=== PATIENT | male | born 1940 | race Caucasian/White ===

== ENCOUNTER 2016-08-01 19:03 | Emergency (ER) | payer MEDICARE, BC ==
[2016-08-01 19:08] VITALS: BP 167/81
[2016-08-01] MEDS ORDERED: LORazepam 2 MG/ML MDV IVPUSH ONE (19:25)
[2016-08-01] MEDS ORDERED: Glucagon,Human Recombinant 1 MG Vial IVPUSH ONE (19:25)
[2016-08-01] MEDS ORDERED: Lactated Ringers 1,000 ML IV SCH (19:30)
--- NOTE | 2016-08-01 20:22 | EDM.PDOC ---
ED HPI GI/ABDOMINAL - General Chief Complaint: Gastrointestinal Problem Stated Complaint: PSOOIBLE BLOCKAGE IN ESOPHAGUS Time Seen by Provider: 08/01/16 19:21 Source of Information: Reports: Patient History Limitations: Reports: No limitations - History of Present Illness INITIAL COMMENTS - FREE TEXT/NARRATIVE: The patient presents with an esophageal foreign body. He was eating steak at 6: 15pm and it got stuck in what feels like his lower esophagus. He could not pass even water. This has never happened to him before. He does burp a lot. He has no fever or chills, chest pain or shortness of breath. Timing/Duration: Reports: Hour(s): (6:15 pm) Location: other (epigastric) Quality: Reports: burning Severity: moderate Context: Denies: sick contact, bad/questionable food, out of country travel, recent surgery, recent trauma Associated Symptoms: Denies: chest pain, shoulder pain, fever/chills, nausea/ vomiting - Related Data Allergies/ADRs: Allergies Allergy/AdvReac Type Severity Reaction Status Date / Time azithromycin Allergy Anaphylactic Verified 03/08/16 19:19 Shock chlorhexidine Allergy Rash Verified 03/08/16 19:19 gatifloxacin [From Tequin] Allergy Anaphylactic Verified 03/08/16 19:19 Shock lansoprazole [From Prevacid] Allergy Anaphylactic Verified 03/08/16 19:19 Shock Penicillins Allergy Anaphylactic Verified 03/08/16 19:19 Shock Sulfa (Sulfonamide Allergy Rash Verified 03/08/16 19:19 Antibiotics) Home Meds: Home Meds Latanoprost [Xalatan 0.005% Ophth Soln] 1 drop EYEBOTH BEDTIME 12/15/14 [History ] Metoprolol Succinate [Toprol XL 50mg] 50 mg PO BID 12/15/14 [History] Albuterol [Proventil HFA] 6.7 gm INH Q6H PRN 11/13/15 [History] Multivitamin [Multivitamins] 1 tab PO DAILY 11/13/15 [History] Omeprazole Magnesium [Prilosec Otc] 20 mg PO DAILY 11/13/15 [History] Ondansetron HCl [Zofran] 2 tab PO Q4H PRN 11/13/15 [History] Sennosides/Docusate Sodium [Senna-Docusate Sodium] 1 each PO DAILY 06/05/16 [ History] Furosemide [Lasix] 20 mg PO DAILY #30 tablet 06/08/16 [Rx] Aspirin 325 mg PO DAILY 08/01/16 [History] Past Medical History HEENT History: Reports: Glaucoma, Impaired vision, Sinusitis Other HEENT History: wears eyeglasses Cardiovascular History: Reports: Hypertension Respiratory History: Reports: Bronchitis, recurrent, COPD Gastrointestinal History: Reports: Other (see below) Other Gastrointestinal History: states has alot of heartburn since being on chemo. Genitourinary History: Reports: Chronic renal insuffiency, Other (see below) Other Genitourinary History: Rt nephrectomy Musculoskeletal History: Reports: Arthritis Psychiatric History: Reports: Depression Oncologic (Cancer) History: Reports: Colon, Liver, Metastatic, Renal Other Oncologic History: on chemotherapy, with james cath L chest Dermatologic History: Reports: Psoriasis - Infectious Disease History Infectious Disease History: Reports: Measles, Mumps - Past Surgical History HEENT Surgical History: Reports: Cataract surgery GI Surgical History: Reports: Appendectomy, Cholecystectomy, Colon, Colonoscopy , Colostomy Musculoskeletal Surgical History: Reports: Other (see below) Other Musculoskeletal Surgeries/Procedures:: left ankle surgery 1978 Social & Family History - Family History Family Medical History: Noncontributory Other Oncologic Family History: aunt had brain cancer - Tobacco Use Smoking Status *Q: Former Smoker Years of Tobacco use: 40 Packs/Tins Daily: 1 Used Tobacco, but Quit: Yes Month Tobacco Last Used: 16 Second Hand Smoke Exposure: No - Caffeine Use Caffeine Use: Reports: Soda Other Caffeine Use: occasional - Recreational Drug Use Recreational Drug Use: No - Living Situation & Occupation Living situation: Reports: , with spouse Occupation: retired ED ROS GENERAL - Review of Systems Review Of Systems: See Below Constitutional: Reports: no symptoms HEENT: Reports: No symptoms Respiratory: Reports: No Symptoms Cardiovascular: Reports: No symptoms Endocrine: Reports: no symptoms GI/Abdominal: Reports: Abdominal pain, Other (Steak caught in his esophagus) : Reports: no symptoms Musculoskeletal: Reports: no symptoms ED EXAM, GI/ABD - Physical Exam Exam: See Below Exam Limited By: No limitations General Appearance: alert, no apparent distress Ears: normal external exam Nose: normal inspection Head: atraumatic, normocephalic Neck: normal inspection Respiratory/Chest: no respiratory distress, lungs clear, normal breath sounds Cardiovascular: regular rate, rhythm, no edema, no murmur GI/Abdominal: soft, non tender, no organomegaly, no mass Rectal (Males) Exam: Prostate nodule Extremities: normal inspection Course - Vital Signs Last Recorded V/S: Last Vital Signs Temp 99.1 F 08/01/16 19:05 Pulse 72 08/01/16 19:05 Resp 18 08/01/16 19:05 BP 167/81 H 08/01/16 19:05 Pulse Ox 100 08/01/16 19:05 - Orders/Labs/Meds Orders: Active Orders 24 hr Category Date Time Status Implanted Port Access [RC] URGENT Care 08/01/16 19:24 Active Lactated Ringers [Ringers, Lactated] 1,000 ml Med 08/01/16 19:30 Active IV ASDIRECTED Medication Orders Lactated Ringer's (Ringers, Lactated) 1,000 mls @ 100 mls/hr IV ASDIRECTED SHANNON Last Admin: 08/01/16 19:58 Dose: 100 mls/hr Meds: Medications Generic Name Dose Route Start Last Admin Trade Name Freq PRN Reason Stop Dose Admin Lactated Ringer's 1,000 mls @ 100 mls/hr 08/01/16 19:30 08/01/16 19:58 Ringers, Lactated IV 100 mls/hr ASDIRECTED SHANNON Administration Discontinued Medications Generic Name Dose Route Start Last Admin Trade Name Freq PRN Reason Stop Dose Admin Glucagon 1 mg 08/01/16 19:25 08/01/16 19:52 Glucagen IVPUSH 08/01/16 19:26 1 mg ONETIME ONE Administration Heparin Sodium (Porcine) 500 units 08/01/16 20:28 Heparin Lock Flush 100 Units/Ml Syringe FLUSH 08/01/16 20:29 ONETIME ONE Lorazepam 1 mg 08/01/16 19:25 08/01/16 19:50 Ativan IVPUSH 08/01/16 19:26 1 mg ONETIME ONE Administration - Re-Assessments/Exams Free Text/Narrative Re-Assessment/Exam: 08/01/16 20:20 I ordered an IV LR at 125mL/hr, glucagon 1mg IV and ativan 1mg IV. I went to check on him and it appears the food has passed. He could drink some water. I will discharge him and have him follow up with a general surgeon for an EGD. Departure - Departure Time of Disposition: 20:35 Disposition: Home, Self-Care 01 Condition: good Clinical Impression: Esophageal foreign body Qualifiers: Encounter type: initial encounter Qualified Code(s): T18.108A - Unspecified foreign body in esophagus causing other injury, initial encounter Referrals: Sim Salazar MD [Physician] - 1 Week Forms: ED Department Discharge Additional Instructions: Follow up with Dr Salazar for a scope to look at your esophagus. Try to eat a softer diet until then to avoid food getting stuck again. - My Orders Last 24 Hours: My Active Orders 08/01/16 19:24 Implanted Port Access [RC] URGENT 08/01/16 19:30 Lactated Ringers [Ringers, Lactated] 1,000 ml IV ASDIRECTED - Assessment/Plan Last 24 Hours: My Active Orders 08/01/16 19:24 Implanted Port Access [RC] URGENT 08/01/16 19:30 Lactated Ringers [Ringers, Lactated] 1,000 ml IV ASDIRECTED
== END 2016-08-01 20:48 | disposition home or self-care (01) ==
LOC: JD.ED 19:03
DX: T18.128A Food in esophagus causing other injury, initial encounter (principal); X58.XXXA Exposure to other specified factors, initial encounter; J44.9 Chronic obstructive pulmonary disease, unspecified; I12.9 Hypertensive chronic kidney disease with stage 1 through stage 4 chronic kidney disease, or unspecified chronic kidney disease; N18.9 Chronic kidney disease, unspecified; F32.9 Major depressive disorder, single episode, unspecified; C18.9 Malignant neoplasm of colon, unspecified; Z87.891 Personal history of nicotine dependence; Z88.0 Allergy status to penicillin; Z88.8 Allergy status to other drugs, medicaments and biological substances; Z79.899 Other long term (current) drug therapy
CPT/HCPCS: 96361; 96374; 96375; 99283; J1610; J1642; J2060; J7120; 99284

== ENCOUNTER 2016-10-24 10:52 | Emergency (ER) | payer MEDICARE, BC ==
--- NOTE | 2016-10-24 11:11 | EDM.PDOC ---
ED HPI GENERAL MEDICAL PROBLEM - General Chief Complaint: Chest Pain Stated Complaint: chest pain Time Seen by Provider: 10/24/16 11:00 Source of Information: Reports: Patient History Limitations: Reports: No Limitations - History of Present Illness INITIAL COMMENTS - FREE TEXT/NARRATIVE: 75-year-old male presents for evaluation and treatment of chest pain. Patient reports that the chest pain began around 6:30 this morning. He took 2 325 mg aspirin prior to arrival in the ER. The pain improved after the aspirin. Reports that the chest pain is in his left anterior shoulder and radiates down to his arm. Denies any radiation to his neck or back. He reports some shortness of breath but states this is chronic and has not noticed any changes. He also notes some lightheadedness. Denies any nausea, vomiting, dizziness, syncope, fevers, cough or weakness. Patient denies any recent travel. No cardiac history. No history of MIs, arrhythmias or valve problems. Patient previously smoked but quit about 17 years ago. He is not a diabetic Location: Reports: Chest, Upper Extremity, Left - Related Data Allergies Allergy/AdvReac Type Severity Reaction Status Date / Time azithromycin Allergy Anaphylactic Verified 10/24/16 11:02 Shock chlorhexidine Allergy Rash Verified 10/24/16 11:02 gatifloxacin [From Tequin] Allergy Anaphylactic Verified 10/24/16 11:02 Shock lansoprazole [From Prevacid] Allergy Anaphylactic Verified 10/24/16 11:02 Shock Penicillins Allergy Anaphylactic Verified 10/24/16 11:02 Shock Sulfa (Sulfonamide Allergy Rash Verified 10/24/16 11:02 Antibiotics) Home Meds: Home Meds Metoprolol Succinate [Toprol XL 50mg] 50 mg PO BID 12/15/14 [History] Albuterol [Proventil HFA] 6.7 gm INH Q6H PRN 11/13/15 [History] Multivitamin [Multivitamins] 1 tab PO DAILY 11/13/15 [History] Omeprazole Magnesium [Prilosec Otc] 20 mg PO DAILY 11/13/15 [History] Ondansetron HCl [Zofran] 2 tab PO Q4H PRN 11/13/15 [History] Sennosides/Docusate Sodium [Senna-Docusate Sodium] 1 each PO DAILY 06/05/16 [ History] Furosemide [Lasix] 20 mg PO DAILY #30 tablet 06/08/16 [Rx] Aspirin 325 mg PO DAILY 08/01/16 [History] Past Medical History HEENT History: Reports: Glaucoma, Impaired Vision, Sinusitis Other HEENT History: wears eyeglasses Cardiovascular History: Reports: Hypertension Respiratory History: Reports: Bronchitis, Recurrent, COPD Gastrointestinal History: Reports: Other (See Below) Other Gastrointestinal History: states has alot of heartburn since being on chemo. Genitourinary History: Reports: Chronic Renal Insuffiency, Other (See Below) Other Genitourinary History: Rt nephrectomy Musculoskeletal History: Reports: Arthritis Psychiatric History: Reports: Depression Oncologic (Cancer) History: Reports: Colon, Liver, Metastatic, Renal Other Oncologic History: on chemotherapy, with james cath L chest Dermatologic History: Reports: Psoriasis - Infectious Disease History Infectious Disease History: Reports: Measles, Mumps - Past Surgical History HEENT Surgical History: Reports: Cataract Surgery Cardiovascular Surgical History: Reports: Vascular Surgery Female Surgical History: Reports: Other (See Below) Musculoskeletal Surgical History: Reports: Other (See Below) Social & Family History - Family History Family Medical History: Noncontributory Other Oncologic Family History: aunt had brain cancer - Tobacco Use Smoking Status *Q: Former Smoker Years of Tobacco use: 40 Packs/Tins Daily: 1 Used Tobacco, but Quit: Yes Month Tobacco Last Used: 16 Second Hand Smoke Exposure: No - Caffeine Use Caffeine Use: Reports: Soda Other Caffeine Use: occasional - Recreational Drug Use Recreational Drug Use: No - Living Situation & Occupation Living situation: Reports: , with Spouse Occupation: Retired ED ROS GENERAL - Review of Systems Review Of Systems: See Below Constitutional: Denies: Fever Respiratory: Denies: Cough Cardiovascular: Reports: Chest Pain GI/Abdominal: Denies: Abdominal Pain, Nausea, Vomiting Musculoskeletal: Reports: Shoulder Pain (left), Arm Pain (left) Neurological: Denies: Syncope ED EXAM, GENERAL - Physical Exam Exam: See Below Exam Limited By: No Limitations General Appearance: Alert, WD/WN, No Apparent Distress Ears: Normal External Exam Nose: Normal Inspection Neck: Normal Inspection Respiratory/Chest: No Respiratory Distress, Lungs Clear, Normal Breath Sounds Cardiovascular: Normal Peripheral Pulses, Regular Rate, Rhythm, No Murmur Peripheral Pulses: 2+: Radial (L), Radial (R) GI/Abdominal: Soft, Non-Tender Extremities: Normal Inspection, Normal Range of Motion, Non-Tender Neurological: Alert, Oriented, Normal Cognition Psychiatric: Normal Affect, Normal Mood Skin Exam: Warm, Dry, Normal Color EKG INTERPRETATION EKG Date: 10/24/16 Time: 10:55 Rhythm: NSR Rate (beats/min): 63 [place]: LAD-left axis deviation P-wave: present QRS: RBBB ST-T: normal QT: normal Comparison: no change EKG Interpretation Comments: NSR at 63 bpm. RBBB amd LAFB. atrial premature complex. Reviewed by myself and Dr. Freedman. Course - Vital Signs Last Recorded V/S: Last Vital Signs Temp 36.9 C 10/24/16 11:24 Pulse 70 10/24/16 15:14 Resp 19 10/24/16 15:14 BP 161/75 H 10/24/16 15:14 Pulse Ox 100 10/24/16 15:14 - Orders/Labs/Meds Orders: Active Orders 24 hr Category Date Time Status Cardiac Monitoring [RC] . DIRECTED Care 10/24/16 11:12 Active EKG 12 Lead [EKG Documentation Completion] [RC] STAT Care 10/24/16 11:12 Active Chest 2V [CR] Stat Exams 10/24/16 11:11 Taken Labs: Laboratory Tests 10/24/16 10/24/16 10/24/16 Range/Units 11:20 11:20 11:20 WBC 7.61 (4.23-9.07) K/mm3 RBC 4.77 (4.63-6.08) M/mm3 Hgb 12.3 L (13.7-17.5) gm/L Hct 38.5 L (40.1-51.0) % MCV 80.7 (79.0-92.2) fl MCH 25.8 (25.7-32.2) pg MCHC 31.9 L (32.2-35.5) g/dl RDW Std Deviation 48.0 H (35.1-43.9) fL Plt Count 177 (163-337) K/mm3 MPV 11.4 (9.4-12.3) fl Neut % (Auto) 69.9 H (34.0-67.9) % Lymph % (Auto) 16.3 L (21.8-53.1) % Teller % (Auto) 8.8 (5.3-12.2) % Eos % (Auto) 4.6 (0.8-7.0) Baso % (Auto) 0.3 (0.1-1.2) % Neut # (Auto) 5.32 (1.78-5.38) K/mm3 Lymph # (Auto) 1.24 L (1.32-3.57) K/mm3 Teller # (Auto) 0.67 (0.30-0.82) K/mm3 Eos # (Auto) 0.35 (0.04-0.54) K/mm3 Baso # (Auto) 0.02 (0.01-0.08) K/mm3 PT 10.3 (8.0-13.0) SECONDS INR 0.95 APTT 28 (22-36) SECONDS Sodium 142 (136-145) mEq/L Potassium 3.8 (3.5-5.1) mEq/L Chloride 108 H (98-107) mEq/L Carbon Dioxide 20 L (21-32) mEq/L Anion Gap 17.8 H (5-15) BUN 27 H (7-18) mg/dL Creatinine 1.5 H (0.7-1.3) mg/dL Est Cr Clr Drug Dosing TNP Estimated GFR (MDRD) 46 (>60) mL/min BUN/Creatinine Ratio 18.0 (14-18) Glucose 117 H (83-115) mg/dL Calcium 8.1 L (8.5-10.1) mg/dL Total Bilirubin 0.3 (0.2-1.0) mg/dL AST 12 L (15-37) U/L ALT 17 (16-63) U/L Alkaline Phosphatase 136 H (46-116) U/L Troponin I < 0.017 (0.00-0.056) ng/mL Total Protein 6.6 (6.4-8.2) g/dl Albumin 3.5 (3.4-5.0) g/dl Globulin 3.1 gm/dL Albumin/Globulin Ratio 1.1 (1-2) /12/03 Range/Units 13:26 WBC (4.23-9.07) K/mm3 RBC (4.63-6.08) M/mm3 Hgb (13.7-17.5) gm/L Hct (40.1-51.0) % MCV (79.0-92.2) fl MCH (25.7-32.2) pg MCHC (32.2-35.5) g/dl RDW Std Deviation (35.1-43.9) fL Plt Count (163-337) K/mm3 MPV (9.4-12.3) fl Neut % (Auto) (34.0-67.9) % Lymph % (Auto) (21.8-53.1) % Teller % (Auto) (5.3-12.2) % Eos % (Auto) (0.8-7.0) Baso % (Auto) (0.1-1.2) % Neut # (Auto) (1.78-5.38) K/mm3 Lymph # (Auto) (1.32-3.57) K/mm3 Teller # (Auto) (0.30-0.82) K/mm3 Eos # (Auto) (0.04-0.54) K/mm3 Baso # (Auto) (0.01-0.08) K/mm3 PT (8.0-13.0) SECONDS INR APTT (22-36) SECONDS Sodium (136-145) mEq/L Potassium (3.5-5.1) mEq/L Chloride (98-107) mEq/L Carbon Dioxide (21-32) mEq/L Anion Gap (5-15) BUN (7-18) mg/dL Creatinine (0.7-1.3) mg/dL Est Cr Clr Drug Dosing Estimated GFR (MDRD) (>60) mL/min BUN/Creatinine Ratio (14-18) Glucose (83-115) mg/dL Calcium (8.5-10.1) mg/dL Total Bilirubin (0.2-1.0) mg/dL AST (15-37) U/L ALT (16-63) U/L Alkaline Phosphatase (46-116) U/L Troponin I < 0.017 (0.00-0.056) ng/mL Total Protein (6.4-8.2) g/dl Albumin (3.4-5.0) g/dl Globulin gm/dL Albumin/Globulin Ratio (1-2) Meds: Medications Discontinued Medications Generic Name Dose Route Start Last Admin Trade Name Freq PRN Reason Stop Dose Admin Heparin Sodium (Porcine) Confirm 10/24/16 14:16 10/24/16 14:30 Heparin Lock Flush 100 Units/Ml Administered 10/24/16 14:17 500 units Dose Administration 500 units .ROUTE .STK-MED ONE Heparin Sodium (Porcine) Confirm 10/24/16 14:24 10/24/16 15:21 Heparin Lock Flush 100 Units/Ml Administered 10/24/16 14:25 Not Given Dose 500 units .ROUTE .STK-MED ONE - Radiology Interpretation Free Text/Narrative:: chest 2 view shows no acute intrathoracic changes. Reviewed by myself and Dr. Freedman. - Re-Assessments/Exams Free Text/Narrative Re-Assessment/Exam: 10/24/16 13:00 Labs returned. White blood cell count is 7.1, hemoglobin is 12.3 and platelets are 177. Sodium is 142, potassium 3.8 chloride 108. Anion gap is 17.8. Creatinine is 1.5. BUN is 27. Glucose is 117. AST is 12, ALT 17 and alkaline phosphatase is elevated at 136. PT is 10.3, INR 0.95. PTT is 28. Troponin is within normal limits at less than 0.01 I reviewed the lab, EKG and chest xray results with the patient. Plan will be to repeat the troponin and if normal we will allow him to go home. Patient reports since coming to the ED he has been pain free. No concerns at this time. 10/24/16 14:07 Repeat trop is normal at <0.017 Reviewed repeat trop with the patient. Continues to be pain free. Discharge instructions as documented. Departure - Departure Time of Disposition: 14:08 Disposition: Home, Self-Care 01 Condition: good Clinical Impression: Atypical chest pain Instructions: Nonspecific Chest Pain Referrals: Brendan Caldera MD [Primary Care Provider] - Forms: ED Department Discharge, Return to Work/School Form Additional Instructions: Go home and rest. [id number] aspirin or Tylenol for pain relief. Recommend heat to the sore area. Follow up with her primary care provider as needed. Please return to the ER if your symptoms change or worsen. - My Orders Last 24 Hours: My Active Orders 10/24/16 11:11 Chest 2V [CR] Stat 10/24/16 11:12 Cardiac Monitoring [RC] . DIRECTED EKG 12 Lead [EKG Documentation Completion] [RC] STAT - Assessment/Plan Last 24 Hours: My Active Orders 10/24/16 11:11 Chest 2V [CR] Stat 10/24/16 11:12 Cardiac Monitoring [RC] . DIRECTED EKG 12 Lead [EKG Documentation Completion] [RC] STAT
[2016-10-24 15:16] VITALS: BP 161/75
--- NOTE | 2016-10-25 09:24 | CR ---
Chest: Two views of the chest are obtained. Comparison: Previous chest x-ray 06/02/16. Infusion port seen entering from the left side which is stable in appearance from prior chest x-ray. Heart size is normal. Mediastinum is also within normal limits. Nodule seen with left midlung which is stable. No acute infiltrates are seen. Diaphragms are flattened on the lateral view compatible with emphysematous change. Mild degenerative endplate spurring scattered throughout the spine. Impression: 1. Incidental findings which are stable. Nothing acute is identified on two-view chest x-ray. Diagnostic code #2
== END 2016-10-24 15:22 | disposition home or self-care (01) ==
LOC: JD.ED 10:52
DX: R07.89 Other chest pain (principal); J44.9 Chronic obstructive pulmonary disease, unspecified; I12.9 Hypertensive chronic kidney disease with stage 1 through stage 4 chronic kidney disease, or unspecified chronic kidney disease; N18.9 Chronic kidney disease, unspecified; M19.90 Unspecified osteoarthritis, unspecified site; F32.9 Major depressive disorder, single episode, unspecified; L40.9 Psoriasis, unspecified; Z87.891 Personal history of nicotine dependence; Z85.038 Personal history of other malignant neoplasm of large intestine; Z85.05 Personal history of malignant neoplasm of liver; Z85.53 Personal history of malignant neoplasm of renal pelvis; Z79.82 Long term (current) use of aspirin; Z79.899 Other long term (current) drug therapy; Z88.0 Allergy status to penicillin; Z88.2 Allergy status to sulfonamides; Z88.8 Allergy status to other drugs, medicaments and biological substances; Z88.1 Allergy status to other antibiotic agents; Z98.890 Other specified postprocedural states; Z98.49 Cataract extraction status, unspecified eye
CPT/HCPCS: 36415; 36591; 71020; 80053; 84484; 85025; 85610; 85730; 93005; 99285; J1642; 99284

== ENCOUNTER 2017-02-01 21:04 | Emergency (ER) | payer MEDICARE, BC ==
[2017-02-01 21:13] VITALS: BP 145/76
--- NOTE | 2017-02-01 21:17 | EDM.PDOC ---
ED HPI GENERAL MEDICAL PROBLEM - General Chief Complaint: General Stated Complaint: SOMETHING IN ESOPHAGUS Time Seen by Provider: 02/01/17 21:16 - History of Present Illness INITIAL COMMENTS - FREE TEXT/NARRATIVE: 76-year-old male presents emergency room with some stuck in his lower throat. The patient was eating potato and sausage soup and felt it stuck in his lower throat this occurred about an hour and a half ago. Patient has difficulty passing water he is not having difficulty passing his secretions at this time however. Patient has had a prior occurrence like this that was treated with glucagon. Patient said significant abdominal surgeries for colon cancer complicated by secondary infection and revisions due to this. He thinks he has some scar tissue in his lower esophagus. - Related Data Allergies Allergy/AdvReac Type Severity Reaction Status Date / Time azithromycin Allergy Anaphylactic Verified 02/01/17 21:13 Shock chlorhexidine Allergy Rash Verified 02/01/17 21:13 gatifloxacin [From Tequin] Allergy Anaphylactic Verified 02/01/17 21:13 Shock lansoprazole [From Prevacid] Allergy Anaphylactic Verified 02/01/17 21:13 Shock Penicillins Allergy Anaphylactic Verified 02/01/17 21:13 Shock Sulfa (Sulfonamide Allergy Rash Verified 02/01/17 21:13 Antibiotics) Home Meds: Home Meds Metoprolol Succinate [Toprol XL 50mg] 50 mg PO BID 12/15/14 [History] Albuterol [Proventil HFA] 6.7 gm INH Q6H PRN 11/13/15 [History] Multivitamin [Multivitamins] 1 tab PO DAILY 11/13/15 [History] Omeprazole Magnesium [Prilosec Otc] 20 mg PO DAILY 11/13/15 [History] Ondansetron HCl [Zofran] 2 tab PO Q4H PRN 11/13/15 [History] Sennosides/Docusate Sodium [Senna-Docusate Sodium] 1 each PO DAILY 06/05/16 [ History] Furosemide [Lasix] 20 mg PO DAILY #30 tablet 06/08/16 [Rx] Aspirin 325 mg PO DAILY 08/01/16 [History] Past Medical History HEENT History: Reports: Glaucoma, Impaired Vision, Sinusitis Other HEENT History: wears eyeglasses Cardiovascular History: Reports: Hypertension Respiratory History: Reports: Bronchitis, Recurrent, COPD Gastrointestinal History: Reports: Other (See Below) Other Gastrointestinal History: states has alot of heartburn since being on chemo. Genitourinary History: Reports: Chronic Renal Insuffiency, Other (See Below) Other Genitourinary History: Rt nephrectomy Musculoskeletal History: Reports: Arthritis Psychiatric History: Reports: Depression Oncologic (Cancer) History: Reports: Colon, Liver, Metastatic, Renal Other Oncologic History: off of chemo for the past 9 months, with james cath L chest Dermatologic History: Reports: Psoriasis - Infectious Disease History Infectious Disease History: Reports: Measles, Mumps - Past Surgical History HEENT Surgical History: Reports: Cataract Surgery Cardiovascular Surgical History: Reports: Vascular Surgery Musculoskeletal Surgical History: Reports: Other (See Below) Social & Family History - Family History Family Medical History: Noncontributory Other Oncologic Family History: aunt had brain cancer - Tobacco Use Smoking Status *Q: Former Smoker Years of Tobacco use: 40 Packs/Tins Daily: 1 Used Tobacco, but Quit: Yes Month Tobacco Last Used: 16 Second Hand Smoke Exposure: No - Caffeine Use Caffeine Use: Reports: Soda Other Caffeine Use: occasional - Recreational Drug Use Recreational Drug Use: No - Living Situation & Occupation Living situation: Reports: , with Spouse Occupation: Retired ED ROS GENERAL - Review of Systems Review Of Systems: See Below Constitutional: Reports: No Symptoms HEENT: Reports: No Symptoms Respiratory: Reports: No Symptoms Cardiovascular: Reports: No Symptoms GI/Abdominal: Reports: Abdominal Pain. Denies: Constipation, Diarrhea, Nausea, Vomiting : Reports: No Symptoms Neurological: Reports: No Symptoms ED EXAM, GENERAL - Physical Exam Exam: See Below Exam Limited By: No Limitations General Appearance: Alert, No Apparent Distress, Other (He does better sitting up no problems with secretions vital signs stable afebrile O2 saturation 99% on room air) Head: Atraumatic, Normocephalic Neck: Normal Inspection, Supple, Non-Tender, Full Range of Motion. No: Lymphadenopathy (L), Lymphadenopathy (R) Respiratory/Chest: No Respiratory Distress, Lungs Clear, Normal Breath Sounds Cardiovascular: Regular Rate, Rhythm, No Edema, No Murmur GI/Abdominal: Normal Bowel Sounds, Soft, Non-Tender Course - Vital Signs Last Recorded V/S: Last Vital Signs Temp 36.8 C 02/01/17 21:10 Pulse 66 02/01/17 21:10 Resp 16 09/15/17 21:10 BP 145/76 H 02/01/17 21:10 Pulse Ox 99 02/01/17 21:10 - Orders/Labs/Meds Orders: Active Orders 24 hr Category Date Time Status Lactated Ringers [Ringers, Lactated] 1,000 ml Med 02/01/17 21:30 Active IV ASDIRECTED Medication Orders Lactated Ringer's (Ringers, Lactated) 1,000 mls @ 50 mls/hr IV ASDIRECTED SHANNON Last Admin: 02/01/17 21:42 Dose: 50 mls/hr Meds: Medications Generic Name Dose Route Start Last Admin Trade Name Freq PRN Reason Stop Dose Admin Lactated Ringer's 1,000 mls @ 50 mls/hr 02/01/17 21:30 02/01/17 21:42 Ringers, Lactated IV 50 mls/hr ASDIRECTED SHANNON Administration Discontinued Medications Generic Name Dose Route Start Last Admin Trade Name Freq PRN Reason Stop Dose Admin Lorazepam 1 mg 02/01/17 21:23 02/01/17 21:43 Ativan IVPUSH 02/01/17 21:24 1 mg ONETIME ONE Administration - Re-Assessments/Exams Free Text/Narrative Re-Assessment/Exam: 02/01/17 22:30 Patient received IV Ativan 1 mg and glucagon 1 mg and after about 20 minutes was able to drink 2 glasses of water without difficulty he feels much better we will discharge home Departure - Departure Time of Disposition: 22:30 Disposition: Home, Self-Care 01 Clinical Impression: Esophageal foreign body Qualifiers: Encounter type: initial encounter Qualified Code(s): T18.108A - Unspecified foreign body in esophagus causing other injury, initial encounter - Discharge Information Referrals: Brendan Caldera MD [Primary Care Provider] - Forms: ED Department Discharge Additional Instructions: Return to the emergency room with any questions problems or worsening symptoms. Follow up with her regular physician in the office and discuss the need for further evaluation of this. - My Orders Last 24 Hours: My Active Orders 02/01/17 21:30 Lactated Ringers [Ringers, Lactated] 1,000 ml IV ASDIRECTED - Assessment/Plan Last 24 Hours: My Active Orders 02/01/17 21:30 Lactated Ringers [Ringers, Lactated] 1,000 ml IV ASDIRECTED
[2017-02-01] MEDS ORDERED: LORazepam 2 MG/ML MDV IVPUSH ONE (21:23)
[2017-02-01] MEDS ORDERED: Lactated Ringers 1,000 ML IV SCH (21:30)
== END 2017-02-01 22:47 | disposition home or self-care (01) ==
LOC: JD.ED 21:04
DX: T18.128A Food in esophagus causing other injury, initial encounter (principal); I10 Essential (primary) hypertension; J44.9 Chronic obstructive pulmonary disease, unspecified; F32.9 Major depressive disorder, single episode, unspecified; Z88.1 Allergy status to other antibiotic agents; Z88.0 Allergy status to penicillin; Z88.2 Allergy status to sulfonamides; Z88.8 Allergy status to other drugs, medicaments and biological substances; Z79.899 Other long term (current) drug therapy; Z79.82 Long term (current) use of aspirin; Z98.49 Cataract extraction status, unspecified eye; Z87.891 Personal history of nicotine dependence
CPT/HCPCS: 96361; 96374; 99284; J2060; J7120; 99283

== ENCOUNTER 2017-03-21 18:16 | Observation (INO) | payer MEDICARE, BC ==
[2017-03-21] MEDS ORDERED: Sodium Chloride 0.9% 10 ML Syringe FLUSH PRN (18:30)
--- NOTE | 2017-03-21 19:02 | EDM.PDOC ---
<Dane Mujica - Last Filed: 03/21/17 19:03> ED HPI GENERAL MEDICAL PROBLEM - General Chief Complaint: Chest Pain Stated Complaint: CHEST PAIN Time Seen by Provider: 03/21/17 18:30 Source of Information: Reports: Patient, RN Notes Reviewed - History of Present Illness INITIAL COMMENTS - FREE TEXT/NARRATIVE: 76-year-old male has come in with intermittent chest discomfort that started last evening. That has continued today. States he has been experiencing "brief episodes of discomfort that travel "across my chest". He states he has had mild shortness of breath with exertion. He does not feel short of breath at rest. He has not been coughing. No abdominal pain nausea or vomiting. No unusual dizziness. He has not had discomfort traveling into the back or to the left shoulder or arm. He does not have known history of coronary artery disease. He does have history of hypertension. Treatments [employer]: Reports: EKG Chest Pain Score (Numeric/FACES): 7 - Related Data Allergies Allergy/AdvReac Type Severity Reaction Status Date / Time azithromycin Allergy Anaphylactic Verified 03/21/17 18:24 Shock gatifloxacin [From Tequin] Allergy Anaphylactic Verified 03/21/17 18:24 Shock lansoprazole [From Prevacid] Allergy Anaphylactic Verified 03/21/17 18:24 Shock Penicillins Allergy Anaphylactic Verified 03/21/17 18:24 Shock Sulfa (Sulfonamide Allergy Rash Verified 03/21/17 18:24 Antibiotics) Home Meds: Home Meds Metoprolol Succinate [Toprol XL 50mg] 50 mg PO DAILY 12/15/14 [History] Albuterol [Proventil HFA] 6.7 gm INH Q6H PRN 11/13/15 [History] Multivitamin [Multivitamins] 1 tab PO DAILY 11/13/15 [History] Omeprazole Magnesium [Prilosec Otc] 20 mg PO DAILY 11/13/15 [History] Ondansetron HCl [Zofran] 2 tab PO Q4H PRN 11/13/15 [History] Sennosides/Docusate Sodium [Senna-Docusate Sodium] 1 each PO DAILY 06/05/16 [ History] Furosemide [Lasix] 20 mg PO DAILY #30 tablet 06/08/16 [Rx] Aspirin 325 mg PO DAILY 08/01/16 [History] Allopurinol [Zyloprim] 50 mg PO DAILY 03/21/17 [History] Past Medical History HEENT History: Reports: Glaucoma, Impaired Vision, Sinusitis Other HEENT History: wears eyeglasses Cardiovascular History: Reports: Hypertension Respiratory History: Reports: Bronchitis, Recurrent, COPD Gastrointestinal History: Reports: Other (See Below) Other Gastrointestinal History: states has alot of heartburn since being on chemo. Genitourinary History: Reports: Chronic Renal Insuffiency, Other (See Below) Other Genitourinary History: Rt nephrectomy Musculoskeletal History: Reports: Arthritis Psychiatric History: Reports: Depression Oncologic (Cancer) History: Reports: Colon, Liver, Metastatic, Renal Other Oncologic History: off of chemo for the past 9 months, with james cath L chest Dermatologic History: Reports: Psoriasis - Infectious Disease History Infectious Disease History: Reports: Measles, Mumps - Past Surgical History HEENT Surgical History: Reports: Cataract Surgery Cardiovascular Surgical History: Reports: Vascular Surgery Musculoskeletal Surgical History: Reports: Other (See Below) Social & Family History - Family History Family Medical History: Noncontributory Other Oncologic Family History: aunt had brain cancer - Tobacco Use Smoking Status *Q: Former Smoker Years of Tobacco use: 40 Packs/Tins Daily: 1 Used Tobacco, but Quit: Yes Month Tobacco Last Used: 16 Second Hand Smoke Exposure: No - Caffeine Use Caffeine Use: Reports: Soda Other Caffeine Use: occasional - Recreational Drug Use Recreational Drug Use: No - Living Situation & Occupation Living situation: Reports: , with Spouse Occupation: Retired ED ROS GENERAL - Review of Systems Review Of Systems: See Below Constitutional: Denies: Fever, Chills, Diaphoresis HEENT: Reports: No Symptoms Respiratory: Reports: Shortness of Breath. Denies: Cough (Mild exertional) Cardiovascular: Reports: Chest Pain (Brief episodes of discomfort that "travel across his chest") GI/Abdominal: Denies: Abdominal Pain, Nausea, Vomiting Musculoskeletal: Denies: Neck Pain, Shoulder Pain, Arm Pain Skin: Reports: No Symptoms Neurological: Denies: Dizziness, Numbness, Tingling, Trouble Speaking, Weakness ED EXAM, GENERAL - Physical Exam Exam: See Below General Appearance: Alert, No Apparent Distress Throat/Mouth: Normal Inspection, Normal Oropharynx Neck: Supple Respiratory/Chest: No Respiratory Distress, Lungs Clear, Normal Breath Sounds Cardiovascular: Irregularly Irregular GI/Abdominal: Soft, Non-Tender. No: Guarding Back Exam: Normal Inspection. No: CVA Tenderness (L), CVA Tenderness (R) Extremities: Normal Inspection. No: Pedal Edema, Leg Pain, Increased Warmth, Redness Neurological: Alert, Oriented, No Motor/Sensory Deficits Skin Exam: Warm, Dry, Normal Color EKG INTERPRETATION EKG Date: 03/21/17 [place]: Normal P-Wave: Present QRS: Other (LAFB) ST-T: Normal Course - Vital Signs Last Recorded V/S: Last Vital Signs Temp 36.6 C 03/21/17 18:24 Pulse 73 03/21/17 18:24 Resp 18 03/21/17 18:24 BP 160/73 H 03/21/17 18:24 Pulse Ox 100 03/21/17 18:24 - Orders/Labs/Meds Orders: Active Orders 24 hr Category Date Time Status EKG 12 Lead [EKG Documentation Completion] [RC] STAT Care 03/21/17 18:31 Active Peripheral IV Care [RC] . DIRECTED Care 03/21/17 18:31 Active Chest 1V Frontal [CR] Stat Exams 03/21/17 18:31 Taken Sodium Chloride 0.9% [Saline Flush] Med 03/21/17 18:30 Active 10 ml FLUSH ASDIRECTED PRN Peripheral IV Insertion Adult [OM.PC] Stat Oth 03/21/17 18:31 Ordered Medication Orders Sodium Chloride (Saline Flush) 10 ml FLUSH ASDIRECTED PRN PRN Reason: Keep Vein Open Last Admin: 03/21/17 18:55 Dose: 10 ml Labs: Laboratory Tests 03/21/17 03/21/17 03/21/17 Range/Units 18:47 18:47 18:47 WBC 8.09 (4.23-9.07) K/mm3 RBC 4.66 (4.63-6.08) M/mm3 Hgb 12.9 L (13.7-17.5) gm/L Hct 39.4 L (40.1-51.0) % MCV 84.5 (79.0-92.2) fl MCH 27.7 (25.7-32.2) pg MCHC 32.7 (32.2-35.5) g/dl RDW Std Deviation 43.7 (35.1-43.9) fL Plt Count 179 (163-337) K/mm3 MPV 11.3 (9.4-12.3) fl Neut % (Auto) 69.9 H (34.0-67.9) % Lymph % (Auto) 16.3 L (21.8-53.1) % [place] % (Auto) 9.3 (5.3-12.2) % Eos % (Auto) 4.0 (0.8-7.0) Baso % (Auto) 0.4 (0.1-1.2) % Neut # (Auto) 5.66 H (1.78-5.38) K/mm3 Lymph # (Auto) 1.32 (1.32-3.57) K/mm3 [place] # (Auto) 0.75 (0.30-0.82) K/mm3 Eos # (Auto) 0.32 (0.04-0.54) K/mm3 Baso # (Auto) 0.03 (0.01-0.08) K/mm3 PT (8.0-13.0) SECONDS INR APTT (22-36) SECONDS D-Dimer, Quantitative (0.19-0.59) mg/L Sodium 143 (136-145) mEq/L Potassium 4.0 (3.5-5.1) mEq/L Chloride 109 H (98-107) mEq/L Carbon Dioxide 22 (21-32) mEq/L Anion Gap 16.0 H (5-15) BUN 30 H (7-18) mg/dL Creatinine 1.7 H (0.7-1.3) mg/dL Est Cr Clr Drug Dosing 35.21 mL/min Estimated GFR (MDRD) 39 (>60) mL/min BUN/Creatinine Ratio 17.6 (14-18) Glucose 126 H (83-115) mg/dL Calcium 8.0 L (8.5-10.1) mg/dL Magnesium (1.8-2.4) mg/dl Total Bilirubin 0.3 (0.2-1.0) mg/dL AST 15 (15-37) U/L ALT 15 L (16-63) U/L Alkaline Phosphatase 132 H (46-116) U/L Troponin I < 0.017 (0.00-0.056) ng/mL NT-Pro-B Natriuret Pep 203 (0-450) pg/mL Total Protein 6.2 L (6.4-8.2) g/dl Albumin 3.3 L (3.4-5.0) g/dl Globulin 2.9 gm/dL Albumin/Globulin Ratio 1.1 (1-2) 03/21/17 03/21/17 Range/Units 18:47 18:47 WBC (4.23-9.07) K/mm3 RBC (4.63-6.08) M/mm3 Hgb (13.7-17.5) gm/L Hct (40.1-51.0) % MCV (79.0-92.2) fl MCH (25.7-32.2) pg MCHC (32.2-35.5) g/dl RDW Std Deviation (35.1-43.9) fL Plt Count (163-337) K/mm3 MPV (9.4-12.3) fl Neut % (Auto) (34.0-67.9) % Lymph % (Auto) (21.8-53.1) % [place] % (Auto) (5.3-12.2) % Eos % (Auto) (0.8-7.0) Baso % (Auto) (0.1-1.2) % Neut # (Auto) (1.78-5.38) K/mm3 Lymph # (Auto) (1.32-3.57) K/mm3 [place] # (Auto) (0.30-0.82) K/mm3 Eos # (Auto) (0.04-0.54) K/mm3 Baso # (Auto) (0.01-0.08) K/mm3 PT 10.6 (8.0-13.0) SECONDS INR 0.97 APTT 28 (22-36) SECONDS D-Dimer, Quantitative 0.20 (0.19-0.59) mg/L Sodium (136-145) mEq/L Potassium (3.5-5.1) mEq/L Chloride (98-107) mEq/L Carbon Dioxide (21-32) mEq/L Anion Gap (5-15) BUN (7-18) mg/dL Creatinine (0.7-1.3) mg/dL Est Cr Clr Drug Dosing mL/min Estimated GFR (MDRD) (>60) mL/min BUN/Creatinine Ratio (14-18) Glucose (83-115) mg/dL Calcium (8.5-10.1) mg/dL Magnesium 2.1 (1.8-2.4) mg/dl Total Bilirubin (0.2-1.0) mg/dL AST (15-37) U/L ALT (16-63) U/L Alkaline Phosphatase (46-116) U/L Troponin I (0.00-0.056) ng/mL NT-Pro-B Natriuret Pep (0-450) pg/mL Total Protein (6.4-8.2) g/dl Albumin (3.4-5.0) g/dl Globulin gm/dL Albumin/Globulin Ratio (1-2) Meds: Medications Generic Name Dose Route Start Last Admin Trade Name Freq PRN Reason Stop Dose Admin Sodium Chloride 10 ml 03/21/17 18:30 03/21/17 18:55 Saline Flush FLUSH 10 ml ASDIRECTED PRN Administration Keep Vein Open - Re-Assessments/Exams Free Text/Narrative Re-Assessment/Exam: 03/21/17 19:03. Patient arrived just a short time ago just before change of shift. He is going to need a full cardio respiratory workup. Appropriate labs and chest x-ray have been ordered. I'm going to transfer care to Dr. Zamudio at this time. Departure - Departure Disposition: Refer to Observation Clinical Impression: Chest discomfort <Clifton Zamudio - Last Filed: 03/21/17 21:30> Course - Re-Assessments/Exams Free Text/Narrative Re-Assessment/Exam: 03/21/17 21:[address] Hogue, and care of the patient assumed. I then interviewed the patient. He describes a chest pressure, a discomfort, not a pain , felt across his chest 2 days ago, 03/19/2017 that developed gradually and persisted all day, but was gone yesterday morning, 03/20/2017, when he woke. The same discomfort recurred around noon today and persists until now. He has associated lightheadedness and generally not feeling well. His ECG demonstrates what appears to be either a sinus arrhythmia or a normal sinus rhythm with frequent PACs. The remainder of his workup is unremarkable. The patient states that he underwent a chemical stress test 2 years ago. I am concerned that his symptoms may be an atypical presentation of angina, and I am recommending placement of the hospital for repeat stress test. The patient and his agree. 03/21/17 21:[address] Hopkins at 21:06. He agrees to place the patient into observation for a chemical stress test. Departure - Departure Time of Disposition: 21:10 Condition: Good
[2017-03-21] MEDS ORDERED: Morphine 2 MG/ML Syringe IVPUSH PRN (23:16)
[2017-03-21] MEDS ORDERED: Acetaminophen 325 MG Tab PO PRN (23:16)
[2017-03-21] MEDS ORDERED: Acetaminophen/HYDROcodone 325-5 MG Tab PO PRN (23:16)
[2017-03-21] MEDS ORDERED: Temazepam 15 MG Cap PO PRN (23:18)
[2017-03-21] MEDS ORDERED: Promethazine 12.5 MG in Sodium Chloride 0.9% 50 ML IV PRN (23:18)
[2017-03-21] MEDS ORDERED: Docusate Sodium 100 MG Cap PO PRN (23:18)
[2017-03-21] MEDS ORDERED: Albuterol/Ipratropium 3.0-0.5 MG/3 ML Neb Soln NEB PRN (23:18)
[2017-03-21] MEDS ORDERED: LORazepam 2 MG/ML MDV IV PRN (23:18)
[2017-03-21] MEDS ORDERED: Nitroglycerin 0.4 MG Tab.SL SL PRN (23:18)
[2017-03-21] MEDS ORDERED: Bisacodyl 5 MG Tab PO PRN (23:18)
[2017-03-21] MEDS ORDERED: Ondansetron 4 MG/2 ML SDV IV PRN (23:18)
[2017-03-21] MEDS ORDERED: Polyethylene Glycol 3350 Powder 17 GM Packet PO PRN (23:18)
--- NOTE | 2017-03-21 23:22 | PCM.HP ---
H&P History of Present Illness - General Date of Service: 03/21/17 Admit Problem/Dx: Admission Diagnosis/Problem Admission Diagnosis/Problem Chest discomfort Source of Information: Patient, Old Records, Provider, RN, RN Notes Reviewed History Limitations: Reports: No Limitations - History of Present Illness Initial Comments - Free Text/Narative: Qi Ellis is an 76 yo male who presents to our ED today (03/21/17) with chest discomfort that started last evening and has continued today. It is reported as brief episodes of discomfort that travel across the chest. It is described as a pressure, or discomfort, but not a pain. He initially felt across his chest on 03/19/17 that increased gradually and persisted all day, but disappeared on 03/20/17 when he awoke. It returned around noon today and is present on arrival. Reports mild shortness of breath with exertion, but no dyspnea at rest. No coughing, abdominal pain, nausea, vomiting, dizziness. He reports no discomfort in his back or left shoulder or arm during these episodes. He does have a history of HTN and CAD. Vital signs in the ED temperature 36.6 Celsius. Pulse 73. Respiration 18. BP 160/73. Oxygenation 100%. 12-lead EKG is obtained and interpreted by ER provider as a sinus arrhythmia or a normal sinus rhythm with frequent PACs. Labs are obtained: White blood cell count 8.09. Hemoglobin low at 12.9, hematocrit low at 39.4. He is normocytic. Platelets 179,000. Neutrophils are slightly elevated at 69.9 PT is 10.6. INR 0.97. APTT 28. D-dimer is negative at 0.20. Sodium normal at 143. Potassium normal at 4.0. Chloride high at 0.9. Carbon dioxide normal at 22. Anion gap slightly elevated at 16. BUN elevated at 30. Creatinine 1.7. EGFR 39. Close 126. Calcium low at 8. Magnesium normal at 2.1. Bilirubin 0.3. AST 15, ALT slightly low at 15, alk phosphatase elevated at 132. Troponin negative at less than 0.017. ProBNP normal at 203. Protein low at 4.6. Albumin low at 3.3. Chest x-ray was obtained with no acute changes. He reportedly underwent a chemical stress test 2 years ago. There is concern this pain may be cardiac related. It is recommended a stress test be repeated tomorrow. He carries a history of colon glaucoma, hypertension, recurrent bronchitis, COPD , chronic heartburn, chronic renal insufficiency with a right nephrectomy, arthritis, depression, metastatic colon liver and renal cancer, and psoriasis. Reports having had multiple chemotherapy treatments in the past however 9 months ago he stopped treatment. He does have a Port-A-Cath in his left chest. He is a former smoker. He subsequently admitted to the medical floor on observation. CODE STATUS: DNR/ DNI. His PCP is Dr. Caldera at [facility] in [place]. Chest Pain Score (Numeric/FACES): 0 - Related Data Allergies/Adverse Reactions: Allergies Allergy/AdvReac Type Severity Reaction Status Date / Time azithromycin Allergy Anaphylactic Verified 03/21/17 23:01 Shock gatifloxacin [From Tequin] Allergy Anaphylactic Verified 03/21/17 23:01 Shock lansoprazole [From Prevacid] Allergy Anaphylactic Verified 03/21/17 23:01 Shock Penicillins Allergy Anaphylactic Verified 03/21/17 23:01 Shock Sulfa (Sulfonamide Allergy Rash Verified 03/21/17 23:01 Antibiotics) Home Medications: Home Meds Metoprolol Succinate [Toprol XL 50mg] 50 mg PO DAILY 12/15/14 [History] Albuterol [Proventil HFA] 2 puff INH Q6H PRN 11/13/15 [History] Multivitamin [Multivitamins] 1 tab PO DAILY 11/13/15 [History] Omeprazole Magnesium [Prilosec Otc] 20 mg PO DAILY 11/13/15 [History] Ondansetron HCl [Zofran] 8 mg PO Q4H PRN 11/13/15 [History] Sennosides/Docusate Sodium [Senna-Docusate Sodium] 1 tab PO DAILY 06/05/16 [ History] Furosemide [Lasix] 20 mg PO DAILY #30 tablet 06/08/16 [Rx] Aspirin 325 mg PO DAILY 08/01/16 [History] Allopurinol [Zyloprim] 50 mg PO DAILY 03/21/17 [History] Past Medical History HEENT History: Reports: Glaucoma, Impaired Vision, Macular Degeneration, Sinusitis Other HEENT History: wears eyeglasses, has upper and lower dentures Cardiovascular History: Reports: Hypertension Respiratory History: Reports: Asthma, Other (See Below) Other Respiratory History: stress asthma Gastrointestinal History: Reports: GERD Other Gastrointestinal History: states has alot of heartburn since being on chemo. Genitourinary History: Reports: Chronic Renal Insuffiency, Other (See Below) Other Genitourinary History: only 1 kidney (left) Musculoskeletal History: Reports: Arthritis Neurological History: Reports: Other (See Below) Other Neuro History: ?TIAs many years ago Psychiatric History: Reports: None Oncologic (Cancer) History: Reports: Colon, Liver, Metastatic, Renal Other Oncologic History: off of chemo for the past 9 months (last chemo was in May 2016); melanoma behind ear Dermatologic History: Reports: Psoriasis - Infectious Disease History Infectious Disease History: Reports: Measles, Mumps - Past Surgical History HEENT Surgical History: Reports: Cataract Surgery Cardiovascular Surgical History: Reports: None Respiratory Surgical History: Reports: None GI Surgical History: Reports: Appendectomy, Cholecystectomy, Colonoscopy, Esophageal Dilatation, Other (See Below) Other GI Surgeries/Procedures: part of large intestines removed Male Surgical History: Reports: Other (See Below) Other Male Surgeries/Procedures: right kidney removed Neurological Surgical History: Reports: None Musculoskeletal Surgical History: Reports: None Oncologic Surgical History: Reports: None Dermatological Surgical History: Reports: None Social & Family History - Family History Family Medical History: Noncontributory Other Oncologic Family History: aunt had brain cancer - Tobacco Use Smoking Status *Q: Former Smoker Years of Tobacco use: 40 Packs/Tins Daily: 1 Used Tobacco, but Quit: Yes Month Tobacco Last Used: 1999 Second Hand Smoke Exposure: No - Caffeine Use Caffeine Use: Reports: Soda Other Caffeine Use: occasional soda - Recreational Drug Use Recreational Drug Use: No Recreational Drug Use Frequency: Rarely - Living Situation & Occupation Living situation: Reports: , with Spouse Occupation: Retired H&P Review of Systems - Review of Systems: Review Of Systems: See Below General: Reports: No Symptoms. Denies: Fever, Chills, Malaise, Weakness, Fatigue, Night Sweats HEENT: Reports: No Symptoms. Denies: Ear Pain, Eye Pain, Headaches, Hearing Changes, Rhinitis, Post Nasal Drip, Sore Throat, Vertigo Pulmonary: Reports: No Symptoms. Denies: Shortness of Breath, Wheezing, Pleuritic Chest Pain, Cough, Sputum Cardiovascular: Reports: Palpitations (Earlier), Other (Chest pressure which has resolved now). Denies: Dyspnea on Exertion, PND, Edema, Lightheadedness, Syncope Gastrointestinal: Reports: No Symptoms. Denies: Abdominal Pain, Constipation, Diarrhea, Decreased Appetite, Nausea, Vomiting Genitourinary: Reports: No Symptoms. Denies: Dysuria, Frequency, Burning, Pain , Urgency Musculoskeletal: Reports: No Symptoms. Denies: Neck Pain, Shoulder Pain, Arm Pain, Back Pain, Hand Pain, Leg Pain, Foot Pain, Joint Pain, Joint Swelling, Muscle Pain, Muscle Stiffness Skin: Reports: No Symptoms. Denies: Cyanosis, Jaundice, Mottled, Pallor, Diaphoresis Psychiatric: Reports: No Symptoms. Denies: Confusion, Depression, Mood Lability , Anxiety Neurological: Reports: No Symptoms. Denies: Confusion, Dizziness, Headache, Numbness, Paresthesia, Seizure, Tingling, Tremors, Weakness Hematologic/Lymphatic: Reports: No Symptoms Immunologic: Reports: No Symptoms Review of Systems Comment:: Patient reports all symptoms have resolved now. Exam - Exam Exam: See Below - Vital Signs Vital Signs: Last Vital Signs Temp 97.8 F 03/21/17 18:24 Pulse 73 03/21/17 18:24 Resp 18 03/21/17 18:24 BP 160/73 H 03/21/17 18:24 Pulse Ox 100 03/21/17 18:24 Weight: 203 lb - Exam Quality Assessment: DVT Prophylaxis General: Alert, Oriented, Cooperative HEENT: Conjunctiva Clear, EACs Clear, EOMI, Hearing Intact, Mucosa Moist & [place] , Nares Patent, Normal Nasal Septum, Posterior Pharynx Clear, PERRLA Neck: Supple, Trachea Midline. No: JVD Lungs: Clear to Auscultation, Normal Respiratory Effort Cardiovascular: Regular Rate, Regular Rhythm GI/Abdominal Exam: Normal Bowel Sounds, Soft, Non-Tender, No Organomegaly, No Distention, No Abnormal Bruit, No Mass, Pelvis Stable (Male) Exam: Deferred Rectal (Males) Exam: Deferred Back Exam: Normal Inspection, Full Range of Motion Extremities: Normal Inspection, Normal Range of Motion, Non-Tender, No Pedal Edema, Normal Capillary Refill Peripheral Pulses: 2+: Radial (L), Radial (R), Posterior Tibial (L), Posterior Tibial (R), Dorsalis Pedis (L), Dorsalis Pedis (R) Skin: Warm, Dry, Intact Neurological: Cranial Nerves Intact (Grossly) Neuro Extensive - Mental Status: Alert, Oriented x3, Normal Mood/Affect, Normal Cognition, Memory Intact Neuro Extensive - Motor, Sensory, Reflexes: CN II-XII Intact (Grossly), Normal Gait Psychiatric: Alert, Normal Affect, Normal Mood - Patient Data Result Diagrams: 03/21/17 18:47 03/21/17 18:47 *Q Meaningful Use (ADM) - VTE *Q VTE Criteria *Q: - Stroke *Q Stroke Criteria *Q: - AMI *Q AMI Criteria *Q: - Problem List (1) Chest discomfort SNOMED Code(s): 730249634 ICD Code: R07.89 - OTHER CHEST PAIN Status: Acute Priority: High Current Visit: Yes (2) 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 SNOMED Code(s): 05933456 ICD Code: C18.9 - MALIGNANT NEOPLASM OF COLON, UNSPECIFIED; C78.7 - SECONDARY MALIG NEOPLASM OF LIVER AND INTRAHEPATIC BILE DUCT Status: Chronic Priority: High Current Visit: Yes (3) History of nephrectomy SNOMED Code(s): 92357894583919 ICD Code: Z90.5 - ACQUIRED ABSENCE OF KIDNEY Status: Chronic Priority: Low Current Visit: Yes (4) CKD (chronic kidney disease) stage 3, GFR 30-59 ml/min SNOMED Code(s): 670820356 ICD Code: N18.3 - CHRONIC KIDNEY DISEASE, STAGE 3 (MODERATE) Status: Chronic Priority: Low Current Visit: Yes Problem List Initiated/Reviewed/Updated: Yes Orders Last 24hrs: Active Orders 24 hr Category Date Time Status Admission Status [Patient Status] [ADT] Routine ADT 03/21/17 22:09 Active Medication Orders Sodium Chloride (Saline Flush) 10 ml FLUSH ASDIRECTED PRN PRN Reason: Keep Vein Open Last Admin: 03/21/17 18:55 Dose: 10 ml Assessment/Plan Comment:: I/P: Acute Chest discomfort/Pressure, Resolved - R/O ACS -Chest pressure across chest from 03/19/17 to morning of 03/20/17 -Returned today at noon and persisted until in ED -Hx/o CAD, HTN, metastatic colon cancer -Underwent chemo however discontinued treatment -Former smoker -PT 10.6 -INR 0.97 -APTT 28 -D-dimer 0.20 -Troponin negative (<0.017) -Pro-BNP 203 -12 lead in ED shows sinus arrhythmia or NSR with frequent PACs -Pressure/discomfort resolved when seen on floor -Stress test preformed 05/03 - RBBB and indeterminate electrical portion, EF 65% with no acute changes on Cardiolite portion. -Last known echo 3 years ago in [place] -ASA as ordered -Morphine/nitro PRN -Stress test ordered for AM -Repeat troponin -CK-MB ordered -Lipid panel ordered -Repeat 12-lead ordered Chronic: HTN Glaucoma COPD Recurrent bronchitis GERD CKD Stage III Nephrectomy Arthiritis Depression Metastatic colon cancer Psoriasis Plan: CM/SW for discharge planning Consult pulmonary rehab Consult spiritual care DVT/PE prophylaxis Other orders as indicated above Home medications as indicated Routine AM labs Code Status: DNR/DNI. His PCP is Dr. Caldera.
[2017-03-21] MEDS ORDERED: Ondansetron 4 MG Tab.DIS PO PRN (23:26)
[2017-03-21] MEDS ORDERED: Albuterol 6.7 GM Inhaler INH PRN (23:26)
[2017-03-22] MEDS ORDERED: Sodium Chloride 0.9% 10 ML Syringe FLUSH SCH (07:45)
[2017-03-22] MEDS ORDERED: Scopolamine 1.5 MG Transdermal Patch TRDERM PRN (08:23)
--- NOTE | 2017-03-22 08:36 | CR ---
Chest: Portable view of the chest was obtained. Comparison: Prior chest x-ray of 11/03/16. Nodule is identified within the left mid lung. This nodule appears stable from previous exam. Lungs are clear with no acute infiltrates. Infusion port is seen entering from the left side. Heart size is normal. Mild tortuosity of the thoracic aorta is seen. Degenerative change is noted within the right shoulder. Impression: 1. Incidental findings. Nothing acute is appreciated on portable chest x-ray. Diagnostic code #2
[2017-03-22] MEDS ORDERED: Multivitamins,Therapeutic Tab PO SCH (09:00)
[2017-03-22] MEDS ORDERED: Allopurinol 100 MG Tab PO SCH (09:00)
[2017-03-22] MEDS ORDERED: Furosemide 20 MG Tab PO SCH (09:00)
[2017-03-22] MEDS ORDERED: Omeprazole Magnesium [Prilosec Otc] 20 MG PO SCH (09:00)
[2017-03-22] MEDS ORDERED: ASPIRIN 325 MG PO SCH (09:00)
[2017-03-22] MEDS ORDERED: Aspirin 81 MG Tab.Chew PO SCH (09:00)
[2017-03-22 11:54] VITALS: BP 142/74
--- NOTE | 2017-03-22 13:16 | NM ---
Cardiolite cardiac exam Technique: I have data stating the patient was stressed utilizing Lexiscan protocol. Stress dose of technetium 99m Cardiolite was 10.9 mCi. Rest dose was 31.1 mCi. SPECT imaging was obtained in 3 planes for both portions of the study. Study was also gated. Low-dose chest CT performed to allow for attenuation correction. Findings: Inferior wall defect seen on the non-attenuation exam which disappears on the attenuation corrected images compatible with diaphragmatic attenuation. Activity is homogeneous between rest and stress study. Ejection fraction is normal at 61%. Wall thickening and wall motion is normal. Impression: 1. Inferior wall defect caused by diaphragmatic attenuation. 2. Nothing is seen to indicate reversible ischemia. Normal ejection fraction is identified. Diagnostic code #2
--- NOTE | 2017-03-22 15:30 | PCM.DCSUM1 ---
<Kameron Ward - Last Filed: 03/22/17 15:30> Discharge Summary - Hospital Course Free Text/Narrative:: Qi Ellis is an 76 yo male who presents to our ED today (03/21/17) with chest discomfort that started last evening and has continued today. It is reported as brief episodes of discomfort that travel across the chest. It is described as a pressure, or discomfort, but not a pain. He initially felt across his chest on 03/19/17 that increased gradually and persisted all day, but disappeared on 03/20/17 when he awoke. It returned around noon today and is present on arrival. Reports mild shortness of breath with exertion, but no dyspnea at rest. No coughing, abdominal pain, nausea, vomiting, dizziness. He reports no discomfort in his back or left shoulder or arm during these episodes. He does have a history of HTN and CAD. Vital signs in the ED temperature 36.6 Celsius. Pulse 73. Respiration 18. BP 160/73. Oxygenation 100%. 12-lead EKG is obtained and interpreted by ER provider as a sinus arrhythmia or a normal sinus rhythm with frequent PACs. Labs are obtained: White blood cell count 8.09. Hemoglobin low at 12.9, hematocrit low at 39.4. He is normocytic. Platelets 179,000. Neutrophils are slightly elevated at 69.9 PT is 10.6. INR 0.97. APTT 28. D-dimer is negative at 0.20. Sodium normal at 143. Potassium normal at 4.0. Chloride high at 0.9. Carbon dioxide normal at 22. Anion gap slightly elevated at 16. BUN elevated at 30. Creatinine 1.7. EGFR 39. Close 126. Calcium low at 8. Magnesium normal at 2.1. Bilirubin 0.3. AST 15, ALT slightly low at 15, alk phosphatase elevated at 132. Troponin negative at less than 0.017. ProBNP normal at 203. Protein low at 4.6. Albumin low at 3.3. Chest x-ray was obtained with no acute changes. He reportedly underwent a chemical stress test 2 years ago. There is concern this pain may be cardiac related. It is recommended a stress test be repeated tomorrow. He carries a history of colon glaucoma, hypertension, recurrent bronchitis, COPD , chronic heartburn, chronic renal insufficiency with a right nephrectomy, arthritis, depression, metastatic colon liver and renal cancer, and psoriasis. Reports having had multiple chemotherapy treatments in the past however 9 months ago he stopped treatment. He does have a Port-A-Cath in his left chest. He is a former smoker. He subsequently admitted to the medical floor on observation. CODE STATUS: DNR/ DNI. His PCP is Dr. Caldera at [facility] in [place]. While in our care the patient did not have any episodes of chest pain or shortness of breath. Troponin and repeat troponin were both negative. CK-MB and repeat CK-MB were negative. Lipids were good. Twelve-lead EKGs were obtained and were negative for acute findings. Cardiolite exam interpreted by Dr. Chaudhry revealed: 1 inferior wall defect cause by diaphragmatic attenuation. 2. Nothing seen indicated reversible ischemia. Normal ejection fraction is identified. Ejection fraction was found to be 61%. Dr. Hopkins performed electrical portion of exam and reports no concerns. He will be discharged home. He is to follow-up with his primary care provider in 7-10 days. He reports having had multiple Holter monitors in the past. This may be worth exploring outpatient with his primary care provider. 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 SNOMED Code(s): 20002794 ICD Code: C18.9 - MALIGNANT NEOPLASM OF COLON, UNSPECIFIED; C78.7 - SECONDARY MALIG NEOPLASM OF LIVER AND INTRAHEPATIC BILE DUCT Status: Chronic Priority: High (3) History of nephrectomy SNOMED Code(s): 47037537676802 ICD Code: Z90.5 - ACQUIRED ABSENCE OF KIDNEY Status: Chronic Priority: Low (4) CKD (chronic kidney disease) stage 3, GFR 30-59 ml/min SNOMED Code(s): 943280952 ICD Code: N18.3 - CHRONIC KIDNEY DISEASE, STAGE 3 (MODERATE) Status: Chronic Priority: Low - Patient Summary/Data Consults: Consultations 03/21/17 23:18 Consult to Case Management [CONS] Routine Consult to Paper Bag Inspector [CONS] Routine Consult to Spiritual Care [CONS] Routine - Patient Instructions Diet: Heart Healthy Diet Activity: As Tolerated Driving: Do Not Drive (today ) Showering/Bathing: May Shower Notify Provider of: Fever, Increased Pain, Nausea and/or Vomiting (chest pain, increasing shortness of breath ) - Discharge Plan Home Medications: Home Meds Metoprolol Succinate [Toprol XL 50mg] 50 mg PO DAILY 12/15/14 [History] Albuterol [Proventil HFA] 2 puff INH Q6H PRN 11/13/15 [History] Multivitamin [Multivitamins] 1 tab PO DAILY 11/13/15 [History] Omeprazole Magnesium [Prilosec Otc] 20 mg PO DAILY 11/13/15 [History] Ondansetron HCl [Zofran] 8 mg PO Q4H PRN 11/13/15 [History] Sennosides/Docusate Sodium [Senna-Docusate Sodium] 1 tab PO DAILY 06/05/16 [ History] Furosemide [Lasix] 20 mg PO DAILY #30 tablet 06/08/16 [Rx] Aspirin 325 mg PO DAILY 08/01/16 [History] Allopurinol [Zyloprim] 50 mg PO DAILY 03/21/17 [History] Patient Handouts: Metoprolol extended-release tablets, Pharmacologic Stress Echocardiogram, [id number]-Cadr, Hypertension, Djvk-id-[id number], Chronic Kidney Disease , Tioq-se-Gmns, Aspirin, ASA oral tablets, Managing Your High Blood Pressure, Implanted Port Home Guide Referrals: Brendan Caldera MD [Primary Care Provider] - 03/29/17 10:10 am (Please follow up with Dr. Caldera on SaturdayMarch 29 at 10:10am) - Discharge Summary/Plan Comment DC Time >30 min.: Yes (45 minutes ) - General Info Date of Service: 03/22/17 Admission Dx/Problem (Free Text: Admission Diagnosis/Problem Admission Diagnosis/Problem Chest discomfort Functional Status: Reports: Pain Controlled, Tolerating Diet, Ambulating, Urinating. Denies: New Symptoms - Review of Systems General: Reports: No Symptoms HEENT: Reports: No Symptoms Pulmonary: Reports: No Symptoms Cardiovascular: Reports: No Symptoms Gastrointestinal: Reports: No Symptoms Genitourinary: Reports: No Symptoms Musculoskeletal: Reports: No Symptoms Skin: Reports: No Symptoms Neurological: Reports: No Symptoms Psychiatric: Reports: No Symptoms Systems Review Comment: Patient has absolutely no complaint at this time. - Patient Data Vitals - Most Recent: Last Vital Signs Temp 98.6 F 03/22/17 11:52 Pulse 61 03/22/17 09:41 Resp 16 03/22/17 11:52 BP 142/74 H 03/22/17 11:52 Pulse Ox 100 03/22/17 11:52 Weight - Most Recent: 90.083 kg I&O - Last 24 hours: Intake & Output 03/22/17 03/22/17 03/22/17 06:59 14:59 22:59 Intake Total 150 Output Total 550 Balance -400 Lab Results - Last 24 hrs: Laboratory Results - last 24 hr 03/22/17 03/22/17 03/22/17 Range/Units 05:57 05:57 13:30 WBC 6.52 (4.23-9.07) K/mm3 RBC 4.57 L (4.63-6.08) M/mm3 Hgb 12.3 L (13.7-17.5) gm/L Hct 38.9 L (40.1-51.0) % MCV 85.1 (79.0-92.2) fl MCH 26.9 (25.7-32.2) pg MCHC 31.6 L (32.2-35.5) g/dl RDW Std Deviation 44.5 H (35.1-43.9) fL Plt Count 158 L (163-337) K/mm3 MPV 11.6 (9.4-12.3) fl Neut % (Auto) 59.8 (34.0-67.9) % Lymph % (Auto) 24.2 (21.8-53.1) % [place] % (Auto) 10.1 (5.3-12.2) % Eos % (Auto) 5.1 (0.8-7.0) Baso % (Auto) 0.5 (0.1-1.2) % Neut # (Auto) 3.90 (1.78-5.38) K/mm3 Lymph # (Auto) 1.58 (1.32-3.57) K/mm3 [place] # (Auto) 0.66 (0.30-0.82) K/mm3 Eos # (Auto) 0.33 (0.04-0.54) K/mm3 Baso # (Auto) 0.03 (0.01-0.08) K/mm3 Sodium 145 (136-145) mEq/L Potassium 4.0 (3.5-5.1) mEq/L Chloride 111 H (98-107) mEq/L Carbon Dioxide 24 (21-32) mEq/L Anion Gap 14.0 (5-15) BUN 27 H (7-18) mg/dL Creatinine 1.4 H (0.7-1.3) mg/dL Est Cr Clr Drug Dosing 42.75 mL/min Estimated GFR (MDRD) 49 (>60) mL/min BUN/Creatinine Ratio 19.3 H (14-18) Glucose 81 L (83-115) mg/dL Calcium 8.2 L (8.5-10.1) mg/dL Magnesium 2.3 (1.8-2.4) mg/dl CK-MB (CK-2) 0.9 1.1 (0-3.6) ng/ml Troponin I < 0.017 < 0.017 (0.00-0.056) ng/mL Triglycerides 121 (<150) mg/dL Cholesterol 127 (<200) mg/dL LDL Cholesterol Direct 74 (<100) mg/dL HDL Cholesterol 40.0 (40-59) mg/dL Med Orders - Current: Current Medications Acetaminophen (Tylenol) 650 mg PO Q4H PRN PRN Reason: Pain (Mild 1-3)/fever Hydrocodone Bitart/Acetaminophen ([place] 325-5 Mg) 1 tab PO Q4H PRN PRN Reason: Pain (moderate 4-6) Albuterol (Proventil Hfa) 0 gm INH Q6H PRN PRN Reason: Shortness of Breath Albuterol/Ipratropium (Duoneb 3.0-0.5 Mg/3 Ml) 3 ml NEB Q4H PRN PRN Reason: Shortness Of Breath/wheezing Allopurinol (Zyloprim) 50 mg PO DAILY [facility] Last Admin: 03/22/17 10:28 Dose: Not Given Aspirin (Aspirin) 81 mg PO DAILY [facility] Last Admin: 03/22/17 10:28 Dose: Not Given Bisacodyl (Dulcolax) 5 mg PO DAILY PRN PRN Reason: Constipation Docusate Sodium (Colace) 100 mg PO BID PRN PRN Reason: Constipation Furosemide (Lasix) 20 mg PO DAILY [facility] Last Admin: 03/22/17 10:28 Dose: Not Given Promethazine HCl 12.5 mg/ (Sodium Chloride) 50.5 mls @ 100 mls/hr IV Q6H PRN PRN Reason: Nausea/Vomiting Lorazepam (Ativan) 1 mg IV Q6H PRN PRN Reason: Anxiety Morphine Sulfate (Morphine) 1 mg IVPUSH Q4H PRN PRN Reason: Other Stop: 03/24/17 23:18 Multivitamins (Thera) 1 each PO DAILY [facility] Last Admin: 03/22/17 10:28 Dose: Not Given Nitroglycerin (Nitrostat) 0.4 mg SL Q5M PRN PRN Reason: Chest Pain Stop: 03/22/17 23:20 Ondansetron HCl (Zofran) 4 mg IV Q6H PRN PRN Reason: Nausea/Vomiting Ondansetron HCl (Zofran Odt) 8 mg PO Q4H PRN PRN Reason: Nausea Omeprazole Magnesium [Prilosec Otc] 20 Mg 0 each PO DAILY [facility] Last Admin: 03/22/17 10:28 Dose: Not Given Polyethylene Glycol (Miralax) 17 gm PO DAILY PRN PRN Reason: Constipation Scopolamine (Transderm-Scop) 1.5 mg TRDERM Q72H PRN PRN Reason: Nausea/Vomiting Senna/Docusate Sodium (Senna Plus) 1 tab PO BID PRN PRN Reason: Constipation Senna/Docusate Sodium (Senna Plus) 1 - 2 tab PO DAILY [facility] Last Admin: 03/22/17 10:28 Dose: Not Given Sodium Chloride (Saline Flush) 10 ml FLUSH ASDIRECTED PRN PRN Reason: Keep Vein Open Last Admin: 03/21/17 18:55 Dose: 10 ml Temazepam (Restoril) 15 mg PO BEDTIME PRN PRN Reason: Sleep Discontinued Medications Heparin Sodium (Porcine) (Heparin Lock Flush 100 Units/Ml) 500 units FLUSH ASDIRECTED ONE Stop: 03/22/17 14:31 Non-Formulary Medication (Aspirin) 325 mg PO DAILY [facility] Last Admin: 03/22/17 10:29 Dose: Not Given Regadenoson (Lexiscan) 0.4 mg IVPUSH ONETIME ONE Stop: 03/22/17 07:33 Last Admin: 03/22/17 08:17 Dose: 0.4 mg Sodium Chloride (Saline Flush) 10 ml FLUSH ONETIME [facility] Stop: 03/22/17 10:00 Last Admin: 03/22/17 08:23 Dose: 10 ml - Exam Quality Assessment: Reports: Supplemental Oxygen, DVT Prophylaxis General: Reports: Alert, Oriented, Cooperative HEENT: Reports: Pupils Equal, Pupils Reactive, EOMI, Mucous Membr. Moist/[place] Neck: Reports: Supple, Trachea Midline. Denies: No JVD Lungs: Reports: Clear to Auscultation, Normal Respiratory Effort Cardiovascular: Reports: Regular Rate, Regular Rhythm GI/Abdominal Exam: Normal Bowel Sounds, Soft, Non-Tender, No Distention, No Abnormal Bruit, No Mass, Pelvis Stable (Male) Exam: Deferred Rectal (Males) Exam: Deferred Back Exam: Reports: Normal Inspection, Full Range of Motion Extremities: Normal Inspection, Normal Range of Motion, Non-Tender, No Pedal Edema, Normal Capillary Refill Skin: Reports: Warm, Dry, Intact Neurological: Reports: No New Focal Deficit Psy/Mental Status: Reports: Alert, Normal Affect, Normal Mood *Q Meaningful Use (DIS) - VTE *Q VTE Criteria *Q: - Stroke *Q Stroke Criteria *Q: - AMI *Q AMI Criteria *Q: <Berenice Martel - Last Filed: 03/24/17 13:30> Discharge Summary - Hospital Course Free Text/Narrative:: Agree with summary as provided - Patient Summary/Data Consults: Consultations 03/21/17 23:18 Consult to Case Management [CONS] Routine Consult to Paper Bag Inspector [CONS] Routine Consult to Spiritual Care [CONS] Routine - Patient Data Vitals - Most Recent: Last Vital Signs Temp 37.0 C 03/22/17 11:52 Pulse 61 03/22/17 09:41 Resp 16 03/22/17 11:52 BP 142/74 H 03/22/17 11:52 Pulse Ox 100 03/22/17 11:52 Med Orders - Current: Current Medications Discontinued Medications Acetaminophen (Tylenol) 650 mg PO Q4H PRN PRN Reason: Pain (Mild 1-3)/fever Hydrocodone Bitart/Acetaminophen ([place] 325-5 Mg) 1 tab PO Q4H PRN PRN Reason: Pain (moderate 4-6) Albuterol (Proventil Hfa) 0 gm INH Q6H PRN PRN Reason: Shortness of Breath Albuterol/Ipratropium (Duoneb 3.0-0.5 Mg/3 Ml) 3 ml NEB Q4H PRN PRN Reason: Shortness Of Breath/wheezing Allopurinol (Zyloprim) 50 mg PO DAILY [facility] Last Admin: 03/22/17 10:28 Dose: Not Given Aspirin (Aspirin) 81 mg PO DAILY [facility] Last Admin: 03/22/17 10:28 Dose: Not Given Bisacodyl (Dulcolax) 5 mg PO DAILY PRN PRN Reason: Constipation Docusate Sodium (Colace) 100 mg PO BID PRN PRN Reason: Constipation Furosemide (Lasix) 20 mg PO DAILY [facility] Last Admin: 03/22/17 10:28 Dose: Not Given Heparin Sodium (Porcine) (Heparin Lock Flush 100 Units/Ml) 500 units FLUSH ASDIRECTED ONE Stop: 03/22/17 14:31 Last Admin: 03/22/17 15:48 Dose: 500 units Promethazine HCl 12.5 mg/ (Sodium Chloride) 50.5 mls @ 100 mls/hr IV Q6H PRN PRN Reason: Nausea/Vomiting Lorazepam (Ativan) 1 mg IV Q6H PRN PRN Reason: Anxiety Morphine Sulfate (Morphine) 1 mg IVPUSH Q4H PRN PRN Reason: Other Stop: 03/24/17 23:18 Multivitamins (Thera) 1 each PO DAILY [facility] Last Admin: 03/22/17 10:28 Dose: Not Given Nitroglycerin (Nitrostat) 0.4 mg SL Q5M PRN PRN Reason: Chest Pain Stop: 03/22/17 23:20 Non-Formulary Medication (Aspirin) 325 mg PO DAILY [facility] Last Admin: 03/22/17 10:29 Dose: Not Given Ondansetron HCl (Zofran) 4 mg IV Q6H PRN PRN Reason: Nausea/Vomiting Ondansetron HCl (Zofran Odt) 8 mg PO Q4H PRN PRN Reason: Nausea Omeprazole Magnesium [Prilosec Otc] 20 Mg 0 each PO DAILY [facility] Last Admin: 03/22/17 10:28 Dose: Not Given Polyethylene Glycol (Miralax) 17 gm PO DAILY PRN PRN Reason: Constipation Regadenoson (Lexiscan) 0.4 mg IVPUSH ONETIME ONE Stop: 03/22/17 07:33 Last Admin: 03/22/17 08:17 Dose: 0.4 mg Scopolamine (Transderm-Scop) 1.5 mg TRDERM Q72H PRN PRN Reason: Nausea/Vomiting Senna/Docusate Sodium (Senna Plus) 1 tab PO BID PRN PRN Reason: Constipation Senna/Docusate Sodium (Senna Plus) 1 - 2 tab PO DAILY [facility] Last Admin: 03/22/17 10:28 Dose: Not Given Sodium Chloride (Saline Flush) 10 ml FLUSH ASDIRECTED PRN PRN Reason: Keep Vein Open Last Admin: 03/21/17 18:55 Dose: 10 ml Sodium Chloride (Saline Flush) 10 ml FLUSH ONETIME [facility] Stop: 03/22/17 10:00 Last Admin: 03/22/17 08:23 Dose: 10 ml Temazepam (Restoril) 15 mg PO BEDTIME PRN PRN Reason: Sleep *Q Meaningful Use (DIS) - VTE *Q VTE Criteria *Q: - Stroke *Q Stroke Criteria *Q: - AMI *Q AMI Criteria *Q:
--- NOTE | 2017-03-25 06:55 | STRESS ---
REQUESTING PHYSICIAN: Kath Hopkins MD DATE: 03/22/2017 REQUESTING PROVIDER: Kath Hopkins MD. TEST: Lexiscan nuclear myocardial perfusion scan. INDICATION: Chest pain. TYPE OF TEST: Lexiscan. Unable to walk on a treadmill. INTERPRETATION: Resting heart rate of 54, blood pressure of 163/97. EKG shows sinus rhythm with PACs and right bundle branch block. Post Lexiscan, 0.4 mg injected intravenously by standard protocol. Peak heart rate is 91, blood pressure of 182/86. EKG remains the same. The patient did not develop any chest tightness/pressure or shortness of breath but some nausea and lightheadedness after injection of Lexiscan. SUMMARY: 1. Technically negative and nondiagnostic electrocardiogram portion of stress test with baseline right bundle branch block. 2. Nuclear scan interpretation will be done separately. MMODAL /[id number] MTDD
== END 2017-03-22 16:00 | disposition home or self-care (01) ==
LOC: JD.ED 18:16 → JD.MS 21:35
PROVIDERS: ADMIT Internal Medicine; ATTEND Internal Medicine
DX: R07.89 Other chest pain (principal); C18.9 Malignant neoplasm of colon, unspecified; C78.7 Secondary malignant neoplasm of liver and intrahepatic bile duct; J45.909 Unspecified asthma, uncomplicated; I12.9 Hypertensive chronic kidney disease with stage 1 through stage 4 chronic kidney disease, or unspecified chronic kidney disease; N18.3 Chronic kidney disease, stage 3 (moderate); H40.9 Unspecified glaucoma; J44.9 Chronic obstructive pulmonary disease, unspecified; K21.9 Gastro-esophageal reflux disease without esophagitis; M19.90 Unspecified osteoarthritis, unspecified site; F32.9 Major depressive disorder, single episode, unspecified; Z87.891 Personal history of nicotine dependence; Z92.21 Personal history of antineoplastic chemotherapy; Z79.82 Long term (current) use of aspirin; Z79.899 Other long term (current) drug therapy; Z88.0 Allergy status to penicillin; Z88.1 Allergy status to other antibiotic agents; Z88.2 Allergy status to sulfonamides; Z88.8 Allergy status to other drugs, medicaments and biological substances; Z90.5 Acquired absence of kidney; Z90.49 Acquired absence of other specified parts of digestive tract; Z98.890 Other specified postprocedural states; R06.02 Shortness of breath
CPT/HCPCS: 36415; 71010; 78452; 80048; 80053; 80061; 82553; 83735; 83880; 84484; 85025; 85379; 85610; 85730; 93005; 93017; 99285; A9500; G0378; J1642; J2785; J7050; 93010

== ENCOUNTER 2017-09-08 02:06 | Inpatient (IN) | payer MEDICARE, BC ==
[2017-09-08] MEDS ORDERED: Sodium Chloride 0.9% 1,000 ML IV SCH (02:30)
[2017-09-08] MEDS ORDERED: Ondansetron 4 MG/2 ML SDV IVPUSH ONE (02:32)
[2017-09-08] MEDS ORDERED: Famotidine 20 MG/2 ML SDV IVPUSH ONE (02:32)
--- NOTE | 2017-09-08 02:36 | EDM.PDOC ---
ED HPI GENERAL MEDICAL PROBLEM - General Chief Complaint: Gastrointestinal Problem Stated Complaint: [facility] Time Seen by Provider: 09/08/17 02:13 Source of Information: Reports: Patient History Limitations: Reports: No Limitations - History of Present Illness INITIAL COMMENTS - FREE TEXT/NARRATIVE: This is a 76-year-old male. Onset this evening around 10:30 PM with nausea and vomiting. He states that after he ate supper that's when he started getting queasy in the stomach and then he started nausea and vomiting. There's been no diarrhea. He states he has not vomited up any blood. He does have a history of colon cancer though he's been cancer free for the last 1 year and 4 months and he is due for a checkup next week. His last chemotherapy was over a year ago. He describes some abdominal cramping with the nausea and the vomiting. He denies any fever or chills he denies any cough or congestion he denies any other acute symptoms. He doesn't believe he ate anything bad today though he did have a [employer] hamburger for lunch. Patient has had a nephrectomy, cholecystectomy appendectomy and part of his colon removed. He has a history of several small bowel obstructions prior to the colon cancer being discovered and treated. Middle Abdomen Pain Score (Numeric/FACES): 5 - Related Data Allergies Allergy/AdvReac Type Severity Reaction Status Date / Time azithromycin Allergy Anaphylactic Verified 09/08/17 02:10 Shock gatifloxacin [From Tequin] Allergy Anaphylactic Verified 09/08/17 02:10 Shock lansoprazole [From Prevacid] Allergy Anaphylactic Verified 09/08/17 02:10 Shock Penicillins Allergy Anaphylactic Verified 09/08/17 02:10 Shock Sulfa (Sulfonamide Allergy Rash Verified 09/08/17 02:10 Antibiotics) Home Meds: Home Meds Albuterol [Proventil HFA] 2 puff INH Q6H PRN 11/13/15 [History] Sennosides/Docusate Sodium [Senna-Docusate Sodium] 1 tab PO DAILY 06/05/16 [ History] Furosemide [Lasix] 20 mg PO DAILY #30 tablet 06/08/16 [Rx] Aspirin 325 mg PO DAILY 08/01/16 [History] Allopurinol [Zyloprim] 50 mg PO DAILY 03/21/17 [History] Lutein/Minerals/Vit A,C & E [Ocuvite] 1 tab PO DAILY 09/08/17 [History] Metoprolol Succinate 100 mg PO DAILY 09/08/17 [History] Ranitidine HCl 150 mg PO DAILY 09/08/17 [History] Past Medical History HEENT History: Reports: Glaucoma, Impaired Vision, Sinusitis Other HEENT History: wears eyeglasses Cardiovascular History: Reports: Hypertension Respiratory History: Reports: Bronchitis, Recurrent, COPD Other Respiratory History: stress asthma Gastrointestinal History: Reports: Other (See Below) Other Gastrointestinal History: states has alot of heartburn since being on chemo. Genitourinary History: Reports: Chronic Renal Insuffiency Other Genitourinary History: Rt nephrectomy Musculoskeletal History: Reports: Arthritis Neurological History: Reports: TIA Other Neuro History: ?TIAs many years ago Psychiatric History: Reports: Depression Oncologic (Cancer) History: Reports: Colon, Liver, Metastatic, Renal Other Oncologic History: off of chemo for the past 9 months, with james cath L chest Dermatologic History: Reports: Psoriasis - Infectious Disease History Infectious Disease History: Reports: Measles, Mumps - Past Surgical History HEENT Surgical History: Reports: Cataract Surgery Cardiovascular Surgical History: Reports: Vascular Surgery GI Surgical History: Reports: Other (See Below) Other GI Surgeries/Procedures: cyst removed from liver 08/13/17 Male Surgical History: Reports: Nephrectomy Neurological Surgical History: Reports: None Musculoskeletal Surgical History: Reports: Other (See Below) Social & Family History - Family History Family Medical History: Noncontributory Other Oncologic Family History: aunt had brain cancer - Tobacco Use Smoking Status *Q: Former Smoker Years of Tobacco use: 40 Packs/Tins Daily: 1 Used Tobacco, but Quit: Yes Month/Year Tobacco Last Used: 32 Second Hand Smoke Exposure: No - Caffeine Use Caffeine Use: Reports: None Other Caffeine Use: occasional - Recreational Drug Use Recreational Drug Use: No Recreational Drug Use Frequency: Rarely - Living Situation & Occupation Living situation: Reports: , with Spouse Occupation: Retired ED ROS GENERAL - Review of Systems Review Of Systems: See Below Constitutional: Reports: Malaise. Denies: Fever, Chills HEENT: Reports: No Symptoms Respiratory: Denies: Shortness of Breath, Cough Cardiovascular: Reports: No Symptoms Endocrine: Reports: No Symptoms GI/Abdominal: Reports: Abdominal Pain, Nausea, Vomiting. Denies: Diarrhea : Reports: No Symptoms Musculoskeletal: Reports: No Symptoms Skin: Reports: No Symptoms Neurological: Reports: No Symptoms Psychiatric: Reports: No Symptoms Hematologic/Lymphatic: Reports: No Symptoms ED EXAM, GI/ABD - Physical Exam Exam: See Below Exam Limited By: No Limitations General Appearance: Alert, WD/WN, Mild Distress Eyes: Bilateral: Normal Appearance Ears: Normal External Exam, Normal Canal, Normal TMs Nose: Normal Inspection Throat/Mouth: Normal Inspection, Normal Lips, Normal Oropharynx, Normal Voice, No Airway Compromise, Other (Fairly moist mucous membranes) Head: Normocephalic Neck: Supple Respiratory/Chest: No Respiratory Distress, Lungs Clear, Normal Breath Sounds, Other (There is a port in the anterior chest) Cardiovascular: Regular Rate, Rhythm, No Murmur GI/Abdominal Exam: Soft, Other (Mild upper abdominal soreness but no masses no rebound noted) Back Exam: Full Range of Motion Extremities: Normal Inspection, Normal Range of Motion. No: Pedal Edema Neurological: Alert, Oriented Psychiatric: Normal Affect, Normal Mood Skin Exam: Warm, Dry Course - Vital Signs Last Recorded V/S: Last Vital Signs Temp 97.7 F 09/08/17 02:07 Pulse 79 09/08/17 02:07 Resp 17 09/08/17 02:07 BP 117/71 09/08/17 02:07 Pulse Ox 94 L 09/08/17 02:07 - Orders/Labs/Meds Orders: Active Orders 24 hr Category Date Time Status Admission Status [Patient Status] [ADT] Routine ADT 09/08/17 06:04 Active Abdomen 2V AP Flat Upright [CR] Stat Exams 09/08/17 02:36 Taken Abdomen Pelvis wo Cont [CT] Stat Exams 09/08/17 04:57 Taken CULTURE BLOOD [BC] Stat Lab 09/08/17 03:15 Received CULTURE BLOOD [BC] Stat Lab 09/08/17 03:22 Received Sodium Chloride 0.9% [Normal Saline] 1,000 ml Med 09/08/17 02:30 Active IV ASDIRECTED Blood Culture x2 Reflex Set [OM.PC] Stat Oth 09/08/17 03:06 Ordered Medication Orders Sodium Chloride (Normal Saline) 1,000 mls @ 1,000 mls/hr IV ASDIRECTED SHANNON Last Admin: 09/08/17 02:41 Dose: 1,000 mls/hr Labs: Laboratory Tests 09/08/17 09/08/17 09/08/17 Range/Units 02:40 02:40 03:15 WBC 14.31 H (4.23-9.07) K/mm3 RBC 5.79 (4.63-6.08) M/mm3 Hgb 15.5 (13.7-17.5) gm/L Hct 48.2 (40.1-51.0) % MCV 83.2 (79.0-92.2) fl MCH 26.8 (25.7-32.2) pg MCHC 32.2 (32.2-35.5) g/dl RDW Std Deviation 46.8 H (35.1-43.9) fL Plt Count 241 (163-337) K/mm3 MPV 11.2 (9.4-12.3) fl Neut % (Auto) 87.6 H (34.0-67.9) % Lymph % (Auto) 3.7 L (21.8-53.1) % [place] % (Auto) 7.7 (5.3-12.2) % Eos % (Auto) 0.6 L (0.8-7.0) Baso % (Auto) 0.2 (0.1-1.2) % Neut # (Auto) 12.54 H (1.78-5.38) K/mm3 Lymph # (Auto) 0.53 L (1.32-3.57) K/mm3 [place] # (Auto) 1.10 H (0.30-0.82) K/mm3 Eos # (Auto) 0.08 (0.04-0.54) K/mm3 Baso # (Auto) 0.03 (0.01-0.08) K/mm3 Manual Slide Review Abnormal smear Sodium 140 (136-145) mEq/L Potassium 3.5 (3.5-5.1) mEq/L Chloride 102 (98-107) mEq/L Carbon Dioxide 25 (21-32) mEq/L Anion Gap 16.5 H (5-15) BUN 31 H (7-18) mg/dL Creatinine 1.9 H (0.7-1.3) mg/dL Est Cr Clr Drug Dosing 31.50 mL/min Estimated GFR (MDRD) 35 (>60) mL/min BUN/Creatinine Ratio 16.3 (14-18) Glucose 180 H (83-115) mg/dL Lactic Acid 2.9 H (0.4-2.0) mmol/L Calcium 9.3 (8.5-10.1) mg/dL Total Bilirubin 0.5 (0.2-1.0) mg/dL AST 22 (15-37) U/L ALT 22 (16-63) U/L Alkaline Phosphatase 154 H (46-116) U/L Total Protein 7.3 (6.4-8.2) g/dl Albumin 3.8 (3.4-5.0) g/dl Globulin 3.5 gm/dL Albumin/Globulin Ratio 1.1 (1-2) Lipase 155 (73-393) U/L Meds: Medications Generic Name Dose Route Start Last Admin Trade Name Freq PRN Reason Stop Dose Admin Sodium Chloride 1,000 mls @ 1,000 mls/hr 09/08/17 02:30 09/08/17 02:41 Normal Saline IV 1,000 mls/hr ASDIRECTED SHANNON Administration Discontinued Medications Generic Name Dose Route Start Last Admin Trade Name Freq PRN Reason Stop Dose Admin Diatrizoate Meglum/Diatrizoate Sod 90 ml 09/08/17 05:00 09/08/17 05:25 Gastrografin 37% PO 09/08/17 05:01 90 ml ONETIME ONE Administration Famotidine 20 mg 09/08/17 02:32 09/08/17 02:43 Pepcid IVPUSH 09/08/17 02:33 20 mg ONETIME ONE Administration Hydromorphone HCl 0.5 mg 09/08/17 03:06 09/08/17 03:13 Dilaudid IVPUSH 09/08/17 03:07 0.5 mg ONETIME ONE Administration Lidocaine HCl Confirm 09/08/17 05:39 09/08/17 05:58 Xylocaine 2% Jelly Administered 09/08/17 05:40 10 ml Dose Administration 10 ml .ROUTE .STK-MED ONE Lidocaine HCl 3 ml 09/08/17 05:57 09/08/17 05:50 Xylocaine 4% Top Soln MUCMEM 09/08/17 05:58 3 ml ONETIME ONE Administration Ondansetron HCl 4 mg 09/08/17 02:32 04/22/18 02:42 Zofran IVPUSH 09/08/17 02:33 4 mg ONETIME ONE Administration - Radiology Interpretation Free Text/Narrative:: CT scan of the abdomen and pelvis shows some mildly distended loops of the small bowel in the mid abdomen but the transition zone is in the right lower quadrant suggesting a incomplete mid to distal small bowel obstruction. - Re-Assessments/Exams Free Text/Narrative Re-Assessment/Exam: 09/08/17 05:47 I spoke to the patient regarding the CT scan results and the need for an NG tube which he agrees to. I also spoke to Dr. Remy who is the surgeon monomer recovery supervisor and he agrees to follow this patient along with the hospitalist. I did speak to Dr. Martel and she agrees to admit the patient for further evaluation and treatment. The patient is willing to be put in the hospital. 09/08/17 06:59 The patient tolerated the NG tube placement and was admitted to the hospital. Departure - Departure Time of Disposition: 05:49 Disposition: Admitted As Inpatient 65 Condition: Fair Clinical Impression: Small bowel obstruction due to adhesions, Abdominal cramps Nausea and vomiting Qualifiers: Vomiting type: unspecified Vomiting Intractability: non-intractable Qualified Code(s): R11.2 - Nausea with vomiting, unspecified - Discharge Information ED Communication - ED Communication Date/Time Date: 09/08/17 Time Called: 05:50 - Discussed Case With (1) Discussed Case With (1): Admitting Provider Person/s Notified (1): Berenice Martel (She will admit the patient) - My Orders Last 24 Hours: My Active Orders 09/08/17 02:30 Sodium Chloride 0.9% [Normal Saline] 1,000 ml IV ASDIRECTED 09/08/17 02:36 Abdomen 2V AP Flat Upright [CR] Stat 09/08/17 03:06 Blood Culture x2 Reflex Set [OM.PC] Stat 09/08/17 03:15 CULTURE BLOOD [BC] Stat 09/08/17 03:22 CULTURE BLOOD [BC] Stat 09/08/17 04:57 Abdomen Pelvis wo Cont [CT] Stat 09/08/17 06:04 Admission Status [Patient Status] [ADT] Routine - Assessment/Plan Last 24 Hours: My Active Orders 09/08/17 02:30 Sodium Chloride 0.9% [Normal Saline] 1,000 ml IV ASDIRECTED 09/08/17 02:36 Abdomen 2V AP Flat Upright [CR] Stat 09/08/17 03:06 Blood Culture x2 Reflex Set [OM.PC] Stat 09/08/17 03:15 CULTURE BLOOD [BC] Stat 09/08/17 03:22 CULTURE BLOOD [BC] Stat 09/08/17 04:57 Abdomen Pelvis wo Cont [CT] Stat 09/08/17 06:04 Admission Status [Patient Status] [ADT] Routine
[2017-09-08] MEDS ORDERED: HYDROmorphone 0.5 MG/0.5 ML SYRINGE IVPUSH ONE (03:06)
[2017-09-08] MEDS ORDERED: Diatrizoate Meglumine/Diatrizoate Sodium 37% 120 ML Bottle PO ONE (05:00)
[2017-09-08] MEDS ORDERED: Lidocaine 2% Jelly 10 ML Urojet ONE (05:39)
[2017-09-08] MEDS ORDERED: Lidocaine 4% Top Soln 50 ML Bottle MUCMEM ONE (05:57)
--- NOTE | 2017-09-08 08:33 | CR ---
Chest: Frontal view of the chest was obtained. Comparison: Prior chest x-ray of 03/21/17. Left sided infusion catheter is seen which is stable. Heart size and mediastinum are stable. Lungs are clear. Nasogastric tube is seen with tip appearing slightly past the gastroesophageal junction within the proximal stomach. Tip of the nasogastric tube is within the area of the stomach fundus. Surgical clips are identified within the abdomen. Scoliosis is noted within the spine with degenerative spurring. Impression: 1. Tip of nasogastric tube is positioned slightly past the gastroesophageal junction with tip located within the stomach fundus. 2. Other incidental findings as noted above. Diagnostic code #2
--- NOTE | 2017-09-08 09:22 | PCM.HP ---
H&P History of Present Illness - General Date of Service: 09/08/17 Admit Problem/Dx: Admission Diagnosis/Problem Admission Diagnosis/Problem Small bowel obstruction Source of Information: Patient, Provider History Limitations: Reports: No Limitations - History of Present Illness Initial Comments - Free Text/Narative: 76 year old male with partial SBO, has had recurrence; PMH reportedly includes metastatic colon cancer in remission. The initial occasion was treated with conservative medical management. On this occasion, he presented after experiencing abdominal pain associated with nausea and vomiting. The pain was moderate-severe located in the periumbilical region. He denies fever, chills, symptoms, CP, SOB. he will be admitted to [facility] with telemetry. A general surgery consult has been placed. Code is DNR/DNI. Onset of Symptoms: Reports: Gradual Symptom Onset Date: 09/07/17 Duration of Symptoms: Reports: Hour(s):, Getting Worse Location: Reports: Abdomen Quality: Reports: Same as Previous Episode Severity: Moderate Improves with: Reports: Medication Worsens with: Reports: None Associated Symptoms: Reports: Loss of Appetite, Nausea/Vomiting, Weakness Middle Abdomen Pain Score (Numeric/FACES): 5 - Related Data Allergies/Adverse Reactions: Allergies Allergy/AdvReac Type Severity Reaction Status Date / Time azithromycin Allergy Anaphylactic Verified 09/08/17 09:02 Shock gatifloxacin [From Tequin] Allergy Anaphylactic Verified 09/08/17 09:02 Shock lansoprazole [From Prevacid] Allergy Anaphylactic Verified 09/08/17 09:02 Shock Penicillins Allergy Anaphylactic Verified 09/08/17 09:02 Shock Sulfa (Sulfonamide Allergy Rash Verified 09/08/17 09:02 Antibiotics) Home Medications: Home Meds Albuterol [Proventil HFA] 2 puff INH Q6H PRN 11/13/15 [History] Sennosides/Docusate Sodium [Senna-Docusate Sodium] 1 tab PO DAILY 06/05/16 [ History] Furosemide [Lasix] 20 mg PO DAILY #30 tablet 06/08/16 [Rx] Aspirin 325 mg PO DAILY 08/01/16 [History] Allopurinol [Zyloprim] 50 mg PO DAILY 03/21/17 [History] Lutein/Minerals/Vit A,C & E [Ocuvite] 1 tab PO DAILY 09/08/17 [History] Metoprolol Succinate 100 mg PO DAILY 09/08/17 [History] Ranitidine HCl 150 mg PO DAILY 09/08/17 [History] Past Medical History HEENT History: Reports: Glaucoma, Impaired Vision, Sinusitis Other HEENT History: wears eyeglasses Cardiovascular History: Reports: Hypertension Respiratory History: Reports: Bronchitis, Recurrent, COPD Other Respiratory History: stress asthma Gastrointestinal History: Reports: Other (See Below) Other Gastrointestinal History: states has alot of heartburn since being on chemo. Genitourinary History: Reports: Chronic Renal Insuffiency Other Genitourinary History: Rt nephrectomy Musculoskeletal History: Reports: Arthritis Neurological History: Reports: TIA Other Neuro History: ?TIAs many years ago Psychiatric History: Reports: Depression Oncologic (Cancer) History: Reports: Colon, Liver, Metastatic, Renal Other Oncologic History: off of chemo for the past 9 months, with james cath L chest Dermatologic History: Reports: Psoriasis - Infectious Disease History Infectious Disease History: Reports: Measles, Mumps - Past Surgical History HEENT Surgical History: Reports: Cataract Surgery Cardiovascular Surgical History: Reports: Vascular Surgery GI Surgical History: Reports: Other (See Below) Other GI Surgeries/Procedures: cyst removed from liver 08/13/17 Male Surgical History: Reports: Nephrectomy Neurological Surgical History: Reports: None Musculoskeletal Surgical History: Reports: Other (See Below) Social & Family History - Family History Family Medical History: Noncontributory Other Oncologic Family History: aunt had brain cancer - Tobacco Use Smoking Status *Q: Former Smoker Years of Tobacco use: 40 Packs/Tins Daily: 1 Used Tobacco, but Quit: Yes Month/Year Tobacco Last Used: 32 Second Hand Smoke Exposure: No - Caffeine Use Caffeine Use: Reports: None Other Caffeine Use: occasional - Recreational Drug Use Recreational Drug Use: No Recreational Drug Use Frequency: Rarely - Living Situation & Occupation Living situation: Reports: , with Spouse Occupation: Retired H[employer]P Review of Systems - Review of Systems: Review Of Systems: See Below General: Reports: Malaise, Weakness HEENT: Reports: No Symptoms Pulmonary: Reports: No Symptoms Cardiovascular: Reports: No Symptoms Gastrointestinal: Reports: Abdominal Pain, Decreased Appetite, Nausea, Vomiting Genitourinary: Reports: No Symptoms Musculoskeletal: Reports: No Symptoms Skin: Reports: No Symptoms Psychiatric: Reports: No Symptoms Neurological: Reports: No Symptoms Hematologic/Lymphatic: Reports: No Symptoms Immunologic: Reports: No Symptoms Exam - Exam Exam: See Below - Vital Signs Vital Signs: Last Vital Signs Temp 37.2 C 09/08/17 07:02 Pulse 96 09/08/17 07:02 Resp 20 09/08/17 07:02 BP 108/78 09/08/17 07:02 Pulse Ox 94 L 09/08/17 07:02 Weight: 92.986 kg - Exam Quality Assessment: DVT Prophylaxis, Other (NGT) General: Alert, Oriented, Cooperative HEENT: Conjunctiva Clear, Nares Patent, Normal Nasal Septum, Pupils Equal, Pupils Reactive, PERRLA Neck: Trachea Midline Lungs: Normal Respiratory Effort Cardiovascular: Regular Rate, Regular Rhythm GI/Abdominal Exam: Soft, Distended, Abnormal Bowel Sounds (hypo actrive) (Male) Exam: No Hernia Rectal (Males) Exam: Deferred Back Exam: Normal Inspection Extremities: Normal Inspection, Non-Tender, No Pedal Edema Skin: Warm Neurological: Cranial Nerves Intact Neuro Extensive - Mental Status: Alert, Oriented x3, Normal Mood/Affect, Normal Cognition, Memory Intact Neuro Extensive - Motor, Sensory, Reflexes: CN II-XII Intact Psychiatric: Alert, Normal Affect, Normal Mood - Patient Data Lab Results Last 24 hrs: Laboratory Results - last 24 hr 09/08/17 09/08/17 09/08/17 Range/Units 02:40 02:40 03:15 WBC 14.31 H (4.23-9.07) K/mm3 RBC 5.79 (4.63-6.08) M/mm3 Hgb 15.5 (13.7-17.5) gm/L Hct 48.2 (40.1-51.0) % MCV 83.2 (79.0-92.2) fl MCH 26.8 (25.7-32.2) pg MCHC 32.2 (32.2-35.5) g/dl RDW Std Deviation 46.8 H (35.1-43.9) fL Plt Count 241 (163-337) K/mm3 MPV 11.2 (9.4-12.3) fl Neut % (Auto) 87.6 H (34.0-67.9) % Lymph % (Auto) 3.7 L (21.8-53.1) % [place] % (Auto) 7.7 (5.3-12.2) % Eos % (Auto) 0.6 L (0.8-7.0) Baso % (Auto) 0.2 (0.1-1.2) % Neut # (Auto) 12.54 H (1.78-5.38) K/mm3 Lymph # (Auto) 0.53 L (1.32-3.57) K/mm3 [place] # (Auto) 1.10 H (0.30-0.82) K/mm3 Eos # (Auto) 0.08 (0.04-0.54) K/mm3 Baso # (Auto) 0.03 (0.01-0.08) K/mm3 Manual Slide Review Abnormal smear Sodium 140 (136-145) mEq/L Potassium 3.5 (3.5-5.1) mEq/L Chloride 102 (98-107) mEq/L Carbon Dioxide 25 (21-32) mEq/L Anion Gap 16.5 H (5-15) BUN 31 H (7-18) mg/dL Creatinine 1.9 H (0.7-1.3) mg/dL Est Cr Clr Drug Dosing 31.50 mL/min Estimated GFR (MDRD) 35 (>60) mL/min BUN/Creatinine Ratio 16.3 (14-18) Glucose 180 H (83-115) mg/dL Lactic Acid 2.9 H (0.4-2.0) mmol/L Calcium 9.3 (8.5-10.1) mg/dL Total Bilirubin 0.5 (0.2-1.0) mg/dL AST 22 (15-37) U/L ALT 22 (16-63) U/L Alkaline Phosphatase 154 H (46-116) U/L Total Protein 7.3 (6.4-8.2) g/dl Albumin 3.8 (3.4-5.0) g/dl Globulin 3.5 gm/dL Albumin/Globulin Ratio 1.1 (1-2) Lipase 155 (73-393) U/L Result Diagrams: 09/08/17 02:40 09/08/17 02:40 - Problem List (1) Abdominal cramps SNOMED Code(s): 914998336, 953790587 ICD Code: R10.9 - UNSPECIFIED ABDOMINAL PAIN Status: Acute Current Visit : Yes (2) Nausea and vomiting SNOMED Code(s): 73336804 ICD Code: R11.2 - NAUSEA WITH VOMITING, UNSPECIFIED Status: Acute Current Visit: Yes Qualifiers: Vomiting type: unspecified Vomiting Intractability: non-intractable Qualified Code(s): R11.2 - Nausea with vomiting, unspecified (3) Small bowel obstruction due to adhesions SNOMED Code(s): 575903312 ICD Code: K56.50 - INTESTNL ADHESIONS, UNSP TO PARTIAL VERSUS COMPLETE OBST Status: Acute Priority: Medium Current Visit: Yes (4) Hypertension SNOMED Code(s): 96158722 ICD Code: I10 - ESSENTIAL (PRIMARY) HYPERTENSION Status: Acute Current Visit: No Qualifiers: Hypertension type: essential hypertension Qualified Code(s): I10 - Essential (primary) hypertension (5) Partial small bowel obstruction SNOMED Code(s): 879506691 ICD Code: K56.69 - OTHER INTESTINAL OBSTRUCTION * DO NOT USE * Status: Acute Priority: High Current Visit: No (6) Renal insufficiency SNOMED Code(s): 653688464, 261930499 ICD Code: N28.9 - DISORDER OF KIDNEY AND URETER, UNSPECIFIED Status: Acute Current Visit: No (7) CKD (chronic kidney disease) stage 3, GFR 30-59 ml/min SNOMED Code(s): 819270183 ICD Code: N18.3 - CHRONIC KIDNEY DISEASE, STAGE 3 (MODERATE) Status: Chronic Priority: Low Current Visit: No (8) History of nephrectomy SNOMED Code(s): 82337098008165 ICD Code: Z90.5 - ACQUIRED ABSENCE OF KIDNEY Status: Chronic Priority: Low Current Visit: No Problem List Initiated/Reviewed/Updated: Yes Orders Last 24hrs: Active Orders 24 hr Category Date Time Status Admission Status [Patient Status] [ADT] Routine ADT 09/08/17 06:04 Active Notify Provider Consults [RC] ASDIRECTED Care 09/08/17 06:42 Active Consult to Physician [CONS] Urgent Cons 09/08/17 06:41 Active Abdomen 2V AP Flat Upright [CR] Stat Exams 09/08/17 02:36 Taken Abdomen Pelvis wo Cont [CT] Stat Exams 09/08/17 04:57 Taken Chest 1V-Tube Placement Chk NC [CR] Stat Exams 09/08/17 09:09 Ordered CULTURE BLOOD [BC] Stat Lab 09/08/17 03:15 Received CULTURE BLOOD [BC] Stat Lab 09/08/17 03:22 Received Sodium Chloride 0.9% [Normal Saline] 1,000 ml Med 09/08/17 02:30 Active IV ASDIRECTED Blood Culture x2 Reflex Set [OM.PC] Stat Oth 09/08/17 03:06 Ordered Resuscitation Status Routine Resus Stat 09/08/17 08:52 Ordered Medication Orders Sodium Chloride (Normal Saline) 1,000 mls @ 1,000 mls/hr IV ASDIRECTED SHANNON Last Admin: 09/08/17 02:41 Dose: 1,000 mls/hr Assessment/Plan Comment:: Impression: History of metastatic colon cancer, S/P right hemicolectomy; history of partial small bowel obstruction which resolved conservatively Acute partial SBO with NGT placed. Chronic HTN GERD Glaucoma COPD CKD III Hx of TIA Plan: IVF NGT as directed. Follow Physical Exam changes/NGT NPO except meds and ice chips; clamp NGT as needed. Gen Surg consult Daily Labs Replace Electrolytes Consult PT/OT/SM (as needed) DVT/GI prophylaxis
--- NOTE | 2017-09-08 09:31 | PCM.CONS ---
H&P History of Present Illness - General Date of Service: 09/08/17 Admit Problem/Dx: Admission Diagnosis/Problem Admission Diagnosis/Problem Small bowel obstruction Source of Information: Patient, Provider History Limitations: Reports: No Limitations - History of Present Illness Initial Comments - Free Text/Narative: 76-year-old male had a colonoscopy 3 years ago from which a right-sided colon cancer was found. He underwent a right hemicolectomy with primary anastomosis but this procedure was complicated by a postop anastomotic leak. After 3 days at home he presented with a rigid abdomen consistent with generalized peritonitis and was taken back to surgery where the anastomosis was taken down and he was given an ileostomy and a long Rene segment and jejunostomy feeding tube. After a lengthy hospital course on IV antibiotics he was discharged to home where he did well and ultimately was taken back to surgery a few months later and underwent an ileostomy takedown with primary anastomosis to reestablish his GI tract continuity. Since that procedure he has done very well being quite active and he is still working. He had a previous admission before this one for a partial small bowel obstruction which resolved with medical management. He did well until yesterday when he experienced severe periumbilical crampy abdominal pain associated with anorexia, nausea and emesis which ultimately caused him to present to the emergency room where he was seen by ED staff. A CT scan with contrast was performed and was remarkable for a partial mid small bowel obstruction. A nasogastric tube was placed and he was placed on IV hydration and admitted to the hospitalist service where I was asked to see him in consultation. This morning he has no abdominal pain but still feels nauseated and has had a few small episodes of emesis. His last bowel movement was yesterday which was associated with passage of flatus but he has not had any passage since. Nursing staff tells me they're having some difficulty with his nasogastric tube. Middle Abdomen Pain Score (Numeric/FACES): 5 - Related Data Allergies/Adverse Reactions: Allergies Allergy/AdvReac Type Severity Reaction Status Date / Time azithromycin Allergy Anaphylactic Verified 09/08/17 09:02 Shock gatifloxacin [From Tequin] Allergy Anaphylactic Verified 09/08/17 09:02 Shock lansoprazole [From Prevacid] Allergy Anaphylactic Verified 09/08/17 09:02 Shock Penicillins Allergy Anaphylactic Verified 09/08/17 09:02 Shock Sulfa (Sulfonamide Allergy Rash Verified 09/08/17 09:02 Antibiotics) Home Medications: Home Meds Albuterol [Proventil HFA] 2 puff INH Q6H PRN 11/13/15 [History] Sennosides/Docusate Sodium [Senna-Docusate Sodium] 1 tab PO DAILY 06/05/16 [ History] Furosemide [Lasix] 20 mg PO DAILY #30 tablet 06/08/16 [Rx] Aspirin 325 mg PO DAILY 08/01/16 [History] Allopurinol [Zyloprim] 50 mg PO DAILY 03/21/17 [History] Lutein/Minerals/Vit A,C & E [Ocuvite] 1 tab PO DAILY 09/08/17 [History] Metoprolol Succinate 100 mg PO DAILY 09/08/17 [History] Ranitidine HCl 150 mg PO DAILY 09/08/17 [History] Past Medical History HEENT History: Reports: Glaucoma, Impaired Vision, Sinusitis Other HEENT History: wears eyeglasses Cardiovascular History: Reports: Hypertension Respiratory History: Reports: Bronchitis, Recurrent, COPD Other Respiratory History: stress asthma Gastrointestinal History: Reports: Other (See Below) Other Gastrointestinal History: states has alot of heartburn since being on chemo. Genitourinary History: Reports: Chronic Renal Insuffiency Other Genitourinary History: Rt nephrectomy Musculoskeletal History: Reports: Arthritis Neurological History: Reports: TIA Other Neuro History: ?TIAs many years ago Psychiatric History: Reports: Depression Oncologic (Cancer) History: Reports: Colon, Liver, Metastatic, Renal Other Oncologic History: off of chemo for the past 9 months, with james cath L chest Dermatologic History: Reports: Psoriasis - Infectious Disease History Infectious Disease History: Reports: Measles, Mumps - Past Surgical History HEENT Surgical History: Reports: Cataract Surgery Cardiovascular Surgical History: Reports: Vascular Surgery GI Surgical History: Reports: Other (See Below) Other GI Surgeries/Procedures: cyst removed from liver 08/13/17 Male Surgical History: Reports: Nephrectomy Neurological Surgical History: Reports: None Musculoskeletal Surgical History: Reports: Other (See Below) Social & Family History - Family History Family Medical History: Noncontributory Other Oncologic Family History: aunt had brain cancer - Tobacco Use Smoking Status *Q: Former Smoker Years of Tobacco use: 40 Packs/Tins Daily: 1 Used Tobacco, but Quit: Yes Month/Year Tobacco Last Used: 32 Second Hand Smoke Exposure: No - Caffeine Use Caffeine Use: Reports: None Other Caffeine Use: occasional - Recreational Drug Use Recreational Drug Use: No Recreational Drug Use Frequency: Rarely - Living Situation & Occupation Living situation: Reports: , with Spouse Occupation: Retired H&P Review of Systems - Review of Systems: Review Of Systems: ROS reveals no pertinent complaints other than HPI. Exam - Exam Exam: See Below - Vital Signs Vital Signs: Last Vital Signs Temp 37.2 C 09/08/17 07:02 Pulse 96 09/08/17 07:02 Resp 20 09/08/17 07:02 BP 108/78 09/08/17 07:02 Pulse Ox 94 L 09/08/17 07:02 Weight: 92.986 kg - Exam General: Alert, Oriented, Cooperative, Other (No acute distress) HEENT: Conjunctiva Clear, Hearing Intact Neck: Supple, Trachea Midline Lungs: Normal Respiratory Effort Cardiovascular: Regular Rate, Regular Rhythm, Normal S1, Normal S2 GI/Abdominal Exam: Soft, Non-Tender, Distended, Other (Hypoactive bowel sounds. Scarring at the ileostomy takedown site. Midline lower abdominal incision with no hernias appreciated.) (Male) Exam: No Hernia Rectal (Males) Exam: Deferred Back Exam: Normal Inspection Extremities: Non-Tender Skin: Warm, Dry, Intact Neuro Extensive - Mental Status: Alert, Oriented x3, Normal Mood/Affect, Normal Cognition Psychiatric: Alert, Normal Affect - Patient Data Lab Results Last 24 hrs: Laboratory Results - last 24 hr 09/08/17 09/08/17 09/08/17 Range/Units 02:40 02:40 03:15 WBC 14.31 H (4.23-9.07) K/mm3 RBC 5.79 (4.63-6.08) M/mm3 Hgb 15.5 (13.7-17.5) gm/L Hct 48.2 (40.1-51.0) % MCV 83.2 (79.0-92.2) fl MCH 26.8 (25.7-32.2) pg MCHC 32.2 (32.2-35.5) g/dl RDW Std Deviation 46.8 H (35.1-43.9) fL Plt Count 241 (163-337) K/mm3 MPV 11.2 (9.4-12.3) fl Neut % (Auto) 87.6 H (34.0-67.9) % Lymph % (Auto) 3.7 L (21.8-53.1) % [place] % (Auto) 7.7 (5.3-12.2) % Eos % (Auto) 0.6 L (0.8-7.0) Baso % (Auto) 0.2 (0.1-1.2) % Neut # (Auto) 12.54 H (1.78-5.38) K/mm3 Lymph # (Auto) 0.53 L (1.32-3.57) K/mm3 [place] # (Auto) 1.10 H (0.30-0.82) K/mm3 Eos # (Auto) 0.08 (0.04-0.54) K/mm3 Baso # (Auto) 0.03 (0.01-0.08) K/mm3 Manual Slide Review Abnormal smear Sodium 140 (136-145) mEq/L Potassium 3.5 (3.5-5.1) mEq/L Chloride 102 (98-107) mEq/L Carbon Dioxide 25 (21-32) mEq/L Anion Gap 16.5 H (5-15) BUN 31 H (7-18) mg/dL Creatinine 1.9 H (0.7-1.3) mg/dL Est Cr Clr Drug Dosing 31.50 mL/min Estimated GFR (MDRD) 35 (>60) mL/min BUN/Creatinine Ratio 16.3 (14-18) Glucose 180 H (83-115) mg/dL Lactic Acid 2.9 H (0.4-2.0) mmol/L Calcium 9.3 (8.5-10.1) mg/dL Total Bilirubin 0.5 (0.2-1.0) mg/dL AST 22 (15-37) U/L ALT 22 (16-63) U/L Alkaline Phosphatase 154 H (46-116) U/L Total Protein 7.3 (6.4-8.2) g/dl Albumin 3.8 (3.4-5.0) g/dl Globulin 3.5 gm/dL Albumin/Globulin Ratio 1.1 (1-2) Lipase 155 (73-393) U/L Result Diagrams: 09/08/17 02:40 09/08/17 02:40 Consult PN Assessment/Plan Procedures: Procedures AGENT NOS ASSAY W/OPTIC (03/08/16) ASSAY OF BLOOD/URIC ACID (03/08/16) ASSAY OF LACTIC ACID (08/14/17) ASSAY OF LIPASE (03/08/16) ASSAY OF MAGNESIUM (03/21/17) ASSAY OF NATRIURETIC PEPTIDE (03/21/17) ASSAY OF TROPONIN QUANT (08/21/17) ASSAY OF VANCOMYCIN (06/01/16) BLOOD CULTURE FOR BACTERIA (06/01/16) C DIFF AMPLIFIED PROBE (06/01/16) C-REACTIVE PROTEIN (06/01/16) CARDIOVASCULAR STRESS TEST (03/21/17) CHEST X-RAY 1 VIEW FRONTAL (03/21/17) CHEST X-RAY 2VW FRONTAL&LATL (10/24/16) COMPLETE CBC AUTOMATED (11/13/15) COMPLETE CBC W/AUTO DIFF WBC (08/14/17) COMPREHEN METABOLIC PANEL (08/14/17) CREATINE MB FRACTION (03/21/17) CT ABD & PELVIS W/O CONTRAST (06/01/16) CT THORAX W/O DYE (12/15/14) CULTURE OTHR SPECIMN AEROBIC (06/01/16) DRAW BLOOD OFF VENOUS DEVICE (10/24/16) ELECTROCARDIOGRAM TRACING (03/21/17) ELECTROLYTE PANEL (11/13/15) EMERGENCY DEPT VISIT (08/14/17) EMERGENCY DEPT VISIT (02/01/17) EMERGENCY DEPT VISIT (10/24/16) EMERGENCY DEPT VISIT (08/01/16) EMERGENCY DEPT VISIT (03/08/16) FIBRIN DEGRADATION QUANT (03/21/17) GAIT TRAINING THERAPY (06/01/16) HT MUSCLE IMAGE SPECT MULT (03/21/17) HYDRATE IV INFUSION ADD-ON (08/14/17) LEUKOCYTE ASSESSMENT FECAL (03/08/16) LIPID PANEL (03/21/17) MEASURE BLOOD OXYGEN LEVEL (11/13/15) METABOLIC PANEL TOTAL CA (03/21/17) NEUROMUSCULAR REEDUCATION (03/08/16) OCCULT BLOOD OTHER SOURCES (08/14/17) OT EVAL LOW COMPLEX 30 MIN (06/01/16) OT EVALUATION (03/08/16) PROTHROMBIN TIME (03/21/17) PT EVAL MOD COMPLEX 30 MIN (06/01/16) PT EVALUATION (03/08/16) ROUTINE VENIPUNCTURE (08/14/17) SELF CARE MNGMENT TRAINING (06/01/16) SMEAR GRAM STAIN (06/01/16) STOOL CULTR AEROBIC BACT EA (03/08/16) THER/PROPH/DIAG INJ IV PUSH (08/14/17) THERAPEUTIC EXERCISES (06/01/16) THROMBOPLASTIN TIME PARTIAL (03/21/17) TX/PRO/DX INJ NEW DRUG ADDON (08/14/17) URINALYSIS AUTO W/SCOPE (03/08/16) US EXAM ABDO BACK WALL JEFFREY (03/08/16) VANOMYCIN DNA AMP PROBE (06/01/16) X-RAY EXAM ABDOMEN 2 VIEWS (08/14/17) X-RAY EXAM OF ABDOMEN (06/01/16) X-RAY EXAM OF ABDOMEN (03/08/16) X-RAY EXAM OF ABDOMEN (11/13/15) (1) Small bowel obstruction due to adhesions SNOMED Code(s): 180150436 Code(s): K56.50 - INTESTNL ADHESIONS, UNSP TO PARTIAL VERSUS COMPLETE OBST Priority: Medium Current Visit: Yes Assessment:: Partial mid small bowel obstruction. Chances are that this should resolve with medical management alone as it did before. His leukocytosis of 14,000 is concerning and will need to be followed. Additionally this patient is 2-3 years from a colon cancer diagnosis and it must be remembered that he is at risk for a local recurrence or a metachronous lesion within the GI tract. After discharge he should follow-up with his medical provider regarding a possible colonoscopy. Problem List Initiated/Reviewed/Updated: Yes Plan: Nasogastric tube repositioning with ongoing IV hydration. Serial examinations daily, and repeat CBC within 24-48 hours.
[2017-09-08] MEDS ORDERED: Lidocaine 2% Viscous Solution 15 ML Cup PO PRN (09:44)
[2017-09-08] MEDS ORDERED: Benzocaine 20% Oral Spray 59.2 ML Canister MUCMEM PRN (09:46)
--- NOTE | 2017-09-08 12:51 | CR ---
Chest: Frontal view of the chest was obtained as well as additional view centered to the diaphragms. Nasogastric tube lies within the expected stomach antrum. Surgical clips are again noted within the abdomen. Left-sided infusion catheter is seen. Lungs remain clear. Heart size and mediastinum are stable. Degenerative change is seen within the shoulders. Impression: 1. Tip of endotracheal tube in the expected stomach antrum. 2. Other incidental findings which are stable. Diagnostic code #2 Agree with preliminary report issued by [facility] ([facility] preliminary report dictated on 09/08/17, 12:05 PM Central Time)
--- NOTE | 2017-09-08 12:51 | CT ---
CT abdomen and pelvis Technique: Multiple axial sections were obtained from above the dome of the diaphragm inferiorly through the pubic symphysis. Intravenous was not utilized. Oral contrast has been given. Oral contrast remains within the stomach and proximal small bowel. Comparison: Prior CT exam of 06/02/16. Findings: Subpleural nodule is identified within the right lung base. This measures about 1.3 cm in size. This has increased in size from more remote exams. Second pleural nodule is identified within the right lung base measuring 9 mm which also has slightly increased from prior study. There is some scarring identified within this area. Slightly enlarged lymph node is seen within the periaortic region within the chest measuring about 1.8 cm. This is partially visualized on previous study and appear slightly increased in size. Liver shows a low-density lesion with calcifications measuring 3.0 cm. This has increased in size from previous exam. No additional abnormality is appreciated within the liver. Spleen appears within normal limits. Previous right nephrectomy is noted. Cysts are seen within the left kidney with largest cyst measuring 4.2 cm. Right adrenal gland shows no nodule. Left adrenal gland is full in size which is felt to be incidental. Pancreas is normal. Previous bowel surgery is seen. Jejunum is dilated. Distal ileum shows no dilatation. Aorta shows atherosclerotic change which continues into the iliac vessels. No aneurysm is seen. No pelvic mass or adenopathy is seen. Prostate calcifications are noted. Diffuse degenerative change is noted throughout the spine. Impression: 1. Two nodules within the right lung base in the subpleural location which have increased in size from previous study. Uncertain if this represents increasing nodular scarring or represents neoplastic change. 2. Enlarging liver lesion from prior exam. Difficult to exclude neoplastic lesion. 3. Previous right nephrectomy. 4. Multiple cysts within the left kidney. 5. Dilated jejunum with previous bowel surgery. More distal ileum appears normal in caliber. Findings suspicious for a mild chronic partial small bowel obstruction. Findings are fairly stable from previous exam. 6. Lymph node within the periaortic region within the lower mediastinum slightly increased from prior study suspicious for metastatic involvement. Diagnostic code #9 I agree with preliminary report from [facility], finalized at 09/08/17, 6:31 AM Central Time
--- NOTE | 2017-09-08 12:51 | CR ---
Abdomen: Supine and upright views of the abdomen were obtained. Comparison: Air-fluid levels are seen within small bowel loops. Surgical clips are seen within the abdomen. Vascular calcification is noted. Old healed trauma is noted within the pelvis. Diffuse joint space narrowing is noted within the right hip. Degenerative change is scattered throughout the spine. Impression: 1. Multiple air-fluid levels within small bowel suspicious for distal small bowel obstruction. 2. Other incidental findings. Diagnostic code #3
[2017-09-08] MEDS ORDERED: 50% Dextrose in Water 50 ML Syringe IVPUSH PRN (13:14)
[2017-09-08] MEDS ORDERED: Metoprolol Tartrate 5 MG/5 ML SDV IVPUSH PRN (13:15)
[2017-09-08] MEDS ORDERED: hydrALAZINE 20 MG/ML SDV IVPUSH PRN (13:15)
[2017-09-08] MEDS: Sodium Chloride 0.45% 1,000 ML IV SCH ×2 (14:07→22:04)
[2017-09-08] MEDS: Heparin Sodium 5,000 Units/ML Vial SUBCUT SCH ×2 (14:07→20:32)
[2017-09-08] MEDS ORDERED: Morphine 2 MG/ML Syringe IVPUSH ONE (19:35)
[2017-09-08] MEDS ORDERED: Aspirin 81 MG Tab.Chew PO ONE (19:42)
[2017-09-08] MEDS: Famotidine 20 MG/2 ML SDV IVPUSH SCH (20:32)
[2017-09-08] MEDS ORDERED: Metoprolol Succinate 25 MG Tab.ER PO ONE (21:00)
[2017-09-09] MEDS: Sodium Chloride 0.45% 1,000 ML IV SCH ×2 (05:50→13:54)
[2017-09-09] MEDS: Heparin Sodium 5,000 Units/ML Vial SUBCUT SCH ×3 (05:50→20:48)
--- NOTE | 2017-09-09 07:45 | PCM.CONSN ---
- General Info Date of Service: 09/09/17 Functional Status: Reports: Pain Controlled, Ambulating, Urinating - Review of Systems General: Reports: Other (No nausea and no further vomiting) Gastrointestinal: Reports: Other (Bowel movement but didn't pass gas) - Patient Data Vitals - Most Recent: Last Vital Signs Temp 36.9 C 09/08/17 20:35 Pulse 74 09/08/17 20:35 Resp 18 09/08/17 20:35 BP 106/68 09/08/17 20:35 Pulse Ox 92 L 09/08/17 20:35 Weight - Most Recent: 89.046 kg I&O - Last 24 Hours: Intake & Output 09/08/17 09/09/17 09/09/17 22:59 06:59 14:59 Intake Total 1271 1570 Output Total 350 425 Balance 921 1145 Lab Results Last 24 Hours: Laboratory Results - last 24 hr 09/08/17 09/08/17 09/08/17 Range/Units 11:43 20:08 20:52 WBC (4.23-9.07) K/mm3 RBC (4.63-6.08) M/mm3 Hgb (13.7-17.5) gm/L Hct (40.1-51.0) % MCV (79.0-92.2) fl MCH (25.7-32.2) pg MCHC (32.2-35.5) g/dl RDW Std Deviation (35.1-43.9) fL Plt Count (163-337) K/mm3 MPV (9.4-12.3) fl Neut % (Auto) (34.0-67.9) % Lymph % (Auto) (21.8-53.1) % [place] % (Auto) (5.3-12.2) % Eos % (Auto) (0.8-7.0) Baso % (Auto) (0.1-1.2) % Neut # (Auto) (1.78-5.38) K/mm3 Lymph # (Auto) (1.32-3.57) K/mm3 [place] # (Auto) (0.30-0.82) K/mm3 Eos # (Auto) (0.04-0.54) K/mm3 Baso # (Auto) (0.01-0.08) K/mm3 Sodium (136-145) mEq/L Potassium (3.5-5.1) mEq/L Chloride (98-107) mEq/L Carbon Dioxide (21-32) mEq/L Anion Gap (5-15) BUN (7-18) mg/dL Creatinine (0.7-1.3) mg/dL Est Cr Clr Drug Dosing mL/min Estimated GFR (MDRD) (>60) mL/min BUN/Creatinine Ratio (14-18) Glucose (83-115) mg/dL POC Glucose 120 H (83-110) mg/dL Lactic Acid 1.5 (0.4-2.0) mmol/L Calcium (8.5-10.1) mg/dL Magnesium (1.8-2.4) mg/dl Troponin I < 0.017 (0.00-0.056) ng/mL 09/09/17 09/09/17 09/09/17 Range/Units 05:30 05:30 05:30 WBC 5.67 (4.23-9.07) K/mm3 RBC 4.25 L (4.63-6.08) M/mm3 Hgb 11.7 L (13.7-17.5) gm/L Hct 36.5 L (40.1-51.0) % MCV 85.9 (79.0-92.2) fl MCH 27.5 (25.7-32.2) pg MCHC 32.1 L (32.2-35.5) g/dl RDW Std Deviation 48.0 H (35.1-43.9) fL Plt Count 167 (163-337) K/mm3 MPV 11.7 (9.4-12.3) fl Neut % (Auto) 51.8 (34.0-67.9) % Lymph % (Auto) 27.0 (21.8-53.1) % [place] % (Auto) 15.0 H (5.3-12.2) % Eos % (Auto) 5.5 (0.8-7.0) Baso % (Auto) 0.5 (0.1-1.2) % Neut # (Auto) 2.94 (1.78-5.38) K/mm3 Lymph # (Auto) 1.53 (1.32-3.57) K/mm3 [place] # (Auto) 0.85 H (0.30-0.82) K/mm3 Eos # (Auto) 0.31 (0.04-0.54) K/mm3 Baso # (Auto) 0.03 (0.01-0.08) K/mm3 Sodium 136 (136-145) mEq/L Potassium 4.0 (3.5-5.1) mEq/L Chloride 105 (98-107) mEq/L Carbon Dioxide 25 (21-32) mEq/L Anion Gap 10.0 (5-15) BUN 51 H (7-18) mg/dL Creatinine 2.5 H (0.7-1.3) mg/dL Est Cr Clr Drug Dosing 23.94 mL/min Estimated GFR (MDRD) 25 (>60) mL/min BUN/Creatinine Ratio 20.4 H (14-18) Glucose 99 (83-115) mg/dL POC Glucose (83-110) mg/dL Lactic Acid 1.0 (0.4-2.0) mmol/L Calcium 7.8 L (8.5-10.1) mg/dL Magnesium 2.2 (1.8-2.4) mg/dl Troponin I < 0.017 (0.00-0.056) ng/mL 09/09/17 Range/Units 05:55 WBC (4.23-9.07) K/mm3 RBC (4.63-6.08) M/mm3 Hgb (13.7-17.5) gm/L Hct (40.1-51.0) % MCV (79.0-92.2) fl MCH (25.7-32.2) pg MCHC (32.2-35.5) g/dl RDW Std Deviation (35.1-43.9) fL Plt Count (163-337) K/mm3 MPV (9.4-12.3) fl Neut % (Auto) (34.0-67.9) % Lymph % (Auto) (21.8-53.1) % [place] % (Auto) (5.3-12.2) % Eos % (Auto) (0.8-7.0) Baso % (Auto) (0.1-1.2) % Neut # (Auto) (1.78-5.38) K/mm3 Lymph # (Auto) (1.32-3.57) K/mm3 [place] # (Auto) (0.30-0.82) K/mm3 Eos # (Auto) (0.04-0.54) K/mm3 Baso # (Auto) (0.01-0.08) K/mm3 Sodium (136-145) mEq/L Potassium (3.5-5.1) mEq/L Chloride (98-107) mEq/L Carbon Dioxide (21-32) mEq/L Anion Gap (5-15) BUN (7-18) mg/dL Creatinine (0.7-1.3) mg/dL Est Cr Clr Drug Dosing mL/min Estimated GFR (MDRD) (>60) mL/min BUN/Creatinine Ratio (14-18) Glucose (83-115) mg/dL POC Glucose 99 (83-110) mg/dL Lactic Acid (0.4-2.0) mmol/L Calcium (8.5-10.1) mg/dL Magnesium (1.8-2.4) mg/dl Troponin I (0.00-0.056) ng/mL Kashif Results Last 24 Hours: Microbiology 09/08/17 03:22 Aerobic Blood Culture - Preliminary Blood - Venous - Lab Draw NO GROWTH AFTER 1 DAY Anaerobic Blood Culture - Preliminary NO GROWTH AFTER 1 DAY 09/08/17 03:15 Aerobic Blood Culture - Preliminary Blood - Venous NO GROWTH AFTER 1 DAY Anaerobic Blood Culture - Preliminary NO GROWTH AFTER 1 DAY Med Orders - Current: Current Medications Benzocaine (Hurricaine 20% Cascade) 0 ml MUCMEM Q4HR PRN PRN Reason: Pain Last Admin: 09/08/17 10:04 Dose: 1 spray Dextrose/Water (Dextrose 50% In Water) 50 ml IVPUSH ASDIRECTED PRN PRN Reason: Hypoglycemia Famotidine (Pepcid) 20 mg IVPUSH BEDTIME SHANNON Last Admin: 09/08/17 20:32 Dose: 20 mg Heparin Sodium (Porcine) (Heparin Sodium) 5,000 units SUBCUT Q8H SHANNON Last Admin: 09/09/17 05:50 Dose: 5,000 units Hydralazine HCl (Apresoline) 20 mg IVPUSH Q6H PRN PRN Reason: Hypertension Sodium Chloride (Sodium Chloride 0.45%) 1,000 mls @ 125 mls/hr IV ASDIRECTED [facility] Last Admin: 09/09/17 05:50 Dose: 125 mls/hr Lidocaine HCl (Xylocaine 2% Viscous) 15 ml PO ASDIRECTED PRN PRN Reason: NG placement Last Admin: 09/08/17 10:04 Dose: 15 ml Metoprolol Succinate (Toprol Xl) 50 mg PO DAILY [facility] Metoprolol Tartrate (Lopressor) 5 mg IVPUSH Q6H PRN PRN Reason: HR>120 Last Admin: 09/08/17 19:46 Dose: 5 mg Discontinued Medications Aspirin (Aspirin) 81 mg PO ONETIME ONE Stop: 09/08/17 19:43 Last Admin: 09/08/17 19:51 Dose: 81 mg Diatrizoate Meglum/Diatrizoate Sod (Gastrografin 37%) 90 ml PO ONETIME ONE Stop: 09/08/17 05:01 Last Admin: 09/08/17 05:25 Dose: 90 ml Famotidine (Pepcid) 20 mg IVPUSH ONETIME ONE Stop: 09/08/17 02:33 Last Admin: 09/08/17 02:43 Dose: 20 mg Hydromorphone HCl (Dilaudid) 0.5 mg IVPUSH ONETIME ONE Stop: 09/08/17 03:07 Last Admin: 09/08/17 03:13 Dose: 0.5 mg Sodium Chloride (Normal Saline) 1,000 mls @ 1,000 mls/hr IV ASDIRECTED [facility] Last Admin: 09/08/17 02:41 Dose: 1,000 mls/hr Lidocaine HCl (Xylocaine 2% Jelly) Confirm Administered Dose 10 ml .ROUTE .STK- MED ONE Stop: 09/08/17 05:40 Last Admin: 09/08/17 05:58 Dose: 10 ml Lidocaine HCl (Xylocaine 4% Top Soln) 3 ml MUCMEM ONETIME ONE Stop: 09/08/17 05:58 Last Admin: 09/08/17 05:50 Dose: 3 ml Metoprolol Succinate (Toprol Xl) 25 mg PO ONETIME ONE Stop: 09/08/17 21:01 Last Admin: 09/08/17 20:35 Dose: Not Given Morphine Sulfate (Morphine) 2 mg IVPUSH ONETIME ONE Stop: 09/08/17 19:36 Last Admin: 09/08/17 19:46 Dose: 2 mg Ondansetron HCl (Zofran) 4 mg IVPUSH ONETIME ONE Stop: 09/08/17 02:33 Last Admin: 09/08/17 02:42 Dose: 4 mg - Exam GI/Abdominal Exam: Soft, Non-Tender, Distended (Mildly distended) Consult PN Assessment/Plan Procedures: Procedures AGENT NOS ASSAY W/OPTIC (03/08/16) ASSAY OF BLOOD/URIC ACID (03/08/16) ASSAY OF LACTIC ACID (08/14/17) ASSAY OF LIPASE (03/08/16) ASSAY OF MAGNESIUM (03/21/17) ASSAY OF NATRIURETIC PEPTIDE (03/21/17) ASSAY OF TROPONIN QUANT (08/21/17) ASSAY OF VANCOMYCIN (06/01/16) BLOOD CULTURE FOR BACTERIA (06/01/16) C DIFF AMPLIFIED PROBE (06/01/16) C-REACTIVE PROTEIN (06/01/16) CARDIOVASCULAR STRESS TEST (03/21/17) CHEST X-RAY 1 VIEW FRONTAL (03/21/17) CHEST X-RAY 2VW FRONTAL&LATL (10/24/16) COMPLETE CBC AUTOMATED (11/13/15) COMPLETE CBC W/AUTO DIFF WBC (08/14/17) COMPREHEN METABOLIC PANEL (08/14/17) CREATINE MB FRACTION (03/21/17) CT ABD & PELVIS W/O CONTRAST (06/01/16) CT THORAX W/O DYE (12/15/14) CULTURE OTHR SPECIMN AEROBIC (06/01/16) DRAW BLOOD OFF VENOUS DEVICE (10/24/16) ELECTROCARDIOGRAM TRACING (03/21/17) ELECTROLYTE PANEL (11/13/15) EMERGENCY DEPT VISIT (08/14/17) EMERGENCY DEPT VISIT (02/01/17) EMERGENCY DEPT VISIT (10/24/16) EMERGENCY DEPT VISIT (08/01/16) EMERGENCY DEPT VISIT (03/08/16) FIBRIN DEGRADATION QUANT (03/21/17) GAIT TRAINING THERAPY (06/01/16) HT MUSCLE IMAGE SPECT MULT (03/21/17) HYDRATE IV INFUSION ADD-ON (08/14/17) LEUKOCYTE ASSESSMENT FECAL (03/08/16) LIPID PANEL (03/21/17) MEASURE BLOOD OXYGEN LEVEL (11/13/15) METABOLIC PANEL TOTAL CA (03/21/17) NEUROMUSCULAR REEDUCATION (03/08/16) OCCULT BLOOD OTHER SOURCES (08/14/17) OT EVAL LOW COMPLEX 30 MIN (06/01/16) OT EVALUATION (03/08/16) PROTHROMBIN TIME (03/21/17) PT EVAL MOD COMPLEX 30 MIN (06/01/16) PT EVALUATION (03/08/16) ROUTINE VENIPUNCTURE (08/14/17) SELF CARE MNGMENT TRAINING (06/01/16) SMEAR GRAM STAIN (06/01/16) STOOL CULTR AEROBIC BACT EA (03/08/16) THER/PROPH/DIAG INJ IV PUSH (08/14/17) THERAPEUTIC EXERCISES (06/01/16) THROMBOPLASTIN TIME PARTIAL (03/21/17) TX/PRO/DX INJ NEW DRUG ADDON (08/14/17) URINALYSIS AUTO W/SCOPE (03/08/16) US EXAM ABDO BACK WALL JEFFREY (03/08/16) VANOMYCIN DNA AMP PROBE (06/01/16) X-RAY EXAM ABDOMEN 2 VIEWS (08/14/17) X-RAY EXAM OF ABDOMEN (06/01/16) X-RAY EXAM OF ABDOMEN (03/08/16) X-RAY EXAM OF ABDOMEN (11/13/15) (1) Small bowel obstruction due to adhesions SNOMED Code(s): 385048984 Code(s): K56.50 - INTESTNL ADHESIONS, UNSP TO PARTIAL VERSUS COMPLETE OBST Priority: Medium Current Visit: Yes Assessment:: Good to see he had a bowel appointment. He'll probably pass gas today. Temperature is stable, his white count has normalized which suggests its elevation was a stress response. Potassium is normal as well. Problem List Initiated/Reviewed/Updated: Yes My Orders Last 24 Hours: My Active Orders 09/08/17 09:44 Lidocaine 2% [Xylocaine 2% Viscous] 15 ml PO ASDIRECTED PRN 09/08/17 09:46 Benzocaine [Hurricaine 20% Cascade] 0 ml MUCMEM Q4HR PRN Plan: Same.
[2017-09-09] MEDS: Metoprolol Succinate 50 MG Tab.ER PO SCH (08:51)
--- NOTE | 2017-09-09 13:46 | PCM.PN ---
- General Info Date of Service: 09/09/17 Functional Status: Reports: Pain Controlled, Ambulating, Urinating - Review of Systems General: Reports: No Symptoms HEENT: Reports: No Symptoms Pulmonary: Reports: No Symptoms Cardiovascular: Reports: No Symptoms Gastrointestinal: Reports: Abdominal Pain Genitourinary: Reports: No Symptoms Musculoskeletal: Reports: No Symptoms Skin: Reports: No Symptoms Neurological: Reports: No Symptoms Psychiatric: Reports: No Symptoms - Patient Data Vitals - Most Recent: Last Vital Signs Temp 37.2 C 09/09/17 11:29 Pulse 68 09/09/17 11:29 Resp 16 09/09/17 11:29 BP 120/74 09/09/17 11:29 Pulse Ox 100 09/09/17 11:29 Weight - Most Recent: 89.046 kg I&O - Last 24 Hours: Intake & Output 09/08/17 09/09/17 09/09/17 22:59 06:59 14:59 Intake Total 1271 1570 Output Total 350 425 Balance 921 1145 Lab Results Last 24 Hours: Laboratory Results - last 24 hr 09/08/17 09/08/17 09/09/17 Range/Units 20:08 20:52 05:30 WBC 5.67 (4.23-9.07) K/mm3 RBC 4.25 L (4.63-6.08) M/mm3 Hgb 11.7 L (13.7-17.5) gm/L Hct 36.5 L (40.1-51.0) % MCV 85.9 (79.0-92.2) fl MCH 27.5 (25.7-32.2) pg MCHC 32.1 L (32.2-35.5) g/dl RDW Std Deviation 48.0 H (35.1-43.9) fL Plt Count 167 (163-337) K/mm3 MPV 11.7 (9.4-12.3) fl Neut % (Auto) 51.8 (34.0-67.9) % Lymph % (Auto) 27.0 (21.8-53.1) % [place] % (Auto) 15.0 H (5.3-12.2) % Eos % (Auto) 5.5 (0.8-7.0) Baso % (Auto) 0.5 (0.1-1.2) % Neut # (Auto) 2.94 (1.78-5.38) K/mm3 Lymph # (Auto) 1.53 (1.32-3.57) K/mm3 [place] # (Auto) 0.85 H (0.30-0.82) K/mm3 Eos # (Auto) 0.31 (0.04-0.54) K/mm3 Baso # (Auto) 0.03 (0.01-0.08) K/mm3 Sodium (136-145) mEq/L Potassium (3.5-5.1) mEq/L Chloride (98-107) mEq/L Carbon Dioxide (21-32) mEq/L Anion Gap (5-15) BUN (7-18) mg/dL Creatinine (0.7-1.3) mg/dL Est Cr Clr Drug Dosing mL/min Estimated GFR (MDRD) (>60) mL/min BUN/Creatinine Ratio (14-18) Glucose (83-115) mg/dL POC Glucose 120 H (83-110) mg/dL Lactic Acid (0.4-2.0) mmol/L Calcium (8.5-10.1) mg/dL Magnesium (1.8-2.4) mg/dl Troponin I < 0.017 (0.00-0.056) ng/mL 09/09/17 09/09/17 09/09/17 Range/Units 05:30 05:30 05:55 WBC (4.23-9.07) K/mm3 RBC (4.63-6.08) M/mm3 Hgb (13.7-17.5) gm/L Hct (40.1-51.0) % MCV (79.0-92.2) fl MCH (25.7-32.2) pg MCHC (32.2-35.5) g/dl RDW Std Deviation (35.1-43.9) fL Plt Count (163-337) K/mm3 MPV (9.4-12.3) fl Neut % (Auto) (34.0-67.9) % Lymph % (Auto) (21.8-53.1) % [place] % (Auto) (5.3-12.2) % Eos % (Auto) (0.8-7.0) Baso % (Auto) (0.1-1.2) % Neut # (Auto) (1.78-5.38) K/mm3 Lymph # (Auto) (1.32-3.57) K/mm3 [place] # (Auto) (0.30-0.82) K/mm3 Eos # (Auto) (0.04-0.54) K/mm3 Baso # (Auto) (0.01-0.08) K/mm3 Sodium 136 (136-145) mEq/L Potassium 4.0 (3.5-5.1) mEq/L Chloride 105 (98-107) mEq/L Carbon Dioxide 25 (21-32) mEq/L Anion Gap 10.0 (5-15) BUN 51 H (7-18) mg/dL Creatinine 2.5 H (0.7-1.3) mg/dL Est Cr Clr Drug Dosing 23.94 mL/min Estimated GFR (MDRD) 25 (>60) mL/min BUN/Creatinine Ratio 20.4 H (14-18) Glucose 99 (83-115) mg/dL POC Glucose 99 (83-110) mg/dL Lactic Acid 1.0 (0.4-2.0) mmol/L Calcium 7.8 L (8.5-10.1) mg/dL Magnesium 2.2 (1.8-2.4) mg/dl Troponin I < 0.017 (0.00-0.056) ng/mL 09/09/17 Range/Units 10:28 WBC (4.23-9.07) K/mm3 RBC (4.63-6.08) M/mm3 Hgb (13.7-17.5) gm/L Hct (40.1-51.0) % MCV (79.0-92.2) fl MCH (25.7-32.2) pg MCHC (32.2-35.5) g/dl RDW Std Deviation (35.1-43.9) fL Plt Count (163-337) K/mm3 MPV (9.4-12.3) fl Neut % (Auto) (34.0-67.9) % Lymph % (Auto) (21.8-53.1) % [place] % (Auto) (5.3-12.2) % Eos % (Auto) (0.8-7.0) Baso % (Auto) (0.1-1.2) % Neut # (Auto) (1.78-5.38) K/mm3 Lymph # (Auto) (1.32-3.57) K/mm3 [place] # (Auto) (0.30-0.82) K/mm3 Eos # (Auto) (0.04-0.54) K/mm3 Baso # (Auto) (0.01-0.08) K/mm3 Sodium (136-145) mEq/L Potassium (3.5-5.1) mEq/L Chloride (98-107) mEq/L Carbon Dioxide (21-32) mEq/L Anion Gap (5-15) BUN (7-18) mg/dL Creatinine (0.7-1.3) mg/dL Est Cr Clr Drug Dosing mL/min Estimated GFR (MDRD) (>60) mL/min BUN/Creatinine Ratio (14-18) Glucose (83-115) mg/dL POC Glucose 88 (83-110) mg/dL Lactic Acid (0.4-2.0) mmol/L Calcium (8.5-10.1) mg/dL Magnesium (1.8-2.4) mg/dl Troponin I (0.00-0.056) ng/mL Kashif Results Last 24 Hours: Microbiology 09/08/17 03:22 Aerobic Blood Culture - Preliminary Blood - Venous - Lab Draw NO GROWTH AFTER 1 DAY Anaerobic Blood Culture - Preliminary NO GROWTH AFTER 1 DAY 09/08/17 03:15 Aerobic Blood Culture - Preliminary Blood - Venous NO GROWTH AFTER 1 DAY Anaerobic Blood Culture - Preliminary NO GROWTH AFTER 1 DAY Med Orders - Current: Current Medications Benzocaine (Hurricaine 20% [place]) 0 ml MUCMEM Q4HR PRN PRN Reason: Pain Last Admin: 09/08/17 10:04 Dose: 1 spray Dextrose/Water (Dextrose 50% In Water) 50 ml IVPUSH ASDIRECTED PRN PRN Reason: Hypoglycemia Famotidine (Pepcid) 20 mg IVPUSH BEDTIME [facility] Last Admin: 09/08/17 20:32 Dose: 20 mg Heparin Sodium (Porcine) (Heparin Sodium) 5,000 units SUBCUT Q8H [facility] Last Admin: 09/09/17 13:13 Dose: 5,000 units Hydralazine HCl (Apresoline) 20 mg IVPUSH Q6H PRN PRN Reason: Hypertension Sodium Chloride (Sodium Chloride 0.45%) 1,000 mls @ 125 mls/hr IV ASDIRECTED [facility] Last Admin: 09/09/17 05:50 Dose: 125 mls/hr Lidocaine HCl (Xylocaine 2% Viscous) 15 ml PO ASDIRECTED PRN PRN Reason: NG placement Last Admin: 09/08/17 10:04 Dose: 15 ml Metoprolol Succinate (Toprol Xl) 50 mg PO DAILY [facility] Last Admin: 09/09/17 08:51 Dose: 50 mg Metoprolol Tartrate (Lopressor) 5 mg IVPUSH Q6H PRN PRN Reason: HR>120 Last Admin: 09/08/17 19:46 Dose: 5 mg Discontinued Medications Aspirin (Aspirin) 81 mg PO ONETIME ONE Stop: 09/08/17 19:43 Last Admin: 09/08/17 19:51 Dose: 81 mg Diatrizoate Meglum/Diatrizoate Sod (Gastrografin 37%) 90 ml PO ONETIME ONE Stop: 09/08/17 05:01 Last Admin: 09/08/17 05:25 Dose: 90 ml Famotidine (Pepcid) 20 mg IVPUSH ONETIME ONE Stop: 09/08/17 02:33 Last Admin: 09/08/17 02:43 Dose: 20 mg Hydromorphone HCl (Dilaudid) 0.5 mg IVPUSH ONETIME ONE Stop: 09/08/17 03:07 Last Admin: 09/08/17 03:13 Dose: 0.5 mg Sodium Chloride (Normal Saline) 1,000 mls @ 1,000 mls/hr IV ASDIRECTED [facility] Last Admin: 09/08/17 02:41 Dose: 1,000 mls/hr Lidocaine HCl (Xylocaine 2% Jelly) Confirm Administered Dose 10 ml .ROUTE .STK- MED ONE Stop: 09/08/17 05:40 Last Admin: 09/08/17 05:58 Dose: 10 ml Lidocaine HCl (Xylocaine 4% Top Soln) 3 ml MUCMEM ONETIME ONE Stop: 09/08/17 05:58 Last Admin: 09/08/17 05:50 Dose: 3 ml Metoprolol Succinate (Toprol Xl) 25 mg PO ONETIME ONE Stop: 09/08/17 21:01 Last Admin: 09/08/17 20:35 Dose: Not Given Morphine Sulfate (Morphine) 2 mg IVPUSH ONETIME ONE Stop: 09/08/17 19:36 Last Admin: 09/08/17 19:46 Dose: 2 mg Ondansetron HCl (Zofran) 4 mg IVPUSH ONETIME ONE Stop: 09/08/17 02:33 Last Admin: 09/08/17 02:42 Dose: 4 mg - Exam Quality Assessment: Supplemental Oxygen, DVT Prophylaxis General: Alert, Oriented, Cooperative, No Acute Distress HEENT: Pupils Equal, Pupils Reactive, EOMI Neck: Trachea Midline, No JVD Lungs: Clear to Auscultation, Normal Respiratory Effort Cardiovascular: Regular Rate, Regular Rhythm GI/Abdominal Exam: Soft, Non-Tender, No Organomegaly, Distended, Abnormal Bowel Sounds (Male) Exam: Deferred Back Exam: Normal Inspection Extremities: Normal Inspection, Non-Tender, No Pedal Edema Skin: Warm, Dry Neurological: No New Focal Deficit, Normal Speech Psy/Mental Status: Alert, Normal Affect, Normal Mood - Problem List & Annotations (1) Abdominal cramps SNOMED Code(s): 928928348, 677035098 Code(s): R10.9 - UNSPECIFIED ABDOMINAL PAIN Status: Acute Current Visit: Yes (2) Nausea and vomiting SNOMED Code(s): 04568237 Code(s): R11.2 - NAUSEA WITH VOMITING, UNSPECIFIED Status: Acute Current Visit: Yes Qualifiers: Vomiting type: unspecified Vomiting Intractability: non-intractable Qualified Code(s): R11.2 - Nausea with vomiting, unspecified (3) Small bowel obstruction due to adhesions SNOMED Code(s): 386874034 Code(s): K56.50 - INTESTNL ADHESIONS, UNSP TO PARTIAL VERSUS COMPLETE OBST Status: Acute Priority: Medium Current Visit: Yes (4) Hypertension SNOMED Code(s): 52678335 Code(s): I10 - ESSENTIAL (PRIMARY) HYPERTENSION Status: Acute Current Visit: No Qualifiers: Hypertension type: essential hypertension Qualified Code(s): I10 - Essential (primary) hypertension (5) Partial small bowel obstruction SNOMED Code(s): 262747684 Code(s): K56.69 - OTHER INTESTINAL OBSTRUCTION * DO NOT USE * Status: Acute Priority: High Current Visit: No (6) Renal insufficiency SNOMED Code(s): 875786559, 236474496 Code(s): N28.9 - DISORDER OF KIDNEY AND URETER, UNSPECIFIED Status: Acute Current Visit: No (7) CKD (chronic kidney disease) stage 3, GFR 30-59 ml/min SNOMED Code(s): 524182966 Code(s): N18.3 - CHRONIC KIDNEY DISEASE, STAGE 3 (MODERATE) Status: Chronic Priority: Low Current Visit: No (8) History of nephrectomy SNOMED Code(s): 34631421807416 Code(s): Z90.5 - ACQUIRED ABSENCE OF KIDNEY Status: Chronic Priority: Low Current Visit: No - Problem List Review Problem List Initiated/Reviewed/Updated: Yes - My Orders Last 24 Hours: My Active Orders 09/08/17 13:11 NG [Gastrointestinal Tube Mgmt] [RC] ASDIRECTED Vital Signs [RC] Q4HR 09/08/17 13:13 HOB [Head of Bed Elevation] [RC] ASDIRECTED 09/08/17 13:14 Dextrose 50% in Water 50 ml IVPUSH ASDIRECTED PRN 09/08/17 13:15 Metoprolol Tartrate [Lopressor] 5 mg IVPUSH Q6H PRN Sodium Chloride 0.45% 1,000 ml IV ASDIRECTED hydrALAZINE [Apresoline] 20 mg IVPUSH Q6H PRN 09/08/17 13:19 Consult to Physical Therapy [PT Evaluation and Treatment] [CONS] Routine 09/08/17 13:20 Consult to Occupational Therapy [OT Evaluation and Treatment] [CONS] Routine 09/08/17 13:30 Heparin Sodium 5,000 units SUBCUT Q8H 09/08/17 19:33 EKG 12 Lead [EK] Stat 09/08/17 21:00 Famotidine [Pepcid] 20 mg IVPUSH BEDTIME 09/09/17 02:35 Up With Assistance [RC] ASDIRECTED 09/09/17 09:00 Metoprolol Succinate [Toprol XL] 50 mg PO DAILY 09/09/17 12:00 Blood Glucose Check, Bedside [RC] Q6HR 09/09/17 Lunch NPO [Nothing Per Oral Diet] [DIET] 09/10/17 05:00 BMP [BASIC METABOLIC PANEL,BMP] [CHEM] DAILY CBC WITH AUTO DIFF [HEME] DAILY LACTIC ACID [CHEM] DAILY MAGNESIUM [CHEM] DAILY 09/11/17 05:00 BMP [BASIC METABOLIC PANEL,BMP] [CHEM] DAILY CBC WITH AUTO DIFF [HEME] DAILY LACTIC ACID [CHEM] DAILY MAGNESIUM [CHEM] DAILY 09/12/17 05:00 BMP [BASIC METABOLIC PANEL,BMP] [CHEM] DAILY CBC WITH AUTO DIFF [HEME] DAILY LACTIC ACID [CHEM] DAILY MAGNESIUM [CHEM] DAILY 09/13/17 05:00 BMP [BASIC METABOLIC PANEL,BMP] [CHEM] DAILY CBC WITH AUTO DIFF [HEME] DAILY LACTIC ACID [CHEM] DAILY MAGNESIUM [CHEM] DAILY - Plan Plan:: Impression: History of metastatic colon cancer, S/P right hemicolectomy; history of partial small bowel obstruction which resolved conservatively Acute partial SBO with NGT placed; +BM, -Flatus. Chronic HTN GERD Glaucoma COPD CKD III Hx of TIA Plan: IVF NGT as directed. Follow Physical Exam changes/NGT NPO except meds and ice chips; clamp NGT as needed. Gen Surg consult Daily Labs Replace Electrolytes Consult PT/OT/SM (as needed) DVT/GI prophylaxis
[2017-09-09] MEDS ORDERED: Dextrose 5%-0.45% NaCl 1,000 ML IV SCH (18:45)
[2017-09-09] MEDS: Famotidine 20 MG/2 ML SDV IVPUSH SCH (20:48)
[2017-09-10] MEDS: Heparin Sodium 5,000 Units/ML Vial SUBCUT SCH ×3 (05:07→20:38)
--- NOTE | 2017-09-10 07:25 | PCM.CONSN ---
- General Info Date of Service: 09/10/17 Functional Status: Reports: Pain Controlled, Ambulating, Urinating, Incentive Spirometry - Review of Systems HEENT: Reports: Other (His nose hurts.) Pulmonary: Reports: No Symptoms Gastrointestinal: Reports: No Symptoms - Patient Data Vitals - Most Recent: Last Vital Signs Temp 36.7 C 09/10/17 03:38 Pulse 69 09/10/17 03:38 Resp 16 09/10/17 03:38 BP 147/67 H 09/10/17 03:38 Pulse Ox 95 09/10/17 03:38 Weight - Most Recent: 88.314 kg I&O - Last 24 Hours: Intake & Output 09/09/17 09/10/17 09/10/17 22:59 06:59 14:59 Intake Total 1505 753 Output Total 300 1125 Balance 1205 -372 Lab Results Last 24 Hours: Laboratory Results - last 24 hr 09/09/17 09/09/17 09/09/17 Range/Units 10:28 17:38 18:14 WBC (4.23-9.07) K/mm3 RBC (4.63-6.08) M/mm3 Hgb (13.7-17.5) gm/L Hct (40.1-51.0) % MCV (79.0-92.2) fl MCH (25.7-32.2) pg MCHC (32.2-35.5) g/dl RDW Std Deviation (35.1-43.9) fL Plt Count (163-337) K/mm3 MPV (9.4-12.3) fl Neut % (Auto) (34.0-67.9) % Lymph % (Auto) (21.8-53.1) % [place] % (Auto) (5.3-12.2) % Eos % (Auto) (0.8-7.0) Baso % (Auto) (0.1-1.2) % Neut # (Auto) (1.78-5.38) K/mm3 Lymph # (Auto) (1.32-3.57) K/mm3 [place] # (Auto) (0.30-0.82) K/mm3 Eos # (Auto) (0.04-0.54) K/mm3 Baso # (Auto) (0.01-0.08) K/mm3 Manual Slide Review Sodium (136-145) mEq/L Potassium (3.5-5.1) mEq/L Chloride (98-107) mEq/L Carbon Dioxide (21-32) mEq/L Anion Gap (5-15) BUN (7-18) mg/dL Creatinine (0.7-1.3) mg/dL Est Cr Clr Drug Dosing mL/min Estimated GFR (MDRD) (>60) mL/min BUN/Creatinine Ratio (14-18) Glucose (83-115) mg/dL POC Glucose 88 77 L 132 H (83-110) mg/dL Lactic Acid (0.4-2.0) mmol/L Calcium (8.5-10.1) mg/dL Magnesium (1.8-2.4) mg/dl 09/10/17 09/10/17 09/10/17 Range/Units 00:01 05:05 05:05 WBC 5.07 (4.23-9.07) K/mm3 RBC 4.13 L (4.63-6.08) M/mm3 Hgb 11.3 L (13.7-17.5) gm/L Hct 35.5 L (40.1-51.0) % MCV 86.0 (79.0-92.2) fl MCH 27.4 (25.7-32.2) pg MCHC 31.8 L (32.2-35.5) g/dl RDW Std Deviation 46.4 H (35.1-43.9) fL Plt Count 155 L (163-337) K/mm3 MPV 11.6 (9.4-12.3) fl Neut % (Auto) 54.6 (34.0-67.9) % Lymph % (Auto) 21.7 L (21.8-53.1) % [place] % (Auto) 16.2 H (5.3-12.2) % Eos % (Auto) 7.1 H (0.8-7.0) Baso % (Auto) 0.2 (0.1-1.2) % Neut # (Auto) 2.77 (1.78-5.38) K/mm3 Lymph # (Auto) 1.10 L (1.32-3.57) K/mm3 [place] # (Auto) 0.82 (0.30-0.82) K/mm3 Eos # (Auto) 0.36 (0.04-0.54) K/mm3 Baso # (Auto) 0.01 (0.01-0.08) K/mm3 Manual Slide Review Normal smear Sodium 138 (136-145) mEq/L Potassium 3.5 (3.5-5.1) mEq/L Chloride 104 (98-107) mEq/L Carbon Dioxide 25 (21-32) mEq/L Anion Gap 12.5 (5-15) BUN 35 H (7-18) mg/dL Creatinine 1.7 H (0.7-1.3) mg/dL Est Cr Clr Drug Dosing 35.21 mL/min Estimated GFR (MDRD) 39 (>60) mL/min BUN/Creatinine Ratio 20.6 H (14-18) Glucose 108 (83-115) mg/dL POC Glucose 98 (83-110) mg/dL Lactic Acid (0.4-2.0) mmol/L Calcium 7.8 L (8.5-10.1) mg/dL Magnesium 2.2 (1.8-2.4) mg/dl 09/10/17 09/10/17 Range/Units 05:05 06:10 WBC (4.23-9.07) K/mm3 RBC (4.63-6.08) M/mm3 Hgb (13.7-17.5) gm/L Hct (40.1-51.0) % MCV (79.0-92.2) fl MCH (25.7-32.2) pg MCHC (32.2-35.5) g/dl RDW Std Deviation (35.1-43.9) fL Plt Count (163-337) K/mm3 MPV (9.4-12.3) fl Neut % (Auto) (34.0-67.9) % Lymph % (Auto) (21.8-53.1) % [place] % (Auto) (5.3-12.2) % Eos % (Auto) (0.8-7.0) Baso % (Auto) (0.1-1.2) % Neut # (Auto) (1.78-5.38) K/mm3 Lymph # (Auto) (1.32-3.57) K/mm3 [place] # (Auto) (0.30-0.82) K/mm3 Eos # (Auto) (0.04-0.54) K/mm3 Baso # (Auto) (0.01-0.08) K/mm3 Manual Slide Review Sodium (136-145) mEq/L Potassium (3.5-5.1) mEq/L Chloride (98-107) mEq/L Carbon Dioxide (21-32) mEq/L Anion Gap (5-15) BUN (7-18) mg/dL Creatinine (0.7-1.3) mg/dL Est Cr Clr Drug Dosing mL/min Estimated GFR (MDRD) (>60) mL/min BUN/Creatinine Ratio (14-18) Glucose (83-115) mg/dL POC Glucose 104 (83-110) mg/dL Lactic Acid 0.4 (0.4-2.0) mmol/L Calcium (8.5-10.1) mg/dL Magnesium (1.8-2.4) mg/dl Kashif Results Last 24 Hours: Microbiology 09/08/17 03:22 Aerobic Blood Culture - Preliminary Blood - Venous - Lab Draw NO GROWTH AFTER 2 DAYS Anaerobic Blood Culture - Preliminary NO GROWTH AFTER 2 DAYS 09/08/17 03:15 Aerobic Blood Culture - Preliminary Blood - Venous NO GROWTH AFTER 2 DAYS Anaerobic Blood Culture - Preliminary NO GROWTH AFTER 2 DAYS Med Orders - Current: Current Medications Benzocaine (Hurricaine 20% [place]) 0 ml MUCMEM Q4HR PRN PRN Reason: Pain Last Admin: 09/08/17 10:04 Dose: 1 spray Dextrose/Water (Dextrose 50% In Water) 50 ml IVPUSH ASDIRECTED PRN PRN Reason: Hypoglycemia Last Admin: 09/09/17 17:53 Dose: 25 ml Famotidine (Pepcid) 20 mg IVPUSH BEDTIME [facility] Last Admin: 09/09/17 20:48 Dose: 20 mg Heparin Sodium (Porcine) (Heparin Sodium) 5,000 units SUBCUT Q8H [facility] Last Admin: 09/10/17 05:07 Dose: 5,000 units Hydralazine HCl (Apresoline) 20 mg IVPUSH Q6H PRN PRN Reason: Hypertension Dextrose/Sodium Chloride (Dextrose 5%-1/2 Ns) 1,000 mls @ 75 mls/hr IV ASDIRECTED [facility] Last Admin: 09/09/17 18:46 Dose: 75 mls/hr Lidocaine HCl (Xylocaine 2% Viscous) 15 ml PO ASDIRECTED PRN PRN Reason: NG placement Last Admin: 09/08/17 10:04 Dose: 15 ml Metoprolol Succinate (Toprol Xl) 50 mg PO DAILY [facility] Last Admin: 09/09/17 08:51 Dose: 50 mg Metoprolol Tartrate (Lopressor) 5 mg IVPUSH Q6H PRN PRN Reason: HR>120 Last Admin: 09/08/17 19:46 Dose: 5 mg Discontinued Medications Aspirin (Aspirin) 81 mg PO ONETIME ONE Stop: 09/08/17 19:43 Last Admin: 09/08/17 19:51 Dose: 81 mg Diatrizoate Meglum/Diatrizoate Sod (Gastrografin 37%) 90 ml PO ONETIME ONE Stop: 09/08/17 05:01 Last Admin: 09/08/17 05:25 Dose: 90 ml Famotidine (Pepcid) 20 mg IVPUSH ONETIME ONE Stop: 09/08/17 02:33 Last Admin: 09/08/17 02:43 Dose: 20 mg Hydromorphone HCl (Dilaudid) 0.5 mg IVPUSH ONETIME ONE Stop: 09/08/17 03:07 Last Admin: 09/08/17 03:13 Dose: 0.5 mg Sodium Chloride (Normal Saline) 1,000 mls @ 1,000 mls/hr IV ASDIRECTED [facility] Last Admin: 09/08/17 02:41 Dose: 1,000 mls/hr Sodium Chloride (Sodium Chloride 0.45%) 1,000 mls @ 125 mls/hr IV ASDIRECTED [facility] Last Admin: 09/09/17 13:54 Dose: 125 mls/hr Lidocaine HCl (Xylocaine 2% Jelly) Confirm Administered Dose 10 ml .ROUTE .STK- MED ONE Stop: 09/08/17 05:40 Last Admin: 09/08/17 05:58 Dose: 10 ml Lidocaine HCl (Xylocaine 4% Top Soln) 3 ml MUCMEM ONETIME ONE Stop: 09/08/17 05:58 Last Admin: 09/08/17 05:50 Dose: 3 ml Metoprolol Succinate (Toprol Xl) 25 mg PO ONETIME ONE Stop: 09/08/17 21:01 Last Admin: 09/08/17 20:35 Dose: Not Given Morphine Sulfate (Morphine) 2 mg IVPUSH ONETIME ONE Stop: 09/08/17 19:36 Last Admin: 09/08/17 19:46 Dose: 2 mg Ondansetron HCl (Zofran) 4 mg IVPUSH ONETIME ONE Stop: 09/08/17 02:33 Last Admin: 09/08/17 02:42 Dose: 4 mg - Exam GI/Abdominal Exam: Soft, Non-Tender Consult PN Assessment/Plan Procedures: Procedures AGENT NOS ASSAY W/OPTIC (03/08/16) ASSAY OF BLOOD/URIC ACID (03/08/16) ASSAY OF LACTIC ACID (08/14/17) ASSAY OF LIPASE (03/08/16) ASSAY OF MAGNESIUM (03/21/17) ASSAY OF NATRIURETIC PEPTIDE (03/21/17) ASSAY OF TROPONIN QUANT (08/21/17) ASSAY OF VANCOMYCIN (06/01/16) BLOOD CULTURE FOR BACTERIA (06/01/16) C DIFF AMPLIFIED PROBE (06/01/16) C-REACTIVE PROTEIN (06/01/16) CARDIOVASCULAR STRESS TEST (03/21/17) CHEST X-RAY 1 VIEW FRONTAL (03/21/17) CHEST X-RAY 2VW FRONTAL&LATL (10/24/16) COMPLETE CBC AUTOMATED (11/13/15) COMPLETE CBC W/AUTO DIFF WBC (08/14/17) COMPREHEN METABOLIC PANEL (08/14/17) CREATINE MB FRACTION (03/21/17) CT ABD & PELVIS W/O CONTRAST (06/01/16) CT THORAX W/O DYE (12/15/14) CULTURE OTHR SPECIMN AEROBIC (06/01/16) DRAW BLOOD OFF VENOUS DEVICE (10/24/16) ELECTROCARDIOGRAM TRACING (03/21/17) ELECTROLYTE PANEL (11/13/15) EMERGENCY DEPT VISIT (08/14/17) EMERGENCY DEPT VISIT (02/01/17) EMERGENCY DEPT VISIT (10/24/16) EMERGENCY DEPT VISIT (08/01/16) EMERGENCY DEPT VISIT (03/08/16) FIBRIN DEGRADATION QUANT (03/21/17) GAIT TRAINING THERAPY (06/01/16) HT MUSCLE IMAGE SPECT MULT (03/21/17) HYDRATE IV INFUSION ADD-ON (08/14/17) LEUKOCYTE ASSESSMENT FECAL (03/08/16) LIPID PANEL (03/21/17) MEASURE BLOOD OXYGEN LEVEL (11/13/15) METABOLIC PANEL TOTAL CA (03/21/17) NEUROMUSCULAR REEDUCATION (03/08/16) OCCULT BLOOD OTHER SOURCES (08/14/17) OT EVAL LOW COMPLEX 30 MIN (06/01/16) OT EVALUATION (03/08/16) PROTHROMBIN TIME (03/21/17) PT EVAL MOD COMPLEX 30 MIN (06/01/16) PT EVALUATION (03/08/16) ROUTINE VENIPUNCTURE (08/14/17) SELF CARE MNGMENT TRAINING (06/01/16) SMEAR GRAM STAIN (06/01/16) STOOL CULTR AEROBIC BACT EA (03/08/16) THER/PROPH/DIAG INJ IV PUSH (08/14/17) THERAPEUTIC EXERCISES (06/01/16) THROMBOPLASTIN TIME PARTIAL (03/21/17) TX/PRO/DX INJ NEW DRUG ADDON (08/14/17) URINALYSIS AUTO W/SCOPE (03/08/16) US EXAM ABDO BACK WALL JEFFREY (03/08/16) VANOMYCIN DNA AMP PROBE (06/01/16) X-RAY EXAM ABDOMEN 2 VIEWS (08/14/17) X-RAY EXAM OF ABDOMEN (06/01/16) X-RAY EXAM OF ABDOMEN (03/08/16) X-RAY EXAM OF ABDOMEN (11/13/15) (1) Small bowel obstruction due to adhesions SNOMED Code(s): 612846437 Code(s): K56.50 - INTESTNL ADHESIONS, UNSP TO PARTIAL VERSUS COMPLETE OBST Priority: Medium Current Visit: Yes Assessment:: No further nausea and vomiting. Multiple rounds of passing gas and bowel movements. Temperature and white count are normal and his abdominal exam is nonfocal. Ready for discharge today or tomorrow. Problem List Initiated/Reviewed/Updated: Yes Plan: Discontinue nasogastric tube. I'll start a full liquid diet which could probably be advanced to a regular diet later today or at home.
[2017-09-10] MEDS ORDERED: Sodium Chloride 0.9% 10 ML Syringe FLUSH PRN (07:27)
[2017-09-10] MEDS: Metoprolol Succinate 50 MG Tab.ER PO SCH (08:36)
--- NOTE | 2017-09-10 11:01 | PCM.PN ---
- General Info Date of Service: 09/10/17 Functional Status: Reports: Pain Controlled, Tolerating Diet, Ambulating, Urinating - Review of Systems General: Reports: No Symptoms HEENT: Reports: No Symptoms Pulmonary: Reports: No Symptoms Cardiovascular: Reports: No Symptoms Gastrointestinal: Reports: No Symptoms Genitourinary: Reports: No Symptoms Musculoskeletal: Reports: No Symptoms Skin: Reports: No Symptoms Neurological: Reports: No Symptoms Psychiatric: Reports: No Symptoms - Patient Data Vitals - Most Recent: Last Vital Signs Temp 37.1 C 09/10/17 07:51 Pulse 67 09/10/17 08:36 Resp 18 09/10/17 07:51 BP 129/85 09/10/17 08:36 Pulse Ox 98 09/10/17 07:51 Weight - Most Recent: 88.314 kg I&O - Last 24 Hours: Intake & Output 09/09/17 09/10/17 09/10/17 22:59 06:59 14:59 Intake Total 1505 753 859 Output Total 300 1125 75 Balance 1205 -372 784 Lab Results Last 24 Hours: Laboratory Results - last 24 hr 09/09/17 09/09/17 09/10/17 Range/Units 17:38 18:14 00:01 WBC (4.23-9.07) K/mm3 RBC (4.63-6.08) M/mm3 Hgb (13.7-17.5) gm/L Hct (40.1-51.0) % MCV (79.0-92.2) fl MCH (25.7-32.2) pg MCHC (32.2-35.5) g/dl RDW Std Deviation (35.1-43.9) fL Plt Count (163-337) K/mm3 MPV (9.4-12.3) fl Neut % (Auto) (34.0-67.9) % Lymph % (Auto) (21.8-53.1) % [place] % (Auto) (5.3-12.2) % Eos % (Auto) (0.8-7.0) Baso % (Auto) (0.1-1.2) % Neut # (Auto) (1.78-5.38) K/mm3 Lymph # (Auto) (1.32-3.57) K/mm3 [place] # (Auto) (0.30-0.82) K/mm3 Eos # (Auto) (0.04-0.54) K/mm3 Baso # (Auto) (0.01-0.08) K/mm3 Manual Slide Review Sodium (136-145) mEq/L Potassium (3.5-5.1) mEq/L Chloride (98-107) mEq/L Carbon Dioxide (21-32) mEq/L Anion Gap (5-15) BUN (7-18) mg/dL Creatinine (0.7-1.3) mg/dL Est Cr Clr Drug Dosing mL/min Estimated GFR (MDRD) (>60) mL/min BUN/Creatinine Ratio (14-18) Glucose (83-115) mg/dL POC Glucose 77 L 132 H 98 (83-110) mg/dL Lactic Acid (0.4-2.0) mmol/L Calcium (8.5-10.1) mg/dL Magnesium (1.8-2.4) mg/dl 09/10/17 09/10/17 09/10/17 Range/Units 05:05 05:05 05:05 WBC 5.07 (4.23-9.07) K/mm3 RBC 4.13 L (4.63-6.08) M/mm3 Hgb 11.3 L (13.7-17.5) gm/L Hct 35.5 L (40.1-51.0) % MCV 86.0 (79.0-92.2) fl MCH 27.4 (25.7-32.2) pg MCHC 31.8 L (32.2-35.5) g/dl RDW Std Deviation 46.4 H (35.1-43.9) fL Plt Count 155 L (163-337) K/mm3 MPV 11.6 (9.4-12.3) fl Neut % (Auto) 54.6 (34.0-67.9) % Lymph % (Auto) 21.7 L (21.8-53.1) % [place] % (Auto) 16.2 H (5.3-12.2) % Eos % (Auto) 7.1 H (0.8-7.0) Baso % (Auto) 0.2 (0.1-1.2) % Neut # (Auto) 2.77 (1.78-5.38) K/mm3 Lymph # (Auto) 1.10 L (1.32-3.57) K/mm3 [place] # (Auto) 0.82 (0.30-0.82) K/mm3 Eos # (Auto) 0.36 (0.04-0.54) K/mm3 Baso # (Auto) 0.01 (0.01-0.08) K/mm3 Manual Slide Review Normal smear Sodium 138 (136-145) mEq/L Potassium 3.5 (3.5-5.1) mEq/L Chloride 104 (98-107) mEq/L Carbon Dioxide 25 (21-32) mEq/L Anion Gap 12.5 (5-15) BUN 35 H (7-18) mg/dL Creatinine 1.7 H (0.7-1.3) mg/dL Est Cr Clr Drug Dosing 35.21 mL/min Estimated GFR (MDRD) 39 (>60) mL/min BUN/Creatinine Ratio 20.6 H (14-18) Glucose 108 (83-115) mg/dL POC Glucose (83-110) mg/dL Lactic Acid 0.4 (0.4-2.0) mmol/L Calcium 7.8 L (8.5-10.1) mg/dL Magnesium 2.2 (1.8-2.4) mg/dl 09/10/17 Range/Units 06:10 WBC (4.23-9.07) K/mm3 RBC (4.63-6.08) M/mm3 Hgb (13.7-17.5) gm/L Hct (40.1-51.0) % MCV (79.0-92.2) fl MCH (25.7-32.2) pg MCHC (32.2-35.5) g/dl RDW Std Deviation (35.1-43.9) fL Plt Count (163-337) K/mm3 MPV (9.4-12.3) fl Neut % (Auto) (34.0-67.9) % Lymph % (Auto) (21.8-53.1) % [place] % (Auto) (5.3-12.2) % Eos % (Auto) (0.8-7.0) Baso % (Auto) (0.1-1.2) % Neut # (Auto) (1.78-5.38) K/mm3 Lymph # (Auto) (1.32-3.57) K/mm3 [place] # (Auto) (0.30-0.82) K/mm3 Eos # (Auto) (0.04-0.54) K/mm3 Baso # (Auto) (0.01-0.08) K/mm3 Manual Slide Review Sodium (136-145) mEq/L Potassium (3.5-5.1) mEq/L Chloride (98-107) mEq/L Carbon Dioxide (21-32) mEq/L Anion Gap (5-15) BUN (7-18) mg/dL Creatinine (0.7-1.3) mg/dL Est Cr Clr Drug Dosing mL/min Estimated GFR (MDRD) (>60) mL/min BUN/Creatinine Ratio (14-18) Glucose (83-115) mg/dL POC Glucose 104 (83-110) mg/dL Lactic Acid (0.4-2.0) mmol/L Calcium (8.5-10.1) mg/dL Magnesium (1.8-2.4) mg/dl Kashif Results Last 24 Hours: Microbiology 09/08/17 03:22 Aerobic Blood Culture - Preliminary Blood - Venous - Lab Draw NO GROWTH AFTER 2 DAYS Anaerobic Blood Culture - Preliminary NO GROWTH AFTER 2 DAYS 09/08/17 03:15 Aerobic Blood Culture - Preliminary Blood - Venous NO GROWTH AFTER 2 DAYS Anaerobic Blood Culture - Preliminary NO GROWTH AFTER 2 DAYS Med Orders - Current: Current Medications Benzocaine (Hurricaine 20% [place]) 0 ml MUCMEM Q4HR PRN PRN Reason: Pain Last Admin: 09/08/17 10:04 Dose: 1 spray Dextrose/Water (Dextrose 50% In Water) 50 ml IVPUSH ASDIRECTED PRN PRN Reason: Hypoglycemia Last Admin: 09/09/17 17:53 Dose: 25 ml Famotidine (Pepcid) 20 mg IVPUSH BEDTIME [facility] Last Admin: 09/09/17 20:48 Dose: 20 mg Heparin Sodium (Porcine) (Heparin Sodium) 5,000 units SUBCUT Q8H [facility] Last Admin: 09/10/17 05:07 Dose: 5,000 units Hydralazine HCl (Apresoline) 20 mg IVPUSH Q6H PRN PRN Reason: Hypertension Lidocaine HCl (Xylocaine 2% Viscous) 15 ml PO ASDIRECTED PRN PRN Reason: NG placement Last Admin: 09/08/17 10:04 Dose: 15 ml Metoprolol Succinate (Toprol Xl) 50 mg PO DAILY [facility] Last Admin: 09/10/17 08:36 Dose: 50 mg Metoprolol Tartrate (Lopressor) 5 mg IVPUSH Q6H PRN PRN Reason: HR>120 Last Admin: 09/08/17 19:46 Dose: 5 mg Sodium Chloride (Saline Flush) 10 ml FLUSH ASDIRECTED PRN PRN Reason: Keep Vein Open Discontinued Medications Aspirin (Aspirin) 81 mg PO ONETIME ONE Stop: 09/08/17 19:43 Last Admin: 09/08/17 19:51 Dose: 81 mg Diatrizoate Meglum/Diatrizoate Sod (Gastrografin 37%) 90 ml PO ONETIME ONE Stop: 09/08/17 05:01 Last Admin: 09/08/17 05:25 Dose: 90 ml Famotidine (Pepcid) 20 mg IVPUSH ONETIME ONE Stop: 09/08/17 02:33 Last Admin: 09/08/17 02:43 Dose: 20 mg Hydromorphone HCl (Dilaudid) 0.5 mg IVPUSH ONETIME ONE Stop: 09/08/17 03:07 Last Admin: 09/08/17 03:13 Dose: 0.5 mg Sodium Chloride (Normal Saline) 1,000 mls @ 1,000 mls/hr IV ASDIRECTED [facility] Last Admin: 09/08/17 02:41 Dose: 1,000 mls/hr Sodium Chloride (Sodium Chloride 0.45%) 1,000 mls @ 125 mls/hr IV ASDIRECTED [facility] Last Admin: 09/09/17 13:54 Dose: 125 mls/hr Dextrose/Sodium Chloride (Dextrose 5%-1/2 Ns) 1,000 mls @ 75 mls/hr IV ASDIRECTED [facility] Last Admin: 09/09/17 18:46 Dose: 75 mls/hr Lidocaine HCl (Xylocaine 2% Jelly) Confirm Administered Dose 10 ml .ROUTE .STK- MED ONE Stop: 09/08/17 05:40 Last Admin: 09/08/17 05:58 Dose: 10 ml Lidocaine HCl (Xylocaine 4% Top Soln) 3 ml MUCMEM ONETIME ONE Stop: 09/08/17 05:58 Last Admin: 09/08/17 05:50 Dose: 3 ml Metoprolol Succinate (Toprol Xl) 25 mg PO ONETIME ONE Stop: 09/08/17 21:01 Last Admin: 09/08/17 20:35 Dose: Not Given Morphine Sulfate (Morphine) 2 mg IVPUSH ONETIME ONE Stop: 09/08/17 19:36 Last Admin: 09/08/17 19:46 Dose: 2 mg Ondansetron HCl (Zofran) 4 mg IVPUSH ONETIME ONE Stop: 09/08/17 02:33 Last Admin: 09/08/17 02:42 Dose: 4 mg - Exam Quality Assessment: DVT Prophylaxis General: Alert, Oriented, Cooperative, No Acute Distress HEENT: Pupils Equal, Pupils Reactive, EOMI Neck: Supple, Trachea Midline Lungs: Normal Respiratory Effort Cardiovascular: Regular Rate, Regular Rhythm GI/Abdominal Exam: Normal Bowel Sounds, Soft, Non-Tender, No Organomegaly, No Distention (Male) Exam: Deferred Back Exam: Normal Inspection Extremities: Normal Inspection, Normal Range of Motion, Non-Tender, No Pedal Edema Skin: Warm, Dry Neurological: No New Focal Deficit, Normal Gait, Normal Speech Psy/Mental Status: Alert, Normal Affect, Normal Mood - Problem List & Annotations (1) Abdominal cramps SNOMED Code(s): 937824508, 249371932 Code(s): R10.9 - UNSPECIFIED ABDOMINAL PAIN Status: Acute Current Visit: Yes (2) Nausea and vomiting SNOMED Code(s): 32311340 Code(s): R11.2 - NAUSEA WITH VOMITING, UNSPECIFIED Status: Acute Current Visit: Yes Qualifiers: Vomiting type: unspecified Vomiting Intractability: non-intractable Qualified Code(s): R11.2 - Nausea with vomiting, unspecified (3) Small bowel obstruction due to adhesions SNOMED Code(s): 869520625 Code(s): K56.50 - INTESTNL ADHESIONS, UNSP TO PARTIAL VERSUS COMPLETE OBST Status: Acute Priority: Medium Current Visit: Yes (4) Hypertension SNOMED Code(s): 30590751 Code(s): I10 - ESSENTIAL (PRIMARY) HYPERTENSION Status: Acute Current Visit: No Qualifiers: Hypertension type: essential hypertension Qualified Code(s): I10 - Essential (primary) hypertension (5) Partial small bowel obstruction SNOMED Code(s): 266645615 Code(s): K56.69 - OTHER INTESTINAL OBSTRUCTION * DO NOT USE * Status: Acute Priority: High Current Visit: No (6) Renal insufficiency SNOMED Code(s): 944209814, 594627356 Code(s): N28.9 - DISORDER OF KIDNEY AND URETER, UNSPECIFIED Status: Acute Current Visit: No (7) CKD (chronic kidney disease) stage 3, GFR 30-59 ml/min SNOMED Code(s): 080696869 Code(s): N18.3 - CHRONIC KIDNEY DISEASE, STAGE 3 (MODERATE) Status: Chronic Priority: Low Current Visit: No (8) History of nephrectomy SNOMED Code(s): 27052047124253 Code(s): Z90.5 - ACQUIRED ABSENCE OF KIDNEY Status: Chronic Priority: Low Current Visit: No - Problem List Review Problem List Initiated/Reviewed/Updated: Yes - My Orders Last 24 Hours: My Active Orders 09/10/17 Lunch Clear Liquid Diet [DIET] 09/11/17 05:00 BMP [BASIC METABOLIC PANEL,BMP] [CHEM] DAILY CBC WITH AUTO DIFF [HEME] DAILY LACTIC ACID [CHEM] DAILY MAGNESIUM [CHEM] DAILY 09/12/17 05:00 BMP [BASIC METABOLIC PANEL,BMP] [CHEM] DAILY CBC WITH AUTO DIFF [HEME] DAILY LACTIC ACID [CHEM] DAILY MAGNESIUM [CHEM] DAILY 09/13/17 05:00 BMP [BASIC METABOLIC PANEL,BMP] [CHEM] DAILY CBC WITH AUTO DIFF [HEME] DAILY LACTIC ACID [CHEM] DAILY MAGNESIUM [CHEM] DAILY - Plan Plan:: Impression: History of metastatic colon cancer, S/P right hemicolectomy; history of partial small bowel obstruction which resolved conservatively Acute partial SBO; +BM, -Flatus. NGT removed, diet advanced as tolerated. Chronic HTN GERD Glaucoma COPD CKD III Hx of TIA Plan: IVF complete current bag the DC Follow Physical Exam changes/NGT NPO except meds and ice chips; clamp NGT as needed. Gen Surg consult Daily Labs Replace Electrolytes Consult PT/OT/SM (as needed) DVT/GI prophylaxis DC 09/11 if diet is tolerated.
[2017-09-10] MEDS ORDERED: Metoprolol Tartrate 50 MG Tab PO ONE (18:35)
[2017-09-10] MEDS: Famotidine 20 MG/2 ML SDV IVPUSH SCH (20:38)
[2017-09-11] MEDS: Heparin Sodium 5,000 Units/ML Vial SUBCUT SCH ×2 (06:32→14:17)
[2017-09-11 08:33] VITALS: BP 159/78
--- NOTE | 2017-09-11 08:59 | PCM.PN ---
- General Info Date of Service: 09/11/17 Admission Dx/Problem (Free Text): Admission Diagnosis/Problem Admission Diagnosis/Problem Small bowel obstruction Subjective Update: Follow Up - Patient Data Vitals - Most Recent: Last Vital Signs Temp 37.2 C 09/11/17 08:25 Pulse 79 09/11/17 08:52 Resp 26 H 09/11/17 08:25 BP 159/78 H 09/11/17 08:52 Pulse Ox 98 09/11/17 08:25 Weight - Most Recent: 87.543 kg I&O - Last 24 Hours: Intake & Output 09/10/17 09/11/17 09/11/17 22:59 06:59 14:59 Intake Total 1200 400 Output Total 1500 900 Balance -300 -500 Lab Results Last 24 Hours: Laboratory Results - last 24 hr 09/11/17 09/11/17 09/11/17 Range/Units 05:15 05:15 05:15 WBC 4.67 (4.23-9.07) K/mm3 RBC 4.10 L (4.63-6.08) M/mm3 Hgb 11.0 L (13.7-17.5) gm/L Hct 34.9 L (40.1-51.0) % MCV 85.1 (79.0-92.2) fl MCH 26.8 (25.7-32.2) pg MCHC 31.5 L (32.2-35.5) g/dl RDW Std Deviation 44.9 H (35.1-43.9) fL Plt Count 149 L (163-337) K/mm3 MPV 11.0 (9.4-12.3) fl Neut % (Auto) 52.3 (34.0-67.9) % Lymph % (Auto) 27.2 (21.8-53.1) % [place] % (Auto) 13.7 H (5.3-12.2) % Eos % (Auto) 6.4 (0.8-7.0) Baso % (Auto) 0.0 L (0.1-1.2) % Neut # (Auto) 2.44 (1.78-5.38) K/mm3 Lymph # (Auto) 1.27 L (1.32-3.57) K/mm3 [place] # (Auto) 0.64 (0.30-0.82) K/mm3 Eos # (Auto) 0.30 (0.04-0.54) K/mm3 Baso # (Auto) 0.00 L (0.01-0.08) K/mm3 Sodium 140 (136-145) mEq/L Potassium 3.7 (3.5-5.1) mEq/L Chloride 107 (98-107) mEq/L Carbon Dioxide 25 (21-32) mEq/L Anion Gap 11.7 (5-15) BUN 22 H (7-18) mg/dL Creatinine 1.4 H (0.7-1.3) mg/dL Est Cr Clr Drug Dosing 42.75 mL/min Estimated GFR (MDRD) 49 (>60) mL/min BUN/Creatinine Ratio 15.7 (14-18) Glucose 90 (83-115) mg/dL Lactic Acid 0.3 L (0.4-2.0) mmol/L Calcium 8.0 L (8.5-10.1) mg/dL Magnesium 2.1 (1.8-2.4) mg/dl Kashif Results Last 24 Hours: Microbiology 09/08/17 03:22 Aerobic Blood Culture - Preliminary Blood - Venous - Lab Draw NO GROWTH AFTER 3 DAYS Anaerobic Blood Culture - Preliminary NO GROWTH AFTER 3 DAYS 09/08/17 03:15 Aerobic Blood Culture - Preliminary Blood - Venous NO GROWTH AFTER 3 DAYS Anaerobic Blood Culture - Preliminary NO GROWTH AFTER 3 DAYS Med Orders - Current: Current Medications Benzocaine (Hurricaine 20% [place]) 0 ml MUCMEM Q4HR PRN PRN Reason: Pain Last Admin: 09/08/17 10:04 Dose: 1 spray Dextrose/Water (Dextrose 50% In Water) 50 ml IVPUSH ASDIRECTED PRN PRN Reason: Hypoglycemia Last Admin: 09/09/17 17:53 Dose: 25 ml Famotidine (Pepcid) 20 mg IVPUSH BEDTIME [facility] Last Admin: 09/10/17 20:38 Dose: 20 mg Heparin Sodium (Porcine) (Heparin Sodium) 5,000 units SUBCUT Q8H [facility] Last Admin: 09/11/17 06:32 Dose: 5,000 units Hydralazine HCl (Apresoline) 20 mg IVPUSH Q6H PRN PRN Reason: Hypertension Lidocaine HCl (Xylocaine 2% Viscous) 15 ml PO ASDIRECTED PRN PRN Reason: NG placement Last Admin: 09/08/17 10:04 Dose: 15 ml Metoprolol Succinate (Toprol Xl) 100 mg PO DAILY [facility] Last Admin: 09/11/17 08:52 Dose: 100 mg Metoprolol Tartrate (Lopressor) 5 mg IVPUSH Q6H PRN PRN Reason: HR>120 Last Admin: 09/08/17 19:46 Dose: 5 mg Sodium Chloride (Saline Flush) 10 ml FLUSH ASDIRECTED PRN PRN Reason: Keep Vein Open Discontinued Medications Aspirin (Aspirin) 81 mg PO ONETIME ONE Stop: 09/08/17 19:43 Last Admin: 09/08/17 19:51 Dose: 81 mg Diatrizoate Meglum/Diatrizoate Sod (Gastrografin 37%) 90 ml PO ONETIME ONE Stop: 09/08/17 05:01 Last Admin: 09/08/17 05:25 Dose: 90 ml Famotidine (Pepcid) 20 mg IVPUSH ONETIME ONE Stop: 09/08/17 02:33 Last Admin: 09/08/17 02:43 Dose: 20 mg Hydromorphone HCl (Dilaudid) 0.5 mg IVPUSH ONETIME ONE Stop: 09/08/17 03:07 Last Admin: 09/08/17 03:13 Dose: 0.5 mg Sodium Chloride (Normal Saline) 1,000 mls @ 1,000 mls/hr IV ASDIRECTED [facility] Last Admin: 09/08/17 02:41 Dose: 1,000 mls/hr Sodium Chloride (Sodium Chloride 0.45%) 1,000 mls @ 125 mls/hr IV ASDIRECTED [facility] Last Admin: 09/09/17 13:54 Dose: 125 mls/hr Dextrose/Sodium Chloride (Dextrose 5%-1/2 Ns) 1,000 mls @ 75 mls/hr IV ASDIRECTED [facility] Last Admin: 09/09/17 18:46 Dose: 75 mls/hr Lidocaine HCl (Xylocaine 2% Jelly) Confirm Administered Dose 10 ml .ROUTE .STK- MED ONE Stop: 09/08/17 05:40 Last Admin: 09/08/17 05:58 Dose: 10 ml Lidocaine HCl (Xylocaine 4% Top Soln) 3 ml MUCMEM ONETIME ONE Stop: 09/08/17 05:58 Last Admin: 09/08/17 05:50 Dose: 3 ml Metoprolol Succinate (Toprol Xl) 50 mg PO DAILY [facility] Last Admin: 09/10/17 08:36 Dose: 50 mg Metoprolol Succinate (Toprol Xl) 25 mg PO ONETIME ONE Stop: 09/08/17 21:01 Last Admin: 09/08/17 20:35 Dose: Not Given Metoprolol Tartrate (Lopressor) 50 mg PO ONETIME ONE Stop: 09/10/17 18:36 Last Admin: 09/10/17 18:46 Dose: 50 mg Morphine Sulfate (Morphine) 2 mg IVPUSH ONETIME ONE Stop: 09/08/17 19:36 Last Admin: 09/08/17 19:46 Dose: 2 mg Ondansetron HCl (Zofran) 4 mg IVPUSH ONETIME ONE Stop: 09/08/17 02:33 Last Admin: 09/08/17 02:42 Dose: 4 mg - Plan Plan:: Impression: History of metastatic colon cancer, S/P right hemicolectomy; history of partial small bowel obstruction which resolved conservatively Acute partial SBO; +BM, -Flatus. NGT removed, diet advanced as tolerated. Chronic HTN GERD Glaucoma COPD CKD III Hx of TIA Plan: IVF complete current bag the DC Follow Physical Exam changes/NGT NPO except meds and ice chips; clamp NGT as needed. Gen Surg consult Daily Labs Replace Electrolytes Consult PT/OT/SM (as needed) DVT/GI prophylaxis DC 09/11 if diet is tolerated.
[2017-09-11] MEDS ORDERED: Metoprolol Succinate 50 MG Tab.ER PO SCH (09:00)
--- NOTE | 2017-09-11 15:09 | PCM.SN ---
- Free Text/Narrative Note: Patient seen and examined at bedside. He has no acute issues and doing relatively well. He has tolerated regular meal x 2 (breakfast and lunch). He just had a regular bowel movement not too long ago. He expressed willingness to go home so he will be discharged as soon as transportation gets here.
--- NOTE | 2017-09-11 15:23 | PCM.DCSUM1 ---
Discharge Summary - Hospital Course Brief History: 76 year old male with partial SBO, has had recurrence; PMH reportedly includes metastatic colon cancer in remission. The initial occasion was treated with conservative medical management. On this occasion, he presented after experiencing abdominal pain associated with nausea and vomiting. The pain was moderate-severe located in the periumbilical region. He denies fever, chills, symptoms, CP, SOB. he will be admitted to [facility] with telemetry. A general surgery consult has been placed. Code is DNR/DNI. - Discharge Data Discharge Date: 09/11/17 Discharge Disposition: Home, Self-Care 01 Condition: Good - Patient Summary/Data Operative Procedure(s) Performed: None Complications: None Consults: Consultations 09/08/17 06:41 Consult to Physician [CONS] Urgent 09/08/17 13:19 Consult to Physical Therapy [PT Evaluation and Treatment] [CONS] Routine 09/08/17 13:20 Consult to Occupational Therapy [OT Evaluation and Treatment] [CONS] Routine Labs Pending at D/C: None Recommended Follow-up Testing/Procedures: None Planned Operative Procedure(s) after DC: None Hospital Course: Patient was primarily admitted for medical management of partial small bowel obstruction. Generated Gen. surgery was consulted but recommended no additional testing but conservative treatment. The patient was primarily treated with supportive care and intravenous hydration. Slowly he improved on this regimen. His hospital course was uncomplicated. The rest of his chronic medical illness remained stable during this admission. Patient was stable upon discharge. He was advised to resume all home medications and continue with routine home activities without any restrictions. He was for his advice to call his primary care for any questions or concerns after discharge. And most importantly he was advised to come back or seek immediate care should his symptoms persist or get worse. The patient expressed understanding and in agreement with the plans as discussed above. All questions were answered. On the day of discharge his primary care doctor, Dr. Myers, was called and updated regarding discharge care plan. - Patient Instructions Diet: Usual Diet as Tolerated Activity: As Tolerated Driving: Do Not Drive Showering/Bathing: May Shower Notify Provider of: Fever, Increased Pain, Swelling and Redness, Nausea and/or Vomiting Other/Special Instructions: - Please resume all medications as directed. - Call your family doctor for any questions or concerns after discharge. - Follow up with PCP in 1-2 week. - Come back or seek immediate care should your symptoms persist or get worse - Discharge Plan Home Medications: Home Meds Albuterol [Proventil HFA] 2 puff INH Q6H PRN 11/13/15 [History] Sennosides/Docusate Sodium [Senna-Docusate Sodium] 1 tab PO DAILY 06/05/16 [ History] Furosemide [Lasix] 20 mg PO DAILY #30 tablet 06/08/16 [Rx] Aspirin 325 mg PO DAILY 08/01/16 [History] Allopurinol [Zyloprim] 50 mg PO DAILY 03/21/17 [History] Lutein/Minerals/Vit A,C & E [Ocuvite] 1 tab PO DAILY 09/08/17 [History] Metoprolol Succinate 100 mg PO DAILY 09/08/17 [History] Ranitidine HCl 150 mg PO DAILY 09/08/17 [History] Patient Handouts: Small Bowel Obstruction, [id number] Referrals: Brendan Caldera MD [Primary Care Provider] - 09/25/17 9:10 am (Please follow- up with your primary care doctor, Dr. Caldera, on SaturdaySeptember 25 at 0910am. This is your previously scheduled appointment. ) - Discharge Summary/Plan Comment DC Time >30 min.: Yes (35 mins) Discharge Summary/Plan Comment: Discharge to Home - General Info Date of Service: 09/11/17 Admission Dx/Problem (Free Text: Admission Diagnosis/Problem Admission Diagnosis/Problem Small bowel obstruction Subjective Update: Follow Up Functional Status: Reports: Pain Controlled, Tolerating Diet, Ambulating, Urinating. Denies: New Symptoms - Review of Systems General: Denies: Fever, Weakness, Fatigue, Malaise, Chills HEENT: Reports: No Symptoms Pulmonary: Denies: Shortness of Breath Cardiovascular: Denies: Chest Pain Gastrointestinal: Reports: Flatus. Denies: Abdominal Pain, Constipation, Decreased Appetite, Diarrhea, Difficulty Swallowing, Hematochezia, Melena, Nausea, Vomiting Genitourinary: Reports: No Symptoms Musculoskeletal: Reports: No Symptoms Skin: Denies: Rash Neurological: Denies: Confusion, Difficulty Walking, Weakness, Gait Disturbance Psychiatric: Denies: Depression, Anxiety, Agitation, Hallucinations Systems Review Comment: No overnight or acute issues. He is doing just fine. He has no GI issues and tolerated regular meals. - Patient Data Vitals - Most Recent: Last Vital Signs Temp 37.2 C 09/11/17 08:25 Pulse 79 09/11/17 08:52 Resp 26 H 09/11/17 08:25 BP 159/78 H 09/11/17 08:52 Pulse Ox 98 09/11/17 08:25 Weight - Most Recent: 87.543 kg I&O - Last 24 hours: Intake & Output 09/11/17 09/11/17 09/11/17 06:59 14:59 22:59 Intake Total 400 540 Output Total 900 Balance -500 540 Lab Results - Last 24 hrs: Laboratory Results - last 24 hr 09/11/17 09/11/17 09/11/17 Range/Units 05:15 05:15 05:15 WBC 4.67 (4.23-9.07) K/mm3 RBC 4.10 L (4.63-6.08) M/mm3 Hgb 11.0 L (13.7-17.5) gm/L Hct 34.9 L (40.1-51.0) % MCV 85.1 (79.0-92.2) fl MCH 26.8 (25.7-32.2) pg MCHC 31.5 L (32.2-35.5) g/dl RDW Std Deviation 44.9 H (35.1-43.9) fL Plt Count 149 L (163-337) K/mm3 MPV 11.0 (9.4-12.3) fl Neut % (Auto) 52.3 (34.0-67.9) % Lymph % (Auto) 27.2 (21.8-53.1) % Granite % (Auto) 13.7 H (5.3-12.2) % Eos % (Auto) 6.4 (0.8-7.0) Baso % (Auto) 0.0 L (0.1-1.2) % Neut # (Auto) 2.44 (1.78-5.38) K/mm3 Lymph # (Auto) 1.27 L (1.32-3.57) K/mm3 Granite # (Auto) 0.64 (0.30-0.82) K/mm3 Eos # (Auto) 0.30 (0.04-0.54) K/mm3 Baso # (Auto) 0.00 L (0.01-0.08) K/mm3 Sodium 140 (136-145) mEq/L Potassium 3.7 (3.5-5.1) mEq/L Chloride 107 (98-107) mEq/L Carbon Dioxide 25 (21-32) mEq/L Anion Gap 11.7 (5-15) BUN 22 H (7-18) mg/dL Creatinine 1.4 H (0.7-1.3) mg/dL Est Cr Clr Drug Dosing 42.75 mL/min Estimated GFR (MDRD) 49 (>60) mL/min BUN/Creatinine Ratio 15.7 (14-18) Glucose 90 (83-115) mg/dL Lactic Acid 0.3 L (0.4-2.0) mmol/L Calcium 8.0 L (8.5-10.1) mg/dL Magnesium 2.1 (1.8-2.4) mg/dl TINO Results - Last 24 hrs: Microbiology 09/08/17 03:22 Aerobic Blood Culture - Preliminary Blood - Venous - Lab Draw NO GROWTH AFTER 3 DAYS Anaerobic Blood Culture - Preliminary NO GROWTH AFTER 3 DAYS 09/08/17 03:15 Aerobic Blood Culture - Preliminary Blood - Venous NO GROWTH AFTER 3 DAYS Anaerobic Blood Culture - Preliminary NO GROWTH AFTER 3 DAYS Med Orders - Current: Current Medications Benzocaine (Hurricaine 20% [place]) 0 ml MUCMEM Q4HR PRN PRN Reason: Pain Last Admin: 09/08/17 10:04 Dose: 1 spray Dextrose/Water (Dextrose 50% In Water) 50 ml IVPUSH ASDIRECTED PRN PRN Reason: Hypoglycemia Last Admin: 09/09/17 17:53 Dose: 25 ml Famotidine (Pepcid) 20 mg IVPUSH BEDTIME SHANNON Last Admin: 09/10/17 20:38 Dose: 20 mg Heparin Sodium (Porcine) (Heparin Sodium) 5,000 units SUBCUT Q8H SHANNON Last Admin: 09/11/17 14:17 Dose: 5,000 units Heparin Sodium (Porcine) (Heparin Lock Flush 100 Units/Ml) 500 units FLUSH ASDIRECTED ONE Stop: 09/11/17 15:11 Hydralazine HCl (Apresoline) 20 mg IVPUSH Q6H PRN PRN Reason: Hypertension Lidocaine HCl (Xylocaine 2% Viscous) 15 ml PO ASDIRECTED PRN PRN Reason: NG placement Last Admin: 09/08/17 10:04 Dose: 15 ml Metoprolol Succinate (Toprol Xl) 100 mg PO DAILY [facility] Last Admin: 09/11/17 08:52 Dose: 100 mg Metoprolol Tartrate (Lopressor) 5 mg IVPUSH Q6H PRN PRN Reason: HR>120 Last Admin: 09/08/17 19:46 Dose: 5 mg Sodium Chloride (Saline Flush) 10 ml FLUSH ASDIRECTED PRN PRN Reason: Keep Vein Open Discontinued Medications Aspirin (Aspirin) 81 mg PO ONETIME ONE Stop: 09/08/17 19:43 Last Admin: 09/08/17 19:51 Dose: 81 mg Diatrizoate Meglum/Diatrizoate Sod (Gastrografin 37%) 90 ml PO ONETIME ONE Stop: 09/08/17 05:01 Last Admin: 09/08/17 05:25 Dose: 90 ml Famotidine (Pepcid) 20 mg IVPUSH ONETIME ONE Stop: 09/08/17 02:33 Last Admin: 09/08/17 02:43 Dose: 20 mg Hydromorphone HCl (Dilaudid) 0.5 mg IVPUSH ONETIME ONE Stop: 09/08/17 03:07 Last Admin: 09/08/17 03:13 Dose: 0.5 mg Sodium Chloride (Normal Saline) 1,000 mls @ 1,000 mls/hr IV ASDIRECTED [facility] Last Admin: 09/08/17 02:41 Dose: 1,000 mls/hr Sodium Chloride (Sodium Chloride 0.45%) 1,000 mls @ 125 mls/hr IV ASDIRECTED [facility] Last Admin: 09/09/17 13:54 Dose: 125 mls/hr Dextrose/Sodium Chloride (Dextrose 5%-1/2 Ns) 1,000 mls @ 75 mls/hr IV ASDIRECTED [facility] Last Admin: 09/09/17 18:46 Dose: 75 mls/hr Lidocaine HCl (Xylocaine 2% Jelly) Confirm Administered Dose 10 ml .ROUTE .STK- MED ONE Stop: 09/08/17 05:40 Last Admin: 09/08/17 05:58 Dose: 10 ml Lidocaine HCl (Xylocaine 4% Top Soln) 3 ml MUCMEM ONETIME ONE Stop: 09/08/17 05:58 Last Admin: 09/08/17 05:50 Dose: 3 ml Metoprolol Succinate (Toprol Xl) 50 mg PO DAILY [facility] Last Admin: 09/10/17 08:36 Dose: 50 mg Metoprolol Succinate (Toprol Xl) 25 mg PO ONETIME ONE Stop: 09/08/17 21:01 Last Admin: 09/08/17 20:35 Dose: Not Given Metoprolol Tartrate (Lopressor) 50 mg PO ONETIME ONE Stop: 09/10/17 18:36 Last Admin: 09/10/17 18:46 Dose: 50 mg Morphine Sulfate (Morphine) 2 mg IVPUSH ONETIME ONE Stop: 09/08/17 19:36 Last Admin: 09/08/17 19:46 Dose: 2 mg Ondansetron HCl (Zofran) 4 mg IVPUSH ONETIME ONE Stop: 09/08/17 02:33 Last Admin: 09/08/17 02:42 Dose: 4 mg - Exam General: Reports: Alert, Oriented, Cooperative, No Acute Distress HEENT: Reports: Pupils Equal, Pupils Reactive, EOMI, Mucous Membr. Moist/[place] Neck: Reports: Supple, No Thyromegaly Lungs: Reports: Clear to Auscultation, Normal Respiratory Effort Cardiovascular: Reports: Regular Rate, Regular Rhythm GI/Abdominal Exam: Normal Bowel Sounds, Soft, Non-Tender, No Organomegaly, No Distention, No Abnormal Bruit, No Mass (Male) Exam: Deferred Rectal (Males) Exam: Deferred Back Exam: Reports: Normal Inspection, Decreased Range of Motion Extremities: Normal Inspection, Normal Range of Motion, Non-Tender, No Pedal Edema, Normal Capillary Refill Skin: Reports: Warm, Dry, Intact Neurological: Reports: No New Focal Deficit Psy/Mental Status: Reports: Alert, Normal Affect, Normal Mood
== END 2017-09-11 16:30 | disposition home or self-care (01) | DRG 390 ==
LOC: JD.ED 02:06 → JD.MS 06:13
PROVIDERS: ADMIT Internal Medicine Cardiovascular Disease; ATTEND Internal Medicine Cardiovascular Disease
PROC: 0D9670Z Drainage of Stomach with Drainage Device, Via Natural or Artificial Opening (ICD-10-PCS; principal; 2017-09-08)
DX: K56.51 Intestinal adhesions [bands], with partial obstruction (principal); I12.9 Hypertensive chronic kidney disease with stage 1 through stage 4 chronic kidney disease, or unspecified chronic kidney disease; N18.9 Chronic kidney disease, unspecified; N18.3 Chronic kidney disease, stage 3 (moderate); M19.90 Unspecified osteoarthritis, unspecified site; K21.9 Gastro-esophageal reflux disease without esophagitis; J44.9 Chronic obstructive pulmonary disease, unspecified; J45.998 Other asthma; F32.9 Major depressive disorder, single episode, unspecified; H54.7 Unspecified visual loss; R12 Heartburn; H40.9 Unspecified glaucoma; J32.9 Chronic sinusitis, unspecified; L40.9 Psoriasis, unspecified; N28.9 Disorder of kidney and ureter, unspecified; R53.81 Other malaise; R53.1 Weakness; Z66 Do not resuscitate; Z87.891 Personal history of nicotine dependence; Z85.038 Personal history of other malignant neoplasm of large intestine; Z92.21 Personal history of antineoplastic chemotherapy; Z90.49 Acquired absence of other specified parts of digestive tract; Z90.5 Acquired absence of kidney; Z86.73 Personal history of transient ischemic attack (TIA), and cerebral infarction without residual deficits; Z88.1 Allergy status to other antibiotic agents; R11.2 Nausea with vomiting, unspecified; R10.9 Unspecified abdominal pain; Z88.0 Allergy status to penicillin; Z88.2 Allergy status to sulfonamides; Z88.8 Allergy status to other drugs, medicaments and biological substances; Z79.82 Long term (current) use of aspirin; Z79.899 Other long term (current) drug therapy
CPT/HCPCS: 36415; 74019; 74176; 80053; 83605; 83690; 85025; 87040 ×2; 96361; 96374; 96375; 99285; J1170; J2405; J7040; Q9963; 80048; 82962; 83735; 84484; 93005; 97161-GP; 97165-GO; A9270-GY; J1642; J1644; J2270; J3490; J7030; J7042; J7060

== ENCOUNTER → 2018-02-14 | Day surgery (SDC) | payer MEDICARE, BC ==
[~2018-02-14] MED LIST: Lactated Ringers 1,000 ML IV SCH; Lidocaine 1% 4 ML ONE; Lidocaine 1%/Sod Bicarbonate in NS 8.4% 1 ML Syringe IDERM PRN; Propofol 200 MG/20 ML SDV ONE; Sodium Chloride 0.9% 10 ML Syringe FLUSH PRN; fentaNYL 100 MCG/2 ML SDV ONE
--- NOTE | 2018-02-14 09:14 | PCM.PREANE ---
Preanesthetic Assessment - Procedure Proposed Procedure: Diagnostic EGD - Anesthesia/Transfusion/Family Hx Anesthesia History: Prior Anesthesia Reaction Family History of Anesthesia Reaction: No Transfusion History: No Prior Transfusion(s) Additional History: chronic kidney disease, colon/liver CA, HX of trach/PEG, VRE+ - Review of Systems Pulmonary: Shortness of Breath, Other (COPD, ASTHMA) Cardiovascular: Other (HTN, ) Gastrointestinal: Other (PUD, Occ GERD) Neurological: Other (TIA) Other: Reports: Depression - Physical Assessment NPO Status Date: 02/14/18 NPO Status Time: 22:00 O2 Sat by Pulse Oximetry: 97 Respiratory Rate: 16 Vital Signs: Last Vital Signs Temp 37.1 C 02/14/18 08:35 Pulse 58 L 02/14/18 08:35 Resp 16 02/14/18 08:35 BP 165/72 H 02/14/18 08:35 Pulse Ox 97 02/14/18 08:35 Height: 1.73 m Weight: 84.822 kg ASA Class: 3 Mental Status: Alert & Oriented x3 Airway Class: Mallampati = 3 Dentition: Reports: Dentures (upper and lower ) Thyro-Mental Finger Breadths: 3 Mouth Opening Finger Breadths: 3 ROM/Head Extension: Other Lungs: Clear to Auscultation, Normal Respiratory Effort Cardiovascular: Regular Rate, Regular Rhythm - Allergies Allergies/Adverse Reactions: Allergies Allergy/AdvReac Type Severity Reaction Status Date / Time azithromycin Allergy Anaphylactic Verified 02/13/18 11:26 Shock chlorhexidine Allergy Cannot Verified 02/13/18 11:26 Remember gatifloxacin [From Tequin] Allergy Anaphylactic Verified 02/13/18 11:26 Shock lansoprazole [From Prevacid] Allergy Anaphylactic Verified 02/13/18 11:26 Shock omeprazole [From Prilosec] Allergy Cannot Verified 02/13/18 11:26 Remember Penicillins Allergy Anaphylactic Verified 02/13/18 11:26 Shock Sulfa (Sulfonamide Allergy Rash Verified 02/13/18 11:26 Antibiotics) - Blood Blood Available: No Product(s) Available: None - Anesthesia Plan Beta Pritesh: Metoprolol Med Last Dose Date: 02/14/18 Med Last Dose Time: 07:15 - Acknowledgements Anesthesia Type Planned: MAC Pt an Appropriate Candidate for the Planned Anesthesia: Yes Alternatives and Risks of Anesthesia Discussed w Pt/Guardian: Yes Pt/Guardian Understands and Agrees with Anesthesia Plan: Yes PreAnesthesia Questionnaire HEENT History: Reports: Glaucoma, Impaired Vision, Macular Degeneration, Sinusitis, Other (See Below) Other HEENT History: wears eyeglasses, has dentures Cardiovascular History: Reports: Hypertension Respiratory History: Reports: Bronchitis, Recurrent, COPD, SOB Other Respiratory History: stress asthma Gastrointestinal History: Reports: PUD, Other (See Below) Other Gastrointestinal History: esophagitis, liver mass, dysphagia, ileus, peg tube placement, small bowel obstruction Genitourinary History: Reports: Chronic Renal Insuffiency Other Genitourinary History: Rt nephrectomy [employer] History: Reports: None Musculoskeletal History: Reports: Arthritis, Other (See Below) Other Musculoskeletal History: dupuytren's contracture Neurological History: Reports: TIA Other Neuro History: ?TIAs many years ago Psychiatric History: Reports: Depression Hematologic History: Reports: None Immunologic History: Reports: None Oncologic (Cancer) History: Reports: Colon, Liver, Metastatic, Renal Other Oncologic History: off of chemo for the past 9 months, with james cath L chest Dermatologic History: Reports: Psoriasis - Infectious Disease History Infectious Disease History: Reports: Measles, Mumps - Past Surgical History Head Surgeries/Procedures: Reports: None HEENT Surgical History: Reports: Cataract Surgery Other HEENT Surgeries/Procedures: Bilateral cataract, sinus sx to right nare Cardiovascular Surgical History: Reports: Vascular Surgery Respiratory Surgical History: Other Respiratory Surgeries/Procedures: right lung resection in 1999, bronchoscopy broch stents GI Surgical History: Reports: Appendectomy, Cholecystectomy, Colonoscopy, Colostomy, EGD, Other (See Below) Other GI Surgeries/Procedures: cyst removed from liver 08/13/17, colectomy and colostomy Female Surgical History: Reports: Other (See Below) Male Surgical History: Reports: Nephrectomy Other Male Surgeries/Procedures: right kidney removed Endocrine Surgical History: Reports: None Neurological Surgical History: Reports: None Musculoskeletal Surgical History: Reports: Other (See Below) Other Musculoskeletal Surgeries/Procedures:: left ankle surgery 1978 Oncologic Surgical History: Reports: None Dermatological Surgical History: Reports: Skin Biopsy - SUBSTANCE USE Smoking Status *Q: Former Smoker Recreational Drug Use History: No - HOME MEDS Home Medications: Home Meds Albuterol [Proventil HFA] 2 puff INH Q6H PRN 11/13/15 [History] Sennosides/Docusate Sodium [Senna-Docusate Sodium] 1 tab PO DAILY 06/05/16 [ History] Furosemide [Lasix] 20 mg PO DAILY #30 tablet 06/08/16 [Rx] Aspirin 325 mg PO BID 08/01/16 [History] Allopurinol [Zyloprim] 50 mg PO DAILY 03/21/17 [History] Metoprolol Succinate 100 mg PO DAILY 09/08/17 [History] Ranitidine HCl 150 mg PO DAILY 09/08/17 [History] Acetaminophen [Tylenol Extra Strength] 500 mg PO Q6H PRN 02/13/18 [History] Hydrocortisone 1 dose TOP BID 02/13/18 [History] Multivitamin [Poly-Vitamin] 1 tab PO DAILY 02/13/18 [History] Olopatadine [Patanol 0.1% Ophth Soln] 1 drop EYEBOTH BID 02/13/18 [History] Ondansetron HCl [Zofran] 4 mg PO Q8H PRN 02/13/18 [History] - CURRENT (IN HOUSE) MEDS Current Meds: Current Medications Lactated Ringer's (Ringers, Lactated) 1,000 mls @ 125 mls/hr IV ASDIRECTED SHANNON Stop: 02/14/18 23:00 Lidocaine/Sodium Bicarbonate (Buffered Lidocaine 1% In Ns 8.4%) 0.25 ml IDERM ONETIME PRN PRN Reason: Prior to IV Start Stop: 02/14/18 18:00 Sodium Chloride (Saline Flush) 10 ml FLUSH ASDIRECTED PRN PRN Reason: Keep Vein Open Stop: 02/14/18 18:00 Discontinued Medications Fentanyl (Sublimaze) Confirm Administered Dose 100 mcg .ROUTE .STK-MED ONE Stop: 02/14/18 08:40 Lactated Ringer's (Ringers, Lactated) 1,000 mls @ 125 mls/hr IV ASDIRECTED SHANNON Stop: 01/31/18 23:00 Lidocaine HCl (Xylocaine-Mpf 1%) Confirm Administered Dose 4 mls @ as directed .ROUTE .STK-MED ONE Stop: 02/14/18 08:42 Lidocaine/Sodium Bicarbonate (Buffered Lidocaine 1% In Ns 8.4%) 0.25 ml IDERM ONETIME PRN PRN Reason: Prior to IV Start Stop: 01/31/18 18:00 Propofol (Diprivan 20 Ml) Confirm Administered Dose 200 mg .ROUTE .STK-MED ONE Stop: 02/14/18 08:40 Sodium Chloride (Saline Flush) 10 ml FLUSH ASDIRECTED PRN PRN Reason: Keep Vein Open Stop: 01/31/18 18:00
--- NOTE | 2018-02-14 10:06 | PCM.OPNOTE ---
- General Post-Op/Procedure Note Date of Surgery/Procedure: 02/14/18 Operative Procedure(s): EGD with biopsy Findings: EGD with gastritis and bilious regurgitation Pre Op Diagnosis: dysphagia Post-Op Diagnosis: dysphagia Anesthesia Technique: MAC Primary Surgeon: Tova Allred Anesthesia Provider: Keenan Khoury Pathology: 1. Antral biopsies 2. GE junction biopsies Output, Urine Amount: 0 EBL in mLs: 0 Complications: none apparent Condition: Good
--- NOTE | 2018-02-14 10:08 | PCM48HPAN ---
Post Anesthesia Note - EVALUATION WITHIN 48HRS OF ANESTHETIC Vital Signs in Normal Range: Yes Patient Participated in Evaluation: Yes Respiratory Function Stable: Yes Airway Patent: Yes Cardiovascular Function Stable: Yes Hydration Status Stable: Yes Pain Control Satisfactory: Yes Nausea and Vomiting Control Satisfactory: Yes Mental Status Recovered: Yes Pulse Rate: 61 SaO2: 97 Resp Rate: 18 Temperature: 36.7 C Blood Pressure: 108/70
--- NOTE | 2018-02-14 10:19 | PCM.PRNOTE ---
- Free Text/Narrative Note: Operative Report Date of procedure: February 14, 2018 Preoperative diagnosis: . Dysphagia Postoperative diagnosis: . Same Surgeon: Tova Allred M.D. Procedure: EGD with biopsy Anesthesia: MAC Anesthesiologist: Keenan Khoury CRNA IV fluids: See anesthesia record Estimated blood loss: 0 mL Specimens: 1. Antral biopsies 2. GE junction. Biopsies Indication: The patient is an 77 -year-old gentleman who presented with dysphagia. The patient has a history of esophagitis with esophageal stricture, he had a dilation done previously. The patient's main complaint was recurrent dysphagia. The patient was consented for an EGD with intervention. Risk of bleeding and perforation were discussed. I told the patient that if I could easily admit the scope, we would not proceed with a dilation as this would be repeat dilation and the risk of perforation was not acceptable for current location and resources. The patient's consent was obtained Description of the procedure: The patient was taken to the endoscopy suite and placed on hemodynamic monitoring. The nurse bee farmer induced MAC anesthesia. A bite block was placed. The patient was positioned in the left lateral decubitus position. A timeout was performed. The endoscope was gently placed into the mouth to the back of the pharynx and introduced into the esophagus. The scope was gently advanced under direct visualization down to the level of the lower esophageal sphincter. The Z line was noted at 39 cm from the mouth. There was pooling of thick bilious secretion at the level of the GE junction within the esophagus. The stomach was then entered. Normal rugal folds were noted. The scope was advanced into the antrum. We noted evidence of gastritis, and this tissue was biopsied. There were bilious secretions pooling in this area with some regurgitation of bilious secretions through the pylorus. The pylorus was then entered and the scope was advanced through the bulb of the duodenum. However, the scope would not pass into the second portion of the duodenum. There were no ulcerations in the portion of the duodenum that was visualized. The scope was then retroflexed in the cardia and fundus were investigated. There is no evidence of any hiatal hernia. Again, there was pooling of thick bilious secretions pooling in the fundus. No other abnormalities were noted. The scope was then withdrawn while inspecting the esophagus. There was some esophagitis at the GE junction. Biopsies were taken. The procedure was terminated. the patient tolerated the procedure well without any evidence of complications. Instructions: The patient for be discharged home after sufficient recovery was completed. He may resume usual diet. We will follow up the results of the biopsies and have the patient return to my office for further discussion of additional work up as desired. Tova Allred MD General Surgery
[2018-02-14 11:40] VITALS: BP 147/80
== END | disposition home or self-care (01) ==
LOC: JD.SDS 08:26
PROVIDERS: ATTEND Surgery
DX: K20.9 Esophagitis, unspecified (principal); K21.9 Gastro-esophageal reflux disease without esophagitis; I10 Essential (primary) hypertension; M72.0 Palmar fascial fibromatosis [Dupuytren]; C18.9 Malignant neoplasm of colon, unspecified; C78.7 Secondary malignant neoplasm of liver and intrahepatic bile duct; N17.9 Acute kidney failure, unspecified; Z79.899 Other long term (current) drug therapy; Z88.0 Allergy status to penicillin; Z88.1 Allergy status to other antibiotic agents; Z88.2 Allergy status to sulfonamides; Z88.8 Allergy status to other drugs, medicaments and biological substances; Z98.890 Other specified postprocedural states; Z87.891 Personal history of nicotine dependence
CPT/HCPCS: 43239; J1642; J2704; J3010; J7120; 00731; J2001

== ENCOUNTER 2018-02-21 13:10 | Emergency (ER) | payer MEDICARE, BC ==
[2018-02-21 13:20] VITALS: BP 159/77
--- NOTE | 2018-02-21 14:20 | EDM.PDOC ---
ED HPI GENERAL MEDICAL PROBLEM - General Chief Complaint: General Stated Complaint: FOOD STUCK IN THROAT Time Seen by Provider: 02/21/18 14:08 - History of Present Illness INITIAL COMMENTS - FREE TEXT/NARRATIVE: This is a 77-year-old male accompanied by his presented to the emergency department for evaluation of food bolus. He stated that he had ham for lunch and he felt that there is a piece of ham was stuck in his lower part of esophagus. He had these issues in the past that he had endoscopy to release. Currently he is not complaining of any pain or discomfort at esophagus or epigastric region. He further stated that he is not having any belching, nausea or abdominal cramps. He denies any medications or non-pharmacological therapy used to alleviate symptoms prior to arrival. He denies any other concerns at this time. Upper Abdomen Pain Score (Numeric/FACES): 4 - Related Data Allergies Allergy/AdvReac Type Severity Reaction Status Date / Time azithromycin Allergy Anaphylactic Verified 02/14/18 09:22 Shock chlorhexidine Allergy Cannot Verified 02/14/18 09:22 Remember gatifloxacin [From Tequin] Allergy Anaphylactic Verified 02/14/18 09:22 Shock lansoprazole [From Prevacid] Allergy Anaphylactic Verified 02/14/18 09:22 Shock omeprazole [From Prilosec] Allergy Cannot Verified 02/14/18 09:22 Remember Penicillins Allergy Anaphylactic Verified 02/14/18 09:22 Shock Sulfa (Sulfonamide Allergy Rash Verified 02/14/18 09:22 Antibiotics) Home Meds: Home Meds Albuterol [Proventil HFA] 2 puff INH Q6H PRN 11/13/15 [History] Sennosides/Docusate Sodium [Senna-Docusate Sodium] 1 tab PO DAILY 06/05/16 [ History] Furosemide [Lasix] 20 mg PO DAILY #30 tablet 06/08/16 [Rx] Aspirin 325 mg PO BID 08/01/16 [History] Allopurinol [Zyloprim] 50 mg PO DAILY 03/21/17 [History] Metoprolol Succinate 100 mg PO DAILY 09/08/17 [History] Ranitidine HCl 150 mg PO DAILY 09/08/17 [History] Acetaminophen [Tylenol Extra Strength] 500 mg PO Q6H PRN 02/13/18 [History] Hydrocortisone 1 dose TOP BID 02/13/18 [History] Multivitamin [Poly-Vitamin] 1 tab PO DAILY 02/13/18 [History] Olopatadine [Patanol 0.1% Ophth Soln] 1 drop EYEBOTH BID 02/13/18 [History] Ondansetron HCl [Zofran] 4 mg PO Q8H PRN 02/13/18 [History] Past Medical History HEENT History: Reports: Glaucoma, Impaired Vision, Macular Degeneration, Sinusitis, Other (See Below) Other HEENT History: wears eyeglasses, has dentures Cardiovascular History: Reports: Hypertension Respiratory History: Reports: Bronchitis, Recurrent, COPD, SOB Other Respiratory History: stress asthma Gastrointestinal History: Reports: PUD, Other (See Below) Other Gastrointestinal History: esophagitis, liver mass, dysphagia, ileus, peg tube placement, small bowel obstruction Genitourinary History: Reports: Chronic Renal Insuffiency Other Genitourinary History: Rt nephrectomy [employer] History: Reports: None Musculoskeletal History: Reports: Arthritis, Other (See Below) Other Musculoskeletal History: dupuytren's contracture Neurological History: Reports: TIA Other Neuro History: ?TIAs many years ago Psychiatric History: Reports: Depression Hematologic History: Reports: None Immunologic History: Reports: None Oncologic (Cancer) History: Reports: Colon, Liver, Metastatic, Renal Other Oncologic History: off of chemo for the past 9 months, with james cath L chest Dermatologic History: Reports: Psoriasis - Infectious Disease History Infectious Disease History: Reports: Measles, Mumps - Past Surgical History Head Surgeries/Procedures: Reports: None HEENT Surgical History: Reports: Cataract Surgery Other HEENT Surgeries/Procedures: Bilateral cataract, sinus sx to right nare Cardiovascular Surgical History: Reports: Vascular Surgery Other Respiratory Surgeries/Procedures: right lung resection in 1999, bronchoscopy broch stents GI Surgical History: Reports: Appendectomy, Cholecystectomy, Colonoscopy, Colostomy, EGD, Other (See Below) Other GI Surgeries/Procedures: cyst removed from liver 08/13/17, colectomy and colostomy Male Surgical History: Reports: Nephrectomy Other Male Surgeries/Procedures: right kidney removed Endocrine Surgical History: Reports: None Neurological Surgical History: Reports: None Musculoskeletal Surgical History: Reports: Other (See Below) Other Musculoskeletal Surgeries/Procedures:: left ankle surgery 1978 Oncologic Surgical History: Reports: None Dermatological Surgical History: Reports: Skin Biopsy Social & Family History - Family History Family Medical History: Noncontributory Other Oncologic Family History: aunt had brain cancer - Tobacco Use Smoking Status *Q: Former Smoker Used Tobacco, but Quit: Yes Month/Year Tobacco Last Used: 18 yr - Caffeine Use Caffeine Use: Reports: Coffee, Soda, Tea Other Caffeine Use: occasional - Recreational Drug Use Recreational Drug Use: No - Living Situation & Occupation Living situation: Reports: , with Spouse Occupation: Retired ED ROS GENERAL - Review of Systems Review Of Systems: ROS reveals no pertinent complaints other than HPI. ED EXAM, GENERAL - Physical Exam Exam: See Below Exam Limited By: No Limitations General Appearance: Alert, WD/WN, No Apparent Distress Nose: Normal Inspection, Normal Mucosa, No Blood Throat/Mouth: Normal Inspection, Normal Lips, Normal Teeth, Normal Gums, Normal Oropharynx, Normal Voice, No Airway Compromise Head: Atraumatic, Normocephalic Neck: Normal Inspection, Supple, Full Range of Motion Respiratory/Chest: No Respiratory Distress, Lungs Clear, Normal Breath Sounds, No Accessory Muscle Use, Chest Non-Tender Cardiovascular: Normal Peripheral Pulses, Regular Rate, Rhythm GI/Abdominal: Normal Bowel Sounds, Soft, Non-Tender, No Organomegaly, No Distention Extremities: Normal Inspection, Normal Range of Motion, Normal Capillary Refill Neurological: Alert, Oriented, No Motor/Sensory Deficits Psychiatric: Normal Affect, Normal Mood Skin Exam: Warm, Dry, Intact, Normal Color, No Rash Course - Vital Signs Last Recorded V/S: Last Vital Signs Temp 36.7 C 02/21/18 13:18 Pulse 67 02/21/18 13:18 Resp 20 02/21/18 13:18 BP 159/77 H 02/21/18 13:18 Pulse Ox 98 02/21/18 13:18 - Re-Assessments/Exams Free Text/Narrative Re-Assessment/Exam: 02/21/18 14:10 Patient was given a few sips of water in the emergency department, which he stated that alleviated his blockage in the lower part of the esophagus. Currently he denies any feeling of food bolus or stuck piece of ham in his lower part of esophagus. He is able to drink glass of water and juice in the emergency department without any belching, vomiting, or inability to tolerate fluid 02/21/18 14:19 Patient is ready for discharge at this time. Departure - Departure Time of Disposition: 14:19 Disposition: Home, Self-Care 01 Condition: Good Clinical Impression: Food impaction of esophagus - Discharge Information Referrals: Brendan Caldera MD [Primary Care Provider] - Forms: ED Department Discharge Additional Instructions: Patient has been advised to eat slowly and chew all the food particle completely before swallowing. Also advised to drink liquid in between small amount of food in order to prevent any food boluses.
== END 2018-02-21 14:28 | disposition home or self-care (01) ==
LOC: JD.ED 13:10
DX: T18.128A Food in esophagus causing other injury, initial encounter (principal); I12.9 Hypertensive chronic kidney disease with stage 1 through stage 4 chronic kidney disease, or unspecified chronic kidney disease; N18.9 Chronic kidney disease, unspecified; Z87.891 Personal history of nicotine dependence; Z79.899 Other long term (current) drug therapy; Z79.82 Long term (current) use of aspirin; Z88.2 Allergy status to sulfonamides; Z88.0 Allergy status to penicillin; Z88.1 Allergy status to other antibiotic agents
CPT/HCPCS: 99283; 99284

== ENCOUNTER 2018-09-26 14:07 | Emergency (ER) | payer MEDICARE, BC ==
[2018-09-26 14:18] VITALS: BP 148/89
--- NOTE | 2018-09-26 15:01 | EDM.PDOC ---
ED HPI GENERAL MEDICAL PROBLEM - General Chief Complaint: ENT Problem Stated Complaint: PIECE OF FOOD LODGED IN ESOPHAGUS Time Seen by Provider: 09/26/18 14:18 Source of Information: Reports: Patient, RN Notes Reviewed History Limitations: Reports: No Limitations - History of Present Illness INITIAL COMMENTS - FREE TEXT/NARRATIVE: The patient states that he was eating chicken fried steak around 11:30 to noon today, when he developed the sensation of having food getting stuck in his lower esophagus. He states that he has had the same sensation 3 or 4 times in the past, always with eating meat, and that they have always cleared after he has been given some medicine (likely glucagon) in the ER. He has undergone 2 or 3 EGDs, and tells me that no strictures were found. The patient has a history of metastatic colon cancer, however, status post a hemicolectomy and radiation therapy. The patient suspects that there may be some damage to his distal esophagus from the radiation. The patient states that when he has had esophageal food impactions in the past, he was unable to drink any fluids, because they would immediately regurgitate back up, however, he states that just prior to my entering his exam room, the sensation resolved, and that he can now drink water without difficulty. The patient's PCP is Dr. Brendan Caldera. His Colorectal Surgeon is Dr. Laurent Shoemaker. Throat Pain Score (Numeric/FACES): 6 - Related Data Allergies Allergy/AdvReac Type Severity Reaction Status Date / Time azithromycin Allergy Anaphylactic Verified 02/14/18 09:22 Shock chlorhexidine Allergy Cannot Verified 02/14/18 09:22 Remember gatifloxacin [From Tequin] Allergy Anaphylactic Verified 02/14/18 09:22 Shock lansoprazole [From Prevacid] Allergy Anaphylactic Verified 02/14/18 09:22 Shock omeprazole [From Prilosec] Allergy Cannot Verified 02/14/18 09:22 Remember Penicillins Allergy Anaphylactic Verified 02/14/18 09:22 Shock Sulfa (Sulfonamide Allergy Rash Verified 02/14/18 09:22 Antibiotics) Home Meds: Home Meds Albuterol [Proventil HFA] 2 puff INH Q6H PRN 11/13/15 [History] Sennosides/Docusate Sodium [Senna-Docusate Sodium] 1 tab PO DAILY 06/05/16 [ History] Furosemide [Lasix] 20 mg PO DAILY #30 tablet 06/08/16 [Rx] Aspirin 325 mg PO BID 08/01/16 [History] Allopurinol [Zyloprim] 50 mg PO DAILY 03/21/17 [History] Metoprolol Succinate 100 mg PO DAILY 09/08/17 [History] Ranitidine HCl 150 mg PO DAILY 09/08/17 [History] Acetaminophen [Tylenol Extra Strength] 500 mg PO Q6H PRN 02/13/18 [History] Hydrocortisone 1 dose TOP BID 02/13/18 [History] Multivitamin [Poly-Vitamin] 1 tab PO DAILY 02/13/18 [History] Olopatadine [Patanol 0.1% Ophth Soln] 1 drop EYEBOTH BID 02/13/18 [History] Ondansetron HCl [Zofran] 4 mg PO Q8H PRN 02/13/18 [History] Past Medical History HEENT History: Reports: Glaucoma, Macular Degeneration Other HEENT History: wears eyeglasses, has dentures Cardiovascular History: Reports: Hypertension Gastrointestinal History: Reports: Bowel Obstruction, GERD Musculoskeletal History: Reports: Arthritis Oncologic (Cancer) History: Reports: Colon (metastatic) - Infectious Disease History Infectious Disease History: Reports: Measles, Mumps - Past Surgical History HEENT Surgical History: Reports: Cataract Surgery (bilateral), Naso-Sinus Surgery (right) Cardiovascular Surgical History: Reports: Vascular Surgery (Left Port-A-Cath) Respiratory Surgical History: Reports: Other (See Below) (Bronchoscopy) GI Surgical History: Reports: Appendectomy, Cholecystectomy (1999), Colon ( hemicolectomy), Colonoscopy (x 2), Colostomy (temporary), EGD (x 2 or 3), Other (See Below) (PEG, subsequently removed. Liver cyst excision 08/13/2017.) Male Surgical History: Reports: Nephrectomy (right, 1999, 2 trauma) Other Male Surgeries/Procedures: right kidney removed Musculoskeletal Surgical History: Reports: Other (See Below) (Left ankle surgery 1978) Dermatological Surgical History: Reports: Skin Biopsy (Lipoma right chest, 1999) Social & Family History - Family History Family Medical History: Noncontributory Other Oncologic Family History: aunt had brain cancer - Tobacco Use Smoking Status *Q: Former Smoker Years of Tobacco use: 40 Packs/Tins Daily: 1 Month/Year Tobacco Last Used: Quit 1999 - Caffeine Use Caffeine Use: Reports: None Other Caffeine Use: occasional - Alcohol Use Alcohol Use History: Yes Alcohol Use Frequency: Rarely - Recreational Drug Use Recreational Drug Use: No - Living Situation & Occupation Living situation: Reports: , with Spouse 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) ED ROS GENERAL - Review of Systems Review Of Systems: ROS reveals no pertinent complaints other than HPI. ED EXAM, GI/ABD - Physical Exam Exam: See Below Exam Limited By: No Limitations General Appearance: Alert, WD/WN, No Apparent Distress Eyes: Bilateral: Normal Appearance, EOMI Ears: Normal External Exam, Hearing Grossly Normal Nose: Normal Inspection Throat/Mouth: Normal Inspection, Normal Lips, Normal Voice, No Airway Compromise Head: Atraumatic, Normocephalic Neck: Normal Inspection, Full Range of Motion Respiratory/Chest: No Respiratory Distress, Lungs Clear, Normal Breath Sounds, No Accessory Muscle Use Cardiovascular: Normal Peripheral Pulses, Regular Rate, Rhythm, No Edema, No Gallop, No JVD, No Murmur, No Rub GI/Abdominal Exam: Normal Bowel Sounds, Soft, Non-Tender, No Organomegaly, No Distention, No Abnormal Bruit, No Mass, Other (Obese) (Male) Exam: Deferred Rectal (Males) Exam: Deferred Back Exam: Normal Inspection, Full Range of Motion, NT Extremities: Normal Inspection, Normal Range of Motion, No Pedal Edema, Normal Capillary Refill Neurological: Alert, Oriented, Normal Cognition, No Motor/Sensory Deficits Psychiatric: Normal Affect Skin Exam: Warm, Dry, Intact, Normal Color, No Rash Course - Vital Signs Last Recorded V/S: Last Vital Signs Temp 36.7 C 09/26/18 14:16 Pulse 72 09/26/18 14:16 Resp 20 09/26/18 14:16 BP 148/89 H 09/26/18 14:16 Pulse Ox 95 09/26/18 14:16 - Re-Assessments/Exams Free Text/Narrative Re-Assessment/Exam: 09/26/18 14:57 The patient likely had an esophageal impacted food bolus, however, it appears to have cleared on its own just about the time I entered his room. During my entire history and physical examination, I had him drink water, and he had no difficulty whatsoever. He feels well. The patient likely has an esophageal stricture, possibly related to his GERD, but possibly related to his radiation therapy. I will have him follow-up with Dr. Caldera to arrange for a repeat outpatient EGD. In meantime, I advised patient to try to avoid meat whenever possible, and if he does need to eat meat , make sure that it is cut into very small pieces and that he chews it well. Departure - Departure Time of Disposition: 14:58 Disposition: Home, Self-Care 01 Condition: Good Clinical Impression: Food impaction of esophagus - Discharge Information *PRESCRIPTION DRUG MONITORING PROGRAM REVIEWED*: Not Applicable *COPY OF PRESCRIPTION DRUG MONITORING REPORT IN PATIENT HEATHER: Not Applicable Instructions: Esophageal Stricture Referrals: Brendan Caldera MD [Primary Care Provider] - Laurent Shoemaker MD [Ordering Only Provider] - Forms: ED Department Discharge Additional Instructions: You were seen in the emergency room after developing the sensation of food being stuck in your esophagus while eating. The sensation resolved itself in the ER. Based on your history and physical exam, you likely have an esophageal stricture. We recommend that you try to avoid meat as much as possible, but that if you do need to eat meat, that you cut it into very small pieces and chew it well. Also , make sure that you drink plenty of fluids when eating. Follow-up with your PCP, Dr. Brendan Caldera, to arrange for an outpatient EGD ( scope of your stomach). If any other problems, please do not hesitate to return to the ER.
== END 2018-09-26 15:46 | disposition home or self-care (01) ==
LOC: JD.ED 14:07
DX: T18.128A Food in esophagus causing other injury, initial encounter (principal); I10 Essential (primary) hypertension; Z90.49 Acquired absence of other specified parts of digestive tract; Z88.0 Allergy status to penicillin; Z88.1 Allergy status to other antibiotic agents; Z88.2 Allergy status to sulfonamides; Z85.038 Personal history of other malignant neoplasm of large intestine; Z79.82 Long term (current) use of aspirin; Z79.899 Other long term (current) drug therapy; Z87.891 Personal history of nicotine dependence
CPT/HCPCS: 99282; 99283

== ENCOUNTER 2018-11-02 19:16 | Day surgery (SDC) | payer MEDICARE, BC ==
[2018-11-02] MEDS ORDERED: LORazepam 2 MG/ML SDV IVPUSH ONE (19:32)
[2018-11-02] MEDS ORDERED: Glucagon,Human Recombinant 1 MG Vial IVPUSH ONE (19:32)
--- NOTE | 2018-11-02 19:36 | EDM.PDOC ---
ED HPI GENERAL MEDICAL PROBLEM - General Chief Complaint: Gastrointestinal Problem Stated Complaint: SOMETHING STUCK IN ESOPHAGUS Time Seen by Provider: 11/02/18 19:25 Source of Information: Reports: Patient History Limitations: Reports: No Limitations - History of Present Illness INITIAL COMMENTS - FREE TEXT/NARRATIVE: The patient presents with steak stuck in his esophagus. The patient was eating steak and on the 1st bite some got stuck. He has had this happen before. He has had EGDs and no stricture was found. He does have colon cancer and had radiation and chemo. They think the radiation may have harmed something. He tried water and nothing will pass. Onset: Sudden Duration: Minutes: Location: Reports: Chest Quality: Reports: Sharp Severity: Moderate Improves with: Reports: None Worsens with: Reports: None Associated Symptoms: Reports: Chest Pain, Nausea/Vomiting. Denies: Cough, Fever /Chills, Headaches, Shortness of Breath - Related Data Allergies Allergy/AdvReac Type Severity Reaction Status Date / Time azithromycin Allergy Anaphylactic Verified 11/02/18 19:25 Shock chlorhexidine Allergy Cannot Verified 11/02/18 19:25 Remember gatifloxacin [From Tequin] Allergy Anaphylactic Verified 11/02/18 19:25 Shock lansoprazole [From Prevacid] Allergy Anaphylactic Verified 11/02/18 19:25 Shock omeprazole [From Prilosec] Allergy Cannot Verified 11/02/18 19:25 Remember Penicillins Allergy Anaphylactic Verified 11/02/18 19:25 Shock Sulfa (Sulfonamide Allergy Rash Verified 11/02/18 19:25 Antibiotics) Home Meds: Home Meds Albuterol [Proventil HFA] 2 puff INH Q6H PRN 11/13/15 [History] Sennosides/Docusate Sodium [Senna-Docusate Sodium] 1 tab PO DAILY 06/05/16 [ History] Furosemide [Lasix] 20 mg PO DAILY #30 tablet 06/08/16 [Rx] Aspirin 325 mg PO BID 08/01/16 [History] Allopurinol [Zyloprim] 50 mg PO DAILY 03/21/17 [History] Metoprolol Succinate 100 mg PO DAILY 09/08/17 [History] Ranitidine HCl 150 mg PO DAILY 09/08/17 [History] Acetaminophen [Tylenol Extra Strength] 500 mg PO Q6H PRN 02/13/18 [History] Hydrocortisone 1 dose TOP BID 02/13/18 [History] Multivitamin [Poly-Vitamin] 1 tab PO DAILY 02/13/18 [History] Olopatadine [Patanol 0.1% Ophth Soln] 1 drop EYEBOTH BID 02/13/18 [History] Ondansetron HCl [Zofran] 4 mg PO Q8H PRN 02/13/18 [History] Past Medical History HEENT History: Reports: Glaucoma, Macular Degeneration Other HEENT History: wears eyeglasses, has dentures Cardiovascular History: Reports: Hypertension Respiratory History: Reports: Bronchitis, Recurrent, COPD, SOB Other Respiratory History: stress asthma Gastrointestinal History: Reports: Bowel Obstruction, GERD Other Gastrointestinal History: esophagitis, liver mass, dysphagia, ileus, peg tube placement, small bowel obstruction Genitourinary History: Reports: Chronic Renal Insuffiency Other Genitourinary History: Rt nephrectomy [employer] History: Reports: None Musculoskeletal History: Reports: Arthritis Other Musculoskeletal History: dupuytren's contracture Neurological History: Reports: TIA Other Neuro History: ?TIAs many years ago Psychiatric History: Reports: Depression Hematologic History: Reports: None Immunologic History: Reports: None Oncologic (Cancer) History: Reports: Colon Other Oncologic History: off of chemo for the past 9 months, with james cath L chest Dermatologic History: Reports: Psoriasis - Infectious Disease History Infectious Disease History: Reports: Measles, Mumps - Past Surgical History Head Surgeries/Procedures: Reports: None HEENT Surgical History: Reports: Cataract Surgery, Naso-Sinus Surgery Cardiovascular Surgical History: Reports: Vascular Surgery Respiratory Surgical History: Reports: Other (See Below) GI Surgical History: Reports: Appendectomy, Cholecystectomy, Colon, Colonoscopy , Colostomy, EGD, Other (See Below) Male Surgical History: Reports: Nephrectomy Other Male Surgeries/Procedures: right kidney removed Endocrine Surgical History: Reports: None Neurological Surgical History: Reports: None Musculoskeletal Surgical History: Reports: Other (See Below) Dermatological Surgical History: Reports: Skin Biopsy Social & Family History - Family History Family Medical History: Noncontributory Other Oncologic Family History: aunt had brain cancer - Tobacco Use Smoking Status *Q: Former Smoker Used Tobacco, but Quit: Yes Month/Year Tobacco Last Used: 1999 - Caffeine Use Caffeine Use: Reports: Soda Other Caffeine Use: occasional - Recreational Drug Use Recreational Drug Use: No - Living Situation & Occupation Living situation: Reports: , with Spouse 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) ED ROS GENERAL - Review of Systems Review Of Systems: See Below Constitutional: Reports: No Symptoms HEENT: Reports: No Symptoms Respiratory: Reports: No Symptoms Cardiovascular: Reports: Chest Pain Endocrine: Reports: No Symptoms GI/Abdominal: Reports: Abdominal Pain, Nausea, Vomiting ED EXAM, GI/ABD - Physical Exam Exam: See Below Exam Limited By: No Limitations General Appearance: Alert, No Apparent Distress Ears: Normal External Exam Nose: Normal Inspection Head: Atraumatic, Normocephalic Neck: Normal Inspection Respiratory/Chest: No Respiratory Distress, Lungs Clear, Normal Breath Sounds Cardiovascular: Regular Rate, Rhythm, No Edema, No Murmur GI/Abdominal Exam: Soft, Non-Tender, No Organomegaly, No Mass Back Exam: Normal Inspection Extremities: Normal Inspection Course - Vital Signs Last Recorded V/S: Last Vital Signs Temp Pulse 76 11/02/18 19:22 Resp 18 11/02/18 19:22 BP 154/86 H 11/02/18 19:22 Pulse Ox 100 11/02/18 19:22 - Orders/Labs/Meds Orders: Active Orders 24 hr Category Date Time Status Patient Status [ADT] Routine ADT 11/02/18 20:31 Active EKG Documentation Completion [RC] ROUTINE Care 11/02/18 20:42 Active Implanted Port Access [RC] ONETIME Care 11/02/18 19:31 Active BASIC METABOLIC PANEL,BMP [CHEM] Stat Lab 11/02/18 21:00 Received Lactated Ringers [Ringers, Lactated] 1,000 ml Med 11/02/18 19:45 Active IV ASDIRECTED Schedule Procedure [COMM] Stat Oth 11/02/18 20:30 Ordered Medication Orders Lactated Ringer's (Ringers, Lactated) 1,000 mls @ 100 mls/hr IV ASDIRECTED SHANNON Last Admin: 11/02/18 19:43 Dose: 100 mls/hr Meds: Medications Generic Name Dose Route Start Last Admin Trade Name Freq PRN Reason Stop Dose Admin Lactated Ringer's 1,000 mls @ 100 mls/hr 11/02/18 19:45 11/02/18 19:43 Ringers, Lactated IV 100 mls/hr ASDIRECTED SHANNON Administration Discontinued Medications Generic Name Dose Route Start Last Admin Trade Name Quiana PRN Reason Stop Dose Admin Glucagon 1 mg 11/02/18 19:32 11/02/18 19:44 Glucagen IVPUSH 11/02/18 19:33 1 mg ONETIME ONE Administration Lorazepam 1 mg 11/02/18 19:32 11/02/18 19:44 Ativan IVPUSH 11/02/18 19:33 1 mg ONETIME ONE Administration - Re-Assessments/Exams Free Text/Narrative Re-Assessment/Exam: 11/02/18 19:36 The patient has a port so my nurse will access it and I will started LR at 100mls/hr, glucagon 1mg IV and ativan 1mg IV. 11/02/18 21:03 He said he felt better but when he tried some water it came back up. I feel he needs an EGD. I called Dr Carlos and she came to see the patient and she will take him to the OR for EGD. Departure - Departure Time of Disposition: 19:05 Disposition: DC/Tfer to Critical Access 66 Condition: Good Clinical Impression: Food impaction of esophagus Qualifiers: Encounter type: initial encounter Qualified Code(s): T18.128A - Food in esophagus causing other injury, initial encounter - Discharge Information - My Orders Last 24 Hours: My Active Orders 11/02/18 19:31 Implanted Port Access [RC] ONETIME 11/02/18 19:45 Lactated Ringers [Ringers, Lactated] 1,000 ml IV ASDIRECTED 11/02/18 20:30 Schedule Procedure [COMM] Stat 11/02/18 20:31 Patient Status [ADT] Routine - Assessment/Plan Last 24 Hours: My Active Orders 11/02/18 19:31 Implanted Port Access [RC] ONETIME 11/02/18 19:45 Lactated Ringers [Ringers, Lactated] 1,000 ml IV ASDIRECTED 11/02/18 20:30 Schedule Procedure [COMM] Stat 11/02/18 20:31 Patient Status [ADT] Routine
[2018-11-02] MEDS ORDERED: Lactated Ringers 1,000 ML IV SCH (19:45)
--- NOTE | 2018-11-02 21:03 | PCM.HP ---
H&P History of Present Illness - General Date of Service: 11/02/18 Admit Problem/Dx: Admission Diagnosis/Problem Admission Diagnosis/Problem Foreign body in esophagus Source of Information: Patient, Provider - History of Present Illness Initial Comments - Free Text/Narative: The patient is a 77 y/o male who presents with an esophageal food bolus. He reports having steak about 3 hours ago. He now feels that he has a foreign body stuck in the esophagus. He denies any pain. He denies any respiratory difficulties. He reports to the ED, and ativan and glucagon were given. He has not been able to tolerate any water. The patient underwent workup for his dysphagia about 9 months ago. He has a longstanding history of dysphagia. He had an esophogram done and EGD about 9 months ago which only revealed esophagitis. He has since been taking ranitidine twice daily. - Related Data Allergies/Adverse Reactions: Allergies Allergy/AdvReac Type Severity Reaction Status Date / Time azithromycin Allergy Anaphylactic Verified 11/02/18 19:25 Shock chlorhexidine Allergy Cannot Verified 11/02/18 19:25 Remember gatifloxacin [From Tequin] Allergy Anaphylactic Verified 11/02/18 19:25 Shock lansoprazole [From Prevacid] Allergy Anaphylactic Verified 11/02/18 19:25 Shock omeprazole [From Prilosec] Allergy Cannot Verified 11/02/18 19:25 Remember Penicillins Allergy Anaphylactic Verified 11/02/18 19:25 Shock Sulfa (Sulfonamide Allergy Rash Verified 11/02/18 19:25 Antibiotics) Home Medications: Home Meds Albuterol [Proventil HFA] 2 puff INH Q6H PRN 11/13/15 [History] Sennosides/Docusate Sodium [Senna-Docusate Sodium] 1 tab PO DAILY 06/05/16 [ History] Furosemide [Lasix] 20 mg PO DAILY #30 tablet 06/08/16 [Rx] Aspirin 325 mg PO BID 08/01/16 [History] Allopurinol [Zyloprim] 50 mg PO DAILY 03/21/17 [History] Metoprolol Succinate 100 mg PO DAILY 09/08/17 [History] Ranitidine HCl 150 mg PO DAILY 09/08/17 [History] Acetaminophen [Tylenol Extra Strength] 500 mg PO Q6H PRN 02/13/18 [History] Hydrocortisone 1 dose TOP BID 02/13/18 [History] Multivitamin [Poly-Vitamin] 1 tab PO DAILY 02/13/18 [History] Olopatadine [Patanol 0.1% Ophth Soln] 1 drop EYEBOTH BID 02/13/18 [History] Ondansetron HCl [Zofran] 4 mg PO Q8H PRN 02/13/18 [History] Past Medical History HEENT History: Reports: Glaucoma, Macular Degeneration Other HEENT History: wears eyeglasses, has dentures Cardiovascular History: Reports: Hypertension Respiratory History: Reports: Bronchitis, Recurrent, COPD, SOB Other Respiratory History: stress asthma Gastrointestinal History: Reports: Bowel Obstruction, GERD Other Gastrointestinal History: esophagitis, liver mass, dysphagia, ileus, peg tube placement, small bowel obstruction Genitourinary History: Reports: Chronic Renal Insuffiency Other Genitourinary History: Rt nephrectomy [employer] PING PONG TABLE History: Reports: None Musculoskeletal History: Reports: Arthritis Other Musculoskeletal History: dupuytren's contracture Neurological History: Reports: TIA Other Neuro History: ?TIAs many years ago Psychiatric History: Reports: Depression Hematologic History: Reports: None Immunologic History: Reports: None Oncologic (Cancer) History: Reports: Colon Other Oncologic History: off of chemo for the past 9 months, with james cath L chest Dermatologic History: Reports: Psoriasis - Infectious Disease History Infectious Disease History: Reports: Measles, Mumps - Past Surgical History Head Surgeries/Procedures: Reports: None HEENT Surgical History: Reports: Cataract Surgery, Naso-Sinus Surgery Cardiovascular Surgical History: Reports: Vascular Surgery Respiratory Surgical History: Reports: Tracheostomy, Other (See Below) GI Surgical History: Reports: Appendectomy, Cholecystectomy, Colon, Colonoscopy , Colostomy, EGD, Other (See Below) Male Surgical History: Reports: Nephrectomy Other Male Surgeries/Procedures: right kidney removed Endocrine Surgical History: Reports: None Neurological Surgical History: Reports: None Musculoskeletal Surgical History: Reports: Other (See Below) Dermatological Surgical History: Reports: Skin Biopsy Social & Family History - Family History GI: Reports: Other (See Below) (dysphagia) Other Oncologic Family History: aunt had brain cancer - Tobacco Use Smoking Status *Q: Former Smoker Used Tobacco, but Quit: Yes Month/Year Tobacco Last Used: 1999 - Caffeine Use Caffeine Use: Reports: Soda Other Caffeine Use: occasional - Recreational Drug Use Recreational Drug Use: No - Living Situation & Occupation Living situation: Reports: , with Spouse 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) H&P Review of Systems - Review of Systems: Review Of Systems: See Below General: Reports: No Symptoms HEENT: Reports: No Symptoms Pulmonary: Reports: No Symptoms Cardiovascular: Reports: No Symptoms Gastrointestinal: Reports: Difficulty Swallowing Genitourinary: Reports: No Symptoms Musculoskeletal: Reports: Joint Pain Skin: Reports: Dryness Neurological: Reports: No Symptoms Exam - Exam Exam: See Below - Vital Signs Vital Signs: Last Vital Signs Temp Pulse 76 11/02/18 19:22 Resp 18 11/02/18 19:22 BP 154/86 H 11/02/18 19:22 Pulse Ox 100 11/02/18 19:22 Weight: 87.997 kg - Exam Quality Assessment: No: Supplemental Oxygen General: Alert, Oriented HEENT: Conjunctiva Clear, EOMI Neck: Supple Lungs: Clear to Auscultation, Normal Respiratory Effort Cardiovascular: Regular Rate, Regular Rhythm GI/Abdominal Exam: Soft, Non-Tender, No Distention Extremities: Normal Inspection, No Pedal Edema Peripheral Pulses: 2+: Dorsalis Pedis (L), Dorsalis Pedis (R) Skin: Warm, Dry, Intact Neurological: Cranial Nerves Intact Neuro Extensive - Mental Status: Oriented x3, Normal Mood/Affect - Patient Data Result Diagrams: 11/02/18 21:00 *Q Meaningful Use (ADM) - VTE Risk Assess *Q Each Risk Factor Represents 3 Points: Age 75 Years or Greater Total Score 3 Point Risk Factors: 3 - Problem List (1) Esophageal foreign body SNOMED Code(s): 07511159 ICD Code: T18.108A - UNSP FOREIGN BODY IN ESOPHAGUS CAUSING OTH INJURY, INIT Status: Acute Current Visit: No Qualifiers: Encounter type: initial encounter Qualified Code(s): T18.108A - Unspecified foreign body in esophagus causing other injury, initial encounter Problem List Initiated/Reviewed/Updated: Yes Orders Last 24hrs: Active Orders 24 hr Category Date Time Status Patient Status [ADT] Routine ADT 11/02/18 20:31 Active EKG Documentation Completion [RC] ROUTINE Care 11/02/18 20:42 Active Implanted Port Access [RC] ONETIME Care 11/02/18 19:31 Active BASIC METABOLIC PANEL,BMP [CHEM] Stat Lab 11/02/18 20:45 Ordered Lactated Ringers [Ringers, Lactated] 1,000 ml Med 11/02/18 19:45 Active IV ASDIRECTED Schedule Procedure [COMM] Stat Oth 11/02/18 20:30 Ordered Medication Orders Lactated Ringer's (Ringers, Lactated) 1,000 mls @ 100 mls/hr IV ASDIRECTED SHANNON Last Admin: 11/02/18 19:43 Dose: 100 mls/hr Assessment/Plan Comment:: 69-year-old male with esophageal foreign body. - Plan for EGD with retrieval of foreign body. The patient is a high-risk candidate for anesthesia. We will attempt light sedation with local anesthetic to the pharynx and attempt to prevent need for intubation. The patient understood and was agreeable to this plan. We discussed risks of perforation being higher with instrumentation needed for retrieving a food bolus. The patient's written consent was obtained. - Will assess need for observation based on procedure findings Tova Allred MD General Surgery
[2018-11-02] MEDS ORDERED: Albuterol 0.083% 2.5 MG/3 ML Neb Soln NEB ONE (21:08)
[2018-11-02] MEDS ORDERED: Lidocaine 4% Top Soln 50 ML Bottle ONE (21:11)
[2018-11-02] MEDS ORDERED: Propofol 200 MG/20 ML SDV ONE (21:13)
[2018-11-02] MEDS ORDERED: Midazolam 1 MG/ML 2 ML SDV ONE (21:14)
[2018-11-02] MEDS ORDERED: fentaNYL 100 MCG/2 ML SDV ONE (21:14)
[2018-11-02] MEDS ORDERED: Lidocaine 1% 6 ML ONE (21:15)
[2018-11-02] MEDS ORDERED: Glycopyrrolate 0.2 MG/ML SDV ONE (22:05)
--- NOTE | 2018-11-02 22:15 | PCM.OPNOTE ---
- General Post-Op/Procedure Note Date of Surgery/Procedure: 11/02/18 Operative Procedure(s): EGD with retrieval of impacted food bolus Findings: impacted food bolus Pre Op Diagnosis: esophageal obstruction Post-Op Diagnosis: same Anesthesia Technique: Local, Moderate Sedation Primary Surgeon: Tova Allred Anesthesia Provider: Erika Holliday Pathology: none Fluid Replacement, Intraop: 500 Output, Urine Amount: 0 EBL in mLs: 0 Complications: none apparent Condition: Good
--- NOTE | 2018-11-02 22:19 | PCM.PRNOTE ---
- Free Text/Narrative Note: Operative Report Date of procedure: November 02, 2018 Preoperative diagnosis: esophageal obstruction Postoperative diagnosis:same Surgeon: Tova Allred M.D. Procedure: EGD with removal of impacted food bolus Anesthesia: moderate sedation with local Anesthesiologist: Erika Holliday CRNA IV fluids: 500 mL Estimated blood loss: 0 mL Specimens: none Indication: The patient is a 77 -year-old gentleman who presented with an esophageal obstruction. The patient's main complaint was dysphagia and feeling of foreign body stuck in the distal esophagus. The patient was consented for an EGD with intervention. Risk of bleeding and perforation were discussed. The patient's consent was obtained Description of the procedure: The patient was taken to the endoscopy suite and placed on hemodynamic monitoring. The nurse passenger representative induced moderate sedation and anesthetized the pharynx. A bite block was placed. The patient was positioned in the left lateral decubitus position. A timeout was performed. The endoscope was gently placed into the mouth to the back of the pharynx and introduced into the esophagus. The scope was gently advanced under direct visualization down to the level of the food bolus. A hexagon. A snare was used to retrieve to large pieces of meat. The scope was reintroduced and additional small food pieces were then pushed into the stomach. There was then a clear channel. Excess fluid was suctioned from the esophagus. There is no evidence of stricture or mass. The scope was then withdrawn while inspecting the esophagus. There was no esophagitis, only some edema at the GE junction. The procedure was terminated. the patient tolerated the procedure well without any evidence of complications. Instructions: He may resume full liquid diet for 48 hours and advance as tolerated. continue acid suppression therapy Tova Allred MD General Surgery
--- NOTE | 2018-11-02 22:23 | PCM48HPAN ---
Post Anesthesia Note - EVALUATION WITHIN 48HRS OF ANESTHETIC Vital Signs in Normal Range: Yes Patient Participated in Evaluation: Yes Respiratory Function Stable: Yes Airway Patent: Yes Cardiovascular Function Stable: Yes Hydration Status Stable: Yes Pain Control Satisfactory: Yes Nausea and Vomiting Control Satisfactory: Yes Mental Status Recovered: Yes
--- NOTE | 2018-11-02 22:23 | PCM.PREANE ---
Preanesthetic Assessment - Anesthesia/Transfusion/Family Hx Anesthesia History: No Prior Anesthesia Family History of Anesthesia Reaction: No Transfusion History: No Prior Transfusion(s) - Review of Systems General: No Symptoms Pulmonary: Shortness of Breath (COPD, Asthma, Bronchitis. History of Tracheostomy for 66 days in 2013. ) Cardiovascular: No Symptoms Gastrointestinal: Other (GERD/Esophagitis) Neurological: No Symptoms (TIA many years ago) Other: Reports: Depression - Physical Assessment NPO Status Date: 11/02/18 NPO Status Time: 17:30 O2 Sat by Pulse Oximetry: 100 Respiratory Rate: 18 Vital Signs: Last Vital Signs Temp Pulse 76 11/02/18 19:22 Resp 18 11/02/18 19:22 BP 154/86 H 11/02/18 19:22 Pulse Ox 99 11/02/18 21:26 Height: 1.73 m Weight: 87.997 kg ASA Class: 3 Mental Status: Alert & Oriented x3 Airway Class: Mallampati = 3 Dentition: Reports: Dentures Thyro-Mental Finger Breadths: 3 Mouth Opening Finger Breadths: 3 ROM/Head Extension: Full Lungs: Clear to Auscultation, Normal Respiratory Effort Cardiovascular: Regular Rate, Regular Rhythm - Lab Values: Laboratory Last Values Sodium 139 mEq/L (136-145) 11/02/18 21:00 Potassium 4.3 mEq/L (3.5-5.1) 11/02/18 21:00 Chloride 108 mEq/L (98-107) H 11/02/18 21:00 Carbon Dioxide 19 mEq/L (21-32) L 11/02/18 21:00 Anion Gap 16.3 (5-15) H 11/02/18 21:00 BUN 42 mg/dL (7-18) H 11/02/18 21:00 Creatinine 1.6 mg/dL (0.7-1.3) H 11/02/18 21:00 Est Cr Clr Drug Dosing 36.81 mL/min 11/02/18 21:00 Estimated GFR (MDRD) 42 mL/min (>60) 11/02/18 21:00 BUN/Creatinine Ratio 26.3 (14-18) H 11/02/18 21:00 Glucose 99 mg/dL (83-115) 11/02/18 21:00 Calcium 8.4 mg/dL (8.5-10.1) L 11/02/18 21:00 - Imaging/EKG Impressions: SR with RBBB at 57 bpm - Allergies Allergies/Adverse Reactions: Allergies Allergy/AdvReac Type Severity Reaction Status Date / Time azithromycin Allergy Anaphylactic Verified 11/02/18 19:25 Shock chlorhexidine Allergy Cannot Verified 11/02/18 19:25 Remember gatifloxacin [From Tequin] Allergy Anaphylactic Verified 11/02/18 19:25 Shock lansoprazole [From Prevacid] Allergy Anaphylactic Verified 11/02/18 19:25 Shock omeprazole [From Prilosec] Allergy Cannot Verified 11/02/18 19:25 Remember Penicillins Allergy Anaphylactic Verified 11/02/18 19:25 Shock Sulfa (Sulfonamide Allergy Rash Verified 11/02/18 19:25 Antibiotics) - Acknowledgements Anesthesia Type Planned: MAC (Topical anesthesia 4% lidocaine, minimal anesthetic. ) Pt an Appropriate Candidate for the Planned Anesthesia: Yes Alternatives and Risks of Anesthesia Discussed w Pt/Guardian: Yes Pt/Guardian Understands and Agrees with Anesthesia Plan: Yes Additional Comments: Qi has a history of prolonged intubation and tracheostomy following a previous surgery in 2013. He does not want to be intubated. He understands the risk of aspiration vs the risk of intubation with questionable tracheal stenosis. Qi is agreeable to proceed with minimal anesthesia and topical lidocaine. PreAnesthesia Questionnaire HEENT History: Reports: Glaucoma, Macular Degeneration Other HEENT History: wears eyeglasses, has dentures Cardiovascular History: Reports: Hypertension Respiratory History: Reports: Bronchitis, Recurrent, COPD, SOB Other Respiratory History: stress asthma Gastrointestinal History: Reports: Bowel Obstruction, GERD Other Gastrointestinal History: esophagitis, liver mass, dysphagia, ileus, peg tube placement, small bowel obstruction Genitourinary History: Reports: Chronic Renal Insuffiency Other Genitourinary History: Rt nephrectomy COMPOSITION FLOOR LAYER History: Reports: None Musculoskeletal History: Reports: Arthritis Other Musculoskeletal History: dupuytren's contracture Neurological History: Reports: TIA Other Neuro History: ?TIAs many years ago Psychiatric History: Reports: Depression Hematologic History: Reports: None Immunologic History: Reports: None Oncologic (Cancer) History: Reports: Colon Other Oncologic History: off of chemo for the past 9 months, with james cath L chest Dermatologic History: Reports: Psoriasis - Infectious Disease History Infectious Disease History: Reports: Measles, Mumps - Past Surgical History Head Surgeries/Procedures: Reports: None HEENT Surgical History: Reports: Cataract Surgery, Naso-Sinus Surgery Cardiovascular Surgical History: Reports: Vascular Surgery Respiratory Surgical History: Reports: Tracheostomy, Other (See Below) GI Surgical History: Reports: Appendectomy, Cholecystectomy, Colon, Colonoscopy , Colostomy, EGD, Other (See Below) Male Surgical History: Reports: Nephrectomy Other Male Surgeries/Procedures: right kidney removed Endocrine Surgical History: Reports: None Neurological Surgical History: Reports: None Musculoskeletal Surgical History: Reports: Other (See Below) Dermatological Surgical History: Reports: Skin Biopsy - SUBSTANCE USE Smoking Status *Q: Former Smoker Recreational Drug Use History: No - HOME MEDS Home Medications: Home Meds Albuterol [Proventil HFA] 2 puff INH Q6H PRN 11/13/15 [History] Sennosides/Docusate Sodium [Senna-Docusate Sodium] 1 tab PO DAILY 06/05/16 [ History] Furosemide [Lasix] 20 mg PO DAILY #30 tablet 06/08/16 [Rx] Aspirin 325 mg PO BID 08/01/16 [History] Allopurinol [Zyloprim] 50 mg PO DAILY 03/21/17 [History] Metoprolol Succinate 100 mg PO DAILY 09/08/17 [History] Ranitidine HCl 150 mg PO DAILY 09/08/17 [History] Acetaminophen [Tylenol Extra Strength] 500 mg PO Q6H PRN 02/13/18 [History] Hydrocortisone 1 dose TOP BID 02/13/18 [History] Multivitamin [Poly-Vitamin] 1 tab PO DAILY 02/13/18 [History] Olopatadine [Patanol 0.1% Ophth Soln] 1 drop EYEBOTH BID 02/13/18 [History] Ondansetron HCl [Zofran] 4 mg PO Q8H PRN 02/13/18 [History] - CURRENT (IN HOUSE) MEDS Current Meds: Current Medications Lactated Ringer's (Ringers, Lactated) 1,000 mls @ 100 mls/hr IV ASDIRECTED SHANNON Last Admin: 11/02/18 19:43 Dose: 100 mls/hr Discontinued Medications Albuterol (Proventil Neb Soln) 2.5 mg NEB ONETIME ONE Stop: 11/02/18 21:09 Last Admin: 11/02/18 21:13 Dose: 2.5 mg Fentanyl (Sublimaze) Confirm Administered Dose 100 mcg .ROUTE .STK-MED ONE Stop: 11/02/18 21:15 Glucagon (Glucagen) 1 mg IVPUSH ONETIME ONE Stop: 11/02/18 19:33 Last Admin: 11/02/18 19:44 Dose: 1 mg Glycopyrrolate (Robinul) Confirm Administered Dose 0.2 mg .ROUTE .STK-MED ONE Stop: 11/02/18 22:06 Lidocaine HCl (Xylocaine-Mpf 1%) Confirm Administered Dose 6 mls @ as directed .ROUTE .STK-MED ONE Stop: 11/02/18 21:16 Lidocaine HCl (Xylocaine 4% Top Soln) Confirm Administered Dose 50 ml .ROUTE .STK-MED ONE Stop: 11/02/18 21:12 Lorazepam (Ativan) 1 mg IVPUSH ONETIME ONE Stop: 11/02/18 19:33 Last Admin: 11/02/18 19:44 Dose: 1 mg Midazolam HCl (Versed 1 Mg/Ml) Confirm Administered Dose 2 mg .ROUTE .STK-MED ONE Stop: 11/02/18 21:15 Propofol (Diprivan 20 Ml) Confirm Administered Dose 200 mg .ROUTE .STK-MED ONE Stop: 11/02/18 21:14
[2018-11-02 22:32] VITALS: BP 120/73
== END 2018-11-02 22:47 | disposition home or self-care (01) ==
LOC: JD.ED 19:16 → JD.SDS 20:35
PROVIDERS: ATTEND Surgery
DX: K22.2 Esophageal obstruction (principal); T18.128A Food in esophagus causing other injury, initial encounter; J44.9 Chronic obstructive pulmonary disease, unspecified; K21.9 Gastro-esophageal reflux disease without esophagitis; M19.90 Unspecified osteoarthritis, unspecified site; I10 Essential (primary) hypertension; Z88.1 Allergy status to other antibiotic agents; Z88.8 Allergy status to other drugs, medicaments and biological substances; Z88.0 Allergy status to penicillin; Z88.2 Allergy status to sulfonamides; Z79.82 Long term (current) use of aspirin; Z79.899 Other long term (current) drug therapy
CPT/HCPCS: 36415; 43247; 80048; 93005; 94640; 96374; 96375; 99284; A9270; J1610; J1642; J2001; J2060; J2250; J3010; J3490; J7120; 00731; J2704

== ENCOUNTER 2018-11-09 16:07 | Emergency (ER) | payer MEDICARE, BC ==
[2018-11-09 16:18] VITALS: BP 122/83
[2018-11-09] MEDS ORDERED: Doxycycline 100 MG Cap PO ONE (18:34)
--- NOTE | 2018-11-09 18:39 | EDM.PDOC ---
ED HPI GENERAL MEDICAL PROBLEM - General Chief Complaint: Chest Pain Stated Complaint: CHEST PAIN ON LEFT SIDE Time Seen by Provider: 11/09/18 16:54 Source of Information: Reports: Patient, Family (), RN Notes Reviewed - History of Present Illness INITIAL COMMENTS - FREE TEXT/NARRATIVE: 77 year old male with onset of chest pain about 4 days ago, primarily with coughing. He also does sometimes feel that with certain types of motion. He has not notice pain with breathin. He has a chronic cough occasionally productive of clear phlegm. No fever or chills that he has been aware of. He does not feel short of breath at this time. No abd pain, nausea or vomiting. Hx of colon cancer metastatic to liver that has been treated. He states he developed a lesion of his L lung 6 months ago that has been treated with radiation. He now has a possible lesion that has showed up on his R lung. Scheduled for CT 2 days from now. He does not have current chest tightness. No radiation of pain to L arm. - Related Data Allergies Allergy/AdvReac Type Severity Reaction Status Date / Time azithromycin Allergy Anaphylactic Verified 11/09/18 16:17 Shock chlorhexidine Allergy Cannot Verified 11/09/18 16:17 Remember gatifloxacin [From Tequin] Allergy Anaphylactic Verified 11/09/18 16:17 Shock lansoprazole [From Prevacid] Allergy Anaphylactic Verified 11/09/18 16:17 Shock omeprazole [From Prilosec] Allergy Cannot Verified 11/09/18 16:17 Remember Penicillins Allergy Anaphylactic Verified 11/09/18 16:17 Shock Sulfa (Sulfonamide Allergy Rash Verified 11/09/18 16:17 Antibiotics) Home Meds: Home Meds Albuterol [Proventil HFA] 2 puff INH Q6H PRN 11/13/15 [History] Sennosides/Docusate Sodium [Senna-Docusate Sodium] 1 tab PO DAILY 06/05/16 [ History] Furosemide [Lasix] 20 mg PO DAILY #30 tablet 06/08/16 [Rx] Aspirin 325 mg PO BID 08/01/16 [History] Allopurinol [Zyloprim] 50 mg PO DAILY 03/21/17 [History] Metoprolol Succinate 100 mg PO DAILY 09/08/17 [History] Ranitidine HCl 150 mg PO DAILY 09/08/17 [History] Acetaminophen [Tylenol Extra Strength] 500 mg PO Q6H PRN 02/13/18 [History] Hydrocortisone 1 dose TOP BID 02/13/18 [History] Multivitamin [Poly-Vitamin] 1 tab PO DAILY 02/13/18 [History] Olopatadine [Patanol 0.1% Ophth Soln] 1 drop EYEBOTH BID 02/13/18 [History] Ondansetron HCl [Zofran] 4 mg PO Q8H PRN 02/13/18 [History] Doxycycline [Vibramycin] 100 mg PO BID #14 tab 11/09/18 [Rx] Past Medical History HEENT History: Reports: Glaucoma, Macular Degeneration Other HEENT History: wears eyeglasses, has dentures Cardiovascular History: Reports: Hypertension Respiratory History: Reports: Bronchitis, Recurrent, COPD, SOB Other Respiratory History: stress asthma Gastrointestinal History: Reports: Bowel Obstruction, GERD Other Gastrointestinal History: esophagitis, liver mass, dysphagia, ileus, peg tube placement, small bowel obstruction Genitourinary History: Reports: Chronic Renal Insuffiency Other Genitourinary History: Rt nephrectomy [employer] TOOL History: Reports: None Musculoskeletal History: Reports: Arthritis Other Musculoskeletal History: dupuytren's contracture Neurological History: Reports: TIA Other Neuro History: ?TIAs many years ago Psychiatric History: Reports: Depression Hematologic History: Reports: None Immunologic History: Reports: None Oncologic (Cancer) History: Reports: Colon Other Oncologic History: off of chemo for the past 9 months, with james cath L chest Dermatologic History: Reports: Psoriasis - Infectious Disease History Infectious Disease History: Reports: Measles, Mumps - Past Surgical History Head Surgeries/Procedures: Reports: None HEENT Surgical History: Reports: Cataract Surgery, Naso-Sinus Surgery Cardiovascular Surgical History: Reports: Vascular Surgery Respiratory Surgical History: Reports: Tracheostomy, Other (See Below) GI Surgical History: Reports: Appendectomy, Cholecystectomy, Colon, Colonoscopy , Colostomy, EGD, Other (See Below) Male Surgical History: Reports: Nephrectomy Other Male Surgeries/Procedures: right kidney removed Endocrine Surgical History: Reports: None Neurological Surgical History: Reports: None Musculoskeletal Surgical History: Reports: Other (See Below) Dermatological Surgical History: Reports: Skin Biopsy Social & Family History - Family History Family Medical History: Noncontributory GI: Reports: Other (See Below) Other Oncologic Family History: aunt had brain cancer - Tobacco Use Smoking Status *Q: Former Smoker Years of Tobacco use: 40 Used Tobacco, but Quit: No - Caffeine Use Caffeine Use: Reports: Soda Other Caffeine Use: occasional - Recreational Drug Use Recreational Drug Use: No - Living Situation & Occupation Living situation: Reports: , with Spouse 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) ED ROS GENERAL - Review of Systems Review Of Systems: See Below Constitutional: Denies: Fever, Chills, Diaphoresis HEENT: Reports: No Symptoms Respiratory: Reports: Shortness of Breath (with exertion chronically), Pleuritic Chest Pain, Cough, Sputum. Denies: Hemoptysis Cardiovascular: Reports: Chest Pain (primarily with coughing) GI/Abdominal: Denies: Abdominal Pain, Nausea, Vomiting Musculoskeletal: Denies: Shoulder Pain, Arm Pain Skin: Reports: No Symptoms Neurological: Reports: No Symptoms ED EXAM, GENERAL - Physical Exam Exam: See Below Exam Limited By: No Limitations General Appearance: Alert, No Apparent Distress Throat/Mouth: Normal Inspection Head: Atraumatic. No: Facial Swelling Neck: Supple, Full Range of Motion Respiratory/Chest: No Respiratory Distress, Lungs Clear, Normal Breath Sounds, Chest Non-Tender, Other (port present L upper chest) Cardiovascular: Regular Rate, Rhythm GI/Abdominal: Soft, Non-Tender Back Exam: No: CVA Tenderness (L), CVA Tenderness (R) Extremities: No Pedal Edema. No: Leg Pain, Increased Warmth, Redness Neurological: Alert, Oriented, No Motor/Sensory Deficits Skin Exam: Warm, Dry, Normal Color EKG INTERPRETATION EKG Date: 11/09/18 Rhythm: NSR [place]: Normal P-Wave: Present QRS: RBBB Course - Vital Signs Last Recorded V/S: Last Vital Signs Temp 99.1 F 11/09/18 16:15 Pulse 83 11/09/18 16:15 Resp 19 11/09/18 16:15 BP 122/83 11/09/18 16:15 Pulse Ox 97 11/09/18 16:15 - Orders/Labs/Meds Orders: Active Orders 24 hr Category Date Time Status Implanted Port Access [RC] DAILY Care 11/09/18 17:00 Active Chest 2V [CR] Stat Exams 11/09/18 17:01 Taken Labs: Laboratory Tests 06/11/09/18 11/09/18 Range/Units 16:35 16:35 16:35 WBC 9.97 H (4.23-9.07) K/mm3 RBC 4.47 L (4.63-6.08) M/mm3 Hgb 12.5 L D (13.7-17.5) gm/L Hct 37.4 L (40.1-51.0) % MCV 83.7 (79.0-92.2) fl MCH 28.0 (25.7-32.2) pg MCHC 33.4 (32.2-35.5) g/dl RDW Std Deviation 41.7 (35.1-43.9) fL Plt Count 176 (163-337) K/mm3 MPV 11.1 (9.4-12.3) fl Neut % (Auto) 72.7 H (34.0-67.9) % Lymph % (Auto) 12.9 L (21.8-53.1) % [place] % (Auto) 9.3 (5.3-12.2) % Eos % (Auto) 4.7 (0.8-7.0) Baso % (Auto) 0.2 (0.1-1.2) % Neut # (Auto) 7.24 H (1.78-5.38) K/mm3 Lymph # (Auto) 1.29 L (1.32-3.57) K/mm3 [place] # (Auto) 0.93 H (0.30-0.82) K/mm3 Eos # (Auto) 0.47 (0.04-0.54) K/mm3 Baso # (Auto) 0.02 (0.01-0.08) K/mm3 PT 10.7 (9.5-12.1) SECONDS INR 0.98 APTT (24-31) SECONDS Sodium 133 L (136-145) mEq/L Potassium 4.2 (3.5-5.1) mEq/L Chloride 103 (98-107) mEq/L Carbon Dioxide 17 L (21-32) mEq/L Anion Gap 17.2 H (5-15) BUN 40 H (7-18) mg/dL Creatinine 1.8 H (0.7-1.3) mg/dL Est Cr Clr Drug Dosing 32.72 mL/min Estimated GFR (MDRD) 37 (>60) mL/min BUN/Creatinine Ratio 22.2 H (14-18) Glucose 91 (83-115) mg/dL Calcium 8.4 L (8.5-10.1) mg/dL Magnesium 1.9 (1.8-2.4) mg/dl Total Bilirubin 0.4 (0.2-1.0) mg/dL AST 16 (15-37) U/L ALT 13 L (16-63) U/L Alkaline Phosphatase 121 H (46-116) U/L CK-MB (CK-2) 1.8 (0-3.6) ng/ml Troponin I < 0.017 (0.00-0.056) ng/mL C-Reactive Protein 2.5 H* (<1.0) mg/dL NT-Pro-B Natriuret Pep (0-450) pg/mL Total Protein 6.3 L (6.4-8.2) g/dl Albumin 3.3 L (3.4-5.0) g/dl Globulin 3.0 gm/dL Albumin/Globulin Ratio 1.1 (1-2) 11/09/18 11/09/18 Range/Units 16:35 16:35 WBC (4.23-9.07) K/mm3 RBC (4.63-6.08) M/mm3 Hgb (13.7-17.5) gm/L Hct (40.1-51.0) % MCV (79.0-92.2) fl MCH (25.7-32.2) pg MCHC (32.2-35.5) g/dl RDW Std Deviation (35.1-43.9) fL Plt Count (163-337) K/mm3 MPV (9.4-12.3) fl Neut % (Auto) (34.0-67.9) % Lymph % (Auto) (21.8-53.1) % [place] % (Auto) (5.3-12.2) % Eos % (Auto) (0.8-7.0) Baso % (Auto) (0.1-1.2) % Neut # (Auto) (1.78-5.38) K/mm3 Lymph # (Auto) (1.32-3.57) K/mm3 [place] # (Auto) (0.30-0.82) K/mm3 Eos # (Auto) (0.04-0.54) K/mm3 Baso # (Auto) (0.01-0.08) K/mm3 PT (9.5-12.1) SECONDS INR APTT 40 H (24-31) SECONDS Sodium (136-145) mEq/L Potassium (3.5-5.1) mEq/L Chloride (98-107) mEq/L Carbon Dioxide (21-32) mEq/L Anion Gap (5-15) BUN (7-18) mg/dL Creatinine (0.7-1.3) mg/dL Est Cr Clr Drug Dosing mL/min Estimated GFR (MDRD) (>60) mL/min BUN/Creatinine Ratio (14-18) Glucose (83-115) mg/dL Calcium (8.5-10.1) mg/dL Magnesium (1.8-2.4) mg/dl Total Bilirubin (0.2-1.0) mg/dL AST (15-37) U/L ALT (16-63) U/L Alkaline Phosphatase (46-116) U/L CK-MB (CK-2) (0-3.6) ng/ml Troponin I (0.00-0.056) ng/mL C-Reactive Protein (<1.0) mg/dL NT-Pro-B Natriuret Pep 412 (0-450) pg/mL Total Protein (6.4-8.2) g/dl Albumin (3.4-5.0) g/dl Globulin gm/dL Albumin/Globulin Ratio (1-2) Meds: Medications Discontinued Medications Generic Name Dose Route Start Last Admin Trade Name Freq PRN Reason Stop Dose Admin Doxycycline Hyclate 100 mg 11/09/18 18:34 11/09/18 18:47 Vibramycin PO 11/09/18 18:35 100 mg ONETIME ONE Administration Heparin Sodium (Porcine) 100 units 11/09/18 18:58 11/09/18 19:02 Heparin Lock Flush 100 Units/Ml FLUSH 100 units ASDIRECTED PRN Administration Deaccessing Port - Re-Assessments/Exams Free Text/Narrative Re-Assessment/Exam: 11/09/18 18:50 CXR shows a small area of increased density or infiltrate L upper chest mildly present CXR of 2 yrs ago but more prominent now. More recent clinic Xrays not available for comparison. WBC is OK, temp. was 99.1. He does not appear seriously ill at this time. 02 sats 97 %. He is scheduled for chest CT Saturday less than 48 hours from now. Will continue with that plan. Will start him on doxycycline 100 mg bid. Discharge instr. as documented. Departure - Departure Time of Disposition: 18:35 Disposition: Home, Self-Care 01 Condition: Fair Clinical Impression: Atypical chest pain Prescriptions: Doxycycline [Vibramycin] 100 mg PO BID #14 tab Instructions: Nonspecific Chest Pain, [id number] Referrals: Brendan Caldera MD [Primary Care Provider] - Forms: ED Department Discharge Additional Instructions: Doxycycline 100 mg twice daily for now, prescription has been sent electronic to [place] [facility]. CT of chest as scheduled Saturday, follow up with Dr Loredo and Dr Caldera as planned for results, further treatment as needed. Your heart checks out well this evening. Tylenol q 6 to 8 hr as needed for pain.
--- NOTE | 2018-11-10 11:18 | CR ---
Chest: Two views of the chest were obtained. Comparison: Prior chest x-ray of 09/08/17. New nodule is identified within the right upper chest. Increased density is also seen within the left upper chest as well as possibly within the left lung base most likely representing pneumonia. Heart size is normal. Tortuous thoracic aorta is seen. Diaphragms are flattened on the lateral view likely representing emphysematous change. Left-sided infusion port is seen. Impression: 1. Probable pneumonia within the left upper lung and possibly left lower lung. 2. New nodule within the right upper lung. Chest CT is strongly recommended. 3. Emphysematous change. Diagnostic code #9
== END 2018-11-09 18:55 | disposition home or self-care (01) ==
LOC: JD.ED 16:07
DX: R07.89 Other chest pain (principal); I12.9 Hypertensive chronic kidney disease with stage 1 through stage 4 chronic kidney disease, or unspecified chronic kidney disease; N18.9 Chronic kidney disease, unspecified; M19.90 Unspecified osteoarthritis, unspecified site; Z98.49 Cataract extraction status, unspecified eye; Z90.49 Acquired absence of other specified parts of digestive tract; Z86.73 Personal history of transient ischemic attack (TIA), and cerebral infarction without residual deficits; Z79.899 Other long term (current) drug therapy; Z79.82 Long term (current) use of aspirin; Z88.2 Allergy status to sulfonamides; Z88.1 Allergy status to other antibiotic agents; Z88.0 Allergy status to penicillin; Z85.038 Personal history of other malignant neoplasm of large intestine; Z87.891 Personal history of nicotine dependence
CPT/HCPCS: 36415; 71046; 80053; 82553; 83735; 83880; 84484; 85025; 85610; 85730; 86140; 99285; A9270; J1642; 93010; 99284

== ENCOUNTER 2019-02-25 16:15 | Emergency (ER) | payer MEDICARE, BC ==
[2019-02-25 16:46] VITALS: BP 161/84; PULSE 69
[2019-02-25] MEDS ORDERED: Sodium Chloride 0.9% 1,000 ML IV SCH (17:00)
--- NOTE | 2019-02-25 17:12 | EDM.PDOC ---
ED HPI GENERAL MEDICAL PROBLEM - General Chief Complaint: Gastrointestinal Problem Stated Complaint: CANT SWALLOW WATER Time Seen by Provider: 02/25/19 16:40 Source of Information: Reports: Patient, RN Notes Reviewed - History of Present Illness INITIAL COMMENTS - FREE TEXT/NARRATIVE: 78-year-old male comes in with difficulty swallowing. He has had difficulty with swallowing for about a year or so. In his daughter state that he did have endoscopy last spring about 5 or 6 months ago. At that time things were "okay". He was just started on chemotherapy about 8 days ago for "a couple of spots on his lung". He states that for a long time he has to avoid certain types of foods such as steak and that what he does eat he has to cut to or grind very carefully. He states it "became hard to swallow water last evening that continues today. Normally water and other fluids are not a problem for him. However he was able to eat solid foods for breakfast and lunch today without difficulty once again cutting and chewing very slowly and carefully. He has no chest pain or difficulty breathing at this time. No abdominal pain. There's been no vomiting. - Related Data Allergies Allergy/AdvReac Type Severity Reaction Status Date / Time azithromycin Allergy Anaphylactic Verified 02/25/19 16:39 Shock chlorhexidine Allergy Cannot Verified 02/25/19 16:39 Remember gatifloxacin [From Tequin] Allergy Anaphylactic Verified 02/25/19 16:39 Shock lansoprazole [From Prevacid] Allergy Anaphylactic Verified 02/25/19 16:39 Shock omeprazole [From Prilosec] Allergy Cannot Verified 02/25/19 16:39 Remember Penicillins Allergy Anaphylactic Verified 02/25/19 16:39 Shock Sulfa (Sulfonamide Allergy Rash Verified 02/25/19 16:39 Antibiotics) Home Meds: Home Meds Albuterol Sulfate [Proair Hfa] 2 puff INH Q6H PRN 02/25/19 [History] Allopurinol [Zyloprim] 100 mg PO DAILY 02/25/19 [History] Aspirin [Aspirin EC] 325 mg PO DAILY 02/25/19 [History] Furosemide 20 mg PO DAILY 02/25/19 [History] Lutein/Minerals/Vit A,C & E [I-Jil] 1 tab PO DAILY 02/25/19 [History] Metoprolol Succinate 50 mg PO DAILY 02/25/19 [History] Ranitidine [Zantac] 150 mg PO DAILY 02/25/19 [History] Sennosides/Docusate Sodium [Senna-Docusate Sodium Tablet] 1 tab PO DAILY [History] chlorproMAZINE [Thorazine] 25 mg PO DAILY 02/25/19 [History] traMADol [Ultram] 50 mg PO Q6H PRN 02/25/19 [History] Past Medical History HEENT History: Reports: Glaucoma, Macular Degeneration Other HEENT History: wears eyeglasses, has dentures Cardiovascular History: Reports: Hypertension Respiratory History: Reports: Bronchitis, Recurrent, COPD, SOB Other Respiratory History: stress asthma Gastrointestinal History: Reports: Bowel Obstruction, GERD Other Gastrointestinal History: esophagitis, liver mass, dysphagia, ileus, peg tube placement, small bowel obstruction Genitourinary History: Reports: Chronic Renal Insuffiency Other Genitourinary History: Rt nephrectomy [employer] ENGINEER History: Reports: None Musculoskeletal History: Reports: Arthritis Other Musculoskeletal History: dupuytren's contracture Neurological History: Reports: TIA Other Neuro History: ?TIAs many years ago Psychiatric History: Reports: Depression Hematologic History: Reports: None Immunologic History: Reports: None Oncologic (Cancer) History: Reports: Colon Other Oncologic History: off of chemo for the past 9 months, with james cath L chest Dermatologic History: Reports: Psoriasis - Infectious Disease History Infectious Disease History: Reports: Measles, Mumps - Past Surgical History Head Surgeries/Procedures: Reports: None HEENT Surgical History: Reports: Cataract Surgery, Naso-Sinus Surgery Cardiovascular Surgical History: Reports: Vascular Surgery Respiratory Surgical History: Reports: Tracheostomy, Other (See Below) GI Surgical History: Reports: Appendectomy, Cholecystectomy, Colon, Colonoscopy , Colostomy, EGD, Other (See Below) Male Surgical History: Reports: Nephrectomy Other Male Surgeries/Procedures: right kidney removed Endocrine Surgical History: Reports: None Neurological Surgical History: Reports: None Musculoskeletal Surgical History: Reports: Other (See Below) Dermatological Surgical History: Reports: Skin Biopsy Social & Family History - Family History Family Medical History: Noncontributory GI: Reports: Other (See Below) Other Oncologic Family History: aunt had brain cancer - Caffeine Use Caffeine Use: Reports: Soda Other Caffeine Use: occasional - Living Situation & Occupation Living situation: Reports: , with Spouse 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) ED ROS GENERAL - Review of Systems Review Of Systems: See Below Constitutional: Denies: Fever, Chills, Diaphoresis HEENT: Denies: Throat Pain Respiratory: Denies: Shortness of Breath Cardiovascular: Denies: Chest Pain GI/Abdominal: Reports: Other (Difficulty swallowing). Denies: Abdominal Pain, Nausea, Vomiting Musculoskeletal: Denies: Back Pain Skin: Reports: No Symptoms Neurological: Reports: No Symptoms ED EXAM, GI/ABD - Physical Exam Exam: See Below General Appearance: Alert, No Apparent Distress Throat/Mouth: Normal Inspection, Normal Oropharynx Head: Atraumatic Neck: Supple Respiratory/Chest: No Respiratory Distress, Lungs Clear, Normal Breath Sounds Cardiovascular: Regular Rate, Rhythm GI/Abdominal Exam: Soft, Non-Tender. No: Guarding Extremities: Normal Inspection. No: Pedal Edema, Leg Pain Skin Exam: Warm, Dry, Normal Color Course - Vital Signs Last Recorded V/S: Last Vital Signs Temp 97.8 F 02/25/19 16:35 Pulse 69 02/25/19 16:35 Resp 18 02/25/19 16:35 BP 161/84 H 02/25/19 16:35 Pulse Ox 99 02/25/19 16:35 - Orders/Labs/Meds Orders: Active Orders 24 hr Category Date Time Status Chest 1V Frontal [CR] Stat Exams 02/25/19 17:03 Taken Sodium Chloride 0.9% [Normal Saline] 1,000 ml Med 02/25/19 17:00 Active IV ONETIME Medication Orders Sodium Chloride (Normal Saline) 1,000 mls @ 999 mls/hr IV ONETIME [facility] Last Admin: 02/25/19 17:14 Dose: 999 mls/hr Labs: Laboratory Tests 02/25/19 02/25/19 Range/Units 17:10 17:10 WBC 5.20 (4.23-9.07) K/mm3 RBC 4.21 L (4.63-6.08) M/mm3 Hgb 11.8 L (13.7-17.5) gm/dl Hct 35.4 L (40.1-51.0) % MCV 84.1 (79.0-92.2) fl MCH 28.0 (25.7-32.2) pg MCHC 33.3 (32.2-35.5) g/dl RDW Std Deviation 40.8 (35.1-43.9) fL Plt Count 160 L (163-337) K/mm3 MPV 10.7 (9.4-12.3) fl Neut % (Auto) 55.1 (34.0-67.9) % Lymph % (Auto) 23.7 (21.8-53.1) % [place] % (Auto) 15.0 H (5.3-12.2) % Eos % (Auto) 5.8 (0.8-7.0) Baso % (Auto) 0.2 (0.1-1.2) % Neut # (Auto) 2.87 (1.78-5.38) K/mm3 Lymph # (Auto) 1.23 L (1.32-3.57) K/mm3 [place] # (Auto) 0.78 (0.30-0.82) K/mm3 Eos # (Auto) 0.30 (0.04-0.54) K/mm3 Baso # (Auto) 0.01 (0.01-0.08) K/mm3 Sodium 136 (136-145) mEq/L Potassium 4.1 (3.5-5.1) mEq/L Chloride 104 (98-107) mEq/L Carbon Dioxide 18 L (21-32) mEq/L Anion Gap 18.1 H (5-15) BUN 37 H (7-18) mg/dL Creatinine 1.5 H (0.7-1.3) mg/dL Est Cr Clr Drug Dosing 38.63 mL/min Estimated GFR (MDRD) 45 (>60) mL/min BUN/Creatinine Ratio 24.7 H (14-18) Glucose 86 (83-115) mg/dL Calcium 8.2 L (8.5-10.1) mg/dL Total Bilirubin 0.2 (0.2-1.0) mg/dL AST 15 (15-37) U/L ALT 13 L (16-63) U/L Alkaline Phosphatase 100 (46-116) U/L Total Protein 6.0 L (6.4-8.2) g/dl Albumin 2.9 L (3.4-5.0) g/dl Globulin 3.1 gm/dL Albumin/Globulin Ratio 0.9 L (1-2) Meds: Medications Generic Name Dose Route Start Last Admin Trade Name Quiana PRN Reason Stop Dose Admin Sodium Chloride 1,000 mls @ 999 mls/hr 02/25/19 17:00 02/25/19 17:14 Normal Saline IV 999 mls/hr ONETIME [facility] Administration - Re-Assessments/Exams Free Text/Narrative Re-Assessment/Exam: 02/25/19 18:38 Anion gap is mildly elevated indicating probable mild dehydration. In 1 L of normal saline. Him drink water and he was able to drink the water one or 2 swallows at a time. No nausea or vomiting with that. He states that he is scheduled to see Dr. George, General Surgeon at [facility] in about 8 days. He and his daughter are hopeful that this can be moved up. Discharge instructions as documented. Departure - Departure Time of Disposition: 18:30 Disposition: Home, Self-Care 01 Condition: Fair Clinical Impression: Difficulty swallowing liquids, Dehydration - Discharge Information Referrals: Brendan Caldera MD [Primary Care Provider] - Forms: ED Department Discharge Additional Instructions: Continue to drink plenty of water to maintain hydration. Continue current medications as prescribed. Call Dr. Bae's office tomorrow morning and see if it is possible to see Dr. George or get scheduled for endoscopy more quickly. Return to the ED if you do become totally obstructed, unable to eat or drink without vomiting. - My Orders Last 24 Hours: My Active Orders 02/25/19 17:00 Sodium Chloride 0.9% [Normal Saline] 1,000 ml IV ONETIME 02/25/19 17:03 Chest 1V Frontal [CR] Stat - Assessment/Plan Last 24 Hours: My Active Orders 02/25/19 17:00 Sodium Chloride 0.9% [Normal Saline] 1,000 ml IV ONETIME 02/25/19 17:03 Chest 1V Frontal [CR] Stat
--- NOTE | 2019-02-26 08:35 | CR ---
Chest: Portable view of the chest was obtained. Comparison: Prior chest x-ray of 11/09/18. Scattered nodular densities are noted. Findings are compatible with pulmonary metastatic disease. Findings are more prominent than on previous exam. Left-sided infusion port is seen. Heart size and mediastinum appears within normal limits for portable technique. Bony structures are grossly intact. Surgical clips are seen within the upper abdomen. Impression: 1. Nodular densities within the chest compatible with metastatic disease. Findings are more prominent than on previous exam. 2. Left-sided infusion port 3. Nothing acute is otherwise appreciated on portable chest x-ray. Diagnostic code #9
== END 2019-02-25 18:50 | disposition home or self-care (01) ==
LOC: JD.ED 16:15
DX: R13.10 Dysphagia, unspecified (principal); E86.0 Dehydration; J44.9 Chronic obstructive pulmonary disease, unspecified; I12.9 Hypertensive chronic kidney disease with stage 1 through stage 4 chronic kidney disease, or unspecified chronic kidney disease; N18.9 Chronic kidney disease, unspecified; J45.909 Unspecified asthma, uncomplicated; Z86.73 Personal history of transient ischemic attack (TIA), and cerebral infarction without residual deficits; Z88.1 Allergy status to other antibiotic agents; Z88.0 Allergy status to penicillin; Z88.2 Allergy status to sulfonamides; Z79.82 Long term (current) use of aspirin
CPT/HCPCS: 36415; 71045; 80053; 85025; 96360; 99284; J1642; J7040

== ENCOUNTER 2019-02-26 12:16 | Day surgery (SDC) | payer MEDICARE, BC ==
[~2019-02-26 12:16] MED LIST changes: +Dexamethasone 4 MG/ML 5 ML MDV ONE; -Lactated Ringers 1,000 ML IV SCH; -Lidocaine 1%/Sod Bicarbonate in NS 8.4% 1 ML Syringe IDERM PRN; +Midazolam 1 MG/ML 2 ML SDV ONE; +Ondansetron 4 MG/2 ML SDV ONE; -Sodium Chloride 0.9% 10 ML Syringe FLUSH PRN
[2019-02-26] MEDS ORDERED: Lidocaine 1%/Sod Bicarbonate in NS 8.4% 1 ML Syringe IDERM PRN (12:42)
[2019-02-26] MEDS ORDERED: Sodium Chloride 0.9% 10 ML Syringe FLUSH PRN (12:42)
[2019-02-26] MEDS ORDERED: Albuterol 0.083% 2.5 MG/3 ML Neb Soln ONE (12:42)
[2019-02-26] MEDS ORDERED: Albuterol 0.083% 2.5 MG/3 ML Neb Soln NEB SCH (12:45)
[2019-02-26] MEDS ORDERED: Sodium Chloride 0.9% 1,000 ML IV SCH (12:45)
--- NOTE | 2019-02-26 13:02 | PCM.PREANE ---
Preanesthetic Assessment - Anesthesia/Transfusion/Family Hx Anesthesia History: Prior Anesthesia Without Reaction Family History of Anesthesia Reaction: No Transfusion History: No Prior Transfusion(s) - Review of Systems General: No Symptoms Pulmonary: No Symptoms Cardiovascular: No Symptoms Gastrointestinal: No Symptoms Neurological: No Symptoms Other: Reports: None - Physical Assessment NPO Status Date: 02/26/19 NPO Status Time: 07:00 Vital Signs: Last Vital Signs Temp Pulse Resp BP Pulse Ox 99 02/26/19 12:47 - Allergies Allergies/Adverse Reactions: Allergies Allergy/AdvReac Type Severity Reaction Status Date / Time azithromycin Allergy Anaphylactic Verified 02/25/19 16:39 Shock chlorhexidine Allergy Cannot Verified 02/25/19 16:39 Remember gatifloxacin [From Tequin] Allergy Anaphylactic Verified 02/25/19 16:39 Shock lansoprazole [From Prevacid] Allergy Anaphylactic Verified 02/25/19 16:39 Shock omeprazole [From Prilosec] Allergy Cannot Verified 02/25/19 16:39 Remember Penicillins Allergy Anaphylactic Verified 02/25/19 16:39 Shock Sulfa (Sulfonamide Allergy Rash Verified 02/25/19 16:39 Antibiotics) PreAnesthesia Questionnaire HEENT History: Reports: Glaucoma, Macular Degeneration Other HEENT History: wears eyeglasses, has dentures Cardiovascular History: Reports: Hypertension Respiratory History: Reports: Bronchitis, Recurrent, COPD, SOB Other Respiratory History: stress asthma Gastrointestinal History: Reports: Bowel Obstruction, GERD Other Gastrointestinal History: esophagitis, liver mass, dysphagia, ileus, peg tube placement, small bowel obstruction Genitourinary History: Reports: Chronic Renal Insuffiency, Other (See Below) ( pt unsure which side nephrectomy) Other Genitourinary History: Rt nephrectomy POWER 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: 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: 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 Musculoskeletal History: Reports: Arthritis Other Musculoskeletal History: dupuytren's contracture Neurological History: Reports: TIA (without residual) Other Neuro History: ?TIAs many years ago Psychiatric History: Reports: Depression Hematologic History: Reports: None Immunologic History: Reports: None Oncologic (Cancer) History: Reports: Colon, Liver, Lung Other Oncologic History: off of chemo for the past 9 months, with james cath L chest Dermatologic History: Reports: Psoriasis - Infectious Disease History Infectious Disease History: Reports: Measles, Mumps - Past Surgical History Head Surgeries/Procedures: Reports: None HEENT Surgical History: Reports: Cataract Surgery, Naso-Sinus Surgery Cardiovascular Surgical History: Reports: Vascular Surgery Respiratory Surgical History: Reports: Tracheostomy, Other (See Below) GI Surgical History: Reports: Appendectomy, Cholecystectomy, Colon, Colonoscopy , Colostomy, EGD, Other (See Below) Male Surgical History: Reports: Nephrectomy Other Male Surgeries/Procedures: right kidney removed Endocrine Surgical History: Reports: None Neurological Surgical History: Reports: None Musculoskeletal Surgical History: Reports: Other (See Below) Oncologic Surgical History: Reports: Other (See Below) (james cath) Dermatological Surgical History: Reports: Skin Biopsy - SUBSTANCE USE Smoking Status *Q: Former Smoker - HOME MEDS Home Medications: Home Meds Albuterol Sulfate [Proair Hfa] 2 puff INH Q6H PRN 02/25/19 [History] Allopurinol [Zyloprim] 100 mg PO DAILY 02/25/19 [History] Aspirin [Aspirin EC] 325 mg PO DAILY 02/25/19 [History] Furosemide 20 mg PO DAILY 02/25/19 [History] Lutein/Minerals/Vit A,C & E [I-Jil] 1 tab PO DAILY 02/25/19 [History] Metoprolol Succinate 50 mg PO DAILY 02/25/19 [History] Ranitidine [Zantac] 150 mg PO DAILY 02/25/19 [History] Sennosides/Docusate Sodium [Senna-Docusate Sodium Tablet] 1 tab PO DAILY [History] chlorproMAZINE [Thorazine] 25 mg PO DAILY 02/25/19 [History] traMADol [Ultram] 50 mg PO Q6H PRN 02/25/19 [History] - CURRENT (IN HOUSE) MEDS Current Meds: Current Medications Albuterol (Proventil Neb Soln) 2.5 mg NEB ONETIME SHANNON Stop: 02/26/19 18:00 Sodium Chloride (Normal Saline) 1,000 mls @ 125 mls/hr IV ASDIRECTED SHANNON Lidocaine/Sodium Bicarbonate (Buffered Lidocaine 1% In Ns 8.4%) 0.25 ml IDERM ONETIME PRN PRN Reason: Prior to IV Start Sodium Chloride (Saline Flush) 10 ml FLUSH ASDIRECTED PRN PRN Reason: Keep Vein Open Discontinued Medications Albuterol (Proventil Neb Soln) Confirm Administered Dose 2.5 mg .ROUTE .STK-MED ONE Stop: 02/26/19 12:43 Last Admin: 02/26/19 12:45 Dose: 2.5 mg Dexamethasone (Dexamethasone) Confirm Administered Dose 20 mg .ROUTE .STK-MED ONE Stop: 02/26/19 12:02 Fentanyl (Sublimaze) Confirm Administered Dose 100 mcg .ROUTE .ST-MED ONE Stop: 02/26/19 12:09 Lidocaine HCl (Xylocaine-Mpf 1%) Confirm Administered Dose 4 mls @ as directed .ROUTE .ST-MED ONE Stop: 02/26/19 12:02 Midazolam HCl (Versed 1 Mg/Ml) Confirm Administered Dose 2 mg .ROUTE .ST-MED ONE Stop: 02/26/19 12:02 Ondansetron HCl (Zofran) Confirm Administered Dose 4 mg .ROUTE .STK-MED ONE Stop: 02/26/19 12:02 Propofol (Diprivan 20 Ml) Confirm Administered Dose 200 mg .ROUTE .STK-MED ONE Stop: 02/26/19 12:02
[2019-02-26] MEDS ORDERED: Lidocaine 4% Top Soln 50 ML Bottle ONE (13:28)
--- NOTE | 2019-02-26 14:40 | PCM48HPAN ---
Post Anesthesia Note - EVALUATION WITHIN 48HRS OF ANESTHETIC Vital Signs in Normal Range: Yes Patient Participated in Evaluation: Yes Respiratory Function Stable: Yes Airway Patent: Yes Cardiovascular Function Stable: Yes Hydration Status Stable: Yes Pain Control Satisfactory: Yes Nausea and Vomiting Control Satisfactory: Yes Mental Status Recovered: Yes Vital Signs: Last Vital Signs 1430 110/71 64 18 99% 97.7F
[2019-02-26 15:12] VITALS: BP 118/73; PULSE 61
--- NOTE | 2019-02-26 15:16 | OR ---
DATE OF OPERATION: 02/26/2019 SURGEON: Miranda George MD PREOPERATIVE DIAGNOSIS: Dysphagia. POSTOPERATIVE DIAGNOSIS: Distal esophageal stricture. OPERATION PERFORMED: 1. Diagnostic esophagogastroduodenoscopy with biopsies. 2. Dilation of distal esophageal stricture. ESTIMATED BLOOD LOSS: Minimal. INDICATIONS: Indication and consent: The patient is a 78-year-old male with metastatic colorectal cancer to the liver and lungs. The patient has had a history of esophageal problems presenting as food impaction and inability to swallow solids for many months. The last time the patient had food impaction was in October 2018. The patient underwent EGD with disimpaction at that time. The patient was doing well at home with mostly pureed or soft diet. However, in the last couple of days, the patient has not been able to tolerate soft diet. He reports that even water was having a hard time going down. The patient presented to the emergency department last night, was evaluated, and was sent to my clinic for further assessment. I saw the patient in clinic and offered the patient diagnostic EGD due to his current symptoms. The patient agreed to proceed with the procedure. We discussed in detail the risks, benefits, and alternatives including bleeding since the patient was on aspirin daily 325 mg, perforation, and esophageal tear due to dilation. The patient understood and agreed to proceed with the procedure. Informed consent was obtained. DESCRIPTION OF PROCEDURE: The patient was taken to the procedure room, placed in a supine position. Following induction of monitored anesthesia, the patient's position was turned to left lateral decubitus position. Then, after a formal time-out was performed, the scope was advanced through the esophagus. As we advanced the scope through the esophagus, we noted that there was some stricture at 32-35 cm from the incisors. Stricture was just before the Z-line in the distal esophagus. It appeared to be a benign stricture. There was no fungating mass at this site. The stricture was traversed with some difficulty. I went to the stomach and down to the duodenum. There were punctate blood clots scattered throughout the stomach, and there was no active source of bleeding, and so I presumed this was due to gastritis. I advanced the scope past the pylorus into the bulb and 2nd portion of the duodenum. All this area appeared to be normal. The antrum was biopsied due to the gastritis and then upon retroflexion, we noted hiatal hernia, but there were no other abnormalities, no ulcers, and no bleeding stigmata. Then, the scope was withdrawn slowly until we got superior to the area of stricture. Decision was made to proceed with dilation. We dilated the stricture with 2 balloons, the 1st balloon dilated the stricture from 10, 11, and 12 mm and this dilation was without difficulty. Then, we proceeded with dilating the stricture with 12, 13.5, and 15 mm balloon. This produced pretty significant result with wide open esophagus after dilation. Then, the stricture was re-inspected. There was no active bleeding. The stricture was wide enough to pass the scope to and fro. At this point, the scope was withdrawn. There were some white plaques in the esophagus. Therefore, the mid esophagus was biopsied for further evaluation. Then, the scope was withdrawn, and the patient was woken from anesthesia and taken to the PACU for recovery. The patient tolerated the procedure well, and we will wait for pathology results. In the meantime, the patient should stay on a soft diet and pureed diet as tolerated. ANESTHESIA: SASHA /[id number] MTDAlex
== END 2019-02-26 15:10 | disposition home or self-care (01) ==
LOC: JD.SDS 12:16
PROVIDERS: ATTEND Surgery
DX: K22.2 Esophageal obstruction (principal); K21.0 Gastro-esophageal reflux disease with esophagitis; K22.8 Other specified diseases of esophagus; K44.9 Diaphragmatic hernia without obstruction or gangrene; I10 Essential (primary) hypertension; C18.9 Malignant neoplasm of colon, unspecified; C78.7 Secondary malignant neoplasm of liver and intrahepatic bile duct; C78.00 Secondary malignant neoplasm of unspecified lung; Z88.0 Allergy status to penicillin; Z88.8 Allergy status to other drugs, medicaments and biological substances; Z88.2 Allergy status to sulfonamides; Z88.1 Allergy status to other antibiotic agents; Z87.891 Personal history of nicotine dependence; Z79.82 Long term (current) use of aspirin; Z79.899 Other long term (current) drug therapy
CPT/HCPCS: 43239; 43249; 94640; A9270; J1100; J1642; J2001; J2250; J2405; J2704; J3010; J7040; 00731

== ENCOUNTER 2019-03-20 10:48 | Emergency (ER) | payer MEDICARE, BC ==
[2019-03-20 10:57] VITALS: BP 185/86; PULSE 79
--- NOTE | 2019-03-20 11:19 | EDM.PDOC ---
<Devin Tomas - Last Filed: 03/20/19 12:03> ED HPI GENERAL MEDICAL PROBLEM - General Chief Complaint: ENT Problem Stated Complaint: FB STUCK IN ESOPHAGUS SENT BY TORREZ Time Seen by Provider: 03/20/19 10:55 Source of Information: Reports: Patient, Family History Limitations: Reports: No Limitations - History of Present Illness INITIAL COMMENTS - FREE TEXT/NARRATIVE: Patient is a 78 year old male with previous diagnosis of hiatal hernia, GERD and hypertension who presents today for a 3 hour history of dysphagia. The patient was previous diagnosed with a hiatal hernia with widening of the esophageal sphincter per patient with Dr. Berger approximately 6 weeks ago. The patient has had multiple episodes of dysphagia since, but these symptoms usually resolve within 30 minutes to 1 hour. Normally, the patient is able to drink water, however, today the patient noted immediate emesis of a few bites of toast and orange when he tried to eat at approximately 8 am this morning. He also complains that it feels like there is something stuck in his lower esophagus. The patient does not recall any bile in his vomit. The patient since has been unable to keep down water. He has had increased belching, however he denies any nausea, hematemesis, constipation or diarrhea or changes in appetite. He has not noted any blood in his stool. He denies abdominal pain or cough. The patient does have a history of acid reflux that was previously managed with loratadine, however due to the recall the patient has attempted one day of pepsid. He does report some lightheadedness from this medication. The patient has previously managed his hiatal hernia with changes in diet. He also reports that he has been unable to take his home medication this morning. Onset: Sudden Onset Date: 03/20/19 Onset Time: 08:00 Duration: Hour(s): - Related Data Allergies Allergy/AdvReac Type Severity Reaction Status Date / Time azithromycin Allergy Anaphylactic Verified 03/20/19 10:57 Shock gatifloxacin [From Tequin] Allergy Anaphylactic Verified 03/20/19 10:57 Shock lansoprazole [From Prevacid] Allergy Anaphylactic Verified 03/20/19 10:57 Shock omeprazole [From Prilosec] Allergy Cannot Verified 03/20/19 10:57 Remember Penicillins Allergy Anaphylactic Verified 03/20/19 10:57 Shock Sulfa (Sulfonamide Allergy Rash Verified 03/20/19 10:57 Antibiotics) Home Meds: Home Meds Albuterol Sulfate [Proair Hfa] 2 puff INH Q6H PRN 02/25/19 [History] Allopurinol [Zyloprim] 50 mg PO DAILY 02/25/19 [History] Aspirin [Aspirin EC] 325 mg PO BID PRN 02/25/19 [History] Furosemide 20 mg PO DAILY 02/25/19 [History] Lutein/Minerals/Vit A,C & E [I-Jil] 1 tab PO DAILY 02/25/19 [History] Metoprolol Succinate 50 mg PO DAILY 02/25/19 [History] Ranitidine [Zantac] 150 mg PO BID 02/25/19 [History] Sennosides/Docusate Sodium [Senna-Docusate Sodium Tablet] 1 - 2 tab PO DAILY 02/05 [History] Acetaminophen [Acetaminophen Extra Strength] 500 mg PO Q6H PRN 02/26/19 [History ] Ondansetron [Zofran] 4 mg PO Q8H PRN 02/26/19 [History] Past Medical History HEENT History: Reports: Glaucoma, Macular Degeneration Other HEENT History: wears eyeglasses, has dentures Cardiovascular History: Reports: Hypertension Respiratory History: Reports: Bronchitis, Recurrent, COPD, SOB Other Respiratory History: stress asthma Gastrointestinal History: Reports: Bowel Obstruction, GERD Other Gastrointestinal History: esophagitis, liver mass, dysphagia, ileus, peg tube placement, small bowel obstruction Genitourinary History: Reports: Chronic Renal Insuffiency, Other (See Below) Other Genitourinary History: Rt nephrectomy 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 Musculoskeletal History: Reports: Arthritis Other Musculoskeletal History: dupuytren's contracture Neurological History: Reports: TIA Other Neuro History: ?TIAs many years ago Psychiatric History: Reports: Depression Endocrine/Metabolic History: Reports: None Hematologic History: Reports: None Immunologic History: Reports: None Oncologic (Cancer) History: Reports: Colon, Liver, Lung Other Oncologic History: off of chemo for the past 9 months, with james cath L chest Dermatologic History: Reports: Psoriasis - Infectious Disease History Infectious Disease History: Reports: Measles, Mumps - Past Surgical History Head Surgeries/Procedures: Reports: None HEENT Surgical History: Reports: Cataract Surgery, Naso-Sinus Surgery Cardiovascular Surgical History: Reports: Vascular Surgery Respiratory Surgical History: Reports: Tracheostomy, Other (See Below) GI Surgical History: Reports: Appendectomy, Cholecystectomy, Colon, Colonoscopy , Colostomy, EGD, Other (See Below) Male Surgical History: Reports: Nephrectomy Other Male Surgeries/Procedures: right kidney removed Endocrine Surgical History: Reports: None Neurological Surgical History: Reports: None Musculoskeletal Surgical History: Reports: Other (See Below) Oncologic Surgical History: Reports: Other (See Below) Dermatological Surgical History: Reports: Skin Biopsy Social & Family History - Family History Family Medical History: Noncontributory GI: Reports: Other (See Below) Other Oncologic Family History: aunt had brain cancer - Tobacco Use Smoking Status *Q: Never Smoker Second Hand Smoke Exposure: No - Caffeine Use Caffeine Use: Reports: Soda Other Caffeine Use: occasional - Living Situation & Occupation Living situation: Reports: , with Spouse 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) ED ROS ENT - Review of Systems Review Of Systems: See Below Constitutional: Reports: No Symptoms. Denies: Fever HEENT: Reports: No Symptoms. Denies: Vision Change Respiratory: Reports: No Symptoms Cardiovascular: Reports: No Symptoms GI/Abdominal: Reports: Vomiting. Denies: Abdominal Pain, Black Stool, Bloody Stool, Constipation, Diarrhea, Hematemesis, Hematochezia : Reports: No Symptoms Musculoskeletal: Reports: No Symptoms Skin: Reports: No Symptoms Neurological: Reports: No Symptoms Psychiatric: Reports: No Symptoms ED EXAM, ENT - Physical Exam Exam: See Below Exam Limited By: No Limitations General Appearance: Alert, WD/WN, No Apparent Distress Ears: Normal External Exam, Hearing Grossly Normal Nose: Normal Inspection, No Blood Mouth/Throat: Normal Inspection, Normal Lips, Normal Teeth Head: Atraumatic, Normocephalic Respiratory/Chest: No Respiratory Distress, Lungs Clear, Normal Breath Sounds, No Accessory Muscle Use, Chest Non-Tender, Other (Belching noted with deep inspiration and expiration) Cardiovascular: Normal Peripheral Pulses, Regular Rate, Rhythm, No Edema, No Gallop, No JVD, No Murmur, No Rub GI/Abdominal: Normal Bowel Sounds, Soft, No Organomegaly, No Distention, No Abnormal Bruit, No Mass, Tender (Mild epigastric tenderness ) Back: Normal Inspection Extremities: Normal Inspection, Non-Tender, No Pedal Edema, Normal Capillary Refill Neurological: Alert, Oriented Psychiatric: Normal Affect, Normal Mood Skin: Warm, Dry, Intact, Normal Color, No Rash Course - Vital Signs Last Recorded V/S: Last Vital Signs Temp 97.6 F 03/20/19 10:56 Pulse 79 03/20/19 10:56 Resp 20 03/20/19 10:56 BP 185/86 H 03/20/19 10:56 Pulse Ox 100 03/20/19 10:56 Departure - Departure Disposition: Home, Self-Care 01 Clinical Impression: Foreign body in esophagus Qualifiers: Encounter type: initial encounter Qualified Code(s): T18.108A - Unspecified foreign body in esophagus causing other injury, initial encounter - Discharge Information Referrals: Brendan Caldera MD [Primary Care Provider] - Miranda George MD [Physician] - 1 Week Forms: ED Department Discharge Additional Instructions: Eat a liquid diet for a couple of days and follow up with Dr George. Please return if you are worse. <Lorenzo Freedman - Last Filed: 03/20/19 12:22> Course - Re-Assessments/Exams Free Text/Narrative Re-Assessment/Exam: 03/20/19 12:17 I examined the patient and I agree with Devin's assessment and plan. I had the patient try some water and he kept that down. I also gave him a diet coke and that stayed down. I do not have to give him any medicine but I will have him follow up with Dr Reddy and do a liquid diet for a few days. Departure - Departure Time of Disposition: 12:20 Condition: Good - Discharge Information *PRESCRIPTION DRUG MONITORING PROGRAM REVIEWED*: No *COPY OF PRESCRIPTION DRUG MONITORING REPORT IN PATIENT HEATHER: No
== END 2019-03-20 12:32 | disposition home or self-care (01) ==
LOC: JD.ED 10:48
DX: T18.128A Food in esophagus causing other injury, initial encounter (principal); K21.9 Gastro-esophageal reflux disease without esophagitis; I12.9 Hypertensive chronic kidney disease with stage 1 through stage 4 chronic kidney disease, or unspecified chronic kidney disease; N18.9 Chronic kidney disease, unspecified; Z88.1 Allergy status to other antibiotic agents; Z88.8 Allergy status to other drugs, medicaments and biological substances; Z88.0 Allergy status to penicillin; Z88.2 Allergy status to sulfonamides; Z79.82 Long term (current) use of aspirin; Z79.899 Other long term (current) drug therapy; Z86.73 Personal history of transient ischemic attack (TIA), and cerebral infarction without residual deficits
CPT/HCPCS: 99283

== ENCOUNTER → 2019-07-30 | Day surgery (SDC) | payer MEDICARE, BC ==
[~2019-07-30] MED LIST changes: -Dexamethasone 4 MG/ML 5 ML MDV ONE; +Glucagon,Human Recombinant 1 MG Vial IVPUSH ONE; +HYDROmorphone 0.5 MG/0.5 ML Syringe IVPUSH ONE; +Hyoscyamine 0.125 MG Tab.SL SL ONE; +Metoclopramide 10 MG/2 ML SDV IVPUSH ONE; +Sodium Chloride 0.9% 1,000 ML IV SCH; +Succinylcholine/Sod PF 100 MG/5 ML SYRINGE IV ONE
--- NOTE | 2019-07-30 18:52 | EDM.PDOC ---
ED HPI GENERAL MEDICAL PROBLEM - General Chief Complaint: Gastrointestinal Problem Stated Complaint: BLOCKAGE IN THROAT Time Seen by Provider: 07/30/19 18:40 Source of Information: Reports: Patient History Limitations: Reports: No Limitations - History of Present Illness INITIAL COMMENTS - FREE TEXT/NARRATIVE: Salima 8-year-old male presents to the ED with a foreign body obstruction in the lower portion of his esophagus. He can feel pain right at the pit of his stomach. This is happened several times in the past but it usually has gone through. He has required an EGD to help remove a food bolus last time was about a year ago. He is due for follow-up with Dr. Aylin Maria in the near future to have an EGD and likely esophageal dilatation. Today he was eating pizza with pepperoni on it and he chews it up into very small pieces and he felt to get stuck in his lower esophagus. Subsequently he has drank water but regurgitates it almost right away. Food bolus got stuck approximately half hour before coming to the ED. Hurts to take a deep breath when he stretches out his diaphragm. Onset: Today Onset Date: 07/30/19 Onset Time: 17:55 Duration: Minutes: Location: Reports: Chest (He has pressure at the pit of his stomach lower retrosternal area i.e. esophageal gastric junction.) Quality: Reports: Ache ( Knows that he has a food bolus stuck in this area.), Pressure Severity: Moderate (Pain is 6 out of 10. Worsened slightly with deep breathing) Improves with: Reports: None Worsens with: Reports: Other Context: Reports: Other (Piece of pizza that he was eating got stuck at suppertime in the lower esophageal sphincter.). Denies: Activity (Breathing can make it worse), Exercise, Lifting, Sick Contact, Trauma Associated Symptoms: Reports: No Other Symptoms, Chest Pain, Loss of Appetite, Malaise. 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 (see below) Upper Abdomen Pain Score (Numeric/FACES): 5 - Related Data Allergies Allergy/AdvReac Type Severity Reaction Status Date / Time azithromycin Allergy Anaphylactic Verified 03/20/19 10:57 Shock gatifloxacin [From Tequin] Allergy Anaphylactic Verified 03/20/19 10:57 Shock lansoprazole [From Prevacid] Allergy Anaphylactic Verified 03/20/19 10:57 Shock omeprazole [From Prilosec] Allergy Cannot Verified 03/20/19 10:57 Remember Penicillins Allergy Anaphylactic Verified 03/20/19 10:57 Shock Sulfa (Sulfonamide Allergy Rash Verified 03/20/19 10:57 Antibiotics) Home Meds: Home Meds Albuterol Sulfate [Proair Hfa] 2 puff INH Q6H PRN 02/25/19 [History] Aspirin [Aspirin EC] 325 mg PO BID PRN 02/25/19 [History] Furosemide 20 mg PO DAILY 02/25/19 [History] Lutein/Minerals/Vit A,C & E [I-Jil] 1 tab PO DAILY 02/25/19 [History] Metoprolol Succinate 50 mg PO DAILY 02/25/19 [History] Ranitidine [Zantac] 150 mg PO BID 02/25/19 [History] Sennosides/Docusate Sodium [Senna-Docusate Sodium Tablet] 1 - 2 tab PO DAILY 02/05 [History] allopurinoL [Zyloprim] 50 mg PO DAILY 02/25/19 [History] Acetaminophen [Acetaminophen Extra Strength] 500 mg PO Q6H PRN 02/26/19 [History ] Ondansetron [Zofran] 4 mg PO Q8H PRN 02/26/19 [History] Past Medical History HEENT History: Reports: Glaucoma, Macular Degeneration Other HEENT History: wears eyeglasses, has dentures Cardiovascular History: Reports: Hypertension Respiratory History: Reports: Bronchitis, Recurrent, COPD, SOB Other Respiratory History: stress asthma Gastrointestinal History: Reports: Bowel Obstruction, GERD Other Gastrointestinal History: esophagitis, liver mass, dysphagia, ileus, peg tube placement, small bowel obstruction Genitourinary History: Reports: Chronic Renal Insuffiency, Other (See Below) Other Genitourinary History: Rt nephrectomy 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 WASTE TECHNICIAN History: Reports: None Musculoskeletal History: Reports: Arthritis Other Musculoskeletal History: dupuytren's contracture Neurological History: Reports: TIA Other Neuro History: ?TIAs many years ago Psychiatric History: Reports: Depression Endocrine/Metabolic History: Reports: None Hematologic History: Reports: None Immunologic History: Reports: None Oncologic (Cancer) History: Reports: Colon, Liver, Lung Other Oncologic History: off of chemo for the past 9 months, with james cath L chest Dermatologic History: Reports: Psoriasis - Infectious Disease History Infectious Disease History: Reports: Measles, Mumps - Past Surgical History Head Surgeries/Procedures: Reports: None HEENT Surgical History: Reports: Cataract Surgery, Naso-Sinus Surgery Cardiovascular Surgical History: Reports: Vascular Surgery Respiratory Surgical History: Reports: Tracheostomy, Other (See Below) GI Surgical History: Reports: Appendectomy, Cholecystectomy, Colon, Colonoscopy , Colostomy, EGD, Other (See Below) Male Surgical History: Reports: Nephrectomy Other Male Surgeries/Procedures: right kidney removed Endocrine Surgical History: Reports: None Neurological Surgical History: Reports: None Musculoskeletal Surgical History: Reports: Other (See Below) Oncologic Surgical History: Reports: Other (See Below) Dermatological Surgical History: Reports: Skin Biopsy Social & Family History - Family History Family Medical History: Noncontributory GI: Reports: Other (See Below) Other Oncologic Family History: aunt had brain cancer - Tobacco Use Smoking Status *Q: Never Smoker Second Hand Smoke Exposure: No - Caffeine Use Caffeine Use: Reports: Soda Other Caffeine Use: occasional - Recreational Drug Use Recreational Drug Use: No - Living Situation & Occupation Living situation: Reports: , with Spouse 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) ED ROS GENERAL - Review of Systems Review Of Systems: See Below Constitutional: Reports: Decreased Appetite. Denies: Fever, Chills, Malaise, Fatigue, Weight Loss HEENT: Reports: Glasses Respiratory: Reports: Shortness of Breath (His subjective shortness of breath is deep breathing makes the pain in the epigastrium worse.), Other (Has known mild COPD). Denies: Wheezing, Pleuritic Chest Pain, Cough, Sputum Cardiovascular: Reports: Chest Pain (Lower retrosternal epigastric area of the chest.), Dyspnea on Exertion. Denies: Blood Pressure Problem, Claudication, Edema, Lightheadedness, Orthopnea, Palpitations Endocrine: Reports: Fatigue GI/Abdominal: Reports: Abdominal Pain (Epigastric pressure discomfort that started about half ), Decreased Appetite, Nausea, Other (Agitation of any fluids that he tries to take orally.). Denies: Anorexia (hour ago while eating pizza), Black Stool, Bloody Stool, Constipation, Diarrhea, Difficulty Swallowing , Distension, Hematemesis, Hematochezia, Melena : Reports: Frequency, Other (Sure usually x2. Known BPH.) Musculoskeletal: Reports: Back Pain, Joint Pain (Sepsis neck at times) Skin: Reports: No Symptoms Neurological: Reports: No Symptoms Psychiatric: Reports: No Symptoms Hematologic/Lymphatic: Reports: No Symptoms Immunologic: Reports: No Symptoms ED EXAM, GI/ABD - Physical Exam Exam: See Below Exam Limited By: No Limitations General Appearance: Alert, WD/WN, Mild Distress, Other (Temperature is 36.9 with a heart rate of 90. Respiratory is 13 BP is 134/75 pulse ox is 95%) Throat/Mouth: Normal Inspection, Normal Lips, Normal Oropharynx Head: Atraumatic, Normocephalic Neck: Normal Inspection, Supple, Non-Tender, Full Range of Motion. No: Lymphadenopathy (L), Lymphadenopathy (R) Respiratory/Chest: No Respiratory Distress, Normal Breath Sounds, No Accessory Muscle Use, Decreased Breath Sounds (Decreased air entry lower lung perez bilaterally) Cardiovascular: Normal Peripheral Pulses, Regular Rate, Rhythm, No Edema, No Gallop, No Murmur GI/Abdominal Exam: Normal Bowel Sounds, Soft, No Organomegaly, Pelvis Stable, Tender Back Exam: Normal Inspection, Full Range of Motion. No: CVA Tenderness (L), CVA Tenderness (R) Extremities: Normal Inspection, Normal Range of Motion, Non-Tender Neurological: Alert, Oriented, CN II-XII Intact, Normal Cognition, No Motor/ Sensory Deficits EKG INTERPRETATION EKG Date: 07/30/19 Time: 20:25 Rhythm: NSR Meridian: LAD-Left Meridian Deviation P-Wave: Present QRS: Other ST-T: Normal QT: Prolonged (mildy prolonged) EKG Interpretation Comments: Abnormal ECG Course - Vital Signs Last Recorded V/S: Last Vital Signs Temp 36.8 C 07/30/19 23:00 Pulse 64 07/30/19 23:00 Resp 20 07/30/19 23:00 BP 125/68 07/30/19 23:00 Pulse Ox 96 07/30/19 23:00 - Orders/Labs/Meds Orders: Active Orders 24 hr Category Date Time Status Admission Status [Patient Status] [ADT] Routine ADT 07/30/19 21:25 Active Communication Order [RC] ROUTINE Care 07/30/19 22:37 Active Cooling Warming Measures [RC] ASDIRECTED Care 07/30/19 22:37 Active EKG Documentation Completion [RC] STAT Care 07/30/19 20:15 Active Implanted Port Access [RC] ASDIRECTED Care 07/30/19 19:11 Active Notify Provider [RC] ASDIRECTED Care 07/30/19 22:37 Active Oxygen Therapy [RC] ASDIRECTED Care 07/30/19 22:37 Active Pulse Oximetry [RC] ASDIRECTED Care 07/30/19 22:37 Active Ready for Discharge [RC] PER UNIT ROUTINE Care 07/30/19 22:45 Active Vital Signs [RC] Q15M Care 07/30/19 22:37 Active Heparin Sodium [Heparin Lock Flush 100 Units/ML] Med 07/30/19 22:45 Active 500 units FLUSH ASDIRECTED PRN Sodium Chloride 0.9% [Normal Saline] 1,000 ml Med 07/30/19 18:45 Active IV ASDIRECTED Schedule Procedure [COMM] Stat Oth 07/30/19 21:25 Ordered Medication Orders Heparin Sodium (Porcine) (Heparin Lock Flush 100 Units/Ml) 500 units FLUSH ASDIRECTED PRN PRN Reason: Keep Vein Open Last Admin: 07/30/19 22:57 Dose: 500 units Sodium Chloride (Normal Saline) 1,000 mls @ 150 mls/hr IV ASDIRECTED [facility] Last Admin: 07/30/19 19:33 Dose: 150 mls/hr Labs: Laboratory Tests 07/30/19 07/30/19 07/30/19 Range/Units 19:26 19:26 19:26 WBC 7.12 (4.23-9.07) K/mm3 RBC 4.43 L (4.63-6.08) M/mm3 Hgb 12.1 L (13.7-17.5) gm/dl Hct 38.0 L (40.1-51.0) % MCV 85.8 (79.0-92.2) fl MCH 27.3 (25.7-32.2) pg MCHC 31.8 L (32.2-35.5) g/dl RDW Std Deviation 44.8 H (35.1-43.9) fL Plt Count 176 (163-337) K/mm3 MPV 10.8 (9.4-12.3) fl Neut % (Auto) 72.8 H (34.0-67.9) % Lymph % (Auto) 12.2 L (21.8-53.1) % Cross % (Auto) 8.4 (5.3-12.2) % Eos % (Auto) 6.2 (0.8-7.0) Baso % (Auto) 0.1 (0.1-1.2) % Neut # (Auto) 5.18 (1.78-5.38) K/mm3 Lymph # (Auto) 0.87 L (1.32-3.57) K/mm3 Cross # (Auto) 0.60 (0.30-0.82) K/mm3 Eos # (Auto) 0.44 (0.04-0.54) K/mm3 Baso # (Auto) 0.01 (0.01-0.08) K/mm3 PT 10.7 (9.7-12.0) SECONDS INR 0.98 APTT 33 H (22-31) SECONDS Sodium 142 (136-145) mEq/L Potassium 3.7 (3.5-5.1) mEq/L Chloride 108 H (98-107) mEq/L Carbon Dioxide 18 L (21-32) mEq/L Anion Gap 19.7 H (5-15) BUN 22 H (7-18) mg/dL Creatinine 1.3 (0.7-1.3) mg/dL Est Cr Clr Drug Dosing 44.58 mL/min Estimated GFR (MDRD) 53 (>60) mL/min BUN/Creatinine Ratio 16.9 (14-18) Glucose 151 H (83-115) mg/dL Calcium 8.0 L (8.5-10.1) mg/dL Total Bilirubin 0.2 (0.2-1.0) mg/dL AST 16 (15-37) U/L ALT 17 (16-63) U/L Alkaline Phosphatase 126 H (46-116) U/L Total Protein 6.3 L (6.4-8.2) g/dl Albumin 3.2 L (3.4-5.0) g/dl Globulin 3.1 gm/dL Albumin/Globulin Ratio 1.0 (1-2) Amylase 62 (20-160) U/L Meds: Medications Generic Name Dose Route Start Last Admin Trade Name Quiana PRN Reason Stop Dose Admin Heparin Sodium (Porcine) 500 units 07/30/19 22:45 07/30/19 22:57 Heparin Lock Flush 100 Units/Ml FLUSH 500 units ASDIRECTED PRN Administration Keep Vein Open Sodium Chloride 1,000 mls @ 150 mls/hr 07/30/19 18:45 07/30/19 19:33 Normal Saline IV 150 mls/hr ASDIRECTED SHANNON Administration Discontinued Medications Generic Name Dose Route Start Last Admin Trade Name Quiana PRN Reason Stop Dose Admin Fentanyl Confirm 07/30/19 21:11 Sublimaze Administered 07/30/19 21:12 Dose 100 mcg .ROUTE .STK-MED ONE Glucagon 1 mg 07/30/19 18:45 07/30/19 19:55 Glucagen IVPUSH 07/30/19 18:46 1 mg ONETIME ONE Administration Hydromorphone HCl 0.5 mg 07/30/19 18:42 07/30/19 19:32 Dilaudid IVPUSH 07/30/19 18:43 0.5 mg ONETIME ONE Administration Hyoscyamine 0.125 mg 07/30/19 18:43 07/30/19 19:29 Hyomax-Sl SL 07/30/19 18:44 0.125 mg ONETIME ONE Administration Lidocaine HCl Confirm 07/30/19 21:12 Xylocaine-Mpf 1% Administered 07/30/19 21:13 Dose 4 mls @ as directed .ROUTE .STK-MED ONE Metoclopramide HCl 7.5 mg 07/30/19 18:42 07/30/19 19:31 Reglan IVPUSH 07/30/19 18:43 7.5 mg ONETIME ONE Administration Midazolam HCl Confirm 07/30/19 21:12 Versed 1 Mg/Ml Administered 07/30/19 21:13 Dose 2 mg .ROUTE .STK-MED ONE Ondansetron HCl Confirm 07/30/19 21:11 Zofran Administered 07/30/19 21:12 Dose 4 mg .ROUTE .STK-MED ONE Propofol Confirm 07/30/19 21:11 Diprivan 20 Ml Administered 07/30/19 21:12 Dose 200 mg .ROUTE .STK-MED ONE - Radiology Interpretation Free Text/Narrative:: 78-year-old male presents to the ED with a food bolus which he believes is a piece of pizza that he was eating for supper stuck at his lower esophageal sphincter. This is happened to him on several occasions in the past. He always make sure that he chews his food into very tiny pieces to try and prevent this from occurring. He states he can feel the food bolus get stuck at the lower esophageal sphincter and subsequently drinking water and regurgitates right away. He has mild pain that is worsened by deep breathing. Is had to have EGD in the past to push the food through into the stomach and I believe he has had to have lower esophageal dilatation in the past as well. He reports his last EGD was approximately a year ago with . Plan we will give him IV normal saline at 150 mils per hour. He will receive Dilaudid 0.5 mg IV with Reglan 7.5 mg IV and then 15 minutes later we will give him a dose of glucagon 1 mg and then tested with clear soda pop to see if we can get the esophagus to burp and the food bolus to pass. - Re-Assessments/Exams Free Text/Narrative Re-Assessment/Exam: 07/30/19 20:16 Labs reveal a normal white count of 7.12 with 72.8% neutrophils on the auto differential. Hemoglobin is 12.1 with hematocrit of 38.0 platelet count is normal 176,000. Coags are all normal. IV treatment with Reglan and Dilaudid followed 15 minutes later by 1 mg of glucagon followed by Queta mist soda pop failed to allow the food bolus to pass through the distal esophagus. He is regurgitating the Queta Mist at this time. I have therefore spoken with Dr. Carlos- on-call surgeon and she will see him in the ED with a view to taking him to the OR for EGD and either removal of the foreign body or pushing it into the stomach. Is familiar with him as she had to do this about a year ago. He will require a preoperative ECG and portable chest x-ray which I have ordered. Departure - Departure Time of Disposition: 21:00 Disposition: DC/Tfer to Critical Access [facility] Condition: Fair Clinical Impression: Impacted foreign body in esophagus Qualifiers: Encounter type: initial encounter Qualified Code(s): T18.108A - Unspecified foreign body in esophagus causing other injury, initial encounter Food impaction of esophagus Qualifiers: Encounter type: initial encounter Qualified Code(s): T18.128A - Food in esophagus causing other injury, initial encounter - Discharge Information *PRESCRIPTION DRUG MONITORING PROGRAM REVIEWED*: Not Applicable *COPY OF PRESCRIPTION DRUG MONITORING REPORT IN PATIENT HEATHER: Not Applicable Sepsis Event Note - Evaluation Sepsis Screening Result: No Definite Risk - Focused Exam Vital Signs: Vital Signs Temp Pulse Resp BP Pulse Ox 07/30/19 23:00 36.8 C 64 20 125/68 96 07/30/19 22:45 37.1 C 68 14 136/62 97 07/30/19 22:30 37.1 C 72 22 H 116/67 98 07/30/19 21:20 36.4 C 64 21 H 156/85 H 98 Date Exam was Performed: 07/31/19 Time Exam was Performed: 07:14 - My Orders Last 24 Hours: My Active Orders 07/30/19 18:45 Sodium Chloride 0.9% [Normal Saline] 1,000 ml IV ASDIRECTED 07/30/19 19:11 Implanted Port Access [RC] ASDIRECTED 07/30/19 20:15 EKG Documentation Completion [RC] STAT 07/30/19 21:25 Admission Status [Patient Status] [ADT] Routine Schedule Procedure [COMM] Stat - Assessment/Plan Last 24 Hours: My Active Orders 07/30/19 18:45 Sodium Chloride 0.9% [Normal Saline] 1,000 ml IV ASDIRECTED 07/30/19 19:11 Implanted Port Access [RC] ASDIRECTED 07/30/19 20:15 EKG Documentation Completion [RC] STAT 07/30/19 21:25 Admission Status [Patient Status] [ADT] Routine Schedule Procedure [COMM] Stat
--- NOTE | 2019-07-30 21:01 | PCM.PREANE ---
Preanesthetic Assessment - Procedure Proposed Procedure: EGD foreign body removal - Anesthesia/Transfusion/Family Hx Anesthesia History: Prior Anesthesia Without Reaction Family History of Anesthesia Reaction: No Transfusion History: No Prior Transfusion(s) - Review of Systems General: Fatigue Pulmonary: Shortness of Breath, Sputum Cardiovascular: Dyspnea on Exertion Gastrointestinal: Difficulty Swallowing Neurological: Difficulty Walking (gets weak quickly) Other: Reports: None, Easy Bruising, Liver Problems (mass), Depression - Physical Assessment NPO Status Date: 07/30/19 NPO Status Time: 18:00 Vital Signs: Last Vital Signs Temp 36.9 C 07/30/19 18:26 Pulse 90 07/30/19 18:26 Resp 13 07/30/19 18:26 BP 134/75 07/30/19 18: Pulse Ox 95 07/30/19 18:26 Height: 1.73 m Weight: 85.275 kg ASA Class: 3E Mental Status: Alert & Oriented x3 Dentition: Reports: Dentures Thyro-Mental Finger Breadths: 2 Mouth Opening Finger Breadths: 2 ROM/Head Extension: Limited/Partial Lungs: Decreased Breath Sounds, Wheezing Cardiovascular: Regular Rate, Regular Rhythm - Lab Values: Laboratory Last Values WBC 7.12 K/mm3 (4.23-9.07) 07/30/19 19: RBC 4.43 M/mm3 (4.63-6.08) L 07/30/19 19:26 Hgb 12.1 gm/dl (13.7-17.5) L 07/30/19 19:26 Hct 38.0 % (40.1-51.0) L 07/30/19 19: MCV 85.8 fl (79.0-92.2) 07/30/19 19: MCH 27.3 pg (25.7-32.2) 07/30/19 19: MCHC 31.8 g/dl (32.2-35.5) L 07/30/19 19:26 RDW Std Deviation 44.8 fL (35.1-43.9) H 07/30/19 19:26 Plt Count 176 K/mm3 (163-337) 07/30/19 19:26 MPV 10.8 fl (9.4-12.3) 07/30/19 19:26 Neut % (Auto) 72.8 % (34.0-67.9) H 07/30/19 19:26 Lymph % (Auto) 12.2 % (21.8-53.1) L 07/30/19 19:26 Marin % (Auto) 8.4 % (5.3-12.2) 07/30/19 19: Eos % (Auto) 6.2 (0.8-7.0) 07/30/19 19: Baso % (Auto) 0.1 % (0.1-1.2) 07/30/19 19: Neut # (Auto) 5.18 K/mm3 (1.78-5.38) 07/30/19 19: Lymph # (Auto) 0.87 K/mm3 (1.32-3.57) L 07/30/19: Marin # (Auto) 0.60 K/mm3 (0.30-0.82) 07/30/19 19: Eos # (Auto) 0.44 K/mm3 (0.04-0.54) 07/30/19 19: Baso # (Auto) 0.01 K/mm3 (0.01-0.08) 07/30/19 19: PT 10.7 SECONDS (9.7-12.0) 07/30/19 19: INR 0.98 07/30/19 19: APTT 33 SECONDS (22-31) H 07/30/19 19:26 Sodium 142 mEq/L (136-145) 07/30/19 19: Potassium 3.7 mEq/L (3.5-5.1) 07/30/19 19: Chloride 108 mEq/L (98-107) H 07/30/19 19: Carbon Dioxide 18 mEq/L (21-32) L 07/30/19 19: Anion Gap 19.7 (5-15) H 07/30/19 19: BUN 22 mg/dL (7-18) H 07/30/19 19: Creatinine 1.3 mg/dL (0.7-1.3) 07/30/19 19: Est Cr Clr Drug Dosing 44.58 mL/min 07/30/19 19: Estimated GFR (MDRD) 53 mL/min (>60) 07/30/19 19: BUN/Creatinine Ratio 16.9 (14-18) 07/30/19 19:26 Glucose 151 mg/dL (83-115) H 07/30/19 19:26 Calcium 8.0 mg/dL (8.5-10.1) L 07/30/19 19:26 Total Bilirubin 0.2 mg/dL (0.2-1.0) 07/30/19 19:26 AST 16 U/L (15-37) 07/30/19 19:26 ALT 17 U/L (16-63) 07/30/19 19:26 Alkaline Phosphatase 126 U/L (46-116) H 07/30/19 19:26 Total Protein 6.3 g/dl (6.4-8.2) L 07/30/19 19:26 Albumin 3.2 g/dl (3.4-5.0) L 07/30/19 19:26 Globulin 3.1 gm/dL 07/30/19 19:26 Albumin/Globulin Ratio 1.0 (1-2) 07/30/19 19:26 Amylase 62 U/L (20-160) 07/30/19 19:26 - Imaging/EKG Impressions: EKG NSR left axis deviation - Allergies Allergies/Adverse Reactions: Allergies Allergy/AdvReac Type Severity Reaction Status Date / Time azithromycin Allergy Anaphylactic Verified 03/20/19 10:57 Shock gatifloxacin [From Tequin] Allergy Anaphylactic Verified 03/20/19 10:57 Shock lansoprazole [From Prevacid] Allergy Anaphylactic Verified 03/20/19 10:57 Shock omeprazole [From Prilosec] Allergy Cannot Verified 03/20/19 10:57 Remember Penicillins Allergy Anaphylactic Verified 03/20/19 10:57 Shock Sulfa (Sulfonamide Allergy Rash Verified 03/20/19 10:57 Antibiotics) - Blood Blood Available: No Product(s) Available: None - Anesthesia Plan Pre-Op Medication Ordered: Beta Pritesh Beta Pritesh: Metoprolol Med Last Dose Date: 07/30/19 Med Last Dose Time: 08:00 - Acknowledgements Anesthesia Type Planned: General Anesthesia Pt an Appropriate Candidate for the Planned Anesthesia: Yes Alternatives and Risks of Anesthesia Discussed w Pt/Guardian: Yes Pt/Guardian Understands and Agrees with Anesthesia Plan: Yes PreAnesthesia Questionnaire HEENT History: Reports: Glaucoma, Macular Degeneration Other HEENT History: wears eyeglasses, has dentures Cardiovascular History: Reports: Hypertension Respiratory History: Reports: Bronchitis, Recurrent, COPD, SOB Other Respiratory History: stress asthma Gastrointestinal History: Reports: Bowel Obstruction, GERD Other Gastrointestinal History: esophagitis, liver mass, dysphagia, ileus, peg tube placement, small bowel obstruction Genitourinary History: Reports: Chronic Renal Insuffiency, Other (See Below) Other Genitourinary History: Rt nephrectomy 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: Reports: None Musculoskeletal History: Reports: Arthritis Other Musculoskeletal History: dupuytren's contracture Neurological History: Reports: TIA Other Neuro History: ?TIAs many years ago Psychiatric History: Reports: Depression Endocrine/Metabolic History: Reports: None Hematologic History: Reports: None Immunologic History: Reports: None Oncologic (Cancer) History: Reports: Colon, Liver, Lung Other Oncologic History: off of chemo for the past 9 months, with james cath L chest Dermatologic History: Reports: Psoriasis - Infectious Disease History Infectious Disease History: Reports: Measles, Mumps - Past Surgical History Head Surgeries/Procedures: Reports: None HEENT Surgical History: Reports: Cataract Surgery, Naso-Sinus Surgery Cardiovascular Surgical History: Reports: Vascular Surgery Respiratory Surgical History: Reports: Tracheostomy, Other (See Below) GI Surgical History: Reports: Appendectomy, Cholecystectomy, Colon, Colonoscopy , Colostomy, EGD, Other (See Below) Male Surgical History: Reports: Nephrectomy Other Male Surgeries/Procedures: right kidney removed Endocrine Surgical History: Reports: None Neurological Surgical History: Reports: None Musculoskeletal Surgical History: Reports: Other (See Below) Oncologic Surgical History: Reports: Other (See Below) Dermatological Surgical History: Reports: Skin Biopsy - SUBSTANCE USE Smoking Status *Q: Never Smoker Second Hand Smoke Exposure: No Days Per Week of Alcohol Use: 0 Number of Drinks Per Day: 0 Total Drinks Per Week: 0 Recreational Drug Use History: No - HOME MEDS Home Medications: Home Meds Albuterol Sulfate [Proair Hfa] 2 puff INH Q6H PRN 02/25/19 [History] Aspirin [Aspirin EC] 325 mg PO BID PRN 02/25/19 [History] Furosemide 20 mg PO DAILY 02/25/19 [History] Lutein/Minerals/Vit A,C & E [I-Jil] 1 tab PO DAILY 02/25/19 [History] Metoprolol Succinate 50 mg PO DAILY 02/25/19 [History] Ranitidine [Zantac] 150 mg PO BID 02/25/19 [History] Sennosides/Docusate Sodium [Senna-Docusate Sodium Tablet] 1 - 2 tab PO DAILY 02/05 [History] allopurinoL [Zyloprim] 50 mg PO DAILY 02/25/19 [History] Acetaminophen [Acetaminophen Extra Strength] 500 mg PO Q6H PRN 02/26/19 [History ] Ondansetron [Zofran] 4 mg PO Q8H PRN 02/26/19 [History] - CURRENT (IN HOUSE) MEDS Current Meds: Current Medications Sodium Chloride (Normal Saline) 1,000 mls @ 150 mls/hr IV ASDIRECTED [facility] Last Admin: 07/30/19 19:33 Dose: 150 mls/hr Discontinued Medications Glucagon (Glucagen) 1 mg IVPUSH ONETIME ONE Stop: 07/30/19 18:46 Last Admin: 07/30/19 19:55 Dose: 1 mg Hydromorphone HCl (Dilaudid) 0.5 mg IVPUSH ONETIME ONE Stop: 07/30/19 18:43 Last Admin: 07/30/19 19:32 Dose: 0.5 mg Hyoscyamine (Hyomax-Sl) 0.125 mg SL ONETIME ONE Stop: 07/30/19 18:44 Last Admin: 07/30/19 19:29 Dose: 0.125 mg Metoclopramide HCl (Reglan) 7.5 mg IVPUSH ONETIME ONE Stop: 07/30/19 18:43 Last Admin: 07/30/19 19:31 Dose: 7.5 mg
--- NOTE | 2019-07-30 21:18 | PCM.HP.2 ---
H&P History of Present Illness - General Date of Service: 07/30/19 Source of Information: Patient, Family, Provider History Limitations: Reports: No Limitations - History of Present Illness Initial Comments - Free Text/Narative: The patient is a 78 y/o male who presents with an esophageal food obstruction. He has had multiple episodes of this in the past, the last one was 4-5 months ago. He is sometimes able to flush the food down with water, but it did not work this time. He presented to the ED and had trial of medical therapy but is still not able to pass the obstruction. He has vomiting with any attempt to swallow food. He denies any pain. Upper Abdomen Pain Score (Numeric/FACES): 5 - Related Data Allergies/Adverse Reactions: Allergies Allergy/AdvReac Type Severity Reaction Status Date / Time azithromycin Allergy Anaphylactic Verified 03/20/19 10:57 Shock gatifloxacin [From Tequin] Allergy Anaphylactic Verified 03/20/19 10:57 Shock lansoprazole [From Prevacid] Allergy Anaphylactic Verified 03/20/19 10:57 Shock omeprazole [From Prilosec] Allergy Cannot Verified 03/20/19 10:57 Remember Penicillins Allergy Anaphylactic Verified 03/20/19 10:57 Shock Sulfa (Sulfonamide Allergy Rash Verified 03/20/19 10:57 Antibiotics) Home Medications: Home Meds Albuterol Sulfate [Proair Hfa] 2 puff INH Q6H PRN 02/25/19 [History] Aspirin [Aspirin EC] 325 mg PO BID PRN 02/25/19 [History] Furosemide 20 mg PO DAILY 02/25/19 [History] Lutein/Minerals/Vit A,C & E [I-Jil] 1 tab PO DAILY 02/25/19 [History] Metoprolol Succinate 50 mg PO DAILY 02/25/19 [History] Ranitidine [Zantac] 150 mg PO BID 02/25/19 [History] Sennosides/Docusate Sodium [Senna-Docusate Sodium Tablet] 1 - 2 tab PO DAILY 02/05 [History] allopurinoL [Zyloprim] 50 mg PO DAILY 02/25/19 [History] Acetaminophen [Acetaminophen Extra Strength] 500 mg PO Q6H PRN 02/26/19 [History ] Ondansetron [Zofran] 4 mg PO Q8H PRN 02/26/19 [History] Past Medical History HEENT History: Reports: Glaucoma, Macular Degeneration Other HEENT History: wears eyeglasses, has dentures Cardiovascular History: Reports: Hypertension Respiratory History: Reports: Bronchitis, Recurrent, COPD, SOB Other Respiratory History: stress asthma Gastrointestinal History: Reports: Bowel Obstruction, GERD Other Gastrointestinal History: esophagitis, liver mass, dysphagia, ileus, peg tube placement, small bowel obstruction Genitourinary History: Reports: Chronic Renal Insuffiency, Other (See Below) Other Genitourinary History: Rt nephrectomy 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: 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: 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 Musculoskeletal History: Reports: Arthritis Other Musculoskeletal History: dupuytren's contracture Neurological History: Reports: TIA Other Neuro History: ?TIAs many years ago Psychiatric History: Reports: Depression Endocrine/Metabolic History: Reports: None Hematologic History: Reports: None Immunologic History: Reports: None Oncologic (Cancer) History: Reports: Colon, Liver, Lung Other Oncologic History: off of chemo for the past 9 months, with james cath L chest Dermatologic History: Reports: Psoriasis - Infectious Disease History Infectious Disease History: Reports: Measles, Mumps - Past Surgical History Head Surgeries/Procedures: Reports: None HEENT Surgical History: Reports: Cataract Surgery, Naso-Sinus Surgery Cardiovascular Surgical History: Reports: Vascular Surgery Respiratory Surgical History: Reports: Tracheostomy, Other (See Below) GI Surgical History: Reports: Appendectomy, Cholecystectomy, Colon, Colonoscopy , Colostomy, EGD, Other (See Below) Male Surgical History: Reports: Nephrectomy Other Male Surgeries/Procedures: right kidney removed Endocrine Surgical History: Reports: None Neurological Surgical History: Reports: None Musculoskeletal Surgical History: Reports: Other (See Below) Oncologic Surgical History: Reports: Other (See Below) Dermatological Surgical History: Reports: Skin Biopsy Social & Family History - Family History Cardiac: Reports: CAD, HI GI: Reports: Other (See Below) : Reports: Renal Disease/Insufficiency Endocrine/Metabolic: Reports: Diabetes, type II Other Oncologic Family History: aunt had brain cancer - Tobacco Use Smoking Status *Q: Never Smoker Second Hand Smoke Exposure: No - Caffeine Use Caffeine Use: Reports: Soda Other Caffeine Use: occasional - Alcohol Use Days Per Week of Alcohol Use: 0 Number of Drinks Per Day: 0 Total Drinks Per Week: 0 - Recreational Drug Use Recreational Drug Use: No - Living Situation & Occupation Living situation: Reports: , with Spouse 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) H&P Review of Systems - Review of Systems: Review Of Systems: See Below General: Reports: No Symptoms HEENT: Reports: No Symptoms Pulmonary: Reports: No Symptoms Cardiovascular: Reports: No Symptoms Gastrointestinal: Reports: Difficulty Swallowing Genitourinary: Reports: No Symptoms Musculoskeletal: Reports: No Symptoms Skin: Reports: No Symptoms Neurological: Reports: No Symptoms Exam - Exam Exam: See Below - Vital Signs Vital Signs: Last Vital Signs Temp 36.9 C 07/30/19 18:26 Pulse 90 07/30/19 18:26 Resp 13 07/30/19 18:26 BP 134/75 07/30/19 18:26 Pulse Ox 95 07/30/19 18:26 Weight: 85.275 kg - Exam Quality Assessment: No: Supplemental Oxygen General: Alert, Oriented HEENT: EOMI Neck: Supple Lungs: Normal Respiratory Effort GI/Abdominal Exam: Soft, Non-Tender, No Distention Extremities: Normal Inspection, No Pedal Edema Peripheral Pulses: 2+: Dorsalis Pedis (L), Dorsalis Pedis (R) Skin: Warm, Dry, Intact Neurological: Cranial Nerves Intact Neuro Extensive - Mental Status: Normal Mood/Affect - Patient Data Lab Results Last 24 hrs: Laboratory Results - last 24 hr 07/30/19 07/30/19 07/30/19 Range/Units 19:26 19:26 19:26 WBC 7.12 (4.23-9.07) K/mm3 RBC 4.43 L (4.63-6.08) M/mm3 Hgb 12.1 L (13.7-17.5) gm/dl Hct 38.0 L (40.1-51.0) % MCV 85.8 (79.0-92.2) fl MCH 27.3 (25.7-32.2) pg MCHC 31.8 L (32.2-35.5) g/dl RDW Std Deviation 44.8 H (35.1-43.9) fL Plt Count 176 (163-337) K/mm3 MPV 10.8 (9.4-12.3) fl Neut % (Auto) 72.8 H (34.0-67.9) % Lymph % (Auto) 12.2 L (21.8-53.1) % [place] % (Auto) 8.4 (5.3-12.2) % Eos % (Auto) 6.2 (0.8-7.0) Baso % (Auto) 0.1 (0.1-1.2) % Neut # (Auto) 5.18 (1.78-5.38) K/mm3 Lymph # (Auto) 0.87 L (1.32-3.57) K/mm3 [place] # (Auto) 0.60 (0.30-0.82) K/mm3 Eos # (Auto) 0.44 (0.04-0.54) K/mm3 Baso # (Auto) 0.01 (0.01-0.08) K/mm3 PT 10.7 (9.7-12.0) SECONDS INR 0.98 APTT 33 H (22-31) SECONDS Sodium 142 (136-145) mEq/L Potassium 3.7 (3.5-5.1) mEq/L Chloride 108 H (98-107) mEq/L Carbon Dioxide 18 L (21-32) mEq/L Anion Gap 19.7 H (5-15) BUN 22 H (7-18) mg/dL Creatinine 1.3 (0.7-1.3) mg/dL Est Cr Clr Drug Dosing 44.58 mL/min Estimated GFR (MDRD) 53 (>60) mL/min BUN/Creatinine Ratio 16.9 (14-18) Glucose 151 H (83-115) mg/dL Calcium 8.0 L (8.5-10.1) mg/dL Total Bilirubin 0.2 (0.2-1.0) mg/dL AST 16 (15-37) U/L ALT 17 (16-63) U/L Alkaline Phosphatase 126 H (46-116) U/L Total Protein 6.3 L (6.4-8.2) g/dl Albumin 3.2 L (3.4-5.0) g/dl Globulin 3.1 gm/dL Albumin/Globulin Ratio 1.0 (1-2) Amylase 62 (20-160) U/L Result Diagrams: 07/30/19 19:26 07/30/19 19:26 Sepsis Event Note - Evaluation Sepsis Screening Result: No Definite Risk - Focused Exam Vital Signs: Vital Signs Temp Pulse Resp BP Pulse Ox 07/30/19 18:26 36.9 C 90 13 134/75 95 Date Exam was Performed: 07/30/19 Time Exam was Performed: 22:00 *Q Meaningful Use (ADM) - VTE Risk Assess *Q Each Risk Factor Represents 1 Point: Minor Surgery Planned Total Score 1 Point Risk Factors: 1 Each Risk Factor Represents 3 Points: Age 75 Years or Greater Total Score 3 Point Risk Factors: 3 - Problem List (1) Impacted foreign body in esophagus SNOMED Code(s): 83319017 ICD Code: T18.108A - UNSP FOREIGN BODY IN ESOPHAGUS CAUSING OTH INJURY, INIT Status: Acute Current Visit: Yes Qualifiers: Encounter type: initial encounter Qualified Code(s): T18.108A - Unspecified foreign body in esophagus causing other injury, initial encounter Problem List Initiated/Reviewed/Updated: Yes Orders Last 24hrs: Active Orders 24 hr Category Date Time Status EKG Documentation Completion [RC] STAT Care 07/30/19 20:15 Active Implanted Port Access [RC] ASDIRECTED Care 07/30/19 19:11 Active Chest 1V Frontal [CR] Stat Exams 07/30/19 20:15 Taken Sodium Chloride 0.9% [Normal Saline] 1,000 ml Med 07/30/19 18:45 Active IV ASDIRECTED Medication Orders Sodium Chloride (Normal Saline) 1,000 mls @ 150 mls/hr IV ASDIRECTED SAHNNON Last Admin: 07/30/19 19:33 Dose: 150 mls/hr Assessment/Plan Comment:: 78 y/o male with impacted esophageal food bolus -Plan for EGD with intervention and retrieval of the food bolus. Discussed risk of perforation with the patient. His written consent was obtained -We will assess need for any further intervention/inpatient observation based on findings during the procedure Tova Allred MD General Surgery - Mortality Measure Prognosis:: Good
--- NOTE | 2019-07-30 22:34 | PCM.OPNOTE ---
- General Post-Op/Procedure Note Date of Surgery/Procedure: 07/30/19 Operative Procedure(s): EGD with intervention Findings: impacted esophageal food bolus Pre Op Diagnosis: Esophageal food obstruction Post-Op Diagnosis: same Anesthesia Technique: MAC Primary Surgeon: Tova Allred Anesthesia Provider: Dorian Wiley Pathology: none Fluid Replacement, Intraop: 900 Output, Urine Amount: 0 EBL in mLs: 0 Complications: none apparent Condition: Good
--- NOTE | 2019-07-30 22:38 | PCM.POSTAN ---
POST ANESTHESIA ASSESSMENT - MENTAL STATUS Mental Status: Alert, Oriented - VITAL SIGNS Vital Signs: Last Vital Signs Temp 36.4 C 07/30/19 21:20 Pulse 64 07/30/19 21:20 Resp 21 H 07/30/19 21:20 BP 156/85 H 07/30/19 21:20 Pulse Ox 98 07/30/19 21:20 - RESPIRATORY Respiratory Status: Respiratory Rate WNL, Airway Patent, O2 Saturation Stable - CARDIOVASCULAR CV Status: Pulse Rate WNL, Blood Pressure Stable - GASTROINTESTINAL GI Status: No Symptoms - PAIN Pain Score: 0 - POST OP HYDRATION Hydration Status: Adequate & Stable - OBSERVATIONS Free Text/Narrative:: no anesthesia complications noted
--- NOTE | 2019-07-30 22:43 | PCM.PRNOTE ---
- Free Text/Narrative Note: Operative Report Date of procedure: July 30, 2019 Preoperative diagnosis: Esophageal food bolus obstruction Postoperative diagnosis: Same Surgeon: Toav Allred M.D. Procedure: EGD with intervention Anesthesia: General Anesthesiologist: Dorian Wiley CRNA IV fluids: 900 mL Estimated blood loss: 0 mL Specimens: None. Indication: The patient is a 78 -year-old gentleman who presented with an impacted esophageal food bolus. The patient's main complaint was inability to tolerate swallowing without vomiting. The patient was consented for an EGD with intervention. Risk of bleeding and perforation were discussed. The patient's consent was obtained Description of the procedure: The patient was taken to the endoscopy suite and placed on hemodynamic monitoring. The nurse concrete inspector induced general anesthesia and he was intubated without difficulty. A bite block was placed. The patient was positioned in the left lateral decubitus position. A timeout was performed. The endoscope was gently placed into the mouth to the back of the pharynx and introduced into the esophagus. The scope was gently advanced under direct visualization down to the level of the lower esophagus. We encountered the food bolus. A hexagonal snare was used to attempt to grasp this food bolus. It was soft and fractured with this manipulation. We were able to retrieve 2 pieces using the snare and suction. The remaining portion of the food bolus was then flushed with irrigation and pushed down into the stomach. We then inspected the stomach. There was evidence of inflammation with erythema and edema. The bulb of the duodenum was then entered and there was erythema also in this location. The scope was then withdrawn while inspecting the esophagus. There was esophagitis in the distal esophagus and near the GE junction. There was some small amount of difficulty passing scope through the GE junction. The procedure was terminated. the patient tolerated the procedure well without any evidence of complications. Instructions: The patient should consume a full liquid diet for the next 2 days and then be maintained on a GI soft diet. Resume acid suppression therapy Tova Allred MD General Surgery
--- NOTE | 2019-07-30 22:47 | PCM48HPAN ---
Post Anesthesia Note - EVALUATION WITHIN 48HRS OF ANESTHETIC Vital Signs in Normal Range: Yes Patient Participated in Evaluation: Yes Respiratory Function Stable: Yes Airway Patent: Yes Cardiovascular Function Stable: Yes Hydration Status Stable: Yes Pain Control Satisfactory: Yes Nausea and Vomiting Control Satisfactory: Yes Mental Status Recovered: Yes Vital Signs: Last Vital Signs Temp 36.4 C 07/30/19 21:20 Pulse 64 07/30/19 21:20 Resp 21 H 07/30/19 21:20 BP 156/85 H 07/30/19 21:20 Pulse Ox 98 07/30/19 21:20 - COMMENTS/OBSERVATIONS Free Text/Narrative:: no anesthesia complications noted
[2019-07-30 23:26] VITALS: BP 125/68; PULSE 64
--- NOTE | 2019-07-31 06:55 | CR ---
Chest: Portable view of the chest was obtained. Comparison: Prior chest x-ray of 02/25/90. Increasing nodular density is seen within both sides of the chest. Heart size is normal. Infusion port is seen. Bony structures are grossly intact. Impression: 1. Increasing nodular densities within both sides of the chest. Findings, unfortunately are suspicious for worsening metastatic disease. Diagnostic code #9 This report was dictated in MDT
== END | disposition home or self-care (01) ==
LOC: JD.ED 18:20 → JD.SDS 21:34
PROVIDERS: ATTEND Surgery
DX: T18.128A Food in esophagus causing other injury, initial encounter (principal); I12.9 Hypertensive chronic kidney disease with stage 1 through stage 4 chronic kidney disease, or unspecified chronic kidney disease; N18.9 Chronic kidney disease, unspecified; J44.9 Chronic obstructive pulmonary disease, unspecified; Z88.1 Allergy status to other antibiotic agents; Z88.0 Allergy status to penicillin; Z88.2 Allergy status to sulfonamides; Z88.8 Allergy status to other drugs, medicaments and biological substances; Z79.82 Long term (current) use of aspirin; Z79.899 Other long term (current) drug therapy; X58.XXXA Exposure to other specified factors, initial encounter
CPT/HCPCS: 36415; 43247; 71045; 80053; 82150; 85025; 85610; 85730; 93005; 96361; 96374; 96375; 99285; A9270; J0330; J1170; J1610; J1642; J2001; J2250; J2405; J2704; J2765; J7030; J3010

== ENCOUNTER 2019-09-26 15:37 | Day surgery (SDC) | payer MEDICARE, BC ==
[2019-09-26] MEDS ORDERED: Metoclopramide 10 MG/2 ML SDV IVPUSH ONE (15:59)
[2019-09-26] MEDS ORDERED: HYDROmorphone 0.5 MG/0.5 ML Syringe IVPUSH ONE (15:59)
--- NOTE | 2019-09-26 16:03 | EDM.PDOC ---
ED HPI GENERAL MEDICAL PROBLEM - General Chief Complaint: ENT Problem Stated Complaint: FOOD STUCK IN ESOPHAGUS Time Seen by Provider: 09/26/19 15:41 Source of Information: Reports: Patient History Limitations: Reports: No Limitations - History of Present Illness INITIAL COMMENTS - FREE TEXT/NARRATIVE: Patient is a 78-year-old male who presents with complaints of having a food bolus stuck in his esophagus. He states that he had "soft pork ", baked potato , and lettuce around noon today for lunch. He thinks that a piece of lettuce got stuck. He has had this problem on numerous other occasions in the past and has required surgical removal on 2 occasions that he can remember. He denies any pain at this time, however states whenever he tries to drink something he feels pain in his upper abdomen and he vomits up the liquid. 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 He does have a Port-A-Cath in the left upper chest. - Related Data Allergies Allergy/AdvReac Type Severity Reaction Status Date / Time azithromycin Allergy Anaphylactic Verified 09/26/19 19:27 Shock gatifloxacin [From Tequin] Allergy Anaphylactic Verified 09/26/19 19:27 Shock lansoprazole [From Prevacid] Allergy Anaphylactic Verified 09/26/19 19:27 Shock omeprazole [From Prilosec] Allergy Cannot Verified 09/26/19 19:27 Remember Penicillins Allergy Anaphylactic Verified 09/26/19 19:27 Shock Sulfa (Sulfonamide Allergy Rash Verified 09/26/19 19:27 Antibiotics) Home Meds: Home Meds Albuterol Sulfate [Proair Hfa] 2 puff INH Q6H PRN 02/25/19 [History] Aspirin [Aspirin EC] 325 mg PO BID PRN 02/25/19 [History] Furosemide 20 mg PO DAILY 02/25/19 [History] Lutein/Minerals/Vit A,C & E [I-Jil] 1 tab PO DAILY 02/25/19 [History] Metoprolol Succinate 50 mg PO DAILY 02/25/19 [History] Ranitidine [Zantac] 150 mg PO BID 02/25/19 [History] Sennosides/Docusate Sodium [Senna-Docusate Sodium Tablet] 1 - 2 tab PO DAILY 02/05 [History] allopurinoL [Zyloprim] 50 mg PO DAILY 02/25/19 [History] Acetaminophen [Acetaminophen Extra Strength] 500 mg PO Q6H PRN 02/26/19 [History ] Ondansetron [Zofran] 4 mg PO Q8H PRN 02/26/19 [History] Past Medical History HEENT History: Reports: Glaucoma, Macular Degeneration Other HEENT History: wears eyeglasses, has dentures Cardiovascular History: Reports: Hypertension Respiratory History: Reports: Bronchitis, Recurrent, COPD, SOB Other Respiratory History: stress asthma Gastrointestinal History: Reports: Bowel Obstruction, GERD Other Gastrointestinal History: esophagitis, liver mass, dysphagia, ileus, peg tube placement, small bowel obstruction Genitourinary History: Reports: Chronic Renal Insuffiency, Other (See Below) Other Genitourinary History: Rt nephrectomy OR MANAGER History: Reports: None Musculoskeletal History: Reports: Arthritis Other Musculoskeletal History: dupuytren's contracture Neurological History: Reports: TIA Other Neuro History: ?TIAs many years ago Psychiatric History: Reports: Depression Endocrine/Metabolic History: Reports: None Hematologic History: Reports: None Immunologic History: Reports: None Oncologic (Cancer) History: Reports: Colon, Liver, Lung Other Oncologic History: off of chemo for the past 9 months, with james cath L chest Dermatologic History: Reports: Psoriasis - Infectious Disease History Infectious Disease History: Reports: Measles, Mumps - Past Surgical History Head Surgeries/Procedures: Reports: None HEENT Surgical History: Reports: Cataract Surgery, Naso-Sinus Surgery Cardiovascular Surgical History: Reports: Vascular Surgery Respiratory Surgical History: Reports: Tracheostomy, Other (See Below) GI Surgical History: Reports: Appendectomy, Cholecystectomy, Colon, Colonoscopy , Colostomy, EGD, Other (See Below) Male Surgical History: Reports: Nephrectomy Other Male Surgeries/Procedures: right kidney removed Endocrine Surgical History: Reports: None Neurological Surgical History: Reports: None Musculoskeletal Surgical History: Reports: Other (See Below) Oncologic Surgical History: Reports: Other (See Below) Dermatological Surgical History: Reports: Skin Biopsy Social & Family History - Family History Family Medical History: Noncontributory Cardiac: Reports: CAD, [place] GI: Reports: Other (See Below) : Reports: Renal Disease/Insufficiency Endocrine/Metabolic: Reports: Diabetes, type II Other Oncologic Family History: aunt had brain cancer - Tobacco Use Smoking Status *Q: Former Smoker Used Tobacco, but Quit: Yes Month/Year Tobacco Last Used: 05/1999 - Caffeine Use Caffeine Use: Reports: Soda Other Caffeine Use: occasional - Living Situation & Occupation Living situation: Reports: , with Spouse 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 ED EXAM, ENT - Physical Exam Exam: See Below Exam Limited By: No Limitations General Appearance: Alert, WD/WN, No Apparent Distress Respiratory/Chest: No Respiratory Distress, Lungs Clear, Normal Breath Sounds, No Accessory Muscle Use, Chest Non-Tender Cardiovascular: Normal Peripheral Pulses, Regular Rate, Rhythm, No Edema, No Gallop, No JVD, No Murmur, No Rub GI/Abdominal: Normal Bowel Sounds, Soft, Non-Tender, No Organomegaly, No Distention, No Abnormal Bruit, No Mass Neurological: Alert, Oriented, CN II-XII Intact, Normal Cognition, Normal Gait, Normal Reflexes, No Motor/Sensory Deficits Psychiatric: Normal Affect, Normal Mood Skin: Warm, Dry, Intact, Normal Color, No Rash EKG INTERPRETATION EKG Date: 09/26/19 Time: 17:37 Rhythm: NSR Rate (Beats/Min): 64 Lyons: LAD-Left Lyons Deviation P-Wave: Present QRS: RBBB (and LAFB) ST-T: Normal QT: Normal Course - Vital Signs Last Recorded V/S: Last Vital Signs Temp 99.0 F 09/26/19 20:00 Pulse 75 09/26/19 19:03 Resp 20 09/26/19 20:00 BP 137/66 09/26/19 20:00 Pulse Ox 96 09/26/19 20:00 - Orders/Labs/Meds Orders: Active Orders 24 hr Category Date Time Status Patient Status [ADT] Routine ADT 09/26/19 17:59 Active Cardiac Monitoring [RC] . DIRECTED Care 09/26/19 15:52 Active Communication Order [RC] ROUTINE Care 09/26/19 19:38 Active Cooling Warming Measures [RC] ASDIRECTED Care 09/26/19 19:38 Active Implanted Port Access [RC] ASDIRECTED Care 09/26/19 16:19 Active Notify Provider [RC] ASDIRECTED Care 09/26/19 19:38 Active Oxygen Therapy [RC] ASDIRECTED Care 09/26/19 19:38 Active Pulse Oximetry [RC] ASDIRECTED Care 09/26/19 19:38 Active Ready for Discharge [RC] PER UNIT ROUTINE Care 09/26/19 19:25 Active Vital Signs [RC] Q15M Care 09/26/19 19:38 Active Chest 1V Frontal [CR] Routine Exams 09/26/19 17:51 Taken Heparin Sodium [Heparin Lock Flush 100 Units/ML] Med 09/26/19 20:00 Active 500 units FLUSH ONETIME Schedule Procedure [COMM] Routine Oth 09/26/19 17:58 Ordered Medication Orders Heparin Sodium (Porcine) (Heparin Lock Flush 100 Units/Ml) 500 units FLUSH ONETIME SHANNON Last Admin: 09/26/19 20:05 Dose: 500 units Labs: Laboratory Tests 09/26/19 09/26/19 Range/Units 17:25 17:25 WBC 10.83 H (4.23-9.07) K/mm3 RBC 4.67 (4.63-6.08) M/mm3 Hgb 12.8 L (13.7-17.5) gm/dl Hct 39.8 L (40.1-51.0) % MCV 85.2 (79.0-92.2) fl MCH 27.4 (25.7-32.2) pg MCHC 32.2 (32.2-35.5) g/dl RDW Std Deviation 43.7 (35.1-43.9) fL Plt Count 190 (163-337) K/mm3 MPV 10.8 (9.4-12.3) fl Neut % (Auto) 79.2 H (34.0-67.9) % Lymph % (Auto) 9.1 L (21.8-53.1) % Bladen % (Auto) 6.3 (5.3-12.2) % Eos % (Auto) 5.0 (0.8-7.0) Baso % (Auto) 0.2 (0.1-1.2) % Neut # (Auto) 8.58 H (1.78-5.38) K/mm3 Lymph # (Auto) 0.99 L (1.32-3.57) K/mm3 Bladen # (Auto) 0.68 (0.30-0.82) K/mm3 Eos # (Auto) 0.54 (0.04-0.54) K/mm3 Baso # (Auto) 0.02 (0.01-0.08) K/mm3 Manual Slide Review Abnormal smear Sodium 139 (136-145) mEq/L Potassium 4.7 (3.5-5.1) mEq/L Chloride 106 (98-107) mEq/L Carbon Dioxide 21 (21-32) mEq/L Anion Gap 16.7 H (5-15) BUN 38 H (7-18) mg/dL Creatinine 1.5 H (0.7-1.3) mg/dL Est Cr Clr Drug Dosing 38.63 mL/min Estimated GFR (MDRD) 45 (>60) mL/min BUN/Creatinine Ratio 25.3 H (14-18) Glucose 173 H (83-115) mg/dL Calcium 8.6 (8.5-10.1) mg/dL Total Bilirubin 0.3 (0.2-1.0) mg/dL AST 15 (15-37) U/L ALT 13 L (16-63) U/L Alkaline Phosphatase 151 H (46-116) U/L Total Protein 6.6 (6.4-8.2) g/dl Albumin 3.4 (3.4-5.0) g/dl Globulin 3.2 gm/dL Albumin/Globulin Ratio 1.1 (1-2) Meds: Medications Generic Name Dose Route Start Last Admin Trade Name Quiana PRN Reason Stop Dose Admin Heparin Sodium (Porcine) 500 units 09/26/19 20:00 09/26/19 20:05 Heparin Lock Flush 100 Units/Ml FLUSH 500 units ONETIME SHANNON Administration Discontinued Medications Generic Name Dose Route Start Last Admin Trade Name Quiana PRN Reason Stop Dose Admin Fentanyl Confirm 09/26/19 19:03 Sublimaze Administered 09/26/19 19:04 Dose 100 mcg .ROUTE .STK-MED ONE Glucagon 1 mg 09/26/19 16:10 09/26/19 16:32 Glucagen IVPUSH 09/26/19 16:11 1 mg ONETIME ONE Administration Hydromorphone HCl 0.5 mg 09/26/19 15:59 09/26/19 16:14 Dilaudid IVPUSH 09/26/19 16:00 0.5 mg ONETIME ONE Administration Lidocaine HCl Confirm 09/26/19 19:03 Xylocaine-Mpf 1% Administered 09/26/19 19:04 Dose 4 mls @ as directed .ROUTE .STK-MED ONE Metoclopramide HCl 7.5 mg 09/26/19 15:59 09/26/19 16:14 Reglan IVPUSH 09/26/19 16:00 7.5 mg ONETIME ONE Administration Propofol Confirm 09/26/19 19:03 Diprivan 20 Ml Administered 09/26/19 19:04 Dose 200 mg .ROUTE .STK-MED ONE - Re-Assessments/Exams Free Text/Narrative Re-Assessment/Exam: We will attempt medications to get the bolus to move prior to surgical consult. We will start with Reglan 7.5 mg and Dilaudid 0.5 mg. After about 15 minutes , we will give glucagon 1 mg IV. After another 15 minutes, patient will be provided with a carbonated beverage to see if we can get the food bolus to move. If this is not successful, I will consult the general surgeon on-call. 09/26/19 17:22 Patient has been unable to clear the fluid bolus thus far. He continues to regurgitate any fluids that he drinks. Spoke with Dr. Rodríguez, general surgeon concert manager. He requested that we call in the OR crew for an upper endoscopy. I have ordered a CBC, CMP, EKG, and chest x-ray for preop purposes. Departure - Departure Time of Disposition: 17:22 Disposition: DC/Tfer to [facility] Condition: Good Clinical Impression: Esophageal foreign body Qualifiers: Encounter type: initial encounter Qualified Code(s): T18.108A - Unspecified foreign body in esophagus causing other injury, initial encounter - Discharge Information Sepsis Event Note - Evaluation Sepsis Screening Result: No Definite Risk - Focused Exam Vital Signs: Vital Signs Temp Pulse Resp BP Pulse Ox Pulse Ox 09/26/19 20:00 99.0 F 20 137/66 96 09/26/19 19:50 18 125/71 96 09/26/19 19:34 98.6 F 11 L 115/68 98 98 09/26/19 19:03 75 16 143/81 H 98 09/26/19 15:44 97.7 F 71 20 153/91 H 98 Date Exam was Performed: 09/26/19 Time Exam was Performed: 20:29 - My Orders Last 24 Hours: My Active Orders 09/26/19 15:52 Cardiac Monitoring [RC] . DIRECTED 09/26/19 16:19 Implanted Port Access [RC] ASDIRECTED 09/26/19 17:51 Chest 1V Frontal [CR] Routine 09/26/19 17:59 Patient Status [ADT] Routine - Assessment/Plan Last 24 Hours: My Active Orders 09/26/19 15:52 Cardiac Monitoring [RC] . DIRECTED 09/26/19 16:19 Implanted Port Access [RC] ASDIRECTED 09/26/19 17:51 Chest 1V Frontal [CR] Routine 09/26/19 17:59 Patient Status [ADT] Routine
[2019-09-26] MEDS ORDERED: Glucagon,Human Recombinant 1 MG Vial IVPUSH ONE (16:10)
--- NOTE | 2019-09-26 19:02 | PCM.HP.2 ---
H&P History of Present Illness - General Date of Service: 09/26/19 Admit Problem/Dx: esophageal food impaction Source of Information: Patient History Limitations: Reports: No Limitations - History of Present Illness Onset of Symptoms: Reports: Today Duration of Symptoms: Reports: Hour(s): Other HPI/Comments: Mr. Ellis is a 78 yo man with history of multiple episodes of esophageal food impaction who presents again with the same issue after lunch today. He is in no distress currently but reports ongoing dysphagia and regurgitation of liquids. His medical history is significant for metastatic colon cancer with history of liver and lung metastases treated with chemotherapy. He reports radiation therapy for the lung lesion, and after this is when he began to have problems with dysphagia. Recent endoscopy has failed to reveal any stricture or other significant gross esophageal pathology. Past esophagram shows normal caliber esophagus. Pathology reports corresponding to esophageal mucosal biopsies describe non-specific mild inflammatory changes without evidence of metaplasia. The patient denies any history of esophageal manometric testing. - Related Data Allergies/Adverse Reactions: Allergies Allergy/AdvReac Type Severity Reaction Status Date / Time azithromycin Allergy Anaphylactic Verified 03/20/19 10:57 Shock gatifloxacin [From Tequin] Allergy Anaphylactic Verified 03/20/19 10:57 Shock lansoprazole [From Prevacid] Allergy Anaphylactic Verified 03/20/19 10:57 Shock omeprazole [From Prilosec] Allergy Cannot Verified 03/20/19 10:57 Remember Penicillins Allergy Anaphylactic Verified 03/20/19 10:57 Shock Sulfa (Sulfonamide Allergy Rash Verified 03/20/19 10:57 Antibiotics) Home Medications: Home Meds Albuterol Sulfate [Proair Hfa] 2 puff INH Q6H PRN 02/25/19 [History] Aspirin [Aspirin EC] 325 mg PO BID PRN 02/25/19 [History] Furosemide 20 mg PO DAILY 02/25/19 [History] Lutein/Minerals/Vit A,C & E [I-Jil] 1 tab PO DAILY 02/25/19 [History] Metoprolol Succinate 50 mg PO DAILY 02/25/19 [History] Ranitidine [Zantac] 150 mg PO BID 02/25/19 [History] Sennosides/Docusate Sodium [Senna-Docusate Sodium Tablet] 1 - 2 tab PO DAILY 02/05 [History] allopurinoL [Zyloprim] 50 mg PO DAILY 02/25/19 [History] Acetaminophen [Acetaminophen Extra Strength] 500 mg PO Q6H PRN 02/26/19 [History ] Ondansetron [Zofran] 4 mg PO Q8H PRN 02/26/19 [History] Past Medical History HEENT History: Reports: Glaucoma, Macular Degeneration Other HEENT History: wears eyeglasses, has dentures Cardiovascular History: Reports: Hypertension Respiratory History: Reports: Bronchitis, Recurrent, COPD, SOB Other Respiratory History: stress asthma Gastrointestinal History: Reports: Bowel Obstruction, GERD Other Gastrointestinal History: esophagitis, liver mass, dysphagia, ileus, peg tube placement, small bowel obstruction Genitourinary History: Reports: Chronic Renal Insuffiency, Other (See Below) Other Genitourinary History: Rt nephrectomy ANIMAL CARE GIVER History: Reports: None Musculoskeletal History: Reports: Arthritis Other Musculoskeletal History: dupuytren's contracture Neurological History: Reports: TIA Other Neuro History: ?TIAs many years ago Psychiatric History: Reports: Depression Endocrine/Metabolic History: Reports: None Hematologic History: Reports: None Immunologic History: Reports: None Oncologic (Cancer) History: Reports: Colon, Liver, Lung Other Oncologic History: off of chemo for the past 9 months, with james cath L chest Dermatologic History: Reports: Psoriasis - Infectious Disease History Infectious Disease History: Reports: Measles, Mumps - Past Surgical History Head Surgeries/Procedures: Reports: None HEENT Surgical History: Reports: Cataract Surgery, Naso-Sinus Surgery Cardiovascular Surgical History: Reports: Vascular Surgery Respiratory Surgical History: Reports: Tracheostomy, Other (See Below) GI Surgical History: Reports: Appendectomy, Cholecystectomy, Colon, Colonoscopy , Colostomy, EGD, Other (See Below) Male Surgical History: Reports: Nephrectomy Other Male Surgeries/Procedures: right kidney removed Endocrine Surgical History: Reports: None Neurological Surgical History: Reports: None Musculoskeletal Surgical History: Reports: Other (See Below) Oncologic Surgical History: Reports: Other (See Below) Dermatological Surgical History: Reports: Skin Biopsy Social & Family History - Family History Family Medical History: Noncontributory Cardiac: Reports: CAD, [place] GI: Reports: Other (See Below) : Reports: Renal Disease/Insufficiency Endocrine/Metabolic: Reports: Diabetes, type II Other Oncologic Family History: aunt had brain cancer - Tobacco Use Smoking Status *Q: Former Smoker Used Tobacco, but Quit: Yes Month/Year Tobacco Last Used: 05/1999 - Caffeine Use Caffeine Use: Reports: Soda Other Caffeine Use: occasional - Living Situation & Occupation Living situation: Reports: , with Spouse 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[employer]) H&P Review of Systems - Review of Systems: Review Of Systems: See Below General: Reports: No Symptoms HEENT: Reports: No Symptoms Pulmonary: Reports: No Symptoms Cardiovascular: Reports: No Symptoms Gastrointestinal: Reports: Difficulty Swallowing Genitourinary: Reports: No Symptoms Musculoskeletal: Reports: No Symptoms Skin: Reports: No Symptoms Exam - Exam Exam: See Below - Vital Signs Vital Signs: Last Vital Signs Temp 36.5 C 09/26/19 15:44 Pulse 71 09/26/19 15:44 Resp 20 09/26/19 15:44 BP 153/91 H 09/26/19 15:44 Pulse Ox 98 09/26/19 15:44 Weight: 81.647 kg - Exam General: Alert, Oriented, Cooperative HEENT: Conjunctiva Clear Neck: Supple Lungs: Normal Respiratory Effort, Other (left subclavian port in place, accessed currently) Cardiovascular: Regular Rate GI/Abdominal Exam: Soft Extremities: Normal Inspection Skin: Warm, Dry Sepsis Event Note - Evaluation Sepsis Screening Result: No Definite Risk - Focused Exam Vital Signs: Vital Signs Temp Pulse Resp BP Pulse Ox 09/26/19 15:44 36.5 C 71 20 153/91 H 98 Date Exam was Performed: 09/26/19 Time Exam was Performed: 17:47 *Q Meaningful Use (ADM) - VTE Risk Assess *Q Each Risk Factor Represents 3 Points: Age 75 Years or Greater Total Score 3 Point Risk Factors: 3 Problem List Initiated/Reviewed/Updated: Yes Orders Last 24hrs: Active Orders 24 hr Category Date Time Status Cardiac Monitoring [RC] . DIRECTED Care 09/26/19 15:52 Active Implanted Port Access [RC] ASDIRECTED Care 09/26/19 16:19 Active Chest 1V Frontal [CR] Stat Exams 09/26/19 17:21 Ordered CBC WITH AUTO DIFF [HEME] Stat Lab 09/26/19 17:20 Ordered COMPREHENSIVE METABOLIC PN,CMP [CHEM] Stat Lab 09/26/19 17:21 Ordered Assessment/Plan Comment:: Recurrent esophageal food impaction, with unclear diagnosis. Differential includes eosinophilic esophagitis, reflux esophagitis, radiation esophagitis, or dysmotility disorder including achalasia. Plan for urgent therapeutic upper endoscopy. Given the frequency of these events , I recommend timely outpatient esophageal manometric testing for diagnosis. - Mortality Measure Prognosis:: Good
[2019-09-26] MEDS ORDERED: fentaNYL 100 MCG/2 ML SDV ONE (19:03)
[2019-09-26] MEDS ORDERED: Propofol 200 MG/20 ML SDV ONE (19:03)
[2019-09-26] MEDS ORDERED: Lidocaine 1% 4 ML ONE (19:03)
[2019-09-26] MEDS ORDERED: Succinylcholine/Sod PF 100 MG/5 ML SYRINGE IV ONE (19:04)
[2019-09-26 19:14] VITALS: PULSE 75
--- NOTE | 2019-09-26 19:33 | PCM.PRNOTE ---
- Free Text/Narrative Note: Date: 09/26/2019 Procedure: therapeutic upper endoscopy Indication: esophageal food impaction Endoscopist: Elvin Rodríguez Findings: wad of lettuce stuck in distal esophagus, pushed into stomach with endoscope. traversed esophagus into stomach repeatedly without resistance. The LES appeared patulous. Distal esophageal mucosa appeared friable, raised and erythematous. Several biopsies were obtained. Detailed Report: The patient was taken to the endoscopy suite and time out performed. General endotracheal anesthesia was initiated. The endoscope was inserted orally and advanced past the aryepiglottic folds easily. At the distal esophagus, a wad of vegetable matter was encountered, filling the lumen. With some resistance, the scope was advanced, pushing the bolus into the stomach. Release of the bolus resulted in minor esophageal mucosal trauma and bleeding. The stomach appeared grossly normal, and retroflexion revealed no hiatal hernia. The mucosa appeared abnormally friable, raised and erythematous at the GE junction, and several biopsies with forceps were obtained in this region, outbound telemarketing representative of distal esophageal mucosa. The LES appeared hypotensive. The remainder of the esophagus appeared grossly normal. The patient tolerated the procedure well. Elvin Rodríguez MD General Surgery
--- NOTE | 2019-09-26 19:39 | PCM.POSTAN ---
POST ANESTHESIA ASSESSMENT - MENTAL STATUS Mental Status: Alert, Oriented - VITAL SIGNS Vital Signs: Last Vital Signs Temp 36.5 C 09/26/19 15:44 Pulse 75 09/26/19 19:03 Resp 16 09/26/19 19:03 BP 143/81 H 09/26/19 19:03 Pulse Ox 98 09/26/19 19:03 - RESPIRATORY Respiratory Status: Respiratory Rate WNL, Airway Patent, O2 Saturation Stable - CARDIOVASCULAR CV Status: Pulse Rate WNL, Blood Pressure Stable - GASTROINTESTINAL GI Status: No Symptoms - PAIN Pain Score: 0 - POST OP HYDRATION Hydration Status: Adequate & Stable - OBSERVATIONS Free Text/Narrative:: no anesthesia complications noted
--- NOTE | 2019-09-26 19:41 | PCM.PREANE ---
Preanesthetic Assessment - Procedure Proposed Procedure: EGD - Anesthesia/Transfusion/Family Hx Anesthesia History: Prior Anesthesia Without Reaction Family History of Anesthesia Reaction: No Transfusion History: No Prior Transfusion(s) - Review of Systems General: Weakness, Fatigue, Malaise Pulmonary: Shortness of Breath Cardiovascular: Dyspnea on Exertion Gastrointestinal: Difficulty Swallowing, Vomiting Neurological: No Symptoms Other: Reports: None - Physical Assessment NPO Status Date: 09/26/19 NPO Status Time: 12:00 Vital Signs: Last Vital Signs Temp 36.5 C 09/26/19 15:44 Pulse 75 09/26/19 19:03 Resp 16 09/26/19 19:03 BP 143/81 H 09/26/19 19:03 Pulse Ox 98 09/26/19 19:03 Height: 1.73 m Weight: 81.647 kg ASA Class: 3E Mental Status: Alert & Oriented x3 Airway Class: Mallampati = 1 Dentition: Reports: Dentures Thyro-Mental Finger Breadths: 3 Mouth Opening Finger Breadths: 3 ROM/Head Extension: Full Lungs: Clear to Auscultation, Normal Respiratory Effort, Decreased Breath Sounds Cardiovascular: Regular Rate, Regular Rhythm - Lab Values: Laboratory Last Values WBC 10.83 K/mm3 (4.23-9.07) H 09/26/19 17:25 RBC 4.67 M/mm3 (4.63-6.08) 09/26/19 17:25 Hgb 12.8 gm/dl (13.7-17.5) L 09/26/19 17:25 Hct 39.8 % (40.1-51.0) L 09/26/19 17:25 MCV 85.2 fl (79.0-92.2) 09/26/19 17:25 MCH 27.4 pg (25.7-32.2) 09/26/19 17:25 MCHC 32.2 g/dl (32.2-35.5) 09/26/19 17:25 RDW Std Deviation 43.7 fL (35.1-43.9) 09/26/19 17:25 Plt Count 190 K/mm3 (163-337) 09/26/19 17:25 MPV 10.8 fl (9.4-12.3) 09/26/19 17:25 Neut % (Auto) 79.2 % (34.0-67.9) H 09/26/19 17:25 Lymph % (Auto) 9.1 % (21.8-53.1) L 09/26/19 17:25 Davie % (Auto) 6.3 % (5.3-12.2) 09/26/19 17:25 Eos % (Auto) 5.0 (0.8-7.0) 09/26/19 17:25 Baso % (Auto) 0.2 % (0.1-1.2) 09/26/19 17:25 Neut # (Auto) 8.58 K/mm3 (1.78-5.38) H 09/26/19 17:25 Lymph # (Auto) 0.99 K/mm3 (1.32-3.57) L 09/26/19 17:25 Davie # (Auto) 0.68 K/mm3 (0.30-0.82) 09/26/19 17:25 Eos # (Auto) 0.54 K/mm3 (0.04-0.54) 09/26/19 17:25 Baso # (Auto) 0.02 K/mm3 (0.01-0.08) 09/26/19 17:25 Manual Slide Review Abnormal smear 09/26/19 17:25 Sodium 139 mEq/L (136-145) 09/26/19 17:25 Potassium 4.7 mEq/L (3.5-5.1) 09/26/19 17:25 Chloride 106 mEq/L (98-107) 09/26/19 17:25 Carbon Dioxide 21 mEq/L (21-32) 09/26/19 17:25 Anion Gap 16.7 (5-15) H 09/26/19 17:25 BUN 38 mg/dL (7-18) H 09/26/19 17:25 Creatinine 1.5 mg/dL (0.7-1.3) H 09/26/19 17:25 Est Cr Clr Drug Dosing 38.63 mL/min 09/26/19 17:25 Estimated GFR (MDRD) 45 mL/min (>60) 09/26/19 17:25 BUN/Creatinine Ratio 25.3 (14-18) H 09/26/19 17:25 Glucose 173 mg/dL (83-115) H 09/26/19 17:25 Calcium 8.6 mg/dL (8.5-10.1) 09/26/19 17:25 Total Bilirubin 0.3 mg/dL (0.2-1.0) 09/26/19 17:25 AST 15 U/L (15-37) 09/26/19 17:25 ALT 13 U/L (16-63) L 09/26/19 17:25 Alkaline Phosphatase 151 U/L (46-116) H 09/26/19 17:25 Total Protein 6.6 g/dl (6.4-8.2) 09/26/19 17:25 Albumin 3.4 g/dl (3.4-5.0) 09/26/19 17:25 Globulin 3.2 gm/dL 09/26/19 17:25 Albumin/Globulin Ratio 1.1 (1-2) 09/26/19 17:25 - Imaging/EKG Impressions: SR rate64 - Allergies Allergies/Adverse Reactions: Allergies Allergy/AdvReac Type Severity Reaction Status Date / Time azithromycin Allergy Anaphylactic Verified 09/26/19 19:27 Shock gatifloxacin [From Tequin] Allergy Anaphylactic Verified 09/26/19 19:27 Shock lansoprazole [From Prevacid] Allergy Anaphylactic Verified 09/26/19 19:27 Shock omeprazole [From Prilosec] Allergy Cannot Verified 09/26/19 19:27 Remember Penicillins Allergy Anaphylactic Verified 09/26/19 19:27 Shock Sulfa (Sulfonamide Allergy Rash Verified 09/26/19 19:27 Antibiotics) - Anesthesia Plan Pre-Op Medication Ordered: Beta Pritesh Beta Pritesh: Metoprolol Med Last Dose Date: 09/26/19 Med Last Dose Time: 08:00 - Acknowledgements Anesthesia Type Planned: General Anesthesia Pt an Appropriate Candidate for the Planned Anesthesia: Yes Alternatives and Risks of Anesthesia Discussed w Pt/Guardian: Yes Pt/Guardian Understands and Agrees with Anesthesia Plan: Yes PreAnesthesia Questionnaire HEENT History: Reports: Glaucoma, Macular Degeneration Other HEENT History: wears eyeglasses, has dentures Cardiovascular History: Reports: Hypertension Respiratory History: Reports: Bronchitis, Recurrent, COPD, SOB Other Respiratory History: stress asthma Gastrointestinal History: Reports: Bowel Obstruction, GERD Other Gastrointestinal History: esophagitis, liver mass, dysphagia, ileus, peg tube placement, small bowel obstruction Genitourinary History: Reports: Chronic Renal Insuffiency, Other (See Below) Other Genitourinary History: Rt nephrectomy RESP THER History: Reports: None Musculoskeletal History: Reports: Arthritis Other Musculoskeletal History: dupuytren's contracture Neurological History: Reports: TIA Other Neuro History: ?TIAs many years ago Psychiatric History: Reports: Depression Endocrine/Metabolic History: Reports: None Hematologic History: Reports: None Immunologic History: Reports: None Oncologic (Cancer) History: Reports: Colon, Liver, Lung Other Oncologic History: off of chemo for the past 9 months, with james cath L chest Dermatologic History: Reports: Psoriasis - Infectious Disease History Infectious Disease History: Reports: Measles, Mumps - Past Surgical History Head Surgeries/Procedures: Reports: None HEENT Surgical History: Reports: Cataract Surgery, Naso-Sinus Surgery Cardiovascular Surgical History: Reports: Vascular Surgery Respiratory Surgical History: Reports: Tracheostomy, Other (See Below) GI Surgical History: Reports: Appendectomy, Cholecystectomy, Colon, Colonoscopy , Colostomy, EGD, Other (See Below) Male Surgical History: Reports: Nephrectomy Other Male Surgeries/Procedures: right kidney removed Endocrine Surgical History: Reports: None Neurological Surgical History: Reports: None Musculoskeletal Surgical History: Reports: Other (See Below) Oncologic Surgical History: Reports: Other (See Below) Dermatological Surgical History: Reports: Skin Biopsy - SUBSTANCE USE Smoking Status *Q: Former Smoker Tobacco Use Within Last Twelve Months: Cigarettes - HOME MEDS Home Medications: Home Meds Albuterol Sulfate [Proair Hfa] 2 puff INH Q6H PRN 02/25/19 [History] Aspirin [Aspirin EC] 325 mg PO BID PRN 02/25/19 [History] Furosemide 20 mg PO DAILY 02/25/19 [History] Lutein/Minerals/Vit A,C & E [I-Jil] 1 tab PO DAILY 02/25/19 [History] Metoprolol Succinate 50 mg PO DAILY 02/25/19 [History] Ranitidine [Zantac] 150 mg PO BID 02/25/19 [History] Sennosides/Docusate Sodium [Senna-Docusate Sodium Tablet] 1 - 2 tab PO DAILY 02/05 [History] allopurinoL [Zyloprim] 50 mg PO DAILY 02/25/19 [History] Acetaminophen [Acetaminophen Extra Strength] 500 mg PO Q6H PRN 02/26/19 [History ] Ondansetron [Zofran] 4 mg PO Q8H PRN 02/26/19 [History] - CURRENT (IN HOUSE) MEDS Current Meds: Current Medications Discontinued Medications Fentanyl (Sublimaze) Confirm Administered Dose 100 mcg .ROUTE .STK-MED ONE Stop: 09/26/19 19:04 Glucagon (Glucagen) 1 mg IVPUSH ONETIME ONE Stop: 09/26/19 16:11 Last Admin: 09/26/19 16:32 Dose: 1 mg Hydromorphone HCl (Dilaudid) 0.5 mg IVPUSH ONETIME ONE Stop: 09/26/19 16:00 Last Admin: 09/26/19 16:14 Dose: 0.5 mg Lidocaine HCl (Xylocaine-Mpf 1%) Confirm Administered Dose 4 mls @ as directed .ROUTE .STK-MED ONE Stop: 09/26/19 19:04 Metoclopramide HCl (Reglan) 7.5 mg IVPUSH ONETIME ONE Stop: 09/26/19 16:00 Last Admin: 09/26/19 16:14 Dose: 7.5 mg Propofol (Diprivan 20 Ml) Confirm Administered Dose 200 mg .ROUTE .STK-MED ONE Stop: 09/26/19 19:04
[2019-09-26 20:03] VITALS: BP 137/66
--- NOTE | 2019-09-27 13:33 | CR ---
Chest: Portable view of the chest was obtained. Comparison: Prior chest x-ray of 07/30/19. Multiple nodular densities are seen within both sides of the chest. Some of these nodules appear to have increased in size from previous exam. Infusion port noted entering from the left side. Heart size is normal. Bony structures are grossly intact. Impression: 1. Slight increasing metastatic disease believed to be present within both lungs. Diagnostic code #9 This report was dictated in MDT
== END 2019-09-26 20:20 | disposition home or self-care (01) ==
LOC: JD.ED 15:37 → JD.SDS 17:59 → JD.ED 19:00 → JD.SDS 20:20
PROVIDERS: ATTEND Surgery
DX: T18.128A Food in esophagus causing other injury, initial encounter (principal); K21.0 Gastro-esophageal reflux disease with esophagitis; J44.9 Chronic obstructive pulmonary disease, unspecified; F32.9 Major depressive disorder, single episode, unspecified; I12.9 Hypertensive chronic kidney disease with stage 1 through stage 4 chronic kidney disease, or unspecified chronic kidney disease; N18.9 Chronic kidney disease, unspecified; Z79.899 Other long term (current) drug therapy; Z87.891 Personal history of nicotine dependence; Z88.0 Allergy status to penicillin; Z88.1 Allergy status to other antibiotic agents; Z88.8 Allergy status to other drugs, medicaments and biological substances; Z88.2 Allergy status to sulfonamides; Z79.82 Long term (current) use of aspirin
CPT/HCPCS: 36415; 43239; 43247; 71045; 80053; 85025; 96374; 96375; 99285; J0330; J1170; J1610; J1642; J2001; J2704; J2765; J3010; 00731; 93010

== ENCOUNTER 2019-11-09 14:22 | Emergency (ER) | payer MEDICARE, BC ==
--- NOTE | 2019-11-09 15:07 | EDM.PDOC ---
ED HPI GENERAL MEDICAL PROBLEM - General Chief Complaint: Chest Pain Stated Complaint: FOOD STUCK IN ESOPHAGUS Time Seen by Provider: 11/09/19 15:06 Source of Information: Reports: Patient History Limitations: Reports: No Limitations - History of Present Illness INITIAL COMMENTS - FREE TEXT/NARRATIVE: 78-year-old male once again presents to the ED with a foreign body stuck in his lower esophagus. He was eating chicken at about 1230 when he appreciated a getting stuck in his lower esophagus. Of note patient was seen through the ED with foreign body obstruction in his esophagus which required surgical management on [address] Rodríguez attended him at that time. He has tried to drink water and all kinds of fluids but regurgitated it back up. Right now he does not have any pain at the time of my exam. Last drink of water was 1/2-hour ago. Has known primary cancer of the colon with a primary resection of the segment of colon and reanastomosis. Later found that had spread to his liver and then subsequently to the lungs. Currently not receiving any chemotherapy. Onset: Today, Sudden Onset Date: 11/09/19 Onset Time: 12:30 Duration: Hour(s):, Constant, Other (No pain. Just cannot keep anything down in terms of saliva is coming back up.) Location: Reports: Chest (Pressure in the pit of his stomach sure lower retrosternal chest. No radiation of the back some pain with swallowing in the distribution of the esophagus. He has not spit up any blood.), Abdomen Quality: Reports: Pressure Severity: Moderate Improves with: Reports: None Worsens with: Reports: Other (Swallowing) Context: Denies: Activity, Exercise, Lifting, Sick Contact, Trauma, Other Associated Symptoms: Reports: Cough, Loss of Appetite (Reductive), Malaise, Nausea/Vomiting (There is no nausea . He does seem to have some esophageal irritation from reflux and regurgitation today.). Denies: Confusion, Chest Pain, cough w sputum, Diaphoresis, Fever/Chills, Headaches Treatments SOURCING MANAGER: Reports: Other (see below) (None.) - Related Data Allergies Allergy/AdvReac Type Severity Reaction Status Date / Time azithromycin Allergy Severe Anaphylactic Verified 11/09/19 14:53 Shock gatifloxacin [From Tequin] Allergy Severe Anaphylactic Verified 11/09/19 14:53 Shock lansoprazole [From Prevacid] Allergy Severe Anaphylactic Verified 11/09/19 14:53 Shock omeprazole [From Prilosec] Allergy Severe Cannot Verified 11/09/19 14:53 Remember Penicillins Allergy Severe Anaphylactic Verified 11/09/19 14:53 Shock Sulfa (Sulfonamide Allergy Severe Rash Verified 11/09/19 14:53 Antibiotics) Home Meds: Home Meds Albuterol Sulfate [Proair Hfa] 2 puff INH Q6H PRN 02/25/19 [History] Aspirin [Aspirin EC] 325 mg PO BID PRN 02/25/19 [History] Furosemide 20 mg PO DAILY 02/25/19 [History] Lutein/Minerals/Vit A,C & E [I-Jil] 1 tab PO DAILY 02/25/19 [History] Metoprolol Succinate 50 mg PO DAILY 02/25/19 [History] Ranitidine [Zantac] 150 mg PO BID 02/25/19 [History] Sennosides/Docusate Sodium [Senna-Docusate Sodium Tablet] 1 - 2 tab PO DAILY 02/25/19 [History] allopurinoL [Zyloprim] 50 mg PO DAILY 02/25/19 [History] Acetaminophen [Acetaminophen Extra Strength] 500 mg PO Q6H PRN 02/26/19 [History] Ondansetron [Zofran] 4 mg PO Q8H PRN 02/26/19 [History] Past Medical History HEENT History: Reports: Glaucoma, Macular Degeneration Other HEENT History: wears eyeglasses, has dentures Cardiovascular History: Reports: Hypertension Respiratory History: Reports: Bronchitis, Recurrent, COPD, SOB Other Respiratory History: stress asthma Gastrointestinal History: Reports: Bowel Obstruction, GERD Other Gastrointestinal History: esophagitis, liver mass, dysphagia, ileus, peg tube placement, small bowel obstruction Genitourinary History: Reports: Chronic Renal Insuffiency, Other (See Below) Other Genitourinary History: Rt nephrectomy [employer]PERATOR History: Reports: None Musculoskeletal History: Reports: Arthritis Other Musculoskeletal History: dupuytren's contracture Neurological History: Reports: TIA Other Neuro History: ?TIAs many years ago Psychiatric History: Reports: Depression Endocrine/Metabolic History: Reports: None Hematologic History: Reports: None Immunologic History: Reports: None Oncologic (Cancer) History: Reports: Colon (Primary colon cancer with a resection and primary anastomosis many years ago. Subsequent reoccurrence of cancer involving his liver and subsequently his lung. Currently has extensive nodules in both lungs due to metastatic disease.), Liver, Lung Other Oncologic History: off of chemo for the past 9 months, with james cath L chest Dermatologic History: Reports: Psoriasis - Infectious Disease History Infectious Disease History: Reports: Measles, Mumps - Past Surgical History Head Surgeries/Procedures: Reports: None HEENT Surgical History: Reports: Cataract Surgery, Naso-Sinus Surgery Cardiovascular Surgical History: Reports: Vascular Surgery Respiratory Surgical History: Reports: Tracheostomy, Other (See Below) GI Surgical History: Reports: Appendectomy, Cholecystectomy, Colon, Colonoscopy, Colostomy, EGD, Other (See Below) Male Surgical History: Reports: Nephrectomy Other Male Surgeries/Procedures: right kidney removed Endocrine Surgical History: Reports: None Neurological Surgical History: Reports: None Musculoskeletal Surgical History: Reports: Other (See Below) Oncologic Surgical History: Reports: Other (See Below) Dermatological Surgical History: Reports: Skin Biopsy Social & Family History - Family History Family Medical History: Noncontributory Cardiac: Reports: CAD, DC GI: Reports: Other (See Below) : Reports: Renal Disease/Insufficiency Endocrine/Metabolic: Reports: Diabetes, type II Other Oncologic Family History: aunt had brain cancer - Tobacco Use Smoking Status *Q: Never Smoker - Caffeine Use Caffeine Use: Reports: Soda Other Caffeine Use: occasional - Recreational Drug Use Recreational Drug Use: No - Living Situation & Occupation Living situation: Reports: , with Spouse 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) ED ROS GENERAL - Review of Systems Review Of Systems: See Below Constitutional: Reports: Malaise, Fatigue, Decreased Appetite, Weight Loss. Denies: Fever, Chills HEENT: Reports: Glasses Respiratory: Reports: Shortness of Breath, Cough. Denies: Wheezing, Pleuritic Chest Pain, Sputum, Hemoptysis (Really nonproductive.) Cardiovascular: Reports: Chest Pain (He has some lower retrosternal epigastric chest pain from impacted food bolus distal esophagus), Blood Pressure Problem, Dyspnea on Exertion (Edema both lower extremities.), Edema. Denies: Claudication, Lightheadedness, Orthopnea Endocrine: Reports: Fatigue GI/Abdominal: Reports: Abdominal Pain (Gastric abdominal pain), Constipation, Decreased Appetite, Difficulty Swallowing (Has to make sure his food is cut up very small as he has had recurrent esophageal obstructions.) : Reports: Frequency, Other (Nocturia x2 or 3) Musculoskeletal: Reports: Back Pain, Joint Pain (Neck shoulders at times) Skin: Reports: No Symptoms Neurological: Reports: No Symptoms Psychiatric: Reports: No Symptoms Hematologic/Lymphatic: Reports: No Symptoms Immunologic: Reports: No Symptoms ED EXAM, GENERAL - Physical Exam Exam: See Below Exam Limited By: No Limitations General Appearance: Alert, WD/WN, Anxious, Moderate Distress, Other (Temperature is 36.9. Heart rate is 75 . Respiratory is 20 BP 127/77 pulse ox 96%) Eye Exam: Bilateral Eye: Normal Inspection, PERRL Throat/Mouth: Normal Inspection, Normal Lips, Normal Teeth, Normal Oropharynx Head: Atraumatic, Normocephalic Neck: Normal Inspection, Supple, Non-Tender, Full Range of Motion. No: Lymphadenopathy (L), Lymphadenopathy (R) Respiratory/Chest: Chest Non-Tender, Respiratory Distress, Decreased Breath Sounds (Creased breath sounds to both lower lung perez.), Wheezing (Tattered wheezing.). No: Lungs Clear, Normal Breath Sounds (Mild tachypnea) Cardiovascular: Regular Rate, Rhythm, No Edema, No Gallop, No Murmur, No Rub. No: Normal Peripheral Pulses Peripheral Pulses: 1+: Posterior Tibial (L), Posterior Tibial (R), Dorsalis Pedis (L), Dorsalis Pedis (R), 2+: Carotid (L), Carotid (R) GI/Abdominal: Normal Bowel Sounds, Soft, Non-Tender, No Organomegaly, No Abnormal Bruit, No Mass, Pelvis Stable, Other (Possible surgical scars) Back Exam: Normal Inspection. No: CVA Tenderness (L), CVA Tenderness (R) Extremities: Normal Inspection, Normal Range of Motion, Pedal Edema (Pedal edema mid tib-fib bilaterally 1-2+) Neurological: Alert, Oriented, CN II-XII Intact, Normal Cognition Psychiatric: Anxious Skin Exam: Warm, Dry, Intact, Normal Color, No Rash EKG INTERPRETATION EKG Date: 11/09/19 Time: 15:30 Rhythm: Other (Sinus bradycardia) Rate (Beats/Min): 59 Milmine: LAD-Left Milmine Deviation (-55 degrees) P-Wave: Present (First-degree AV block) QRS: Other (Left anterior fascicular block) ST-T: Normal QT: Normal EKG Interpretation Comments: Abnormal ECG Course - Vital Signs Last Recorded V/S: Last Vital Signs Temp 36.7 C 11/09/19 18:25 Pulse 74 11/09/19 18:25 Resp 22 H 11/09/19 18:25 BP 143/87 H 11/09/19 18:25 Pulse Ox 96 11/09/19 18:25 - Orders/Labs/Meds Orders: Active Orders 24 hr Category Date Time Status EKG Documentation Completion [RC] STAT Care 11/09/19 15:28 Active Labs: Laboratory Tests 11/09/19 11/09/19 Range/Units 16:50 16:50 WBC 8.86 (4.23-9.07) K/mm3 RBC 4.50 L (4.63-6.08) M/mm3 Hgb 12.2 L (13.7-17.5) gm/dl Hct 37.9 L (40.1-51.0) % MCV 84.2 (79.0-92.2) fl MCH 27.1 (25.7-32.2) pg MCHC 32.2 (32.2-35.5) g/dl RDW Std Deviation 42.8 (35.1-43.9) fL Plt Count 199 (163-337) K/mm3 MPV 10.0 (9.4-12.3) fl Neut % (Auto) 73.0 H (34.0-67.9) % Lymph % (Auto) 12.6 L (21.8-53.1) % Garrett % (Auto) 7.9 (5.3-12.2) % Eos % (Auto) 6.0 (0.8-7.0) Baso % (Auto) 0.2 (0.1-1.2) % Neut # (Auto) 6.46 H (1.78-5.38) K/mm3 Lymph # (Auto) 1.12 L (1.32-3.57) K/mm3 Garrett # (Auto) 0.70 (0.30-0.82) K/mm3 Eos # (Auto) 0.53 (0.04-0.54) K/mm3 Baso # (Auto) 0.02 (0.01-0.08) K/mm3 Sodium 134 L (136-145) mEq/L Potassium 4.0 (3.5-5.1) mEq/L Chloride 101 (98-107) mEq/L Carbon Dioxide 22 (21-32) mEq/L Anion Gap 15.0 (5-15) BUN 26 H (7-18) mg/dL Creatinine 1.3 (0.7-1.3) mg/dL Est Cr Clr Drug Dosing 44.58 mL/min Estimated GFR (MDRD) 53 (>60) mL/min BUN/Creatinine Ratio 20.0 H (14-18) Glucose 108 (83-115) mg/dL Calcium 8.5 (8.5-10.1) mg/dL Total Bilirubin 0.3 (0.2-1.0) mg/dL AST 16 (15-37) U/L ALT 15 L (16-63) U/L Alkaline Phosphatase 140 H (46-116) U/L Total Protein 6.8 (6.4-8.2) g/dl Albumin 3.3 L (3.4-5.0) g/dl Globulin 3.5 gm/dL Albumin/Globulin Ratio 0.9 L (1-2) Meds: Medications Discontinued Medications Generic Name Dose Route Start Last Admin Trade Name Freq PRN Reason Stop Dose Admin Glucagon 1 mg 11/09/19 15:29 11/09/19 17:01 Glucagen IVPUSH 11/09/19 15:30 1 mg ONETIME ONE Administration Heparin Sodium (Porcine) 500 units 11/09/19 17:47 11/09/19 18:20 Heparin Lock Flush 100 Units/Ml FLUSH 500 units ASDIRECTED PRN Administration deaccess port Heparin Sodium (Porcine) Confirm 11/09/19 17:50 11/09/19 18:16 Heparin Lock Flush 100 Units/Ml Administered 11/09/19 17:51 Not Given Dose 500 units .ROUTE .STK-MED ONE Hydromorphone HCl 0.5 mg 11/09/19 15:28 11/09/19 16:58 Dilaudid IVPUSH 11/09/19 15:29 0.5 mg ONETIME ONE Administration Sodium Chloride 1,000 mls @ 125 mls/hr 11/09/19 15:30 11/09/19 17:05 Normal Saline IV 125 mls/hr ASDIRECTED SHANNON Administration Metoclopramide HCl 7.5 mg 11/09/19 15:28 11/09/19 16:55 Reglan IVPUSH 11/09/19 15:29 7.5 mg ONETIME ONE Administration - Radiology Interpretation Free Text/Narrative:: 78-year-old male with no 1 diffuse metastatic lung disease from a primary colon cancer presents to the ED with esophageal obstruction secondary to eating chicken. He has had recurrent problems with esophageal obstruction with eating meats. His last requirement for EGD and food bolus removal was 6 weeks ago I believe made ninth by Dr. Rodríguez. Today he was eating a drumstick and make sure that he chew with the chicken meat very thoroughly but it seemed to impact in his lower esophagus about 1230 and is unable to keep down any fluids since that time. We will try and give him Dilaudid 0.5 mg with Reglan 7.5 mg IV and 20 minutes later glucagon 1 mg IV. As the fluid bolus obstruction appears to be in the distal esophagus it has a 50% chance of resolving or helping him pass the bolus. Failing this he will require EGD. - Re-Assessments/Exams Free Text/Narrative Re-Assessment/Exam: 11/09/19 15:29 tried to give him clear soda pop but he regurgitated it right away. He will therefore have intravenous fluids started normal saline 125 mils per hour. He will receive Dilaudid 0.5 mg IV with Reglan 7.5 mg IV and 20 minutes later will try glucagon 1 mg IV to see if we can help him pass the food bolus. Otherwise he is looking at a repeat EGD. Plan routine labs will be obtained as it appears that he is headed for the OR. 11/09/19 17:47 Dr Carlos did see Mr. Ellis and at that time he was able to swallow water and was clear soda pop with no problems. This was about 10 minutes after the glucagon had been given intravenously. I have checked on him subsequently and he is having no trouble swallowing. He will therefore be discharged to home. Labs reveal a normal white count at 8.86. 73% neutrophils on the auto differential. Hemoglobin is 12.2 with hematocrit of 37.9. MCV is normal at 84.2. Platelet count 199,000. Chemistry shows a sodium slightly low at 134. Potassium is 4.0. Chloride is 101 with a bicarb of 22. Anion gap is 15.0. BUN is 26. Creatinine is 1.3. Estimated GFR is 53. Glucose is 108 with a calcium of 8.5 bilirubin is 0.3 AST is 16 ALT 15 alk phos today slightly elevated 140. Total protein is 6.8 with an albumin fraction of 3.3 11/09/19 18:05 when I checked with the patient he was feeling much improved. He had swallowed both water and soda pop with no problems. It appears that the glucagon did the job. He will therefore be discharged to home. Departure - Departure Time of Disposition: 17:55 Disposition: Home, Self-Care 01 Reason for Transfer *Q: Other Condition: Good Clinical Impression: Esophageal foreign body Qualifiers: Encounter type: initial encounter Qualified Code(s): T18.108A - Unspecified foreign body in esophagus causing other injury, initial encounter Instructions: Swallowed Foreign Body, Adult, [id number] Referrals: Brendan Caldera MD [Primary Care Provider] - Forms: ED Department Discharge Additional Instructions: Evaluation in the emergency room today in regards to food bolus obstruction in the lower part of the food pipe that occurred about 1230 hrs. today while eating chicken. Unfortunately you are you have been having problems with recurrent obstruction of the lower food pipe off and on for the last year or 2. Today however it appears that medications given intravenously did the trick in terms of opened up the esophagus and allow you to drink fluids. Therefore continue clear fluids and medication as before. Sepsis Event Note (ED) - Evaluation Sepsis Screening Result: No Definite Risk - Focused Exam Vital Signs: Vital Signs Temp Pulse Resp BP Pulse Ox 11/09/19 18:25 36.7 C 74 22 H 143/87 H 96 11/09/19 14:56 36.9 C 75 20 127/77 96 - My Orders Last 24 Hours: My Active Orders 11/09/19 15:28 EKG Documentation Completion [RC] STAT - Assessment/Plan Last 24 Hours: My Active Orders 11/09/19 15:28 EKG Documentation Completion [RC] STAT
[2019-11-09] MEDS ORDERED: HYDROmorphone 0.5 MG/0.5 ML Syringe IVPUSH ONE (15:28)
[2019-11-09] MEDS ORDERED: Metoclopramide 10 MG/2 ML SDV IVPUSH ONE (15:28)
[2019-11-09] MEDS ORDERED: Glucagon,Human Recombinant 1 MG Vial IVPUSH ONE (15:29)
[2019-11-09] MEDS ORDERED: Sodium Chloride 0.9% 1,000 ML IV SCH (15:30)
--- NOTE | 2019-11-09 15:58 | CR ---
Chest: Portable view of the chest was obtained. Comparison: Prior chest x-ray of 09/26/19. Findings: Numerous metastasis are seen within the chest. Metastasis are slightly increasing in size from previous chest x-ray. Heart size and mediastinum are normal. Left-sided infusion catheter is seen. Degenerative change is noted within the left shoulder. Impression: 1. Slight increasing size of numerous metastasis within the chest when compared to prior study. 2. Other portions of the chest are stable. Diagnostic code #9 This report was dictated in MDT
[2019-11-09 18:43] VITALS: BP 143/87; PULSE 74
== END 2019-11-09 18:25 | disposition home or self-care (01) ==
LOC: JD.ED 14:22
DX: T18.128A Food in esophagus causing other injury, initial encounter (principal); C18.9 Malignant neoplasm of colon, unspecified; C78.00 Secondary malignant neoplasm of unspecified lung; I10 Essential (primary) hypertension; J44.9 Chronic obstructive pulmonary disease, unspecified; K21.9 Gastro-esophageal reflux disease without esophagitis; Z86.73 Personal history of transient ischemic attack (TIA), and cerebral infarction without residual deficits; F32.9 Major depressive disorder, single episode, unspecified; Z88.1 Allergy status to other antibiotic agents; Z88.8 Allergy status to other drugs, medicaments and biological substances; Z88.0 Allergy status to penicillin; Z88.2 Allergy status to sulfonamides; Z79.82 Long term (current) use of aspirin; Z79.899 Other long term (current) drug therapy
CPT/HCPCS: 36415; 71045; 80053; 85025; 93005; 96361; 96374; 96375; 99284; J1170; J1610; J1642; J2765; J7030; 93010

== ENCOUNTER 2019-11-10 08:37 | Emergency (ER) | payer MEDICARE, BC ==
[2019-11-10 09:12] VITALS: BP 160/77; PULSE 80
[2019-11-10] MEDS ORDERED: Lactated Ringers 1,000 ML IV SCH (09:15)
[2019-11-10] MEDS ORDERED: Glucagon,Human Recombinant 1 MG Vial IVPUSH ONE (09:34)
[2019-11-10] MEDS ORDERED: LORazepam 2 MG/ML SDV IVPUSH ONE (09:34)
--- NOTE | 2019-11-10 11:41 | EDM.PDOC ---
ED HPI GENERAL MEDICAL PROBLEM - General Chief Complaint: Gastrointestinal Problem Stated Complaint: FOOD STUCK IN ESOPHAGUS Time Seen by Provider: 11/10/19 09:06 Source of Information: Reports: Patient History Limitations: Reports: No Limitations - History of Present Illness INITIAL COMMENTS - FREE TEXT/NARRATIVE: The patient cannot swallow water. He was here last night for a FB in his esophagus. He had eaten some chicken last night and it got stuck. He was given some medicine and Dr Carlos came in to see him. By the time she came in, he passed the FB and he was able to drink fluids. He was discharged home and this morning he tried to drink more water and it came back up. He has no pain. He has no fever, chills, cough, congestion, runny nose, abdominal pain, nausea or vomiting. He has a history of colon cancer with mets to his lungs and liver. He is not on chemo at this time. Onset: Gradual Duration: Hour(s): Improves with: Reports: None Worsens with: Reports: None Associated Symptoms: Reports: No Other Symptoms - Related Data Allergies Allergy/AdvReac Type Severity Reaction Status Date / Time azithromycin Allergy Severe Anaphylactic Verified 11/10/19 09:03 Shock gatifloxacin [From Tequin] Allergy Severe Anaphylactic Verified 11/10/19 09:03 Shock lansoprazole [From Prevacid] Allergy Severe Anaphylactic Verified 11/10/19 09:03 Shock omeprazole [From Prilosec] Allergy Severe Cannot Verified 11/10/19 09:03 Remember Penicillins Allergy Severe Anaphylactic Verified 11/10/19 09:03 Shock Sulfa (Sulfonamide Allergy Severe Rash Verified 11/10/19 09:03 Antibiotics) Home Meds: Home Meds Albuterol Sulfate [Proair Hfa] 2 puff INH Q6H PRN 02/25/19 [History] Aspirin [Aspirin EC] 325 mg PO BID 02/25/19 [History] Furosemide 20 mg PO DAILY 02/25/19 [History] Lutein/Minerals/Vit A,C & E [I-Jil] 1 tab PO DAILY 02/25/19 [History] Metoprolol Succinate 50 mg PO DAILY 02/25/19 [History] Sennosides/Docusate Sodium [Senna-Docusate Sodium Tablet] 1 - 2 tab PO DAILY 02/25/19 [History] allopurinoL [Zyloprim] 50 mg PO DAILY 02/25/19 [History] Calcium Carbonate [Tums Extra Strength] 750 mg PO ASDIRECTED PRN 11/10/19 [ History] Past Medical History HEENT History: Reports: Glaucoma, Macular Degeneration Other HEENT History: wears eyeglasses, has dentures Cardiovascular History: Reports: Hypertension Respiratory History: Reports: Bronchitis, Recurrent, COPD, SOB Other Respiratory History: stress asthma Gastrointestinal History: Reports: Bowel Obstruction, GERD Other Gastrointestinal History: esophagitis, liver mass, dysphagia, ileus, peg tube placement, small bowel obstruction Genitourinary History: Reports: Chronic Renal Insuffiency, Other (See Below) Other Genitourinary History: Rt 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 History: Reports: None Musculoskeletal History: Reports: Arthritis Other Musculoskeletal History: dupuytren's contracture Neurological History: Reports: TIA Other Neuro History: ?TIAs many years ago Psychiatric History: Reports: Depression Endocrine/Metabolic History: Reports: None Hematologic History: Reports: None Immunologic History: Reports: None Oncologic (Cancer) History: Reports: Colon, Liver, Lung Other Oncologic History: off of chemo for the past 9 months, with james cath L chest Dermatologic History: Reports: Psoriasis - Infectious Disease History Infectious Disease History: Reports: Measles, Mumps - Past Surgical History Head Surgeries/Procedures: Reports: None HEENT Surgical History: Reports: Cataract Surgery, Naso-Sinus Surgery Cardiovascular Surgical History: Reports: Vascular Surgery Respiratory Surgical History: Reports: Tracheostomy, Other (See Below) GI Surgical History: Reports: Appendectomy, Cholecystectomy, Colon, Colonoscopy, Colostomy, EGD, Other (See Below) Male Surgical History: Reports: Nephrectomy Other Male Surgeries/Procedures: right kidney removed Endocrine Surgical History: Reports: None Neurological Surgical History: Reports: None Musculoskeletal Surgical History: Reports: Other (See Below) Oncologic Surgical History: Reports: Other (See Below) Dermatological Surgical History: Reports: Skin Biopsy Social & Family History - Family History Family Medical History: Noncontributory Cardiac: Reports: CAD, AL GI: Reports: Other (See Below) : Reports: Renal Disease/Insufficiency Endocrine/Metabolic: Reports: Diabetes, type II Other Oncologic Family History: aunt had brain cancer - Tobacco Use Smoking Status *Q: Never Smoker Second Hand Smoke Exposure: No - Caffeine Use Caffeine Use: Reports: None Other Caffeine Use: occasional - Recreational Drug Use Recreational Drug Use: No - Living Situation & Occupation Living situation: Reports: , with Spouse 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) ED ROS GENERAL - Review of Systems Review Of Systems: See Below Constitutional: Reports: No Symptoms HEENT: Reports: No Symptoms Respiratory: Reports: No Symptoms Cardiovascular: Reports: No Symptoms Endocrine: Reports: No Symptoms GI/Abdominal: Reports: No Symptoms : Reports: No Symptoms Musculoskeletal: Reports: No Symptoms ED EXAM, GI/ABD - Physical Exam Exam: See Below Exam Limited By: No Limitations General Appearance: Alert, No Apparent Distress Ears: Normal External Exam Nose: Normal Inspection Head: Atraumatic, Normocephalic Neck: Normal Inspection Respiratory/Chest: No Respiratory Distress, Lungs Clear, Normal Breath Sounds Cardiovascular: Regular Rate, Rhythm, No Edema, No Murmur GI/Abdominal Exam: Soft, Non-Tender, No Organomegaly, No Mass Back Exam: Normal Inspection Extremities: Normal Inspection Course - Vital Signs Last Recorded V/S: Last Vital Signs Temp 97.6 F 11/10/19 08:45 Pulse 80 11/10/19 08:45 Resp 18 11/10/19 08:45 BP 160/77 H 11/10/19 08:45 Pulse Ox 98 11/10/19 08:45 - Orders/Labs/Meds Orders: Active Orders 24 hr Category Date Time Status Implanted Port Access [RC] ONETIME Care 11/10/19 09:11 Active Lactated Ringers [Ringers, Lactated] 1,000 ml Med 11/10/19 09:15 Active IV ASDIRECTED Medication Orders Lactated Ringer's (Ringers, Lactated) 1,000 mls @ 75 mls/hr IV ASDIRECTED SHANNON Last Admin: 11/10/19 09:31 Dose: 75 mls/hr Documented by: PHYLLIS Meds: Medications Generic Name Dose Route Start Last Admin Trade Name Freq PRN Reason Stop Dose Admin Lactated Ringer's 1,000 mls @ 75 mls/hr 11/10/19 09:15 11/10/19 09:31 Ringers, Lactated IV 75 mls/hr ASDIRECTED SHANNON Administration Discontinued Medications Generic Name Dose Route Start Last Admin Trade Name Freq PRN Reason Stop Dose Admin Glucagon 1 mg 11/10/19 09:34 11/10/19 09:45 Glucagen IVPUSH 11/10/19 09:35 1 mg ONETIME ONE Administration Lorazepam 1 mg 11/10/19 09:34 11/10/19 09:42 Ativan IVPUSH 11/10/19 09:35 1 mg ONETIME ONE Administration - Re-Assessments/Exams Free Text/Narrative Re-Assessment/Exam: 11/10/19 11:41 I ordered an IV LR at 75mL/hr and I called Dr Carlos and she wanted me to try some meds. I gave him glucagon 1mg IV and ativan 1mg IV. He was able to keep fluids down. I called Dr Carlos and she wanted to see him in the clinic this week. I will discharge him home. 11/10/19 11:52 He tells me that he had radiation for the cancer in his lungs and after that he started to have problems. I will have him on a liquid diet for a few days. Departure - Departure Time of Disposition: 11:55 Disposition: Home, Self-Care 01 Condition: Good Clinical Impression: Esophageal stricture - Discharge Information *PRESCRIPTION DRUG MONITORING PROGRAM REVIEWED*: Not Applicable *COPY OF PRESCRIPTION DRUG MONITORING REPORT IN PATIENT HEATHER: Not Applicable Referrals: Brendan Caldera MD [Primary Care Provider] - Breanna-Tova Pereira MD [Physician] - 3 Days Forms: ED Department Discharge Additional Instructions: Drink only liquids for the next 2 days. Follow up with Dr Carlos on Saturday at 11:15am. Please return if you are worse. Sepsis Event Note (ED) - Evaluation Sepsis Screening Result: No Definite Risk - Focused Exam Vital Signs: Vital Signs Temp Pulse Resp BP Pulse Ox 11/10/19 08:45 97.6 F 80 18 160/77 H 98 - My Orders Last 24 Hours: My Active Orders 11/10/19 09:11 Implanted Port Access [RC] ONETIME 11/10/19 09:15 Lactated Ringers [Ringers, Lactated] 1,000 ml IV ASDIRECTED - Assessment/Plan Last 24 Hours: My Active Orders 11/10/19 09:11 Implanted Port Access [RC] ONETIME 11/10/19 09:15 Lactated Ringers [Ringers, Lactated] 1,000 ml IV ASDIRECTED
== END 2019-11-10 12:10 | disposition home or self-care (01) ==
LOC: JD.ED 08:37
DX: K22.2 Esophageal obstruction (principal); J44.9 Chronic obstructive pulmonary disease, unspecified; I12.9 Hypertensive chronic kidney disease with stage 1 through stage 4 chronic kidney disease, or unspecified chronic kidney disease; N18.9 Chronic kidney disease, unspecified; M19.90 Unspecified osteoarthritis, unspecified site; Z86.73 Personal history of transient ischemic attack (TIA), and cerebral infarction without residual deficits; Z88.1 Allergy status to other antibiotic agents; Z88.8 Allergy status to other drugs, medicaments and biological substances; Z88.0 Allergy status to penicillin; Z88.2 Allergy status to sulfonamides; Z79.82 Long term (current) use of aspirin; Z79.899 Other long term (current) drug therapy
CPT/HCPCS: 96374; 96375; 99283; J1610; J1642; J2060; J7120

== ENCOUNTER 2019-11-23 08:10 | Inpatient (IN) | payer MEDICARE, BC ==
--- NOTE | 2019-11-23 08:21 | EDM.PDOC ---
ED HPI GENERAL MEDICAL PROBLEM - General Chief Complaint: Respiratory Problem Stated Complaint: SOB Time Seen by Provider: 11/23/19 08:20 Source of Information: Reports: Patient History Limitations: Reports: No Limitations - History of Present Illness INITIAL COMMENTS - FREE TEXT/NARRATIVE: 79-year-old male presents to the ED in the accompaniment of his . Patient reports gradually worsening dyspnea over the last 3 days. Orthopnea and he has had to place his bed at 45 degree angle at night to sleep. States he has a cough but is been mostly clear sputum. Denies fever or chills. Denies any central chest pain. No recent changes in medications. He has been on a very soft diet as he is afraid to eat anything solid as he has had so many foods get stuck in his lower esophagus. He is thus slowly losing weight. Patient has a history of lung cancer x2 years. Currently not receiving chemotherapy. 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 Spelt his lung cancer is due to metastatic disease. Denies any hemoptysis. States bowel function is normal. He took all of his medications this morning except his Lasix tablet. Patient really appreciates dyspnea on trying to go up a flight of stairs which is only 6 or 7 stairs. Onset: Gradual Onset Date: 11/20/19 Duration: Day(s):, Getting Worse Quality: Reports: Other Severity: Moderate (Shortness of breath on minimal exertion.) Improves with: Reports: Rest Worsens with: Reports: Other Context: Reports: Other (Spontaneous occurrence). Denies: Activity (Worse with exertion or walking up stairs.), Exercise, Lifting, Sick Contact, Trauma Associated Symptoms: Reports: Cough, cough w sputum, Loss of Appetite, Malaise, Shortness of Breath, Weakness. Denies: No Other Symptoms, Confusion, Chest Pain (There is sputum), Diaphoresis, Fever/Chills, Headaches, Nausea/Vomiting, Rash, Seizure, Syncope Treatments PROJECT CONTROL MANAGER: Reports: Other (see below) (None.) - Related Data Allergies Allergy/AdvReac Type Severity Reaction Status Date / Time azithromycin Allergy Severe Anaphylactic Verified 11/23/19 08:23 Shock gatifloxacin [From Tequin] Allergy Severe Anaphylactic Verified 11/23/19 08:23 Shock lansoprazole [From Prevacid] Allergy Severe Anaphylactic Verified 07/06/20 08:23 Shock omeprazole [From Prilosec] Allergy Severe Cannot Verified 11/23/19 08:23 Remember Penicillins Allergy Severe Anaphylactic Verified 11/23/19 08:23 Shock Sulfa (Sulfonamide Allergy Severe Rash Verified 11/23/19 08:23 Antibiotics) Home Meds: Home Meds Albuterol Sulfate [Proair Hfa] 2 puff INH Q6H PRN 02/25/19 [History] Aspirin [Aspirin EC] 325 mg PO BID 02/25/19 [History] Furosemide 20 mg PO DAILY 02/25/19 [History] Lutein/Minerals/Vit A,C & E [I-Jil] 1 tab PO DAILY 02/25/19 [History] Metoprolol Succinate 50 mg PO DAILY 02/25/19 [History] Sennosides/Docusate Sodium [Senna-Docusate Sodium Tablet] 1 - 2 tab PO DAILY 02/25/19 [History] allopurinoL [Zyloprim] 50 mg PO DAILY 02/25/19 [History] Calcium Carbonate [Tums Extra Strength] 750 mg PO ASDIRECTED PRN 11/10/19 [History] Past Medical History HEENT History: Reports: Glaucoma, Macular Degeneration Other HEENT History: wears eyeglasses, has dentures Cardiovascular History: Reports: Hypertension Respiratory History: Reports: Bronchitis, Recurrent, COPD, SOB Other Respiratory History: stress asthma Gastrointestinal History: Reports: Bowel Obstruction, GERD Other Gastrointestinal History: esophagitis, liver mass, dysphagia, ileus, peg tube placement, small bowel obstruction Genitourinary History: Reports: Chronic Renal Insuffiency, Other (See Below) Other Genitourinary History: Rt nephrectomy SURFACE LOGGING SYSTEMS LOGGER History: Reports: None Musculoskeletal History: Reports: Arthritis Other Musculoskeletal History: dupuytren's contracture Neurological History: Reports: TIA Other Neuro History: ?TIAs many years ago Psychiatric History: Reports: Depression Endocrine/Metabolic History: Reports: None Hematologic History: Reports: None Immunologic History: Reports: None Oncologic (Cancer) History: Reports: Colon (Primary cancer is of the colon with resection of the colon and unfortunately a recurrence of cancer involving his liver and lung. Patient has diffuse nodular metastatic disease of the lung.), Liver, Lung Other Oncologic History: off of chemo for the past 9 months, with james cath L chest Dermatologic History: Reports: Psoriasis - Infectious Disease History Infectious Disease History: Reports: Measles, Mumps - Past Surgical History Head Surgeries/Procedures: Reports: None HEENT Surgical History: Reports: Cataract Surgery, Naso-Sinus Surgery Cardiovascular Surgical History: Reports: Vascular Surgery Respiratory Surgical History: Reports: Tracheostomy, Other (See Below) GI Surgical History: Reports: Appendectomy, Cholecystectomy, Colon, Colonoscopy, Colostomy, EGD, Other (See Below) Male Surgical History: Reports: Nephrectomy Other Male Surgeries/Procedures: right kidney removed Endocrine Surgical History: Reports: None Neurological Surgical History: Reports: None Musculoskeletal Surgical History: Reports: Other (See Below) Oncologic Surgical History: Reports: Other (See Below) Dermatological Surgical History: Reports: Skin Biopsy Social & Family History - Family History Family Medical History: Noncontributory Cardiac: Reports: CAD, [place] GI: Reports: Other (See Below) : Reports: Renal Disease/Insufficiency Endocrine/Metabolic: Reports: Diabetes, type II Other Oncologic Family History: aunt had brain cancer - Caffeine Use Caffeine Use: Reports: None Other Caffeine Use: occasional - Living Situation & Occupation Living situation: Reports: , with Spouse 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) ED ROS GENERAL - Review of Systems Review Of Systems: See Below Constitutional: Reports: Malaise, Weakness, Fatigue, Decreased Appetite, Weight Loss. Denies: Fever, Chills HEENT: Reports: Glasses Respiratory: Reports: Shortness of Breath, Cough, Sputum. Denies: Wheezing, Pleuritic Chest Pain, Hemoptysis Cardiovascular: Reports: Dyspnea on Exertion. Denies: Chest Pain (Her sputum), Blood Pressure Problem, Edema, Lightheadedness, Orthopnea, Palpitations Endocrine: Reports: Fatigue GI/Abdominal: Reports: Diarrhea, Nausea, Other (Known problems with recurrent food boluses getting stuck in his lower esophagus. Has a esophageal stricture). Denies: Hematemesis, Hematochezia (Stools are for the most part formed but are on the looser side. No hematochezia), Stool Incontinence, Vomiting (Fleeting nausea.) : Reports: Frequency, Other (Nocturia x2. No BPH.) Musculoskeletal: Reports: Neck Pain, Shoulder Pain, Back Pain, Joint Pain Skin: Reports: No Symptoms Neurological: Reports: No Symptoms Psychiatric: Reports: No Symptoms Hematologic/Lymphatic: Reports: No Symptoms Immunologic: Reports: No Symptoms ED EXAM, GENERAL - Physical Exam Exam: See Below Exam Limited By: No Limitations General Appearance: Alert, WD/WN, No Apparent Distress, Other (Temperature is 36.2 with a heart rate of 88 and sinus. Respiratory is 18 with O2 sats of 97 to 98%. BP is 129/88.) Eye Exam: Bilateral Eye: Normal Fundi (No scleral icterus or blepharal pallor.), PERRL Throat/Mouth: Normal Inspection, Normal Lips, Normal Oropharynx, Other Head: Atraumatic (Tongue is moist), Normocephalic Neck: Normal Inspection, Limited Range of Motion. No: Carotid Bruit, Lymphadenopathy (L) (Crepitus on lateral rotation), Lymphadenopathy (R) Respiratory/Chest: No Respiratory Distress, Lungs Clear, Normal Breath Sounds, Chest Non-Tender, Other (Port-A-Cath left upper anterior chest.) Cardiovascular: Normal Peripheral Pulses, Regular Rate, Rhythm, No Edema, No Gallop, No Murmur, No Rub Peripheral Pulses: 2+: Posterior Tibial (L), Posterior Tibial (R), Dorsalis Pe dis (L), Dorsalis Pedis (R) GI/Abdominal: Normal Bowel Sounds, Soft, Non-Tender, No Organomegaly, No Abnormal Bruit, No Mass, Pelvis Stable, Other (Multiple well-healed surgical scars.) Back Exam: Normal Inspection, Full Range of Motion. No: CVA Tenderness (L), CVA Tenderness (R) Extremities: Normal Inspection, Normal Range of Motion, Non-Tender, No Pedal Edema Neurological: Alert, Oriented, CN II-XII Intact, Normal Cognition Psychiatric: Normal Affect, Normal Mood Skin Exam: Warm, Dry, Intact, Normal Color, No Rash EKG INTERPRETATION EKG Date: 11/23/19 Time: 08:17 Rhythm: NSR Rate (Beats/Min): 84 [place]: LAD-Left [place] Deviation (-80 degrees) P-Wave: Present (With first-degree AV block) QRS: Other (Right bundle branch block pattern with left anterior fascicular block pattern.) ST-T: Other (Repolarization abnormality V1 to V5.) QT: Prolonged (Mildly prolonged.) EKG Interpretation Comments: Abnormal ECG. Course - Vital Signs Last Recorded V/S: Last Vital Signs Temp 36.2 C 11/23/19 08:18 Pulse 88 11/23/19 08:18 Resp 18 11/23/19 08:18 BP 129/88 11/23/19 08:18 Pulse Ox 98 11/23/19 08:18 - Orders/Labs/Meds Orders: Active Orders 24 hr Category Date Time Status EKG Documentation Completion [RC] STAT Care 11/23/19 08:36 Active Oxygen Therapy [RC] PRN Care 11/23/19 12:22 Active VTE/DVT Education [RC] PER UNIT ROUTINE Care 11/23/19 12:22 Active Vital Signs [RC] Q4H Care 11/23/19 12:22 Active OSMOLALITY,URINE [URCHEM] Stat Lab 11/23/19 12:21 Ordered SODIUM,URINE RANDOM [URCHEM] Stat Lab 11/23/19 12:18 Ordered Sodium Chloride 0.9% [Normal Saline] 1,000 ml Med 11/23/19 08:45 Active IV ASDIRECTED Medication Orders Acetaminophen (Tylenol) 650 mg PO Q4H PRN PRN Reason: Pain (Mild 1-3)/fever Sodium Chloride (Normal Saline) 1,000 mls @ 100 mls/hr IV ASDIRECTED SHANNON Last Admin: 11/23/19 09:27 Dose: 50 mls/hr Documented by: MADI Ondansetron HCl (Zofran) 4 mg IV Q6H PRN PRN Reason: Nausea/Vomiting Labs: Laboratory Tests 11/23/19 11/23/19 11/23/19 Range/Units 09:17 09:17 09:17 WBC 8.59 (4.23-9.07) K/mm3 RBC 4.30 L (4.63-6.08) M/mm3 Hgb 11.5 L (13.7-17.5) gm/dl Hct 35.1 L (40.1-51.0) % MCV 81.6 (79.0-92.2) fl MCH 26.7 (25.7-32.2) pg MCHC 32.8 (32.2-35.5) g/dl RDW Std Deviation 38.5 (35.1-43.9) fL Plt Count 221 (163-337) K/mm3 MPV 10.4 (9.4-12.3) fl Neut % (Auto) 77.0 H (34.0-67.9) % Lymph % (Auto) 9.1 L (21.8-53.1) % [place] % (Auto) 8.5 (5.3-12.2) % Eos % (Auto) 4.9 (0.8-7.0) Baso % (Auto) 0.2 (0.1-1.2) % Neut # (Auto) 6.61 H (1.78-5.38) K/mm3 Lymph # (Auto) 0.78 L (1.32-3.57) K/mm3 [place] # (Auto) 0.73 (0.30-0.82) K/mm3 Eos # (Auto) 0.42 (0.04-0.54) K/mm3 Baso # (Auto) 0.02 (0.01-0.08) K/mm3 Manual Slide Review Abnormal smear ESR (0-15) mm/hr PT 10.8 (9.7-12.0) SECONDS INR 0.99 APTT 47 H (22-31) SECONDS Sodium 123 L D (136-145) mEq/L Potassium 4.5 (3.5-5.1) mEq/L Chloride 91 L (98-107) mEq/L Carbon Dioxide 21 (21-32) mEq/L Anion Gap 15.5 H (5-15) BUN 21 H (7-18) mg/dL Creatinine 1.2 (0.7-1.3) mg/dL Est Cr Clr Drug Dosing 47.50 mL/min Estimated GFR (MDRD) 58 (>60) mL/min BUN/Creatinine Ratio 17.5 (14-18) Glucose 114 (83-115) mg/dL Serum Osmolality (280-300) mosm/kg Uric Acid 6.3 (3.5-7.2) mg/dL Calcium 8.3 L (8.5-10.1) mg/dL Magnesium 1.6 L (1.8-2.4) mg/dl Total Bilirubin 0.5 (0.2-1.0) mg/dL AST 26 (15-37) U/L ALT 22 (16-63) U/L Alkaline Phosphatase 136 H (46-116) U/L Troponin I < 0.017 (0.00-0.056) ng/mL C-Reactive Protein 1.9 H* (<1.0) mg/dL NT-Pro-B Natriuret Pep (0-450) pg/mL Total Protein 6.2 L (6.4-8.2) g/dl Albumin 3.0 L (3.4-5.0) g/dl Globulin 3.2 gm/dL Albumin/Globulin Ratio 0.9 L (1-2) 11/23/19 11/23/19 11/23/19 Range/Units 09:17 09:17 09:17 WBC (4.23-9.07) K/mm3 RBC (4.63-6.08) M/mm3 Hgb (13.7-17.5) gm/dl Hct (40.1-51.0) % MCV (79.0-92.2) fl MCH (25.7-32.2) pg MCHC (32.2-35.5) g/dl RDW Std Deviation (35.1-43.9) fL Plt Count (163-337) K/mm3 MPV (9.4-12.3) fl Neut % (Auto) (34.0-67.9) % Lymph % (Auto) (21.8-53.1) % [place] % (Auto) (5.3-12.2) % Eos % (Auto) (0.8-7.0) Baso % (Auto) (0.1-1.2) % Neut # (Auto) (1.78-5.38) K/mm3 Lymph # (Auto) (1.32-3.57) K/mm3 [place] # (Auto) (0.30-0.82) K/mm3 Eos # (Auto) (0.04-0.54) K/mm3 Baso # (Auto) (0.01-0.08) K/mm3 Manual Slide Review ESR 27 H (0-15) mm/hr PT (9.7-12.0) SECONDS INR APTT (22-31) SECONDS Sodium (136-145) mEq/L Potassium (3.5-5.1) mEq/L Chloride (98-107) mEq/L Carbon Dioxide (21-32) mEq/L Anion Gap (5-15) BUN (7-18) mg/dL Creatinine (0.7-1.3) mg/dL Est Cr Clr Drug Dosing mL/min Estimated GFR (MDRD) (>60) mL/min BUN/Creatinine Ratio (14-18) Glucose (83-115) mg/dL Serum Osmolality 262 L (280-300) mosm/kg Uric Acid (3.5-7.2) mg/dL Calcium (8.5-10.1) mg/dL Magnesium (1.8-2.4) mg/dl Total Bilirubin (0.2-1.0) mg/dL AST (15-37) U/L ALT (16-63) U/L Alkaline Phosphatase (46-116) U/L Troponin I (0.00-0.056) ng/mL C-Reactive Protein (<1.0) mg/dL NT-Pro-B Natriuret Pep 398 (0-450) pg/mL Total Protein (6.4-8.2) g/dl Albumin (3.4-5.0) g/dl Globulin gm/dL Albumin/Globulin Ratio (1-2) Meds: Medications Generic Name Dose Route Start Last Admin Trade Name Freq PRN Reason Stop Dose Admin Acetaminophen 650 mg 11/23/19 12:26 Tylenol PO Q4H PRN Pain (Mild 1-3)/fever Sodium Chloride 1,000 mls @ 100 mls/hr 11/23/19 08:45 11/23/19 09:27 Normal Saline IV 50 mls/hr ASDIRECTED SHANNON Administration Ondansetron HCl 4 mg 11/23/19 12:26 Zofran IV Q6H PRN Nausea/Vomiting - Radiology Interpretation Free Text/Narrative:: 79-year-old male presents to the ED for evaluation of gradually worsening dyspnea over the last 3 days. It is mostly clear sputum production. He has known to have primary carcinoma of the colon with metastatic disease to the lung. Denies any hemoptysis. Has had to sleep at a 45 degree angle over the last 4 days. He is dyspneic on minimal exertion such as going up 1 flight of stairs. Even walking from the bedroom to the bathroom makes him mildly dyspneic. He is not on home oxygen therapy. He is currently on Lasix 20 mg once daily which she did not take this morning. Port-A-Cath left upper anterior chest. Plan routine labs to be performed including a BNP. 1 view chest x-ray to be obtained and an ECG. - Re-Assessments/Exams Free Text/Narrative Re-Assessment/Exam: 11/23/19 09:29: Portable chest x-ray reveals multiple nodules throughout both lung perez perhaps slightly larger than last review. These represent metas tatic nodules from primary cancer of the lung. 11/23/19 10:09 Hematology reveals a normal white count at 8.59. Auto differential shows 77% neutrophils. Hemoglobin slightly low at 11.5 with hematocrit of 35.1. Platelet count is 221,000. Slide is being reviewed. 11/23/19 11:40 Sedimentation rate is 27. Mildly elevated. PT is 10.8 with an INR of 0.99. PTT is 47 elevated. Sodium 123 which is low potassium 4.5 chloride 91 with a bicarb of 21. Anion gap is 15.5. BUN is 21. Creatinine is 1.2. Glucose 114 with a uric acid is 6.3. Calcium is slightly low at 8.3. Magnesium is low at 1.6. Liver function is normal other than slightly elevated alk phosphatase at 136. Troponin I is less than 0.017. C-reactive protein is 1.9. BNP is 398. Total protein 6.2 with an albumin fraction of 3.0 which is low. 11/23/19 12:19 I have spoken with Dr. Oakley on-call hospitalist and he will attend the patient in the ED. plan will be to admit him to the hospital per observation status to improve his hyponatremic status. He has very minimal elevated BNP or congestive heart failure. Normal saline will be infused at 100 mils per hour 11/23/19 13:14 serum osmolality returned at 262 indicating a dilutional hyponatremia. She has not yet voided to get a random sodium sample. 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, Hyponatremia Metastatic cancer to lung Qualifiers: Laterality: unspecified laterality Qualified Code(s): C78.00 - Secondary malignant neoplasm of unspecified lung - Discharge Information *PRESCRIPTION DRUG MONITORING PROGRAM REVIEWED*: Not Applicable *COPY OF PRESCRIPTION DRUG MONITORING REPORT IN PATIENT HEATHER: Not Applicable Sepsis Event Note (ED) - Focused Exam Vital Signs: Vital Signs Temp Pulse Resp BP Pulse Ox 11/23/19 08:18 36.2 C 88 18 129/88 98 - My Orders Last 24 Hours: My Active Orders 11/23/19 08:36 EKG Documentation Completion [RC] STAT 11/23/19 08:45 Sodium Chloride 0.9% [Normal Saline] 1,000 ml IV ASDIRECTED 11/23/19 12:18 SODIUM,URINE RANDOM [URCHEM] Stat - Assessment/Plan Last 24 Hours: My Active Orders 11/23/19 08:36 EKG Documentation Completion [RC] STAT 11/23/19 08:45 Sodium Chloride 0.9% [Normal Saline] 1,000 ml IV ASDIRECTED 11/23/19 12:18 SODIUM,URINE RANDOM [URCHEM] Stat
--- NOTE | 2019-11-23 09:04 | CR ---
Chest: Portable view of the chest was obtained. Comparison: Prior chest x-ray of 11/09/19. Diffuse and multiple pulmonary nodules are seen on both sides of the chest. Findings are without definite interval change from previous exam. No acute parenchymal change is appreciated. Heart size is not enlarged. Upper mediastinum is normal. Bony structures are grossly intact. Impression: 1. Multiple pulmonary nodules seen diffusely within both sides of the chest. 2. No definite change from previous chest x-ray is seen. Diagnostic code #9 This report was dictated in MDT
[2019-11-23] MEDS: Sodium Chloride 0.9% 1,000 ML IV SCH ×2 (09:27→23:04)
[2019-11-23] MEDS ORDERED: Ondansetron 4 MG/2 ML SDV IV PRN (12:26)
[2019-11-23] MEDS ORDERED: Acetaminophen 325 MG Tab PO PRN (12:26)
--- NOTE | 2019-11-23 12:28 | PCM.HP.2 ---
H&P History of Present Illness - General Date of Service: 11/23/19 Admit Problem/Dx: Admission Diagnosis/Problem Admission Diagnosis/Problem Hyponatremia Source of Information: Patient, Old Records, Provider, RN, RN Notes Reviewed History Limitations: Reports: No Limitations - History of Present Illness Initial Comments - Free Text/Narative: Qi Ellis is an 79 yo male resents to ED on 11/23/2019 with worsening dyspnea over the past 3 days. Reports this is most obvious when attempting to ambulate upstairs. He reports orthopnea and a cough productive of clear sputum. No fever, chills, chest pain, hemoptysis, or recent medication changes. He has been seen in our ED multiple times complaining of food stuck in his lower esophagus. He states because of this he has been eating a mostly soft diet. He has a history of metastatic lung cancer x2 years. Is believed the primary cancer was in his colon and he had a transient colostomy. He is not been receiving any chemotherapy. Denies any current bowel symptoms. In the ED temp was 36.2 Celsius. Pulse 88. Respirations 18. Blood pressure 129/88. Pulse ox 98%. Twelve-lead EKG is obtained showing a sinus rhythm at 84 bpm with LAD and a first-degree AV block. There is a right bundle branch block pattern with left anterior fascicular block and a repolarization abnormality in V1 to V5. QTC is noted to be mildly prolonged as well. Labs are obtained. There is no leukocytosis but his hemoglobin is slightly low at 11.5. Neutrophils are elevated at 77%. INR 0.99. Sodium is quite low at 123. Potassium 4.5. Chloride is low at 91. Anion gap is slightly high at 15.5. BUN is high at 21. Creatinine high at 1.2. GFR is 58. Uric acid is normal at 6.3. Calcium is low at 8.3. Magnesium low at 1.6. Troponin negative at less than 0.017. CRP is mildly elevated at 1.9. ESR is 27. Serum osmolality is low at 262. proBNP is normal at 398. Given Tylenol and Zofran. Started on saline IV infusion. He does have a Port-A-Cath in his upper left anterior chest. Chest x-ray obtained showing multiple pulmonary nodules seen diffusely within both sides of the chest. No definitive change from previous chest x-ray. He is admitted observation status with telemetry. Carries a history of glaucoma, macular degeneration, hypertension, recurrent bronchitis, COPD, shortness of breath, stress asthma, bowel obstruction, GERD, liver mass, dysphagia, prior small bowel obstruction, chronic renal insufficiency, nephrectomy, arthritis, Butrans contracture, TIA, depression, colon cancer with mets to his liver and lung, psoriasis. He is a CPR Only. PCP is Dr. Caldera. His oncologist is Dr. Loredo. - Related Data Allergies/Adverse Reactions: Allergies Allergy/AdvReac Type Severity Reaction Status Date / Time azithromycin Allergy Severe Anaphylactic Verified 11/23/19 08:23 Shock gatifloxacin [From Tequin] Allergy Severe Anaphylactic Verified 11/23/19 08:23 Shock lansoprazole [From Prevacid] Allergy Severe Anaphylactic Verified 11/23/19 08:23 Shock Penicillins Allergy Severe Anaphylactic Verified 11/23/19 08:23 Shock omeprazole [From Prilosec] Allergy Mild Cannot Verified 11/23/19 15:26 Remember Sulfa (Sulfonamide Allergy Mild Rash Verified 11/23/19 15:26 Antibiotics) Home Medications: Home Meds Albuterol Sulfate [Proair Hfa] 2 puff INH Q6H PRN 02/25/19 [History] Aspirin [Aspirin EC] 325 mg PO BID 02/25/19 [History] Furosemide 20 mg PO DAILY 02/25/19 [History] Lutein/Minerals/Vit A,C & E [I-Jil] 1 tab PO DAILY 02/25/19 [History] Metoprolol Succinate 50 mg PO DAILY 02/25/19 [History] Sennosides/Docusate Sodium [Senna-Docusate Sodium Tablet] 1 - 2 tab PO DAILY 02/25/19 [History] allopurinoL [Zyloprim] 50 mg PO DAILY 02/25/19 [History] Calcium Carbonate [Tums Extra Strength] 750 mg PO ASDIRECTED PRN 11/10/19 [History] Past Medical History HEENT History: Reports: Glaucoma, Macular Degeneration Other HEENT History: wears eyeglasses, has dentures Cardiovascular History: Reports: Hypertension Respiratory History: Reports: Bronchitis, Recurrent, COPD, SOB Other Respiratory History: stress asthma Gastrointestinal History: Reports: Bowel Obstruction, GERD Other Gastrointestinal History: esophagitis, liver mass, dysphagia, ileus, peg tube placement, small bowel obstruction Genitourinary History: Reports: Chronic Renal Insuffiency, Other (See Below) Other Genitourinary History: Rt nephrectomy FINANCE TEACHER History: Reports: None Musculoskeletal History: Reports: Arthritis Other Musculoskeletal History: dupuytren's contracture Neurological History: Reports: TIA Other Neuro History: ?TIAs many years ago Psychiatric History: Reports: Depression Endocrine/Metabolic History: Reports: None Hematologic History: Reports: None Immunologic History: Reports: None Oncologic (Cancer) History: Reports: Colon, Liver, Lung Other Oncologic History: off of chemo for the past 9 months, with james cath L chest Dermatologic History: Reports: Psoriasis - Infectious Disease History Infectious Disease History: Reports: Measles, Mumps - Past Surgical History Head Surgeries/Procedures: Reports: None HEENT Surgical History: Reports: Cataract Surgery, Naso-Sinus Surgery Cardiovascular Surgical History: Reports: Vascular Surgery Respiratory Surgical History: Reports: Tracheostomy, Other (See Below) GI Surgical History: Reports: Appendectomy, Cholecystectomy, Colon, Colonoscopy, Colostomy, EGD, Other (See Below) Male Surgical History: Reports: Nephrectomy Other Male Surgeries/Procedures: right kidney removed Endocrine Surgical History: Reports: None Neurological Surgical History: Reports: None Musculoskeletal Surgical History: Reports: Other (See Below) Oncologic Surgical History: Reports: Other (See Below) Dermatological Surgical History: Reports: Skin Biopsy Social & Family History - Family History Family Medical History: Noncontributory Cardiac: Reports: CAD, [place] GI: Reports: Other (See Below) : Reports: Renal Disease/Insufficiency Endocrine/Metabolic: Reports: Diabetes, type II Other Oncologic Family History: aunt had brain cancer - Tobacco Use Smoking Status *Q: Former Smoker Used Tobacco, but Quit: Yes Month/Year Tobacco Last Used: 20 years ago - Caffeine Use Caffeine Use: Reports: None Other Caffeine Use: occasional - Recreational Drug Use Recreational Drug Use: No - Living Situation & Occupation Living situation: Reports: , with Spouse 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) H&P Review of Systems - Review of Systems: Review Of Systems: See Below General: Reports: Malaise, Weakness, Fatigue, Decreased Appetite, Weight Loss. Denies: Fever, Chills HEENT: Reports: No Symptoms. Denies: Headaches, Sore Throat Pulmonary: Reports: Shortness of Breath, Cough, Sputum. Denies: Wheezing, Pleuritic Chest Pain Cardiovascular: Reports: Dyspnea on Exertion, Orthopnea. Denies: Chest Pain, Palpitations, Edema Gastrointestinal: Reports: Diarrhea, Difficulty Swallowing (History of esophageal stricture with frequent food boluses stuck in lower esophagus ), Nausea Genitourinary: Reports: Frequency. Denies: Pain Musculoskeletal: Reports: Neck Pain, Shoulder Pain, Back Pain, Joint Pain, Muscle Pain Skin: Reports: No Symptoms. Denies: Cyanosis Psychiatric: Reports: No Symptoms. Denies: Confusion Neurological: Reports: No Symptoms, Difficulty Walking (2/2 SOB), Weakness. D enies: Numbness, Tingling Hematologic/Lymphatic: Reports: No Symptoms Exam - Exam Exam: See Below - Vital Signs Vital Signs: Last Vital Signs Temp 97.2 F 11/23/19 08:18 Pulse 88 11/23/19 08:18 Resp 18 11/23/19 08:18 BP 129/88 11/23/19 08:18 Pulse Ox 98 11/23/19 08:18 Weight: 175 lb - Exam Quality Assessment: DVT Prophylaxis. No: Supplemental Oxygen General: Alert, Oriented, Cooperative. No: Mild Distress HEENT: Conjunctiva Clear, EACs Clear, Mucosa Moist & [place], PERRLA Neck: Supple, Trachea Midline Lungs: Clear to Auscultation, Normal Respiratory Effort, Other Cardiovascular: Regular Rate, Regular Rhythm, Other (Port in upper left chest ) GI/Abdominal Exam: Normal Bowel Sounds, Soft, Non-Tender, No Distention (Male) Exam: Deferred Rectal (Males) Exam: Deferred Back Exam: Normal Inspection, Full Range of Motion Extremities: Normal Inspection, Normal Range of Motion, Non-Tender, No Pedal Edema, Normal Capillary Refill Peripheral Pulses: 2+: Radial (L), Radial (R), Dorsalis Pedis (L), Dorsalis Pedis (R) Skin: Warm, Dry, Intact Neurological: Cranial Nerves Intact (Grossly ) Neuro Extensive - Mental Status: Alert, Oriented x3 - Patient Data Lab Results Last 24 hrs: Laboratory Results - last 24 hr 11/23/19 11/23/19 11/23/19 Range/Units 09:17 09:17 09:17 WBC 8.59 (4.23-9.07) K/mm3 RBC 4.30 L (4.63-6.08) M/mm3 Hgb 11.5 L (13.7-17.5) gm/dl Hct 35.1 L (40.1-51.0) % MCV 81.6 (79.0-92.2) fl MCH 26.7 (25.7-32.2) pg MCHC 32.8 (32.2-35.5) g/dl RDW Std Deviation 38.5 (35.1-43.9) fL Plt Count 221 (163-337) K/mm3 MPV 10.4 (9.4-12.3) fl Neut % (Auto) 77.0 H (34.0-67.9) % Lymph % (Auto) 9.1 L (21.8-53.1) % Elbert % (Auto) 8.5 (5.3-12.2) % Eos % (Auto) 4.9 (0.8-7.0) Baso % (Auto) 0.2 (0.1-1.2) % Neut # (Auto) 6.61 H (1.78-5.38) K/mm3 Lymph # (Auto) 0.78 L (1.32-3.57) K/mm3 Elbert # (Auto) 0.73 (0.30-0.82) K/mm3 Eos # (Auto) 0.42 (0.04-0.54) K/mm3 Baso # (Auto) 0.02 (0.01-0.08) K/mm3 Manual Slide Review Abnormal smear ESR (0-15) mm/hr PT 10.8 (9.7-12.0) SECONDS INR 0.99 APTT 47 H (22-31) SECONDS Sodium 123 L D (136-145) mEq/L Potassium 4.5 (3.5-5.1) mEq/L Chloride 91 L (98-107) mEq/L Carbon Dioxide 21 (21-32) mEq/L Anion Gap 15.5 H (5-15) BUN 21 H (7-18) mg/dL Creatinine 1.2 (0.7-1.3) mg/dL Est Cr Clr Drug Dosing 47.50 mL/min Estimated GFR (MDRD) 58 (>60) mL/min BUN/Creatinine Ratio 17.5 (14-18) Glucose 114 (83-115) mg/dL Uric Acid 6.3 (3.5-7.2) mg/dL Calcium 8.3 L (8.5-10.1) mg/dL Magnesium 1.6 L (1.8-2.4) mg/dl Total Bilirubin 0.5 (0.2-1.0) mg/dL AST 26 (15-37) U/L ALT 22 (16-63) U/L Alkaline Phosphatase 136 H (46-116) U/L Troponin I < 0.017 (0.00-0.056) ng/mL C-Reactive Protein 1.9 H* (<1.0) mg/dL NT-Pro-B Natriuret Pep (0-450) pg/mL Total Protein 6.2 L (6.4-8.2) g/dl Albumin 3.0 L (3.4-5.0) g/dl Globulin 3.2 gm/dL Albumin/Globulin Ratio 0.9 L (1-2) 11/23/19 11/23/19 Range/Units 09:17 09:17 WBC (4.23-9.07) K/mm3 RBC (4.63-6.08) M/mm3 Hgb (13.7-17.5) gm/dl Hct (40.1-51.0) % MCV (79.0-92.2) fl MCH (25.7-32.2) pg MCHC (32.2-35.5) g/dl RDW Std Deviation (35.1-43.9) fL Plt Count (163-337) K/mm3 MPV (9.4-12.3) fl Neut % (Auto) (34.0-67.9) % Lymph % (Auto) (21.8-53.1) % Elbert % (Auto) (5.3-12.2) % Eos % (Auto) (0.8-7.0) Baso % (Auto) (0.1-1.2) % Neut # (Auto) (1.78-5.38) K/mm3 Lymph # (Auto) (1.32-3.57) K/mm3 Elbert # (Auto) (0.30-0.82) K/mm3 Eos # (Auto) (0.04-0.54) K/mm3 Baso # (Auto) (0.01-0.08) K/mm3 Manual Slide Review ESR 27 H (0-15) mm/hr PT (9.7-12.0) SECONDS INR APTT (22-31) SECONDS Sodium (136-145) mEq/L Potassium (3.5-5.1) mEq/L Chloride (98-107) mEq/L Carbon Dioxide (21-32) mEq/L Anion Gap (5-15) BUN (7-18) mg/dL Creatinine (0.7-1.3) mg/dL Est Cr Clr Drug Dosing mL/min Estimated GFR (MDRD) (>60) mL/min BUN/Creatinine Ratio (14-18) Glucose (83-115) mg/dL Uric Acid (3.5-7.2) mg/dL Calcium (8.5-10.1) mg/dL Magnesium (1.8-2.4) mg/dl Total Bilirubin (0.2-1.0) mg/dL AST (15-37) U/L ALT (16-63) U/L Alkaline Phosphatase (46-116) U/L Troponin I (0.00-0.056) ng/mL C-Reactive Protein (<1.0) mg/dL NT-Pro-B Natriuret Pep 398 (0-450) pg/mL Total Protein (6.4-8.2) g/dl Albumin (3.4-5.0) g/dl Globulin gm/dL Albumin/Globulin Ratio (1-2) Result Diagrams: 11/23/19 09:17 11/23/19 09:17 Sepsis Event Note - Evaluation Sepsis Screening Result: No Definite Risk - Focused Exam Vital Signs: Vital Signs Temp Pulse Resp BP Pulse Ox 11/23/19 08:18 97.2 F 88 18 129/88 98 Date Exam was Performed: 11/23/19 Time Exam was Performed: 15:46 - Problem List (1) Generalized weakness SNOMED Code(s): 08292008 ICD Code: R53.1 - WEAKNESS Status: Acute Priority: High Current Visit: Yes (2) Hyponatremia SNOMED Code(s): 33367687 ICD Code: E87.1 - HYPO-OSMOLALITY AND HYPONATREMIA Status: Acute Pr iority: High Current Visit: Yes (3) Metastatic cancer to lung SNOMED Code(s): 99090552 ICD Code: C78.00 - SECONDARY MALIGNANT NEOPLASM OF UNSPECIFIED LUNG Status: Chronic Priority: High Current Visit: Yes Qualifiers: Laterality: unspecified laterality Qualified Code(s): C78.00 - Secondary malignant neoplasm of unspecified lung (4) Neoplasm of colon, 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 SNOMED Code(s): 65287408, 082963917 ICD Code: D01.0 - CARCINOMA IN SITU OF COLON Status: Chronic Priority: High Current Visit: Yes (5) Hypertension SNOMED Code(s): 94078798 ICD Code: I10 - ESSENTIAL (PRIMARY) HYPERTENSION Status: Chronic Priority: Medium Current Visit: No Qualifiers: Hypertension type: essential hypertension Qualified Code(s): I10 - Essential (primary) hypertension (6) Volume depletion SNOMED Code(s): 495131121 ICD Code: E86.9 - VOLUME DEPLETION, UNSPECIFIED Status: Acute Current Visit: Yes (7) Glaucoma SNOMED Code(s): 98200009 ICD Code: H40.9 - UNSPECIFIED GLAUCOMA Status: Chronic Priority: Low Current Visit: No Qualifiers: Glaucoma type: unspecified Laterality: unspecified laterality Qualified Code(s): H40.9 - Unspecified glaucoma (8) Macular degeneration SNOMED Code(s): 820577545 ICD Code: H35.30 - UNSPECIFIED MACULAR DEGENERATION Status: Chronic Priority: Low Current Visit: No Qualifiers: Macular degeneration type: unspecified type Eye laterality: unspecified Qualified Code(s): H35.30 - Unspecified macular degeneration (9) COPD (chronic obstructive pulmonary disease) SNOMED Code(s): 27102701 ICD Code: J44.9 - CHRONIC OBSTRUCTIVE PULMONARY DISEASE, UNSPECIFIED Status: Chronic Priority: Medium Current Visit: Yes Qualifiers: COPD type: unspecified COPD Qualified Code(s): J44.9 - Chronic obstructive pulmonary disease, unspecified (10) Chronic dyspnea SNOMED Code(s): 171708238, 148499193 ICD Code: R06.00 - DYSPNEA, UNSPECIFIED Status: Chronic Priority: High Current Visit: Yes (11) Asthma SNOMED Code(s): 384201247 ICD Code: J45.909 - UNSPECIFIED ASTHMA, UNCOMPLICATED Status: Chronic Priority: Medium Current Visit: No Qualifiers: Asthma severity: unspecified severity Asthma persistence: unspecified Asthma complication type: unspecified Qualified Code(s): J45.909 - Unspecified asthma, uncomplicated (12) GERD (gastroesophageal reflux disease) SNOMED Code(s): 233491370 ICD Code: K21.9 - GASTRO-ESOPHAGEAL REFLUX DISEASE WITHOUT ESOPHAGITIS Status: Chronic Priority: Medium Current Visit: No Qualifiers: Esophagitis presence: with esophagitis Qualified Code(s): K21.0 - Gastro- esophageal reflux disease with esophagitis (13) History of small bowel obstruction SNOMED Code(s): 676054144538354 ICD Code: Z87.19 - PERSONAL HISTORY OF OTHER DISEASES OF THE DIGESTIVE SYSTEM Status: Chronic Priority: Low Current Visit: No (14) History of right nephrectomy SNOMED Code(s): 55801686376974 ICD Code: Z90.5 - ACQUIRED ABSENCE OF KIDNEY Status: Chronic Priority: Medium Current Visit: No (15) Arthritis SNOMED Code(s): 6045940 ICD Code: M19.90 - UNSPECIFIED OSTEOARTHRITIS, UNSPECIFIED SITE Status: Chronic Priority: Low Current Visit: No (16) Dupuytren contracture SNOMED Code(s): 013411171 ICD Code: M72.0 - PALMAR FASCIAL FIBROMATOSIS [DUPUYTREN] Status: Chronic Priority: Low Current Visit: No (17) History of TIA (transient ischemic attack) SNOMED Code(s): 960654489 ICD Code: Z86.73 - PRSNL HX OF TIA (TIA), AND CEREB INFRC W/O RESID DEFICITS Status: Chronic Priority: Low Current Visit: No (18) Psoriasis SNOMED Code(s): 7434201 ICD Code: L40.9 - PSORIASIS, UNSPECIFIED Status: Chronic Priority: Low Current Visit: No (19) Port-A-Cath in place SNOMED Code(s): 460752722 ICD Code: Z95.828 - PRESENCE OF OTHER VASCULAR IMPLANTS AND GRAFTS Status: Chronic Priority: Medium Current Visit: Yes (20) Esophageal stricture SNOMED Code(s): 49762147 ICD Code: K22.2 - ESOPHAGEAL OBSTRUCTION Status: Chronic Priority: Medium Current Visit: No (21) CKD (chronic kidney disease) stage 3, GFR 30-59 ml/min SNOMED Code(s): 104059437 ICD Code: N18.3 - CHRONIC KIDNEY DISEASE, STAGE 3 (MODERATE) Status: Chronic Priority: Medium Current Visit: Yes (22) Hypomagnesemia SNOMED Code(s): 845976465 ICD Code: E83.42 - HYPOMAGNESEMIA Status: Acute Current Visit: Yes (23) Weight loss SNOMED Code(s): 18380763, 487933440 ICD Code: R63.4 - ABNORMAL WEIGHT LOSS Status: Acute Priority: Medium Current Visit: Yes (24) Acute dyspnea SNOMED Code(s): 466350081, 078389991 ICD Code: R06.00 - DYSPNEA, UNSPECIFIED Status: Acute Priority: High Current Visit: Yes Problem List Initiated/Reviewed/Updated: Yes Orders Last 24hrs: Active Orders 24 hr Category Date Time Status Patient Status [ADT] Routine ADT 11/23/19 12:25 Ordered Cardiac Monitoring [RC] CONTINUOUS Care 11/23/19 12:26 Ordered EKG Documentation Completion [RC] STAT Care 11/23/19 08:36 Active Height and Weight [RC] DAILY Care 11/23/19 12:26 Ordered Intake and Output [RC] QSHIFT Care 11/23/19 12:26 Ordered Oxygen Therapy [RC] PRN Care 11/23/19 12:22 Active Pulse Oximetry [RC] PRN Care 11/23/19 12:26 Ordered Up With Assistance [RC] ASDIRECTED Care 11/23/19 12:26 Ordered VTE/DVT Education [RC] PER UNIT ROUTINE Care 11/23/19 12:22 Active VTE/DVT Education [RC] PER UNIT ROUTINE Care 11/23/19 12:26 Ordered Vital Signs [RC] Q4H Care 11/23/19 12:22 Active Consult to Case Management/Painter And Decorator [CONS] Cons 11/23/19 12:26 Ordered Routine Consult to Spiritual Care [CONS] Routine Cons 11/23/19 12:26 Ordered OT Evaluation and Treatment [CONS] Routine Cons 11/23/19 12:26 Ordered PT Evaluation and Treatment [CONS] Routine Cons 11/23/19 12:26 Ordered Regular Diet [DIET] Diet 11/23/19 Dinner Ordered OSMOLALITY,SERUM [CHEM] Stat Lab 11/23/19 11:40 Ordered OSMOLALITY,URINE [URCHEM] Stat Lab 11/23/19 12:21 Ordered SODIUM,URINE RANDOM [URCHEM] Stat Lab 11/23/19 12:18 Ordered Acetaminophen [Tylenol] Med 11/23/19 12:26 Ordered 650 mg PO Q4H PRN Ondansetron [Zofran] Med 11/23/19 12:26 Ordered 4 mg IV Q6H PRN Sodium Chloride 0.9% [Normal Saline] 1,000 ml Med 11/23/19 08:45 Active IV ASDIRECTED Medication Orders Sodium Chloride (Normal Saline) 1,000 mls @ 50 mls/hr IV ASDIRECTED SHANNON Last Admin: 11/23/19 09:27 Dose: 50 mls/hr Documented by: MADI Assessment/Plan Comment:: Generalized weakness Hyponatremia Metastatic cancer to lung Neoplasm of colon, 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 Loredo is monitoring No leukocytosis Sodium 123 BUN 21 Creatinine 1.2 GFR 58 Anion Gap 15.5 Troponin and BNP WNL Serum osmolality 262 (likely dilutional hyponatremia) Port accessed in ED Magnesium 1.6 PLAN -IV fluids as directed -Urine osmolality and sodium ordered -Re-check BNP tonight -AM labs -Hold home Lasix -PT/OT -CM/SW consult -Supplement magnesium -AM cortisol and TSH -Will check mycoplasma and strep pneumonia given worsening dyspnea - likely neoplasm related -Droplet Isolation Esophageal stricture GERD (gastroesophageal reflux disease) History of small bowel obstruction Weight loss History of multiple ED visits for esophageal and bowel related cancers Known lower esophageal stricture Has been on soft diet at home PLAN - Continue soft diet here - Certified Orthotist/Pedorthist consult for weight loss and help with meal choices Glaucoma Macular degeneration Hypertension Arthritis Dupuytren contracture History of TIA (transient ischemic attack) Psoriasis No current concerns Home medications reviewed PLAN -Continue home medications as directed -Monitor DVT Prophylaxis: Home BID ASA GI Prophylaxis: Not indicated Code status: CPR only PCP: Dr. Caldera Oncologist: Dr. Loredo Disposition: Patient will be admitted observation status with telemetry to the floor for management of hyponatremia and volume depletion. Magnesium will also be supplemented. Overall prognosis is poor given patients significant metastatic disease, weight loss, and overall frail health. - Mortality Measure Prognosis:: Poor
[2019-11-23] MEDS ORDERED: Magnesium Sulfate/Water 2 GM in Premix Bag 1 BAG IV ONE (14:39)
[2019-11-23] MEDS ORDERED: Albuterol/Ipratropium 3.0-0.5 MG/3 ML Neb Soln NEB PRN (14:50)
[2019-11-23] MEDS ORDERED: Aluminum Hydroxide/Magnesium Hydroxide/Simethicone Susp 30 ML Cup PO PRN (20:47)
[2019-11-23] MEDS: Aspirin 325 MG Tab.EC PO SCH (22:04)
[2019-11-23] MEDS ORDERED: Sodium Chloride 0.9% 1,000 ML IV SCH (23:30)
[2019-11-24] MEDS: Aspirin 325 MG Tab.EC PO SCH ×2 (08:42→20:31)
[2019-11-24] MEDS: Metoprolol Succinate 50 MG Tab.ER PO SCH (08:43)
[2019-11-24] MEDS: Enoxaparin 40 MG/0.4 ML Syringe SUBCUT SCH (08:43)
[2019-11-24] MEDS ORDERED: Sodium Chloride 3% 500 ML IV SCH ×2 (09:00→09:15)
--- NOTE | 2019-11-24 09:51 | PCM.PN ---
- General Info Date of Service: 11/24/19 Admission Dx/Problem (Free Text): Admission Diagnosis/Problem Admission Diagnosis/Problem Hyponatremia Functional Status: Reports: Pain Controlled, Tolerating Diet, Ambulating, Urinating, Incentive Spirometry. Denies: New Symptoms - Review of Systems General: Reports: No Symptoms, Weakness. Denies: Fever, Fatigue, Malaise, Chills HEENT: Reports: No Symptoms. Denies: Headaches, Sore Throat Pulmonary: Reports: Cough, Sputum. Denies: Shortness of Breath, Pleuritic Chest Pain, Wheezing Cardiovascular: Reports: Dyspnea on Exertion. Denies: Chest Pain, Palpitations, Edema Gastrointestinal: Reports: No Symptoms. Denies: Abdominal Pain, Constipation, Diarrhea, Nausea, Vomiting Genitourinary: Reports: No Symptoms. Denies: Pain Musculoskeletal: Reports: No Symptoms Skin: Reports: No Symptoms. Denies: Cyanosis Neurological: Reports: No Symptoms. Denies: Confusion, Difficulty Walking, Gait Disturbance Psychiatric: Reports: No Symptoms - Patient Data Vitals - Most Recent: Last Vital Signs Temp 97.2 F 11/24/19 07:49 Pulse 69 11/24/19 08:43 Resp 18 11/24/19 07:49 BP 143/70 H 11/24/19 08:43 Pulse Ox 97 11/24/19 07:49 Weight - Most Recent: 176 lb 1.6 oz I&O - Last 24 Hours: Intake & Output 11/23/19 11/24/19 11/24/19 22:59 06:59 14:59 Intake Total 1670 1461 Output Total 450 Balance 1670 1011 Lab Results Last 24 Hours: Laboratory Results - last 24 hr 11/23/19 11/23/19 11/23/19 Range/Units 09:17 09:17 09:17 WBC (4.23-9.07) K/mm3 RBC (4.63-6.08) M/mm3 Hgb (13.7-17.5) gm/dl Hct (40.1-51.0) % MCV (79.0-92.2) fl MCH (25.7-32.2) pg MCHC (32.2-35.5) g/dl RDW Std Deviation (35.1-43.9) fL Plt Count (163-337) K/mm3 MPV (9.4-12.3) fl Neut % (Auto) (34.0-67.9) % Lymph % (Auto) (21.8-53.1) % [place] % (Auto) (5.3-12.2) % Eos % (Auto) (0.8-7.0) Baso % (Auto) (0.1-1.2) % Neut # (Auto) (1.78-5.38) K/mm3 Lymph # (Auto) (1.32-3.57) K/mm3 [place] # (Auto) (0.30-0.82) K/mm3 Eos # (Auto) (0.04-0.54) K/mm3 Baso # (Auto) (0.01-0.08) K/mm3 Manual Slide Review Abnormal smear ESR (0-15) mm/hr PT 10.8 (9.7-12.0) SECONDS INR 0.99 APTT 47 H (22-31) SECONDS Sodium 123 L D (136-145) mEq/L Potassium 4.5 (3.5-5.1) mEq/L Chloride 91 L (98-107) mEq/L Carbon Dioxide 21 (21-32) mEq/L Anion Gap 15.5 H (5-15) BUN 21 H (7-18) mg/dL Creatinine 1.2 (0.7-1.3) mg/dL Est Cr Clr Drug Dosing 47.50 mL/min Estimated GFR (MDRD) 58 (>60) mL/min BUN/Creatinine Ratio 17.5 (14-18) Glucose 114 (83-115) mg/dL Serum Osmolality (280-300) mosm/kg Uric Acid 6.3 (3.5-7.2) mg/dL Calcium 8.3 L (8.5-10.1) mg/dL Magnesium 1.6 L (1.8-2.4) mg/dl Total Bilirubin 0.5 (0.2-1.0) mg/dL AST 26 (15-37) U/L ALT 22 (16-63) U/L Alkaline Phosphatase 136 H (46-116) U/L Troponin I < 0.017 (0.00-0.056) ng/mL C-Reactive Protein 1.9 H* (<1.0) mg/dL NT-Pro-B Natriuret Pep (0-450) pg/mL Total Protein 6.2 L (6.4-8.2) g/dl Albumin 3.0 L (3.4-5.0) g/dl Globulin 3.2 gm/dL Albumin/Globulin Ratio 0.9 L (1-2) TSH 3rd Generation (0.358-3.74) uIU/mL Urine Osmolality (400-1100) mosm/kg Ur Random Sodium (40-220) mEq/L COVID-19 (RAJ) (NEGATIVE) Mycoplasma pneumon IgM (NEGATIVE) 11/23/19 11/23/19 11/23/19 Range/Units 09:17 09:17 09:17 WBC (4.23-9.07) K/mm3 RBC (4.63-6.08) M/mm3 Hgb (13.7-17.5) gm/dl Hct (40.1-51.0) % MCV (79.0-92.2) fl MCH (25.7-32.2) pg MCHC (32.2-35.5) g/dl RDW Std Deviation (35.1-43.9) fL Plt Count (163-337) K/mm3 MPV (9.4-12.3) fl Neut % (Auto) (34.0-67.9) % Lymph % (Auto) (21.8-53.1) % [place] % (Auto) (5.3-12.2) % Eos % (Auto) (0.8-7.0) Baso % (Auto) (0.1-1.2) % Neut # (Auto) (1.78-5.38) K/mm3 Lymph # (Auto) (1.32-3.57) K/mm3 [place] # (Auto) (0.30-0.82) K/mm3 Eos # (Auto) (0.04-0.54) K/mm3 Baso # (Auto) (0.01-0.08) K/mm3 Manual Slide Review ESR 27 H (0-15) mm/hr PT (9.7-12.0) SECONDS INR APTT (22-31) SECONDS Sodium (136-145) mEq/L Potassium (3.5-5.1) mEq/L Chloride (98-107) mEq/L Carbon Dioxide (21-32) mEq/L Anion Gap (5-15) BUN (7-18) mg/dL Creatinine (0.7-1.3) mg/dL Est Cr Clr Drug Dosing mL/min Estimated GFR (MDRD) (>60) mL/min BUN/Creatinine Ratio (14-18) Glucose (83-115) mg/dL Serum Osmolality 262 L (280-300) mosm/kg Uric Acid (3.5-7.2) mg/dL Calcium (8.5-10.1) mg/dL Magnesium (1.8-2.4) mg/dl Total Bilirubin (0.2-1.0) mg/dL AST (15-37) U/L ALT (16-63) U/L Alkaline Phosphatase (46-116) U/L Troponin I (0.00-0.056) ng/mL C-Reactive Protein (<1.0) mg/dL NT-Pro-B Natriuret Pep 398 (0-450) pg/mL Total Protein (6.4-8.2) g/dl Albumin (3.4-5.0) g/dl Globulin gm/dL Albumin/Globulin Ratio (1-2) TSH 3rd Generation (0.358-3.74) uIU/mL Urine Osmolality (400-1100) mosm/kg Ur Random Sodium (40-220) mEq/L COVID-19 (RAJ) (NEGATIVE) Mycoplasma pneumon IgM (NEGATIVE) 11/23/19 11/23/19 11/23/19 Range/Units 09:17 13:22 13:22 WBC (4.23-9.07) K/mm3 RBC (4.63-6.08) M/mm3 Hgb (13.7-17.5) gm/dl Hct (40.1-51.0) % MCV (79.0-92.2) fl MCH (25.7-32.2) pg MCHC (32.2-35.5) g/dl RDW Std Deviation (35.1-43.9) fL Plt Count (163-337) K/mm3 MPV (9.4-12.3) fl Neut % (Auto) (34.0-67.9) % Lymph % (Auto) (21.8-53.1) % [place] % (Auto) (5.3-12.2) % Eos % (Auto) (0.8-7.0) Baso % (Auto) (0.1-1.2) % Neut # (Auto) (1.78-5.38) K/mm3 Lymph # (Auto) (1.32-3.57) K/mm3 [place] # (Auto) (0.30-0.82) K/mm3 Eos # (Auto) (0.04-0.54) K/mm3 Baso # (Auto) (0.01-0.08) K/mm3 Manual Slide Review ESR (0-15) mm/hr PT (9.7-12.0) SECONDS INR APTT (22-31) SECONDS Sodium (136-145) mEq/L Potassium (3.5-5.1) mEq/L Chloride (98-107) mEq/L Carbon Dioxide (21-32) mEq/L Anion Gap (5-15) BUN (7-18) mg/dL Creatinine (0.7-1.3) mg/dL Est Cr Clr Drug Dosing mL/min Estimated GFR (MDRD) (>60) mL/min BUN/Creatinine Ratio (14-18) Glucose (83-115) mg/dL Serum Osmolality (280-300) mosm/kg Uric Acid (3.5-7.2) mg/dL Calcium (8.5-10.1) mg/dL Magnesium (1.8-2.4) mg/dl Total Bilirubin (0.2-1.0) mg/dL AST (15-37) U/L ALT (16-63) U/L Alkaline Phosphatase (46-116) U/L Troponin I (0.00-0.056) ng/mL C-Reactive Protein (<1.0) mg/dL NT-Pro-B Natriuret Pep (0-450) pg/mL Total Protein (6.4-8.2) g/dl Albumin (3.4-5.0) g/dl Globulin gm/dL Albumin/Globulin Ratio (1-2) TSH 3rd Generation (0.358-3.74) uIU/mL Urine Osmolality 397 L (400-1100) mosm/kg Ur Random Sodium 78 (40-220) mEq/L COVID-19 (RAJ) (NEGATIVE) Mycoplasma pneumon IgM Negative (NEGATIVE) 11/23/19 11/24/19 11/24/19 Range/Units 13:31 06:05 06:05 WBC 7.70 (4.23-9.07) K/mm3 RBC 4.21 L (4.63-6.08) M/mm3 Hgb 11.3 L (13.7-17.5) gm/dl Hct 34.5 L (40.1-51.0) % MCV 81.9 (79.0-92.2) fl MCH 26.8 (25.7-32.2) pg MCHC 32.8 (32.2-35.5) g/dl RDW Std Deviation 38.5 (35.1-43.9) fL Plt Count 216 (163-337) K/mm3 MPV 10.3 (9.4-12.3) fl Neut % (Auto) 68.0 H (34.0-67.9) % Lymph % (Auto) 14.2 L (21.8-53.1) % [place] % (Auto) 10.9 (5.3-12.2) % Eos % (Auto) 6.5 (0.8-7.0) Baso % (Auto) 0.1 (0.1-1.2) % Neut # (Auto) 5.24 (1.78-5.38) K/mm3 Lymph # (Auto) 1.09 L (1.32-3.57) K/mm3 [place] # (Auto) 0.84 H (0.30-0.82) K/mm3 Eos # (Auto) 0.50 (0.04-0.54) K/mm3 Baso # (Auto) 0.01 (0.01-0.08) K/mm3 Manual Slide Review ESR (0-15) mm/hr PT (9.7-12.0) SECONDS INR APTT (22-31) SECONDS Sodium 125 L (136-145) mEq/L Potassium 4.8 (3.5-5.1) mEq/L Chloride 94 L (98-107) mEq/L Carbon Dioxide 24 (21-32) mEq/L Anion Gap 11.8 (5-15) BUN 19 H (7-18) mg/dL Creatinine 1.1 (0.7-1.3) mg/dL Est Cr Clr Drug Dosing 51.82 mL/min Estimated GFR (MDRD) > 60 (>60) mL/min BUN/Creatinine Ratio 17.3 (14-18) Glucose 85 (83-115) mg/dL Serum Osmolality (280-300) mosm/kg Uric Acid (3.5-7.2) mg/dL Calcium 8.2 L (8.5-10.1) mg/dL Magnesium 2.2 (1.8-2.4) mg/dl Total Bilirubin 0.5 (0.2-1.0) mg/dL AST 25 (15-37) U/L ALT 26 (16-63) U/L Alkaline Phosphatase 142 H (46-116) U/L Troponin I (0.00-0.056) ng/mL C-Reactive Protein (<1.0) mg/dL NT-Pro-B Natriuret Pep (0-450) pg/mL Total Protein 6.1 L (6.4-8.2) g/dl Albumin 2.9 L (3.4-5.0) g/dl Globulin 3.2 gm/dL Albumin/Globulin Ratio 0.9 L (1-2) TSH 3rd Generation 2.784 (0.358-3.74) uIU/mL Urine Osmolality (400-1100) mosm/kg Ur Random Sodium (40-220) mEq/L COVID-19 (RAJ) Negative (NEGATIVE) Mycoplasma pneumon IgM (NEGATIVE) Med Orders - Current: Current Medications Acetaminophen (Tylenol) 650 mg PO Q4H PRN PRN Reason: Pain (Mild 1-3)/fever Al Hydroxide/Mg Hydroxide (Mag-Al Plus) 30 ml PO Q8H PRN PRN Reason: Heartburn Last Admin: 11/23/19 22:03 Dose: 30 ml Documented by: Albuterol/Ipratropium (Duoneb 3.0-0.5 Mg/3 Ml) 3 ml NEB Q6HRRT PRN PRN Reason: wheezing/SOB/cough Aspirin (Ecotrin) 325 mg PO BID [facility] Last Admin: 11/24/19 08:42 Dose: 325 mg Documented by: Enoxaparin Sodium (Lovenox) 40 mg SUBCUT DAILY [facility] Last Admin: 11/24/19 08:43 Dose: 40 mg Documented by: Sodium Chloride (Sodium Chloride 3%) 500 mls @ 53 mls/hr IV ASDIRECTED [facility] Metoprolol Succinate (Toprol Xl) 50 mg PO DAILY [facility] Last Admin: 11/24/19 08:43 Dose: 50 mg Documented by: Ondansetron HCl (Zofran) 4 mg IV Q6H PRN PRN Reason: Nausea/Vomiting Senna/Docusate Sodium (Senna Plus) 1 tab PO DAILY [facility] Last Admin: 11/24/19 08:43 Dose: 1 tab Documented by: Discontinued Medications Sodium Chloride (Normal Saline) 1,000 mls @ 100 mls/hr IV ASDIRECTED [facility] Last Admin: 11/23/19 23:04 Dose: 50 mls/hr Documented by: Magnesium Sulfate 2 gm/ Premix 50 mls @ 25 mls/hr IV ONETIME ONE Stop: 11/23/19 16:38 Last Admin: 11/23/19 15:06 Dose: 25 mls/hr Documented by: Sodium Chloride (Normal Saline) 1,000 mls @ 50 mls/hr IV ASDIRECTED [facility] Sodium Chloride (Sodium Chloride 3%) 500 mls @ 53 mls/hr IV ASDIRECTED [facility] Stop: 11/24/19 09:01 - Exam Quality Assessment: DVT Prophylaxis. No: Supplemental Oxygen, Urine Catheter General: Alert, Oriented, Cooperative, No Acute Distress HEENT: Pupils Equal, Pupils Reactive, Mucous Membr. Moist/[place] Neck: Supple, Trachea Midline Lungs: Clear to Auscultation, Normal Respiratory Effort Cardiovascular: Regular Rate, Regular Rhythm GI/Abdominal Exam: Normal Bowel Sounds, Soft, Non-Tender, No Distention (Male) Exam: Deferred Back Exam: Normal Inspection, Full Range of Motion Extremities: Normal Inspection, Normal Range of Motion, Non-Tender, No Pedal Edema Peripheral Pulses: 2+: Radial (L), Radial (R), Dorsalis Pedis (L), Dorsalis Pedis (R) Skin: Warm, Dry, Intact Neurological: No New Focal Deficit Psy/Mental Status: Alert, Normal Affect, Normal Mood Sepsis Event Note - Evaluation Sepsis Screening Result: No Definite Risk - Focused Exam Vital Signs: Vital Signs Temp Pulse Resp BP Pulse Ox 11/24/19 08:43 69 143/70 H 11/24/19 07:49 97.2 F 69 18 143/70 H 97 11/24/19 05:18 97.9 F 67 18 115/74 97 11/24/19 02:12 97.7 F 66 18 137/71 97 Date Exam was Performed: 11/24/19 Time Exam was Performed: 14:23 - Problem List & Annotations (1) Generalized weakness SNOMED Code(s): 06808412 Code(s): R53.1 - WEAKNESS Status: Acute Priority: High Current Visit: Yes (2) Hyponatremia SNOMED Code(s): 00988918 Code(s): E87.1 - HYPO-OSMOLALITY AND HYPONATREMIA Status: Acute Priority: High Current Visit: Yes (3) Metastatic cancer to lung SNOMED Code(s): 87764762 Code(s): C78.00 - SECONDARY MALIGNANT NEOPLASM OF UNSPECIFIED LUNG Status: Chronic Priority: High Current Visit: Yes Qualifiers: Laterality: unspecified laterality Qualified Code(s): C78.00 - Secondary malignant neoplasm of unspecified lung (4) Neoplasm of colon, 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 SNOMED Code(s): 72094323, 765383371 Code(s): D01.0 - CARCINOMA IN SITU OF COLON Status: Chronic Priority: High Current Visit: Yes (5) Hypertension SNOMED Code(s): 88277050 Code(s): I10 - ESSENTIAL (PRIMARY) HYPERTENSION Status: Chronic Priority: Medium Current Visit: No Qualifiers: Hypertension type: essential hypertension Qualified Code(s): I10 - Essential (primary) hypertension (6) Volume depletion SNOMED Code(s): 876054443 Code(s): E86.9 - VOLUME DEPLETION, UNSPECIFIED Status: Acute Current Visit: Yes (7) Glaucoma SNOMED Code(s): 05596997 Code(s): H40.9 - UNSPECIFIED GLAUCOMA Status: Chronic Priority: Low Current Visit: No Qualifiers: Glaucoma type: unspecified Laterality: unspecified laterality Qualified Code(s): H40.9 - Unspecified glaucoma (8) Macular degeneration SNOMED Code(s): 072780879 Code(s): H35.30 - UNSPECIFIED MACULAR DEGENERATION Status: Chronic Priority: Low Current Visit: No Qualifiers: Macular degeneration type: unspecified type Eye laterality: unspecified Qualified Code(s): H35.30 - Unspecified macular degeneration (9) COPD (chronic obstructive pulmonary disease) SNOMED Code(s): 03219749 Code(s): J44.9 - CHRONIC OBSTRUCTIVE PULMONARY DISEASE, UNSPECIFIED Status: Chronic Priority: Medium Current Visit: Yes Qualifiers: COPD type: unspecified COPD Qualified Code(s): J44.9 - Chronic obstructive pulmonary disease, unspecified (10) Chronic dyspnea SNOMED Code(s): 014329484, 469619192 Code(s): R06.00 - DYSPNEA, UNSPECIFIED Status: Chronic Priority: High C urrent Visit: Yes (11) Asthma SNOMED Code(s): 696029705 Code(s): J45.909 - UNSPECIFIED ASTHMA, UNCOMPLICATED Status: Chronic Priority: Medium Current Visit: No Qualifiers: Asthma severity: unspecified severity Asthma persistence: unspecified Asthma complication type: unspecified Qualified Code(s): J45.909 - Unspecified asthma, uncomplicated (12) GERD (gastroesophageal reflux disease) SNOMED Code(s): 165725244 Code(s): K21.9 - GASTRO-ESOPHAGEAL REFLUX DISEASE WITHOUT ESOPHAGITIS Status: Chronic Priority: Medium Current Visit: No Qualifiers: Esophagitis presence: with esophagitis Qualified Code(s): K21.0 - Gastro- esophageal reflux disease with esophagitis (13) History of small bowel obstruction SNOMED Code(s): 216828742482967 Code(s): Z87.19 - PERSONAL HISTORY OF OTHER DISEASES OF THE DIGESTIVE SYSTEM Status: Chronic Priority: Low Current Visit: No (14) History of right nephrectomy SNOMED Code(s): 68080511929782 Code(s): Z90.5 - ACQUIRED ABSENCE OF KIDNEY Status: Chronic Priority: Medium Current Visit: No (15) Arthritis SNOMED Code(s): 0429342 Code(s): M19.90 - UNSPECIFIED OSTEOARTHRITIS, UNSPECIFIED SITE Status: Chronic Priority: Low Current Visit: No (16) Dupuytren contracture SNOMED Code(s): 836745934 Code(s): M72.0 - PALMAR FASCIAL FIBROMATOSIS [DUPUYTREN] Status: Chronic Priority: Low Current Visit: No (17) History of TIA (transient ischemic attack) SNOMED Code(s): 877285806 Code(s): Z86.73 - PRSNL HX OF TIA (TIA), AND CEREB INFRC W/O RESID DEFICITS Status: Chronic Priority: Low Current Visit: No (18) Psoriasis SNOMED Code(s): 4160254 Code(s): L40.9 - PSORIASIS, UNSPECIFIED Status: Chronic Priority: Low Current Visit: No (19) Port-A-Cath in place SNOMED Code(s): 270474700 Code(s): Z95.828 - PRESENCE OF OTHER VASCULAR IMPLANTS AND GRAFTS Status: Chronic Priority: Medium Current Visit: Yes (20) Esophageal stricture SNOMED Code(s): 80148496 Code(s): K22.2 - ESOPHAGEAL OBSTRUCTION Status: Chronic Priority: Medium Current Visit: No (21) CKD (chronic kidney disease) stage 3, GFR 30-59 ml/min SNOMED Code(s): 200871402 Code(s): N18.3 - CHRONIC KIDNEY DISEASE, STAGE 3 (MODERATE) Status: Chronic Priority: Medium Current Visit: Yes (22) Hypomagnesemia SNOMED Code(s): 622748715 Code(s): E83.42 - HYPOMAGNESEMIA Status: Acute Current Visit: Yes (23) Weight loss SNOMED Code(s): 18503543, 192599634 Code(s): R63.4 - ABNORMAL WEIGHT LOSS Status: Acute Priority: Medium Current Visit: Yes (24) Acute dyspnea SNOMED Code(s): 633553749, 785057143 Code(s): R06.00 - DYSPNEA, UNSPECIFIED Status: Acute Priority: High Cu rrent Visit: Yes - Problem List Review Problem List Initiated/Reviewed/Updated: Yes - My Orders Last 24 Hours: My Active Orders 11/23/19 12:22 Oxygen Therapy [RC] PRN VTE/DVT Education [RC] BID Vital Signs [RC] Q4HR 11/23/19 12:25 Patient Status [ADT] Routine 11/23/19 12:26 Height and Weight [RC] 04 Pulse Oximetry [RC] PRN Up With Assistance [RC] ASDIRECTED Consult to Case Management/Apartment Property Manager [CONS] Routine Consult to Spiritual Care [CONS] Routine OT Evaluation and Treatment [CONS] Routine PT Evaluation and Treatment [CONS] Routine Acetaminophen [Tylenol] 650 mg PO Q4H PRN Ondansetron [Zofran] 4 mg IV Q6H PRN 11/23/19 12:29 Consult to [employer]ke Lining [employer]isher As[employer] [CONS] Routine 11/23/19 14:50 RT Aerosol Therapy [RC] ASDIRECTED Albuterol/Ipratropium [DuoNeb 3.0-0.5 MG/3 ML] 3 ml NEB Q6HRRT PRN 11/23/19 15:22 Code Status [Resuscitation Status] Routine 11/23/19 15:31 RT Incentive Spirometry [RC] ASDIRECTED 11/23/19 15:42 STREP PNEUMONIAE ANTIGEN [MREF] Routine 11/23/19 15:46 Isolation [COMM] Routine 11/23/19 21:00 Aspirin [Ecotrin] 325 mg PO BID 11/24/19 Breakfast Soft Diet [DIET] 11/24/19 09:00 BASIC METABOLIC PANEL,BMP [CHEM] Q4H Docusate Sodium/Sennosides [Senna Plus] 1 tab PO DAILY Enoxaparin [Lovenox] 40 mg SUBCUT DAILY Metoprolol Succinate [Toprol XL] 50 mg PO DAILY 11/24/19 09:15 Sodium Chloride 3% 500 ml IV ASDIRECTED 11/24/19 13:00 BASIC METABOLIC PANEL,BMP [CHEM] Q4H 11/24/19 17:00 BASIC METABOLIC PANEL,BMP [CHEM] Q4H 11/24/19 21:00 BASIC METABOLIC PANEL,BMP [CHEM] Q4H - Plan Plan:: Generalized weakness Hyponatremia Metastatic cancer to lung Neoplasm of colon, 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 Loredo is monitoring No leukocytosis Sodium 123-->125 BUN 21-->19 Creatinine 1.2-->1.1 GFR 58--> greater than 60 Anion Gap 15.5--> 11.8 Troponin and BNP WNL Serum osmolality 262 Port accessed in ED Magnesium 1.6-->2.2 Mycoplasma negative Urine osmolality 397 Urine Sodium 78 TSH WNL PLAN -IV fluids as directed - Start 3% hypotonic today at 54mL/hr. 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 Caldera Oncologist: Dr. Loredo Disposition: Patient will be upgraded to inpatient with telemetry for management of hyponatremia and volume depletion. Magnesium will also be supplemented. Overall prognosis is poor given patients significant metastatic disease, weight loss, and overall frail health.
[2019-11-24] MEDS ORDERED: Sodium Chloride 3% 250 ML IV SCH (20:00)
[2019-11-25] MEDS: Metoprolol Succinate 50 MG Tab.ER PO SCH (08:12)
[2019-11-25] MEDS: Aspirin 325 MG Tab.EC PO SCH ×2 (08:12→20:58)
[2019-11-25] MEDS: Enoxaparin 40 MG/0.4 ML Syringe SUBCUT SCH (08:12)
[2019-11-25] MEDS: Sodium Chloride 0.9% 1,000 ML IV SCH (08:16)
--- NOTE | 2019-11-25 09:43 | PCM.PN ---
- General Info Date of Service: 11/25/19 Admission Dx/Problem (Free Text): Admission Diagnosis/Problem Admission Diagnosis/Problem Hyponatremia Subjective Update: No acute complaints Reports nausea and vomiting x1 episode last night. None since that episode Reports continued dyspnea Last BM yesterday Functional Status: Reports: Pain Controlled, Tolerating Diet, Ambulating, Urinating, Incentive Spirometry. Denies: New Symptoms - Review of Systems General: Reports: No Symptoms. Denies: Fever, Weakness, Fatigue, Malaise, Chills HEENT: Reports: No Symptoms Pulmonary: Reports: Shortness of Breath, Cough, Sputum. Denies: Pleuritic Chest Pain, Wheezing Cardiovascular: Reports: Dyspnea on Exertion. Denies: Chest Pain, Palpitations Gastrointestinal: Reports: No Symptoms. Denies: Abdominal Pain, Constipation, Diarrhea, Nausea, Vomiting Genitourinary: Reports: No Symptoms. Denies: Pain Musculoskeletal: Reports: No Symptoms Skin: Reports: No Symptoms. Denies: Cyanosis Neurological: Reports: No Symptoms. Denies: Confusion, Difficulty Walking, Weakness, Gait Disturbance Psychiatric: Reports: No Symptoms - Patient Data Vitals - Most Recent: Last Vital Signs Temp 98.1 F 11/25/19 07:17 Pulse 79 11/25/19 08:12 Resp 20 11/25/19 07:17 BP 135/75 11/25/19 08:12 Pulse Ox 96 11/25/19 07:17 Weight - Most Recent: 174 lb 6.4 oz I&O - Last 24 Hours: Intake & Output 11/24/19 11/25/19 11/25/19 22:59 06:59 14:59 Intake Total 1944 1573 Output Total 850 Balance 1944 723 Lab Results Last 24 Hours: Laboratory Results - last 24 hr 11/24/19 11/24/19 11/24/19 Range/Units 09:34 14:00 17:42 WBC (4.23-9.07) K/mm3 RBC (4.63-6.08) M/mm3 Hgb (13.7-17.5) gm/dl Hct (40.1-51.0) % MCV (79.0-92.2) fl MCH (25.7-32.2) pg MCHC (32.2-35.5) g/dl RDW Std Deviation (35.1-43.9) fL Plt Count (163-337) K/mm3 MPV (9.4-12.3) fl Neut % (Auto) (34.0-67.9) % Lymph % (Auto) (21.8-53.1) % [place] % (Auto) (5.3-12.2) % Eos % (Auto) (0.8-7.0) Baso % (Auto) (0.1-1.2) % Neut # (Auto) (1.78-5.38) K/mm3 Lymph # (Auto) (1.32-3.57) K/mm3 [place] # (Auto) (0.30-0.82) K/mm3 Eos # (Auto) (0.04-0.54) K/mm3 Baso # (Auto) (0.01-0.08) K/mm3 Manual Slide Review Sodium 123 L 125 L 126 L (136-145) mEq/L Potassium 4.9 5.0 5.1 (3.5-5.1) mEq/L Chloride 93 L 95 L 95 L (98-107) mEq/L Carbon Dioxide 23 23 21 (21-32) mEq/L Anion Gap 11.9 12.0 15.1 H (5-15) BUN 18 21 H 19 H (7-18) mg/dL Creatinine 1.1 1.1 1.0 (0.7-1.3) mg/dL Est Cr Clr Drug Dosing 51.82 51.82 57.00 mL/min Estimated GFR (MDRD) > 60 > 60 > 60 (>60) mL/min BUN/Creatinine Ratio 16.4 19.1 H 19.0 H (14-18) Glucose 103 154 H 119 H (83-115) mg/dL Calcium 8.2 L 8.1 L 8.5 (8.5-10.1) mg/dL Phosphorus (2.6-4.7) mg/dL Magnesium (1.8-2.4) mg/dl 11/25/19 11/25/19 11/25/19 Range/Units 00:20 05:06 05:06 WBC 9.77 H (4.23-9.07) K/mm3 RBC 3.89 L (4.63-6.08) M/mm3 Hgb 10.7 L (13.7-17.5) gm/dl Hct 32.4 L (40.1-51.0) % MCV 83.3 (79.0-92.2) fl MCH 27.5 (25.7-32.2) pg MCHC 33.0 (32.2-35.5) g/dl RDW Std Deviation 40.2 (35.1-43.9) fL Plt Count 208 (163-337) K/mm3 MPV 10.5 (9.4-12.3) fl Neut % (Auto) 76.3 H (34.0-67.9) % Lymph % (Auto) 9.6 L (21.8-53.1) % [place] % (Auto) 10.2 (5.3-12.2) % Eos % (Auto) 3.6 (0.8-7.0) Baso % (Auto) 0.2 (0.1-1.2) % Neut # (Auto) 7.45 H (1.78-5.38) K/mm3 Lymph # (Auto) 0.94 L (1.32-3.57) K/mm3 [place] # (Auto) 1.00 H (0.30-0.82) K/mm3 Eos # (Auto) 0.35 (0.04-0.54) K/mm3 Baso # (Auto) 0.02 (0.01-0.08) K/mm3 Manual Slide Review Abnormal smear Sodium 127 L 120 L (136-145) mEq/L Potassium 5.1 4.8 (3.5-5.1) mEq/L Chloride 98 98 (98-107) mEq/L Carbon Dioxide 21 21 (21-32) mEq/L Anion Gap 13.1 5.8 (5-15) BUN 21 H 19 H (7-18) mg/dL Creatinine 1.1 1.1 (0.7-1.3) mg/dL Est Cr Clr Drug Dosing 51.82 51.82 mL/min Estimated GFR (MDRD) > 60 > 60 (>60) mL/min BUN/Creatinine Ratio 19.1 H 17.3 (14-18) Glucose 93 91 (83-115) mg/dL Calcium 7.9 L 7.6 L (8.5-10.1) mg/dL Phosphorus 3.5 (2.6-4.7) mg/dL Magnesium 2.1 (1.8-2.4) mg/dl Kashif Results Last 24 Hours: Microbiology 11/24/19 00:40 Streptococcus pneumoniae Antigen (M - Final Urine Med Orders - Current: Current Medications Acetaminophen (Tylenol) 650 mg PO Q4H PRN PRN Reason: Pain (Mild 1-3)/fever Al Hydroxide/Mg Hydroxide (Mag-Al Plus) 30 ml PO Q8H PRN PRN Reason: Heartburn Last Admin: 11/23/19 22:03 Dose: 30 ml Documented by: Albuterol/Ipratropium (Duoneb 3.0-0.5 Mg/3 Ml) 3 ml NEB Q6HRRT PRN PRN Reason: wheezing/SOB/cough Aspirin (Ecotrin) 325 mg PO BID [facility] Last Admin: 11/25/19 08:12 Dose: 325 mg Documented by: Enoxaparin Sodium (Lovenox) 40 mg SUBCUT DAILY [facility] Last Admin: 11/25/19 08:12 Dose: 40 mg Documented by: Sodium Chloride (Normal Saline) 1,000 mls @ 50 mls[facility] Last Admin: 11/25/19 08:16 Dose: 50 mls/hr Documented by: Metoprolol Succinate (Toprol Xl) 50 mg PO DAILY [facility] Last Admin: 11/25/19 08:12 Dose: 50 mg Documented by: Ondansetron HCl (Zofran) 4 mg IV Q6H PRN PRN Reason: Nausea/Vomiting Last Admin: 11/24/19 21:09 Dose: 4 mg Documented by: Senna/Docusate Sodium (Senna Plus) 1 tab PO DAILY [facility] Last Admin: 11/25/19 08:12 Dose: 1 tab Documented by: Discontinued Medications Sodium Chloride (Normal Saline) 1,000 mls @ 100 mls/hr IV ASDIRECTED [facility] Last Admin: 11/23/19 23:04 Dose: 50 mls/hr Documented by: Magnesium Sulfate 2 gm/ Premix 50 mls @ 25 mls/hr IV ONETIME ONE Stop: 11/23/19 16:38 Last Admin: 11/23/19 15:06 Dose: 25 mls/hr Documented by: Sodium Chloride (Normal Saline) 1,000 mls @ 50 mls/hr IV ASDIRECTED [facility] Sodium Chloride (Sodium Chloride 3%) 500 mls @ 53 mls/hr IV ASDIRECTED [facility] Stop: 11/24/19 09:01 Sodium Chloride (Sodium Chloride 3%) 500 mls @ 53 mls/hr IV ASDIRECTED [facility] Stop: 11/24/19 19:00 Last Admin: 11/24/19 10:05 Dose: 53 mls/hr Documented by: Sodium Chloride (Sodium Chloride 3%) 250 mls @ 53 mls/hr IV ASDIRECTED [facility] Stop: 11/25/19 00:30 Last Admin: 11/24/19 20:33 Dose: 53 mls/hr Documented by: - Exam Quality Assessment: DVT Prophylaxis. No: Supplemental Oxygen General: Alert, Oriented, Cooperative, No Acute Distress HEENT: Pupils Equal, Pupils Reactive, Mucous Membr. Moist/[place] Neck: Supple, Trachea Midline Lungs: Clear to Auscultation, Normal Respiratory Effort Cardiovascular: Regular Rate, Regular Rhythm GI/Abdominal Exam: Normal Bowel Sounds, Soft, Non-Tender, No Distention (Male) Exam: Deferred Back Exam: Normal Inspection, Full Range of Motion Extremities: Normal Inspection, Normal Range of Motion, Non-Tender, No Pedal Edema, Normal Capillary Refill Skin: Warm, Dry, Intact Neurological: No New Focal Deficit Psy/Mental Status: Alert, Normal Affect, Normal Mood Sepsis Event Note - Evaluation Sepsis Screening Result: No Definite Risk - Focused Exam Vital Signs: Vital Signs Temp Pulse Resp BP Pulse Ox 11/25/19 08:12 79 135/75 11/25/19 07:17 98.1 F 79 20 135/75 96 11/25/19 05:07 98.1 F 88 18 111/77 98 Date Exam was Performed: 11/25/19 Time Exam was Performed: 12:03 - Problem List & Annotations (1) Generalized weakness SNOMED Code(s): 59374889 Code(s): R53.1 - WEAKNESS Status: Acute Priority: High Current Visit: Yes (2) Hyponatremia SNOMED Code(s): 55183753 Code(s): E87.1 - HYPO-OSMOLALITY AND HYPONATREMIA Status: Acute Priority: High Current Visit: Yes (3) Metastatic cancer to lung SNOMED Code(s): 23551685 Code(s): C78.00 - SECONDARY MALIGNANT NEOPLASM OF UNSPECIFIED LUNG Status: Chronic Priority: High Current Visit: Yes Qualifiers: Laterality: unspecified laterality Qualified Code(s): C78.00 - Secondary malignant neoplasm of unspecified lung (4) Neoplasm of colon, 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 SNOMED Code(s): 66151230, 820120957 Code(s): D01.0 - CARCINOMA IN SITU OF COLON Status: Chronic Priority: High Current Visit: Yes (5) Hypertension SNOMED Code(s): 80177121 Code(s): I10 - ESSENTIAL (PRIMARY) HYPERTENSION Status: Chronic Priority: Medium Current Visit: No Qualifiers: Hypertension type: essential hypertension Qualified Code(s): I10 - Essential (primary) hypertension (6) Volume depletion SNOMED Code(s): 972932503 Code(s): E86.9 - VOLUME DEPLETION, UNSPECIFIED Status: Acute Current Visit: Yes (7) Glaucoma SNOMED Code(s): 93174424 Code(s): H40.9 - UNSPECIFIED GLAUCOMA Status: Chronic Priority: Low Cur rent Visit: No Qualifiers: Glaucoma type: unspecified Laterality: unspecified laterality Qualified Code(s): H40.9 - Unspecified glaucoma (8) Macular degeneration SNOMED Code(s): 287831648 Code(s): H35.30 - UNSPECIFIED MACULAR DEGENERATION Status: Chronic Priority: Low Current Visit: No Qualifiers: Macular degeneration type: unspecified type Eye laterality: unspecified Qualified Code(s): H35.30 - Unspecified macular degeneration (9) COPD (chronic obstructive pulmonary disease) SNOMED Code(s): 53293980 Code(s): J44.9 - CHRONIC OBSTRUCTIVE PULMONARY DISEASE, UNSPECIFIED Status: Chronic Priority: Medium Current Visit: Yes Qualifiers: COPD type: unspecified COPD Qualified Code(s): J44.9 - Chronic obstructive pulmonary disease, unspecified (10) Chronic dyspnea SNOMED Code(s): 622507178, 402943442 Code(s): R06.00 - DYSPNEA, UNSPECIFIED Status: Chronic Priority: High Current Visit: Yes (11) Asthma SNOMED Code(s): 045475808 Code(s): J45.909 - UNSPECIFIED ASTHMA, UNCOMPLICATED Status: Chronic Priority: Medium Current Visit: No Qualifiers: Asthma severity: unspecified severity Asthma persistence: unspecified Asthma complication type: unspecified Qualified Code(s): J45.909 - Unspecified asthma, uncomplicated (12) GERD (gastroesophageal reflux disease) SNOMED Code(s): 119931756 Code(s): K21.9 - GASTRO-ESOPHAGEAL REFLUX DISEASE WITHOUT ESOPHAGITIS Status: Chronic Priority: Medium Current Visit: No Qualifiers: Esophagitis presence: with esophagitis Qualified Code(s): K21.0 - Gastro- esophageal reflux disease with esophagitis (13) History of small bowel obstruction SNOMED Code(s): 204595361851398 Code(s): Z87.19 - PERSONAL HISTORY OF OTHER DISEASES OF THE DIGESTIVE SYSTEM Status: Chronic Priority: Low Current Visit: No (14) History of right nephrectomy SNOMED Code(s): 24821199514077 Code(s): Z90.5 - ACQUIRED ABSENCE OF KIDNEY Status: Chronic Priority: Medium Current Visit: No (15) Arthritis SNOMED Code(s): 7852250 Code(s): M19.90 - UNSPECIFIED OSTEOARTHRITIS, UNSPECIFIED SITE Status: Chronic Priority: Low Current Visit: No (16) Dupuytren contracture SNOMED Code(s): 341280835 Code(s): M72.0 - PALMAR FASCIAL FIBROMATOSIS [DUPUYTREN] Status: Chronic Priority: Low Current Visit: No (17) History of TIA (transient ischemic attack) SNOMED Code(s): 140157456 Code(s): Z86.73 - PRSNL HX OF TIA (TIA), AND CEREB INFRC W/O RESID DEFICITS Status: Chronic Priority: Low Current Visit: No (18) Psoriasis SNOMED Code(s): 1620287 Code(s): L40.9 - PSORIASIS, UNSPECIFIED Status: Chronic Priority: Low Current Visit: No (19) Port-A-Cath in place SNOMED Code(s): 120266911 Code(s): Z95.828 - PRESENCE OF OTHER VASCULAR IMPLANTS AND GRAFTS Status: Chronic Priority: Medium Current Visit: Yes (20) Esophageal stricture SNOMED Code(s): 88196432 Code(s): K22.2 - ESOPHAGEAL OBSTRUCTION Status: Chronic Priority: Medium Current Visit: No (21) CKD (chronic kidney disease) stage 3, GFR 30-59 ml/min SNOMED Code(s): 058011858 Code(s): N18.3 - CHRONIC KIDNEY DISEASE, STAGE 3 (MODERATE) Status: Chronic Priority: Medium Current Visit: Yes (22) Hypomagnesemia SNOMED Code(s): 021162262 Code(s): E83.42 - HYPOMAGNESEMIA Status: Acute Current Visit: Yes (23) Weight loss SNOMED Code(s): 23375914, 101239537 Code(s): R63.4 - ABNORMAL WEIGHT LOSS Status: Acute Priority: Medium Current Visit: Yes (24) Acute dyspnea SNOMED Code(s): 532173885, 611033646 Code(s): R06.00 - DYSPNEA, UNSPECIFIED Status: Acute Priority: High Current Visit: Yes - Problem List Review Problem List Initiated/Reviewed/Updated: Yes - My Orders Last 24 Hours: My Active Orders 11/24/19 09:00 Docusate Sodium/Sennosides [Senna Plus] 1 tab PO DAILY Enoxaparin [Lovenox] 40 mg SUBCUT DAILY Metoprolol Succinate [Toprol XL] 50 mg PO DAILY 11/24/19 09:51 Patient Status [ADT] Routine 11/25/19 09:25 BASIC METABOLIC PANEL,BMP [CHEM] Routine - Plan Plan:: Generalized weakness Hyponatremia Metastatic cancer to lung Neoplasm of colon, 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 Loredo is monitoring No leukocytosis Sodium 123-->125-->123-->125-->126-->127-->128 BUN 21-->19-->18-->21-->19-->21-->19 Creatinine 1.2-->1.1>1.0-->1.1-->1.2 GFR 58--> greater than 60-->58 Anion Gap 15.5--> 11.8-->11.9-->12.0-->15.1-->13.1-->13.9 Troponin and BNP WNL Serum osmolality 262 Port accessed in ED Magnesium 1.6-->2.2-->2.1 Mycoplasma and strep pneumo negative Urine osmolality 397 Urine Sodium 78 TSH WNL PLAN -Re-check BMP today -IV fluids as directed -AM labs -Hold home Lasix -PT/OT -CM/SW consult -AM cortisol pending -Head CT and Abdominal CT to rule out brain and adrenal mets Esophageal stricture GERD (gastroesophageal reflux disease) History of small bowel obstruction Weight loss History of multiple ED visits for esophageal and bowel related cancers Known lower esophageal stricture Has been on soft diet at home PLAN - Continue soft diet here - Testing Lead consult for weight loss and help with meal choices Glaucoma Macular degeneration Hypertension Arthritis Dupuytren contracture History of TIA (transient ischemic attack) Psoriasis No current concerns Home medications reviewed PLAN -Continue home medications as directed -Monitor DVT Prophylaxis: Home BID ASA -> refusing, start Lovenox GI Prophylaxis: Not indicated Code status: CPR only PCP: Dr. Caldera Oncologist: Dr. Loredo Disposition: Patient will remain inpatient for further workup and IV fluids. Overall prognosis is poor given patients significant metastatic disease, weight loss, and overall frail health.
--- NOTE | 2019-11-25 12:32 | CT ---
Head CT Technique: Multiple axial sections through the brain were obtained. Intravenous contrast was not utilized. Comparison: No prior intracranial imaging is available. Findings: Ventricles along with basal cisterns and sulci over the convexities are mildly prominent. Minimal areas of diminished density are noted within the periventricular white matter most likely due to small vessel ischemic demyelination change. No other abnormal parenchymal densities are seen. No evidence of intracranial hemorrhage. No midline shift or mass-effect is appreciated. Bone window settings were reviewed. Visualized mastoid sinuses and visualized paranasal sinuses show nothing acute. No acute calvarial finding is seen. Impression: 1. Senescent change as noted above. 2. No definite intracranial metastatic disease is seen on this noncontrast study. Diagnostic code #2 This report was dictated in MDT
--- NOTE | 2019-11-25 13:51 | CT ---
CT abdomen Technique: Multiple axial sections were obtained from above the dome of the diaphragm inferiorly to the iliac crests. Intravenous contrast and oral contrast not utilized. Comparison: Prior CT abdomen and pelvis exam of 06/02/16. Findings: Multiple pulmonary nodules are seen within both lung bases. Low density lesion is noted within the inferior right lobe of the liver measuring about 2.9 cm which is most likely due to metastatic liver lesion. Spleen shows no discrete abnormality. 2 cysts noted within the left kidney. Surgical clips noted with no right kidney being seen. Left adrenal gland is enlarged showing nodular change most likely due to metastatic nodules. Right adrenal gland is partially seen and shows no nodules. Prior cholecystectomy is noted. Aorta shows atherosclerotic calcification which continues into the iliac vessels. No aneurysm is seen. No retroperitoneal adenopathy or mesenteric abnormalities are seen. Prior bowel surgery is seen on the right side. Bone window settings were reviewed. Scattered degenerative change throughout the spine is seen. Multiple low density areas are seen within the spine suspicious for possible early osteolytic metastatic disease. Impression: 1. Numerous metastatic nodules within the chest. Enlarged nodular left adrenal gland compatible with metastatic adrenal lesions. 2. Probable metastatic liver lesion inferiorly within the right lobe. 3. 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 4. Other findings believed to be nonacute as described above. Prior right nephrectomy. Diagnostic code #9 This report was dictated in MDT MTDD
[2019-11-25] MEDS ORDERED: Albuterol 6.7 GM Inhaler INH PRN (14:27)
[2019-11-26] MEDS: Sodium Chloride 0.9% 1,000 ML IV SCH ×2 (03:46→17:37)
[2019-11-26] MEDS: Metoprolol Succinate 50 MG Tab.ER PO SCH (08:57)
[2019-11-26] MEDS: Aspirin 325 MG Tab.EC PO SCH ×2 (08:57→20:33)
[2019-11-26] MEDS: Enoxaparin 40 MG/0.4 ML Syringe SUBCUT SCH (08:58)
--- NOTE | 2019-11-26 12:21 | PCM.PN ---
- General Info Date of Service: 11/26/19 Subjective Update: States he feels better SOB is improved from admission but is still there BM 11/24 Tolerating diet Sleeping Well - Patient Data Vitals - Most Recent: Last Vital Signs Temp 99.0 F 11/26/19 11:27 Pulse 77 11/26/19 11:27 Resp 24 H 11/26/19 11:27 BP 135/89 11/26/19 11:27 Pulse Ox 97 11/26/19 11:27 Weight - Most Recent: 80.059 kg - Exam General: Alert, Oriented, Cooperative, No Acute Distress HEENT: Pupils Equal, Pupils Reactive, EOMI, Mucous Membr. Moist/[place] Neck: Supple, Trachea Midline, No JVD, No Thyromegaly, +2 Carotid Pulse wo Bruit Lungs: Clear to Auscultation, Normal Respiratory Effort. No: Crackles, Rales, Rhonchi, Rub, Stridor, Wheezing Cardiovascular: Regular Rate, Regular Rhythm. No: Murmurs, Gallops, Rubs GI/Abdominal Exam: Normal Bowel Sounds, Soft, Non-Tender. No: Distended, Guard ing, Rigid, Rebound Extremities: Normal Inspection, Non-Tender, No Pedal Edema Peripheral Pulses: 2+: Radial (L), Radial (R), Dorsalis Pedis (L), Dorsalis Pedis (R) Neurological: No New Focal Deficit Psy/Mental Status: Normal Affect, Normal Mood Sepsis Event Note - Evaluation Sepsis Screening Result: No Definite Risk - Problem List & Annotations (1) Dysphagia, unspecified SNOMED Code(s): 69767218, 388984111 Code(s): R13.10 - DYSPHAGIA, UNSPECIFIED Status: Acute Current Visit: Yes (2) Acute dyspnea SNOMED Code(s): 502160785, 877130083 Code(s): R06.00 - DYSPNEA, UNSPECIFIED Status: Acute Priority: High Current Visit: Yes (3) Generalized weakness SNOMED Code(s): 57854181 Code(s): R53.1 - WEAKNESS Status: Acute Priority: High Current Visit: Yes (4) Hypomagnesemia SNOMED Code(s): 652316670 Code(s): E83.42 - HYPOMAGNESEMIA Status: Acute Current Visit: Yes (5) Hyponatremia SNOMED Code(s): 94873395 Code(s): E87.1 - HYPO-OSMOLALITY AND HYPONATREMIA Status: Acute Priority: High Current Visit: Yes (6) Volume depletion SNOMED Code(s): 830076912 Code(s): E86.9 - VOLUME DEPLETION, UNSPECIFIED Status: Acute Current Visit: Yes (7) Weight loss SNOMED Code(s): 89886637, 650440963 Code(s): R63.4 - ABNORMAL WEIGHT LOSS Status: Acute Priority: Medium Current Visit: Yes (8) CKD (chronic kidney disease) stage 3, GFR 30-59 ml/min SNOMED Code(s): 486335389 Code(s): N18.3 - CHRONIC KIDNEY DISEASE, STAGE 3 (MODERATE) Status: Chronic Priority: Medium Current Visit: Yes (9) COPD (chronic obstructive pulmonary disease) SNOMED Code(s): 39390296 Code(s): J44.9 - CHRONIC OBSTRUCTIVE PULMONARY DISEASE, UNSPECIFIED Status: Chronic Priority: Medium Current Visit: Yes Qualifiers: COPD type: unspecified COPD Qualified Code(s): J44.9 - Chronic obstructive pulmonary disease, unspecified (10) Chronic dyspnea SNOMED Code(s): 270174695, 418488201 Code(s): R06.00 - DYSPNEA, UNSPECIFIED Status: Chronic Priority: High Current Visit: Yes (11) Metastatic cancer to lung SNOMED Code(s): 15276444 Code(s): C78.00 - SECONDARY MALIGNANT NEOPLASM OF UNSPECIFIED LUNG Status: Chronic Priority: High Current Visit: Yes Qualifiers: Laterality: unspecified laterality Qualified Code(s): C78.00 - Secondary malignant neoplasm of unspecified lung (12) Neoplasm of colon, 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 SNOMED Code(s): 57819489, 070741326 Code(s): D01.0 - CARCINOMA IN SITU OF COLON Status: Chronic Priority: High Current Visit: Yes (13) Port-A-Cath in place SNOMED Code(s): 804184543 Code(s): Z95.828 - PRESENCE OF OTHER VASCULAR IMPLANTS AND GRAFTS Status: Chronic Priority: Medium Current Visit: Yes (14) Abdominal pain SNOMED Code(s): 98318817 Code(s): R10.9 - UNSPECIFIED ABDOMINAL PAIN Status: Acute Priority: High Current Visit: No Qualifiers: Abdominal location: generalized Qualified Code(s): R10.84 - Generalized abdominal pain - Problem List Review Problem List Initiated/Reviewed/Updated: Yes - Plan Plan:: Generalized weakness Hyponatremia Metastatic cancer to lung Neoplasm of colon, 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 Loredo is monitoring No leukocytosis Sodium 123-->125-->123-->125-->126-->127-->128--> 130 BUN 21-->19-->18-->21-->19-->21-->19 Creatinine 1.2-->1.1>1.0-->1.1-->1.2 GFR 58--> greater than 60-->58 Anion Gap 15.5--> 11.8-->11.9-->12.0-->15.1-->13.1-->13.9 Troponin and BNP WNL Serum osmolality 262 Port accessed in ED Magnesium 1.6-->2.2-->2.1 Mycoplasma and strep pneumo negative Urine osmolality 397 Urine Sodium 78 TSH WNL No brain metastasis or adrenal lesions PLAN -IV fluids as directed -AM labs -Hold home Lasix -PT/OT -CM/SW consult -AM cortisol pending -Head CT and Abdominal CT to rule out brain and adrenal mets Esophageal stricture GERD (gastroesophageal reflux disease) History of small bowel obstruction Weight loss History of multiple ED visits for esophageal and bowel related cancers Known lower esophageal stricture Has been on soft diet at home PLAN - Continue soft diet - Trauma Doctor consult for weight loss and help with meal choices Glaucoma Macular degeneration Hypertension Arthritis Dupuytren contracture History of TIA (transient ischemic attack) Psoriasis No current concerns Home medications reviewed PLAN -Continue home medications as directed -Monitor DVT Prophylaxis: Home BID ASA -> refusing, start Lovenox GI Prophylaxis: Not indicated Code status: CPR only PCP: Dr. Caldera Oncologist: Dr. Loredo Disposition: Patient will remain inpatient for monitorization, likely to be DC in AM. Overall prognosis is poor given patients significant metastatic disease, weight loss, and overall frail health.
[2019-11-27] MEDS: Sodium Chloride 0.9% 1,000 ML IV SCH (03:29)
[2019-11-27] MEDS ORDERED: Magnesium Hydroxide 400 MG/5 ML Susp 30 ML Cup PO ONE (09:00)
[2019-11-27] MEDS: Aspirin 325 MG Tab.EC PO SCH ×2 (09:25→22:14)
[2019-11-27] MEDS: Metoprolol Succinate 50 MG Tab.ER PO SCH (09:27)
[2019-11-27] MEDS: Sodium Chloride/Potassium Chloride Tab PO SCH (12:08)
[2019-11-28] MEDS ORDERED: Magnesium Hydroxide 400 MG/5 ML Susp 30 ML Cup PO ONE (09:17)
[2019-11-28] MEDS: Sodium Chloride/Potassium Chloride Tab PO SCH (09:45)
[2019-11-28] MEDS: Metoprolol Succinate 50 MG Tab.ER PO SCH (09:46)
[2019-11-28] MEDS: Aspirin 325 MG Tab.EC PO SCH (09:46)
--- NOTE | 2019-11-28 11:40 | PCM.PN ---
- General Info Date of Service: 11/27/19 Admission Dx/Problem (Free Text): Admission Diagnosis/Problem Admission Diagnosis/Problem Hyponatremia 11/23/2019 79 year old male that was admitted to the floor from the ER where he presented with gradually worsening dyspnea over the 3 days prior to coming to the ER and has a history of cancer x2 years. Reports worsening acute on chronic dyspnea over past few days, cough with clear sputum Reports orthopnea - denies fever, hemoptysis, chest pain History of colon cancer with mets to lung and liver - reports colon and liver are in remission CXR shows multiple pulmonary nodules but nothing acute Not undergoing chemotherapy - reports Dr. 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 Magnesium will also be supplemented. Overall prognosis is poor given patients significant metastatic disease, weight loss, and overall frail health. 11/24/2019 Sodium 123-->125 BUN 21-->19 Creatinine 1.2-->1.1 GFR 58--> greater than 60 Anion Gap 15.5--> 11.8 Troponin and BNP WNL Serum osmolality 262 Port accessed in ED Magnesium 1.6-->2.2 Mycoplasma negative Urine osmolality 397 Urine Sodium 78 TSH WNL PLAN -IV fluids as directed - Start 3% hypotonic today at 54mL/hr. -Re-check BNP Q4 Hrs -Goal Na of 131 today - not more than 133 -AM labs -Hold home Lasix -PT/OT -CM/SW consult -AM cortisol pending -Strep pneumo pending -Droplet Isolation 11/25/2019 No acute complaints Reports nausea and vomiting x1 episode last night. None since that episode Reports continued dyspnea Last BM yesterday Sodium 123-->125-->123-->125-->126-->127-->128 BUN 21-->19-->18-->21-->19-->21-->19 Creatinine 1.2-->1.1>1.0-->1.1-->1.2 GFR 58--> greater than 60-->58 Anion Gap 15.5--> 11.8-->11.9-->12.0-->15.1-->13.1-->13.9 Troponin and BNP WNL Serum osmolality 262 Port accessed in ED Magnesium 1.6-->2.2-->2.1 Mycoplasma and strep pneumo negative Urine osmolality 397 Urine Sodium 78 TSH WNL PLAN -Re-check BMP today -IV fluids as directed -AM labs -Hold home Lasix -PT/OT -CM/SW consult -AM cortisol pending -Head CT and Abdominal CT to rule out brain and adrenal mets 11/26/2019 States he feels better SOB is improved from admission but is still there BM 11/24 Tolerating diet Sleeping Well Sodium 123-->125-->123-->125-->126-->127-->128--> 130 BUN 21-->19-->18-->21-->19-->21-->19 Creatinine 1.2-->1.1>1.0-->1.1-->1.2 GFR 58--> greater than 60-->58 Anion Gap 15.5--> 11.8-->11.9-->12.0-->15.1-->13.1-->13.9 Troponin and BNP WNL Serum osmolality 262 Port accessed in ED Magnesium 1.6-->2.2-->2.1 Mycoplasma and strep pneumo negative Urine osmolality 397 Urine Sodium 78 TSH WNL No brain metastasis or adrenal lesions PLAN -IV fluids as directed -AM labs -Hold home Lasix -PT/OT -CM/SW consult -AM cortisol pending -Head CT and Abdominal CT to rule out brain and adrenal mets 11/27/2019 Vital signs are stable He is on room air Wearing glasses x1 assist with FWW States that he is doing well He is up in his chair watching TV States that he has a good appetite States that he is sleeping well Discussed continuing soft diet with fluid restrictions Discussed checking labs Discussed discontinuing magnesium hydroxide Discussed possible discharge tomorrow if stable Subjective Update: 11/27/2019 Vital signs are stable He is on room air Wearing glasses x1 assist with FWW States that he is doing well He is up in his chair watching TV States that he has a good appetite States that he is sleeping well Discussed continuing soft diet with fluid restrictions Discussed checking labs Discussed discontinuing magnesium hydroxide Discussed possible discharge tomorrow if stable Functional Status: Reports: Pain Controlled Pain Score: 1 - Review of Systems General: Reports: No Symptoms HEENT: Reports: Glasses Pulmonary: Reports: No Symptoms Cardiovascular: Reports: No Symptoms, Dyspnea on Exertion Gastrointestinal: Reports: No Symptoms Genitourinary: Reports: No Symptoms Musculoskeletal: Reports: No Symptoms Skin: Reports: No Symptoms Neurological: Reports: No Symptoms Psychiatric: Reports: No Symptoms - Patient Data Vitals - Most Recent: Last Vital Signs Temp 98.4 F 11/27/19 11:43 Pulse 73 11/27/19 11:43 Resp 20 11/27/19 11:43 BP 146/74 H 11/27/19 11:43 Pulse Ox 97 11/27/19 12:00 Weight - Most Recent: 79.515 kg I&O - Last 24 Hours: Intake & Output 11/26/19 11/27/19 11/27/19 22:59 06:59 14:59 Intake Total 1591 1523 358 Output Total 900 450 Balance 691 1073 358 Lab Results Last 24 Hours: Laboratory Results - last 24 hr 11/27/19 11/27/19 Range/Units 05:25 05:25 WBC 7.12 (4.23-9.07) K/mm3 RBC 3.69 L (4.63-6.08) M/mm3 Hgb 10.1 L (13.7-17.5) gm/dl Hct 31.0 L (40.1-51.0) % MCV 84.0 (79.0-92.2) fl MCH 27.4 (25.7-32.2) pg MCHC 32.6 (32.2-35.5) g/dl RDW Std Deviation 40.5 (35.1-43.9) fL Plt Count 192 (163-337) K/mm3 MPV 10.5 (9.4-12.3) fl Neut % (Auto) 71.1 H (34.0-67.9) % Lymph % (Auto) 10.7 L (21.8-53.1) % Kaufman % (Auto) 12.5 H (5.3-12.2) % Eos % (Auto) 5.3 (0.8-7.0) Baso % (Auto) 0.1 (0.1-1.2) % Neut # (Auto) 5.06 (1.78-5.38) K/mm3 Lymph # (Auto) 0.76 L (1.32-3.57) K/mm3 Kaufman # (Auto) 0.89 H (0.30-0.82) K/mm3 Eos # (Auto) 0.38 (0.04-0.54) K/mm3 Baso # (Auto) 0.01 (0.01-0.08) K/mm3 Sodium 129 L (136-145) mEq/L Potassium 4.7 (3.5-5.1) mEq/L Chloride 99 (98-107) mEq/L Carbon Dioxide 21 (21-32) mEq/L Anion Gap 13.7 (5-15) BUN 20 H (7-18) mg/dL Creatinine 1.1 (0.7-1.3) mg/dL Est Cr Clr Drug Dosing 51.82 mL/min Estimated GFR (MDRD) > 60 (>60) mL/min BUN/Creatinine Ratio 18.2 H (14-18) Glucose 85 (83-115) mg/dL Calcium 8.2 L (8.5-10.1) mg/dL Phosphorus 3.3 (2.6-4.7) mg/dL Magnesium 1.8 (1.8-2.4) mg/dl Med Orders - Current: Current Medications Acetaminophen (Tylenol) 650 mg PO Q4H PRN PRN Reason: Pain (Mild 1-3)/fever Al Hydroxide/Mg Hydroxide (Mag-Al Plus) 30 ml PO Q8H PRN PRN Reason: Heartburn Last Admin: 11/23/19 22:03 Dose: 30 ml Documented by: Albuterol (Proventil Hfa) 0 gm INH Q2H PRN PRN Reason: SOB/Wheezing Albuterol/Ipratropium (Duoneb 3.0-0.5 Mg/3 Ml) 3 ml NEB Q6HRRT PRN PRN Reason: wheezing/SOB/cough Aspirin (Ecotrin) 325 mg PO BID [facility] Last Admin: 11/27/19 09:25 Dose: 325 mg Documented by: Metoprolol Succinate (Toprol Xl) 50 mg PO DAILY [facility] Last Admin: 11/27/19 09:27 Dose: 50 mg Documented by: Ondansetron HCl (Zofran) 4 mg IV Q6H PRN PRN Reason: Nausea/Vomiting Last Admin: 11/24/19 21:09 Dose: 4 mg Documented by: Oral Electrolytes (Thermotabs) 2 each PO DAILY [facility] Last Admin: 11/27/19 12:08 Dose: 2 each Documented by: Senna/Docusate Sodium (Senna Plus) 1 tab PO DAILY [facility] Last Admin: 11/27/19 09:25 Dose: 1 tab Documented by: Discontinued Medications Enoxaparin Sodium (Lovenox) 40 mg SUBCUT DAILY [facility] Last Admin: 11/26/19 08:58 Dose: 40 mg Documented by: Sodium Chloride (Normal Saline) 1,000 mls @ 100 mls/hr IV ASDIRECTED [facility] Last Admin: 11/23/19 23:04 Dose: 50 mls/hr Documented by: Magnesium Sulfate 2 gm/ Premix 50 mls @ 25 mls/hr IV ONETIME ONE Stop: 11/23/19 16:38 Last Admin: 11/23/19 15:06 Dose: 25 mls/hr Documented by: Sodium Chloride (Normal Saline) 1,000 mls @ 50 mls/hr IV ASDIRECTED [facility] Sodium Chloride (Sodium Chloride 3%) 500 mls @ 53 mls/hr IV ASDIRECTED [facility] Stop: 11/24/19 09:01 Sodium Chloride (Sodium Chloride 3%) 500 mls @ 53 mls/hr IV ASDIRECTED [facility] Stop: 11/24/19 19:00 Last Admin: 11/24/19 10:05 Dose: 53 mls/hr Documented by: Sodium Chloride (Sodium Chloride 3%) 250 mls @ 53 mls/hr IV ASDIRECTED [facility] Stop: 11/25/19 00:30 Last Admin: 11/24/19 20:33 Dose: 53 mls/hr Documented by: Sodium Chloride (Normal Saline) 1,000 mls @ 50 mls/hr IV ASDIRECTED [facility] Last Admin: 11/26/19 03:46 Dose: 50 mls/hr Documented by: Sodium Chloride (Normal Saline) 1,000 mls @ 100 mls/hr IV ASDIRECTED [facility] Last Admin: 11/27/19 03:29 Dose: 100 mls/hr Documented by: Magnesium Hydroxide (Milk Of Magnesia) 30 ml PO ONETIME ONE Stop: 11/27/19 09:01 Last Admin: 11/27/19 09:25 Dose: 30 ml Documented by: - Exam General: Alert, Oriented HEENT: Pupils Equal, Pupils Reactive, EOMI, Mucous Membr. Moist/Brooker Neck: Supple Lungs: Clear to Auscultation, Normal Respiratory Effort Cardiovascular: Regular Rate, Regular Rhythm GI/Abdominal Exam: Normal Bowel Sounds, Soft, Non-Tender, No Organomegaly, No Distention, No Abnormal Bruit, No Mass, Pelvis Stable (Male) Exam: No Hernia, Normal Inspection, Normal Prostate, Circumcised Back Exam: Normal Inspection, Full Range of Motion Extremities: Normal Inspection, Normal Range of Motion, Non-Tender, No Pedal Edema, Normal Capillary Refill Skin: Warm, Dry, Intact Wound/Incisions: Healing Well Neurological: No New Focal Deficit Psy/Mental Status: Alert, Normal Affect, Normal Mood Sepsis Event Note - Evaluation Sepsis Screening Result: No Definite Risk - Focused Exam Vital Signs: Vital Signs Temp Pulse Resp BP Pulse Ox Pulse Ox 11/27/19 12:00 97 97 11/27/19 11:43 98.4 F 73 20 146/74 H 97 11/27/19 09:27 77 155/74 H 11/27/19 07:35 98.2 F 77 20 155/74 H 97 11/27/19 03:32 98.1 F 80 20 144/74 H 96 11/27/19 00:36 99.0 F 84 18 141/68 H 95 Date Exam was Performed: 11/28/19 Time Exam was Performed: 11:35 - Problem List & Annotations (1) Acute dyspnea SNOMED Code(s): 268368760, 763343250 Code(s): R06.00 - DYSPNEA, UNSPECIFIED Status: Acute Priority: Low Current Visit: Yes Annotation/Comment:: improved/ removed i.v as na 130 start na tabs daily (2) Generalized weakness SNOMED Code(s): 42297013 Code(s): R53.1 - WEAKNESS Status: Acute Priority: Low Current Visit: Yes Annotation/Comment:: improving but still present (3) Hypomagnesemia SNOMED Code(s): 045851036 Code(s): E83.42 - HYPOMAGNESEMIA Status: Acute Priority: Low Current Visit: Yes Annotation/Comment:: resolved (4) Hyponatremia SNOMED Code(s): 91530567 Code(s): E87.1 - HYPO-OSMOLALITY AND HYPONATREMIA Status: Acute Priority: Medium Current Visit: Yes (5) Volume depletion SNOMED Code(s): 927983933 Code(s): E86.9 - VOLUME DEPLETION, UNSPECIFIED Status: Acute Priority: Low Current Visit: Yes Annotation/Comment:: resolved and i.v dced (6) Weight loss SNOMED Code(s): 04375680, 068303514 Code(s): R63.4 - ABNORMAL WEIGHT LOSS Status: Acute Priority: Low Current Visit: Yes Annotation/Comment:: weight gain in hosp noted approx 6 lbs . non edematous but mild pierre (7) CKD (chronic kidney disease) stage 3, GFR 30-59 ml/min SNOMED Code(s): 047255460 Code(s): N18.3 - CHRONIC KIDNEY DISEASE, STAGE 3 (MODERATE) Status: Chronic Priority: Low Current Visit: Yes Annotation/Comment:: creat stable - Problem List Review Problem List Initiated/Reviewed/Updated: Yes - Assessment Assessment:: 11/23/2019 79 year old male that was admitted to the floor from the ER where he presented with gradually worsening dyspnea over the 3 days prior to coming to the ER and has a history of cancer x2 years. Reports worsening acute on chronic dyspnea over past few days, cough with clear sputum Reports orthopnea - denies fever, hemoptysis, chest pain History of colon cancer with mets to lung and liver - reports colon and liver are in remission CXR shows multiple pulmonary nodules but nothing acute Not undergoing chemotherapy - reports Dr. 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 Magnesium will also be supplemented. Overall prognosis is poor given patients significant metastatic disease, weight loss, and overall frail health. 11/24/2019 Sodium 123-->125 BUN 21-->19 Creatinine 1.2-->1.1 GFR 58--> greater than 60 Anion Gap 15.5--> 11.8 Troponin and BNP WNL Serum osmolality 262 Port accessed in ED Magnesium 1.6-->2.2 Mycoplasma negative Urine osmolality 397 Urine Sodium 78 TSH WNL PLAN -IV fluids as directed - Start 3% hypotonic today at 54mL/hr. -Re-check BNP Q4 Hrs -Goal Na of 131 today - not more than 133 -AM labs -Hold home Lasix -PT/OT -CM/SW consult -AM cortisol pending -Strep pneumo pending -Droplet Isolation 11/25/2019 No acute complaints Reports nausea and vomiting x1 episode last night. None since that episode Reports continued dyspnea Last BM yesterday Sodium 123-->125-->123-->125-->126-->127-->128 BUN 21-->19-->18-->21-->19-->21-->19 Creatinine 1.2-->1.1>1.0-->1.1-->1.2 GFR 58--> greater than 60-->58 Anion Gap 15.5--> 11.8-->11.9-->12.0-->15.1-->13.1-->13.9 Troponin and BNP WNL Serum osmolality 262 Port accessed in ED Magnesium 1.6-->2.2-->2.1 Mycoplasma and strep pneumo negative Urine osmolality 397 Urine Sodium 78 TSH WNL PLAN -Re-check BMP today -IV fluids as directed -AM labs -Hold home Lasix -PT/OT -CM/SW consult -AM cortisol pending -Head CT and Abdominal CT to rule out brain and adrenal mets 11/26/2019 States he feels better SOB is improved from admission but is still there BM 11/24 Tolerating diet Sleeping Well Sodium 123-->125-->123-->125-->126-->127-->128--> 130 BUN 21-->19-->18-->21-->19-->21-->19 Creatinine 1.2-->1.1>1.0-->1.1-->1.2 GFR 58--> greater than 60-->58 Anion Gap 15.5--> 11.8-->11.9-->12.0-->15.1-->13.1-->13.9 Troponin and BNP WNL Serum osmolality 262 Port accessed in ED Magnesium 1.6-->2.2-->2.1 Mycoplasma and strep pneumo negative Urine osmolality 397 Urine Sodium 78 TSH WNL No brain metastasis or adrenal lesions PLAN -IV fluids as directed -AM labs -Hold home Lasix -PT/OT -CM/SW consult -AM cortisol pending -Head CT and Abdominal CT to rule out brain and adrenal mets 11/27/2019 Vital signs are stable He is on room air Wearing glasses x1 assist with FWW States that he is doing well He is up in his chair watching TV States that he has a good appetite States that he is sleeping well Discussed continuing soft diet with fluid restrictions Discussed checking labs Discussed discontinuing magnesium hydroxide Discussed possible discharge tomorrow if stable - Plan Plan:: 11/27/2019 Vital signs are stable He is on room air Wearing glasses x1 assist with FWW States that he is doing well He is up in his chair watching TV States that he has a good appetite States that he is sleeping well Discussed continuing soft diet with fluid restrictions Discussed checking labs Discussed discontinuing magnesium hydroxide Discussed possible discharge tomorrow if stable
--- NOTE | 2019-11-28 11:51 | PCM.DCSUM1 ---
Discharge Summary - Hospital Course HPI Initial Comments: Admission Diagnosis/Problem Hyponatremia Source of Information: Patient, Old Records, Provider, RN, RN Notes Reviewed History Limitations: Reports: No Limitations - History of Present Illness Initial Comments - Free Text/Narative: Qi Ellis is an 79 yo male resents to ED on 11/23/2019 with worsening dyspnea over the past 3 days. Reports this is most obvious when attempting to ambulate upstairs. He reports orthopnea and a cough productive of clear sputum. No fever, chills, chest pain, hemoptysis, or recent medication changes. He has been seen in our ED multiple times complaining of food stuck in his lower esophagus. He states because of this he has been eating a mostly soft diet. He has a history of metastatic lung cancer x2 years. Is believed the primary cancer was in his colon and he had a transient colostomy. He is not been receiving any chemotherapy. Denies any current bowel symptoms. In the ED temp was 36.2 Celsius. Pulse 88. Respirations 18. Blood pressure 129/88. Pulse ox 98%. Twelve-lead EKG is obtained showing a sinus rhythm at 84 bpm with LAD and a first-degree AV block. There is a right bundle branch block pattern with left anterior fascicular block and a repolarization abnormality in V1 to V5. QTC is noted to be mildly prolonged as well. Labs are obtained. There is no leukocytosis but his hemoglobin is slightly low at 11.5. Neutrophils are elevated at 77%. INR 0.99. Sodium is quite low at 123. Potassium 4.5. Chloride is low at 91. Anion gap is slightly high at 15.5. BUN is high at 21. Creatinine high at 1.2. GFR is 58. Uric acid is normal at 6.3. Calcium is low at 8.3. Magnesium low at 1.6. Troponin negative at less than 0.017. CRP is mildly elevated at 1.9. ESR is 27. Serum osmolality is low at 262. proBNP is normal at 398. Given Tylenol and Zofran. Started on saline IV infusion. He does have a Port-A-Cath in his upper left anterior chest. Chest x-ray obtained showing multiple pulmonary nodules seen diffusely within both sides of the chest. No definitive change from previous chest x-ray. He is admitted observation status with telemetry. Carries a history of glaucoma, macular degeneration, hypertension, recurrent bronchitis, COPD, shortness of breath, stress asthma, bowel obstruction, GERD, liver mass, dysphagia, prior small bowel obstruction, chronic renal insufficiency, nephrectomy, arthritis, Butrans contracture, TIA, depression, colon cancer with mets to his liver and lung, psoriasis. He is a CPR Only. PCP is Dr. Caldera. His oncologist is Dr. Loredo. - Related Data Allergies/Adverse Reactions: Allergies Allergy/AdvReac Type Severity Reaction Status Date / Time azithromycin Allergy Severe Anaphylactic Verified 11/23/19 08:23 Shock gatifloxacin [From Tequin] Allergy Severe Anaphylactic Verified 11/23/19 08:23 Shock lansoprazole [From Prevacid] Allergy Severe Anaphylactic Verified 11/23/19 08:23 Shock Penicillins Allergy Severe Anaphylactic Verified 11/23/19 08:23 Shock omeprazole [From Prilosec] Allergy Mild Cannot Verified 11/23/19 15:26 Remember Sulfa (Sulfonamide Allergy Mild Rash Verified 11/23/19 15:26 Antibiotics) Home Medications: Home Meds Albuterol Sulfate [Proair Hfa] 2 puff INH Q6H PRN 02/25/19 [History] Aspirin [Aspirin EC] 325 mg PO BID 02/25/19 [History] Furosemide 20 mg PO DAILY 02/25/19 [History] Lutein/Minerals/Vit A,C & E [I-Jil] 1 tab PO DAILY 02/25/19 [History] Metoprolol Succinate 50 mg PO DAILY 02/25/19 [History] Sennosides/Docusate Sodium [Senna-Docusate Sodium Tablet] 1 - 2 tab PO DAILY 02/25/19 [History] allopurinoL [Zyloprim] 50 mg PO DAILY 02/25/19 [History] Calcium Carbonate [Tums Extra Strength] 750 mg PO ASDIRECTED PRN 11/10/19 [History] Past Medical History HEENT History: Reports: Glaucoma, Macular Degeneration Other HEENT History: wears eyeglasses, has dentures Cardiovascular History: Reports: Hypertension Respiratory History: Reports: Bronchitis, Recurrent, COPD, SOB Other Respiratory History: stress asthma Gastrointestinal History: Reports: Bowel Obstruction, GERD Other Gastrointestinal History: esophagitis, liver mass, dysphagia, ileus, peg tube placement, small bowel obstruction Genitourinary History: Reports: Chronic Renal Insuffiency, Other (See Below) Other Genitourinary History: Rt nephrectomy [employer] History: Reports: None Musculoskeletal History: Reports: Arthritis Other Musculoskeletal History: dupuytren's contracture Neurological History: Reports: TIA Other Neuro History: ?TIAs many years ago Psychiatric History: Reports: Depression Endocrine/Metabolic History: Reports: None Hematologic History: Reports: None Immunologic History: Reports: None Oncologic (Cancer) History: Reports: Colon, Liver, Lung Other Oncologic History: off of chemo for the past 9 months, with james cath L chest Dermatologic History: Reports: Psoriasis - Infectious Disease History Infectious Disease History: Reports: Measles, Mumps - Past Surgical History Head Surgeries/Procedures: Reports: None HEENT Surgical History: Reports: Cataract Surgery, Naso-Sinus Surgery Cardiovascular Surgical History: Reports: Vascular Surgery Respiratory Surgical History: Reports: Tracheostomy, Other (See Below) GI Surgical History: Reports: Appendectomy, Cholecystectomy, Colon, Colonoscopy, Colostomy, EGD, Other (See Below) Male Surgical History: Reports: Nephrectomy Other Male Surgeries/Procedures: right kidney removed Endocrine Surgical History: Reports: None Neurological Surgical History: Reports: None Musculoskeletal Surgical History: Reports: Other (See Below) Oncologic Surgical History: Reports: Other (See Below) Dermatological Surgical History: Reports: Skin Biopsy Social & Family History - Family History Family Medical History: Noncontributory Cardiac: Reports: CAD, [place] GI: Reports: Other (See Below) : Reports: Renal Disease/Insufficiency Endocrine/Metabolic: Reports: Diabetes, type II Other Oncologic Family History: aunt had brain cancer - Tobacco Use Smoking Status *Q: Former Smoker Used Tobacco, but Quit: Yes Month/Year Tobacco Last Used: 20 years ago - Caffeine Use Caffeine Use: Reports: None Other Caffeine Use: occasional - Recreational Drug Use Recreational Drug Use: No - Living Situation & Occupation Living situation: Reports: , with Spouse 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) H&P Review of Systems - Review of Systems: Review Of Systems: See Below General: Reports: Malaise, Weakness, Fatigue, Decreased Appetite, Weight Loss. Denies: Fever, Chills HEENT: Reports: No Symptoms. Denies: Headaches, Sore Throat Pulmonary: Reports: Shortness of Breath, Cough, Sputum. Denies: Wheezing, Pleuritic Chest Pain Cardiovascular: Reports: Dyspnea on Exertion, Orthopnea. Denies: Chest Pain, Palpitations, Edema Gastrointestinal: Reports: Diarrhea, Difficulty Swallowing (History of esophageal stricture with frequent food boluses stuck in lower esophagus ), Nausea Genitourinary: Reports: Frequency. Denies: Pain Musculoskeletal: Reports: Neck Pain, Shoulder Pain, Back Pain, Joint Pain, Muscle Pain Skin: Reports: No Symptoms. Denies: Cyanosis Psychiatric: Reports: No Symptoms. Denies: Confusion Neurological: Reports: No Symptoms, Difficulty Walking (2/2 SOB), Weakness. Denies: Numbness, Tingling Hematologic/Lymphatic: Reports: No Symptoms Exam - Exam Exam: See Below - Vital Signs Vital Signs: Last Vital Signs Temp 97.2 F 11/23/19 08:18 Pulse 88 11/23/19 08:18 Resp 18 11/23/19 08:18 BP 129/88 11/23/19 08:18 Pulse Ox 98 11/23/19 08:18 Weight: 175 lb - Exam Quality Assessment: DVT Prophylaxis. No: Supplemental Oxygen General: Alert, Oriented, Cooperative. No: Mild Distress HEENT: Conjunctiva Clear, EACs Clear, Mucosa Moist & [place], PERRLA Neck: Supple, Trachea Midline Lungs: Clear to Auscultation, Normal Respiratory Effort, Other Cardiovascular: Regular Rate, Regular Rhythm, Other (Port in upper left chest ) GI/Abdominal Exam: Normal Bowel Sounds, Soft, Non-Tender, No Distention (Male) Exam: Deferred Rectal (Males) Exam: Deferred Back Exam: Normal Inspection, Full Range of Motion Extremities: Normal Inspection, Normal Range of Motion, Non-Tender, No Pedal Edema, Normal Capillary Refill Peripheral Pulses: 2+: Radial (L), Radial (R), Dorsalis Pedis (L), Dorsalis Pedis (R) Skin: Warm, Dry, Intact Neurological: Cranial Nerves Intact (Grossly ) Neuro Extensive - Mental Status: Alert, Oriented x3 - Patient Data Lab Results Last 24 hrs: Laboratory Results - last 24 hr 11/23/19 11/23/19 11/23/19 Range/Units 09:17 09:17 09:17 WBC 8.59 (4.23-9.07) K/mm3 RBC 4.30 L (4.63-6.08) M/mm3 Hgb 11.5 L (13.7-17.5) gm/dl Hct 35.1 L (40.1-51.0) % MCV 81.6 (79.0-92.2) fl MCH 26.7 (25.7-32.2) pg MCHC 32.8 (32.2-35.5) g/dl RDW Std Deviation 38.5 (35.1-43.9) fL Plt Count 221 (163-337) K/mm3 MPV 10.4 (9.4-12.3) fl Neut % (Auto) 77.0 H (34.0-67.9) % Lymph % (Auto) 9.1 L (21.8-53.1) % [place] % (Auto) 8.5 (5.3-12.2) % Eos % (Auto) 4.9 (0.8-7.0) Baso % (Auto) 0.2 (0.1-1.2) % Neut # (Auto) 6.61 H (1.78-5.38) K/mm3 Lymph # (Auto) 0.78 L (1.32-3.57) K/mm3 [place] # (Auto) 0.73 (0.30-0.82) K/mm3 Eos # (Auto) 0.42 (0.04-0.54) K/mm3 Baso # (Auto) 0.02 (0.01-0.08) K/mm3 Manual Slide Review Abnormal smear ESR (0-15) mm/hr PT 10.8 (9.7-12.0) SECONDS INR 0.99 APTT 47 H (22-31) SECONDS Sodium 123 L D (136-145) mEq/L Potassium 4.5 (3.5-5.1) mEq/L Chloride 91 L (98-107) mEq/L Carbon Dioxide 21 (21-32) mEq/L Anion Gap 15.5 H (5-15) BUN 21 H (7-18) mg/dL Creatinine 1.2 (0.7-1.3) mg/dL Est Cr Clr Drug Dosing 47.50 mL/min Estimated GFR (MDRD) 58 (>60) mL/min BUN/Creatinine Ratio 17.5 (14-18) Glucose 114 (83-115) mg/dL Uric Acid 6.3 (3.5-7.2) mg/dL Calcium 8.3 L (8.5-10.1) mg/dL Magnesium 1.6 L (1.8-2.4) mg/dl Total Bilirubin 0.5 (0.2-1.0) mg/dL AST 26 (15-37) U/L ALT 22 (16-63) U/L Alkaline Phosphatase 136 H (46-116) U/L Troponin I < 0.017 (0.00-0.056) ng/mL C-Reactive Protein 1.9 H* (<1.0) mg/dL NT-Pro-B Natriuret Pep (0-450) pg/mL Total Protein 6.2 L (6.4-8.2) g/dl Albumin 3.0 L (3.4-5.0) g/dl Globulin 3.2 gm/dL Albumin/Globulin Ratio 0.9 L (1-2) 11/23/19 11/23/19 Range/Units 09:17 09:17 WBC (4.23-9.07) K/mm3 RBC (4.63-6.08) M/mm3 Hgb (13.7-17.5) gm/dl Hct (40.1-51.0) % MCV (79.0-92.2) fl MCH (25.7-32.2) pg MCHC (32.2-35.5) g/dl RDW Std Deviation (35.1-43.9) fL Plt Count (163-337) K/mm3 MPV (9.4-12.3) fl Neut % (Auto) (34.0-67.9) % Lymph % (Auto) (21.8-53.1) % [place] % (Auto) (5.3-12.2) % Eos % (Auto) (0.8-7.0) Baso % (Auto) (0.1-1.2) % Neut # (Auto) (1.78-5.38) K/mm3 Lymph # (Auto) (1.32-3.57) K/mm3 [place] # (Auto) (0.30-0.82) K/mm3 Eos # (Auto) (0.04-0.54) K/mm3 Baso # (Auto) (0.01-0.08) K/mm3 Manual Slide Review ESR 27 H (0-15) mm/hr PT (9.7-12.0) SECONDS INR APTT (22-31) SECONDS Sodium (136-145) mEq/L Potassium (3.5-5.1) mEq/L Chloride (98-107) mEq/L Carbon Dioxide (21-32) mEq/L Anion Gap (5-15) BUN (7-18) mg/dL Creatinine (0.7-1.3) mg/dL Est Cr Clr Drug Dosing mL/min Estimated GFR (MDRD) (>60) mL/min BUN/Creatinine Ratio (14-18) Glucose (83-115) mg/dL Uric Acid (3.5-7.2) mg/dL Calcium (8.5-10.1) mg/dL Magnesium (1.8-2.4) mg/dl Total Bilirubin (0.2-1.0) mg/dL AST (15-37) U/L ALT (16-63) U/L Alkaline Phosphatase (46-116) U/L Troponin I (0.00-0.056) ng/mL C-Reactive Protein (<1.0) mg/dL NT-Pro-B Natriuret Pep 398 (0-450) pg/mL Total Protein (6.4-8.2) g/dl Albumin (3.4-5.0) g/dl Globulin gm/dL Albumin/Globulin Ratio (1-2) Result Diagrams: 11/23/19 09:17 11/23/19 09:17 Sepsis Event Note - Evaluation Sepsis Screening Result: No Definite Risk - Focused Exam Vital Signs: Vital Signs Temp Pulse Resp BP Pulse Ox 11/23/19 08:18 97.2 F 88 18 129/88 98 Date Exam was Performed: 11/23/19 Time Exam was Performed: 15:46 - Problem List (1) Generalized weakness SNOMED Code(s): 24592904 ICD Code: R53.1 - WEAKNESS Status: Acute Priority: High Current Visit: Yes (2) Hyponatremia SNOMED Code(s): 09280988 ICD Code: E87.1 - HYPO-OSMOLALITY AND HYPONATREMIA Status: Acute Priority: High Current Visit: Yes (3) Metastatic cancer to lung SNOMED Code(s): 07427107 ICD Code: C78.00 - SECONDARY MALIGNANT NEOPLASM OF UNSPECIFIED LUNG Status: Chronic Priority: High Current Visit: Yes Qualifiers: Laterality: unspecified laterality Qualified Code(s): C78.00 - Secondary malignant neoplasm of unspecified lung (4) Neoplasm of colon, 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 SNOMED Code(s): 15356356, 560078862 ICD Code: D01.0 - CARCINOMA IN SITU OF COLON Status: Chronic Priority: High Current Visit: Yes (5) Hypertension SNOMED Code(s): 42131704 ICD Code: I10 - ESSENTIAL (PRIMARY) HYPERTENSION Status: Chronic Priority: Medium Current Visit: No Qualifiers: Hypertension type: essential hypertension Qualified Code(s): I10 - Essential (primary) hypertension (6) Volume depletion SNOMED Code(s): 614163708 ICD Code: E86.9 - VOLUME DEPLETION, UNSPECIFIED Status: Acute Current Visit: Yes (7) Glaucoma SNOMED Code(s): 60406436 ICD Code: H40.9 - UNSPECIFIED GLAUCOMA Status: Chronic Priority: Low Current Visit: No Qualifiers: Glaucoma type: unspecified Laterality: unspecified laterality Qualified Code(s): H40.9 - Unspecified glaucoma (8) Macular degeneration SNOMED Code(s): 457987878 ICD Code: H35.30 - UNSPECIFIED MACULAR DEGENERATION Status: Chronic Priority: Low Current Visit: No Qualifiers: Macular degeneration type: unspecified type Eye laterality: unspecified Qualified Code(s): H35.30 - Unspecified macular degeneration (9) COPD (chronic obstructive pulmonary disease) SNOMED Code(s): 22303741 ICD Code: J44.9 - CHRONIC OBSTRUCTIVE PULMONARY DISEASE, UNSPECIFIED Status: Chronic Priority: Medium Current Visit: Yes Qualifiers: COPD type: unspecified COPD Qualified Code(s): J44.9 - Chronic obstructive pulmonary disease, unspecified (10) Chronic dyspnea SNOMED Code(s): 601558201, 256892764 ICD Code: R06.00 - DYSPNEA, UNSPECIFIED Status: Chronic Priority: High Current Visit: Yes (11) Asthma SNOMED Code(s): 696725115 ICD Code: J45.909 - UNSPECIFIED ASTHMA, UNCOMPLICATED Status: Chronic Priority: Medium Current Visit: No Qualifiers: Asthma severity: unspecified severity Asthma persistence: unspecified Asthma complication type: unspecified Qualified Code(s): J45.909 - Unspecified asthma, uncomplicated (12) GERD (gastroesophageal reflux disease) SNOMED Code(s): 150570016 ICD Code: K21.9 - GASTRO-ESOPHAGEAL REFLUX DISEASE WITHOUT ESOPHAGITIS Status: Chronic Priority: Medium Current Visit: No Qualifiers: Esophagitis presence: with esophagitis Qualified Code(s): K21.0 - Gastro- esophageal reflux disease with esophagitis (13) History of small bowel obstruction SNOMED Code(s): 656725973628621 ICD Code: Z87.19 - PERSONAL HISTORY OF OTHER DISEASES OF THE DIGESTIVE SYSTEM Status: Chronic Priority: Low Current Visit: No (14) History of right nephrectomy SNOMED Code(s): 66942204538362 ICD Code: Z90.5 - ACQUIRED ABSENCE OF KIDNEY Status: Chronic Priority: Medium Current Visit: No (15) Arthritis SNOMED Code(s): 7301869 ICD Code: M19.90 - UNSPECIFIED OSTEOARTHRITIS, UNSPECIFIED SITE Status: Chronic Priority: Low Current Visit: No (16) Dupuytren contracture SNOMED Code(s): 746674336 ICD Code: M72.0 - PALMAR FASCIAL FIBROMATOSIS [DUPUYTREN] Status: Chronic Priority: Low Current Visit: No (17) History of TIA (transient ischemic attack) SNOMED Code(s): 610816410 ICD Code: Z86.73 - PRSNL HX OF TIA (TIA), AND CEREB INFRC W/O RESID DEFICITS Status: Chronic Priority: Low Current Visit: No (18) Psoriasis SNOMED Code(s): 6258049 ICD Code: L40.9 - PSORIASIS, UNSPECIFIED Status: Chronic Priority: Low Current Visit: No (19) Port-A-Cath in place SNOMED Code(s): 356085001 ICD Code: Z95.828 - PRESENCE OF OTHER VASCULAR IMPLANTS AND GRAFTS Status: Chronic Priority: Medium Current Visit: Yes (20) Esophageal stricture SNOMED Code(s): 93405716 ICD Code: K22.2 - ESOPHAGEAL OBSTRUCTION Status: Chronic Priority: Medium Current Visit: No (21) CKD (chronic kidney disease) stage 3, GFR 30-59 ml/min SNOMED Code(s): 757575909 ICD Code: N18.3 - CHRONIC KIDNEY DISEASE, STAGE 3 (MODERATE) Status: Chronic Priority: Medium Current Visit: Yes (22) Hypomagnesemia SNOMED Code(s): 225914466 ICD Code: E83.42 - HYPOMAGNESEMIA Status: Acute Current Visit: Yes (23) Weight loss SNOMED Code(s): 95078374, 417341248 ICD Code: R63.4 - ABNORMAL WEIGHT LOSS Status: Acute Priority: Medium Current Visit: Yes (24) Acute dyspnea SNOMED Code(s): 267200697, 324464970 ICD Code: R06.00 - DYSPNEA, UNSPECIFIED Status: Acute Priority: High Current Visit: Yes Problem List Initiated/Reviewed/Updated: Yes Orders Last 24hrs: Active Orders 24 hr Category Date Time Status Patient Status [ADT] Routine ADT 11/23/19 12:25 Ordered Cardiac Monitoring [RC] CONTINUOUS Care 11/23/19 12:26 Ordered EKG Documentation Completion [RC] STAT Care 11/23/19 08:36 Active Height and Weight [RC] DAILY Care 11/23/19 12:26 Ordered Intake and Output [RC] QSHIFT Care 11/23/19 12:26 Ordered Oxygen Therapy [RC] PRN Care 11/23/19 12:22 Active Pulse Oximetry [RC] PRN Care 11/23/19 12:26 Ordered Up With Assistance [RC] ASDIRECTED Care 11/23/19 12:26 Ordered VTE/DVT Education [RC] PER UNIT ROUTINE Care 11/23/19 12:22 Active VTE/DVT Education [RC] PER UNIT ROUTINE Care 11/23/19 12:26 Ordered Vital Signs [RC] Q4H Care 11/23/19 12:22 Active Consult to Case Management/Cello Teacher [CONS] Cons 11/23/19 12:26 Ordered Routine Consult to Spiritual Care [CONS] Routine Cons 11/23/19 12:26 Ordered OT Evaluation and Treatment [CONS] Routine Cons 11/23/19 12:26 Ordered PT Evaluation and Treatment [CONS] Routine Cons 11/23/19 12:26 Ordered Regular Diet [DIET] Diet 11/23/19 Dinner Ordered OSMOLALITY,SERUM [CHEM] Stat Lab 11/23/19 11:40 Ordered OSMOLALITY,URINE [URCHEM] Stat Lab 11/23/19 12:21 Ordered SODIUM,URINE RANDOM [URCHEM] Stat Lab 11/23/19 12:18 Ordered Acetaminophen [Tylenol] Med 11/23/19 12:26 Ordered 650 mg PO Q4H PRN Ondansetron [Zofran] Med 11/23/19 12:26 Ordered 4 mg IV Q6H PRN Sodium Chloride 0.9% [Normal Saline] 1,000 ml Med 11/23/19 08:45 Active IV ASDIRECTED Medication Orders Sodium Chloride (Normal Saline) 1,000 mls @ 50 mls/hr IV ASDIRECTED SHANNON Last Admin: 11/23/19 09:27 Dose: 50 mls/hr Documented by: MADI Assessment/Plan Comment:: Generalized weakness Hyponatremia Metastatic cancer to lung Neoplasm of colon, 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 History of right nephrectomy Volume depletion Port-A-Cath in place CKD (chronic kidney disease) stage 3, GFR 30-59 ml/min COPD (chronic obstructive pulmonary disease) Acute on chronic dyspnea Asthma - Discharge Data Discharge Date: 11/28/19 Discharge Disposition: Home, Self-Care 01 Condition: Fair - Referral to Home Health Date of Face to Face Encounter: 11/28/19 Primary Care Physician: Brendan Caldera MD - Discharge Diagnosis/Problem(s) (1) Acute dyspnea SNOMED Code(s): 319578933, 725853961 ICD Code: R06.00 - DYSPNEA, UNSPECIFIED Status: Acute Priority: Low Current Visit: Yes Problem Details: improved/ removed i.v as na 130 start na tabs daily (2) Generalized weakness SNOMED Code(s): 15103675 ICD Code: R53.1 - WEAKNESS Status: Acute Priority: Low Current Visit: Yes Problem Details: improving but still present (3) Hypomagnesemia SNOMED Code(s): 426224783 ICD Code: E83.42 - HYPOMAGNESEMIA Status: Acute Priority: Low Current Visit: Yes Problem Details: resolved (4) Hyponatremia SNOMED Code(s): 51715584 ICD Code: E87.1 - HYPO-OSMOLALITY AND HYPONATREMIA Status: Acute Priority: Medium Current Visit: Yes (5) Volume depletion SNOMED Code(s): 774116919 ICD Code: E86.9 - VOLUME DEPLETION, UNSPECIFIED Status: Acute Priority: Low Current Visit: Yes Problem Details: resolved and i.v dced (6) Weight loss SNOMED Code(s): 09270691, 512777970 ICD Code: R63.4 - ABNORMAL WEIGHT LOSS Status: Acute Priority: Low Current Visit: Yes Problem Details: weight gain in hosp noted approx 6 lbs . non edematous but mild pierre (7) CKD (chronic kidney disease) stage 3, GFR 30-59 ml/min SNOMED Code(s): 349595918 ICD Code: N18.3 - CHRONIC KIDNEY DISEASE, STAGE 3 (MODERATE) Status: Chronic Priority: Low Current Visit: Yes Problem Details: creat stable - Patient Summary/Data Consults: Consultations 11/23/19 12:26 Consult to Case Management/Cello Teacher [CONS] Routine Consult to Spiritual Care [CONS] Routine OT Evaluation and Treatment [CONS] Routine PT Evaluation and Treatment [CONS] Routine 11/23/19 12:29 Consult to Glass Edger [CONS] Routine - Patient Instructions Diet: Usual Diet as Tolerated Driving: Do Not Drive - Discharge Plan *PRESCRIPTION DRUG MONITORING PROGRAM REVIEWED*: Not Applicable *COPY OF PRESCRIPTION DRUG MONITORING REPORT IN PATIENT HEATHER: Not Applicable Prescriptions/Med Rec: Albuterol Sulfate [Proair Hfa] 2 puff INH Q6H PRN #1 device PRN Reason: Shortness Of Breath Albuterol [Proventil HFA] 2 dispenser INH QID PRN #1 inhaler PRN Reason: SOB/Wheezing Sodium Chloride/KCl [Thermotabs] 2 each PO DAILY #60 tablet NS Home Medications: Home Meds Furosemide 20 mg PO DAILY 02/25/19 [History] Lutein/Minerals/Vit A,C & E [I-Jil] 1 tab PO DAILY 02/25/19 [History] Metoprolol Succinate 50 mg PO DAILY 02/25/19 [History] Sennosides/Docusate Sodium [Senna-Docusate Sodium Tablet] 1 - 2 tab PO DAILY 02/25/19 [History] allopurinoL [Zyloprim] 50 mg PO DAILY 02/25/19 [History] Calcium Carbonate [Tums Extra Strength] 750 mg PO ASDIRECTED PRN 11/10/19 [History] Albuterol Sulfate [Proair Hfa] 2 puff INH Q6H PRN #1 device 11/28/19 [Rx] Albuterol [Proventil HFA] 2 dispenser INH QID PRN #1 inhaler 11/28/19 [Rx] Alum Hydrox/Mag Hydrox/Simeth [Mag-Al Plus] 30 ml PO Q8H PRN cup 11/28/19 [Rx] Docusate Sodium/Sennosides [Senna Plus] 1 tab PO DAILY tablet 11/28/19 [Rx] Metoprolol Succinate [Toprol XL 50mg] 50 mg PO DAILY tab.er 11/28/19 [Rx] Sodium Chloride/KCl [Thermotabs] 2 each PO DAILY #60 tablet NS 11/28/19 [Rx] Patient Handouts: Shortness of Breath, Adult, Fmsm-mg-Oztd, Fluid Restriction, Weakness Forms: ED Department Discharge Referrals: Brendan Caldera MD [Primary Care Provider] - - Discharge Summary/Plan Comment DC Time >30 min.: Yes - General Info Date of Service: 11/28/19 Admission Dx/Problem (Free Text: Admission Diagnosis/Problem Admission Diagnosis/Problem Hyponatremia 11/23/2019 79 year old male that was admitted to the floor from the ER where he presented with gradually worsening dyspnea over the 3 days prior to coming to the ER and has a history of cancer x2 years. Reports worsening acute on chronic dyspnea over past few days, cough with clear sputum Reports orthopnea - denies fever, hemoptysis, chest pain History of colon cancer with mets to lung and liver - reports colon and liver are in remission CXR shows multiple pulmonary nodules but nothing acute Not undergoing chemotherapy - reports Dr. Loredo is monitoring No leukocytosis, Sodium 123, BUN 21, Creatinine 1.2, GFR 58, Anion Gap 15.5, Magnesium 1.6, Troponin and BNP WNL, Serum osmolality 262 (likely dilutional hyponatremia) Port accessed in ED History of multiple ED visits for esophageal and bowel related cancers Known lower esophageal stricture Has been on soft diet at home PLAN -IV fluids as directed -Urine osmolality and sodium ordered -Re-check BNP tonight -AM labs -Hold home Lasix -PT/OT -CM/SW consult -Supplement magnesium -AM cortisol and TSH -Will check mycoplasma and strep pneumonia given worsening dyspnea - likely neoplasm related -Droplet Isolation -Continue soft diet here -Glass Edger consult for weight loss and help with meal choices Patient will be admitted observation status with telemetry to the floor for management of hyponatremia and volume depletion. Magnesium will also be supplemented. Overall prognosis is poor given patients significant metastatic disease, weight loss, and overall frail health. 11/24/2019 Sodium 123-->125 BUN 21-->19 Creatinine 1.2-->1.1 GFR 58--> greater than 60 Anion Gap 15.5--> 11.8 Troponin and BNP WNL Serum osmolality 262 Port accessed in ED Magnesium 1.6-->2.2 Mycoplasma negative Urine osmolality 397 Urine Sodium 78 TSH WNL PLAN -IV fluids as directed - Start 3% hypotonic today at 54mL/hr. -Re-check BNP Q4 Hrs -Goal Na of 131 today - not more than 133 -AM labs -Hold home Lasix -PT/OT -CM/SW consult -AM cortisol pending -Strep pneumo pending -Droplet Isolation 11/25/2019 No acute complaints Reports nausea and vomiting x1 episode last night. None since that episode Reports continued dyspnea Last BM yesterday Sodium 123-->125-->123-->125-->126-->127-->128 BUN 21-->19-->18-->21-->19-->21-->19 Creatinine 1.2-->1.1>1.0-->1.1-->1.2 GFR 58--> greater than 60-->58 Anion Gap 15.5--> 11.8-->11.9-->12.0-->15.1-->13.1-->13.9 Troponin and BNP WNL Serum osmolality 262 Port accessed in ED Magnesium 1.6-->2.2-->2.1 Mycoplasma and strep pneumo negative Urine osmolality 397 Urine Sodium 78 TSH WNL PLAN -Re-check BMP today -IV fluids as directed -AM labs -Hold home Lasix -PT/OT -CM/SW consult -AM cortisol pending -Head CT and Abdominal CT to rule out brain and adrenal mets 11/26/2019 States he feels better SOB is improved from admission but is still there BM 11/24 Tolerating diet Sleeping Well Sodium 123-->125-->123-->125-->126-->127-->128--> 130 BUN 21-->19-->18-->21-->19-->21-->19 Creatinine 1.2-->1.1>1.0-->1.1-->1.2 GFR 58--> greater than 60-->58 Anion Gap 15.5--> 11.8-->11.9-->12.0-->15.1-->13.1-->13.9 Troponin and BNP WNL Serum osmolality 262 Port accessed in ED Magnesium 1.6-->2.2-->2.1 Mycoplasma and strep pneumo negative Urine osmolality 397 Urine Sodium 78 TSH WNL No brain metastasis or adrenal lesions PLAN -IV fluids as directed -AM labs -Hold home Lasix -PT/OT -CM/SW consult -AM cortisol pending -Head CT and Abdominal CT to rule out brain and adrenal mets 11/27/2019 Vital signs are stable He is on room air Wearing glasses x1 assist with FWW States that he is doing well He is up in his chair watching TV States that he has a good appetite States that he is sleeping well Discussed continuing soft diet with fluid restrictions Discussed checking labs Discussed discontinuing magnesium hydroxide Discussed possible discharge tomorrow if stable Subjective Update: 11/27/2019 Vital signs are stable He is on room air Wearing glasses x1 assist with FWW States that he is doing well He is up in his chair watching TV States that he has a good appetite States that he is sleeping well Discussed continuing soft diet with fluid restrictions Discussed checking labs Discussed discontinuing magnesium hydroxide Discussed possible discharge tomorrow if stable 11/28/19 doing well on full oral meds and pierre resolved. Functional Status: Reports: Pain Controlled - Review of Systems General: Reports: No Symptoms HEENT: Reports: No Symptoms Pulmonary: Reports: No Symptoms Cardiovascular: Reports: No Symptoms Gastrointestinal: Reports: No Symptoms Genitourinary: Reports: No Symptoms Musculoskeletal: Reports: No Symptoms Skin: Reports: No Symptoms Neurological: Reports: No Symptoms Psychiatric: Reports: No Symptoms - Patient Data Vitals - Most Recent: Last Vital Signs Temp 36.6 C 11/28/19 07:50 Pulse 72 11/28/19 09:46 Resp 22 H 11/28/19 07:50 BP 113/78 11/28/19 09:46 Pulse Ox 96 11/28/19 07:50 Weight - Most Recent: 79.515 kg I&O - Last 24 hours: Intake & Output 11/27/19 11/28/19 11/28/19 22:59 06:59 14:59 Intake Total 1669 300 Output Total 1400 800 Balance 269 -500 Lab Results - Last 24 hrs: Laboratory Results - last 24 hr 11/27/19 11/27/19 11/27/19 Range/Units 05:17 05:25 17:00 Sodium Cancelled 129 L 129 L Potassium Cancelled 4.7 4.8 Chloride Cancelled 99 99 Carbon Dioxide Cancelled 21 22 Anion Gap Cancelled 13.7 12.8 BUN Cancelled 20 H 21 H Creatinine Cancelled 1.1 1.0 Est Cr Clr Drug Dosing Cancelled 51.82 57.00 Estimated GFR (MDRD) Cancelled > 60 > 60 BUN/Creatinine Ratio Cancelled 18.2 H 21.0 H Glucose Cancelled 85 91 Calcium Cancelled 8.2 L 8.3 L Phosphorus 3.3 (2.6-4.7) mg/dL Magnesium 1.8 (1.8-2.4) mg/dl 11/28/19 Range/Units 05:17 Sodium 130 L Potassium 4.5 Chloride 99 Carbon Dioxide 21 Anion Gap 14.5 BUN 20 H Creatinine 1.2 Est Cr Clr Drug Dosing 47.50 Estimated GFR (MDRD) 58 BUN/Creatinine Ratio 16.7 Glucose 88 Calcium 8.1 L Phosphorus (2.6-4.7) mg/dL Magnesium (1.8-2.4) mg/dl Med Orders - Current: Current Medications Acetaminophen (Tylenol) 650 mg PO Q4H PRN PRN Reason: Pain (Mild 1-3)/fever Al Hydroxide/Mg Hydroxide (Mag-Al Plus) 30 ml PO Q8H PRN PRN Reason: Heartburn Last Admin: 11/23/19 22:03 Dose: 30 ml Documented by: Albuterol (Proventil Hfa) 0 gm INH Q2H PRN PRN Reason: SOB/Wheezing Albuterol/Ipratropium (Duoneb 3.0-0.5 Mg/3 Ml) 3 ml NEB Q6HRRT PRN PRN Reason: wheezing/SOB/cough Aspirin (Ecotrin) 325 mg PO BID [facility] Last Admin: 11/28/19 09:46 Dose: 325 mg Documented by: Heparin Sodium (Porcine) (Heparin Lock Flush 100 Units/Ml) 500 units FLUSH ASDIRECTED PRN PRN Reason: deaccess port Metoprolol Succinate (Toprol Xl) 50 mg PO DAILY [facility] Last Admin: 11/28/19 09:46 Dose: 50 mg Documented by: Ondansetron HCl (Zofran) 4 mg IV Q6H PRN PRN Reason: Nausea/Vomiting Last Admin: 11/24/19 21:09 Dose: 4 mg Documented by: Oral Electrolytes (Thermotabs) 2 each PO DAILY [facility] Last Admin: 11/28/19 09:45 Dose: 2 each Documented by: Senna/Docusate Sodium (Senna Plus) 1 tab PO DAILY [facility] Last Admin: 11/28/19 09:46 Dose: 1 tab Documented by: Discontinued Medications Enoxaparin Sodium (Lovenox) 40 mg SUBCUT DAILY [facility] Last Admin: 11/26/19 08:58 Dose: 40 mg Documented by: Sodium Chloride (Normal Saline) 1,000 mls @ 100 [facility] Last Admin: 11/23/19 23:04 Dose: 50 mls/hr Documented by: Magnesium Sulfate 2 gm/ Premix 50 mls @ 25 mls/hr IV ONETIME ONE Stop: 11/23/19 16:38 Last Admin: 11/23/19 15:06 Dose: 25 mls/hr Documented by: Sodium Chloride (Normal Saline) 1,000 mls [facility] Sodium Chloride (Sodium Chloride 3%) 500 mls @ 53 [facility] Stop: 11/24/19 09:01 Sodium Chloride (Sodium Chloride 3%) 500 mls @ 53 mls/hr IV [facility] Stop: 11/24/19 19:00 Last Admin: 11/24/19 10:05 Dose: 53 mls/hr Documented by: Sodium Chloride (Sodium Chloride 3%) 250 mls @ 53 mls/hr IV [facility] Stop: 11/25/19 00:30 Last Admin: 11/24/19 20:33 Dose: 53 mls/hr Documented by: Sodium Chloride (Normal Saline) 1,000 mls @ 50 mls/hr IV [facility] Last Admin: 11/26/19 03:46 Dose: 50 mls/hr Documented by: Sodium Chloride (Normal Saline) 1,000 mls @ 100 [facility] Last Admin: 11/27/19 03:29 Dose: 100 mls/hr Documented by: Magnesium Hydroxide (Milk Of Magnesia) 30 ml PO ONETIME ONE Stop: 11/27/19 09:01 Last Admin: 11/27/19 09:25 Dose: 30 ml Documented by: Magnesium Hydroxide (Milk Of Magnesia) 30 ml PO ONETIME ONE Stop: 11/28/19 09:18 Last Admin: 11/28/19 09:45 Dose: 30 ml Documented by: - Exam General: Reports: Alert, Oriented HEENT: Reports: Pupils Equal, Pupils Reactive, EOMI, Mucous Membr. Moist/[place] Neck: Reports: Supple Lungs: Reports: Clear to Auscultation, Normal Respiratory Effort Cardiovascular: Reports: Regular Rate, Regular Rhythm GI/Abdominal Exam: Normal Bowel Sounds, Soft, Non-Tender, No Organomegaly, No Distention, No Abnormal Bruit, No Mass, Pelvis Stable (Male) Exam: No Hernia, Normal Inspection, Normal Prostate, Circumcised Rectal (Males) Exam: Normal Exam, Normal Rectal Tone, Prostate Normal Back Exam: Reports: Normal Inspection, Full Range of Motion Extremities: Normal Inspection, Normal Range of Motion, Non-Tender, No Pedal Edema, Normal Capillary Refill Skin: Reports: Warm, Dry, Intact Wound/Incisions: Reports: Healing Well Neurological: Reports: No New Focal Deficit Psy/Mental Status: Reports: Alert, Normal Affect, Normal Mood
[2019-11-28 12:18] VITALS: BP 136/90; PULSE 78
== END 2019-11-28 14:10 | disposition home or self-care (01) | DRG 641 ==
LOC: JD.ED 08:10 → JD.MS 12:25 → OBSVTOIN 11-24 09:51
PROVIDERS: ADMIT Pediatrics; ATTEND Pediatrics
PROC: 8E0ZXY6 Isolation (ICD-10-PCS; principal; 2019-11-23)
DX: E87.1 Hypo-osmolality and hyponatremia (principal); R53.1 Weakness; C18.9 Malignant neoplasm of colon, unspecified; C78.00 Secondary malignant neoplasm of unspecified lung; C78.7 Secondary malignant neoplasm of liver and intrahepatic bile duct; D01.0 Carcinoma in situ of colon; H54.7 Unspecified visual loss; E86.9 Volume depletion, unspecified; H40.9 Unspecified glaucoma; Z20.828 Contact with and (suspected) exposure to other viral communicable diseases; N18.9 Chronic kidney disease, unspecified; H35.30 Unspecified macular degeneration; J44.9 Chronic obstructive pulmonary disease, unspecified; K21.9 Gastro-esophageal reflux disease without esophagitis; F32.9 Major depressive disorder, single episode, unspecified; M19.90 Unspecified osteoarthritis, unspecified site; Z92.21 Personal history of antineoplastic chemotherapy; Z98.49 Cataract extraction status, unspecified eye; I12.9 Hypertensive chronic kidney disease with stage 1 through stage 4 chronic kidney disease, or unspecified chronic kidney disease; M72.0 Palmar fascial fibromatosis [Dupuytren]; L40.9 Psoriasis, unspecified; K22.2 Esophageal obstruction; E83.42 Hypomagnesemia; Z79.82 Long term (current) use of aspirin; Z79.899 Other long term (current) drug therapy; R63.4 Abnormal weight loss; R06.00 Dyspnea, unspecified; N18.3 Chronic kidney disease, stage 3 (moderate); Z87.19 Personal history of other diseases of the digestive system; Z90.5 Acquired absence of kidney; Z86.73 Personal history of transient ischemic attack (TIA), and cerebral infarction without residual deficits; Z95.828 Presence of other vascular implants and grafts; Z88.1 Allergy status to other antibiotic agents; Z88.0 Allergy status to penicillin; Z88.2 Allergy status to sulfonamides; Z88.8 Allergy status to other drugs, medicaments and biological substances; Z90.49 Acquired absence of other specified parts of digestive tract; Z87.891 Personal history of nicotine dependence
CPT/HCPCS: 36415 ×2; 71045; 80048; 80053 ×2; 83735 ×2; 83880; 83930; 83935; 84300; 84443; 84484; 84550; 85025 ×2; 85610; 85652; 85730; 86140; 86738; 87899; 93005; 96360; 96361; 97162; 97165; 99285; A9270 ×4; J1650; J3475; J7030 ×2; U0002; 70450; 70450-26; 74150; 74150-26; 84100; 96365; 96366; 96372; 97110-GP; 97112-GP; 97116-GP; 97530-GP; G0378; J1642; J2405; J7040

== ENCOUNTER 2019-12-16 00:47 | Inpatient (IN) | payer MEDICARE, BC ==
--- NOTE | 2019-12-16 00:57 | EDM.PDOC ---
<Artur Schmitz - Last Filed: 12/16/19 08:51> ED HPI GENERAL MEDICAL PROBLEM - General Chief Complaint: Gastrointestinal Problem Stated Complaint: [facility] Time Seen by Provider: 12/16/19 00:56 - History of Present Illness INITIAL COMMENTS - FREE TEXT/NARRATIVE: 79-year-old male presents the emergency room with intractable nausea and vomiting. Patient has been having fairly frequent nausea and vomiting for the last 4 hours. Patient is a significant history of lung cancer with metastatic disease to the liver. This last week he turned yellow and was ultimately sent to [place] by his primary care physician and ultimately had a stent placed in the common bile duct on Saturday. This evening at suppertime he actually ate better than he has in quite a while. However around 9:00 this evening he became very nauseated and started throwing up. He has not had any fevers or chills he has had no chest pain breathing difficulties or shortness of breath. He does not really have any pain at this time just nausea and vomiting. - Related Data Allergies Allergy/AdvReac Type Severity Reaction Status Date / Time azithromycin Allergy Severe Anaphylactic Verified 12/16/19 00:54 Shock gatifloxacin [From Tequin] Allergy Severe Anaphylactic Verified 12/16/19 00:54 Shock lansoprazole [From Prevacid] Allergy Severe Anaphylactic Verified 12/16/19 00:54 Shock Penicillins Allergy Severe Anaphylactic Verified 12/16/19 00:54 Shock omeprazole [From Prilosec] Allergy Mild Cannot Verified 12/16/19 00:54 Remember Sulfa (Sulfonamide Allergy Mild Rash Verified 12/16/19 00:54 Antibiotics) Home Meds: Home Meds Lutein/Minerals/Vit A,C & E [I-Jil] 1 tab PO DAILY 02/25/19 [History] Sennosides/Docusate Sodium [Senna-Docusate Sodium Tablet] 1 - 2 tab PO DAILY 02/25/19 [History] allopurinoL [Zyloprim] 50 mg PO DAILY 02/25/19 [History] Albuterol Sulfate [Proair Hfa] 2 puff INH Q6H PRN #1 device 11/28/19 [Rx] Metoprolol Succinate [Toprol XL 50mg] 50 mg PO DAILY tab.er 11/28/19 [Rx] Aspirin 325 mg PO DAILY 12/16/19 [History] Brimonidine [Alphagan P 0.15% Ophth Soln] 1 drop EYEBOTH BID 12/16/19 [History] Famotidine 10 mg PO BID 12/16/19 [History] Ondansetron [Zofran] 4 mg PO TID PRN 12/16/19 [History] Prochlorperazine Maleate [Compazine] 10 mg PO QID PRN 12/16/19 [History] chlorproMAZINE [Thorazine] 25 mg PO Q6H PRN 12/16/19 [History] dexAMETHasone [Dexamethasone] 8 mg PO DAILY 12/16/19 [History] traMADol [Ultram] 50 mg PO TID PRN 12/16/19 [History] Past Medical History HEENT History: Reports: Glaucoma, Macular Degeneration Other HEENT History: wears eyeglasses, has dentures Cardiovascular History: Reports: Hypertension Respiratory History: Reports: Bronchitis, Recurrent, COPD, SOB Other Respiratory History: stress asthma Gastrointestinal History: Reports: Bowel Obstruction, GERD Other Gastrointestinal History: esophagitis, liver mass, dysphagia, ileus, peg tube placement, small bowel obstruction Genitourinary History: Reports: Chronic Renal Insuffiency, Other (See Below) Other Genitourinary History: Rt nephrectomy [employer] History: Reports: None Musculoskeletal History: Reports: Arthritis Other Musculoskeletal History: dupuytren's contracture Neurological History: Reports: TIA Other Neuro History: ?TIAs many years ago Psychiatric History: Reports: Depression Endocrine/Metabolic History: Reports: None Hematologic History: Reports: None Immunologic History: Reports: None Oncologic (Cancer) History: Reports: Colon, Liver, Lung Other Oncologic History: off of chemo for the past 9 months, with james cath L chest Dermatologic History: Reports: Psoriasis - Infectious Disease History Infectious Disease History: Reports: Measles, Mumps - Past Surgical History Head Surgeries/Procedures: Reports: None HEENT Surgical History: Reports: Cataract Surgery, Naso-Sinus Surgery Cardiovascular Surgical History: Reports: Vascular Surgery Respiratory Surgical History: Reports: Tracheostomy, Other (See Below) GI Surgical History: Reports: Appendectomy, Cholecystectomy, Colon, Colonoscopy, Colostomy, EGD, Other (See Below) Male Surgical History: Reports: Nephrectomy Other Male Surgeries/Procedures: right kidney removed Endocrine Surgical History: Reports: None Neurological Surgical History: Reports: None Musculoskeletal Surgical History: Reports: Other (See Below) Oncologic Surgical History: Reports: Other (See Below) Dermatological Surgical History: Reports: Skin Biopsy Social & Family History - Family History Family Medical History: Noncontributory Cardiac: Reports: CAD, MD GI: Reports: Other (See Below) : Reports: Renal Disease/Insufficiency Endocrine/Metabolic: Reports: Diabetes, type II Other Oncologic Family History: aunt had brain cancer - Caffeine Use Caffeine Use: Reports: Soda Other Caffeine Use: 2 cans/day - Living Situation & Occupation Living situation: Reports: , with Spouse 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) ED ROS GENERAL - Review of Systems Review Of Systems: See Below Constitutional: Reports: No Symptoms HEENT: Reports: No Symptoms Respiratory: Reports: No Symptoms Cardiovascular: Reports: No Symptoms GI/Abdominal: Reports: Nausea, Vomiting. Denies: Abdominal Pain, Constipation, Diarrhea : Reports: No Symptoms Musculoskeletal: Reports: No Symptoms Skin: Reports: No Symptoms Neurological: Reports: No Symptoms ED EXAM, GI/ABD - Physical Exam Exam: See Below Exam Limited By: No Limitations General Appearance: Alert, No Apparent Distress (He does fine until he gets n auseated and then throws up vigorously bringing up bilious material.) Head: Atraumatic, Normocephalic Neck: Normal Inspection, Supple, Non-Tender, Full Range of Motion Respiratory/Chest: No Respiratory Distress, Lungs Clear, Normal Breath Sounds Cardiovascular: Regular Rate, Rhythm, No Edema, No Murmur GI/Abdominal Exam: Normal Bowel Sounds, Soft, Non-Tender Back Exam: Normal Inspection. No: CVA Tenderness (L), CVA Tenderness (R) Extremities: Normal Inspection, No Pedal Edema Course - Re-Assessments/Exams Free Text/Narrative Re-Assessment/Exam: 12/16/19 05:19 I discussed patient's case with Dr. Calle, hospitalist at [facility] in [place] who thought the patient could be cared for here just as well as there. I will however check a abdominal CT to confirm the placement of the biliary stent this was seen on the x-ray and is in the neighborhood, however I cannot confirm that it is in the common bile duct. I was discussing the situation with the patient and he vomited again dark bilious material checked it with Hemoccult and it was Hemoccult positive. I suspect that the patient has significant GI irritation and esophageal irritation from vomiting and this is probably the source of this but this will need to be watched. 12/16/19 08:52 CT was obtained the distal end of the stent is extending into the small bowel. I have a call in to [facility] to either Dr. Hope or whoever is on-call for him and have been waiting for them to get back to me. 12/16/19 09:17 Awaiting for a call back from [facility] apparently Dr. Hope and the on-call physician for him are both in procedures at this time. 12/16/19 09:50 Dr. Hope did return my call and I informed him with the CT looked like and he assured me the stent is functioning well and in normal position. I have a call out to Dr. Guillen to place the patient on observation to continue antinausea and vomiting therapy or pursue further work-up if indicated. 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 Nausea and vomiting Qualifiers: Vomiting type: unspecified Vomiting Intractability: non-intractable Qualified C ode(s): R11.2 - Nausea with vomiting, unspecified - Discharge Information Referrals: PCP,Unknown [Ordering Only Provider] - Forms: ED Department Discharge Sepsis Event Note (ED) - Evaluation Sepsis Screening Result: Possible Sepsis Risk <Lorenzo Freedman - Last Filed: 12/16/19 11:03> Course - Vital Signs Last Recorded V/S: Last Vital Signs Temp 97.3 F 12/16/19 00:50 Pulse 109 H 12/16/19 09:58 Resp 18 12/16/19 09:58 BP 121/71 12/16/19 09:58 Pulse Ox 96 12/16/19 09:58 - Orders/Labs/Meds Orders: Active Orders 24 hr Category Date Time Status Abdomen wo Cont [CT] Stat Exams 12/16/19 05:17 Taken Lactated Ringers [Ringers, Lactated] 1,000 ml Med 12/16/19 01:15 Active IV ASDIRECTED Medication Orders Lactated Ringer's (Ringers, Lactated) 1,000 mls @ 125 mls/hr IV ASDIRECTED [facility] Last Admin: 12/16/19 02:44 Dose: 125 mls/hr Documented by: [id number] Labs: Laboratory Tests 12/16/19 12/16/19 Range/Units 01:19 01:19 WBC 7.72 (4.23-9.07) K/mm3 RBC 4.53 L (4.63-6.08) M/mm3 Hgb 12.3 L D (13.7-17.5) gm/dl Hct 37.7 L (40.1-51.0) % MCV 83.2 (79.0-92.2) fl MCH 27.2 (25.7-32.2) pg MCHC 32.6 (32.2-35.5) g/dl RDW Std Deviation 43.7 (35.1-43.9) fL Plt Count 322 D (163-337) K/mm3 MPV 9.8 (9.4-12.3) fl Neut % (Auto) 74.6 H (34.0-67.9) % Lymph % (Auto) 8.4 L (21.8-53.1) % Dewitt % (Auto) 13.1 H (5.3-12.2) % Eos % (Auto) 3.4 (0.8-7.0) Baso % (Auto) 0.1 (0.1-1.2) % Neut # (Auto) 5.76 H (1.78-5.38) K/mm3 Lymph # (Auto) 0.65 L (1.32-3.57) K/mm3 Dewitt # (Auto) 1.01 H (0.30-0.82) K/mm3 Eos # (Auto) 0.26 (0.04-0.54) K/mm3 Baso # (Auto) 0.01 (0.01-0.08) K/mm3 Manual Slide Review Abnormal smear Sodium 126 L (136-145) mEq/L Potassium 4.9 (3.5-5.1) mEq/L Chloride 91 L (98-107) mEq/L Carbon Dioxide 24 (21-32) mEq/L Anion Gap 15.9 H (5-15) BUN 19 H (7-18) mg/dL Creatinine 1.3 (0.7-1.3) mg/dL Est Cr Clr Drug Dosing 43.85 mL/min Estimated GFR (MDRD) 53 (>60) mL/min BUN/Creatinine Ratio 14.6 (14-18) Glucose 140 H (83-115) mg/dL Calcium 8.9 (8.5-10.1) mg/dL Total Bilirubin 1.3 H (0.2-1.0) mg/dL Direct Bilirubin 0.80 H (0.0-0.2) mg/dl AST 61 H (15-37) U/L ALT 212 H (16-63) U/L Alkaline Phosphatase 449 H (46-116) U/L Total Protein 6.7 (6.4-8.2) g/dl Albumin 2.9 L (3.4-5.0) g/dl Globulin 3.8 gm/dL Albumin/Globulin Ratio 0.8 L (1-2) Lipase 271 (73-393) U/L Meds: Medications Generic Name Dose Route Start Last Admin Trade Name Freq PRN Reason Stop Dose Admin Lactated Ringer's 1,000 mls @ 125 mls/hr 12/16/19 01:15 12/16/19 02:44 Ringers, Lactated IV 125 mls/hr ASDIRECTED [facility] Administration Discontinued Medications Generic Name Dose Route Start Last Admin Trade Name Freq PRN Reason Stop Dose Admin Diphenhydramine HCl 25 mg 12/16/19 05:40 12/16/19 05:49 Benadryl IVPUSH 12/16/19 05:41 25 mg ONETIME ONE Administration Famotidine 20 mg 12/16/19 05:34 12/16/19 05:47 Pepcid IVPUSH 12/16/19 05:35 20 mg ONETIME ONE Administration Lactated Ringer's 500 mls @ 999 mls/hr 12/16/19 01:08 12/16/19 01:20 Ringers, Lactated IV 12/16/19 01:38 999 mls/hr .BOLUS ONE Administration Metoclopramide HCl 5 mg 12/16/19 05:39 12/16/19 05:49 Reglan IVPUSH 12/16/19 05:40 5 mg ONETIME ONE Administration Ondansetron HCl 4 mg 12/16/19 01:08 12/16/19 01:20 Zofran IVPUSH 12/16/19 01:09 4 mg ONETIME ONE Administration Ondansetron HCl 4 mg 12/16/19 02:26 12/16/19 02:29 Zofran IVPUSH 12/16/19 02:27 4 mg ONETIME ONE Administration Ondansetron HCl 4 mg 12/16/19 05:17 12/16/19 05:20 Zofran IVPUSH 12/16/19 05:18 4 mg ONETIME ONE Administration - Re-Assessments/Exams Free Text/Narrative Re-Assessment/Exam: 12/16/19 10:[address]z. [address] Guillen came to see the patient and she will admit. Departure - Departure Time of Disposition: 11:05 Condition: Fair Sepsis Event Note (ED) - Focused Exam Vital Signs: Vital Signs Temp Pulse Resp BP Pulse Ox 12/16/19 09:58 109 H 18 121/71 96 12/16/19 08:37 108 H 16 122/74 96 12/16/19 00:50 97.3 F 110 H 24 H 145/80 H 95
[2019-12-16] MEDS ORDERED: Lactated Ringers 500 ML IV ONE (01:08)
[2019-12-16] MEDS ORDERED: Ondansetron 4 MG/2 ML SDV IVPUSH ONE ×3 (01:08→05:17)
[2019-12-16] MEDS ORDERED: Lactated Ringers 1,000 ML IV SCH (01:15)
[2019-12-16] MEDS ORDERED: Famotidine 20 MG/2 ML SDV IVPUSH ONE (05:34)
[2019-12-16] MEDS ORDERED: Metoclopramide 10 MG/2 ML SDV IVPUSH ONE (05:39)
[2019-12-16] MEDS ORDERED: diphenhydrAMINE 50 MG/ML SDV IVPUSH ONE (05:40)
--- NOTE | 2019-12-16 06:04 | CR ---
Abdomen: Supine and upright views of the abdomen were obtained. Scattered gas within colon and small bowel is noted. Findings have the appearance of ileus rather than obstruction. Multiple pulmonary masses are noted within the chest. Biliary stent appears to be present. Multiple surgical clips seen within the upper abdomen. Mild vascular calcification is seen. Degenerative change noted within the right hip and scattered within the spine. Impression: 1. Scattered gas within small bowel and colon most likely representing ileus. 2. Multiple pulmonary masses. 3. Other nonacute findings as noted above. Diagnostic code #3 This report was dictated in MDT
[2019-12-16] MEDS ORDERED: Promethazine 12.5 MG in Sodium Chloride 0.9% 50 ML IV PRN (11:15)
[2019-12-16] MEDS: Sodium Chloride 0.9% 1,000 ML IV SCH ×4 (11:54→23:46)
[2019-12-16] MEDS: Ondansetron 4 MG/2 ML SDV IV SCH ×4 (12:05→23:48)
--- NOTE | 2019-12-16 19:14 | PCM.HP.2 ---
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 As per patient nausea and vomiting started yesterday around 9 PM, once he noticed it was not improving at all but only getting worse he decided to come to the emergency department. States vomiting was mainly biliary content, denies blood Associated with generalized abdominal pain graded at a 5-7 out of 10 Decreased oral intake Last meal was yesterday at noon Had obstructive jaundice secondary to liver metastases for which he was referred to [facility] and biliary stent was placed on Saturday - Related Data Allergies/Adverse Reactions: Allergies Allergy/AdvReac Type Severity Reaction Status Date / Time azithromycin Allergy Severe Anaphylactic Verified 12/16/19 11:55 Shock gatifloxacin [From Tequin] Allergy Severe Anaphylactic Verified 12/16/19 11:55 Shock lansoprazole [From Prevacid] Allergy Severe Anaphylactic Verified 12/16/19 11:55 Shock Penicillins Allergy Severe Anaphylactic Verified 12/16/19 11:55 Shock omeprazole [From Prilosec] Allergy Mild Cannot Verified 12/16/19 11:55 Remember Sulfa (Sulfonamide Allergy Mild Rash Verified 12/16/19 11:55 Antibiotics) Home Medications: Home Meds Lutein/Minerals/Vit A,C & E [I-Jil] 1 tab PO DAILY 02/25/19 [History] allopurinoL [Zyloprim] 50 mg PO DAILY 02/25/19 [History] Metoprolol Succinate [Toprol XL 50mg] 50 mg PO DAILY tab.er 11/28/19 [Rx] Albuterol Sulfate [Proair Hfa] 2 puff INH Q4HR PRN 12/16/19 [History] Aspirin 325 mg PO DAILY 12/16/19 [History] Brimonidine [Alphagan P 0.15% Ophth Soln] 1 drop EYEBOTH Q12HR 12/16/19 [History] Famotidine 10 mg PO BID 12/16/19 [History] Furosemide [Lasix] 20 mg PO DAILY 12/16/19 [History] Ondansetron [Zofran] 4 mg PO TID PRN 12/16/19 [History] Prochlorperazine Maleate [Compazine] 10 mg PO QID PRN 12/16/19 [History] Sodium Chloride/KCl [Thermotabs] 2 tab PO DAILY 12/16/19 [History] chlorproMAZINE [Thorazine] 25 mg PO Q6H PRN 12/16/19 [History] Past Medical History HEENT History: Reports: Glaucoma, Macular Degeneration Other HEENT History: wears eyeglasses, has upper and lower dentures Cardiovascular History: Reports: Hypertension Respiratory History: Reports: COPD, SOB Other Respiratory History: stress asthma Gastrointestinal History: Reports: Bowel Obstruction, GERD Other Gastrointestinal History: esophagitis, liver mass, dysphagia, ileus, peg tube placement, small bowel obstruction Genitourinary History: Reports: Chronic Renal Insuffiency, Other (See Below) Other Genitourinary History: Rt nephrectomy [employer] History: Reports: None Musculoskeletal History: Reports: Arthritis Other Musculoskeletal History: dupuytren's contracture Neurological History: Reports: TIA Other Neuro History: TIAs Psychiatric History: Reports: Depression Endocrine/Metabolic History: Reports: None Hematologic History: Reports: None Immunologic History: Reports: None Oncologic (Cancer) History: Reports: Colon, Liver, Lung Other Oncologic History: off of chemo for the past 9 months, with james cath L chest Dermatologic History: Reports: Psoriasis - Infectious Disease History Infectious Disease History: Reports: Measles, Mumps - Past Surgical History Head Surgeries/Procedures: Reports: None HEENT Surgical History: Reports: Cataract Surgery, Naso-Sinus Surgery Respiratory Surgical History: Reports: Tracheostomy GI Surgical History: Reports: Appendectomy, Cholecystectomy, Colon, Colonoscopy, Colostomy, EGD, Other (See Below) Male Surgical History: Reports: Nephrectomy Other Male Surgeries/Procedures: right kidney removed Endocrine Surgical History: Reports: None Neurological Surgical History: Reports: None Musculoskeletal Surgical History: Reports: Other (See Below) Dermatological Surgical History: Reports: Skin Biopsy Social & Family History - Family History Family Medical History: Noncontributory Cardiac: Reports: CAD, GA GI: Reports: Other (See Below) : Reports: Renal Disease/Insufficiency Endocrine/Metabolic: Reports: Diabetes, type II Other Oncologic Family History: aunt had brain cancer - Tobacco Use Smoking Status *Q: Former Smoker Used Tobacco, but Quit: Yes Month/Year Tobacco Last Used: 1999 - Caffeine Use Caffeine Use: Reports: None Other Caffeine Use: 2 cans/day - Recreational Drug Use Recreational Drug Use: No - Living Situation & Occupation Living situation: Reports: , with Spouse 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) H&P Review of Systems - Review of Systems: Review Of Systems: See Below General: Reports: Fever, Chills, Malaise, Weakness, Fatigue, Decreased Appetite. Denies: Night Sweats, Diaphoresis HEENT: Denies: Post Nasal Drip, Sinus Congestion, Sore Throat, Vertigo, Visual Changes Pulmonary: Denies: Shortness of Breath, Wheezing, Pleuritic Chest Pain, Cough, Sputum, Hemoptysis Cardiovascular: Denies: Chest Pain, Palpitations, Dyspnea on Exertion, Orthopnea, PND, Edema, Lightheadedness, Syncope Gastrointestinal: Reports: Abdominal Pain, Anorexia, Decreased Appetite, Nausea, Vomiting. Denies: Black Stool, Bloody Stool, Constipation, Diarrhea, Difficulty Swallowing, Distension, Flatus, Hematemesis, Hematochezia, Melena, Mucous in Stool Genitourinary: Denies: Dysuria, Frequency, Burning, Pain, Urgency, Incontinence Musculoskeletal: Denies: Joint Pain, Joint Swelling, Muscle Pain, Muscle Stiffness Skin: Denies: Cyanosis, Jaundice, Mottled, Pallor Psychiatric: Denies: Confusion, Depression, Mood Lability, Anxiety Neurological: Denies: Dizziness, Headache, Numbness Hematologic/Lymphatic: Denies: Easy Bleeding, Easy Bruising Exam - Exam Exam: See Below - Vital Signs Vital Signs: Last Vital Signs Temp 99.1 F 12/16/19 15:49 Pulse 105 H 12/16/19 15:49 Resp 20 12/16/19 15:49 BP 134/70 12/16/19 15:49 Pulse Ox 90 L 12/16/19 15:49 Weight: 77.292 kg - Exam General: Alert, Oriented, Cooperative, Mild Distress HEENT: Conjunctiva Clear, EACs Clear, EOMI, Hearing Intact, Mucosa Moist & [place] Neck: Supple, Trachea Midline, +2 Carotid Pulse wo Bruit, Full Range of Motion. No: Lymphadenopathy Lungs: Normal Respiratory Effort, Decreased Breath Sounds. No: Crackles, Rales, Rhonchi, Rub, Stridor Cardiovascular: Regular Rate, Regular Rhythm. No: Systolic Murmur, Diastolic Murmur, Rubs, Gallop/S3, Gallop/S4 GI/Abdominal Exam: Normal Bowel Sounds, Soft, Non-Tender, Distended. No: Guarding, Rigid, Rebound Extremities: Normal Inspection, Normal Range of Motion, Non-Tender, No Pedal Edema, Normal Capillary Refill Peripheral Pulses: 2+: Radial (L), Radial (R), Dorsalis Pedis (L), Dorsalis P [place] (R) Skin: Warm, Dry, Intact - Patient Data Result Diagrams: 12/17/19 03:00 12/17/19 03:00 Sepsis Event Note - Evaluation Sepsis Screening Result: No Definite Risk - Problem List (1) History of biliary stent insertion SNOMED Code(s): 292037128 ICD Code: Z98.890 - OTHER SPECIFIED POSTPROCEDURAL STATES Status: Acute Current Visit: Yes (2) Abdominal cramps SNOMED Code(s): 502538137, 908342555 ICD Code: R10.9 - UNSPECIFIED ABDOMINAL PAIN Status: Acute Current Visit: No (3) Abdominal pain SNOMED Code(s): 73734643 ICD Code: R10.9 - UNSPECIFIED ABDOMINAL PAIN Status: Acute Priority: High Current Visit: No Qualifiers: Abdominal location: generalized Qualified Code(s): R10.84 - Generalized abdominal pain (4) CKD (chronic kidney disease) stage 3, GFR 30-59 ml/min SNOMED Code(s): 036424481 ICD Code: N18.3 - CHRONIC KIDNEY DISEASE, STAGE 3 (MODERATE) Status: Chronic Priority: Low Current Visit: No Problem Details: creat stable (5) History of right nephrectomy SNOMED Code(s): 18020903784152 ICD Code: Z90.5 - ACQUIRED ABSENCE OF KIDNEY Status: Chronic Priority: Medium Current Visit: No (6) Hypertension SNOMED Code(s): 42486928 ICD Code: I10 - ESSENTIAL (PRIMARY) HYPERTENSION Status: Chronic Priority: Medium Current Visit: No Qualifiers: Hypertension type: essential hypertension Qualified Code(s): I10 - Essential (primary) hypertension (7) Metastases to the liver Status: Acute Current Visit: Yes (8) Nausea and vomiting SNOMED Code(s): 90137040 ICD Code: R11.2 - NAUSEA WITH VOMITING, UNSPECIFIED Status: Acute Current Visit: Yes Qualifiers: Vomiting type: unspecified Vomiting Intractability: non-intractable Qualified Code(s): R11.2 - Nausea with vomiting, unspecified (9) Port-A-Cath in place SNOMED Code(s): 812842826 ICD Code: Z95.828 - PRESENCE OF OTHER VASCULAR IMPLANTS AND GRAFTS Status: Chronic Priority: Medium Current Visit: No (10) Volume depletion SNOMED Code(s): 885299736 ICD Code: E86.9 - VOLUME DEPLETION, UNSPECIFIED Status: Acute Priority: Low Current Visit: No Problem Details: resolved and i.v dced (11) Weight loss SNOMED Code(s): 24962161, 257315210 ICD Code: R63.4 - ABNORMAL WEIGHT LOSS Status: Acute Priority: Low Current Visit: No Problem Details: weight gain in hosp noted approx 6 lbs . non edematous but mild pierre (12) Gouty arthritis SNOMED Code(s): 43738293 ICD Code: M10.9 - GOUT, UNSPECIFIED Status: Acute Current Visit: Yes (13) Esophageal stricture SNOMED Code(s): 85832616 ICD Code: K22.2 - ESOPHAGEAL OBSTRUCTION Status: Chronic Priority: Medium Current Visit: No (14) Acute kidney injury SNOMED Code(s): 46857390, 13983742 ICD Code: N17.9 - ACUTE KIDNEY FAILURE, UNSPECIFIED Status: Acute Current Visit: Yes (15) Normocytic normochromic anemia SNOMED Code(s): 25178571 ICD Code: D64.9 - ANEMIA, UNSPECIFIED Status: Acute Current Visit: Yes (16) Abnormal LFTs (liver function tests) SNOMED Code(s): 504775041 ICD Code: R94.5 - ABNORMAL RESULTS OF LIVER FUNCTION STUDIES Status: Acute Current Visit: Yes Problem List Initiated/Reviewed/Updated: Yes Assessment/Plan Comment:: ASSESSMENT 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 earlier this year Started having obstructive jaundice around a month ago--> biliary stent placed 4 days ago -No immediate complications Usual state of health until yesterday evening when he started having severe nausea accompanied by vomiting, constantly Describes content as bile-like Associated with inability to tolerate oral intake and indigestion Denies blood, abdominal pain Last bowel movement yesterday in the morning Fever and chills 2 nights ago, did not get specific measurement--> resolved on its own Once he noticed no improvement he decided to come to the emergency department for further evaluation Has been getting more tired and weak lately with decreased appetite Once in the emergency department Given multiple doses of Zofran, minimal improvement Started on IV fluid repletion with LR, received 2 L Upright and supine abdominal x-rays Scattered gas within small bowel and colon, most likely representing ileus Multiple pulmonary masses Multiple surgical clips within the upper abdomen Degenerative changes in the right hip CT abdomen was performed: Biliary stent with distal end terminating within bowel and proximal and terminating in approximate area of the common hepatic duct Mild intrahepatic biliary air is seen as well as a small amount of extrahepatic biliary air Numerous metastatic nodules within the chest Vague low-density area noted within the inferior liver suspicious of liver metastases Cysts within the left kidney Right kidney is absent Atherosclerotic calcification within the aorta and iliac branches Atrophic pancreas Scattered degenerative changes within the spine 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 Scattered lucencies within the spine, stable from prior images, metastatic disease Developed abdominal pain described as cramps and bloating 1 hour prior to my evaluation Lab tests Hb 12.3 with Hct 37.7 - Normocytic normochromic anemia GFR 53, baseline >60 Na 126, hypovolemia Albumin 2.9 AP-449, AST 212, ALT 61, T bili 1.3, direct bili 0.8 -Mixed hepatobiliary and cholestatic pattern, more likely to be cholestatic - R value 2.01 (mixed 2-5, cholestatic <2) Heavy smoker for 40 years, 1 pack a day, quit 20 years ago No recent gouty attacks Mental health: PHQ2:2/2 GAD2: 2/2 No active suicidal or homicidal ideations PLAN Intractable nausea and vomiting Abdominal cramping BASSAM s/s Volume depletion Primary lung cancer with metastatic disease to liver Biliary obstruction s/p biliary stent insertion (12/11) Recurrent SBO History of esophageal strictures s/p dilation IVF repletion with NS Scheduled Zofran NPO Monitor I/Os Renally dosed medications Monitor VS Hypertension Hold home medications Gouty arthritis Uric acid level Weight loss Dietary evaluation PROPHYLAXIS: DVT- compression stockings GI- not indicated CODE STATUS: DNR/DNI DISPOSITION: PAtient will be admitted to medical floor for IVF repletion diet advancement and hemodynamic stabilization. - Mortality Measure Prognosis:: Poor (Metastatic neoplasm)
[2019-12-16] MEDS ORDERED: Acetaminophen 325 MG Tab PO PRN (21:42)
[2019-12-17] MEDS: Ondansetron 4 MG/2 ML SDV IV SCH ×4 (01:04→17:30)
[2019-12-17] MEDS: Sodium Chloride 0.9% 1,000 ML IV SCH (03:31)
--- NOTE | 2019-12-17 08:57 | CT ---
CT abdomen Technique: Multiple axial sections were obtained from above the dome of the diaphragm inferiorly to the iliac crests. Intravenous and oral contrast was not utilized. Comparison: Previous CT abdomen of 11/25/19. Findings: Biliary stent is seen. Distal end terminates within bowel. Proximal end terminates within the approximate CHD. Surgical clips are noted from prior cholecystectomy. Intrahepatic biliary air is noted. Small amount of extrahepatic biliary air is also noted. Numerous metastatic nodules are seen within the chest. Vague low density area noted within the inferior liver suspicious for liver metastasis. Cysts are noted within the left kidney. Atherosclerotic calcification is noted within the aortoiliac arteries. Pancreas is atrophied showing no discrete abnormality. Right kidney is not seen presumably from prior nephrectomy. Bone window settings were reviewed. Scattered degenerative change is noted within the spine. Unilateral spondylolytic defect noted at L5-S1. Scattered lucencies are seen within the spine which appear fairly stable from prior study compatible with metastatic osseous disease. Impression: 1. Biliary stent with distal end terminating within bowel and proximal end terminating in the approximate area of the CHD. Mild intrahepatic biliary air is seen as well as a small amount of extrahepatic biliary air. 2. Findings of metastatic disease as noted above, which are felt to be fairly stable from previous study. Diagnostic code #9 This report was dictated in MDT MTDD
[2019-12-17] MEDS: Metoprolol Succinate 50 MG Tab.ER PO SCH (11:27)
[2019-12-17] MEDS ORDERED: Albuterol 6.7 GM Inhaler INH PRN (11:45)
[2019-12-17] MEDS ORDERED: chlorproMAZINE 25 MG Tab PO PRN (11:45)
[2019-12-17] MEDS ORDERED: Levalbuterol HCl 1.25 MG/3 ML Neb NEB PRN (13:05)
--- NOTE | 2019-12-17 13:36 | PCM.PN ---
- General Info Date of Service: 12/17/19 Subjective Update: Had some trouble sleeping No more nausea or vomiting episodes SOB at baseline Wants to try clear liquid diet BM today - Patient Data Vitals - Most Recent: Last Vital Signs Temp 99.0 F 12/17/19 11:25 Pulse 94 12/17/19 11:27 Resp 24 H 12/17/19 11:25 BP 155/83 H 12/17/19 11:27 Pulse Ox 95 12/17/19 11:25 Weight - Most Recent: 78.471 kg - Exam General: Alert, Oriented, Cooperative, No Acute Distress HEENT: Pupils Equal, Pupils Reactive, Mucous Membr. Moist/[place] Neck: Supple, Trachea Midline, No JVD, No Thyromegaly, +2 Carotid Pulse wo Bruit. No: Lymphadenopathy Lungs: Normal Respiratory Effort, Decreased Breath Sounds, Crackles. No: Rales, Rhonchi, Rub, Stridor, Wheezing Cardiovascular: Regular Rate, Regular Rhythm. No: Murmurs, Gallops, Rubs GI/Abdominal Exam: Normal Bowel Sounds, Soft, Non-Tender, Distended Back Exam: Normal Inspection. No: CVA Tenderness (L), CVA Tenderness (R) Extremities: Normal Inspection, Non-Tender, No Pedal Edema Peripheral Pulses: 2+: Radial (L), Radial (R), Dorsalis Pedis (L), Dorsalis Pedis (R) Skin: Warm, Dry Neurological: No New Focal Deficit Sepsis Event Note - Evaluation Sepsis Screening Result: No Definite Risk - Problem List & Annotations (1) Nausea and vomiting SNOMED Code(s): 35878643 Code(s): R11.2 - NAUSEA WITH VOMITING, UNSPECIFIED Status: Acute Current Visit: Yes Qualifiers: Vomiting type: unspecified Vomiting Intractability: non-intractable Qualified Code(s): R11.2 - Nausea with vomiting, unspecified (2) Volume depletion SNOMED Code(s): 482505743 Code(s): E86.9 - VOLUME DEPLETION, UNSPECIFIED Status: Acute Priority: Low Current Visit: No Annotation/Comment:: resolved and i.v dced (3) Abdominal cramps SNOMED Code(s): 404490932, 661398091 Code(s): R10.9 - UNSPECIFIED ABDOMINAL PAIN Status: Acute Current Visit: No (4) Abdominal pain SNOMED Code(s): 03449340 Code(s): R10.9 - UNSPECIFIED ABDOMINAL PAIN Status: Acute Priority: High Current Visit: No Qualifiers: Abdominal location: generalized Qualified Code(s): R10.84 - Generalized abdominal pain (5) History of biliary stent insertion SNOMED Code(s): 942663348 Code(s): Z98.890 - OTHER SPECIFIED POSTPROCEDURAL STATES Status: Acute Current Visit: Yes (6) CKD (chronic kidney disease) stage 3, GFR 30-59 ml/min SNOMED Code(s): 197237351 Code(s): N18.3 - CHRONIC KIDNEY DISEASE, STAGE 3 (MODERATE) Status: Chronic Priority: Low Current Visit: No Annotation/Comment:: creat stable (7) History of right nephrectomy SNOMED Code(s): 62288799546328 Code(s): Z90.5 - ACQUIRED ABSENCE OF KIDNEY Status: Chronic Priority: Medium Current Visit: No (8) Hypertension SNOMED Code(s): 78837531 Code(s): I10 - ESSENTIAL (PRIMARY) HYPERTENSION Status: Chronic Priority: Medium Current Visit: No Qualifiers: Hypertension type: essential hypertension Qualified Code(s): I10 - Essential (primary) hypertension (9) Metastases to the liver Status: Acute Current Visit: Yes (10) Port-A-Cath in place SNOMED Code(s): 914605055 Code(s): Z95.828 - PRESENCE OF OTHER VASCULAR IMPLANTS AND GRAFTS Status: Chronic Priority: Medium Current Visit: No (11) Weight loss SNOMED Code(s): 00298480, 504318241 Code(s): R63.4 - ABNORMAL WEIGHT LOSS Status: Acute Priority: Low Current Visit: No Annotation/Comment:: weight gain in hosp noted approx 6 lbs . non edematous but mild pierre - Problem List Review Problem List Initiated/Reviewed/Updated: Yes - Assessment Assessment:: 12/16/19 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 earlier this year Started having obstructive jaundice around a month ago--> biliary stent placed 4 days ago -No immediate complications Usual state of health until yesterday evening when he started having severe nausea accompanied by vomiting, constantly Describes content as bile-like Associated with inability to tolerate oral intake and indigestion Denies blood, abdominal pain Last bowel movement yesterday in the morning Fever and chills 2 nights ago, did not get specific measurement--> resolved on its own Once he noticed no improvement he decided to come to the emergency department for further evaluation Has been getting more tired and weak lately with decreased appetite Once in the emergency department Given multiple doses of Zofran, minimal improvement Started on IV fluid repletion with LR, received 2 L Upright and supine abdominal x-rays Scattered gas within small bowel and colon, most likely representing ileus Multiple pulmonary masses Multiple surgical clips within the upper abdomen Degenerative changes in the right hip CT abdomen was performed: Biliary stent with distal end terminating within bowel and proximal and terminating in approximate area of the common hepatic duct Mild intrahepatic biliary air is seen as well as a small amount of extrahepatic biliary air Numerous metastatic nodules within the chest Vague low-density area noted within the inferior liver suspicious of liver metastases Cysts within the left kidney Right kidney is absent Atherosclerotic calcification within the aorta and iliac branches Atrophic pancreas Scattered degenerative changes within the spine 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 Scattered lucencies within the spine, stable from prior images, metastatic disease Developed abdominal pain described as cramps and bloating 1 hour prior to my evaluation Lab tests Hb 12.3 with Hct 37.7 - Normocytic normochromic anemia GFR 53, baseline >60 Na 126, hypovolemia Albumin 2.9 AP-449, AST 212, ALT 61, T bili 1.3, direct bili 0.8 -Mixed hepatobiliary and cholestatic pattern, more likely to be cholestatic - R value 2.01 (mixed 2-5, cholestatic <2) Heavy smoker for 40 years, 1 pack a day, quit 20 years ago No recent gouty attacks Mental health: PHQ2:2/2 GAD2: 2/2 No active suicidal or homicidal ideations Admitted with IVF repletion with NS Scheduled Zofran Hold home medications 12/17/19 VS trend: - BP 121-145/71-80 - HR 102-108 - Tmax 99.9 - SatO2 > 90% on RA Labs - Na up from 126 to 132 - GFR stable at 52 - Hb down from 12.3 to 9.4 (likely dilutional as patient has no signs of blood loss) BM today UO: 700 since admission - Plan Plan:: Intractable nausea and vomiting, improving Abdominal cramping, improving Acute kidney injury, stable Primary lung cancer with metastatic disease to liver Biliary obstruction s/p biliary stent insertion (12/11) Recurrent SBO History of esophageal strictures s/p dilation IVF repletion with NS Scheduled Zofran Advance diet to clear liquids Monitor I/Os Renally dosed medications Monitor VS Hypertension Restart home metoprolol - PRN Hydralazine Gouty arthritis Uric acid level Weight loss Weakness Dietary evaluation, pending PT evaluation Volume depletion, resolved PROPHYLAXIS: DVT- compression stockings GI- not indicated CODE STATUS: DNR/DNI DISPOSITION: Patient will remain admitted to medical floor for IVF repletion diet advancement.
[2019-12-17] MEDS ORDERED: Iopamidol 755 Mg/ML 100 ML Bottle IVPUSH ONE (14:38)
[2019-12-17] MEDS ORDERED: Sodium Chloride 0.9% 100 ML IV SCH (14:45)
--- NOTE | 2019-12-17 15:31 | CT ---
CT chest Technique: Multiple axial sections through the chest were obtained. Intravenous contrast was utilized. Comparison: Prior CT chest of 12/03/19. Findings: Trace right-sided pleural effusion and small left-sided pleural effusion is seen. Biliary stent is noted. Numerous pulmonary masses are seen. Mild adenopathy is seen mostly within the subcarinal region. Aorta shows atherosclerotic change without aneurysm. Pulmonary arteries show no discrete filling defects to indicate pulmonary embolism. Coronary artery calcification is seen. No acute parenchymal process is appreciated. Bone window settings were reviewed which shows scattered degenerative change within the spine. Impression: 1. Numerous pulmonary masses. Small bilateral pleural effusions. 2. No findings of pulmonary embolism. 3. Nothing acute is otherwise appreciated on CT study of the chest. Diagnostic code #9 This report was dictated in MDT
--- NOTE | 2019-12-17 15:32 | PCM.SN.2 ---
- Free Text/Narrative Note: History is extensive and information is unclear for which extensive chart review was performed and records were requested from Dr. 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 Pathological stage of T3N2B or stage IIIb Postop anastomotic leak with subsequent ileostomy Subsequent pneumonia with respiratory failure, ICU stay of over 60 days Tracheostomy and PEG tube No adjuvant chemotherapy Ostomy takedown 09/10/201306/04: CT with 2 new liver masses suspicious for metastatic disease, CEA was 21 08/02: Liver biopsy revealed metastatic moderately differentiated colon adenocarcinoma positive for KRAS mutation Started on FOLFOX, imaging after cycle #2 with stable disease -09/02: developed abdominal pain at the ostomy site after cycle 2 Chemo was interrupted Imaging showed thickening and inflammation of the anastomotic site Colonoscopy negative for malignancies 09/2015; PET scan after 4 cycles with good response of liver and lung lesions 10/2015: peripheral neuropathy, 2 weeks stopping chemotherapy Chemotherapy 08/15//: 4 cycles of FOLFOX 8 10/14/2015: PET scan with good response to liver and lung lesions -16 4 cycles of FOLFOX plus Avastin without oxaliplatin 01/11/2016: CT chest abdomen pelvis with decrease of hepatic masses and stable 1.1 cm left upper lo lung nodule 02/15/2016 fifth cycle of 5-FU without of Avastin 02/28/2016 6 cycle of 5-FU without Avastin 03/05/2016 disease progression with omental nodules 03/2016 cycle 1 and 2 of FOLFIRI 2017 Diagnosed with lung cancer 2019: Diagnosed with metastatic lung disease Discussed options of Sunil and the Danele[place] with oncologist, patient declined chemo at that time May: Lung lesions continue to grow over the past 2 months does not want treatment unless he absolutely has to Options are regorafenib days 1 through 21 every 28 days or [id number] twice a day on days 1 through 5, 8-12 and every 28 days Patient declined chemotherapy 9 months ago -->Metastatic liver disease GI HISTORY: Multiple EGDs 01/2017: Esophageal stricture dilation 2018: food impaction with biopsies--> no Hart's esophagus 2019: Food impaction, no Hart's 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 05/2013: Colectomy /2 anastomotic leak after colon resection for colon cancer--> takedown 08/1013 PULMONARY HISTORY 2013 Prolonged ICU admission after anastomotic leak during colectomy--> tracheostomy placed Lung cancer diagnosed in 2017 underwent chemotherapy Not oxygen dependent at home Recent admission from to [facility] Complaining of jaundice for couple of days, sent by oncologist to ER No radiographic evidence of obstruction 12/11: ERCP with biliary sphincterotomy with 1 covered metal stent placed in the common bile duct Which revealed a single severe biliary stricture down in the lower third of the main bile duct Stricture appeared malignant
[2019-12-17] MEDS ORDERED: hydrALAZINE 20 MG/ML SDV IVPUSH PRN (18:30)
[2019-12-18] MEDS: Ondansetron 4 MG/2 ML SDV IV SCH ×3 (00:01→12:02)
[2019-12-18] MEDS: Brimonidine 0.2% Ophth Soln 5 ML Bottle EYEBOTH SCH ×4 (00:01→20:12)
[2019-12-18] MEDS: Multivitamins with Minerals/Folic Acid/Lutein/Zeaxanth Tab PO SCH (08:31)
[2019-12-18] MEDS: Furosemide 20 MG Tab PO SCH (08:31)
[2019-12-18] MEDS: Metoprolol Succinate 50 MG Tab.ER PO SCH (08:31)
[2019-12-18] MEDS: Aspirin 325 MG Tab.EC PO SCH (08:31)
--- NOTE | 2019-12-18 14:05 | PCM.PN ---
- General Info Date of Service: 12/18/19 Admission Dx/Problem (Free Text): Admission Diagnosis/Problem Admission Diagnosis/Problem Nausea and vomiting Subjective Update: Patient is feeling much better this morning. He was able to tolerate a liquid breakfast and lunch. He is having less nausea this morning. Functional Status: Reports: Pain Controlled - Review of Systems General: Reports: No Symptoms HEENT: Reports: No Symptoms Pulmonary: Reports: No Symptoms Cardiovascular: Reports: No Symptoms Gastrointestinal: Reports: No Symptoms Musculoskeletal: Reports: No Symptoms Psychiatric: Reports: No Symptoms - Patient Data Vitals - Most Recent: Last Vital Signs Temp 98.4 F 12/18/19 11:22 Pulse 76 12/18/19 11:22 Resp 20 12/18/19 11:22 BP 174/82 H 12/18/19 11:22 Pulse Ox 94 L 12/18/19 11:22 Weight - Most Recent: 79.515 kg I&O - Last 24 Hours: Intake & Output 12/17/19 12/18/19 12/18/19 22:59 06:59 14:59 Intake Total 1778 0 Output Total 375 800 Balance 1403 -800 Lab Results Last 24 Hours: Laboratory Results - last 24 hr 12/18/19 12/18/19 12/18/19 Range/Units 08:26 08:26 08:26 WBC 9.09 H (4.23-9.07) K/mm3 RBC 4.18 L (4.63-6.08) M/mm3 Hgb 11.2 L D (13.7-17.5) gm/dl Hct 35.7 L (40.1-51.0) % MCV 85.4 (79.0-92.2) fl MCH 26.8 (25.7-32.2) pg MCHC 31.4 L (32.2-35.5) g/dl RDW Std Deviation 43.8 (35.1-43.9) fL Plt Count 311 (163-337) K/mm3 MPV 9.7 (9.4-12.3) fl Neut % (Auto) 78.0 H (34.0-67.9) % Lymph % (Auto) 8.4 L (21.8-53.1) % Mckean % (Auto) 8.9 (5.3-12.2) % Eos % (Auto) 4.3 (0.8-7.0) Baso % (Auto) 0.2 (0.1-1.2) % Neut # (Auto) 7.09 H (1.78-5.38) K/mm3 Lymph # (Auto) 0.76 L (1.32-3.57) K/mm3 Mckean # (Auto) 0.81 (0.30-0.82) K/mm3 Eos # (Auto) 0.39 (0.04-0.54) K/mm3 Baso # (Auto) 0.02 (0.01-0.08) K/mm3 Manual Slide Review Abnormal smear Sodium 133 L (136-145) mEq/L Potassium 4.5 (3.5-5.1) mEq/L Chloride 99 (98-107) mEq/L Carbon Dioxide 19 L (21-32) mEq/L Anion Gap 19.5 H (5-15) BUN 18 (7-18) mg/dL Creatinine 1.2 (0.7-1.3) mg/dL Est Cr Clr Drug Dosing 47.50 mL/min Estimated GFR (MDRD) 58 (>60) mL/min BUN/Creatinine Ratio 15.0 (14-18) Glucose 63 L (83-115) mg/dL Uric Acid 5.9 (3.5-7.2) mg/dL Calcium 8.5 (8.5-10.1) mg/dL Phosphorus 3.7 (2.6-4.7) mg/dL Magnesium 1.9 (1.8-2.4) mg/dl Total Bilirubin 1.0 (0.2-1.0) mg/dL AST 31 (15-37) U/L ALT 104 H (16-63) U/L Alkaline Phosphatase 305 H (46-116) U/L Total Protein 6.1 L (6.4-8.2) g/dl Albumin 2.5 L (3.4-5.0) g/dl Globulin 3.6 gm/dL Albumin/Globulin Ratio 0.7 L (1-2) Med Orders - Current: Current Medications Acetaminophen (Tylenol) 650 mg PO Q4H PRN PRN Reason: Pain/Fever Aspirin (Ecotrin) 325 mg PO DAILY HSANNON Last Admin: 12/18/19 08:31 Dose: 325 mg Documented by: Brimonidine Tartrate (Alphagan 0.2% Ophth Soln) 0 ml EYEBOTH Q12HR [facility] Last Admin: 12/18/19 08:34 Dose: 1 drop Documented by: Chlorpromazine HCl (Thorazine) 25 mg PO Q6H PRN PRN Reason: Hiccups Furosemide (Lasix) 20 mg PO DAILY [facility] Last Admin: 12/18/19 08:31 Dose: 20 mg Documented by: Hydralazine HCl (Apresoline) 10 mg IVPUSH Q2H PRN PRN Reason: Hypertension Promethazine HCl 12.5 mg/ (Sodium Chloride) 50.5 mls @ 100 mls/hr IV Q6H PRN PRN Reason: Nausea/Vomiting Last Admin: 12/17/19 13:22 Dose: 100 mls/hr Documented by: Levalbuterol HCl (Xopenex) 1.25 mg NEB TIDRT PRN PRN Reason: Wheezing Metoprolol Succinate (Toprol Xl) 50 mg PO DAILY [facility] Last Admin: 12/18/19 08:31 Dose: 50 mg Documented by: Ondansetron HCl (Zofran) 4 mg IV Q6H [facility] Last Admin: 12/18/19 12:02 Dose: 4 mg Documented by: Vit A/Vit C/Vit E/Selen/Cu/Zn/Lutei (Icaps Mv) 1 tab PO DAILY [facility] Last Admin: 12/18/19 08:31 Dose: 1 tab Documented by: Discontinued Medications Albuterol (Proventil Hfa) gm INH Q4HR PRN PRN Reason: Shortness of Breath Diphenhydramine HCl (Benadryl) 25 mg IVPUSH ONETIME ONE Stop: 12/16/19 05:41 Last Admin: 12/16/19 05:49 Dose: 25 mg Documented by: Famotidine (Pepcid) 20 mg IVPUSH ONETIME ONE Stop: 12/16/19 05:35 Last Admin: 12/16/19 05:47 Dose: 20 mg Documented by: Lactated Ringer's (Ringers, Lactated) 500 mls @ 999 mls/hr IV .BOLUS ONE Stop: 12/16/19 01:38 Last Admin: 12/16/19 01:20 Dose: 999 mls/hr Documented by: Lactated Ringer's (Ringers, Lactated) 1,000 mls @ 125 mls/hr IV ASDIRECTED [facility]ANNON Last Admin: 12/16/19 02:44 Dose: 125 mls/hr Documented by: Sodium Chloride (Normal Saline) 1,000 mls @ 250 mls/hr IV ASDIRECTED [facility] Last Admin: 12/17/19 03:31 Dose: 250 mls/hr Documented by: Sodium Chloride (Normal Saline) 100 mls @ 60 mls/hr IV ASDIRECTED [facility] Last Admin: 12/17/19 15:14 Dose: 60 mls/hr Documented by: Iopamidol (Isovue-370 (76%)) 100 ml IVPUSH ONETIME ONE Stop: 12/17/19 14:39 Last Admin: 12/17/19 14:44 Dose: 100 ml Documented by: Metoclopramide HCl (Reglan) 5 mg IVPUSH ONETIME ONE Stop: 12/16/19 05:40 Last Admin: 12/16/19 05:49 Dose: 5 mg Documented by: Ondansetron HCl (Zofran) 4 mg IVPUSH ONETIME ONE Stop: 12/16/19 01:09 Last Admin: 12/16/19 01:20 Dose: 4 mg Documented by: Ondansetron HCl (Zofran) 4 mg IVPUSH ONETIME ONE Stop: 12/16/19 02:27 Last Admin: 12/16/19 02:29 Dose: 4 mg Documented by: Ondansetron HCl (Zofran) 4 mg IVPUSH ONETIME ONE Stop: 12/16/19 05:18 Last Admin: 12/16/19 05:20 Dose: 4 mg Documented by: - Exam General: Alert, Oriented HEENT: Pupils Equal, Mucous Membr. Moist/[place] Neck: Supple Lungs: Clear to Auscultation, Normal Respiratory Effort Cardiovascular: Regular Rate, Regular Rhythm GI/Abdominal Exam: Normal Bowel Sounds, Soft, No Organomegaly, No Distention, No Abnormal Bruit, No Mass, Pelvis Stable, Tender (Diffuse tenderness worse in the right epigastrium without guarding or rebound.) Extremities: Normal Inspection, Normal Range of Motion, Non-Tender, No Pedal Edema, Normal Capillary Refill Skin: Warm, Dry, Intact Psy/Mental Status: Alert, Normal Affect, Normal Mood Sepsis Event Note - Evaluation Sepsis Screening Result: No Definite Risk - Focused Exam Vital Signs: Vital Signs Temp Pulse Resp BP Pulse Ox 12/18/19 11:22 98.4 F 76 20 174/82 H 94 L 12/18/19 08:36 100 93 L 12/18/19 08:31 86 173/87 H 12/18/19 07:28 98.4 F 86 20 173/87 H 96 12/18/19 05:17 98.6 F 85 22 H 173/82 H 95 Date Exam was Performed: 12/18/19 Time Exam was Performed: 16:31 - Problem List Review Problem List Initiated/Reviewed/Updated: Yes - My Orders Last 24 Hours: My Active Orders 12/18/19 Breakfast Clear Liquid Diet [DIET] 12/18/19 08:37 Incentive Spirometry [RT Incentive Spirometry] [RC] Q2HWA - Assessment Assessment:: 12/16/19 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 earlier this year Started having obstructive jaundice around a month ago--> biliary stent placed 4 days ago -No immediate complications Usual state of health until yesterday evening when he started having severe nausea accompanied by vomiting, constantly Describes content as bile-like Associated with inability to tolerate oral intake and indigestion Denies blood, abdominal pain Last bowel movement yesterday in the morning Fever and chills 2 nights ago, did not get specific measurement--> resolved on its own Once he noticed no improvement he decided to come to the emergency department for further evaluation Has been getting more tired and weak lately with decreased appetite Once in the emergency department Given multiple doses of Zofran, minimal improvement Started on IV fluid repletion with LR, received 2 L Upright and supine abdominal x-rays Scattered gas within small bowel and colon, most likely representing ileus Multiple pulmonary masses Multiple surgical clips within the upper abdomen Degenerative changes in the right hip CT abdomen was performed: Biliary stent with distal end terminating within bowel and proximal and terminating in approximate area of the common hepatic duct Mild intrahepatic biliary air is seen as well as a small amount of extrahepatic biliary air Numerous metastatic nodules within the chest Vague low-density area noted within the inferior liver suspicious of funmilayo er metastases Cysts within the left kidney Right kidney is absent Atherosclerotic calcification within the aorta and iliac branches Atrophic pancreas Scattered degenerative changes within the spine 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 Scattered lucencies within the spine, stable from prior images, metastatic disease Developed abdominal pain described as cramps and bloating 1 hour prior to my evaluation Lab tests Hb 12.3 with Hct 37.7 - Normocytic normochromic anemia GFR 53, baseline >60 Na 126, hypovolemia Albumin 2.9 AP-449, AST 212, ALT 61, T bili 1.3, direct bili 0.8 -Mixed hepatobiliary and cholestatic pattern, more likely to be cholestatic - R value 2.01 (mixed 2-5, cholestatic <2) Heavy smoker for 40 years, 1 pack a day, quit 20 years ago No recent gouty attacks Mental health: PHQ2:2/2 GAD2: 2/2 No active suicidal or homicidal ideations Admitted with IVF repletion with NS Scheduled Zofran Hold home medications 12/17/19 VS trend: - BP 121-145/71-80 - HR 102-108 - Tmax 99.9 - SatO2 > 90% on RA Labs - Na up from 126 to 132 - GFR stable at 52 - Hb down from 12.3 to 9.4 (likely dilutional as patient has no signs of blood loss) BM today UO: 700 since admission 12/18/2019 Vital sign trend * Blood pressure 170s over 80s * Heart rate 80s to 100 * T-max 98.8 * SPO2 94% on room air, requiring 1 L overnight Labs * Sodium 133 * GFR 58 * Hemoglobin 11.2 * AST 31, ALT 104, alkaline phosphatase 305 * Uric acid 5.9 Patient is improving and tolerating a liquid diet. Liver enzymes improved - Plan Plan:: Intractable nausea and vomiting, improving Abdominal cramping, improving Acute kidney injury, stable Primary lung cancer with metastatic disease to liver Biliary obstruction s/p biliary stent insertion (12/11) Recurrent SBO History of esophageal strictures s/p dilation Stop IVF Change Zofran to as needed Advance diet to clear liquids, continue to advance as tolerated Monitor I/Os and blood pressure Renally dosed medications Monitor VS Hypertension Restart home metoprolol -Monitor blood pressure - PRN Hydralazine Gouty arthritis Uric acid level 5.9 Weight loss Weakness Dietary evaluation PT evaluation Volume depletion, resolved PROPHYLAXIS: DVT- compression stockings GI- not indicated CODE STATUS: DNR/DNI DISPOSITION: Patient will remain admitted to medical floor for IVF repletion diet advancement.
[2019-12-18] MEDS: guaiFENesin 600 MG Tab.ER PO SCH ×2 (17:54→20:02)
[2019-12-18] MEDS: Ondansetron 4 MG/2 ML SDV IVPUSH PRN (19:56)
[2019-12-18] MEDS: Famotidine 10 MG Tab PO SCH (20:11)
[2019-12-18] MEDS ORDERED: Calcium Carbonate 500 MG Tab.Chew PO PRN (20:36)
[2019-12-18] MEDS ORDERED: Metoprolol Succinate 50 MG Tab.ER PO SCH (21:00)
[2019-12-19] MEDS ORDERED: Magnesium Sulfate/Water 2 GM in Premix Bag 1 BAG IV ONE (08:15)
[2019-12-19] MEDS ORDERED: Metoprolol Succinate 50 MG Tab.ER PO SCH (09:00)
[2019-12-19] MEDS: Multivitamins with Minerals/Folic Acid/Lutein/Zeaxanth Tab PO SCH (09:04)
[2019-12-19] MEDS: Aspirin 325 MG Tab.EC PO SCH (09:04)
[2019-12-19] MEDS: Famotidine 10 MG Tab PO SCH ×3 (09:04→22:23)
[2019-12-19] MEDS: Furosemide 20 MG Tab PO SCH (09:05)
[2019-12-19] MEDS: Brimonidine 0.2% Ophth Soln 5 ML Bottle EYEBOTH SCH (09:05)
--- NOTE | 2019-12-19 09:47 | PCM.PN ---
- General Info Date of Service: 12/19/19 Admission Dx/Problem (Free Text): Admission Diagnosis/Problem Admission Diagnosis/Problem Nausea and vomiting Subjective Update: Patient states he is feeling better this morning. He had an episode of nausea last night after getting Mucinex. That has resolved. He states he is ready to improve or increase his diet. He states he cannot generally eat full regular food because he gets stuck and he is unable to digest it. He is able to eat cereal. - Review of Systems General: Reports: No Symptoms HEENT: Reports: No Symptoms Pulmonary: Reports: No Symptoms Cardiovascular: Reports: No Symptoms Gastrointestinal: Reports: No Symptoms Musculoskeletal: Reports: No Symptoms Neurological: Reports: No Symptoms Psychiatric: Reports: No Symptoms - Patient Data Vitals - Most Recent: Last Vital Signs Temp 98.2 F 12/19/19 08:29 Pulse 84 12/19/19 09:04 Resp 28 H 12/19/19 03:59 BP 173/80 H 12/19/19 09:04 Pulse Ox 92 L 12/19/19 08:29 Weight - Most Recent: 78.154 kg I&O - Last 24 Hours: Intake & Output 12/18/19 12/19/19 12/19/19 22:59 06:59 14:59 Intake Total 1940 100 Output Total 550 375 Balance 1390 -275 Lab Results Last 24 Hours: Laboratory Results - last 24 hr 12/19/19 Range/Units 05:50 Sodium 136 (136-145) mEq/L Potassium 4.0 (3.5-5.1) mEq/L Chloride 102 (98-107) mEq/L Carbon Dioxide 25 (21-32) mEq/L Anion Gap 13.0 (5-15) BUN 15 (7-18) mg/dL Creatinine 1.1 (0.7-1.3) mg/dL Est Cr Clr Drug Dosing 51.82 mL/min Estimated GFR (MDRD) > 60 (>60) mL/min BUN/Creatinine Ratio 13.6 L (14-18) Glucose 89 (83-115) mg/dL Calcium 7.8 L (8.5-10.1) mg/dL Magnesium 1.7 L (1.8-2.4) mg/dl Med Orders - Current: Current Medications Acetaminophen (Tylenol) 650 mg PO Q4H PRN PRN Reason: Pain/Fever Aspirin (Ecotrin) 325 mg PO DAILY [facility] [place] Last Admin: 12/19/19 09:04 Dose: 325 mg Documented by: Brimonidine Tartrate (Alphagan 0.2% Ophth Soln) 0 ml EYEBOTH DAILY [facility] [place] Last Admin: 12/19/19 09:05 Dose: 1 drop Documented by: Calcium Carbonate/Glycine (Tums) 1,000 mg PO Q2H PRN PRN Reason: Indigestion Last Admin: 12/18/19 21:22 Dose: 1,000 mg Documented by: Chlorpromazine HCl (Thorazine) 25 mg PO Q6H PRN PRN Reason: Hiccups Famotidine (Pepcid) 10 mg PO BID [facility] [place] Last Admin: 12/19/19 09:16 Dose: Not Given Documented by: Furosemide (Lasix) 20 mg PO DAILY [facility] [place] Last Admin: 12/19/19 09:05 Dose: 20 mg Documented by: Hydralazine HCl (Apresoline) 10 mg IVPUSH Q2H PRN PRN Reason: Hypertension Promethazine HCl 12.5 mg/ (Sodium Chloride) 50.5 mls @ 100 mls/hr IV Q6H PRN PRN Reason: Nausea/Vomiting Last Admin: 12/17/19 13:22 Dose: 100 mls/hr Documented by: Magnesium Sulfate 2 gm/ Premix 50 mls @ 25 mls/hr IV ONETIME ONE Stop: 12/19/19 10:14 Last Admin: 12/19/19 09:06 Dose: 25 mls/hr Documented by: Levalbuterol HCl (Xopenex) 1.25 mg NEB TIDRT PRN PRN Reason: Wheezing Metoprolol Succinate (Toprol Xl) 50 mg PO DAILY [facility] [place] Last Admin: 12/19/19 09:04 Dose: 50 mg Documented by: Ondansetron HCl (Zofran) 4 mg IVPUSH Q6H PRN PRN Reason: Nausea/Vomiting Last Admin: 12/18/19 19:56 Dose: 4 mg Documented by: Vit A/Vit C/Vit E/Selen/Cu/Zn/Lutei (Icaps Mv) 1 tab PO DAILY [facility] [place] Last Admin: 12/19/19 09:04 Dose: 1 tab Documented by: Discontinued Medications Albuterol (Proventil Hfa) gm INH Q4HR PRN PRN Reason: Shortness of Breath Brimonidine Tartrate (Alphagan 0.2% Ophth Soln) 0 ml EYEBOTH Q12HR [facility] [place] Last Admin: 12/18/19 20:12 Dose: Not Given Documented by: Diphenhydramine HCl (Benadryl) 25 mg IVPUSH ONETIME ONE Stop: 12/16/19 05:41 Last Admin: 12/16/19 05:49 Dose: 25 mg Documented by: Famotidine (Pepcid) 20 mg IVPUSH ONETIME ONE Stop: 12/16/19 05:35 Last Admin: 12/16/19 05:47 Dose: 20 mg Documented by: Guaifenesin (Mucinex) 600 mg PO BID [facility] [place] Last Admin: 12/18/19 20:02 Dose: Not Given Documented by: Lactated Ringer's (Ringers, Lactated) 500 mls @ 999 mls/hr IV .BOLUS ONE Stop: 12/16/19 01:38 Last Admin: 12/16/19 01:20 Dose: 999 mls/hr Documented by: Lactated Ringer's (Ringers, Lactated) 1,000 mls @ 125 mls/hr IV ASDIRECTED [facility] [place] Last Admin: 12/16/19 02:44 Dose: 125 mls/hr Documented by: Sodium Chloride (Normal Saline) 1,000 mls @ 250 mls/hr IV ASDIRECTED [facility] [place] Last Admin: 12/17/19 03:31 Dose: 250 mls/hr Documented by: Sodium Chloride (Normal Saline) 100 mls @ 60 mls/hr IV ASDIRECTED [facility] [place] Last Admin: 12/17/19 15:14 Dose: 60 mls/hr Documented by: Iopamidol (Isovue-370 (76%)) 100 ml IVPUSH ONETIME ONE Stop: 12/17/19 14:39 Last Admin: 12/17/19 14:44 Dose: 100 ml Documented by: Metoclopramide HCl (Reglan) 5 mg IVPUSH ONETIME ONE Stop: 12/16/19 05:40 Last Admin: 12/16/19 05:49 Dose: 5 mg Documented by: Metoprolol Succinate (Toprol Xl) 50 mg PO DAILY [facility] [place] Last Admin: 12/18/19 08:31 Dose: 50 mg Documented by: Metoprolol Succinate (Toprol Xl) 50 mg PO BEDTIME [facility] [place] Ondansetron HCl (Zofran) 4 mg IVPUSH ONETIME ONE Stop: 12/16/19 01:09 Last Admin: 12/16/19 01:20 Dose: 4 mg Documented by: Ondansetron HCl (Zofran) 4 mg IVPUSH ONETIME ONE Stop: 12/16/19 02:27 Last Admin: 12/16/19 02:29 Dose: 4 mg Documented by: Ondansetron HCl (Zofran) 4 mg IVPUSH ONETIME ONE Stop: 12/16/19 05:18 Last Admin: 12/16/19 05:20 Dose: 4 mg Documented by: Ondansetron HCl (Zofran) 4 mg IV Q6H [facility] Last Admin: 12/18/19 12:02 Dose: 4 mg Documented by: - Exam Quality Assessment: No: Supplemental Oxygen General: Alert, Oriented HEENT: Pupils Equal Neck: Supple Lungs: Clear to Auscultation, Normal Respiratory Effort Cardiovascular: Regular Rate, Regular Rhythm GI/Abdominal Exam: Normal Bowel Sounds, Soft, Non-Tender, No Organomegaly, No Distention Extremities: Normal Inspection, Normal Range of Motion, Non-Tender, No Pedal Edema, Normal Capillary Refill Skin: Warm, Dry, Intact Neurological: No New Focal Deficit Psy/Mental Status: Alert, Normal Affect, Normal Mood Sepsis Event Note - Evaluation Sepsis Screening Result: No Definite Risk - Focused Exam Vital Signs: Vital Signs Temp Pulse Resp BP Pulse Ox 12/19/19 09:04 84 173/80 H 12/19/19 08:29 98.2 F 84 173/80 H 92 L 12/19/19 03:59 98.8 F 90 28 H 178/71 H 92 L Date Exam was Performed: 12/19/19 Time Exam was Performed: 11:06 - Problem List & Annotations (1) History of biliary stent insertion SNOMED Code(s): 475188992 Code(s): Z98.890 - OTHER SPECIFIED POSTPROCEDURAL STATES Status: Acute Current Visit: Yes (2) Metastases to the liver Status: Acute Current Visit: Yes (3) Nausea and vomiting SNOMED Code(s): 88563822 Code(s): R11.2 - NAUSEA WITH VOMITING, UNSPECIFIED Status: Acute Current Visit: Yes Qualifiers: Vomiting type: unspecified Vomiting Intractability: non-intractable Qualified Code(s): R11.2 - Nausea with vomiting, unspecified (4) Abdominal pain SNOMED Code(s): 86056754 Code(s): R10.9 - UNSPECIFIED ABDOMINAL PAIN Status: Acute Priority: High Current Visit: No Qualifiers: Abdominal location: generalized Qualified Code(s): R10.84 - Generalized abdominal pain - Problem List Review Problem List Initiated/Reviewed/Updated: Yes - My Orders Last 24 Hours: My Active Orders 12/18/19 16:54 Ondansetron [Zofran] 4 mg IVPUSH Q6H PRN 12/18/19 17:51 Overnight Pulse Oximetry [RC] Click to Edit 12/18/19 20:36 Calcium Carbonate [Tums] 1,000 mg PO Q2H PRN 12/18/19 21:00 Famotidine [Pepcid] 10 mg PO BID 12/19/19 08:15 Magnesium Sulfate/Water [Magnesium Sulfate in Water Premix] 2 gm Premix Bag 1 bag IV ONETIME 12/19/19 09:00 Brimonidine [Alphagan 0.2% Ophth Soln] 0 ml EYEBOTH DAILY Metoprolol Succinate [Toprol XL] 50 mg PO DAILY 12/19/19 Lunch Regular Diet [DIET] - Assessment Assessment:: 12/16/19 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 earlier this year Started having obstructive jaundice around a month ago--> biliary stent placed 4 days ago -No immediate complications Usual state of health until yesterday evening when he started having severe nausea accompanied by vomiting, constantly Describes content as bile-like Associated with inability to tolerate oral intake and indigestion Denies blood, abdominal pain Last bowel movement yesterday in the morning Fever and chills 2 nights ago, did not get specific measurement--> resolved on its own Once he noticed no improvement he decided to come to the emergency department for further evaluation Has been getting more tired and weak lately with decreased appetite Once in the emergency department Given multiple doses of Zofran, minimal improvement Started on IV fluid repletion with LR, received 2 L Upright and supine abdominal x-rays Scattered gas within small bowel and colon, most likely representing ileus Multiple pulmonary masses Multiple surgical clips within the upper abdomen Degenerative changes in the right hip CT abdomen was performed: Biliary stent with distal end terminating within bowel and proximal and terminating in approximate area of the common hepatic duct Mild intrahepatic biliary air is seen as well as a small amount of extra hepatic biliary air Numerous metastatic nodules within the chest Vague low-density area noted within the inferior liver suspicious of liver metastases Cysts within the left kidney Right kidney is absent Atherosclerotic calcification within the aorta and iliac branches Atrophic pancreas Scattered degenerative changes within the spine 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 Scattered lucencies within the spine, stable from prior images, metastatic disease Developed abdominal pain described as cramps and bloating 1 hour prior to my evaluation Lab tests Hb 12.3 with Hct 37.7 - Normocytic normochromic anemia GFR 53, baseline >60 Na 126, hypovolemia Albumin 2.9 AP-449, AST 212, ALT 61, T bili 1.3, direct bili 0.8 -Mixed hepatobiliary and cholestatic pattern, more likely to be cholestatic - R value 2.01 (mixed 2-5, cholestatic <2) Heavy smoker for 40 years, 1 pack a day, quit 20 years ago No recent gouty attacks Mental health: PHQ2:2/2 GAD2: 2/2 No active suicidal or homicidal ideations Admitted with IVF repletion with NS Scheduled Zofran Hold home medications 12/17/19 VS trend: - BP 121-145/71-80 - HR 102-108 - Tmax 99.9 - SatO2 > 90% on RA Labs - Na up from 126 to 132 - GFR stable at 52 - Hb down from 12.3 to 9.4 (likely dilutional as patient has no signs of blood loss) BM today UO: 700 since admission 12/18/2019 Vital sign trend * Blood pressure 170s over 80s * Heart rate 80s to 100 * T-max 98.8 * SPO2 94% on room air, requiring 1 L overnight Labs * Sodium 133 * GFR 58 * Hemoglobin 11.2 * AST 31, ALT 104, alkaline phosphatase 305 * Uric acid 5.9 Patient is improving and tolerating a liquid diet. Liver enzymes improved 12/19/2019 * Blood pressure is still in the 170 systolic. May need to increase metoprolol. * Heart rate in the 80s * T-max 98.8 * SPO2 92% and above on room air Labs * Sodium normalized to 136 * Creatinine 1.3 * GFR greater than 60 * Magnesium 1.7 Patient continues to improve. He is ready to increase his diet. He did have some episodes of nausea last night when he took Mucinex but has resolved. - Plan Plan:: Intractable nausea and vomiting, improving Abdominal cramping, improving Acute kidney injury, stable Primary lung cancer with metastatic disease to liver Biliary obstruction s/p biliary stent insertion (12/11) Recurrent SBO History of esophageal strictures s/p dilation Stop IVF Change Zofran to as needed Advance diet to regular Monitor I/Os and blood pressure Renally dosed medications Monitor VS -Stop Mucinex Hypertension Increase Toprol-XL to 75 mg daily -Monitor blood pressure - PRN Hydralazine Gouty arthritis Uric acid level 5.9 Weight loss Weakness Dietary evaluation -done PT evaluation -done Volume depletion, resolved PROPHYLAXIS: DVT- compression stockings GI- not indicated CODE STATUS: DNR/DNI DISPOSITION: Patient will remain admitted to medical floor for IVF repletion diet advancement. Length of stay greater than 96 hours secondary to slow resolution of nausea.
[2019-12-19] MEDS ORDERED: Metoprolol Succinate 25 MG Tab.ER PO ONE (11:09)
[2019-12-19] MEDS ORDERED: Magnesium Hydroxide 400 MG/5 ML Susp 30 ML Cup PO ONE (16:13)
[2019-12-20] MEDS: Ondansetron 4 MG/2 ML SDV IVPUSH PRN (03:16)
[2019-12-20] MEDS: Famotidine 10 MG Tab PO SCH (08:41)
[2019-12-20] MEDS: Aspirin 325 MG Tab.EC PO SCH (08:41)
[2019-12-20] MEDS: Multivitamins with Minerals/Folic Acid/Lutein/Zeaxanth Tab PO SCH (08:46)
[2019-12-20] MEDS: Furosemide 20 MG Tab PO SCH (08:46)
[2019-12-20] MEDS: Brimonidine 0.2% Ophth Soln 5 ML Bottle EYEBOTH SCH (08:46)
[2019-12-20] MEDS ORDERED: Metoprolol Succinate 50 MG Tab.ER PO SCH (09:00)
[2019-12-20] MEDS ORDERED: Allopurinol 100 MG Tab PO SCH (09:00)
--- NOTE | 2019-12-20 11:35 | PCM.DCSUM1 ---
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 As per patient nausea and vomiting started yesterday around 9 PM, once he noti dal[place] it was not improving at all but only getting worse he decided to come to the emergency department. States vomiting was mainly biliary content, denies blood Associated with generalized abdominal pain graded at a 5-7 out of 10 Decreased oral intake Last meal was yesterday at noon Had obstructive jaundice secondary to liver metastases for which he was referred to [facility] and biliary stent was placed on Saturday ASSESSMENT 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 earlier this year Started having obstructive jaundice around a month ago--> biliary stent placed 4 days ago -No immediate complications Usual state of health until yesterday evening when he started having severe nausea accompanied by vomiting, constantly Describes content as bile-like Associated with inability to tolerate oral intake and indigestion Denies blood, abdominal pain Last bowel movement yesterday in the morning Fever and chills 2 nights ago, did not get specific measurement--> resolved on its own Once he noticed no improvement he decided to come to the emergency department for further evaluation Has been getting more tired and weak lately with decreased appetite Once in the emergency department Given multiple doses of Zofran, minimal improvement Started on IV fluid repletion with LR, received 2 L Upright and supine abdominal x-rays Scattered gas within small bowel and colon, most likely representing ileus Multiple pulmonary masses Multiple surgical clips within the upper abdomen Degenerative changes in the right hip CT abdomen was performed: Biliary stent with distal end terminating within bowel and proximal and terminating in approximate area of the common hepatic duct Mild intrahepatic biliary air is seen as well as a small amount of extrahepatic biliary air Numerous metastatic nodules within the chest Vague low-density area noted within the inferior liver suspicious of liver metastases Cysts within the left kidney Right kidney is absent Atherosclerotic calcification within the aorta and iliac branches Atrophic pancreas Scattered degenerative changes within the spine 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 Scattered lucencies within the spine, stable from prior images, metastatic disease Developed abdominal pain described as cramps and bloating 1 hour prior to my evaluation Lab tests Hb 12.3 with Hct 37.7 - Normocytic normochromic anemia GFR 53, baseline >60 Na 126, hypovolemia Albumin 2.9 AP-449, AST 212, ALT 61, T bili 1.3, direct bili 0.8 -Mixed hepatobiliary and cholestatic pattern, more likely to be cholestatic - R value 2.01 (mixed 2-5, cholestatic <2) Heavy smoker for 40 years, 1 pack a day, quit 20 years ago No recent gouty attacks Mental health: PHQ2:2/2 GAD2: 2/2 No active suicidal or homicidal ideations PLAN Intractable nausea and vomiting Abdominal cramping BASSAM s/s Volume depletion Primary lung cancer with metastatic disease to liver Biliary obstruction s/p biliary stent insertion (12/11) Recurrent SBO History of esophageal strictures s/p dilation IVF repletion with NS Scheduled Zofran NPO Monitor I/Os Renally dosed medications Monitor VS Hypertension Hold home medications Gouty arthritis Uric acid level Weight loss Dietary evaluation Diagnosis: Stroke: No - Discharge Data Discharge Date: 12/20/19 Discharge Disposition: Home, W Home Health Agency 06 Condition: Fair - Referral to Home Health Date of Face to Face Encounter: 12/20/19 Reason for Homebound Status: Pt is currently homebound related to being walker dependent, decreased activity tolerance, and a decreased level of endurance. Primary Care Physician: Brendan Caldera MD Skilled Need: Face to Face meeting with pt and or family. Pt has metastases to liver, carcinoma of colon, gouty arthritis and acute kidney injury. Pt is in need Home Health Care services for; low activity tolerance, functional mobility, standing balance, strength, transfers. Nursing for vitals, skilled assessment, disease education, disease management. Physical therapy for pt for balance training, gait training, therapeutic exercises, and safety education. Occupational therapy for activity tolerance, self-care training, ADLs and t/f training. Pt will be followed by his primary provider, Dr. Caldera. - Discharge Diagnosis/Problem(s) (1) History of biliary stent insertion SNOMED Code(s): 128947145 ICD Code: Z98.890 - OTHER SPECIFIED POSTPROCEDURAL STATES Status: Acute Current Visit: Yes (2) Metastases to the liver Status: Acute Current Visit: Yes (3) Nausea and vomiting SNOMED Code(s): 18516847 ICD Code: R11.2 - NAUSEA WITH VOMITING, UNSPECIFIED Status: Acute Current Visit: Yes Qualifiers: Vomiting type: unspecified Vomiting Intractability: non-intractable Qualified Code(s): R11.2 - Nausea with vomiting, unspecified (4) Abdominal pain SNOMED Code(s): 32290154 ICD Code: R10.9 - UNSPECIFIED ABDOMINAL PAIN Status: Acute Priority: High Current Visit: No Qualifiers: Abdominal location: generalized Qualified Code(s): R10.84 - Generalized abdominal pain - Patient Summary/Data Consults: Consultations 12/17/19 10:02 Consult to Physical Therapy [PT Evaluation and Treatment] [CONS] Routine Hospital Course: 12/16/19 -day of admission 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 earlier this year Started having obstructive jaundice around a month ago--> biliary stent placed 4 days ago -No immediate complications Usual state of health until yesterday evening when he started having severe nausea accompanied by vomiting, constantly Describes content as bile-like Associated with inability to tolerate oral intake and indigestion Denies blood, abdominal pain Last bowel movement yesterday in the morning Fever and chills 2 nights ago, did not get specific measurement--> resolved on its own Once he noticed no improvement he decided to come to the emergency department for further evaluation Has been getting more tired and weak lately with decreased appetite Once in the emergency department Given multiple doses of Zofran, minimal improvement Started on IV fluid repletion with LR, received 2 L Upright and supine abdominal x-rays Scattered gas within small bowel and colon, most likely representing ileus Multiple pulmonary masses Multiple surgical clips within the upper abdomen Degenerative changes in the right hip CT abdomen was performed: Biliary stent with distal end terminating within bowel and proximal and terminating in approximate area of the common hepatic duct Mild intrahepatic biliary air is seen as well as a small amount of extrahepatic biliary air Numerous metastatic nodules within the chest Vague low-density area noted within the inferior liver suspicious of liver metastases Cysts within the left kidney Right kidney is absent Atherosclerotic calcification within the aorta and iliac branches Atrophic pancreas Scattered degenerative changes within the spine 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 Scattered lucencies within the spine, stable from prior images, metas tatic disease Developed abdominal pain described as cramps and bloating 1 hour prior to my evaluation Lab tests Hb 12.3 with Hct 37.7 - Normocytic normochromic anemia GFR 53, baseline >60 Na 126, hypovolemia Albumin 2.9 AP-449, AST 212, ALT 61, T bili 1.3, direct bili 0.8 -Mixed hepatobiliary and cholestatic pattern, more likely to be cholestatic - R value 2.01 (mixed 2-5, cholestatic <2) Heavy smoker for 40 years, 1 pack a day, quit 20 years ago No recent gouty attacks Mental health: PHQ2:2/2 GAD2: 2/2 No active suicidal or homicidal ideations Admitted with IVF repletion with NS Scheduled Zofran Hold home medications 12/17/19 VS trend: - BP 121-145/71-80 - HR 102-108 - Tmax 99.9 - SatO2 > 90% on RA Labs - Na up from 126 to 132 - GFR stable at 52 - Hb down from 12.3 to 9.4 (likely dilutional as patient has no signs of blood loss) BM today UO: 700 since admission 12/18/2019 Vital sign trend * Blood pressure 170s over 80s * Heart rate 80s to 100 * T-max 98.8 * SPO2 94% on room air, requiring 1 L overnight Labs * Sodium 133 * GFR 58 * Hemoglobin 11.2 * AST 31, ALT 104, alkaline phosphatase 305 * Uric acid 5.9 Patient is improving and tolerating a liquid diet. Liver enzymes improved 12/19/2019 * Blood pressure is still in the 170 systolic. May need to increase metoprolol. * Heart rate in the 80s * T-max 98.8 * SPO2 92% and above on room air Labs * Sodium normalized to 136 * Creatinine 1.3 * GFR greater than 60 * Magnesium 1.7 Patient continues to improve. He is ready to increase his diet. He did have some episodes of nausea last night when he took Mucinex but has resolved. 12/20/2019day of discharge * Blood pressure continues in the 170s systolic. * Metoprolol was increased to 75 mg daily. * Heart rate is in the 60s to low 80s. * SPO2 97% on room air * Sodium did decrease to 132 overnight. Recommend restarting his Thermotabs. * Creatinine continues to improve at 1.1 with a GFR greater than 60. * Magnesium 1.8. * Patient has little if any nausea and is tolerating a regular diet. * Discharge today. - Patient Instructions Diet: Usual Diet as Tolerated Activity: As Tolerated Driving: Do Not Drive Showering/Bathing: May Shower Notify Provider of: Fever, Nausea and/or Vomiting Other/Special Instructions: Follow-up with your primary care provider this week. Your metoprolol XL was increased to 75 mg secondary to uncontrolled hypertension. Monitor your blood pressure at home and report it to your primary care provider. - Discharge Plan *PRESCRIPTION DRUG MONITORING PROGRAM REVIEWED*: No *COPY OF PRESCRIPTION DRUG MONITORING REPORT IN PATIENT HEATHER: No Prescriptions/Med Rec: Metoprolol Succinate [Toprol XL 50mg] 75 mg PO DAILY #45 tab.er Home Medications: Home Meds Lutein/Minerals/Vit A,C & E [I-Jil] 1 tab PO DAILY 02/25/19 [History] allopurinoL [Zyloprim] 50 mg PO DAILY 02/25/19 [History] Albuterol Sulfate [Proair Hfa] 2 puff INH Q4HR PRN 12/16/19 [History] Aspirin 325 mg PO DAILY 12/16/19 [History] Brimonidine [Alphagan P 0.15% Ophth Soln] 1 drop EYEBOTH DAILY 12/16/19 [History] Furosemide [Lasix] 20 mg PO DAILY 12/16/19 [History] Ondansetron [Zofran] 4 mg PO TID PRN 12/16/19 [History] Prochlorperazine Maleate [Compazine] 10 mg PO QID PRN 12/16/19 [History] Sodium Chloride/KCl [Thermotabs] 2 tab PO DAILY 12/16/19 [History] chlorproMAZINE [Thorazine] 25 mg PO Q6H PRN 12/16/19 [History] Metoprolol Succinate [Toprol XL 50mg] 75 mg PO DAILY #45 tab.er 12/20/19 [Rx] Oxygen Therapy Mode: Room Air Patient Handouts: Type 2 Diabetes Mellitus, Diagnosis, Adult Forms: ED Department Discharge Referrals: Brendan Caldera MD [Primary Care Provider] - - Discharge Summary/Plan Comment DC Time >30 min.: Yes Discharge Summary/Plan Comment: Discharge home with home health Follow-up with primary care provider this week. Follow-up with oncology. - General Info Date of Service: 12/20/19 Admission Dx/Problem (Free Text: Admission Diagnosis/Problem Admission Diagnosis/Problem Nausea and vomiting Subjective Update: Patient is having a little if any nausea. He is having some anxiety today, but his states this is very common for him. He denies any shortness of breath. Functional Status: Reports: Pain Controlled - Review of Systems General: Reports: No Symptoms HEENT: Reports: No Symptoms Pulmonary: Reports: No Symptoms Cardiovascular: Reports: No Symptoms Gastrointestinal: Reports: No Symptoms Musculoskeletal: Reports: No Symptoms Neurological: Reports: No Symptoms Psychiatric: Reports: Anxiety - Patient Data Vitals - Most Recent: Last Vital Signs Temp 98.0 F 12/20/19 08:00 Pulse 65 12/20/19 10:15 Resp 22 H 12/20/19 04:41 BP 170/82 H 12/20/19 10:11 Pulse Ox 98 12/20/19 10:15 Weight - Most Recent: 77.61 kg I&O - Last 24 hours: Intake & Output 12/19/19 12/20/19 12/20/19 22:59 06:59 14:59 Intake Total 1430 800 300 Output Total 130 650 Balance 1300 150 300 Lab Results - Last 24 hrs: Laboratory Results - last 24 hr 12/20/19 12/20/19 Range/Units 04:43 04:43 WBC 6.91 (4.23-9.07) K/mm3 RBC 3.84 L (4.63-6.08) M/mm3 Hgb 10.3 L (13.7-17.5) gm/dl Hct 32.4 L (40.1-51.0) % MCV 84.4 (79.0-92.2) fl MCH 26.8 (25.7-32.2) pg MCHC 31.8 L (32.2-35.5) g/dl RDW Std Deviation 42.2 (35.1-43.9) fL Plt Count 320 (163-337) K/mm3 MPV 10.2 (9.4-12.3) fl Neut % (Auto) 67.5 (34.0-67.9) % Lymph % (Auto) 11.6 L (21.8-53.1) % [place] % (Auto) 12.6 H (5.3-12.2) % Eos % (Auto) 7.4 H (0.8-7.0) Baso % (Auto) 0.3 (0.1-1.2) % Neut # (Auto) 4.67 (1.78-5.38) K/mm3 Lymph # (Auto) 0.80 L (1.32-3.57) K/mm3 [place] # (Auto) 0.87 H (0.30-0.82) K/mm3 Eos # (Auto) 0.51 (0.04-0.54) K/mm3 Baso # (Auto) 0.02 (0.01-0.08) K/mm3 Sodium 132 L (136-145) mEq/L Potassium 3.7 (3.5-5.1) mEq/L Chloride 98 (98-107) mEq/L Carbon Dioxide 26 (21-32) mEq/L Anion Gap 11.7 (5-15) BUN 11 (7-18) mg/dL Creatinine 1.1 (0.7-1.3) mg/dL Est Cr Clr Drug Dosing 51.82 mL/min Estimated GFR (MDRD) > 60 (>60) mL/min BUN/Creatinine Ratio 10.0 L (14-18) Glucose 115 (83-115) mg/dL Calcium 7.9 L (8.5-10.1) mg/dL Magnesium 1.9 (1.8-2.4) mg/dl Med Orders - Current: Current Medications Acetaminophen (Tylenol) 650 mg PO Q4H PRN PRN Reason: Pain/Fever Last Admin: 12/20/19 00:09 Dose: 650 mg Documented by: Allopurinol (Zyloprim) 50 mg PO DAILY [facility] Last Admin: 12/20/19 10:02 Dose: 50 mg Documented by: Aspirin (Ecotrin) 325 mg PO DAILY [facility] [place] Last Admin: 12/20/19 08:41 Dose: 325 mg Documented by: Brimonidine Tartrate (Alphagan 0.2% Ophth Soln) 0 ml EYEBOTH DAILY [facility] [place] Last Admin: 12/20/19 08:46 Dose: 1 drop Documented by: Calcium Carbonate/Glycine (Tums) 1,000 mg PO Q2H PRN PRN Reason: Indigestion Last Admin: 12/18/19 21:22 Dose: 1,000 mg Documented by: Chlorpromazine HCl (Thorazine) 25 mg PO Q6H PRN PRN Reason: Hiccups Famotidine (Pepcid) 10 mg PO BID [facility] [place] Last Admin: 12/20/19 08:41 Dose: 10 mg Documented by: Furosemide (Lasix) 20 mg PO DAILY [facility] [place] Last Admin: 12/20/19 08:46 Dose: 20 mg Documented by: Hydralazine HCl (Apresoline) 10 mg IVPUSH Q2H PRN PRN Reason: Hypertension Promethazine HCl 12.5 mg/ (Sodium Chloride) 50.5 mls @ 100 mls/hr IV Q6H PRN PRN Reason: Nausea/Vomiting Last Admin: 12/17/19 13:22 Dose: 100 mls/hr Documented by: Levalbuterol HCl (Xopenex) 1.25 mg NEB TIDRT PRN PRN Reason: Wheezing Metoprolol Succinate (Toprol Xl) 75 mg PO DAILY [facility] [place] Last Admin: 12/20/19 08:38 Dose: 75 mg Documented by: Ondansetron HCl (Zofran) 4 mg IVPUSH Q6H PRN PRN Reason: Nausea/Vomiting Last Admin: 12/20/19 03:16 Dose: 4 mg Documented by: Senna/Docusate Sodium (Senna Plus) 1 tab PO BID [facility] [place] Last Admin: 12/20/19 08:46 Dose: 1 tab Documented by: Vit A/Vit C/Vit E/Selen/Cu/Zn/Lutei (Icaps Mv) 1 tab PO DAILY [facility] [place] Last Admin: 12/20/19 08:46 Dose: Not Given Documented by: Discontinued Medications Albuterol (Proventil Hfa) gm INH Q4HR PRN PRN Reason: Shortness of Breath Brimonidine Tartrate (Alphagan 0.2% Ophth Soln) 0 ml EYEBOTH Q12HR [facility] [place] Last Admin: 12/18/19 20:12 Dose: Not Given Documented by: Diphenhydramine HCl (Benadryl) 25 mg IVPUSH ONETIME ONE Stop: 12/16/19 05:41 Last Admin: 12/16/19 05:49 Dose: 25 mg Documented by: Famotidine (Pepcid) 20 mg IVPUSH ONETIME ONE Stop: 12/16/19 05:35 Last Admin: 12/16/19 05:47 Dose: 20 mg Documented by: Guaifenesin (Mucinex) 600 mg PO BID [facility] [place] Last Admin: 12/18/19 20:02 Dose: Not Given Documented by: Lactated Ringer's (Ringers, Lactated) 500 mls @ 999 mls/hr IV .BOLUS ONE Stop: 12/16/19 01:38 Last Admin: 12/16/19 01:20 Dose: 999 mls/hr Documented by: Lactated Ringer's (Ringers, Lactated) 1,000 mls @ 125 mls/hr IV ASDIRECTED [facility] [place] Last Admin: 12/16/19 02:44 Dose: 125 mls/hr Documented by: Sodium Chloride (Normal Saline) 1,000 mls @ 250 mls/hr IV ASDIRECTED [facility] [place] Last Admin: 12/17/19 03:31 Dose: 250 mls/hr Documented by: Sodium Chloride (Normal Saline) 100 mls @ 60 mls/hr IV ASDIRECTED [facility] [place] Last Admin: 12/17/19 15:14 Dose: 60 mls/hr Documented by: Magnesium Sulfate 2 gm/ Premix 50 mls @ 25 mls/hr IV ONETIME ONE Stop: 12/19/19 10:14 Last Admin: 12/19/19 09:06 Dose: 25 mls/hr Documented by: Iopamidol (Isovue-370 (76%)) 100 ml IVPUSH ONETIME ONE Stop: 12/17/19 14:39 Last Admin: 12/17/19 14:44 Dose: 100 ml Documented by: Magnesium Hydroxide (Milk Of Magnesia) 30 ml PO ONETIME ONE Stop: 12/19/19 16:14 Last Admin: 12/19/19 16:36 Dose: 30 ml Documented by: Metoclopramide HCl (Reglan) 5 mg IVPUSH ONETIME ONE Stop: 12/16/19 05:40 Last Admin: 12/16/19 05:49 Dose: 5 mg Documented by: Metoprolol Succinate (Toprol Xl) 50 mg PO DAILY [facility] Last Admin: 12/18/19 08:31 Dose: 50 mg Documented by: Metoprolol Succinate (Toprol Xl) 50 mg PO BEDTIME [facility] Metoprolol Succinate (Toprol Xl) 50 mg PO DAILY [facility] [place] Last Admin: 12/19/19 09:04 Dose: 50 mg Documented by: Metoprolol Succinate (Toprol Xl) 25 mg PO ONETIME ONE Stop: 12/19/19 11:10 Last Admin: 12/19/19 12:20 Dose: 25 mg Documented by: Ondansetron HCl (Zofran) 4 mg IVPUSH ONETIME ONE Stop: 12/16/19 01:09 Last Admin: 12/16/19 01:20 Dose: 4 mg Documented by: Ondansetron HCl (Zofran) 4 mg IVPUSH ONETIME ONE Stop: 12/16/19 02:27 Last Admin: 12/16/19 02:29 Dose: 4 mg Documented by: Ondansetron HCl (Zofran) 4 mg IVPUSH ONETIME ONE Stop: 12/16/19 05:18 Last Admin: 12/16/19 05:20 Dose: 4 mg Documented by: Ondansetron HCl (Zofran) 4 mg IV Q6H [facility] Last Admin: 12/18/19 12:02 Dose: 4 mg Documented by: - Exam Quality Assessment: Denies: Supplemental Oxygen General: Reports: Alert, Oriented HEENT: Reports: Pupils Equal, Mucous Membr. Moist/[place] Neck: Reports: Supple Lungs: Reports: Clear to Auscultation, Normal Respiratory Effort Cardiovascular: Reports: Regular Rate, Regular Rhythm GI/Abdominal Exam: Normal Bowel Sounds, Soft, Non-Tender, No Distention Extremities: Normal Inspection, Normal Range of Motion, Non-Tender, No Pedal Edema, Normal Capillary Refill Skin: Reports: Warm, Dry, Intact Psy/Mental Status: Reports: Alert, Anxious
[2019-12-20 12:40] VITALS: BP 150/78; PULSE 85
== END 2019-12-20 13:40 | disposition home health service (06) | DRG 682 ==
LOC: JD.ED 00:47 → JD.MS 11:10 → OBSVTOIN 16:46
PROVIDERS: ADMIT Internal Medicine; ATTEND Internal Medicine
DX: R11.2 Nausea with vomiting, unspecified (principal); R10.84 Generalized abdominal pain; C18.9 Malignant neoplasm of colon, unspecified; N17.9 Acute kidney failure, unspecified; K83.1 Obstruction of bile duct; H40.9 Unspecified glaucoma; H35.30 Unspecified macular degeneration; C78.7 Secondary malignant neoplasm of liver and intrahepatic bile duct; C34.90 Malignant neoplasm of unspecified part of unspecified bronchus or lung; N18.3 Chronic kidney disease, stage 3 (moderate); Z90.5 Acquired absence of kidney; M19.90 Unspecified osteoarthritis, unspecified site; K56.609 Unspecified intestinal obstruction, unspecified as to partial versus complete obstruction; Z96.89 Presence of other specified functional implants; K86.89 Other specified diseases of pancreas; L40.9 Psoriasis, unspecified; Z98.49 Cataract extraction status, unspecified eye; M10.9 Gout, unspecified; M43.06 Spondylolysis, lumbar region; H54.7 Unspecified visual loss; K21.9 Gastro-esophageal reflux disease without esophagitis; Z66 Do not resuscitate; N18.9 Chronic kidney disease, unspecified; I12.9 Hypertensive chronic kidney disease with stage 1 through stage 4 chronic kidney disease, or unspecified chronic kidney disease; M16.9 Osteoarthritis of hip, unspecified; Z95.828 Presence of other vascular implants and grafts; E86.9 Volume depletion, unspecified; R63.4 Abnormal weight loss; F32.9 Major depressive disorder, single episode, unspecified; K22.2 Esophageal obstruction; Z92.21 Personal history of antineoplastic chemotherapy; D64.9 Anemia, unspecified; R94.5 Abnormal results of liver function studies; Z90.49 Acquired absence of other specified parts of digestive tract; Z88.1 Allergy status to other antibiotic agents; Z88.8 Allergy status to other drugs, medicaments and biological substances; Z88.0 Allergy status to penicillin; Z88.2 Allergy status to sulfonamides; Z87.891 Personal history of nicotine dependence; Z79.899 Other long term (current) drug therapy; Z79.82 Long term (current) use of aspirin; Z86.73 Personal history of transient ischemic attack (TIA), and cerebral infarction without residual deficits
CPT/HCPCS: 36415; 74019; 74150; 80048 ×2; 80053; 82248; 83690; 83735 ×2; 84100 ×2; 85025; 96361; 96374; 96375; 96376; 99285; J1200; J2405 ×4; J2765; J3490; J7030 ×2; J7120 ×2; 36600; 71275; 71275-26; 82803; 84550; 94762; 97110-GP; 97162-GP; 99222; 99232; 99239; 99284; A9270-GY; J1642; J2550; J3475; J7050; Q9967

== ENCOUNTER → 2020-01-05 | Day surgery (SDC) | payer MEDICARE, BC ==
[~2020-01-05] MED LIST changes: -Glucagon,Human Recombinant 1 MG Vial IVPUSH ONE; -HYDROmorphone 0.5 MG/0.5 ML Syringe IVPUSH ONE; -Hyoscyamine 0.125 MG Tab.SL SL ONE; -Lidocaine 1% 4 ML ONE; -Metoclopramide 10 MG/2 ML SDV IVPUSH ONE; -Midazolam 1 MG/ML 2 ML SDV ONE; -Ondansetron 4 MG/2 ML SDV ONE; +Phenylephrine 2.5% Ophth Soln 2 ML Bot EYERT SCH; -Propofol 200 MG/20 ML SDV ONE; -Sodium Chloride 0.9% 1,000 ML IV SCH; -Succinylcholine/Sod PF 100 MG/5 ML SYRINGE IV ONE; +Tropicamide 1% Ophth Soln 15 ML Bottle EYERT SCH; -fentaNYL 100 MCG/2 ML SDV ONE
[2020-01-05] MEDS: Brimonidine 0.2% Ophth Soln 5 ML Bottle EYERT SCH ×2 (10:01→10:47)
[2020-01-05 13:46] VITALS: BP 132/68; PULSE 72
== END ==
LOC: JD.SDS 10:08
PROVIDERS: ATTEND Ophthalmology
DX: H26.491 Other secondary cataract, right eye (principal); H40.053 Ocular hypertension, bilateral; H35.3133 Nonexudative age-related macular degeneration, bilateral, advanced atrophic without subfoveal involvement; H35.363 Drusen (degenerative) of macula, bilateral; H16.103 Unspecified superficial keratitis, bilateral; H16.223 Keratoconjunctivitis sicca, not specified as Sjogren's, bilateral; H02.834 Dermatochalasis of left upper eyelid; H02.831 Dermatochalasis of right upper eyelid; J45.909 Unspecified asthma, uncomplicated; I10 Essential (primary) hypertension; Z96.1 Presence of intraocular lens; Z87.891 Personal history of nicotine dependence; Z88.0 Allergy status to penicillin; Z88.2 Allergy status to sulfonamides; Z88.1 Allergy status to other antibiotic agents; Z88.8 Allergy status to other drugs, medicaments and biological substances; Z79.899 Other long term (current) drug therapy

== ENCOUNTER 2020-01-12 19:59 | Observation (INO) | payer MEDICARE, BC ==
[2020-01-12] MEDS ORDERED: Sodium Chloride 0.9% 10 ML Syringe FLUSH PRN (20:25)
[2020-01-12] MEDS ORDERED: Sodium Chloride 0.9% 1,000 ML IV SCH (20:30)
--- NOTE | 2020-01-12 20:53 | EDM.PDOC ---
ED HPI GENERAL MEDICAL PROBLEM - General Chief Complaint: Gastrointestinal Problem Stated Complaint: NAUSEA/VOMITING Time Seen by Provider: 01/12/20 20:09 Source of Information: Reports: Patient, RN Notes Reviewed - History of Present Illness INITIAL COMMENTS - FREE TEXT/NARRATIVE: 79 yr old male comes in with nausea, vomiting, generalized weakness and dizziness. This started today, he has had similar sx off and on in the past. His appetite has been down. He drank some ensure late afternoon, kept that down. Tried to eat some dinner this evening and vomited that up. No abd pain at this time. He did take a zofran ODT about 2 hrs ago. Does not feel as nauseated right now. He has had hyponatremia in the past. He wonders if that if a problem today contributing to his sx. No chest pain or difficulty breathing. No cough, fever or chills. - Related Data Allergies Allergy/AdvReac Type Severity Reaction Status Date / Time azithromycin Allergy Severe Anaphylactic Verified 01/12/20 23:27 Shock gatifloxacin [From Tequin] Allergy Severe Anaphylactic Verified 01/12/20 23:27 Shock lansoprazole [From Prevacid] Allergy Severe Anaphylactic Verified 01/12/20 23:27 Shock Penicillins Allergy Severe Anaphylactic Verified 01/12/20 23:27 Shock omeprazole [From Prilosec] Allergy Mild Cannot Verified 01/12/20 23:27 Remember Sulfa (Sulfonamide Allergy Mild Rash Verified 01/12/20 23:27 Antibiotics) Home Meds: Home Meds Lutein/Minerals/Vit A,C & E [I-Jil] 1 tab PO DAILY 02/25/19 [History] allopurinoL [Zyloprim] 50 mg PO DAILY 02/25/19 [History] Albuterol Sulfate [Proair Hfa] 2 puff INH Q4HR PRN 12/16/19 [History] Aspirin 325 mg PO DAILY 12/16/19 [History] Brimonidine [Alphagan P 0.15% Ophth Soln] 1 drop EYEBOTH DAILY 12/16/19 [History] Furosemide [Lasix] 20 mg PO DAILY 12/16/19 [History] Ondansetron [Zofran] 4 mg PO TID PRN 12/16/19 [History] Prochlorperazine Maleate [Compazine] 10 mg PO QID PRN 12/16/19 [History] Sodium Chloride/KCl [Thermotabs] 2 tab PO DAILY 12/16/19 [History] chlorproMAZINE [Thorazine] 25 mg PO Q6H PRN 12/16/19 [History] Metoprolol Succinate [Toprol XL 50mg] 75 mg PO DAILY #45 tab.er 12/20/19 [Rx] Past Medical History HEENT History: Reports: Glaucoma, Macular Degeneration Other HEENT History: wears eyeglasses, has upper and lower dentures Cardiovascular History: Reports: Hypertension Respiratory History: Reports: COPD, SOB Other Respiratory History: stress asthma Gastrointestinal History: Reports: Bowel Obstruction, GERD Other Gastrointestinal History: esophagitis, liver mass, dysphagia, ileus, peg tube placement, small bowel obstruction Genitourinary History: Reports: Chronic Renal Insuffiency, Other (See Below) Other Genitourinary History: Rt nephrectomy CLOTH MENDER History: Reports: None Musculoskeletal History: Reports: Arthritis Other Musculoskeletal History: dupuytren's contracture Neurological History: Reports: TIA Other Neuro History: TIAs Psychiatric History: Reports: Depression Endocrine/Metabolic History: Reports: None Hematologic History: Reports: None Immunologic History: Reports: None Oncologic (Cancer) History: Reports: Colon, Liver, Lung Other Oncologic History: off of chemo for the past 9 months, with james cath L chest Dermatologic History: Reports: Psoriasis - Infectious Disease History Infectious Disease History: Reports: Measles, Mumps - Past Surgical History Head Surgeries/Procedures: Reports: None HEENT Surgical History: Reports: Cataract Surgery, Naso-Sinus Surgery Respiratory Surgical History: Reports: Tracheostomy GI Surgical History: Reports: Appendectomy, Cholecystectomy, Colon, Colonoscopy, Colostomy, EGD, Other (See Below) Male Surgical History: Reports: Nephrectomy Other Male Surgeries/Procedures: right kidney removed Endocrine Surgical History: Reports: None Neurological Surgical History: Reports: None Dermatological Surgical History: Reports: Skin Biopsy Social & Family History - Family History Family Medical History: Noncontributory Cardiac: Reports: CAD, [place] GI: Reports: Other (See Below) : Reports: Renal Disease/Insufficiency Endocrine/Metabolic: Reports: Diabetes, type II Other Oncologic Family History: aunt had brain cancer - Tobacco Use Smoking Status *Q: Former Smoker Used Tobacco, but Quit: Yes Month/Year Tobacco Last Used: 20 yrs ago - Caffeine Use Caffeine Use: Reports: Soda Other Caffeine Use: 2 cans/day - Recreational Drug Use Recreational Drug Use: No - Living Situation & Occupation Living situation: Reports: , with Spouse 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) ED ROS GENERAL - Review of Systems Review Of Systems: See Below Constitutional: Denies: Fever, Chills, Diaphoresis HEENT: Denies: Throat Pain Respiratory: Denies: Shortness of Breath Cardiovascular: Denies: Chest Pain GI/Abdominal: Reports: Abdominal Pain (mainly when vomiting. ), Diarrhea (off and on, not today), Decreased Appetite, Nausea, Vomiting. Denies: Hematemesis, Hematochezia, Melena Musculoskeletal: Reports: No Symptoms Skin: Reports: No Symptoms Neurological: Reports: Dizziness, Weakness. Denies: Numbness, Tingling, Trouble Speaking ED EXAM, GI/ABD - Physical Exam Exam: See Below General Appearance: Alert, No Apparent Distress Eyes: Bilateral: Normal Appearance Throat/Mouth: Normal Inspection Head: Atraumatic Neck: Supple Respiratory/Chest: No Respiratory Distress, Lungs Clear, Normal Breath Sounds Cardiovascular: Regular Rate, Rhythm GI/Abdominal Exam: Soft, Non-Tender. No: Guarding, Rebound Back Exam: No: CVA Tenderness (L), CVA Tenderness (R) Extremities: Normal Inspection, Normal Range of Motion. No: Pedal Edema, Leg Pain, Redness Neurological: Alert, Oriented, No Motor/Sensory Deficits Skin Exam: Warm, Dry, Normal Color, No Rash EKG INTERPRETATION EKG Date: 01/12/20 Rhythm: NSR [place]: Normal QRS: RBBB ST-T: Normal Course - Vital Signs Last Recorded V/S: Last Vital Signs Temp 98.1 F 01/12/20 23:19 Pulse 79 01/12/20 23:19 Resp 18 01/12/20 23:19 BP 115/87 01/12/20 23:19 Pulse Ox 98 01/12/20 23:19 - Orders/Labs/Meds Orders: Active Orders 24 hr Category Date Time Status Central Line Assessment [RC] Q2HR Care 01/12/20 20:55 Active Abdomen 2V AP Flat Upright [CR] Stat Exams 01/12/20 20:47 Taken Sodium Chloride 0.9% [Normal Saline] 1,000 ml Med 01/12/20 22:15 Active IV ASDIRECTED Sodium Chloride 0.9% [Saline Flush] Med 01/12/20 20:25 Active 10 ml FLUSH ASDIRECTED PRN Peripheral IV Insertion Adult [OM.PC] Stat Oth 01/12/20 20:25 Ordered Medication Orders Sodium Chloride (Normal Saline) 1,000 mls @ 150 mls/hr IV ASDIRECTED SHANNON Last Admin: 01/12/20 22:18 Dose: 150 mls/hr Documented by: TONIO Ondansetron HCl (Zofran) 4 mg IVPUSH Q6H PRN PRN Reason: Nausea Sodium Chloride (Saline Flush) 10 ml FLUSH ASDIRECTED PRN PRN Reason: Keep Vein Open Last Admin: 01/12/20 20:49 Dose: 10 ml Documented by: TONIO Labs: Laboratory Tests 01/12/20 01/12/20 01/12/20 Range/Units 20:45 20:45 22:17 WBC 9.36 H (4.23-9.07) K/mm3 RBC 4.23 L (4.63-6.08) M/mm3 Hgb 11.1 L (13.7-17.5) gm/dl Hct 33.8 L (40.1-51.0) % MCV 79.9 D (79.0-92.2) fl MCH 26.2 (25.7-32.2) pg MCHC 32.8 (32.2-35.5) g/dl RDW Std Deviation 39.7 (35.1-43.9) fL Plt Count 300 (163-337) K/mm3 MPV 9.2 L (9.4-12.3) fl Neut % (Auto) 72.1 H (34.0-67.9) % Lymph % (Auto) 11.8 L (21.8-53.1) % [place] % (Auto) 8.2 (5.3-12.2) % Eos % (Auto) 7.4 H (0.8-7.0) Baso % (Auto) 0.2 (0.1-1.2) % Neut # (Auto) 6.75 H (1.78-5.38) K/mm3 Lymph # (Auto) 1.10 L (1.32-3.57) K/mm3 [place] # (Auto) 0.77 (0.30-0.82) K/mm3 Eos # (Auto) 0.69 H (0.04-0.54) K/mm3 Baso # (Auto) 0.02 (0.01-0.08) K/mm3 Sodium 119 L D (136-145) mEq/L Potassium 6.1 H D (3.5-5.1) mEq/L Chloride 88 L (98-107) mEq/L Carbon Dioxide 24 (21-32) mEq/L Anion Gap 13.1 (5-15) BUN 24 H (7-18) mg/dL Creatinine 1.5 H (0.7-1.3) mg/dL Est Cr Clr Drug Dosing 38.00 mL/min Estimated GFR (MDRD) 45 (>60) mL/min BUN/Creatinine Ratio 16.0 (14-18) Glucose 99 (83-115) mg/dL Calcium 8.6 (8.5-10.1) mg/dL Total Bilirubin 0.4 (0.2-1.0) mg/dL AST 21 (15-37) U/L ALT 20 (16-63) U/L Alkaline Phosphatase 142 H (46-116) U/L Total Protein 6.6 (6.4-8.2) g/dl Albumin 3.0 L (3.4-5.0) g/dl Globulin 3.6 gm/dL Albumin/Globulin Ratio 0.8 L (1-2) Lipase 160 (73-393) U/L COVID-19 (RAJ) Negative (NEGATIVE) Meds: Medications Generic Name Dose Route Start Last Admin Trade Name Freq PRN Reason Stop Dose Admin Sodium Chloride 1,000 mls @ 150 mls/hr 01/12/20 22:15 01/12/20 22:18 Normal Saline IV 150 mls/hr ASDIRECTED SHANNON Administration Ondansetron HCl 4 mg 01/12/20 23:14 Zofran IVPUSH Q6H PRN Nausea Sodium Chloride 10 ml 01/12/20 20:25 01/12/20 20:49 Saline Flush FLUSH 10 ml ASDIRECTED PRN Administration Keep Vein Open Discontinued Medications Generic Name Dose Route Start Last Admin Trade Name Freq PRN Reason Stop Dose Admin Sodium Chloride 1,000 mls @ 999 mls/hr 01/12/20 20:30 01/12/20 20:49 Normal Saline IV 999 mls/hr ONETIME SHANNON Administration - Re-Assessments/Exams Free Text/Narrative Re-Assessment/Exam: 01/12/20 22:05 Na has come back at 119, K+ 6.1. Running a NS 1 liter bolus. Vitals are stable, no further nausea or vomiting while here in the ED but also not eating or drinking. Will admit for further treatment. Will slow the NS to 150/hr after the 1 liter bolus is in. Repeat BMP in 2 hr. Bridge orders written. Departure - Departure Time of Disposition: 21:45 Disposition: Refer to Observation Condition: Fair Clinical Impression: Hyponatremia, Hyperkalemia, Weakness generalized Vomiting Qualifiers: Vomiting type: unspecified Vomiting Intractability: unspecified Nausea presence: with nausea Qualified Code(s): R11.2 - Nausea with vomiting, unspecified - Discharge Information Sepsis Event Note (ED) - Evaluation Sepsis Screening Result: No Definite Risk - Focused Exam Vital Signs: Vital Signs Temp Pulse Resp BP Pulse Ox 01/12/20 21:48 96.9 F 72 16 137/71 98 01/12/20 20:19 97.0 F 74 20 116/66 93 L ED Communication - Discussed Case With (1) Discussed Case With (1): Admitting Provider (Dr Yu, decision to admit at about 21:50.) - My Orders Last 24 Hours: My Active Orders 01/12/20 20:25 Sodium Chloride 0.9% [Saline Flush] 10 ml FLUSH ASDIRECTED PRN Peripheral IV Insertion Adult [OM.PC] Stat 01/12/20 20:47 Abdomen 2V AP Flat Upright [CR] Stat 01/12/20 20:55 Central Line Assessment [RC] Q2HR 01/12/20 22:15 Sodium Chloride 0.9% [Normal Saline] 1,000 ml IV ASDIRECTED - Assessment/Plan Last 24 Hours: My Active Orders 01/12/20 20:25 Sodium Chloride 0.9% [Saline Flush] 10 ml FLUSH ASDIRECTED PRN Peripheral IV Insertion Adult [OM.PC] Stat 01/12/20 20:47 Abdomen 2V AP Flat Upright [CR] Stat 01/12/20 20:55 Central Line Assessment [RC] Q2HR 01/12/20 22:15 Sodium Chloride 0.9% [Normal Saline] 1,000 ml IV ASDIRECTED
[2020-01-12] MEDS: Sodium Chloride 0.9% 1,000 ML IV SCH (22:18)
[2020-01-12] MEDS ORDERED: Ondansetron 4 MG/2 ML SDV IVPUSH PRN (23:14)
[2020-01-13] MEDS: Sodium Chloride 0.9% 1,000 ML IV SCH ×2 (04:27→15:28)
--- NOTE | 2020-01-13 07:33 | CR ---
Abdomen: Supine and upright views the abdomen were obtained. Comparison: Prior abdominal x-ray of 12/16/19. Gas is noted mostly within colon. No bowel dilatation is appreciated. Degenerative joint space narrowing is noted within the right hip. Degenerative change is noted within the spine. Surgical clips are seen within the right abdomen. Biliary stent is present. Multiple nodules are partially seen within the chest some of which have increased in size from previous exam. Impression: 1. Multiple nodules within the chest some of which have increased in size from prior study which is felt compatible with worsening metastatic disease. 2. Nothing acute is appreciated within the abdomen. Diagnostic code #9 This report was dictated in MDT
--- NOTE | 2020-01-13 08:05 | PCM.HP.2 ---
H&P History of Present Illness - General Date of Service: 01/13/20 Admit Problem/Dx: Admission Diagnosis/Problem Admission Diagnosis/Problem Hyperkalemia Source of Information: Patient, Old Records, Provider, RN, RN Notes Reviewed History Limitations: Reports: No Limitations - History of Present Illness Initial Comments - Free Text/Narative: This is a 79yo male who presented to ED on 01/12/2020 with nausea and vomiting. He reports he also was having generalized weakness and dizziness which started today. Decreased appetite. Reports he is only been able to keep down some Ensure and has vomited his meals. Reports he has had similar symptoms in the past. No abdominal pain. He has a home prescription for Zofran which he took with mild improvement of symptoms. States he has a history of hyponatremia with similar symptoms and wonders if this is not the problem currently. Denies any cough, fever, chills, chest pain, difficulty breathing. In the ED he was afebrile with a temp of 98.1. Pulse was 79. Respirations 18. Blood pressure 115/87. Pulse ox 90% on room air. Twelve-lead EKG was obtained showing a sinus rhythm with right bundle branch block. CBC was grossly normal however his CMP revealed his sodium to be very low at 119. Potassium was high at 6.1. Chloride was low at 88. Creatinine was high at 1.5. GFR was 45. COVID-19 screen was negative. He was given a 1 L fluid bolus, which was later decreased 250 mL an hour. He is also given Zofran. Bridge orders were placed for repeat BMP overnight and in the morning. Abdominal x-ray was obtained showing multiple nodules within the chest, some of which have increased in size from prior study which is felt compatible with worsening metastatic disease. Nothing acute is appreciated within the abdomen. He carries a history of glaucoma, macular degeneration, hypertension, COPD, stress asthma, bowel obstruction, GERD, esophagitis, liver mass, dysphagia, ileus, PEG tube placement, small bowel obstruction, chronic renal insufficiency, nephrectomy, arthritis, Butrans contracture, TIA, depression, colon cancer, liver cancer, lung cancer, and psoriasis. He reported has been off chemo for the past 9 months. He does have a Port-A-Cath in his left chest. Primary care provider is Dr. Caldera. He does see Dr. Loredo for oncology. Reports he had an oncology appointment last week and Dr. Loredo reported everything was stable. He is a former smoker who quit approximately 20 years ago. - Related Data Allergies/Adverse Reactions: Allergies Allergy/AdvReac Type Severity Reaction Status Date / Time azithromycin Allergy Severe Anaphylactic Verified 01/12/20 23:27 Shock gatifloxacin [From Tequin] Allergy Severe Anaphylactic Verified 01/12/20 23:27 Shock lansoprazole [From Prevacid] Allergy Severe Anaphylactic Verified 01/12/20 23:27 Shock Penicillins Allergy Severe Anaphylactic Verified 01/12/20 23:27 Shock omeprazole [From Prilosec] Allergy Mild Cannot Verified 01/12/20 23:27 Remember Sulfa (Sulfonamide Allergy Mild Rash Verified 01/12/20 23:27 Antibiotics) Home Medications: Home Meds Lutein/Minerals/Vit A,C & E [I-Jil] 1 tab PO DAILY 02/25/19 [History] allopurinoL [Zyloprim] 50 mg PO DAILY 02/25/19 [History] Albuterol Sulfate [Proair Hfa] 2 puff INH Q4HR PRN 12/16/19 [History] Aspirin 325 mg PO DAILY 12/16/19 [History] Brimonidine [Alphagan P 0.15% Ophth Soln] 1 drop EYEBOTH BID 12/16/19 [History] Furosemide [Lasix] 20 mg PO DAILY 12/16/19 [History] Ondansetron [Zofran] 4 mg PO TID PRN 12/16/19 [History] Prochlorperazine Maleate [Compazine] 10 mg PO QID PRN 12/16/19 [History] Sodium Chloride/KCl [Thermotabs] 2 tab PO DAILY 12/16/19 [History] chlorproMAZINE [Thorazine] 25 mg PO Q6H PRN 12/16/19 [History] Metoprolol Succinate [Toprol XL 50mg] 75 mg PO DAILY #45 tab.er 12/20/19 [Rx] Ketorolac [Acular 0.5% Ophth Soln] 1 drop EYERT QID 01/13/20 [History] Past Medical History HEENT History: Reports: Glaucoma, Macular Degeneration Other HEENT History: wears eyeglasses, has upper and lower dentures Cardiovascular History: Reports: Hypertension Respiratory History: Reports: COPD, SOB Other Respiratory History: stress asthma Gastrointestinal History: Reports: Bowel Obstruction, GERD Other Gastrointestinal History: esophagitis, liver mass, dysphagia, ileus, peg tube placement, small bowel obstruction Genitourinary History: Reports: Chronic Renal Insuffiency, Other (See Below) Other Genitourinary History: Rt nephrectomy REPAIR WEAVER History: Reports: None Musculoskeletal History: Reports: Arthritis Other Musculoskeletal History: dupuytren's contracture Neurological History: Reports: TIA Other Neuro History: TIAs Psychiatric History: Reports: Depression Endocrine/Metabolic History: Reports: None Hematologic History: Reports: None Immunologic History: Reports: None Oncologic (Cancer) History: Reports: Colon, Liver, Lung Other Oncologic History: off of chemo for the past 9 months, with james cath L chest Dermatologic History: Reports: Psoriasis - Infectious Disease History Infectious Disease History: Reports: Measles, Mumps - Past Surgical History Head Surgeries/Procedures: Reports: None HEENT Surgical History: Reports: Cataract Surgery, Naso-Sinus Surgery Respiratory Surgical History: Reports: Tracheostomy GI Surgical History: Reports: Appendectomy, Cholecystectomy, Colon, Colonoscopy, Colostomy, EGD, Other (See Below) Male Surgical History: Reports: Nephrectomy Other Male Surgeries/Procedures: right kidney removed Endocrine Surgical History: Reports: None Neurological Surgical History: Reports: None Dermatological Surgical History: Reports: Skin Biopsy Social & Family History - Family History Family Medical History: Noncontributory Cardiac: Reports: CAD, [place] GI: Reports: Other (See Below) : Reports: Renal Disease/Insufficiency Endocrine/Metabolic: Reports: Diabetes, type II Other Oncologic Family History: aunt had brain cancer - Tobacco Use Smoking Status *Q: Former Smoker Years of Tobacco use: 40 Packs/Tins Daily: 1 Used Tobacco, but Quit: Yes Month/Year Tobacco Last Used: 20 yrs ago - Caffeine Use Caffeine Use: Reports: Soda Other Caffeine Use: 2 cans/day - Recreational Drug Use Recreational Drug Use: No - Living Situation & Occupation Living situation: Reports: , with Spouse 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) H&P Review of Systems - Review of Systems: Review Of Systems: See Below General: Reports: Weakness, Decreased Appetite. Denies: Fever, Chills, Malaise, Fatigue HEENT: Reports: No Symptoms. Denies: Eye Pain, Headaches, Sore Throat, Vertigo, Visual Changes Pulmonary: Reports: Shortness of Breath (Chronic but at baseline - not on oxygen ), Cough (Occasional ). Denies: Wheezing, Pleuritic Chest Pain Cardiovascular: Reports: Dyspnea on Exertion (Chronic and at baseline ), Lightheadedness. Denies: Chest Pain, Palpitations, Edema Gastrointestinal: Reports: Constipation. Denies: Abdominal Pain, Diarrhea, Nausea, Vomiting Genitourinary: Reports: No Symptoms. Denies: Pain Musculoskeletal: Reports: No Symptoms Skin: Reports: No Symptoms. Denies: Cyanosis Psychiatric: Reports: No Symptoms. Denies: Confusion Neurological: Denies: Confusion, Dizziness, Headache, Numbness, Seizure, Syncope, Tingling, Tremors, Trouble Speaking, Difficulty Walking, Change in Speech, Gait Disturbance Hematologic/Lymphatic: Reports: No Symptoms Immunologic: Reports: No Symptoms Exam - Exam Exam: See Below - Vital Signs Vital Signs: Last Vital Signs Temp 98.1 F 01/13/20 04:21 Pulse 80 01/13/20 04:21 Resp 18 01/13/20 04:21 BP 118/72 01/13/20 04:21 Pulse Ox 97 01/13/20 04:21 Weight: 163 lb - Exam Quality Assessment: Central Line/PICC, DVT Prophylaxis. No: Supplemental Oxygen General: Alert, Oriented, Cooperative. No: Mild Distress HEENT: Conjunctiva Clear, EACs Clear, Mucosa Moist & Ali Molina, Posterior Pharynx Clear, TMs Clear Neck: Supple, Trachea Midline Lungs: Clear to Auscultation, Normal Respiratory Effort Cardiovascular: Regular Rate, Regular Rhythm GI/Abdominal Exam: Normal Bowel Sounds, Soft, Non-Tender, No Organomegaly, No Distention (Male) Exam: Deferred Rectal (Males) Exam: Deferred Extremities: Normal Inspection, Normal Range of Motion, Non-Tender, No Pedal Edema Peripheral Pulses: 2+: Radial (L), Radial (R), Dorsalis Pedis (L), Dorsalis Pedis (R) Skin: Warm, Dry, Intact Neurological: Cranial Nerves Intact (Grossly ) Neuro Extensive - Mental Status: Alert, Oriented x3, Normal Mood/Affect Psychiatric: Alert, Normal Affect, Normal Mood - Patient Data Lab Results Last 24 hrs: Laboratory Results - last 24 hr 08/25/20 08/25/20 08/25/20 Range/Units 20:45 20:45 22:17 WBC 9.36 H (4.23-9.07) K/mm3 RBC 4.23 L (4.63-6.08) M/mm3 Hgb 11.1 L (13.7-17.5) gm/dl Hct 33.8 L (40.1-51.0) % MCV 79.9 D (79.0-92.2) fl MCH 26.2 (25.7-32.2) pg MCHC 32.8 (32.2-35.5) g/dl RDW Std Deviation 39.7 (35.1-43.9) fL Plt Count 300 (163-337) K/mm3 MPV 9.2 L (9.4-12.3) fl Neut % (Auto) 72.1 H (34.0-67.9) % Lymph % (Auto) 11.8 L (21.8-53.1) % [place] % (Auto) 8.2 (5.3-12.2) % Eos % (Auto) 7.4 H (0.8-7.0) Baso % (Auto) 0.2 (0.1-1.2) % Neut # (Auto) 6.75 H (1.78-5.38) K/mm3 Lymph # (Auto) 1.10 L (1.32-3.57) K/mm3 [place] # (Auto) 0.77 (0.30-0.82) K/mm3 Eos # (Auto) 0.69 H (0.04-0.54) K/mm3 Baso # (Auto) 0.02 (0.01-0.08) K/mm3 Sodium 119 L D (136-145) mEq/L Potassium 6.1 H D (3.5-5.1) mEq/L Chloride 88 L (98-107) mEq/L Carbon Dioxide 24 (21-32) mEq/L Anion Gap 13.1 (5-15) BUN 24 H (7-18) mg/dL Creatinine 1.5 H (0.7-1.3) mg/dL Est Cr Clr Drug Dosing 38.00 mL/min Estimated GFR (MDRD) 45 (>60) mL/min BUN/Creatinine Ratio 16.0 (14-18) Glucose 99 (83-115) mg/dL Calcium 8.6 (8.5-10.1) mg/dL Total Bilirubin 0.4 (0.2-1.0) mg/dL AST 21 (15-37) U/L ALT 20 (16-63) U/L Alkaline Phosphatase 142 H (46-116) U/L Total Protein 6.6 (6.4-8.2) g/dl Albumin 3.0 L (3.4-5.0) g/dl Globulin 3.6 gm/dL Albumin/Globulin Ratio 0.8 L (1-2) Lipase 160 (73-393) U/L COVID-19 (RAJ) Negative (NEGATIVE) 01/13/20 01/13/20 Range/Units 00:07 04:17 WBC (4.23-9.07) K/mm3 RBC (4.63-6.08) M/mm3 Hgb (13.7-17.5) gm/dl Hct (40.1-51.0) % MCV (79.0-92.2) fl MCH (25.7-32.2) pg MCHC (32.2-35.5) g/dl RDW Std Deviation (35.1-43.9) fL Plt Count (163-337) K/mm3 MPV (9.4-12.3) fl Neut % (Auto) (34.0-67.9) % Lymph % (Auto) (21.8-53.1) % [place] % (Auto) (5.3-12.2) % Eos % (Auto) (0.8-7.0) Baso % (Auto) (0.1-1.2) % Neut # (Auto) (1.78-5.38) K/mm3 Lymph # (Auto) (1.32-3.57) K/mm3 [place] # (Auto) (0.30-0.82) K/mm3 Eos # (Auto) (0.04-0.54) K/mm3 Baso # (Auto) (0.01-0.08) K/mm3 Sodium 121 L 123 L (136-145) mEq/L Potassium 5.8 H 5.3 H (3.5-5.1) mEq/L Chloride 91 L 93 L (98-107) mEq/L Carbon Dioxide 24 25 (21-32) mEq/L Anion Gap 11.8 10.3 (5-15) BUN 23 H 21 H (7-18) mg/dL Creatinine 1.4 H 1.3 (0.7-1.3) mg/dL Est Cr Clr Drug Dosing 40.71 43.85 mL/min Estimated GFR (MDRD) 49 53 (>60) mL/min BUN/Creatinine Ratio 16.4 16.2 (14-18) Glucose 94 85 (83-115) mg/dL Calcium 8.3 L 8.2 L (8.5-10.1) mg/dL Total Bilirubin (0.2-1.0) mg/dL AST (15-37) U/L ALT (16-63) U/L Alkaline Phosphatase (46-116) U/L Total Protein (6.4-8.2) g/dl Albumin (3.4-5.0) g/dl Globulin gm/dL Albumin/Globulin Ratio (1-2) Lipase (73-393) U/L COVID-19 (RAJ) (NEGATIVE) Result Diagrams: 01/12/20 20:45 01/13/20 10:25 Sepsis Event Note - Evaluation Sepsis Screening Result: No Definite Risk - Focused Exam Vital Signs: Vital Signs Temp Temp Pulse Pulse Resp BP BP 01/13/20 04:21 98.1 F 80 18 118/72 01/12/20 23:19 98.1 F 79 18 115/87 01/12/20 22:46 96.8 F L 78 16 125/66 01/12/20 21:48 96.9 F 72 16 137/71 01/12/20 20:19 97.0 F 74 20 116/66 Pulse Ox 01/13/20 04:21 97 01/12/20 23:19 98 01/12/20 22:46 97 01/12/20 21:48 98 01/12/20 20:19 93 L - Problem List (1) Generalized weakness SNOMED Code(s): 75968729 ICD Code: R53.1 - WEAKNESS Status: Acute Priority: High Current Visit: Yes Problem Details: (2) Hyperkalemia SNOMED Code(s): 06939697 ICD Code: E87.5 - HYPERKALEMIA Status: Acute Priority: High Current Visit: Yes (3) Hyponatremia SNOMED Code(s): 87318730 ICD Code: E87.1 - HYPO-OSMOLALITY AND HYPONATREMIA Status: Acute Priority: High Current Visit: Yes (4) Vomiting SNOMED Code(s): 926934328 ICD Code: R11.10 - VOMITING, UNSPECIFIED Status: Acute Priority: High Current Visit: Yes Qualifiers: Vomiting type: unspecified Vomiting Intractability: unspecified Nausea presence: with nausea Qualified Code(s): R11.2 - Nausea with vomiting, unspecified (5) Gouty arthritis SNOMED Code(s): 10865540 ICD Code: M10.9 - GOUT, UNSPECIFIED Status: Chronic Priority: Low Current Visit: No (6) History of biliary stent insertion SNOMED Code(s): 034853945 ICD Code: Z98.890 - OTHER SPECIFIED POSTPROCEDURAL STATES Status: Chronic Priority: Low Current Visit: No (7) Metastases to the liver Status: Chronic Priority: Medium Current Visit: No (8) Nausea and vomiting SNOMED Code(s): 75589291 ICD Code: R11.2 - NAUSEA WITH VOMITING, UNSPECIFIED Status: Acute Priority: High Current Visit: Yes Qualifiers: Vomiting type: unspecified Vomiting Intractability: non-intractable Qualified Code(s): R11.2 - Nausea with vomiting, unspecified (9) Renal insufficiency SNOMED Code(s): 594508864, 595491012 ICD Code: N28.9 - DISORDER OF KIDNEY AND URETER, UNSPECIFIED Status: Acute Priority: Medium Current Visit: Yes (10) Volume depletion SNOMED Code(s): 018528953 ICD Code: E86.9 - VOLUME DEPLETION, UNSPECIFIED Status: Acute Priority: High Current Visit: Yes Problem Details: (11) Asthma SNOMED Code(s): 437473745 ICD Code: J45.909 - UNSPECIFIED ASTHMA, UNCOMPLICATED Status: Chronic Priority: Medium Current Visit: No Qualifiers: Asthma severity: unspecified severity Asthma persistence: unspecified Asthma complication type: unspecified Qualified Code(s): J45.909 - Unspecified asthma, uncomplicated (12) CKD (chronic kidney disease) stage 3, GFR 30-59 ml/min SNOMED Code(s): 676595924 ICD Code: N18.3 - CHRONIC KIDNEY DISEASE, STAGE 3 (MODERATE) Status: Chronic Priority: Medium Current Visit: No (13) COPD (chronic obstructive pulmonary disease) SNOMED Code(s): 96131884 ICD Code: J44.9 - CHRONIC OBSTRUCTIVE PULMONARY DISEASE, UNSPECIFIED Status: Chronic Priority: Medium Current Visit: No Qualifiers: COPD type: unspecified COPD Qualified Code(s): J44.9 - Chronic obstructive pulmonary disease, unspecified (14) 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 SNOMED Code(s): 124505870, 395653850 ICD Code: C18.9 - MALIGNANT NEOPLASM OF COLON, UNSPECIFIED; C78.7 - SECONDARY MALIG NEOPLASM OF LIVER AND INTRAHEPATIC BILE DUCT Status: Chronic Priority: Medium Current Visit: No (15) Chronic dyspnea SNOMED Code(s): 114419134, 027123671 ICD Code: R06.00 - DYSPNEA, UNSPECIFIED Status: Chronic Priority: Medium Current Visit: No (16) Dupuytren contracture SNOMED Code(s): 907045532 ICD Code: M72.0 - PALMAR FASCIAL FIBROMATOSIS [DUPUYTREN] Status: Chronic Priority: Low Current Visit: No (17) Esophageal stricture SNOMED Code(s): 81911520 ICD Code: K22.2 - ESOPHAGEAL OBSTRUCTION Status: Chronic Priority: Low Current Visit: No (18) Glaucoma SNOMED Code(s): 41764715 ICD Code: H40.9 - UNSPECIFIED GLAUCOMA Status: Chronic Priority: Low Current Visit: No Qualifiers: Glaucoma type: unspecified Laterality: unspecified laterality Qualified Code(s): H40.9 - Unspecified glaucoma (19) History of TIA (transient ischemic attack) SNOMED Code(s): 372513687 ICD Code: Z86.73 - PRSNL HX OF TIA (TIA), AND CEREB INFRC W/O RESID DEFICITS Status: Chronic Priority: Low Current Visit: No (20) History of right nephrectomy SNOMED Code(s): 31052692728802 ICD Code: Z90.5 - ACQUIRED ABSENCE OF KIDNEY Status: Chronic Priority: Medium Current Visit: No (21) History of small bowel obstruction SNOMED Code(s): 345729233274212 ICD Code: Z87.19 - PERSONAL HISTORY OF OTHER DISEASES OF THE DIGESTIVE SYSTEM Status: Chronic Priority: Low Current Visit: No (22) Hypertension SNOMED Code(s): 08182667 ICD Code: I10 - ESSENTIAL (PRIMARY) HYPERTENSION Status: Chronic Priorit y: Medium Current Visit: No Qualifiers: Hypertension type: essential hypertension Qualified Code(s): I10 - Essential (primary) hypertension (23) Macular degeneration SNOMED Code(s): 678789745 ICD Code: H35.30 - UNSPECIFIED MACULAR DEGENERATION Status: Chronic Priority: Low Current Visit: No Qualifiers: Macular degeneration type: unspecified type Eye laterality: unspecified Q ualified Code(s): H35.30 - Unspecified macular degeneration (24) Metastatic cancer to lung SNOMED Code(s): 60397914 ICD Code: C78.00 - SECONDARY MALIGNANT NEOPLASM OF UNSPECIFIED LUNG Status: Chronic Priority: Medium Current Visit: No Qualifiers: Laterality: unspecified laterality Qualified Code(s): C78.00 - Secondary malignant neoplasm of unspecified lung (25) Neoplasm of colon, 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 SNOMED Code(s): 55890729, 433542480 ICD Code: D01.0 - CARCINOMA IN SITU OF COLON Status: Chronic Priority: Medium Current Visit: No (26) Port-A-Cath in place SNOMED Code(s): 584796722 ICD Code: Z95.828 - PRESENCE OF OTHER VASCULAR IMPLANTS AND GRAFTS Status: Chronic Priority: Medium Current Visit: No (27) Psoriasis SNOMED Code(s): 4029493 ICD Code: L40.9 - PSORIASIS, UNSPECIFIED Status: Chronic Priority: Low Current Visit: No Problem List Initiated/Reviewed/Updated: Yes Orders Last 24hrs: Active Orders 24 hr Category Date Time Status Patient Status [ADT] Routine ADT 01/12/20 22:46 Active Activity as Tolerated [RC] .Routine Care 01/12/20 23:13 Active Central Line Assessment [RC] Q2HR Care 01/12/20 20:55 Active Up With Assistance [RC] ASDIRECTED Care 01/12/20 23:13 Active Clear Liquid Diet [DIET] Diet 01/13/20 Breakfast Active Ondansetron [Zofran] Med 01/12/20 23:14 Active 4 mg IVPUSH Q6H PRN Sodium Chloride 0.9% [Normal Saline] 1,000 ml Med 01/13/20 06:30 Active IV ASDIRECTED Sodium Chloride 0.9% [Saline Flush] Med 01/12/20 20:25 Active 10 ml FLUSH ASDIRECTED PRN Peripheral IV Insertion Adult [OM.PC] Stat Oth 01/12/20 20:25 Ordered Resuscitation Status Routine Resus Stat 01/13/20 00:59 Ordered Medication Orders Sodium Chloride (Normal Saline) 1,000 mls @ 75 mls/hr IV ASDIRECTED SHANNON Ondansetron HCl (Zofran) 4 mg IVPUSH Q6H PRN PRN Reason: Nausea Sodium Chloride (Saline Flush) 10 ml FLUSH ASDIRECTED PRN PRN Reason: Keep Vein Open Last Admin: 01/12/20 20:49 Dose: 10 ml Documented by: TONIO Assessment/Plan Comment:: Assessment on admission: * 79yo male with history of lung, rectal, and liver cancer presents to ED due to nausea and vomiting * Following Dr. Loredo - oncology; Reports last vitis was last week and things were stable * History of hyponatremia and taking thermotabs 2 daily * In ED found to be hyponatremic (119), hypokalemic (6.1) and in acute renal injury (creatinine 1.5, GFR 45) * Given 1L IV fluid bolus in in and started on 150 ml/hr NS * Recheck of BNP shows sodium 121-->123; Potassium 5.8-->5.2-->5.1; Creatinine 1.4-->1.3; GFR 49-->53 * N&V has resolved on floor - still reports mild dizziness * Reports longstanding decreased appetite * Denies any infectious symptoms * Abdominal x-ray in ED shows worsening lung nodules, no acute abdominal process. PLAN: Generalized weakness Hyperkalemia Hyponatremia Nausea and vomiting * Continue IV fluids * Increase diet to regular now that N&V has subsided * Start Sodium tablets * Discontinue thermotabs * 1200mL fluid restriction * PRN antiemetics * PT/OT * Unfortunately IV fluids started in ED and given overnight before urine sodium could be collected * Caution with overcorrection of Na * Re-check BMP, Magnesium in AM * Software Database Architect consult Renal insufficiency Volume depletion Vomiting CKD (chronic kidney disease) stage 3, GFR 30-59 ml/min History of right nephrectomy * IV fluids as ordered * Caution with nephrotoxic agents * Antiemetics as ordered Metastases to the liver 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 Loredo last week - no concerns currently * Monitor Asthma COPD (chronic obstructive pulmonary disease) Chronic dyspnea * Continue home PRN albuterol * Monitor for worsening of symptoms - reports baseline SOB currently Glaucoma Macular degeneration * Continue home eye drops * No concerns currently Esophageal stricture History of small bowel obstruction History of biliary stent insertion * No concerns currently History of TIA (transient ischemic attack) Hypertension * No concerns currently * Continue home ASA and metoprolol * Hold home lasix Dupuytren contracture Psoriasis * No concerns currently Gouty arthritis * Continue home allopurinol * No concerns currently Code status: DNR/DNI PCP: Dr. Caldera Oncologist: Dr. Loredo DVT prophylaxis: Home ASA GI prophylaxis: Not indicated Social: Lives with Disposition: Admitted observation status with telemetry for monitored correction of hyponatremia, BASSAM, and hyperkalemia. Hopeful for discharge on 01/14/20. CM/SW consulted. - Mortality Measure Prognosis:: Good
[2020-01-13] MEDS ORDERED: Acetaminophen 325 MG Tab PO PRN (08:56)
[2020-01-13] MEDS ORDERED: Albuterol 6.7 GM Inhaler INH PRN (10:34)
[2020-01-13] MEDS ORDERED: Magnesium Hydroxide 400 MG/5 ML Susp 30 ML Cup PO ONE (11:39)
[2020-01-13] MEDS: Aspirin 325 MG Tab.EC PO SCH (11:53)
[2020-01-13] MEDS: Multivitamins with Minerals/Folic Acid/Lutein/Zeaxanth Tab PO SCH (11:53)
[2020-01-13] MEDS ORDERED: Sodium Chloride/Potassium Chloride Tab PO SCH (15:00)
[2020-01-13] MEDS ORDERED: Bisacodyl 10 MG Supp RECTAL ONE (15:20)
[2020-01-13] MEDS: KETOROLAC 0.5% EYERT SCH ×2 (18:28→20:18)
[2020-01-13] MEDS: Brimonidine 0.2% Ophth Soln 5 ML Bottle EYEBOTH SCH (20:17)
[2020-01-13] MEDS: Sodium Chloride 1 GM Tab PO SCH (20:18)
[2020-01-14] MEDS: Sodium Chloride 0.9% 1,000 ML IV SCH (03:17)
[2020-01-14] MEDS: KETOROLAC 0.5% EYERT SCH (08:04)
[2020-01-14] MEDS: Brimonidine 0.2% Ophth Soln 5 ML Bottle EYEBOTH SCH (08:18)
[2020-01-14] MEDS ORDERED: Magnesium Oxide 400 MG Tab PO ONE (08:22)
[2020-01-14 08:35] VITALS: BP 133/86; PULSE 74
--- NOTE | 2020-01-14 08:48 | PCM.DCSUM1 ---
Discharge Summary - Hospital Course HPI Initial Comments: This is a 79yo male who presented to ED on 01/12/2020 with nausea and vomiting. He reports he also was having generalized weakness and dizziness which started today. Decreased appetite. Reports he is only been able to keep down some Ensure and has vomited his meals. Reports he has had similar symptoms in the past. No abdominal pain. He has a home prescription for Zofran which he took with mild improvement of symptoms. States he has a history of hyponatremia with similar symptoms and wonders if this is not the problem currently. Denies any cough, fever, chills, chest pain, difficulty breathing. In the ED he was afebrile with a temp of 98.1. Pulse was 79. Respirations 18. Blood pressure 115/87. Pulse ox 90% on room air. Twelve-lead EKG was obtained showing a sinus rhythm with right bundle branch block. CBC was grossly normal however his CMP revealed his sodium to be very low at 119. Potassium was high at 6.1. Chloride was low at 88. Creatinine was high at 1.5. GFR was 45. COVID-19 screen was negative. He was given a 1 L fluid bolus, which was later decreased 250 mL an hour. He is also given Zofran. Bridge orders were placed for repeat BMP overnight and in the morning. Abdominal x-ray was obtained showing multiple nodules within the chest, some of which have increased in size from prior study which is felt compatible with worsening metastatic disease. Nothing acute is appreciated within the abdomen. He carries a history of glaucoma, macular degeneration, hypertension, COPD, stress asthma, bowel obstruction, GERD, esophagitis, liver mass, dysphagia, ileus, PEG tube placement, small bowel obstruction, chronic renal insufficiency, nephrectomy, arthritis, Butrans contracture, TIA, depression, colon cancer, liver cancer, lung cancer, and psoriasis. He reported has been off chemo for the past 9 months. He does have a Port-A-Cath in his left chest. Primary care provider is Dr. Caldera. He does see Dr. Loredo for oncology. Reports he had an oncology appointment last week and Dr. Loredo reported everything was stable. He is a former smoker who quit approximately 20 years ago. Diagnosis: Stroke: No - Discharge Data Discharge Date: 01/14/20 (Admit date: 01/13/20) Discharge Disposition: Home, Self-Care 01 Condition: Good - Referral to Home Health Primary Care Physician: Brendan Caldera MD - Discharge Diagnosis/Problem(s) (1) Generalized weakness SNOMED Code(s): 80447522 ICD Code: R53.1 - WEAKNESS Status: Resolved Priority: High Current Visit: Yes Problem Details: (2) Hyperkalemia SNOMED Code(s): 58659628 ICD Code: E87.5 - HYPERKALEMIA Status: Resolved Priority: High Current Visit: Yes (3) Hyponatremia SNOMED Code(s): 76324747 ICD Code: E87.1 - HYPO-OSMOLALITY AND HYPONATREMIA Status: Acute Priority: High Current Visit: Yes (4) Vomiting SNOMED Code(s): 426974033 ICD Code: R11.10 - VOMITING, UNSPECIFIED Status: Resolved Priority: High Current Visit: Yes Qualifiers: Vomiting type: unspecified Vomiting Intractability: unspecified Nausea presence: with nausea Qualified Code(s): R11.2 - Nausea with vomiting, unspecified (5) Gouty arthritis SNOMED Code(s): 36704963 ICD Code: M10.9 - GOUT, UNSPECIFIED Status: Chronic Priority: Low Current Visit: No (6) History of biliary stent insertion SNOMED Code(s): 450740612 ICD Code: Z98.890 - OTHER SPECIFIED POSTPROCEDURAL STATES Status: Chronic Priority: Low Current Visit: No (7) Metastases to the liver Status: Chronic Priority: Medium Current Visit: No (8) Nausea and vomiting SNOMED Code(s): 74508326 ICD Code: R11.2 - NAUSEA WITH VOMITING, UNSPECIFIED Status: Resolved Priority: High Current Visit: Yes Qualifiers: Vomiting type: unspecified Vomiting Intractability: non-intractable Qualified Code(s): R11.2 - Nausea with vomiting, unspecified (9) Renal insufficiency SNOMED Code(s): 193990006, 981379493 ICD Code: N28.9 - DISORDER OF KIDNEY AND URETER, UNSPECIFIED Status: Resolved Priority: Medium Current Visit: Yes (10) Volume depletion SNOMED Code(s): 001053617 ICD Code: E86.9 - VOLUME DEPLETION, UNSPECIFIED Status: Resolved Priority : High Current Visit: Yes Problem Details: (11) Asthma SNOMED Code(s): 147533624 ICD Code: J45.909 - UNSPECIFIED ASTHMA, UNCOMPLICATED Status: Chronic Priority: Medium Current Visit: No Qualifiers: Asthma severity: unspecified severity Asthma persistence: unspecified Asthma complication type: unspecified Qualified Code(s): J45.909 - Unspecified asthma, uncomplicated (12) CKD (chronic kidney disease) stage 3, GFR 30-59 ml/min SNOMED Code(s): 428695827 ICD Code: N18.3 - CHRONIC KIDNEY DISEASE, STAGE 3 (MODERATE) Status: Resolved Priority: Medium Current Visit: No (13) COPD (chronic obstructive pulmonary disease) SNOMED Code(s): 40068779 ICD Code: J44.9 - CHRONIC OBSTRUCTIVE PULMONARY DISEASE, UNSPECIFIED Status: Chronic Priority: Medium Current Visit: No Qualifiers: COPD type: unspecified COPD Qualified Code(s): J44.9 - Chronic obstructive pulmonary disease, unspecified (14) 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 SNOMED Code(s): 142037961, 960998055 ICD Code: C18.9 - MALIGNANT NEOPLASM OF COLON, UNSPECIFIED; C78.7 - SECONDARY MALIG NEOPLASM OF LIVER AND INTRAHEPATIC BILE DUCT Status: Chronic Priority: Medium Current Visit: No (15) Chronic dyspnea SNOMED Code(s): 426845477, 486336282 ICD Code: R06.00 - DYSPNEA, UNSPECIFIED Status: Chronic Priority: Medium Current Visit: No (16) Dupuytren contracture SNOMED Code(s): 793701774 ICD Code: M72.0 - PALMAR FASCIAL FIBROMATOSIS [DUPUYTREN] Status: Chronic Priority: Low Current Visit: No (17) Esophageal stricture SNOMED Code(s): 26219091 ICD Code: K22.2 - ESOPHAGEAL OBSTRUCTION Status: Chronic Priority: Low Current Visit: No (18) Glaucoma SNOMED Code(s): 39569005 ICD Code: H40.9 - UNSPECIFIED GLAUCOMA Status: Chronic Priority: Low Current Visit: No Qualifiers: Glaucoma type: unspecified Laterality: unspecified laterality Qualified Code(s): H40.9 - Unspecified glaucoma (19) History of TIA (transient ischemic attack) SNOMED Code(s): 313156594 ICD Code: Z86.73 - PRSNL HX OF TIA (TIA), AND CEREB INFRC W/O RESID DEFICITS Status: Chronic Priority: Low Current Visit: No (20) History of right nephrectomy SNOMED Code(s): 13214367420591 ICD Code: Z90.5 - ACQUIRED ABSENCE OF KIDNEY Status: Chronic Priority: Medium Current Visit: No (21) History of small bowel obstruction SNOMED Code(s): 002234802352672 ICD Code: Z87.19 - PERSONAL HISTORY OF OTHER DISEASES OF THE DIGESTIVE SYSTEM Status: Chronic Priority: Low Current Visit: No (22) Hypertension SNOMED Code(s): 55218025 ICD Code: I10 - ESSENTIAL (PRIMARY) HYPERTENSION Status: Chronic Priority: Medium Current Visit: No Qualifiers: Hypertension type: essential hypertension Qualified Code(s): I10 - Essential (primary) hypertension (23) Macular degeneration SNOMED Code(s): 199481438 ICD Code: H35.30 - UNSPECIFIED MACULAR DEGENERATION Status: Chronic Priority: Low Current Visit: No Qualifiers: Macular degeneration type: unspecified type Eye laterality: unspecified Qualified Code(s): H35.30 - Unspecified macular degeneration (24) Metastatic cancer to lung SNOMED Code(s): 20223068 ICD Code: C78.00 - SECONDARY MALIGNANT NEOPLASM OF UNSPECIFIED LUNG Status: Chronic Priority: Medium Current Visit: No Qualifiers: Laterality: unspecified laterality Qualified Code(s): C78.00 - Secondary malignant neoplasm of unspecified lung (25) Neoplasm of colon, 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 SNOMED Code(s): 25508798, 613542115 ICD Code: D01.0 - CARCINOMA IN SITU OF COLON Status: Chronic Priority: Medium Current Visit: No (26) Port-A-Cath in place SNOMED Code(s): 263715292 ICD Code: Z95.828 - PRESENCE OF OTHER VASCULAR IMPLANTS AND GRAFTS Status: Chronic Priority: Medium Current Visit: No (27) Psoriasis SNOMED Code(s): 4772503 ICD Code: L40.9 - PSORIASIS, UNSPECIFIED Status: Chronic Priority: Low Current Visit: No - Patient Summary/Data Consults: Consultations 01/13/20 08:56 Consult to Case Management/Community Services Manager [CONS] Routine OT Evaluation and Treatment [CONS] Routine PT Evaluation and Treatment [CONS] Routine 01/13/20 08:57 Consult to Non Profit Job Titles [CONS] Routine Consult to Spiritual Care [CONS] Routine Labs Pending at D/C: None Recommended Follow-up Testing/Procedures: Follow-up with primary care provider within 5-7 days of discharge, sooner if needed. Follow-up with Oncology as scheduled prior Hospital Course: Qi was admitted to the hospital floor with hyponatremia, hyperkalemia, and generalized weakness. He reports that he does have a longstanding history of hyponatremia and he has in fact been hospitalized for this in the past. He is on Thermotabs twice daily. Unfortunately, he was started on IV fluids and given a 1L bolus in the ED prior to any urine osmolality or urine sodium labs being obtained. Throughout his stay no abnormalities of been noted on telemetry. His weakness has resolved and he reports he feels very good. He has been up working with PT and OT. He has been ambulating around the department with a walker. He denies any dizziness, weakness, cloudy feeling, nausea, or headaches. He has been eating. He did report some constipation on admission but he did have a large bowel movement yesterday and states he feels very good. Denies any other symptoms. His sodium has increased to 129 and his potassium did come down to 5.1. His GFR has improved to greater than 60 and his creatinine is come down to 1.1. Magnesium was 1.9 he was given a 400 mg p.o. supplement prior to discharge. Labs otherwise have been very stable. Discussed case with Dr. Noble who believes patient is ready for discharge. We will switch his Ther motabs to straight sodium chloride tabs 1 g twice daily. He reports that he has a follow-up appointment with his oncologist in approximately 3 weeks. Recommend follow-up with oncology as scheduled. Recommend follow-up with primary care provider within 5 to 7 days of discharge. Recommend repeat CBC, CMP, and magnesium at that time. Other home medications were otherwise continued. He was on a fluid restriction while here and we did discuss continuing to try to be around 2 L of fluid intake daily, as we do not want him to completely avoid fluid intake. He will be discharged today home. He was advised to return the emergency room or contact his primary provider should symptoms return or worsen. - Patient Instructions Diet: Usual Diet as Tolerated, Fluid Restriction Fluid Restriction: 2000 mL Activity: As Tolerated Driving: Do Not Drive (today ) Showering/Bathing: May Shower Notify Provider of: Fever, Increased Pain, Nausea and/or Vomiting Other/Special Instructions: Follow-up with primary care provider within 5-7 days of discharge, sooner if needed. Stop taking your thermotabs and start taking the newly prescribed salt tabs. These new tabs do not contain any potassium. We are recommending a fluid restriction. Monitor your fluid intake. Try to drink less than 2L daily. Do not stop drinking fluid all together. Follow-up with your oncologist as per before. Should symptoms return or worsen contact your primary care provider or return to the Emergency Department. - Discharge Plan *PRESCRIPTION DRUG MONITORING PROGRAM REVIEWED*: No *COPY OF PRESCRIPTION DRUG MONITORING REPORT IN PATIENT HEATHER: No Prescriptions/Med Rec: Sodium Chloride 1 gm PO BID #40 tablet Home Medications: Home Meds Lutein/Minerals/Vit A,C & E [I-Jil] 1 tab PO DAILY 02/25/19 [History] allopurinoL [Zyloprim] 50 mg PO DAILY 02/25/19 [History] Albuterol Sulfate [Proair Hfa] 2 puff INH Q4HR PRN 12/16/19 [History] Aspirin 325 mg PO DAILY 12/16/19 [History] Brimonidine [Alphagan P 0.15% Ophth Soln] 1 drop EYEBOTH BID 12/16/19 [History] Furosemide [Lasix] 20 mg PO DAILY 12/16/19 [History] Ondansetron [Zofran] 4 mg PO TID PRN 12/16/19 [History] Prochlorperazine Maleate [Compazine] 10 mg PO QID PRN 12/16/19 [History] chlorproMAZINE [Thorazine] 25 mg PO Q6H PRN 12/16/19 [History] Metoprolol Succinate [Toprol XL 50mg] 75 mg PO DAILY #45 tab.er 12/20/19 [Rx] Ketorolac [Acular 0.5% Ophth Soln] 1 drop EYERT QID 01/13/20 [History] Sodium Chloride 1 gm PO BID #40 tablet 01/14/20 [Rx] Oxygen Therapy Mode: Room Air Patient Handouts: Diabetes Mellitus and Sick Day Management Referrals: Brendan Caldera MD [Primary Care Provider] - - Discharge Summary/Plan Comment DC Time >30 min.: Yes (45 mins ) - General Info Date of Service: 01/14/20 Admission Dx/Problem (Free Text: Admission Diagnosis/Problem Admission Diagnosis/Problem Hyperkalemia Functional Status: Reports: Pain Controlled, Tolerating Diet, Ambulating, Urinating. Denies: New Symptoms - Review of Systems General: Reports: No Symptoms. Denies: Fever, Weakness, Fatigue, Malaise, Chills HEENT: Reports: No Symptoms. Denies: Headaches, Sore Throat Pulmonary: Reports: No Symptoms. Denies: Shortness of Breath (at baseline currently ), Pleuritic Chest Pain, Cough, Sputum, Wheezing Cardiovascular: Reports: No Symptoms. Denies: Chest Pain, Palpitations, Dyspnea on Exertion (at baseline currently ) Gastrointestinal: Reports: No Symptoms. Denies: Abdominal Pain, Constipation (Had BM yesterday and reports he feels much better ), Diarrhea, Nausea, Vomiting Genitourinary: Reports: No Symptoms. Denies: Pain Musculoskeletal: Reports: No Symptoms Skin: Reports: No Symptoms. Denies: Cyanosis Neurological: Reports: No Symptoms. Denies: Confusion, Difficulty Walking, Gait Disturbance Psychiatric: Reports: No Symptoms - Patient Data Vitals - Most Recent: Last Vital Signs Temp 98.1 F 01/14/20 07:12 Pulse 74 01/14/20 07:12 Resp 20 01/14/20 07:12 BP 133/86 01/14/20 07:12 Pulse Ox 97 01/14/20 07:12 Weight - Most Recent: 158 lb 4.8 oz I&O - Last 24 hours: Intake & Output 01/13/20 01/14/20 01/14/20 22:59 06:59 14:59 Intake Total 530 836 Output Total 1050 625 Balance -520 211 Lab Results - Last 24 hrs: Laboratory Results - last 24 hr 01/13/20 01/14/20 01/14/20 Range/Units 10:25 06:10 06:10 WBC 7.10 (4.23-9.07) K/mm3 RBC 3.84 L (4.63-6.08) M/mm3 Hgb 10.1 L (13.7-17.5) gm/dl Hct 31.4 L (40.1-51.0) % MCV 81.8 (79.0-92.2) fl MCH 26.3 (25.7-32.2) pg MCHC 32.2 (32.2-35.5) g/dl RDW Std Deviation 41.1 (35.1-43.9) fL Plt Count 252 (163-337) K/mm3 MPV 9.4 (9.4-12.3) fl Neut % (Auto) 65.0 (34.0-67.9) % Lymph % (Auto) 14.6 L (21.8-53.1) % Wilkin % (Auto) 11.1 (5.3-12.2) % Eos % (Auto) 8.9 H (0.8-7.0) Baso % (Auto) 0.3 (0.1-1.2) % Neut # (Auto) 4.61 (1.78-5.38) K/mm3 Lymph # (Auto) 1.04 L (1.32-3.57) K/mm3 Wilkin # (Auto) 0.79 (0.30-0.82) K/mm3 Eos # (Auto) 0.63 H (0.04-0.54) K/mm3 Baso # (Auto) 0.02 (0.01-0.08) K/mm3 Sodium 123 L 129 L (136-145) mEq/L Potassium 5.1 5.1 (3.5-5.1) mEq/L Chloride 95 L 98 (98-107) mEq/L Carbon Dioxide 22 23 (21-32) mEq/L Anion Gap 11.1 13.1 (5-15) BUN 18 16 (7-18) mg/dL Creatinine 1.3 1.1 (0.7-1.3) mg/dL Est Cr Clr Drug Dosing 43.85 51.82 mL/min Estimated GFR (MDRD) 53 > 60 (>60) mL/min BUN/Creatinine Ratio 13.8 L 14.5 (14-18) Glucose 143 H 81 L (83-115) mg/dL Calcium 8.0 L 8.2 L (8.5-10.1) mg/dL Magnesium 1.9 (1.8-2.4) mg/dl Med Orders - Current: Current Medications Acetaminophen (Tylenol) 650 mg PO Q4H PRN PRN Reason: Pain (Mild 1-3)/fever Albuterol (Proventil Hfa) 0 gm INH Q4H PRN PRN Reason: Shortness of Breath Allopurinol (Zyloprim) 50 mg PO DAILY [facility] Aspirin (Ecotrin) 325 mg PO DAILY [facility] Last Admin: 01/13/20 11:53 Dose: Not Given Documented by: Brimonidine Tartrate (Alphagan 0.2% Ophth Soln) 0 ml EYEBOTH BID [facility] Last Admin: 01/14/20 08:18 Dose: Not Given Documented by: Furosemide (Lasix) 20 mg PO DAILY [facility] Sodium Chloride (Normal Saline) 1,000 mls @ 75 mls/hr IV ASDIRECTED [facility] Last Admin: 01/14/20 03:17 Dose: 75 mls/hr Documented by: Ketorolac Tromethamine (Acular 0.5% Ophth Soln) 0 ml EYERT QID [facility] Last Admin: 01/14/20 08:04 Dose: 1 drop Documented by: Metoprolol Succinate (Toprol Xl) 75 mg PO DAILY [facility] Ondansetron HCl (Zofran) 4 mg IVPUSH Q6H PRN PRN Reason: Nausea Senna (Senna) 17.2 mg PO DAILY [facility] Sodium Chloride (Saline Flush) 10 ml FLUSH ASDIRECTED PRN PRN Reason: Keep Vein Open Last Admin: 01/12/20 20:49 Dose: 10 ml Documented by: Sodium Chloride (Sodium Chloride) 1 gm PO TID [facility] Last Admin: 01/13/20 20:18 Dose: 1 gm Documented by: Vit A/Vit C/Vit E/Selen/Cu/Zn/Lutei (Icaps Mv) 1 tab PO DAILY [facility] Last Admin: 01/13/20 11:53 Dose: Not Given Documented by: Discontinued Medications Bisacodyl (Dulcolax) 10 mg RECTAL ONETIME ONE Stop: 01/13/20 15:21 Last Admin: 01/13/20 15:28 Dose: 10 mg Documented by: Sodium Chloride (Normal Saline) 1,000 mls @ 999 mls/hr IV ONETIME [facility] Last Admin: 01/12/20 20:49 Dose: 999 mls/hr Documented by: Sodium Chloride (Normal Saline) 1,000 mls @ 150 mls/hr IV ASDIRECTED [facility] Last Admin: 01/13/20 04:27 Dose: 150 mls/hr Documented by: Magnesium Hydroxide (Milk Of Magnesia) 30 ml PO ONETIME ONE Stop: 01/13/20 11:40 Last Admin: 01/13/20 11:58 Dose: 30 ml Documented by: Magnesium Oxide (Magnesium Oxide) 400 mg PO ONETIME ONE Stop: 01/14/20 08:23 Oral Electrolytes (Thermotabs) 1 each PO TID [facility]ANN[facility] Last Admin: 01/13/20 15:28 Dose: 1 each Documented by: - Exam Quality Assessment: Reports: DVT Prophylaxis. Denies: Supplemental Oxygen General: Reports: Alert, Oriented, Cooperative, No Acute Distress HEENT: Reports: Pupils Equal, Pupils Reactive, Mucous Membr. Moist/[place] Neck: Reports: Supple, Trachea Midline Lungs: Reports: Clear to Auscultation, Normal Respiratory Effort Cardiovascular: Reports: Regular Rate, Regular Rhythm, Other (Port in left chest ) GI/Abdominal Exam: Normal Bowel Sounds, Soft, Non-Tender, No Organomegaly, No Distention (Male) Exam: Deferred Rectal (Males) Exam: Deferred Back Exam: Reports: Normal Inspection, Full Range of Motion Extremities: Normal Inspection, Normal Range of Motion, Non-Tender, No Pedal Edema, Normal Capillary Refill Skin: Reports: Warm, Dry, Intact Neurological: Reports: No New Focal Deficit Psy/Mental Status: Reports: Alert, Normal Affect, Normal Mood
[2020-01-14] MEDS ORDERED: Sennosides 8.6 MG Tab PO SCH (09:00)
[2020-01-14] MEDS ORDERED: Metoprolol Succinate 50 MG Tab.ER **PTOM PO SCH (09:00)
[2020-01-14] MEDS ORDERED: Furosemide 20 MG Tab PO SCH (09:00)
[2020-01-14] MEDS ORDERED: Allopurinol 100 MG Tab **PTOM PO SCH (09:00)
[2020-01-14] MEDS: Aspirin 325 MG Tab.EC PO SCH (09:03)
[2020-01-14] MEDS: Multivitamins with Minerals/Folic Acid/Lutein/Zeaxanth Tab PO SCH (09:04)
[2020-01-14] MEDS: Sodium Chloride 1 GM Tab PO SCH (09:04)
== END 2020-01-14 11:02 | disposition home or self-care (01) ==
LOC: JD.ED 19:59 → JD.MS 22:46
PROVIDERS: ADMIT Family Medicine; ATTEND Family Medicine
DX: R53.1 Weakness (principal); R11.2 Nausea with vomiting, unspecified; E87.5 Hyperkalemia; E87.1 Hypo-osmolality and hyponatremia; K21.9 Gastro-esophageal reflux disease without esophagitis; I12.9 Hypertensive chronic kidney disease with stage 1 through stage 4 chronic kidney disease, or unspecified chronic kidney disease; N18.9 Chronic kidney disease, unspecified; F32.9 Major depressive disorder, single episode, unspecified; J44.9 Chronic obstructive pulmonary disease, unspecified; M10.9 Gout, unspecified; E86.9 Volume depletion, unspecified; N18.3 Chronic kidney disease, stage 3 (moderate); C18.9 Malignant neoplasm of colon, unspecified; C78.7 Secondary malignant neoplasm of liver and intrahepatic bile duct; C78.00 Secondary malignant neoplasm of unspecified lung; R06.00 Dyspnea, unspecified; M72.0 Palmar fascial fibromatosis [Dupuytren]; Z20.828 Contact with and (suspected) exposure to other viral communicable diseases; Z88.1 Allergy status to other antibiotic agents; Z98.890 Other specified postprocedural states; Z88.0 Allergy status to penicillin; Z88.2 Allergy status to sulfonamides; Z87.891 Personal history of nicotine dependence; Z88.8 Allergy status to other drugs, medicaments and biological substances; Z87.19 Personal history of other diseases of the digestive system; Z86.73 Personal history of transient ischemic attack (TIA), and cerebral infarction without residual deficits; Z90.5 Acquired absence of kidney; Z86.69 Personal history of other diseases of the nervous system and sense organs; Z95.828 Presence of other vascular implants and grafts; Z87.2 Personal history of diseases of the skin and subcutaneous tissue
CPT/HCPCS: 36415; 74019; 80048; 80053; 83690; 83735; 85025; 93005; 96360; 96361; 97110; 97162; 97165; 99285; A9270; J1642; J7030; U0002; 93010; 99217; 99220; 99284; G0378

== ENCOUNTER 2020-03-16 10:35 | Day surgery (SDC) | payer MEDICARE, BC ==
[~2020-03-16 10:35] MED LIST changes: +Lactated Ringers 1,000 ML IV SCH; +Lidocaine 1%/Sod Bicarbonate in NS 8.4% 1 ML Syringe IDERM PRN; -Phenylephrine 2.5% Ophth Soln 2 ML Bot EYERT SCH; +Sodium Chloride 0.9% 10 ML Syringe FLUSH PRN; -Tropicamide 1% Ophth Soln 15 ML Bottle EYERT SCH
[2020-03-16] MEDS ORDERED: Sodium Chloride 0.9% 1,000 ML IV SCH (12:30)
--- NOTE | 2020-03-16 13:18 | PCM.PREANE ---
Preanesthetic Assessment - Procedure Proposed Procedure: Colonoscopy - Anesthesia/Transfusion/Family Hx Anesthesia History: Prior Anesthesia Without Reaction Family History of Anesthesia Reaction: No Transfusion History: Prior Transfusion Without Reaction - Review of Systems General: No Symptoms Pulmonary: Shortness of Breath (with activity. No chest pain. Comfortable today. No SOB with walking into hospital and changing clothing. ), Other (COPD, Former Smoker. ) Cardiovascular: No Symptoms Gastrointestinal: Difficulty Swallowing (Multiple occurances of food getting stuck in this esophagus. Dysphagia.) Neurological: No Symptoms Other: Reports: None (Nephrectomy, CRI. Bowel resection for Colon Cancer in 2014, in ICU for infection, tracheostomy. Length of stay 66 days. ), Liver Problems (Liver Mass and Cancer. Removed mass in remission. ) - Physical Assessment NPO Status Date: 03/16/20 NPO Status Time: 07:30 Vital Signs: Last Vital Signs Temp 36.2 C 03/16/20 11:00 Pulse 80 03/16/20 11:00 Resp 18 03/16/20 11:00 BP 123/73 03/16/20 11:00 Pulse Ox 94 L 03/16/20 11:00 Height: 1.73 m Weight: 68.946 kg ASA Class: 3 Mental Status: Alert & Oriented x3 Airway Class: Mallampati = 2 Dentition: Reports: Dentures (upper and lower) Thyro-Mental Finger Breadths: 2 Mouth Opening Finger Breadths: 3 ROM/Head Extension: Full (Full ROM, neck is sore today.) Lungs: Clear to Auscultation, Normal Respiratory Effort, Decreased Breath Sounds Cardiovascular: Regular Rate, Regular Rhythm - Imaging/EKG Impressions: EKG Sinus Miguel Angel with Rt BBB - Allergies Allergies/Adverse Reactions: Allergies Allergy/AdvReac Type Severity Reaction Status Date / Time azithromycin Allergy Severe Anaphylactic Verified 03/15/20 12:27 Shock gatifloxacin [From Tequin] Allergy Severe Anaphylactic Verified 03/15/20 12:27 Shock lansoprazole [From Prevacid] Allergy Severe Anaphylactic Verified 03/15/20 12:27 Shock Penicillins Allergy Severe Anaphylactic Verified 03/15/20 12:27 Shock omeprazole [From Prilosec] Allergy Mild Cannot Verified 03/15/20 12:27 Remember Sulfa (Sulfonamide Allergy Mild Rash Verified 03/15/20 12:27 Antibiotics) - Anesthesia Plan Beta Pritesh: Metoprolol Med Last Dose Date: 03/16/20 Med Last Dose Time: 07:30 - Acknowledgements Anesthesia Type Planned: MAC Pt an Appropriate Candidate for the Planned Anesthesia: Yes Alternatives and Risks of Anesthesia Discussed w Pt/Guardian: Yes Pt/Guardian Understands and Agrees with Anesthesia Plan: Yes PreAnesthesia Questionnaire HEENT History: Reports: Glaucoma, Macular Degeneration Other HEENT History: wears eyeglasses, has upper and lower dentures Cardiovascular History: Reports: Hypertension Respiratory History: Reports: COPD, SOB Other Respiratory History: stress asthma Gastrointestinal History: Reports: Bowel Obstruction, GERD Other Gastrointestinal History: esophagitis, liver mass, dysphagia, ileus, peg tube placement, small bowel obstruction Genitourinary History: Reports: Chronic Renal Insuffiency, Other (See Below) Other Genitourinary History: Rt nephrectomy, BASSAM, CKD III, RENAL INSUFFICIENCY BREAST PULLER History: Reports: None Musculoskeletal History: Reports: Arthritis, Gout Other Musculoskeletal History: dupuytren's contracture Neurological History: Reports: TIA Other Neuro History: TIAs Psychiatric History: Reports: Depression Endocrine/Metabolic History: Reports: None Hematologic History: Reports: None Immunologic History: Reports: None Oncologic (Cancer) History: Reports: Colon, Liver, Lung Other Oncologic History: off of chemo for the past 9 months, with james cath L chest Dermatologic History: Reports: Psoriasis - Infectious Disease History Infectious Disease History: Reports: None - Past Surgical History Head Surgeries/Procedures: Reports: None HEENT Surgical History: Reports: Cataract Surgery, Naso-Sinus Surgery Other HEENT Surgeries/Procedures: Bilateral cataract, sinus sx to right nare Cardiovascular Surgical History: Reports: Vascular Surgery Respiratory Surgical History: Reports: Tracheostomy Other Respiratory Surgeries/Procedures: right lung resection in 1999, bronchoscopy broch stents GI Surgical History: Reports: Appendectomy, Cholecystectomy, Colon, Colonoscopy, Colostomy, EGD, Other (See Below) Other GI Surgeries/Procedures: bile duct stent placed 12/12/2019, RIGHT COLECTOMY Female Surgical History: Reports: None Male Surgical History: Reports: Nephrectomy Other Male Surgeries/Procedures: right kidney removed Endocrine Surgical History: Reports: None Neurological Surgical History: Reports: None Musculoskeletal Surgical History: Reports: Other (See Below) Other Musculoskeletal Surgeries/Procedures:: left ankle surgery 1978 Oncologic Surgical History: Reports: Other (See Below) Dermatological Surgical History: Reports: Skin Biopsy - SUBSTANCE USE Tobacco Use Status *Q: Former Tobacco User Recreational Drug Use History: No - HOME MEDS Home Medications: Home Meds Lutein/Minerals/Vit A,C & E [I-Jil] 1 tab PO DAILY 02/25/19 [History] Albuterol Sulfate [Proair Hfa] 2 puff INH Q4HR PRN 12/16/19 [History] Aspirin 325 mg PO BID 12/16/19 [History] Brimonidine [Alphagan P 0.15% Ophth Soln] 1 drop EYEBOTH BID 12/16/19 [History] Furosemide [Lasix] 20 mg PO DAILY 12/16/19 [History] Ondansetron [Zofran] 4 mg PO TID PRN 12/16/19 [History] Sodium Chloride 1 gm PO BID #40 tablet 01/14/20 [Rx] Calcium Carbonate [Tums] 500 mg PO DAILY 03/15/20 [History] Metoprolol Succinate [Toprol XL 50mg] 50 mg PO DAILY 03/15/20 [History] Multivitamin 1 tab PO DAILY 03/15/20 [History] Pantoprazole Sodium [Protonix] 20 mg PO DAILY 03/15/20 [History] Regorafenib [Stivarga] 80 mg PO DAILY 03/15/20 [History] Sennosides [Senokot] 1 - 2 tab PO DAILY 03/15/20 [History] - CURRENT (IN HOUSE) MEDS Current Meds: Current Medications Lactated Ringer's (Ringers, Lactated) 1,000 mls @ 125 mls/hr IV ASDIRECTED SHANNON Stop: 03/16/20 23:00 Last Admin: 03/16/20 11:12 Dose: 125 mls/hr Documented by: Sodium Chloride (Normal Saline) 1,000 mls @ 125 mls/hr IV ASDIRECTED SHANNON Stop: 03/16/20 18:00 Last Admin: 03/16/20 12:30 Dose: 125 mls/hr Documented by: Lidocaine/Sodium Bicarbonate (Buffered Lidocaine 1% In Ns 8.4%) 0.25 ml IDERM ONETIME PRN PRN Reason: Prior to IV Start Stop: 03/16/20 18:00 Sodium Chloride (Saline Flush) 10 ml FLUSH ASDIRECTED PRN PRN Reason: Keep Vein Open Stop: 03/16/20 18:00 Discontinued Medications Lactated Ringer's (Ringers, Lactated) 1,000 mls @ 125 mls/hr IV ASDIRECTED SHANNON Lidocaine/Sodium Bicarbonate (Buffered Lidocaine 1% In Ns 8.4%) 0.25 ml IDERM ONETIME PRN PRN Reason: Prior to IV Start Sodium Chloride (Saline Flush) 10 ml FLUSH ASDIRECTED PRN PRN Reason: Keep Vein Open
[2020-03-16] MEDS ORDERED: Propofol 200 MG/20 ML SDV ONE (14:07)
--- NOTE | 2020-03-16 14:36 | PCM.OPNOTE ---
- General Post-Op/Procedure Note Date of Surgery/Procedure: 03/16/20 Operative Procedure(s): colonoscopy Findings: polypoid mucosa in the descending colon Pre Op Diagnosis: Abdominal pain and change in bowel habits Post-Op Diagnosis: same Anesthesia Technique: General ET Tube Primary Surgeon: Tova Allred Anesthesia Provider: Erika Holliday Pathology: descending colon biopsy Fluid Replacement, Intraop: 400 Output, Urine Amount: 0 EBL in mLs: 0 Complications: none apparent Condition: Good
--- NOTE | 2020-03-16 14:40 | PCM48HPAN ---
Post Anesthesia Note - EVALUATION WITHIN 48HRS OF ANESTHETIC Vital Signs in Normal Range: Yes Patient Participated in Evaluation: Yes Respiratory Function Stable: Yes Airway Patent: Yes Cardiovascular Function Stable: Yes Hydration Status Stable: Yes Pain Control Satisfactory: Yes Nausea and Vomiting Control Satisfactory: Yes Mental Status Recovered: Yes Vital Signs: Last Vital Signs Temp 36.2 C 03/16/20 11:00 Pulse 80 03/16/20 11:00 Resp 18 03/16/20 11:00 BP 123/73 03/16/20 11:00 Pulse Ox 94 L 03/16/20 11:00 1435 120/67 66 16 95-99% 97.7F
--- NOTE | 2020-03-16 14:43 | PCM.PRNOTE ---
- Free Text/Narrative Note: Operative Report Date of Surgery/Procedure: March 16, 2020 Operative Procedure: Colonoscopy Pre Op Diagnosis: abdominal pain and change in bowel habits Post-Op Diagnosis: same Surgeon: Tova Allred MD Anesthesia Technique: MAC Anesthesia Provider: Erika Holliday CRNA IV Fluid Replacement, Intraop: 400cc Output, Urine Amount: 0cc EBL : 0cc Findings: polypoid mucosa in descending colon Specimens: descending colon biopsy Indication: The patient is a 79 year-old gentleman who presented to the outpatient clinic requesting evaluation of his abdominal symptoms. The patient has a history of colon cancer and has had recent abdominal pain and change in bowel habits. We discussed the procedure of a colonoscopy including the polypectomy and biopsy. Risks of bleeding and perforation were discussed, the patient understood and wished to proceed. Written and consent was obtained Description of the procedure: The patient was brought to the endoscopy suite and placed in the left lateral decubitus position. Appropriate monitors were applied. The patient was given MAC anesthesia. An anorectal examination was performed, revealing no external abnormalities. The scope was placed into the rectum and advanced to the ileocolonic anastomosis without difficulty. The patients anastomosis was care fully evaluated and was without abnormality. At this point, the scope was withdrawn, paying careful attention to the mucosa. The patient had adequate bowel prep, allowing for visualization of 85% of the mucosa after washing and suctioning. Polypoid mucosa was noted in the descending colon, and this was biopsied using cold biopsy forceps. In the rectum, the scope was retroflexed and no abnormalities were noted, except for some hemorrhoidal tissue. The scope was placed back in the lumen and the excess air was aspirated. The patient tolerated the procedure well. Complications: none apparent Condition: Good, transported to PACU in stable condition Tova Allred MD General Surgery
[2020-03-16 16:24] VITALS: BP 110/66; PULSE 61
== END 2020-03-16 15:58 | disposition home or self-care (01) ==
LOC: JD.SDS 10:35
PROVIDERS: ATTEND Surgery
DX: K63.89 Other specified diseases of intestine (principal); N17.9 Acute kidney failure, unspecified; F41.9 Anxiety disorder, unspecified; I25.2 Old myocardial infarction; J44.9 Chronic obstructive pulmonary disease, unspecified; F17.210 Nicotine dependence, cigarettes, uncomplicated; I12.9 Hypertensive chronic kidney disease with stage 1 through stage 4 chronic kidney disease, or unspecified chronic kidney disease; N18.30 Chronic kidney disease, stage 3 unspecified; E11.22 Type 2 diabetes mellitus with diabetic chronic kidney disease; F32.9 Major depressive disorder, single episode, unspecified; Z98.890 Other specified postprocedural states; Z88.0 Allergy status to penicillin; Z88.8 Allergy status to other drugs, medicaments and biological substances; Z88.2 Allergy status to sulfonamides; Z88.1 Allergy status to other antibiotic agents; Z86.73 Personal history of transient ischemic attack (TIA), and cerebral infarction without residual deficits
CPT/HCPCS: 45380; J1642; J2704; J7030; J7120; 00811

== ENCOUNTER 2020-06-20 05:53 | Inpatient (IN) | payer MEDICARE, BC ==
[2020-06-20] MEDS ORDERED: Lactated Ringers 500 ML IV ONE ×2 (06:40→07:50)
[2020-06-20] MEDS ORDERED: Albuterol/Ipratropium 3.0-0.5 MG/3 ML Neb Soln NEB ONE (06:40)
--- NOTE | 2020-06-20 06:54 | EDM.PDOC ---
<Artur Schmitz - Last Filed: 06/20/20 06:49> ED HPI GENERAL MEDICAL PROBLEM - General Chief Complaint: Respiratory Problem Stated Complaint: [facility] Time Seen by Provider: 06/20/20 06:20 - History of Present Illness INITIAL COMMENTS - FREE TEXT/NARRATIVE: 79-year-old male brought in by EMS with shortness of breath. This unfortunate 79-year-old male has a history of stage IV lung cancer he s topped chemotherapy almost a year ago because he thought it was more harmful than the cancer itself. The patient understands fully that he will succumb to this cancer. Patient had worsening shortness of breath last night and really significant cough last night this seems to have resolved. Patient has no appetite. And he has been losing quite a bit of weight. He has noticed that his heart rate is quite rapid. He has no chest pain or shortness of breath however. Patient is not aware of any fevers or chills. He has no nausea or vomiting. Cough is generally productive, the sputum however is not changed characteristic he does not recall coughing up any blood. - Related Data Allergies Allergy/AdvReac Type Severity Reaction Status Date / Time azithromycin Allergy Severe Anaphylactic Verified 06/20/20 05:59 Shock gatifloxacin [From Tequin] Allergy Severe Anaphylactic Verified 06/20/20 05:59 Shock lansoprazole [From Prevacid] Allergy Severe Anaphylactic Verified 06/20/20 05:59 Shock Penicillins Allergy Severe Anaphylactic Verified 06/20/20 05:59 Shock omeprazole [From Prilosec] Allergy Mild Cannot Verified 06/20/20 05:59 Remember Sulfa (Sulfonamide Allergy Mild Rash Verified 06/20/20 05:59 Antibiotics) Home Meds: Home Meds Lutein/Minerals/Vit A,C & E [I-Jil] 1 tab PO DAILY 02/25/19 [History] Albuterol Sulfate [Proair Hfa] 2 puff INH Q4HR PRN 12/16/19 [History] Aspirin 325 mg PO BID PRN 12/16/19 [History] Brimonidine [Alphagan P 0.15% Ophth Soln] 1 drop EYEBOTH BID 12/16/19 [History] Furosemide [Lasix] 20 mg PO DAILY 12/16/19 [History] Ondansetron [Zofran] 4 mg PO TID PRN 12/16/19 [History] Sodium Chloride 1 gm PO BID #40 tablet 01/14/20 [Rx] Calcium Carbonate [Tums] 500 mg PO BEDTIME 03/15/20 [History] Metoprolol Succinate [Toprol XL 50mg] 50 mg PO DAILY 03/15/20 [History] Albuterol [Proventil] 1 inh NEB Q4HR PRN 05/31/20 [History] Allopurinol [Zyloprim] 50 mg PO DAILY 05/31/20 [History] LORazepam [Ativan] 0.5 mg PO Q6HR PRN 05/31/20 [History] Polyethylene Glycol [Polyox Wsr-301] 1 dose PO DAILY PRN 05/31/20 [History] Psyllium [Metamucil] 1 dose PO DAILY PRN 05/31/20 [History] Sennosides/Docusate Sodium [Senna-Docusate Sodium Tablet] 1 - 2 tab PO DAILY 05/31/20 [History] methylPREDNISolone [Medrol Dose Pack] 4 mg PO ASDIRECTED #1 dospk 06/03/20 [Rx] Past Medical History HEENT History: Reports: Cataract, Glaucoma, Macular Degeneration Other HEENT History: wears eyeglasses, has upper and lower dentures Cardiovascular History: Reports: Hypertension Respiratory History: Reports: COPD, SOB Other Respiratory History: stress asthma Gastrointestinal History: Reports: Bowel Obstruction, GERD Other Gastrointestinal History: esophagitis, liver mass, dysphagia, ileus, peg tube placement, small bowel obstruction Genitourinary History: Reports: Chronic Renal Insuffiency, Other (See Below) Other Genitourinary History: Rt nephrectomy, BASSAM, CKD III, RENAL INSUFFICIENCY [employer] PRINCIPAL History: Reports: None Musculoskeletal History: Reports: Arthritis, Gout Other Musculoskeletal History: dupuytren's contracture Neurological History: Reports: TIA Other Neuro History: TIAs Psychiatric History: Reports: Depression Endocrine/Metabolic History: Reports: None Hematologic History: Reports: Iron Deficiency Immunologic History: Reports: None Oncologic (Cancer) History: Reports: Colon, Liver, Lung Other Oncologic History: off of chemo for the past 9 months, with james cath L chest, getting radiation currently Dermatologic History: Reports: Psoriasis - Infectious Disease History Infectious Disease History: Reports: Measles, Mumps - Past Surgical History HEENT Surgical History: Reports: Cataract Surgery, Naso-Sinus Surgery Other HEENT Surgeries/Procedures: Bilateral cataract, sinus sx to right nare Cardiovascular Surgical History: Reports: Vascular Surgery Respiratory Surgical History: Reports: Tracheostomy Other Respiratory Surgeries/Procedures: right lung resection in 1999, bronchoscopy broch stents GI Surgical History: Reports: Appendectomy, Cholecystectomy, Colon, Colonoscopy, Colostomy, EGD, Other (See Below) Other GI Surgeries/Procedures: bile duct stent placed 12/12/2019, RIGHT COLECTOMY Male Surgical History: Reports: Nephrectomy Other Male Surgeries/Procedures: right kidney removed Musculoskeletal Surgical History: Reports: Other (See Below) Other Musculoskeletal Surgeries/Procedures:: left ankle surgery 1978 Dermatological Surgical History: Reports: Skin Biopsy Social & Family History - Family History Family Medical History: No Pertinent Family History Cardiac: Reports: CAD, [place] GI: Reports: Other (See Below) : Reports: Renal Disease/Insufficiency Endocrine/Metabolic: Reports: Diabetes, type II Other Oncologic Family History: aunt had brain cancer - Tobacco Use Tobacco Use Status *Q: Never Tobacco User - Caffeine Use Caffeine Use: Reports: Soda Other Caffeine Use: 2 cans/day - Recreational Drug Use Recreational Drug Use: No - Living Situation & Occupation Living situation: Reports: , with Spouse 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) ED ROS GENERAL - Review of Systems Review Of Systems: See Below Constitutional: Reports: No Symptoms HEENT: Reports: No Symptoms Respiratory: Reports: Shortness of Breath, Cough, Sputum Endocrine: Reports: No Symptoms GI/Abdominal: Reports: Anorexia. Denies: Abdominal Pain : Reports: Other (His urine frequency has decreased) Musculoskeletal: Reports: No Symptoms Skin: Reports: No Symptoms Neurological: Reports: No Symptoms Psychiatric: Reports: Anxiety Immunologic: Reports: No Symptoms ED EXAM, GENERAL - Physical Exam Exam: See Below Exam Limited By: No Limitations General Appearance: Alert, No Apparent Distress Eye Exam: Bilateral Eye: Normal Inspection Ears: Normal External Exam, Normal Canal, Hearing Grossly Normal, Normal TMs Nose: Normal Inspection, Normal Mucosa, No Blood Throat/Mouth: Normal Inspection, Normal Lips, Normal Gums, Normal Oropharynx, Normal Voice, No Airway Compromise, Other (Dry mucosa) Head: Atraumatic, Normocephalic Neck: Normal Inspection, Supple, Non-Tender, Full Range of Motion. No: Lymphadenopathy (L), Lymphadenopathy (R) Respiratory/Chest: Lungs Clear, Decreased Breath Sounds. No: Crackles, Rales Cardiovascular: No Edema, No Murmur, Tachycardia GI/Abdominal: Normal Bowel Sounds, Soft, Non-Tender Back Exam: Normal Inspection. No: CVA Tenderness (L), CVA Tenderness (R) Extremities: Normal Inspection, No Pedal Edema Neurological: Alert, Oriented, Normal Cognition Psychiatric: Normal Affect, Normal Mood Skin Exam: Warm, Dry, Intact Lymphatic: No Adenopathy Course - Re-Assessments/Exams Free Text/Narrative Re-Assessment/Exam: 06/20/20 07:11 Labs ordered, change of shift. Further care and disposition per Dr. Freedman. Departure - Departure Disposition: Refer to Observation Clinical Impression: COPD exacerbation, History of right nephrectomy Metastatic cancer to lung Qualifiers: Laterality: unspecified laterality Qualified Code(s): C78.00 - Secondary malignant neoplasm of unspecified lung - Discharge Information Forms: ED Department Discharge Sepsis Event Note (ED) - Evaluation Sepsis Screening Result: No Definite Risk <Lorenzo Freedman - Last Filed: 06/20/20 09:36> Course - Vital Signs Last Recorded V/S: Last Vital Signs Temp 97.4 F 06/20/20 05:54 Pulse 125 H 06/20/20 05:54 Resp 31 H 06/20/20 05:54 BP 100/76 06/20/20 05:54 Pulse Ox 94 L 06/20/20 06:41 - Orders/Labs/Meds Orders: Active Orders 24 hr Category Date Time Status EKG 12 Lead [EKG Documentation Completion] [RC] STAT Care 06/20/20 06:00 Active RT Aerosol Therapy [RC] ASDIRECTED Care 06/20/20 06:41 Active Chest 1V Frontal [CR] Stat Exams 06/20/20 06:41 Taken CULTURE BLOOD [BC] Stat Lab 06/20/20 07:18 Received CULTURE BLOOD [BC] Stat Lab 06/20/20 07:35 Received cefTRIAXone [Rocephin] 2 gm Med 06/20/20 09:17 Active Sodium Chloride 0.9% [Normal Saline] 100 ml IV ONETIME Blood Culture x2 Reflex Set [OM.PC] Stat Oth 06/20/20 06:41 Ordered Resuscitation Status Stat Resus Stat 06/20/20 09:18 Ordered Medication Orders Ceftriaxone Sodium 2 gm/ (Sodium Chloride) 100 mls @ 200 mls/hr IV ONETIME ONE Stop: 06/20/20 09:46 Labs: Laboratory Tests 06/20/20 06/20/20 06/20/20 Range/Units 07:18 07:18 07:18 WBC 10.19 H (4.23-9.07) K/mm3 RBC 4.33 L (4.63-6.08) M/mm3 Hgb 11.0 L D (13.7-17.5) gm/dl Hct 35.8 L (40.1-51.0) % MCV 82.7 (79.0-92.2) fl MCH 25.4 L (25.7-32.2) pg MCHC 30.7 L (32.2-35.5) g/dl RDW Std Deviation 46.1 H (35.1-43.9) fL Plt Count 301 D (163-337) K/mm3 MPV 9.3 L (9.4-12.3) fl Neut % (Auto) 82.3 H (34.0-67.9) % Lymph % (Auto) 7.6 L (21.8-53.1) % [place] % (Auto) 8.6 (5.3-12.2) % Eos % (Auto) 0.8 (0.8-7.0) Baso % (Auto) 0.2 (0.1-1.2) % Neut # (Auto) 8.39 H (1.78-5.38) K/mm3 Lymph # (Auto) 0.77 L (1.32-3.57) K/mm3 [place] # (Auto) 0.88 H (0.30-0.82) K/mm3 Eos # (Auto) 0.08 (0.04-0.54) K/mm3 Baso # (Auto) 0.02 (0.01-0.08) K/mm3 PT 11.7 (9.7-12.0) SECONDS INR 1.10 Sodium 135 L (136-145) mEq/L Potassium 5.0 (3.5-5.1) mEq/L Chloride 100 (98-107) mEq/L Carbon Dioxide 26 (21-32) mEq/L Anion Gap 14.0 (5-15) BUN 32 H (7-18) mg/dL Creatinine 1.4 H (0.7-1.3) mg/dL Est Cr Clr Drug Dosing TNP Estimated GFR (MDRD) 49 (>60) mL/min BUN/Creatinine Ratio 22.9 H (14-18) Glucose 144 H (83-115) mg/dL Lactic Acid (0.4-2.0) mmol/L Calcium 9.3 (8.5-10.1) mg/dL Total Bilirubin 0.4 (0.2-1.0) mg/dL AST 36 (15-37) U/L ALT 26 (16-63) U/L Alkaline Phosphatase 127 H (46-116) U/L Troponin I < 0.017 (0.00-0.056) ng/mL Total Protein 6.1 L (6.4-8.2) g/dl Albumin 2.0 L (3.4-5.0) g/dl Globulin 4.1 gm/dL Albumin/Globulin Ratio 0.5 L (1-2) Urine Color (Yellow) Urine Appearance (Clear) Urine pH (5.0-8.0) Ur Specific [place] (1.005-1.030) Urine Protein (Negative) Urine Glucose (UA) (Negative) Urine Ketones (Negative) Urine Occult Blood (Negative) Urine Nitrite (Negative) Urine Bilirubin (Negative) Urine Urobilinogen (0.2-1.0) Ur Leukocyte Esterase (Negative) Urine RBC (0-5) /hpf Urine WBC (0-5) /hpf Ur Squamous Epith Cells (0-5) /hpf Amorphous Sediment (NOT SEEN) /hpf Urine Bacteria (FEW) /hpf Urine Mucus (FEW) /hpf SARS-CoV-2 RNA (RAJ) (NEGATIVE) 06/20/20 06/20/20 06/20/20 Range/Units 07:18 07:55 08:06 WBC (4.23-9.07) K/mm3 RBC (4.63-6.08) M/mm3 Hgb (13.7-17.5) gm/dl Hct (40.1-51.0) % MCV (79.0-92.2) fl MCH (25.7-32.2) pg MCHC (32.2-35.5) g/dl RDW Std Deviation (35.1-43.9) fL Plt Count (163-337) K/mm3 MPV (9.4-12.3) fl Neut % (Auto) (34.0-67.9) % Lymph % (Auto) (21.8-53.1) % [place] % (Auto) (5.3-12.2) % Eos % (Auto) (0.8-7.0) Baso % (Auto) (0.1-1.2) % Neut # (Auto) (1.78-5.38) K/mm3 Lymph # (Auto) (1.32-3.57) K/mm3 [place] # (Auto) (0.30-0.82) K/mm3 Eos # (Auto) (0.04-0.54) K/mm3 Baso # (Auto) (0.01-0.08) K/mm3 PT (9.7-12.0) SECONDS INR Sodium (136-145) mEq/L Potassium (3.5-5.1) mEq/L Chloride (98-107) mEq/L Carbon Dioxide (21-32) mEq/L Anion Gap (5-15) BUN (7-18) mg/dL Creatinine (0.7-1.3) mg/dL Est Cr Clr Drug Dosing Estimated GFR (MDRD) (>60) mL/min BUN/Creatinine Ratio (14-18) Glucose (83-115) mg/dL Lactic Acid 1.5 (0.4-2.0) mmol/L Calcium (8.5-10.1) mg/dL Total Bilirubin (0.2-1.0) mg/dL AST (15-37) U/L ALT (16-63) U/L Alkaline Phosphatase (46-116) U/L Troponin I (0.00-0.056) ng/mL Total Protein (6.4-8.2) g/dl Albumin (3.4-5.0) g/dl Globulin gm/dL Albumin/Globulin Ratio (1-2) Urine Color Yellow (Yellow) Urine Appearance Clear (Clear) Urine pH 6.0 (5.0-8.0) Ur Specific [place] 1.025 (1.005-1.030) Urine Protein 1+ H (Negative) Urine Glucose (UA) Negative (Negative) Urine Ketones Negative (Negative) Urine Occult Blood Negative (Negative) Urine Nitrite Negative (Negative) Urine Bilirubin Negative (Negative) Urine Urobilinogen 0.2 (0.2-1.0) Ur Leukocyte Esterase Negative (Negative) Urine RBC 0-5 (0-5) /hpf Urine WBC 0-5 (0-5) /hpf Ur Squamous Epith Cells 0-5 (0-5) /hpf Amorphous Sediment Moderate H (NOT SEEN) /hpf Urine Bacteria Few (FEW) /hpf Urine Mucus Not seen (FEW) /hpf SARS-CoV-2 RNA (RAJ) Negative (NEGATIVE) Meds: Medications Generic Name Dose Route Start Last Admin Trade Name Freq PRN Reason Stop Dose Admin Ceftriaxone Sodium 2 gm/ 100 mls @ 200 mls/hr 06/20/20 09:17 Sodium Chloride IV 06/20/20 09:46 ONETIME ONE Discontinued Medications Generic Name Dose Route Start Last Admin Trade Name Freq PRN Reason Stop Dose Admin Albuterol/Ipratropium 3 ml 06/20/20 06:40 06/20/20 06:52 Duoneb 3.0-0.5 Mg/3 Ml NEB 06/20/20 06:41 3 ml ONETIME ONE Administration Lactated Ringer's 500 mls @ 999 mls/hr 06/20/20 06:40 06/20/20 07:38 Ringers, Lactated IV 06/20/20 07:10 999 mls/hr .BOLUS ONE Administration Lactated Ringer's 500 mls @ 1,000 mls/hr 06/20/20 07:50 06/20/20 08:14 Ringers, Lactated IV 06/20/20 08:19 Not Given .BOLUS ONE Methylprednisolone Sodium Succinate 125 mg 06/20/20 09:17 Solu-Medrol IVPUSH 06/20/20 09:18 ONETIME ONE - Re-Assessments/Exams Free Text/Narrative Re-Assessment/Exam: 06/20/20 09:[address] Schmitz. His EKG shows a sinus tachycardia with no acute changes. His CXR shows multiple areas of cancer but no new pneumonia. His WBC was slightly elevated at 10.19. His Na was low at 135. His creatinine is elevated at 1.4. His glucose was elevated at 144. His lactic acid was normal at 1.5. His troponin is negative. His UA shows no UTI. His COVID 19 is negative. I feel he is having a COPD exacerbation. I have ordered solu-medrol 125mg IV and rocephin 2 grams IV. I feel he needs to be admitted. I called Dr Noble and he agreed to the admission. Departure - Departure Time of Disposition: 09:35 Condition: Fair Sepsis Event Note (ED) - Focused Exam Vital Signs: Vital Signs Temp Pulse Resp BP Pulse Ox Pulse Ox 06/20/20 06:41 94 L 06/20/20 05:54 97.4 F 125 H 31 H 100/76 97 - My Orders Last 24 Hours: My Active Orders 06/20/20 09:17 cefTRIAXone [Rocephin] 2 gm Sodium Chloride 0.9% [Normal Saline] 100 ml IV ONETIME 06/20/20 09:18 Resuscitation Status Stat - Assessment/Plan Last 24 Hours: My Active Orders 06/20/20 09:17 cefTRIAXone [Rocephin] 2 gm Sodium Chloride 0.9% [Normal Saline] 100 ml IV ONETIME 06/20/20 09:18 Resuscitation Status Stat
[2020-06-20] MEDS ORDERED: methylPREDNISolone Sodium Succinate 125 MG/2 ML SDV IVPUSH ONE (09:17)
[2020-06-20] MEDS ORDERED: cefTRIAXone 2 GM in Sodium Chloride 0.9% 100 ML IV ONE (09:17)
--- NOTE | 2020-06-20 09:37 | PCM.HP.2 ---
H&P History of Present Illness - General Date of Service: 06/20/20 Source of Information: Patient, Old Records, Provider, RN, RN Notes Reviewed History Limitations: Reports: No Limitations - History of Present Illness Initial Comments - Free Text/Narative: This is an 79 year old male who is well known to this service, who presents to ED on 06/20/2020 with shortness of breath via [facility]. Patient has a longstanding history of chronic COPD exacerbations along with lung cancer metastasized to the liver and colon. He has been off chemo for the last several months but is reportedly still receiving radiation. He is aware that he will ultimately succumbed to cancer. Patient reports worsening shortness of breath last night and significant cough but states this has resolved. He has no appetite and has been losing weight. He notes tachycardia but denies any chest pain, shortness of breath, fever, chills, nausea, vomiting. He reports a chronic baseline cough with sputum and notes that this is not changed much. Chronically on 4 L of oxygen via nasal cannula. In the ED temp was 97.4. Pulse 125. Respirations 31. Blood pressure 100/76. Pulse ox 94%. Labs were obtained: BC is elevated at 10.19. Hemoglobin 11.0. Platelets are 301,000. Neutrophils are elevated at 82.3%. INR is 1.10. Sodium is low at 135 and the patient is noted to be chronically hyponatremia. Potassium 5.0. Chloride 100. Carbon dioxide 26. Anion gap 14. BUN is 32. Creatinine 1.4. GFR is 49. Glucose 144. Calcium 9.3. Bilirubin 0.4. AST is 36, ALT 26, alkaline phosphatase 127. Troponin less than 0.017. Protein is 6. 1. Albumin 2.0. Lactic acid is 1.5. UA is obtained and is negative however 1+ protein and moderate amorphous sediment are noted. Heart score of 2 RNA is negative. He is given a DuoNeb and 2 500 mL saline boluses. He is also started on 2 g of IV Rocephin given his multiple antibiotic allergies and 125 mg IV push Solu-Medrol. Twelve-lead EKG is obtained showing a sinus tachycardia with no acute changes. Chest x-ray shows multiple areas of prior neoplasm however no infiltrates are noted. He carries a history of glaucoma, macular degeneration, hypertension, COPD, asthma, bowel obstruction, GERD, PEG tube placement, chronic renal insufficiency, nephrectomy, BASSAM, CKD stage III, arthritis, gout, TIA, depression, iron deficiency anemia, colon, liver, and lung cancer, psoriasis. He is a former smoker. His PCP is Dr. Caldera. He is a DNR/DNI. He is subsequently admitted to the medical floor for management of his COPD exacerbation and shortness of breath. Last BM was 3 days ago per patient. - Related Data Allergies/Adverse Reactions: Allergies Allergy/AdvReac Type Severity Reaction Status Date / Time azithromycin Allergy Severe Anaphylactic Verified 06/20/20 05:59 Shock gatifloxacin [From Tequin] Allergy Severe Anaphylactic Verified 06/20/20 05:59 Shock lansoprazole [From Prevacid] Allergy Severe Anaphylactic Verified 06/20/20 05:59 Shock Penicillins Allergy Severe Anaphylactic Verified 06/20/20 05:59 Shock omeprazole [From Prilosec] Allergy Mild Cannot Verified 06/20/20 05:59 Remember Sulfa (Sulfonamide Allergy Mild Rash Verified 06/20/20 05:59 Antibiotics) Home Medications: Home Meds Lutein/Minerals/Vit A,C & E [I-Jil] 1 tab PO DAILY 02/25/19 [History] Albuterol Sulfate [Proair Hfa] 2 puff INH Q4HR PRN 12/16/19 [History] Aspirin 325 mg PO BID PRN 12/16/19 [History] Brimonidine [Alphagan P 0.15% Ophth Soln] 1 drop EYEBOTH BID 12/16/19 [History] Furosemide [Lasix] 20 mg PO DAILY 12/16/19 [History] Ondansetron [Zofran] 4 mg PO TID PRN 12/16/19 [History] Sodium Chloride 1 gm PO BID #40 tablet 01/14/20 [Rx] Calcium Carbonate [Tums] 500 mg PO BEDTIME 03/15/20 [History] Metoprolol Succinate [Toprol XL 50mg] 50 mg PO DAILY 03/15/20 [History] Albuterol [Proventil] 1 inh NEB Q4HR PRN 05/31/20 [History] Allopurinol [Zyloprim] 50 mg PO DAILY 05/31/20 [History] LORazepam [Ativan] 0.5 mg PO Q6HR PRN 05/31/20 [History] Polyethylene Glycol [Polyox Wsr-301] 1 dose PO DAILY 05/31/20 [History] Psyllium [Metamucil] 1 dose PO DAILY PRN 05/31/20 [History] Sennosides/Docusate Sodium [Senna-Docusate Sodium Tablet] 1 - 2 tab PO DAILY 05/31/20 [History] Past Medical History HEENT History: Reports: Cataract, Glaucoma, Macular Degeneration Other HEENT History: wears eyeglasses, has upper and lower dentures Cardiovascular History: Reports: Hypertension Respiratory History: Reports: COPD, SOB Other Respiratory History: stress asthma Gastrointestinal History: Reports: Bowel Obstruction, GERD Other Gastrointestinal History: esophagitis, liver mass, dysphagia, ileus, peg tube placement, small bowel obstruction Genitourinary History: Reports: Chronic Renal Insuffiency, Other (See Below) Other Genitourinary History: Rt nephrectomy, BASSAM, CKD III, RENAL INSUFFICIENCY 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 MECHANIC 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: Reports: None Musculoskeletal History: Reports: Arthritis, Gout Other Musculoskeletal History: dupuytren's contracture Neurological History: Reports: TIA Other Neuro History: TIAs Psychiatric History: Reports: Depression Endocrine/Metabolic History: Reports: None Hematologic History: Reports: Iron Deficiency Immunologic History: Reports: None Oncologic (Cancer) History: Reports: Colon, Liver, Lung Other Oncologic History: off of chemo for the past 9 months, with james cath L chest, getting radiation currently Dermatologic History: Reports: Psoriasis - Infectious Disease History Infectious Disease History: Reports: Measles, Mumps - Past Surgical History HEENT Surgical History: Reports: Cataract Surgery, Naso-Sinus Surgery Other HEENT Surgeries/Procedures: Bilateral cataract, sinus sx to right nare Cardiovascular Surgical History: Reports: Vascular Surgery Respiratory Surgical History: Reports: Tracheostomy Other Respiratory Surgeries/Procedures: right lung resection in 1999, bronchoscopy broch stents GI Surgical History: Reports: Appendectomy, Cholecystectomy, Colon, Colonoscopy, Colostomy, EGD, Other (See Below) Other GI Surgeries/Procedures: bile duct stent placed 12/12/2019, RIGHT COLECTOMY Male Surgical History: Reports: Nephrectomy Other Male Surgeries/Procedures: right kidney removed Musculoskeletal Surgical History: Reports: Other (See Below) Other Musculoskeletal Surgeries/Procedures:: left ankle surgery 1978 Dermatological Surgical History: Reports: Skin Biopsy Social & Family History - Family History Family Medical History: No Pertinent Family History Cardiac: Reports: CAD, OK GI: Reports: Other (See Below) : Reports: Renal Disease/Insufficiency Endocrine/Metabolic: Reports: Diabetes, type II Other Oncologic Family History: aunt had brain cancer - Tobacco Use Tobacco Use Status *Q: Never Tobacco User - Caffeine Use Caffeine Use: Reports: Soda Other Caffeine Use: 2 cans/day - Recreational Drug Use Recreational Drug Use: No - Living Situation & Occupation Living situation: Reports: , with Spouse 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) H&P Review of Systems - Review of Systems: Review Of Systems: See Below General: Reports: Decreased Appetite, Weight Loss. Denies: Fever, Chills, Malaise, Weakness, Fatigue HEENT: Reports: No Symptoms. Denies: Headaches, Sore Throat Pulmonary: Reports: Shortness of Breath, Cough (chronic - minimal ), Sputum (chronic - minimal). Denies: Wheezing, Hemoptysis Cardiovascular: Reports: No Symptoms, Dyspnea on Exertion. Denies: Chest Pain, Palpitations, Edema, Lightheadedness Gastrointestinal: Reports: No Symptoms. Denies: Abdominal Pain, Constipation, Diarrhea, Nausea, Vomiting Genitourinary: Reports: No Symptoms. Denies: Pain Musculoskeletal: Reports: No Symptoms Skin: Reports: No Symptoms. Denies: Cyanosis Psychiatric: Reports: No Symptoms. Denies: Confusion Neurological: Reports: No Symptoms. Denies: Confusion, Pre-Existing Deficit, Difficulty Walking, Gait Disturbance Hematologic/Lymphatic: Reports: No Symptoms Immunologic: Reports: No Symptoms Exam - Exam Exam: See Below - Vital Signs Vital Signs: Last Vital Signs Temp 97.4 F 06/20/20 05:54 Pulse 125 H 06/20/20 05:54 Resp 31 H 06/20/20 05:54 BP 100/76 06/20/20 05:54 Pulse Ox 94 L 06/20/20 06:41 Weight: 142 lb - Exam Quality Assessment: Supplemental Oxygen (4L), DVT Prophylaxis General: Alert, Oriented, Cooperative. No: Mild Distress HEENT: Conjunctiva Clear, EACs Clear, Mucosa Moist & [place], Posterior Pharynx Clear Neck: Supple, Trachea Midline Lungs: Normal Respiratory Effort, Decreased Breath Sounds. No: Crackles, Rales, Rhonchi, Wheezing Cardiovascular: Regular Rate, Regular Rhythm, Other (Port in left chest) GI/Abdominal Exam: Normal Bowel Sounds, Soft, Non-Tender, No Distention (Male) Exam: Deferred Rectal (Males) Exam: Deferred Back Exam: Normal Inspection, Full Range of Motion Extremities: Normal Inspection, Normal Range of Motion, Non-Tender, No Pedal Edema Skin: Warm, Dry, Intact Neurological: Cranial Nerves Intact (Grossly ) Neuro Extensive - Mental Status: Alert, Oriented x3, Normal Mood/Affect - Patient Data Lab Results Last 24 hrs: Laboratory Results - last 24 hr 06/20/20 06/20/20 06/20/20 Range/Units 07:18 07:18 07:18 WBC 10.19 H (4.23-9.07) K/mm3 RBC 4.33 L (4.63-6.08) M/mm3 Hgb 11.0 L D (13.7-17.5) gm/dl Hct 35.8 L (40.1-51.0) % MCV 82.7 (79.0-92.2) fl MCH 25.4 L (25.7-32.2) pg MCHC 30.7 L (32.2-35.5) g/dl RDW Std Deviation 46.1 H (35.1-43.9) fL Plt Count 301 D (163-337) K/mm3 MPV 9.3 L (9.4-12.3) fl Neut % (Auto) 82.3 H (34.0-67.9) % Lymph % (Auto) 7.6 L (21.8-53.1) % Tripp % (Auto) 8.6 (5.3-12.2) % Eos % (Auto) 0.8 (0.8-7.0) Baso % (Auto) 0.2 (0.1-1.2) % Neut # (Auto) 8.39 H (1.78-5.38) K/mm3 Lymph # (Auto) 0.77 L (1.32-3.57) K/mm3 Tripp # (Auto) 0.88 H (0.30-0.82) K/mm3 Eos # (Auto) 0.08 (0.04-0.54) K/mm3 Baso # (Auto) 0.02 (0.01-0.08) K/mm3 PT 11.7 (9.7-12.0) SECONDS INR 1.10 Sodium 135 L (136-145) mEq/L Potassium 5.0 (3.5-5.1) mEq/L Chloride 100 (98-107) mEq/L Carbon Dioxide 26 (21-32) mEq/L Anion Gap 14.0 (5-15) BUN 32 H (7-18) mg/dL Creatinine 1.4 H (0.7-1.3) mg/dL Est Cr Clr Drug Dosing TNP Estimated GFR (MDRD) 49 (>60) mL/min BUN/Creatinine Ratio 22.9 H (14-18) Glucose 144 H (83-115) mg/dL Lactic Acid (0.4-2.0) mmol/L Calcium 9.3 (8.5-10.1) mg/dL Total Bilirubin 0.4 (0.2-1.0) mg/dL AST 36 (15-37) U/L ALT 26 (16-63) U/L Alkaline Phosphatase 127 H (46-116) U/L Troponin I < 0.017 (0.00-0.056) ng/mL Total Protein 6.1 L (6.4-8.2) g/dl Albumin 2.0 L (3.4-5.0) g/dl Globulin 4.1 gm/dL Albumin/Globulin Ratio 0.5 L (1-2) Urine Color (Yellow) Urine Appearance (Clear) Urine pH (5.0-8.0) Ur Specific [place] (1.005-1.030) Urine Protein (Negative) Urine Glucose (UA) (Negative) Urine Ketones (Negative) Urine Occult Blood (Negative) Urine Nitrite (Negative) Urine Bilirubin (Negative) Urine Urobilinogen (0.2-1.0) Ur Leukocyte Esterase (Negative) Urine RBC (0-5) /hpf Urine WBC (0-5) /hpf Ur Squamous Epith Cells (0-5) /hpf Amorphous Sediment (NOT SEEN) /hpf Urine Bacteria (FEW) /hpf Urine Mucus (FEW) /hpf SARS-CoV-2 RNA (RAJ) (NEGATIVE) 06/20/20 06/20/20 06/20/20 Range/Units 07:18 07:55 08:06 WBC (4.23-9.07) K/mm3 RBC (4.63-6.08) M/mm3 Hgb (13.7-17.5) gm/dl Hct (40.1-51.0) % MCV (79.0-92.2) fl MCH (25.7-32.2) pg MCHC (32.2-35.5) g/dl RDW Std Deviation (35.1-43.9) fL Plt Count (163-337) K/mm3 MPV (9.4-12.3) fl Neut % (Auto) (34.0-67.9) % Lymph % (Auto) (21.8-53.1) % Tripp % (Auto) (5.3-12.2) % Eos % (Auto) (0.8-7.0) Baso % (Auto) (0.1-1.2) % Neut # (Auto) (1.78-5.38) K/mm3 Lymph # (Auto) (1.32-3.57) K/mm3 Tripp # (Auto) (0.30-0.82) K/mm3 Eos # (Auto) (0.04-0.54) K/mm3 Baso # (Auto) (0.01-0.08) K/mm3 PT (9.7-12.0) SECONDS INR Sodium (136-145) mEq/L Potassium (3.5-5.1) mEq/L Chloride (98-107) mEq/L Carbon Dioxide (21-32) mEq/L Anion Gap (5-15) BUN (7-18) mg/dL Creatinine (0.7-1.3) mg/dL Est Cr Clr Drug Dosing Estimated GFR (MDRD) (>60) mL/min BUN/Creatinine Ratio (14-18) Glucose (83-115) mg/dL Lactic Acid 1.5 (0.4-2.0) mmol/L Calcium (8.5-10.1) mg/dL Total Bilirubin (0.2-1.0) mg/dL AST (15-37) U/L ALT (16-63) U/L Alkaline Phosphatase (46-116) U/L Troponin I (0.00-0.056) ng/mL Total Protein (6.4-8.2) g/dl Albumin (3.4-5.0) g/dl Globulin gm/dL Albumin/Globulin Ratio (1-2) Urine Color Yellow (Yellow) Urine Appearance Clear (Clear) Urine pH 6.0 (5.0-8.0) Ur Specific [place] 1.025 (1.005-1.030) Urine Protein 1+ H (Negative) Urine Glucose (UA) Negative (Negative) Urine Ketones Negative (Negative) Urine Occult Blood Negative (Negative) Urine Nitrite Negative (Negative) Urine Bilirubin Negative (Negative) Urine Urobilinogen 0.2 (0.2-1.0) Ur Leukocyte Esterase Negative (Negative) Urine RBC 0-5 (0-5) /hpf Urine WBC 0-5 (0-5) /hpf Ur Squamous Epith Cells 0-5 (0-5) /hpf Amorphous Sediment Moderate H (NOT SEEN) /hpf Urine Bacteria Few (FEW) /hpf Urine Mucus Not seen (FEW) /hpf SARS-CoV-2 RNA (RAJ) Negative (NEGATIVE) Result Diagrams: 06/20/20 07:18 06/20/20 07:18 Sepsis Event Note - Evaluation Sepsis Screening Result: No Definite Risk - Focused Exam Vital Signs: Vital Signs Temp Pulse Resp BP Pulse Ox Pulse Ox 06/20/20 06:41 94 L 06/20/20 05:54 97.4 F 125 H 31 H 100/76 97 - Problem List (1) COPD exacerbation SNOMED Code(s): 940775560 ICD Code: J44.1 - CHRONIC OBSTRUCTIVE PULMONARY DISEASE W (ACUTE) EXACERBATION Status: Acute Priority: High Current Visit: Yes (2) History of right nephrectomy SNOMED Code(s): 21827225571538 ICD Code: Z90.5 - ACQUIRED ABSENCE OF KIDNEY Status: Chronic Priority: Medium Current Visit: Yes (3) Metastatic cancer to lung SNOMED Code(s): 31615590 ICD Code: C78.00 - SECONDARY MALIGNANT NEOPLASM OF UNSPECIFIED LUNG Status: Chronic Priority: Medium Current Visit: Yes Qualifiers: Laterality: unspecified laterality Qualified Code(s): C78.00 - Secondary malignant neoplasm of unspecified lung (4) Dysphagia, unspecified SNOMED Code(s): 67363605, 775482572 ICD Code: R13.10 - DYSPHAGIA, UNSPECIFIED Status: Chronic Priority: Low Current Visit: No Qualifiers: Dysphagia type: unspecified Qualified Code(s): R13.10 - Dysphagia, unspecified (5) Weight loss SNOMED Code(s): 30362050, 737791426 ICD Code: R63.4 - ABNORMAL WEIGHT LOSS Status: Chronic Priority: Low Current Visit: No Problem Details: (6) Asthma SNOMED Code(s): 471747345 ICD Code: J45.909 - UNSPECIFIED ASTHMA, UNCOMPLICATED Status: Chronic Priority: Medium Current Visit: No Qualifiers: Asthma severity: unspecified severity Asthma persistence: unspecified Asthma complication type: unspecified Qualified Code(s): J45.909 - Unspecified asthma, uncomplicated (7) COPD (chronic obstructive pulmonary disease) SNOMED Code(s): 50386413 ICD Code: J44.9 - CHRONIC OBSTRUCTIVE PULMONARY DISEASE, UNSPECIFIED Status: Chronic Priority: Medium Current Visit: No Qualifiers: COPD type: unspecified COPD Qualified Code(s): J44.9 - Chronic obstructive pulmonary disease, unspecified (8) 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 SNOMED Code(s): 985051022, 156029926 ICD Code: C18.9 - MALIGNANT NEOPLASM OF COLON, UNSPECIFIED; C78.7 - SECONDARY MALIG NEOPLASM OF LIVER AND INTRAHEPATIC BILE DUCT Status: Chronic Priority: Medium Current Visit: No (9) Chronic dyspnea SNOMED Code(s): 581529857 ICD Code: R06.00 - DYSPNEA, UNSPECIFIED Status: Chronic Priority: Medium Current Visit: No (10) Dupuytren contracture SNOMED Code(s): 372635236 ICD Code: M72.0 - PALMAR FASCIAL FIBROMATOSIS [DUPUYTREN] Status: Chronic Priority: Low Current Visit: No (11) GERD (gastroesophageal reflux disease) SNOMED Code(s): 124299203 ICD Code: K21.9 - GASTRO-ESOPHAGEAL REFLUX DISEASE WITHOUT ESOPHAGITIS Status: Chronic Priority: Medium Current Visit: No Qualifiers: Esophagitis presence: with esophagitis (12) Glaucoma SNOMED Code(s): 02342559 ICD Code: H40.9 - UNSPECIFIED GLAUCOMA Status: Chronic Priority: Low Current Visit: No Qualifiers: Glaucoma type: unspecified Laterality: unspecified laterality Qualified Code(s): H40.9 - Unspecified glaucoma (13) Gouty arthritis SNOMED Code(s): 69220905 ICD Code: M10.9 - GOUT, UNSPECIFIED Status: Chronic Priority: Low Current Visit: No (14) History of TIA (transient ischemic attack) SNOMED Code(s): 937538245 ICD Code: Z86.73 - PRSNL HX OF TIA (TIA), AND CEREB INFRC W/O RESID DEFICITS Status: Chronic Priority: Low Current Visit: No (15) History of biliary stent insertion SNOMED Code(s): 987722950 ICD Code: Z98.890 - OTHER SPECIFIED POSTPROCEDURAL STATES Status: Chronic Priority: Low Current Visit: No (16) Hypertension SNOMED Code(s): 45736688 ICD Code: I10 - ESSENTIAL (PRIMARY) HYPERTENSION Status: Chronic Priority: Medium Current Visit: No Qualifiers: Hypertension type: essential hypertension Qualified Code(s): I10 - Essential (primary) hypertension (17) Hyponatremia SNOMED Code(s): 50359433 ICD Code: E87.1 - HYPO-OSMOLALITY AND HYPONATREMIA Status: Chronic Priority: Medium Current Visit: No (18) Macular degeneration SNOMED Code(s): 150646994 ICD Code: H35.30 - UNSPECIFIED MACULAR DEGENERATION Status: Chronic Priority: Low Current Visit: No Qualifiers: Macular degeneration type: unspecified type Eye laterality: unspecified Qualified Code(s): H35.30 - Unspecified macular degeneration (19) Metastases to the liver Status: Chronic Priority: Medium Current Visit: No (20) Neoplasm of colon, 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 SNOMED Code(s): 28980241, 221205178 ICD Code: D01.0 - CARCINOMA IN SITU OF COLON Status: Chronic Priority: Medium Current Visit: No (21) Port-A-Cath in place SNOMED Code(s): 315461089 ICD Code: Z95.828 - PRESENCE OF OTHER VASCULAR IMPLANTS AND GRAFTS Status: Chronic Priority: Medium Current Visit: No (22) Psoriasis SNOMED Code(s): 8941883 ICD Code: L40.9 - PSORIASIS, UNSPECIFIED Status: Chronic Priority: Low Current Visit: No (23) CKD (chronic kidney disease) stage 3, GFR 30-59 ml/min SNOMED Code(s): 693187779 ICD Code: N18.3 - CHRONIC KIDNEY DISEASE, STAGE 3 (MODERATE) * DO NOT USE * Status: Chronic Priority: Medium Current Visit: No Qualifiers: Chronic kidney disease stage 3 subtype: stage 3a (GFR 45-59) Qualified Code(s): N18.31 - Chronic kidney disease, stage 3a (24) Constipation SNOMED Code(s): 36741032 ICD Code: K59.00 - CONSTIPATION, UNSPECIFIED Status: Chronic Priority: Medium Current Visit: Yes Qualifiers: Constipation type: unspecified constipation type Qualified Code(s): K59.00 - Constipation, unspecified (25) Hypotension SNOMED Code(s): 51697724 ICD Code: I95.9 - HYPOTENSION, UNSPECIFIED Status: Acute Priority: High Current Visit: Yes Qualifiers: Hypotension type: unspecified hypotension type Qualified Code(s): I95.9 - Hypotension, unspecified (26) Hypoalbuminemia SNOMED Code(s): 603216345 ICD Code: E88.09 - OTH DISORDERS OF PLASMA-PROTEIN METABOLISM, NEC Status: Acute Priority: High Current Visit: Yes (27) Former smoker SNOMED Code(s): 5694369 ICD Code: Z87.891 - PERSONAL HISTORY OF NICOTINE DEPENDENCE Status: Chronic Priority: Medium Current Visit: No Problem List Initiated/Reviewed/Updated: Yes Orders Last 24hrs: Active Orders 24 hr Category Date Time Status EKG 12 Lead [EKG Documentation Completion] [RC] STAT Care 06/20/20 06:00 Active Insert Urinary Catheter [OM.PC] Stat Care 06/20/20 08:05 Ordered RT Aerosol Therapy [RC] ASDIRECTED Care 06/20/20 06:41 Active Urinary Catheter Assessment [RC] ASDIRECTED Care 06/20/20 09:36 Active Chest 1V Frontal [CR] Stat Exams 06/20/20 06:41 Taken CULTURE BLOOD [BC] Stat Lab 06/20/20 07:18 Received CULTURE BLOOD [BC] Stat Lab 06/20/20 07:35 Received cefTRIAXone [Rocephin] 2 gm Med 06/20/20 09:17 Active Sodium Chloride 0.9% [Normal Saline] 100 ml IV ONETIME Blood Culture x2 Reflex Set [OM.PC] Stat Oth 06/20/20 06:41 Ordered Resuscitation Status Stat Resus Stat 06/20/20 09:18 Ordered Medication Orders Ceftriaxone Sodium 2 gm/ (Sodium Chloride) 100 mls @ 200 mls/hr IV ONETIME ONE Stop: 06/20/20 09:46 Last Admin: 06/20/20 09:34 Dose: 200 mls/hr Documented by: MARCELL Assessment/Plan Comment:: Assessment - day of admission - 06/20/20 * 79 yo male who presents to our ED via [facility] with shortness of breath * Patient reports worsening SOB since last night and productive cough * History of metastatic lung, liver, and colon cancer, COPD, asthma, dyspagia, CKD, Rt. Nephrectomy, gerd, HTN, glaucoma, macular degeneration, gout, TIA, depressoin, Iron deficiency, Psoriasis, hyponatremia * Chronically on 4L o2 * Stopped chemotherapy about a year ago as he reports he was feeling worse than the cancer itself * Aware he will ultimately from his cancer * Reports chronic cough and sputum production but this has not gotten any worse * 12-lead EKG in ED shows sinus tachycardia with no signs of ischemia * CXR in ED shows multiple areas of lung cancer but no acute infiltrates * Labs in ED: * WBC 10.19 (likely stress and not infectious) * Hgb 11.0 * Neutrophils 8.39 * INR 1.10 * Sodium 135 (chronic) * Potassium 5.0 * Carbon dioxide 26 * Anion gap 14.0 * BUN 32, Creatinine 1.4, GFR 49 (appears slightly worse than baseline) * Glucose 144 * AST 36, ALT 36, Alk Phos 127 * Troponin <0.017 * Protein 6.1 * Albumin 2.0 * Lactic acid 1.5 * UA negative but 1+ protein and moderate amorphous sediment noted * Negative SARS-CoV-2 RNA * Blood cultures pending * Given two 500ml Fluid boluses, started on 2gm Rocephin and 125mg solumedrol; Given DuoNeb treatment * Sepsis screen: * Unknown bacterial infection - receiving empiric Rocephin, tachycardia and tachypnea. Hypotension after admission * Meets criteria, although it is felt this is 2/2 his chronic progressing lung cancer and not likely sepsis * Patient has had variable blood pressures and tachycardia on prior visits * Blood cultures obtained prior to admission in ED * Will continue to monitor vital signs and treat accordingly * Admitted observation status for management of COPD exacerbation, hypoxia Plan: COPD exacerbation Metastatic cancer to lung Asthma COPD (chronic obstructive pulmonary disease) Chronic dyspnea Port-A-Cath in place Hypotension Former smoker * Rocephin 2gm daily * Access port * Steroids as ordered * IS as directed * O2 as needed - baseline 4L * PRN duonebs * IV fluids as ordered * RT consultation * Blood cultures pending * PT/OT * Consider holding lasix tomorrow History of right nephrectomy CKD (chronic kidney disease) stage 3, GFR 30-59 ml/min * Avoid nephrotoxic meds if able * Monitor labs * IV fluids as ordered Dysphagia, unspecified Weight loss 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 Metastases to the liver Neoplasm of colon, 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 Caldera DVT Prophylaxis: Lovenox Social: Patient resides in a home with his . He was discharged during his last visit (05/31/20-06/03/20) on home health. Disposition: Patient admitted to [facility] observation status for management of COPD exacerbation with hypoxia. Prognosis: Overall poor prognosis given neoplasm metastasis, weight loss. - Mortality Measure Prognosis:: Poor
[2020-06-20] MEDS ORDERED: Albuterol/Ipratropium 3.0-0.5 MG/3 ML Neb Soln NEB PRN (09:41)
[2020-06-20] MEDS ORDERED: Acetaminophen 325 MG Tab PO PRN (09:41)
[2020-06-20] MEDS ORDERED: Ondansetron 4 MG/2 ML SDV IV PRN (09:41)
[2020-06-20] MEDS ORDERED: PSYLLIUM PO PRN (09:44)
[2020-06-20] MEDS ORDERED: ASPIRIN 325 MG PO PRN (09:44)
[2020-06-20] MEDS ORDERED: POLYETHYLENE GLYCOL PO PRN (09:44)
[2020-06-20] MEDS ORDERED: Non-Formulary Medication 1 Each (Lorazepam 0.5 MG) PO PRN (09:44)
[2020-06-20] MEDS ORDERED: methylPREDNISolone Sodium Succinate 40 MG/1 ML SDV IVPUSH SCH (10:00)
--- NOTE | 2020-06-20 10:17 | CR ---
Chest: Portable view of the chest was obtained. Comparison: Prior chest x-ray of 05/31/[address] chest of 05/31/20. Numerous nodular masses are seen within both sides of the chest. Small loculated pleural effusion is noted within the left lung base which is similar to previous exam. Degenerative change is seen within both shoulders. Infusion catheter is noted. Heart is difficult to evaluate on this study. Impression: 1. Multiple nodular metastatic disease within the chest. 2. Small loculated pleural effusion within the left lung base. 3. Other findings as noted above. Diagnostic code #9
[2020-06-20] MEDS ORDERED: LORazepam 0.5 MG Tab PO PRN (10:58)
[2020-06-20] MEDS ORDERED: Polyethylene Glycol 3350 Powder 17 GM Packet PO PRN (11:00)
[2020-06-20] MEDS ORDERED: Psyllium Husk Powder Sugar Free 5.85 GM Packet PO PRN (11:00)
[2020-06-20] MEDS ORDERED: Lactated Ringers 1,000 ML IV SCH (11:30)
[2020-06-20] MEDS ORDERED: Magnesium Oxide 400 MG Tab PO ONE (12:31)
[2020-06-20] MEDS ORDERED: BRIMONIDINE EYEBOTH SCH (21:00)
[2020-06-20] MEDS: Calcium Carbonate 500 MG Tab.Chew PO SCH (21:04)
[2020-06-20] MEDS: Sodium Chloride 1 GM Tab PO SCH (21:04)
[2020-06-20] MEDS: methylPREDNISolone Sodium Succinate 40 MG/1 ML SDV IVPUSH SCH (21:05)
[2020-06-20] MEDS: Brimonidine 0.2% Ophth Soln 5 ML Bottle EYEBOTH SCH (22:00)
[2020-06-21] MEDS: Brimonidine 0.2% Ophth Soln 5 ML Bottle EYEBOTH SCH ×3 (08:31→20:42)
[2020-06-21] MEDS: Sodium Chloride 1 GM Tab PO SCH ×2 (08:36→20:42)
[2020-06-21] MEDS: Multivitamins with Minerals/Folic Acid/Lutein/Zeaxanth Tab PO SCH (08:37)
[2020-06-21] MEDS: Enoxaparin 40 MG/0.4 ML Syringe SUBCUT SCH (08:38)
[2020-06-21] MEDS: methylPREDNISolone Sodium Succinate 40 MG/1 ML SDV IVPUSH SCH ×2 (08:39→20:42)
[2020-06-21] MEDS ORDERED: Furosemide 20 MG Tab **PTOM PO SCH (09:00)
[2020-06-21] MEDS ORDERED: Allopurinol 100 MG Tab PO SCH (09:00)
[2020-06-21] MEDS ORDERED: cefTRIAXone 2 GM in Sodium Chloride 0.9% 100 ML IV SCH (09:00)
[2020-06-21] MEDS ORDERED: Furosemide 20 MG Tab PO SCH (09:00)
[2020-06-21] MEDS ORDERED: Non-Formulary Medication 1 Each (Lutein/Minerals/Vit A,C & E 1 TAB) PO SCH (09:00)
[2020-06-21] MEDS ORDERED: Metoprolol Succinate 50 MG Tab.ER PO SCH ×2 (09:00)
[2020-06-21] MEDS: Metoprolol Succinate 50 MG Tab.ER **PTOM PO SCH (09:08)
[2020-06-21] MEDS: SERTRALINE 25 MG PO SCH (09:13)
[2020-06-21] MEDS: Allopurinol 100 MG Tab **PTOM PO SCH (09:14)
[2020-06-21] MEDS: LORAZEPAM 0.5 MG PO PRN ×2 (09:19→20:53)
[2020-06-21] MEDS ORDERED: Sodium Polystyrene Sulfonate 15 GM/60 ML Susp 60 ML Bot PO ONE (09:30)
--- NOTE | 2020-06-21 09:53 | PCM.PN ---
- General Info Date of Service: 06/21/20 Admission Dx/Problem (Free Text): COPD exacerbation Subjective Update: In to see Wellde. He is sitting up on the edge of the bed eating. He reports he feels better than when he came in but not as good as yesterday evening. He remains on baseline oxygen. We will keep patient today with plan for discharge tomorrow. Vital signs remained stable. Potassium is increased to 5.5. This is not uncommon for this patient and will give 1 dose of Kayexalate. Functional Status: Reports: Pain Controlled, Tolerating Diet, Ambulating, Urinating, Incentive Spirometry, Other (acapella ). Denies: New Symptoms - Review of Systems General: Reports: Weakness. Denies: Fever, Fatigue, Malaise, Chills HEENT: Reports: No Symptoms. Denies: Headaches, Sore Throat Pulmonary: Reports: Shortness of Breath, Cough (minimal baseline ), Sputum (minimal baseline ). Denies: Pleuritic Chest Pain, Wheezing Cardiovascular: Reports: Dyspnea on Exertion. Denies: Chest Pain, Edema Gastrointestinal: Reports: Decreased Appetite. Denies: Abdominal Pain, Constipation, Diarrhea, Nausea, Vomiting Genitourinary: Reports: No Symptoms. Denies: Pain Musculoskeletal: Reports: No Symptoms Skin: Reports: No Symptoms. Denies: Cyanosis Neurological: Reports: No Symptoms. Denies: Confusion, Pre-Existing Deficit, Difficulty Walking, Weakness, Gait Disturbance Psychiatric: Reports: No Symptoms - Patient Data Vitals - Most Recent: Last Vital Signs Temp 97.3 F 06/21/20 03:55 Pulse 100 06/21/20 09:08 Resp 22 H 06/21/20 03:55 BP 103/65 06/21/20 09:08 Pulse Ox 99 06/21/20 03:55 Weight - Most Recent: 142 lb 3.2 oz I&O - Last 24 Hours: Intake & Output 06/20/20 06/21/20 06/21/20 22:59 06:59 14:59 Intake Total 1120 150 Output Total 50 200 Balance 1070 -50 Lab Results Last 24 Hours: Laboratory Results - last 24 hr 06/20/20 06/21/20 06/21/20 Range/Units 07:18 05:19 05:19 WBC 8.58 (4.23-9.07) K/mm3 RBC 3.71 L (4.63-6.08) M/mm3 Hgb 9.4 L D (13.7-17.5) gm/dl Hct 31.2 L (40.1-51.0) % MCV 84.1 (79.0-92.2) fl MCH 25.3 L (25.7-32.2) pg MCHC 30.1 L (32.2-35.5) g/dl RDW Std Deviation 46.1 H (35.1-43.9) fL Plt Count 261 (163-337) K/mm3 MPV 9.7 (9.4-12.3) fl Neut % (Auto) 91.6 H (34.0-67.9) % Lymph % (Auto) 4.4 L (21.8-53.1) % [place] % (Auto) 3.8 L (5.3-12.2) % Eos % (Auto) 0 L (0.8-7.0) Baso % (Auto) 0.0 L (0.1-1.2) % Neut # (Auto) 7.85 H (1.78-5.38) K/mm3 Lymph # (Auto) 0.38 L (1.32-3.57) K/mm3 [place] # (Auto) 0.33 (0.30-0.82) K/mm3 Eos # (Auto) 0.00 L (0.04-0.54) K/mm3 Baso # (Auto) 0.00 L (0.01-0.08) K/mm3 Manual Slide Review Abnormal smear Sodium 136 (136-145) mEq/L Potassium 5.5 H (3.5-5.1) mEq/L Chloride 100 (98-107) mEq/L Carbon Dioxide 27 (21-32) mEq/L Anion Gap 14.5 (5-15) BUN 42 H (7-18) mg/dL Creatinine 1.6 H (0.7-1.3) mg/dL Est Cr Clr Drug Dosing 33.59 mL/min Estimated GFR (MDRD) 42 (>60) mL/min BUN/Creatinine Ratio 26.3 H (14-18) Glucose 158 H (83-115) mg/dL Calcium 8.6 (8.5-10.1) mg/dL Magnesium 1.9 2.0 (1.8-2.4) mg/dl Kashif Results Last 24 Hours: Microbiology 06/20/20 07:18 Aerobic Blood Culture - Preliminary Blood - Venous NO GROWTH AFTER 1 DAY Anaerobic Blood Culture - Preliminary NO GROWTH AFTER 1 DAY 06/20/20 07:35 Aerobic Blood Culture - Preliminary Blood - Venous - Lab Draw NO GROWTH AFTER 1 DAY Anaerobic Blood Culture - Preliminary NO GROWTH AFTER 1 DAY Med Orders - Current: Current Medications Acetaminophen (Tylenol) 650 mg PO Q4H PRN PRN Reason: Pain (Mild 1-3)/fever Albuterol/Ipratropium (Duoneb 3.0-0.5 Mg/3 Ml) 3 ml NEB Q4H PRN PRN Reason: Shortness Of Breath/wheezing Allopurinol (Zyloprim) 50 mg PO DAILY [facility] Last Admin: 06/21/20 09:14 Dose: 50 mg Documented by: Brimonidine Tartrate (Alphagan 0.2% Oph Soln) 0 ml EYEBOTH BID [facility] Last Admin: 06/21/20 08:31 Dose: Not Given Documented by: Calcium Carbonate/Glycine (Tums) 500 mg PO BEDTIME [facility] Last Admin: 06/20/20 21:04 Dose: 500 mg Documented by: Enoxaparin Sodium (Lovenox) 40 mg SUBCUT DAILY [facility] Last Admin: 06/21/20 08:38 Dose: 40 mg Documented by: Furosemide (Lasix) 20 mg PO DAILY [facility] Last Admin: 06/21/20 09:06 Dose: 20 mg Documented by: Ceftriaxone Sodium 2 gm/ (Sodium Chloride) 100 mls @ 200 mls/hr IV Q24H [facility] Last Admin: 06/21/20 08:33 Dose: 200 mls/hr Documented by: Lorazepam (Ativan) 0.5 mg PO Q6H PRN PRN Reason: Anxiety Last Admin: 06/21/20 09:19 Dose: 0.5 mg Documented by: Methylprednisolone Sodium Succinate (Solu-Medrol) 60 mg IVPUSH Q12H [facility] Last Admin: 06/21/20 08:39 Dose: 60 mg Documented by: Metoprolol Succinate (Toprol Xl) 25 mg PO DAILY [facility] Last Admin: 06/21/20 09:08 Dose: 25 mg Documented by: Ondansetron HCl (Zofran) 4 mg IV Q6H PRN PRN Reason: Nausea/Vomiting Polyethylene Glycol (Miralax) 17 gm PO DAILY PRN PRN Reason: Constipation Last Admin: 06/20/20 11:56 Dose: 17 gm Documented by: Psyllium Husk (Metamucil Sugar Free) 1 pkt PO DAILY PRN PRN Reason: Constipation Senna/Docusate Sodium (Senna Plus) 2 tab PO DAILY [facility] Last Admin: 06/21/20 08:36 Dose: 2 tab Documented by: Sertraline HCl (Zoloft) 25 mg PO DAILY [facility] Last Admin: 06/21/20 09:13 Dose: 25 mg Documented by: Sodium Chloride (Sodium Chloride) 1 gm PO BID [facility] Last Admin: 06/21/20 08:36 Dose: 1 gm Documented by: Vit A/Vit C/Vit E/Selen/Cu/Zn/Lutei (Icaps ) 1 tab PO DAILY [facility] Last Admin: 06/21/20 08:37 Dose: 1 tab Documented by: Discontinued Medications Albuterol/Ipratropium (Duoneb 3.0-0.5 Mg/3 Ml) 3 ml NEB ONETIME ONE Stop: 06/20/20 06:41 Last Admin: 06/20/20 06:52 Dose: 3 ml Documented by: Allopurinol (Zyloprim) 50 mg PO DAILY [facility] Furosemide (Lasix) 20 mg PO DAILY [facility] Lactated Ringer's (Ringers, Lactated) 500 mls @ 999 mls/hr IV .BOLUS ONE Stop: 06/20/20 07:10 Last Admin: 06/20/20 07:38 Dose: 999 mls/hr Documented by: Lactated Ringer's (Ringers, Lactated) 500 mls @ 1,000 mls/hr IV .BOLUS ONE Stop: 06/20/20 08:19 Last Admin: 06/20/20 08:14 Dose: Not Given Documented by: Ceftriaxone Sodium 2 gm/ (Sodium Chloride) 100 mls @ 200 mls/hr IV ONETIME ONE Stop: 06/20/20 09:46 Last Admin: 06/20/20 09:34 Dose: 200 mls/hr Documented by: Lactated Ringer's (Ringers, Lactated) 1,000 mls @ 75 mls/hr IV ASDIRECTED [facility] Stop: 06/21/20 00:49 Last Admin: 06/20/20 11:56 Dose: 75 mls/hr Documented by: Lorazepam (Ativan) 0.5 mg PO Q6H PRN PRN Reason: Anxiety Magnesium Oxide (Magnesium Oxide) 400 mg PO ONETIME ONE Stop: 06/20/20 12:32 Last Admin: 06/20/20 14:32 Dose: 400 mg Documented by: Methylprednisolone Sodium Succinate (Solu-Medrol) 125 mg IVPUSH ONETIME ONE Stop: 06/20/20 09:18 Last Admin: 06/20/20 09:32 Dose: 125 mg Documented by: Metoprolol Succinate (Toprol Xl) 50 mg PO DAILY [facility] Metoprolol Succinate (Toprol Xl) 50 mg PO DAILY [facility] Non-Formulary Medication (Aspirin) 325 mg PO BID PRN PRN Reason: Other Non-Formulary Medication (Brimonidine) 1 drop EYEBOTH BID [facility] Non-Formulary Medication (Lorazepam) 0.5 mg PO Q6HR PRN PRN Reason: Anxiety Non-Formulary Medication (Lutein/Minerals/Vit A,C & E) 1 tab PO DAILY [facility] Non-Formulary Medication (Polyethylene Glycol [Polyox [id number]]) 1 dose PO DAILY PRN PRN Reason: Constipation Non-Formulary Medication (Psyllium) 1 dose PO DAILY PRN PRN Reason: Constipation Sodium Polystyrene Sulfonate (Kayexalate) 15 gm PO ONETIME ONE Stop: 06/21/20 09:31 - Exam Quality Assessment: Supplemental Oxygen (4L ), DVT Prophylaxis General: Alert, Oriented, Cooperative, No Acute Distress HEENT: Pupils Equal, Pupils Reactive, Mucous Membr. Moist/[place] Neck: Supple, Trachea Midline Lungs: Normal Respiratory Effort, Decreased Breath Sounds. No: Rhonchi, Wheezing Cardiovascular: Regular Rate, Regular Rhythm, Other (Port accessed in left chest) GI/Abdominal Exam: Normal Bowel Sounds, Soft, Non-Tender, No Distention (Male) Exam: Deferred Back Exam: Normal Inspection, Full Range of Motion Extremities: Normal Inspection, Normal Range of Motion, Non-Tender, No Pedal Edema Skin: Warm, Dry, Intact Neurological: No New Focal Deficit Psy/Mental Status: Alert Sepsis Event Note - Evaluation Sepsis Screening Result: No Definite Risk - Focused Exam Vital Signs: Vital Signs Temp Pulse Resp BP Pulse Ox 06/21/20 09:08 100 103/65 06/21/20 03:55 97.3 F 82 22 H 114/85 99 06/20/20 23:37 97.9 F 78 20 116/94 H 96 - Problem List & Annotations (1) COPD exacerbation SNOMED Code(s): 734553581 Code(s): J44.1 - CHRONIC OBSTRUCTIVE PULMONARY DISEASE W (ACUTE) EXACERBATION Status: Acute Priority: High Current Visit: Yes (2) History of right nephrectomy SNOMED Code(s): 90240121456494 Code(s): Z90.5 - ACQUIRED ABSENCE OF KIDNEY Status: Chronic Priority: Medium Current Visit: Yes (3) Metastatic cancer to lung SNOMED Code(s): 71260802 Code(s): C78.00 - SECONDARY MALIGNANT NEOPLASM OF UNSPECIFIED LUNG Status: Chronic Priority: Medium Current Visit: Yes Qualifiers: Laterality: unspecified laterality Qualified Code(s): C78.00 - Secondary malignant neoplasm of unspecified lung (4) Dysphagia, unspecified SNOMED Code(s): 92814408, 225054005 Code(s): R13.10 - DYSPHAGIA, UNSPECIFIED Status: Chronic Priority: Low Current Visit: No Qualifiers: Dysphagia type: unspecified Qualified Code(s): R13.10 - Dysphagia, unspecified (5) Weight loss SNOMED Code(s): 22125105, 798724764 Code(s): R63.4 - ABNORMAL WEIGHT LOSS Status: Chronic Priority: Low Current Visit: No Annotation/Comment:: (6) Asthma SNOMED Code(s): 681612199 Code(s): J45.909 - UNSPECIFIED ASTHMA, UNCOMPLICATED Status: Chronic Priority: Medium Current Visit: No Qualifiers: Asthma severity: unspecified severity Asthma persistence: unspecified Asthma complication type: unspecified Qualified Code(s): J45.909 - Unspecified asthma, uncomplicated (7) COPD (chronic obstructive pulmonary disease) SNOMED Code(s): 97951950 Code(s): J44.9 - CHRONIC OBSTRUCTIVE PULMONARY DISEASE, UNSPECIFIED Status: Chronic Priority: Medium Current Visit: No Qualifiers: COPD type: unspecified COPD Qualified Code(s): J44.9 - Chronic obstructive pulmonary disease, unspecified (8) 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 SNOMED Code(s): 654241799, 298247238 Code(s): C18.9 - MALIGNANT NEOPLASM OF COLON, UNSPECIFIED; C78.7 - SECONDARY MALIG NEOPLASM OF LIVER AND INTRAHEPATIC BILE DUCT Status: Chronic Priority: Medium Current Visit: No (9) Chronic dyspnea SNOMED Code(s): 024150252 Code(s): R06.00 - DYSPNEA, UNSPECIFIED Status: Chronic Priority: Medium Current Visit: No (10) Dupuytren contracture SNOMED Code(s): 107184309 Code(s): M72.0 - PALMAR FASCIAL FIBROMATOSIS [DUPUYTREN] Status: Chronic Priority: Low Current Visit: No (11) GERD (gastroesophageal reflux disease) SNOMED Code(s): 547223552 Code(s): K21.9 - GASTRO-ESOPHAGEAL REFLUX DISEASE WITHOUT ESOPHAGITIS Status: Chronic Priority: Medium Current Visit: No Qualifiers: Esophagitis presence: with esophagitis (12) Glaucoma SNOMED Code(s): 13573530 Code(s): H40.9 - UNSPECIFIED GLAUCOMA Status: Chronic Priority: Low Current Visit: No Qualifiers: Glaucoma type: unspecified Laterality: unspecified laterality Qualified Code(s): H40.9 - Unspecified glaucoma (13) Gouty arthritis SNOMED Code(s): 31789654 Code(s): M10.9 - GOUT, UNSPECIFIED Status: Chronic Priority: Low Current Visit: No (14) History of TIA (transient ischemic attack) SNOMED Code(s): 500446959 Code(s): Z86.73 - PRSNL HX OF TIA (TIA), AND CEREB INFRC W/O RESID DEFICITS Status: Chronic Priority: Low Current Visit: No (15) History of biliary stent insertion SNOMED Code(s): 597645253 Code(s): Z98.890 - OTHER SPECIFIED POSTPROCEDURAL STATES Status: Chronic Priority: Low Current Visit: No (16) Hypertension SNOMED Code(s): 98637391 Code(s): I10 - ESSENTIAL (PRIMARY) HYPERTENSION Status: Chronic Priority: Medium Current Visit: No Qualifiers: Hypertension type: essential hypertension Qualified Code(s): I10 - Essential (primary) hypertension (17) Hyponatremia SNOMED Code(s): 76557619 Code(s): E87.1 - HYPO-OSMOLALITY AND HYPONATREMIA Status: Chronic Priority: Medium Current Visit: No (18) Macular degeneration SNOMED Code(s): 604056199 Code(s): H35.30 - UNSPECIFIED MACULAR DEGENERATION Status: Chronic Priority: Low Current Visit: No Qualifiers: Macular degeneration type: unspecified type Eye laterality: unspecified Qualified Code(s): H35.30 - Unspecified macular degeneration (19) Metastases to the liver Status: Chronic Priority: Medium Current Visit: No (20) Neoplasm of colon, 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 SNOMED Code(s): 08944649, 146639629 Code(s): D01.0 - CARCINOMA IN SITU OF COLON Status: Chronic Priority: Medium Current Visit: No (21) Port-A-Cath in place SNOMED Code(s): 586924169 Code(s): Z95.828 - PRESENCE OF OTHER VASCULAR IMPLANTS AND GRAFTS Status: Chronic Priority: Medium Current Visit: No (22) Psoriasis SNOMED Code(s): 4799706 Code(s): L40.9 - PSORIASIS, UNSPECIFIED Status: Chronic Priority: Low Current Visit: No (23) CKD (chronic kidney disease) stage 3, GFR 30-59 ml/min SNOMED Code(s): 938500629 Code(s): N18.3 - CHRONIC KIDNEY DISEASE, STAGE 3 (MODERATE) * DO NOT USE * Status: Chronic Priority: Medium Current Visit: No Qualifiers: Chronic kidney disease stage 3 subtype: stage 3a (GFR 45-59) Qualified Code(s): N18.31 - Chronic kidney disease, stage 3a (24) Constipation SNOMED Code(s): 37306252 Code(s): K59.00 - CONSTIPATION, UNSPECIFIED Status: Chronic Priority: Medium Current Visit: Yes Qualifiers: Constipation type: unspecified constipation type Qualified Code(s): K59.00 - Constipation, unspecified (25) Hypotension SNOMED Code(s): 53589733 Code(s): I95.9 - HYPOTENSION, UNSPECIFIED Status: Acute Priority: High Current Visit: Yes Qualifiers: Hypotension type: unspecified hypotension type Qualified Code(s): I95.9 - Hypotension, unspecified (26) Hypoalbuminemia SNOMED Code(s): 240903523 Code(s): E88.09 - OTH DISORDERS OF PLASMA-PROTEIN METABOLISM, NEC Status: Acute Priority: High Current Visit: Yes (27) Former smoker SNOMED Code(s): 6095618 Code(s): Z87.891 - PERSONAL HISTORY OF NICOTINE DEPENDENCE Status: Chronic Priority: Medium Current Visit: No (28) Hyperkalemia SNOMED Code(s): 79642926 Code(s): E87.5 - HYPERKALEMIA Status: Acute Priority: High Current Visit: Yes - Problem List Review Problem List Initiated/Reviewed/Updated: Yes - My Orders Last 24 Hours: My Active Orders 06/20/20 09:41 Height and Weight [RC] 06 Intake and Output [RC] 04,16 Oxygen Therapy [RC] PRN Up With Assistance [RC] BID VTE/DVT Education [RC] DAILY Vital Signs [RC] Q4HR Consult to Case Management/Glass Mould Cleaner [CONS] Routine OT Evaluation and Treatment [CONS] Routine PT Evaluation and Treatment [CONS] Routine Respiratory Care Assess and Treatment [CONS] Routine Acetaminophen [TylenoL] 650 mg PO Q4H PRN Albuterol/Ipratropium [DuoNeb 3.0-0.5 MG/3 ML] 3 ml NEB Q4H PRN Ondansetron [Zofran] 4 mg IV Q6H PRN 06/20/20 09:42 Pulse Oximetry [RC] PRN 06/20/20 11:00 Psyllium Husk/Aspartame [Metamucil Sugar Free] 1 pkt PO DAILY PRN polyethylene glycoL 3350 [MiraLAX] 17 gm PO DAILY PRN 06/20/20 11:07 RT Incentive Spirometry [RC] ASDIRECTED 06/20/20 11:43 Consult to Threat Monitoring Analyst [CONS] Routine 06/20/20 13:48 LORazepam [Ativan] 0.5 mg PO Q6H PRN 06/20/20 21:00 Brimonidine [Alphagan 0.2% Ophth Soln] 0 ml EYEBOTH BID Calcium Carbonate [Tums] 500 mg PO BEDTIME Sodium Chloride 1 gm PO BID methylPREDNISolone Sod Succ [Solu-MEDROL] 60 mg IVPUSH Q12H 06/21/20 09:00 Docusate Sodium/Sennosides [Senna Plus] 2 tab PO DAILY Enoxaparin [Lovenox] 40 mg SUBCUT DAILY Furosemide [Lasix] 20 mg PO DAILY Metoprolol Succinate [Toprol XL] 25 mg PO DAILY Multivitamins/Min/FA/Lut/Zeax [ICaps MV] 1 tab PO DAILY allopurinoL [Zyloprim] 50 mg PO DAILY cefTRIAXone [Rocephin] 2 gm Sodium Chloride 0.9% [Normal Saline] 100 ml IV Q24H 06/22/20 05:11 BASIC METABOLIC PANEL,BMP [CHEM] AM CBC WITH AUTO DIFF [HEME] AM MAGNESIUM [CHEM] AM 06/23/20 05:11 BASIC METABOLIC PANEL,BMP [CHEM] AM CBC WITH AUTO DIFF [HEME] AM MAGNESIUM [CHEM] AM 06/24/20 05:11 BASIC METABOLIC PANEL,BMP [CHEM] AM CBC WITH AUTO DIFF [HEME] AM MAGNESIUM [CHEM] AM - Assessment Assessment:: Assessment - day of admission - 06/20/20 * 79 yo male who presents to our ED via [facility] with shortness of breath * Patient reports worsening SOB since last night and productive cough * History of metastatic lung, liver, and colon cancer, COPD, asthma, dyspagia, CKD, Rt. Nephrectomy, gerd, HTN, glaucoma, macular degeneration, gout, TIA, depressoin, Iron deficiency, Psoriasis, hyponatremia * Chronically on 4L o2 * Stopped chemotherapy about a year ago as he reports he was feeling worse than the cancer itself * Aware he will ultimately from his cancer * Reports chronic cough and sputum production but this has not gotten any worse * 12-lead EKG in ED shows sinus tachycardia with no signs of ischemia * CXR in ED shows multiple areas of lung cancer but no acute infiltrates * Labs in ED: * WBC 10.19 (likely stress and not infectious) * Hgb 11.0 * Neutrophils 8.39 * INR 1.10 * Sodium 135 (chronic) * Potassium 5.0 * Carbon dioxide 26 * Anion gap 14.0 * BUN 32, Creatinine 1.4, GFR 49 (appears slightly worse than baseline) * Glucose 144 * AST 36, ALT 36, Alk Phos 127 * Troponin <0.017 * Protein 6.1 * Albumin 2.0 * Lactic acid 1.5 * UA negative but 1+ protein and moderate amorphous sediment noted * Negative SARS-CoV-2 RNA * Blood cultures pending * Given two 500ml Fluid boluses, started on 2gm Rocephin and 125mg solumedrol; Given DuoNeb treatment * Sepsis screen: * Unknown bacterial infection - receiving empiric Rocephin, tachycardia and tachypnea. Hypotension after admission * Meets criteria, although it is felt this is 2/2 his chronic progressing lung cancer and not likely sepsis * Patient has had variable blood pressures and tachycardia on prior visits * Blood cultures obtained prior to admission in ED * Will continue to monitor vital signs and treat accordingly * Admitted observation status for management of COPD exacerbation, hypoxia 06/21/20 * Reports continued SOB * Remains on 4L O2 (baseline) * Labs today: * WBC 8.58 * Hemoglobin 9.4 (due to IV fluids) * Platelets 261 * Neutrophils 7.85 * Sodium 136 * Potassium 5.5 * Anion gap 14.5 * BUN 42, Creatinine 1.6, GFR 42 * Magnesium 2.0 * Blood cultures negative * Discontinue Rocephin * Will remain admitted today with likely discharge tomorrow * - Plan Plan:: COPD exacerbation Metastatic cancer to lung Asthma COPD (chronic obstructive pulmonary disease) Chronic dyspnea Port-A-Cath in place Hypotension Former smoker * Discontinue rocephin * Access port * Steroids as ordered * IS as directed * O2 as needed - baseline 4L * PRN duonebs * IV fluids as ordered * RT consultation * Blood cultures pending * PT/OT History of right nephrectomy CKD (chronic kidney disease) stage 3, GFR 30-59 ml/min * Avoid nephrotoxic meds if able * Monitor labs * IV fluids as ordered Dysphagia, unspecified Weight loss 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 Metastases to the liver Neoplasm of colon, 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 Caldera DVT Prophylaxis: Lovenox Social: Patient resides in a home with his . He was discharged during his last visit (05/31/20-06/03/20) on home health. Disposition: Patient admitted to [facility] observation status for management of COPD exacerbation with hypoxia. Prognosis: Overall poor prognosis given neoplasm metastasis, weight loss.
[2020-06-21] MEDS: Calcium Carbonate 500 MG Tab.Chew PO SCH (20:42)
[2020-06-21] MEDS: Benzonatate 100 MG Cap PO PRN (20:43)
--- NOTE | 2020-06-22 07:35 | PCM.PN ---
- General Info Date of Service: 06/22/20 Admission Dx/Problem (Free Text): COPD exacerbation Subjective Update: In to see Wellde he is sitting up in bed eating and his son is at bedside. He reports that he feels better than yesterday but still not great. He reports that he struggled with steps. He did see Dr. Sabillon who recommended some medication changes. His creatinine has slowly been creeping up while here so we will start IV fluids recheck labs in the morning. Social work department was in to discuss and provide patient materials on hospice as he is aware his condition will ultimately be fatal. Will reassess labs in the morning and adjust plan as necessary. Functional Status: Reports: Pain Controlled, Tolerating Diet, Ambulating, Urinating, Incentive Spirometry, Other (Acapella ). Denies: New Symptoms - Review of Systems General: Reports: No Symptoms, Weakness, Fatigue. Denies: Fever, Malaise, Chills HEENT: Reports: No Symptoms. Denies: Headaches, Sore Throat Pulmonary: Reports: Shortness of Breath (chronic - improving ), Cough (chronic ), Sputum (chronic ). Denies: Wheezing Cardiovascular: Reports: Dyspnea on Exertion (chronice ). Denies: Chest Pain, Palpitations, Lightheadedness Gastrointestinal: Reports: No Symptoms. Denies: Abdominal Pain, Constipation, Diarrhea, Nausea, Vomiting Genitourinary: Reports: No Symptoms. Denies: Pain Musculoskeletal: Reports: No Symptoms Skin: Reports: No Symptoms. Denies: Cyanosis Neurological: Reports: No Symptoms, Difficulty Walking, Weakness, Gait Disturbance. Denies: Confusion, Numbness, Pre-Existing Deficit, Tingling Psychiatric: Reports: No Symptoms - Patient Data Vitals - Most Recent: Last Vital Signs Temp 97.3 F 06/22/20 03:49 Pulse 81 06/22/20 03:49 Resp 16 06/22/20 03:49 BP 112/66 06/22/20 03:49 Pulse Ox 100 06/22/20 06:12 Weight - Most Recent: 134 lb 12.8 oz I&O - Last 24 Hours: Intake & Output 06/21/20 06/22/20 06/22/20 22:59 06:59 14:59 Intake Total 580 250 Balance 580 250 Lab Results Last 24 Hours: Laboratory Results - last 24 hr 06/22/20 06/22/20 Range/Units 05:40 05:40 WBC 9.65 H (4.23-9.07) K/mm3 RBC 3.45 L (4.63-6.08) M/mm3 Hgb 8.7 L (13.7-17.5) gm/dl Hct 29.0 L (40.1-51.0) % MCV 84.1 (79.0-92.2) fl MCH 25.2 L (25.7-32.2) pg MCHC 30.0 L (32.2-35.5) g/dl RDW Std Deviation 45.6 H (35.1-43.9) fL Plt Count 286 (163-337) K/mm3 MPV 9.6 (9.4-12.3) fl Neut % (Auto) 90.5 H (34.0-67.9) % Lymph % (Auto) 3.9 L (21.8-53.1) % Reagan % (Auto) 5.4 (5.3-12.2) % Eos % (Auto) 0 L (0.8-7.0) Baso % (Auto) 0.0 L (0.1-1.2) % Neut # (Auto) 8.73 H (1.78-5.38) K/mm3 Lymph # (Auto) 0.38 L (1.32-3.57) K/mm3 Reagan # (Auto) 0.52 (0.30-0.82) K/mm3 Eos # (Auto) 0.00 L (0.04-0.54) K/mm3 Baso # (Auto) 0.00 L (0.01-0.08) K/mm3 Manual Slide Review Abnormal smear Sodium 135 L (136-145) mEq/L Potassium 5.2 H (3.5-5.1) mEq/L Chloride 99 (98-107) mEq/L Carbon Dioxide 27 (21-32) mEq/L Anion Gap 14.2 (5-15) BUN 53 H (7-18) mg/dL Creatinine 1.8 H (0.7-1.3) mg/dL Est Cr Clr Drug Dosing 28.31 mL/min Estimated GFR (MDRD) 36 (>60) mL/min BUN/Creatinine Ratio 29.4 H (14-18) Glucose 147 H (83-115) mg/dL Calcium 8.2 L (8.5-10.1) mg/dL Magnesium 2.1 (1.8-2.4) mg/dl Kashif Results Last 24 Hours: Microbiology 06/20/20 07:18 Aerobic Blood Culture - Preliminary Blood - Venous NO GROWTH AFTER 1 DAY Anaerobic Blood Culture - Preliminary NO GROWTH AFTER 1 DAY 06/20/20 07:35 Aerobic Blood Culture - Preliminary Blood - Venous - Lab Draw NO GROWTH AFTER 1 DAY Anaerobic Blood Culture - Preliminary NO GROWTH AFTER 1 DAY Med Orders - Current: Current Medications Acetaminophen (Tylenol) 650 mg PO Q4H PRN PRN Reason: Pain (Mild 1-3)/fever Albuterol/Ipratropium (Duoneb 3.0-0.5 Mg/3 Ml) 3 ml NEB Q4H PRN PRN Reason: Shortness Of Breath/wheezing Allopurinol (Zyloprim) 50 mg PO DAILY [facility] Last Admin: 06/21/20 09:14 Dose: 50 mg Documented by: Benzonatate (Tessalon Perles) 100 mg PO TID PRN PRN Reason: Cough Last Admin: 06/21/20 20:43 Dose: 100 mg Documented by: Brimonidine Tartrate (Alphagan 0.2% Ophth Soln) 0 ml EYEBOTH BID [facility] Last Admin: 06/21/20 20:42 Dose: 1 drop Documented by: Calcium Carbonate/Glycine (Tums) 500 mg PO BEDTIME [facility] Last Admin: 06/21/20 20:42 Dose: 500 mg Documented by: Enoxaparin Sodium (Lovenox) 40 mg SUBCUT DAILY [facility] Last Admin: 06/21/20 08:38 Dose: 40 mg Documented by: Lorazepam (Ativan) 0.5 mg PO Q6H PRN PRN Reason: Anxiety Last Admin: 06/21/20 20:53 Dose: 0.5 mg Documented by: Methylprednisolone Sodium Succinate (Solu-Medrol) 60 mg IVPUSH Q12H [facility] Last Admin: 06/21/20 20:42 Dose: 60 mg Documented by: Metoprolol Succinate (Toprol Xl) 25 mg PO DAILY [facility] Last Admin: 06/21/20 09:08 Dose: 25 mg Documented by: Ondansetron HCl (Zofran) 4 mg IV Q6H PRN PRN Reason: Nausea/Vomiting Polyethylene Glycol (Miralax) 17 gm PO DAILY PRN PRN Reason: Constipation Last Admin: 06/20/20 11:56 Dose: 17 gm Documented by: Psyllium Husk (Metamucil Sugar Free) 1 pkt PO DAILY PRN PRN Reason: Constipation Senna/Docusate Sodium (Senna Plus) 2 tab PO DAILY [facility] Last Admin: 06/21/20 08:36 Dose: 2 tab Documented by: Sertraline HCl (Zoloft) 25 mg PO DAILY [facility] Last Admin: 06/21/20 09:13 Dose: 25 mg Documented by: Sodium Chloride (Sodium Chloride) 1 gm PO BID [facility] Last Admin: 06/21/20 20:42 Dose: 1 gm Documented by: Vit A/Vit C/Vit E/Selen/Cu/Zn/Lutei (Icaps Mv) 1 tab PO DAILY [facility] Last Admin: 06/21/20 08:37 Dose: 1 tab Documented by: Discontinued Medications Albuterol/Ipratropium (Duoneb 3.0-0.5 Mg/3 Ml) 3 ml NEB ONETIME ONE Stop: 06/20/20 06:41 Last Admin: 06/20/20 06:52 Dose: 3 ml Documented by: Allopurinol (Zyloprim) 50 mg PO DAILY [facility] Furosemide (Lasix) 20 mg PO DAILY [facility] Furosemide (Lasix) 20 mg PO DAILY [facility] Last Admin: 06/21/20 09:06 Dose: 20 mg Documented by: Lactated Ringer's (Ringers, Lactated) 500 mls @ 999 mls/hr IV .BOLUS ONE Stop: 06/20/20 07:10 Last Admin: 06/20/20 07:38 Dose: 999 mls/hr Documented by: Lactated Ringer's (Ringers, Lactated) 500 mls @ 1,000 mls/hr IV .BOLUS ONE Stop: 06/20/20 08:19 Last Admin: 06/20/20 08:14 Dose: Not Given Documented by: Ceftriaxone Sodium 2 gm/ (Sodium Chloride) 100 mls @ 200 mls/hr IV ONETIME ONE Stop: 06/20/20 09:46 Last Admin: 06/20/20 09:34 Dose: 200 mls/hr Documented by: Ceftriaxone Sodium 2 gm/ (Sodium Chloride) 100 mls @ 200 mls/hr IV Q24H [facility] Last Admin: 06/21/20 08:33 Dose: 200 mls/hr Documented by: Lactated Ringer's (Ringers, Lactated) 1,000 mls @ 75 mls/hr IV ASDIRECTED [facility] Stop: 06/21/20 00:49 Last Admin: 06/20/20 11:56 Dose: 75 mls/hr Documented by: Lorazepam (Ativan) 0.5 mg PO Q6H PRN PRN Reason: Anxiety Magnesium Oxide (Magnesium Oxide) 400 mg PO ONETIME ONE Stop: 06/20/20 12:32 Last Admin: 06/20/20 14:32 Dose: 400 mg Documented by: Methylprednisolone Sodium Succinate (Solu-Medrol) 125 mg IVPUSH ONETIME ONE Stop: 06/20/20 09:18 Last Admin: 06/20/20 09:32 Dose: 125 mg Documented by: Metoprolol Succinate (Toprol Xl) 50 mg PO DAILY [facility] Metoprolol Succinate (Toprol Xl) 50 mg PO DAILY [facility] Non-Formulary Medication (Aspirin) 325 mg PO BID PRN PRN Reason: Other Non-Formulary Medication (Brimonidine) 1 drop EYEBOTH BID [facility] Non-Formulary Medication (Lorazepam) 0.5 mg PO Q6HR PRN PRN Reason: Anxiety Non-Formulary Medication (Lutein/Minerals/Vit A,C & E) 1 tab PO DAILY [facility] Non-Formulary Medication (Polyethylene Glycol [Polyox [id number]]) 1 dose PO DAILY PRN PRN Reason: Constipation Non-Formulary Medication (Psyllium) 1 dose PO DAILY PRN PRN Reason: Constipation Sodium Polystyrene Sulfonate (Kayexalate) 15 gm PO ONETIME ONE Stop: 06/21/20 09:31 Last Admin: 06/21/20 11:11 Dose: 15 gm Documented by: - Exam Quality Assessment: Supplemental Oxygen (4l - baseline ), DVT Prophylaxis. No: Urine Catheter General: Alert, Oriented, Cooperative, No Acute Distress HEENT: Pupils Equal, Pupils Reactive, Mucous Membr. Moist/Arp Neck: Supple, Trachea Midline Lungs: Normal Respiratory Effort, Decreased Breath Sounds. No: Rhonchi, Wheezing Cardiovascular: Regular Rate, Regular Rhythm GI/Abdominal Exam: Normal Bowel Sounds, Soft, Non-Tender, No Distention (Male) Exam: Deferred Back Exam: Normal Inspection, Full Range of Motion Extremities: Normal Inspection, Normal Range of Motion, Non-Tender, No Pedal Edema, Normal Capillary Refill Skin: Warm, Dry, Intact Neurological: No New Focal Deficit Psy/Mental Status: Alert, Depressed Sepsis Event Note - Evaluation Sepsis Screening Result: No Definite Risk - Focused Exam Vital Signs: Vital Signs Temp Pulse Resp BP Pulse Ox Pulse Ox 06/22/20 06:12 100 06/22/20 03:49 97.3 F 81 16 112/66 100 06/22/20 01:07 98.2 F 20 112/69 06/21/20 20:32 100 06/21/20 20:09 97.5 F 89 30 H 121/65 100 - Problem List & Annotations (1) COPD exacerbation SNOMED Code(s): 528927122 Code(s): J44.1 - CHRONIC OBSTRUCTIVE PULMONARY DISEASE W (ACUTE) EXACERBATION Status: Acute Priority: High Current Visit: Yes (2) History of right nephrectomy SNOMED Code(s): 20439368148314 Code(s): Z90.5 - ACQUIRED ABSENCE OF KIDNEY Status: Chronic Priority: Medium Current Visit: Yes (3) Metastatic cancer to lung SNOMED Code(s): 68747201 Code(s): C78.00 - SECONDARY MALIGNANT NEOPLASM OF UNSPECIFIED LUNG Status: Chronic Priority: Medium Current Visit: Yes Qualifiers: Laterality: unspecified laterality Qualified Code(s): C78.00 - Secondary malignant neoplasm of unspecified lung (4) Dysphagia, unspecified SNOMED Code(s): 90622757, 923441050 Code(s): R13.10 - DYSPHAGIA, UNSPECIFIED Status: Chronic Priority: Low Current Visit: No Qualifiers: Dysphagia type: unspecified Qualified Code(s): R13.10 - Dysphagia, unspecified (5) Weight loss SNOMED Code(s): 90623462, 262445553 Code(s): R63.4 - ABNORMAL WEIGHT LOSS Status: Chronic Priority: Low Current Visit: No Annotation/Comment:: (6) Asthma SNOMED Code(s): 107882910 Code(s): J45.909 - UNSPECIFIED ASTHMA, UNCOMPLICATED Status: Chronic Priority: Medium Current Visit: No Qualifiers: Asthma severity: unspecified severity Asthma persistence: unspecified Asthma complication type: unspecified Qualified Code(s): J45.909 - Unspecified asthma, uncomplicated (7) COPD (chronic obstructive pulmonary disease) SNOMED Code(s): 34657954 Code(s): J44.9 - CHRONIC OBSTRUCTIVE PULMONARY DISEASE, UNSPECIFIED Status: Chronic Priority: Medium Current Visit: No Qualifiers: COPD type: unspecified COPD Qualified Code(s): J44.9 - Chronic obstructive pulmonary disease, unspecified (8) 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 SNOMED Code(s): 969668395, 221938839 Code(s): C18.9 - MALIGNANT NEOPLASM OF COLON, UNSPECIFIED; C78.7 - SECONDARY MALIG NEOPLASM OF LIVER AND INTRAHEPATIC BILE DUCT Status: Chronic Priority: Medium Current Visit: No (9) Chronic dyspnea SNOMED Code(s): 124271404 Code(s): R06.00 - DYSPNEA, UNSPECIFIED Status: Chronic Priority: Medium Current Visit: No (10) Dupuytren contracture SNOMED Code(s): 980087624 Code(s): M72.0 - PALMAR FASCIAL FIBROMATOSIS [DUPUYTREN] Status: Chronic Priority: Low Current Visit: No (11) GERD (gastroesophageal reflux disease) SNOMED Code(s): 236445019 Code(s): K21.9 - GASTRO-ESOPHAGEAL REFLUX DISEASE WITHOUT ESOPHAGITIS Status: Chronic Priority: Medium Current Visit: No Qualifiers: Esophagitis presence: with esophagitis (12) Glaucoma SNOMED Code(s): 92349582 Code(s): H40.9 - UNSPECIFIED GLAUCOMA Status: Chronic Priority: Low Current Visit: No Qualifiers: Glaucoma type: unspecified Laterality: unspecified laterality Qualified Code(s): H40.9 - Unspecified glaucoma (13) Gouty arthritis SNOMED Code(s): 02336090 Code(s): M10.9 - GOUT, UNSPECIFIED Status: Chronic Priority: Low Current Visit: No (14) History of TIA (transient ischemic attack) SNOMED Code(s): 827849616 Code(s): Z86.73 - PRSNL HX OF TIA (TIA), AND CEREB INFRC W/O RESID DEFICITS Status: Chronic Priority: Low Current Visit: No (15) History of biliary stent insertion SNOMED Code(s): 188851276 Code(s): Z98.890 - OTHER SPECIFIED POSTPROCEDURAL STATES Status: Chronic Priority: Low Current Visit: No (16) Hypertension SNOMED Code(s): 64582021 Code(s): I10 - ESSENTIAL (PRIMARY) HYPERTENSION Status: Chronic Priority: Medium Current Visit: No Qualifiers: Hypertension type: essential hypertension Qualified Code(s): I10 - Essential (primary) hypertension (17) Hyponatremia SNOMED Code(s): 27317201 Code(s): E87.1 - HYPO-OSMOLALITY AND HYPONATREMIA Status: Chronic Priority: Medium Current Visit: No (18) Macular degeneration SNOMED Code(s): 592129535 Code(s): H35.30 - UNSPECIFIED MACULAR DEGENERATION Status: Chronic Priority: Low Current Visit: No Qualifiers: Macular degeneration type: unspecified type Eye laterality: unspecified Qualified Code(s): H35.30 - Unspecified macular degeneration (19) Metastases to the liver Status: Chronic Priority: Medium Current Visit: No (20) Neoplasm of colon, 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 SNOMED Code(s): 50872663, 588300996 Code(s): D01.0 - CARCINOMA IN SITU OF COLON Status: Chronic Priority: Medium Current Visit: No (21) Port-A-Cath in place SNOMED Code(s): 255696737 Code(s): Z95.828 - PRESENCE OF OTHER VASCULAR IMPLANTS AND GRAFTS Status: Chronic Priority: Medium Current Visit: No (22) Psoriasis SNOMED Code(s): 3237552 Code(s): L40.9 - PSORIASIS, UNSPECIFIED Status: Chronic Priority: Low Current Visit: No (23) CKD (chronic kidney disease) stage 3, GFR 30-59 ml/min SNOMED Code(s): 959125836 Code(s): N18.3 - CHRONIC KIDNEY DISEASE, STAGE 3 (MODERATE) * DO NOT USE * Status: Chronic Priority: Medium Current Visit: No Qualifiers: Chronic kidney disease stage 3 subtype: stage 3a (GFR 45-59) Qualified Code(s): N18.31 - Chronic kidney disease, stage 3a (24) Constipation SNOMED Code(s): 66698264 Code(s): K59.00 - CONSTIPATION, UNSPECIFIED Status: Chronic Priority: Medium Current Visit: Yes Qualifiers: Constipation type: unspecified constipation type Qualified Code(s): K59.00 - Constipation, unspecified (25) Hypotension SNOMED Code(s): 24851546 Code(s): I95.9 - HYPOTENSION, UNSPECIFIED Status: Acute Priority: High Current Visit: Yes Qualifiers: Hypotension type: unspecified hypotension type Qualified Code(s): I95.9 - Hypotension, unspecified (26) Hypoalbuminemia SNOMED Code(s): 123655933 Code(s): E88.09 - OTH DISORDERS OF PLASMA-PROTEIN METABOLISM, NEC Status: Acute Priority: High Current Visit: Yes (27) Former smoker SNOMED Code(s): 3818855 Code(s): Z87.891 - PERSONAL HISTORY OF NICOTINE DEPENDENCE Status: Chronic Priority: Medium Current Visit: No (28) Hyperkalemia SNOMED Code(s): 68127002 Code(s): E87.5 - HYPERKALEMIA Status: Acute Priority: High Current Visit: Yes - Problem List Review Problem List Initiated/Reviewed/Updated: Yes - My Orders Last 24 Hours: My Active Orders 06/21/20 09:00 Docusate Sodium/Sennosides [Senna Plus] 2 tab PO DAILY Enoxaparin [Lovenox] 40 mg SUBCUT DAILY Metoprolol Succinate [Toprol XL] 25 mg PO DAILY Multivitamins/Min/FA/Lut/Zeax [ICaps MV] 1 tab PO DAILY allopurinoL [Zyloprim] 50 mg PO DAILY 06/21/20 16:53 Consult to Physician [CONS] Routine 06/21/20 16:54 Notify Provider Consults [RC] ASDIRECTED 06/21/20 16:57 Consult to Hospice [CONS] Routine 06/21/20 18:01 Benzonatate [Tessalon Perles] 100 mg PO TID PRN 06/23/20 05:11 BASIC METABOLIC PANEL,BMP [CHEM] AM CBC WITH AUTO DIFF [HEME] AM MAGNESIUM [CHEM] AM 06/24/20 05:11 BASIC METABOLIC PANEL,BMP [CHEM] AM CBC WITH AUTO DIFF [HEME] AM MAGNESIUM [CHEM] AM - Assessment Assessment:: Assessment - day of admission - 06/20/20 * 79 yo male who presents to our ED via [facility] with shortness of breath * Patient reports worsening SOB since last night and productive cough * History of metastatic lung, liver, and colon cancer, COPD, asthma, dyspagia, CKD, Rt. Nephrectomy, gerd, HTN, glaucoma, macular degeneration, gout, TIA, depressoin, Iron deficiency, Psoriasis, hyponatremia * Chronically on 4L o2 * Stopped chemotherapy about a year ago as he reports he was feeling worse than the cancer itself * Aware he will ultimately from his cancer * Reports chronic cough and sputum production but this has not gotten any worse * 12-lead EKG in ED shows sinus tachycardia with no signs of ischemia * CXR in ED shows multiple areas of lung cancer but no acute infiltrates * Labs in ED: * WBC 10.19 (likely stress and not infectious) * Hgb 11.0 * Neutrophils 8.39 * INR 1.10 * Sodium 135 (chronic) * Potassium 5.0 * Carbon dioxide 26 * Anion gap 14.0 * BUN 32, Creatinine 1.4, GFR 49 (appears slightly worse than baseline) * Glucose 144 * AST 36, ALT 36, Alk Phos 127 * Troponin <0.017 * Protein 6.1 * Albumin 2.0 * Lactic acid 1.5 * UA negative but 1+ protein and moderate amorphous sediment noted * Negative SARS-CoV-2 RNA * Blood cultures pending * Given two 500ml Fluid boluses, started on 2gm Rocephin and 125mg solumedrol; Given DuoNeb treatment * Sepsis screen: * Unknown bacterial infection - receiving empiric Rocephin, tachycardia and tachypnea. Hypotension after admission * Meets criteria, although it is felt this is 2/2 his chronic progressing lung cancer and not likely sepsis * Patient has had variable blood pressures and tachycardia on prior visits * Blood cultures obtained prior to admission in ED * Will continue to monitor vital signs and treat accordingly * Admitted observation status for management of COPD exacerbation, hypoxia 06/21/20 * Reports continued SOB * Remains on 4L O2 (baseline) * Labs today: * WBC 8.58 * Hemoglobin 9.4 (due to IV fluids) * Platelets 261 * Neutrophils 7.85 * Sodium 136 * Potassium 5.5 * Anion gap 14.5 * BUN 42, Creatinine 1.6, GFR 42 * Magnesium 2.0 * Blood cultures negative * Discontinue Rocephin * Will remain admitted today with likely discharge tomorrow 06/22/20 * Continued SOB although reports better than yesterday * Still feels week * Creatinine increased again today - will start IV fluids * Blood cultures remain negative * Decrease steroids to 60mg daily * Upgraded to inpatient due to need for continued treatment * Las today: * WBC 9.65 * Hemoglobin 8.7 * Platelets 286,000 * Neutrophils 8.73 * Sodium 135 * Potassium 5.2 * BUN 53, Creatinine 1.8, GFR 36 * Glucose 147 * Calcium 8.2 * Visited with Dr. Sabillon. Increased zoloft * Social work in to provide information about hospice care and answer questions. Patient does not want formal consult * Review labs in AM and adjust plan then - Plan Plan:: COPD exacerbation Metastatic cancer to lung Asthma COPD (chronic obstructive pulmonary disease) Chronic dyspnea Port-A-Cath in place Hypotension Former smoker * Discontinue rocephin * Access port * Steroids as ordered * IS as directed * O2 as needed - baseline 4L * PRN duonebs * IV fluids as ordered * RT consultation * Blood cultures pending * PT/OT History of right nephrectomy CKD (chronic kidney disease) stage 3, GFR 30-59 ml/min * Avoid nephrotoxic meds if able * Monitor labs * IV fluids as ordered Dysphagia, unspecified Weight loss 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 Metastases to the liver Neoplasm of colon, 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 Sabillon - recommends increasing zoloft * Continue PRN Ativan as ordered Code status: DNR/DNI PCP: Dr. Caldera DVT Prophylaxis: Lovenox Social: Patient resides in a home with his . He was discharged during his last visit (05/31/20-06/03/20) on home health. Disposition: Patient admitted to [facility] [place] observation status for management of COPD exacerbation with hypoxia. Upgraded to inpatient on 06/22/20 due to worsening renal function. Prognosis: Overall poor prognosis given neoplasm metastasis, weight loss.
[2020-06-22] MEDS ORDERED: Lactated Ringers 1,000 ML IV SCH (07:45)
[2020-06-22] MEDS: LORAZEPAM 0.5 MG PO PRN (10:02)
[2020-06-22] MEDS: Multivitamins with Minerals/Folic Acid/Lutein/Zeaxanth Tab PO SCH (10:04)
[2020-06-22] MEDS: Enoxaparin 40 MG/0.4 ML Syringe SUBCUT SCH (10:05)
[2020-06-22] MEDS: Brimonidine 0.2% Ophth Soln 5 ML Bottle EYEBOTH SCH ×2 (10:05→20:37)
[2020-06-22] MEDS: Sodium Chloride 1 GM Tab PO SCH ×2 (10:05→20:37)
[2020-06-22] MEDS: methylPREDNISolone Sodium Succinate 40 MG/1 ML SDV IVPUSH SCH (10:06)
[2020-06-22] MEDS: Metoprolol Succinate 50 MG Tab.ER **PTOM PO SCH (10:10)
[2020-06-22] MEDS: SERTRALINE 25 MG PO SCH (10:11)
[2020-06-22] MEDS: Allopurinol 100 MG Tab **PTOM PO SCH (10:11)
[2020-06-22] MEDS: Benzonatate 100 MG Cap PO PRN (10:14)
--- NOTE | 2020-06-22 15:47 | CONS ---
CONSULTING PHYSICIAN: Lorenzo Sabillon MD DATE OF CONSULTATION: 06/22/2020 Site where the services are provided is [facility] in [place], [place]. Site where the services are provided from our offices in [facility]. Length of service for this 60-minute inpatient telemedicine event is 60 minutes. IDENTIFICATION: The patient is an 79-year-old male who was admitted to the inpatient Med/Surg Unit in [facility] in [place], [place]. He is seen for psychiatric consultation per the request of staff attending, Dr. Noble, and his treatment team. The patient's son is also present for the interview. CHIEF COMPLAINT: "Just cough. Thrown up so much of this phlegm. Just having a hard time breathing." HISTORY OF PRESENT ILLNESS: The patient is an 79-year-old male who reports that he has been struggling with lung cancer "for about 20 years" now. He denies that he is smoking anymore and states that he stopped long time ago, but he has these episodes where the complications "come and go." The patient states that he has also been struggling with some depression because of the chronicity and severity of his illness, and he states that he started a regimen of Zoloft and some as-needed Ativan "about a month ago." He states his regular doctor, Dr. Caldera, out in [facility], initially prescribed the medication. He states that the medication initially made him nauseous, but when he started taking with food it got a little better, and he does note that the medications "seem to help some. It calms me down a little bit." He states also the depression might not be so bad. The patient is open to trying a higher dose to see if that will help him feel even better because he does know "I do get depressed." He denies any illicit substance use or excessive alcohol use complicating his clinical picture. MEDICATIONS: Psychiatric medications at the time of presentation: 1. Zoloft 25 mg q.a.m. 2. Ativan 0.5 mg q.i.d. p.r.n. acute anxiety. ALLERGIES: 1. Azithromycin. 2. Sulfa. 3. Penicillin. 4. Omeprazole. 5. Lansoprazole. 6. . PAST MEDICAL HISTORY: Significant for lung cancer, currently being treated. REVIEW OF SYSTEMS: Aside from pulmonary, all other major organ systems are negative at this point in time for acute difficulties or complications. FAMILY PSYCHIATRIC AND CD HISTORY: None reported. PAST PSYCHIATRIC AND CD HISTORY: The patient denies any previous psychiatric hospitalizations or chemical dependency treatments. He denies any previous suicide attempts or self- injurious behavior history. Denies any eating disorder history. Reports no abuse issues. Denies any previous psychiatric medication history. Primary outpatient care provider is Dr. Caldera out in [facility] in [place], [place]. SOCIAL HISTORY: The patient was born and raised in [place], [place]. 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 He has currently been living in [place], [place], with his for a number of years. His son also lives in the area. He states that he is Christianity in terms of his romero formation, and he enjoys driving in his spare time. MENTAL STATUS EXAM: The patient is an 79-year-old white male in no apparent distress. Speech is of regular rate and rhythm. The patient is cognitively oriented x3. Psychomotor activity is within normal limits. There are no abnormal motor movements or tics observed. Gait and station are not observed. The patient is seated on side of bed for the purposes of the inpatient consult. Mood is depressed and anxious. Affect is cooperative overall for the purposes of the inpatient consult, perhaps somewhat negative. However, there is no behavioral or stated evidence of acute suicidal or homicidal ideation or acute psychotic, delusional, or paranoid symptoms. Thought processes are organized and there are no manic symptoms or loose associations evident. Judgment and insight appear unimpaired at this point in time. Motivation for help is good. VITALS: 112/66, 93, 14, 97.4 degrees. IMPRESSION: Alexander I: 1. Major depressive disorder, F32.1. 2. Anxiety disorder, not otherwise specified, F41.9. Alexander II: None. Alexander III: Lung cancer, currently being treated. Alexander IV: Severe. Alexander V: 60 to 65. PLAN: 1. Increase the patient's Zoloft from 25 to 50 mg q.a.m. to help reduce symptoms of depression and anxiety. 2. Would continue Ativan 0.5 mg q.i.d. p.r.n. for anxiety as long as the patient's pulmonary function is stable. 3. Other medications as dosed and prescribed by the patient's primary inpatient medical treatment team. 4. The patient is apprised of benefits and side effects of his newly adjusted and continued psychiatric medication regimen. The patient and the patient's son acknowledged their understanding to these facts and had no further questions by the end of the interview session. 5. The patient is instructed to maintain good hydration status to help with full function throughout the day. 6. The patient is instructed to maintain caffeine moderation also to help with full function throughout the day and to prevent any breakthrough symptoms of anxiety. 7. Medication compliance. 8. Recommend the patient to follow up with Outpatient Psychiatry to assess his overall function and efficacy of his newly adjusted and continued psychiatric medication regimen when he is medically stabilized and discharged back to the community. 9. We will follow up with the patient on an as-needed basis while he remains on the inpatient Med/Surg Unit at [facility] in [place], [place]. 10.Crisis plan is in place. SASHA /[id number]
[2020-06-22] MEDS: Calcium Carbonate 500 MG Tab.Chew PO SCH (20:37)
[2020-06-22] MEDS: LORazepam 0.5 MG Tab PO PRN (20:37)
[2020-06-22] MEDS ORDERED: traZODone 50 MG Tab PO ONE (23:27)
[2020-06-23] MEDS ORDERED: Enoxaparin 30 MG/0.3 ML Syringe SUBCUT SCH (09:00)
[2020-06-23] MEDS: Brimonidine 0.2% Ophth Soln 5 ML Bottle EYEBOTH SCH ×2 (09:41→20:40)
[2020-06-23] MEDS: Multivitamins with Minerals/Folic Acid/Lutein/Zeaxanth Tab PO SCH (09:42)
[2020-06-23] MEDS: Sodium Chloride 1 GM Tab PO SCH ×2 (09:42→20:41)
[2020-06-23] MEDS: Allopurinol 100 MG Tab PO SCH (09:42)
[2020-06-23] MEDS: Enoxaparin 40 MG/0.4 ML Syringe SUBCUT SCH (09:42)
[2020-06-23] MEDS: Metoprolol Succinate 25 MG Tab.ER PO SCH (09:43)
[2020-06-23] MEDS: Sertraline 50 MG Tab PO SCH (09:43)
[2020-06-23] MEDS: methylPREDNISolone Sodium Succinate 40 MG/1 ML SDV IVPUSH SCH (09:44)
[2020-06-23] MEDS: Benzonatate 100 MG Cap PO PRN (10:29)
--- NOTE | 2020-06-23 11:31 | PCM.PN ---
- General Info Date of Service: 06/23/20 Admission Dx/Problem (Free Text): COPD exacerbation Subjective Update: In to see Wellde he reports he ambulated better today but remains weak. He continues to have shortness of breath although he remains on his baseline 4 L with good saturations. Continues to have frequent cough. We discussed how this likely worsening of his metastatic cancer. Discussed I would like to discharge him tomorrow pending continued improvement. PT/OT continues to recommend home health services. Functional Status: Reports: Pain Controlled, Tolerating Diet, Ambulating, Urinating, Incentive Spirometry, Other (Acapella ). Denies: New Symptoms - Review of Systems General: Reports: Weakness, Fatigue. Denies: Fever, Malaise, Chills HEENT: Reports: No Symptoms. Denies: Headaches, Rhinitis Pulmonary: Reports: Shortness of Breath, Cough, Sputum, Wheezing. Denies: Pleuritic Chest Pain Cardiovascular: Reports: Dyspnea on Exertion. Denies: Chest Pain, Palpitations, Lightheadedness Gastrointestinal: Reports: No Symptoms. Denies: Abdominal Pain, Constipation, Diarrhea, Nausea, Vomiting Genitourinary: Reports: No Symptoms. Denies: Pain Musculoskeletal: Reports: No Symptoms Skin: Reports: No Symptoms Neurological: Reports: Difficulty Walking, Weakness. Denies: Confusion, Gait Disturbance Psychiatric: Reports: Depression, Anxiety - Patient Data Vitals - Most Recent: Last Vital Signs Temp 97.2 F 06/23/20 07:32 Pulse 81 06/23/20 09:43 Resp 24 H 06/23/20 07:32 BP 127/68 06/23/20 09:43 Pulse Ox 100 06/23/20 03:36 Weight - Most Recent: 148 lb 8 oz I&O - Last 24 Hours: Intake & Output 06/22/20 06/23/20 06/23/20 22:59 06:59 14:59 Intake Total 1720 1200 240 Output Total 200 Balance 1720 1000 240 Lab Results Last 24 Hours: Laboratory Results - last 24 hr 06/23/20 06/23/20 Range/Units 05:50 05:50 WBC 7.30 (4.23-9.07) K/mm3 RBC 3.38 L (4.63-6.08) M/mm3 Hgb 8.4 L (13.7-17.5) gm/dl Hct 28.4 L (40.1-51.0) % MCV 84.0 (79.0-92.2) fl MCH 24.9 L (25.7-32.2) pg MCHC 29.6 L (32.2-35.5) g/dl RDW Std Deviation 45.1 H (35.1-43.9) fL Plt Count 282 (163-337) K/mm3 MPV 9.3 L (9.4-12.3) fl Neut % (Auto) 84.0 H (34.0-67.9) % Lymph % (Auto) 6.2 L (21.8-53.1) % Wetzel % (Auto) 9.5 (5.3-12.2) % Eos % (Auto) 0 L (0.8-7.0) Baso % (Auto) 0.0 L (0.1-1.2) % Neut # (Auto) 6.14 H (1.78-5.38) K/mm3 Lymph # (Auto) 0.45 L (1.32-3.57) K/mm3 Wetzel # (Auto) 0.69 (0.30-0.82) K/mm3 Eos # (Auto) 0.00 L (0.04-0.54) K/mm3 Baso # (Auto) 0.00 L (0.01-0.08) K/mm3 Manual Slide Review Abnormal smear Sodium 136 (136-145) mEq/L Potassium 5.0 (3.5-5.1) mEq/L Chloride 100 (98-107) mEq/L Carbon Dioxide 28 (21-32) mEq/L Anion Gap 13.0 (5-15) BUN 57 H (7-18) mg/dL Creatinine 1.6 H (0.7-1.3) mg/dL Est Cr Clr Drug Dosing 35.08 mL/min Estimated GFR (MDRD) 42 (>60) mL/min BUN/Creatinine Ratio 35.6 H (14-18) Glucose 108 (83-115) mg/dL Calcium 8.1 L (8.5-10.1) mg/dL Magnesium 2.3 (1.8-2.4) mg/dl Kashif Results Last 24 Hours: Microbiology 06/20/20 07:18 Aerobic Blood Culture - Preliminary Blood - Venous NO GROWTH AFTER 3 DAYS Anaerobic Blood Culture - Preliminary NO GROWTH AFTER 3 DAYS 06/20/20 07:35 Aerobic Blood Culture - Preliminary Blood - Venous - Lab Draw NO GROWTH AFTER 3 DAYS Anaerobic Blood Culture - Preliminary NO GROWTH AFTER 3 DAYS Med Orders - Current: Current Medications Acetaminophen (Tylenol) 650 mg PO Q4H PRN PRN Reason: Pain (Mild 1-3)/fever Last Admin: 06/22/20 22:47 Dose: 650 mg Documented by: Albuterol/Ipratropium (Duoneb 3.0-0.5 Mg/3 Ml) 3 ml NEB Q4H PRN PRN Reason: Shortness Of Breath/wheezing Allopurinol (Zyloprim) 50 mg PO DAILY [facility] Last Admin: 06/23/20 09:42 Dose: 50 mg Documented by: Benzonatate (Tessalon Perles) 100 mg PO TID PRN PRN Reason: Cough Last Admin: 06/23/20 10:29 Dose: 100 mg Documented by: Brimonidine Tartrate (Alphagan 0.2% Ophth Soln) 0 ml EYEBOTH BID [facility] Last Admin: 06/23/20 09:41 Dose: 1 drop Documented by: Calcium Carbonate/Glycine (Tums) 500 mg PO BEDTIME [facility] Last Admin: 06/22/20 20:37 Dose: 500 mg Documented by: Enoxaparin Sodium (Lovenox) 40 mg SUBCUT DAILY [facility] Last Admin: 06/23/20 09:42 Dose: 40 mg Documented by: Lorazepam (Ativan) 0.5 mg PO Q6H PRN PRN Reason: Anxiety Last Admin: 06/22/20 20:37 Dose: 0.5 mg Documented by: Methylprednisolone Sodium Succinate (Solu-Medrol) 60 mg IVPUSH DAILY [facility] Last Admin: 06/23/20 09:44 Dose: 60 mg Documented by: Metoprolol Succinate (Toprol Xl) 25 mg PO DAILY [facility] Last Admin: 06/23/20 09:43 Dose: 25 mg Documented by: Ondansetron HCl (Zofran) 4 mg IV Q6H PRN PRN Reason: Nausea/Vomiting Polyethylene Glycol (Miralax) 17 gm PO DAILY PRN PRN Reason: Constipation Last Admin: 06/20/20 11:56 Dose: 17 gm Documented by: Psyllium Husk (Metamucil Sugar Free) 1 pkt PO DAILY PRN PRN Reason: Constipation Senna/Docusate Sodium (Senna Plus) 2 tab PO DAILY [facility] Last Admin: 06/23/20 09:43 Dose: 2 tab Documented by: Sertraline HCl (Zoloft) 50 mg PO DAILY [facility] Last Admin: 06/23/20 09:43 Dose: 50 mg Documented by: Sodium Chloride (Sodium Chloride) 1 gm PO BID [facility] Last Admin: 06/23/20 09:42 Dose: 1 gm Documented by: Vit A/Vit C/Vit E/Selen/Cu/Zn/Lutei (Icaps ) 1 tab PO DAILY [facility] Last Admin: 06/23/20 09:42 Dose: 1 tab Documented by: Discontinued Medications Albuterol/Ipratropium (Duoneb 3.0-0.5 Mg/3 Ml) 3 ml NEB ONETIME ONE Stop: 06/20/20 06:41 Last Admin: 06/20/20 06:52 Dose: 3 ml Documented by: Allopurinol (Zyloprim) 50 mg PO DAILY [facility] Allopurinol (Zyloprim) 50 mg PO DAILY [facility] Last Admin: 06/22/20 10:11 Dose: 50 mg Documented by: Enoxaparin Sodium (Lovenox) 40 mg SUBCUT DAILY [facility] Last Admin: 06/22/20 10:05 Dose: 40 mg Documented by: Furosemide (Lasix) 20 mg PO DAILY [facility] Furosemide (Lasix) 20 mg PO DAILY [facility] Last Admin: 06/21/20 09:06 Dose: 20 mg Documented by: Lactated Ringer's (Ringers, Lactated) 500 mls @ 999 mls/hr IV .BOLUS ONE Stop: 06/20/20 07:10 Last Admin: 06/20/20 07:38 Dose: 999 mls/hr Documented by: Lactated Ringer's (Ringers, Lactated) 500 mls @ 1,000 mls/hr IV .BOLUS ONE Stop: 06/20/20 08:19 Last Admin: 06/20/20 08:14 Dose: Not Given Documented by: Ceftriaxone Sodium 2 gm/ (Sodium Chloride) 100 mls @ 200 mls/hr IV ONETIME ONE Stop: 06/20/20 09:46 Last Admin: 06/20/20 09:34 Dose: 200 mls/hr Documented by: Ceftriaxone Sodium 2 gm/ (Sodium Chloride) 100 mls @ 200 mls/hr IV Q24H [facility] Last Admin: 06/21/20 08:33 Dose: 200 mls/hr Documented by: Lactated Ringer's (Ringers, Lactated) 1,000 mls @ 75 mls/hr IV ASDIRECTED [facility] Stop: 06/21/20 00:49 Last Admin: 06/20/20 11:56 Dose: 75 mls/hr Documented by: Lactated Ringer's (Ringers, Lactated) 1,000 mls @ 100 mls/hr IV ASDIRECTED [facility] Stop: 06/22/20 17:44 Last Admin: 06/22/20 10:49 Dose: 100 mls/hr Documented by: Lorazepam (Ativan) 0.5 mg PO Q6H PRN PRN Reason: Anxiety Lorazepam (Ativan) 0.5 mg PO Q6H PRN PRN Reason: Anxiety Last Admin: 06/22/20 10:02 Dose: 0.5 mg Documented by: Magnesium Oxide (Magnesium Oxide) 400 mg PO ONETIME ONE Stop: 06/20/20 12:32 Last Admin: 06/20/20 14:32 Dose: 400 mg Documented by: Methylprednisolone Sodium Succinate (Solu-Medrol) 125 mg IVPUSH ONETIME ONE Stop: 06/20/20 09:18 Last Admin: 06/20/20 09:32 Dose: 125 mg Documented by: Methylprednisolone Sodium Succinate (Solu-Medrol) 60 mg IVPUSH Q12H [facility] Last Admin: 06/22/20 10:06 Dose: 60 mg Documented by: Metoprolol Succinate (Toprol Xl) 50 mg PO DAILY [facility] Metoprolol Succinate (Toprol Xl) 50 mg PO DAILY [facility] Metoprolol Succinate (Toprol Xl) 25 mg PO DAILY [facility] Last Admin: 06/22/20 10:10 Dose: 25 mg Documented by: Non-Formulary Medication (Aspirin) 325 mg PO BID PRN PRN Reason: Other Non-Formulary Medication (Brimonidine) 1 drop EYEBOTH BID [facility] Non-Formulary Medication (Lorazepam) 0.5 mg PO Q6HR PRN PRN Reason: Anxiety Non-Formulary Medication (Lutein/Minerals/Vit A,C & E) 1 tab PO DAILY [facility] Non-Formulary Medication (Polyethylene Glycol [Polyox [id number]]) 1 dose PO DAILY PRN PRN Reason: Constipation Non-Formulary Medication (Psyllium) 1 dose PO DAILY PRN PRN Reason: Constipation Sertraline HCl (Zoloft) 25 mg PO DAILY [facility] Last Admin: 06/22/20 10:11 Dose: 25 mg Documented by: Sodium Polystyrene Sulfonate (Kayexalate) 15 gm PO ONETIME ONE Stop: 06/21/20 09:31 Last Admin: 06/21/20 11:11 Dose: 15 gm Documented by: Trazodone HCl (Trazodone) 50 mg PO ONETIME ONE Stop: 06/22/20 23:28 Last Admin: 06/22/20 23:41 Dose: 50 mg Documented by: - Exam Quality Assessment: Supplemental Oxygen (4L - Baseline ), DVT Prophylaxis General: Alert, Oriented, Cooperative, No Acute Distress HEENT: Pupils Equal, Pupils Reactive, Mucous Membr. Moist/[place] Neck: Supple, Trachea Midline Lungs: Normal Respiratory Effort, Decreased Breath Sounds, Rhonchi, Wheezing Cardiovascular: Regular Rate, Regular Rhythm GI/Abdominal Exam: Normal Bowel Sounds, Soft, Non-Tender, No Distention (Male) Exam: Deferred Back Exam: Normal Inspection, Full Range of Motion Extremities: Normal Inspection, Normal Range of Motion, Non-Tender, No Pedal Edema, Normal Capillary Refill Skin: Warm, Dry, Intact Neurological: No New Focal Deficit Psy/Mental Status: Alert, Anxious, Depressed Sepsis Event Note - Evaluation Sepsis Screening Result: No Definite Risk - Focused Exam Vital Signs: Vital Signs Temp Pulse Resp BP Pulse Ox 06/23/20 09:43 81 127/68 06/23/20 07:32 97.2 F 24 H 127/68 06/23/20 03:36 97.2 F 81 123/67 100 - Problem List & Annotations (1) COPD exacerbation SNOMED Code(s): 519365084 Code(s): J44.1 - CHRONIC OBSTRUCTIVE PULMONARY DISEASE W (ACUTE) EXACERBATION Status: Acute Priority: High Current Visit: Yes (2) History of right nephrectomy SNOMED Code(s): 36249931858741 Code(s): Z90.5 - ACQUIRED ABSENCE OF KIDNEY Status: Chronic Priority: Medium Current Visit: Yes (3) Metastatic cancer to lung SNOMED Code(s): 26126091 Code(s): C78.00 - SECONDARY MALIGNANT NEOPLASM OF UNSPECIFIED LUNG Status: Chronic Priority: Medium Current Visit: Yes Qualifiers: Laterality: unspecified laterality Qualified Code(s): C78.00 - Secondary malignant neoplasm of unspecified lung (4) Dysphagia, unspecified SNOMED Code(s): 10461292, 517135326 Code(s): R13.10 - DYSPHAGIA, UNSPECIFIED Status: Chronic Priority: Low Current Visit: No Qualifiers: Dysphagia type: unspecified Qualified Code(s): R13.10 - Dysphagia, unspecified (5) Weight loss SNOMED Code(s): 11641342, 520692525 Code(s): R63.4 - ABNORMAL WEIGHT LOSS Status: Chronic Priority: Low Current Visit: No Annotation/Comment:: (6) Asthma SNOMED Code(s): 093540784 Code(s): J45.909 - UNSPECIFIED ASTHMA, UNCOMPLICATED Status: Chronic Priority: Medium Current Visit: No Qualifiers: Asthma severity: unspecified severity Asthma persistence: unspecified Asthma complication type: unspecified Qualified Code(s): J45.909 - Unspecified asthma, uncomplicated (7) COPD (chronic obstructive pulmonary disease) SNOMED Code(s): 91942455 Code(s): J44.9 - CHRONIC OBSTRUCTIVE PULMONARY DISEASE, UNSPECIFIED Status: Chronic Priority: Medium Current Visit: No Qualifiers: COPD type: unspecified COPD Qualified Code(s): J44.9 - Chronic obstructive pulmonary disease, unspecified (8) 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 SNOMED Code(s): 413724006, 882367957 Code(s): C18.9 - MALIGNANT NEOPLASM OF COLON, UNSPECIFIED; C78.7 - SECONDARY MALIG NEOPLASM OF LIVER AND INTRAHEPATIC BILE DUCT Status: Chronic Priority: Medium Current Visit: No (9) Chronic dyspnea SNOMED Code(s): 716812513 Code(s): R06.00 - DYSPNEA, UNSPECIFIED Status: Chronic Priority: Medium Current Visit: No (10) Dupuytren contracture SNOMED Code(s): 521859901 Code(s): M72.0 - PALMAR FASCIAL FIBROMATOSIS [DUPUYTREN] Status: Chronic Priority: Low Current Visit: No (11) GERD (gastroesophageal reflux disease) SNOMED Code(s): 463399236 Code(s): K21.9 - GASTRO-ESOPHAGEAL REFLUX DISEASE WITHOUT ESOPHAGITIS Status: Chronic Priority: Medium Current Visit: No Qualifiers: Esophagitis presence: with esophagitis (12) Glaucoma SNOMED Code(s): 80763681 Code(s): H40.9 - UNSPECIFIED GLAUCOMA Status: Chronic Priority: Low Current Visit: No Qualifiers: Glaucoma type: unspecified Laterality: unspecified laterality Qualified Code(s): H40.9 - Unspecified glaucoma (13) Gouty arthritis SNOMED Code(s): 25212316 Code(s): M10.9 - GOUT, UNSPECIFIED Status: Chronic Priority: Low Current Visit: No (14) History of TIA (transient ischemic attack) SNOMED Code(s): 069886435 Code(s): Z86.73 - PRSNL HX OF TIA (TIA), AND CEREB INFRC W/O RESID DEFICITS Status: Chronic Priority: Low Current Visit: No (15) History of biliary stent insertion SNOMED Code(s): 199525917 Code(s): Z98.890 - OTHER SPECIFIED POSTPROCEDURAL STATES Status: Chronic Priority: Low Current Visit: No (16) Hypertension SNOMED Code(s): 82039553 Code(s): I10 - ESSENTIAL (PRIMARY) HYPERTENSION Status: Chronic Priority: Medium Current Visit: No Qualifiers: Hypertension type: essential hypertension Qualified Code(s): I10 - Essential (primary) hypertension (17) Hyponatremia SNOMED Code(s): 82328235 Code(s): E87.1 - HYPO-OSMOLALITY AND HYPONATREMIA Status: Chronic Priority: Medium Current Visit: No (18) Macular degeneration SNOMED Code(s): 861852117 Code(s): H35.30 - UNSPECIFIED MACULAR DEGENERATION Status: Chronic Priority: Low Current Visit: No Qualifiers: Macular degeneration type: unspecified type Eye laterality: unspecified Qualified Code(s): H35.30 - Unspecified macular degeneration (19) Metastases to the liver Status: Chronic Priority: Medium Current Visit: No (20) Neoplasm of colon, 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 SNOMED Code(s): 30183706, 059814304 Code(s): D01.0 - CARCINOMA IN SITU OF COLON Status: Chronic Priority: Medium Current Visit: No (21) Port-A-Cath in place SNOMED Code(s): 266802179 Code(s): Z95.828 - PRESENCE OF OTHER VASCULAR IMPLANTS AND GRAFTS Status: Chronic Priority: Medium Current Visit: No (22) Psoriasis SNOMED Code(s): 6576275 Code(s): L40.9 - PSORIASIS, UNSPECIFIED Status: Chronic Priority: Low Current Visit: No (23) CKD (chronic kidney disease) stage 3, GFR 30-59 ml/min SNOMED Code(s): 553865228 Code(s): N18.3 - CHRONIC KIDNEY DISEASE, STAGE 3 (MODERATE) * DO NOT USE * Status: Chronic Priority: Medium Current Visit: No Qualifiers: Chronic kidney disease stage 3 subtype: stage 3a (GFR 45-59) Qualified Code(s): N18.31 - Chronic kidney disease, stage 3a (24) Constipation SNOMED Code(s): 45583625 Code(s): K59.00 - CONSTIPATION, UNSPECIFIED Status: Chronic Priority: Medium Current Visit: Yes Qualifiers: Constipation type: unspecified constipation type Qualified Code(s): K59.00 - Constipation, unspecified (25) Hypotension SNOMED Code(s): 65326007 Code(s): I95.9 - HYPOTENSION, UNSPECIFIED Status: Acute Priority: High Current Visit: Yes Qualifiers: Hypotension type: unspecified hypotension type Qualified Code(s): I95.9 - Hypotension, unspecified (26) Hypoalbuminemia SNOMED Code(s): 155819977 Code(s): E88.09 - OTH DISORDERS OF PLASMA-PROTEIN METABOLISM, NEC Status: Acute Priority: High Current Visit: Yes (27) Former smoker SNOMED Code(s): 9233981 Code(s): Z87.891 - PERSONAL HISTORY OF NICOTINE DEPENDENCE Status: Chronic Priority: Medium Current Visit: No (28) Hyperkalemia SNOMED Code(s): 23944290 Code(s): E87.5 - HYPERKALEMIA Status: Resolved Priority: High Current Visit: Yes - Problem List Review Problem List Initiated/Reviewed/Updated: Yes - My Orders Last 24 Hours: My Active Orders 06/22/20 16:00 LORazepam [Ativan] 0.5 mg PO Q6H PRN 06/23/20 09:00 Enoxaparin [Lovenox] 40 mg SUBCUT DAILY Metoprolol Succinate [Toprol XL] 25 mg PO DAILY allopurinoL [Zyloprim] 50 mg PO DAILY methylPREDNISolone Sod Succ [Solu-MEDROL] 60 mg IVPUSH DAILY 06/24/20 05:11 BASIC METABOLIC PANEL,BMP [CHEM] AM CBC WITH AUTO DIFF [HEME] AM MAGNESIUM [CHEM] AM - Assessment Assessment:: Assessment - day of admission - 06/20/20 * 79 yo male who presents to our ED via [facility] with shortness of breath * Patient reports worsening SOB since last night and productive cough * History of metastatic lung, liver, and colon cancer, COPD, asthma, dyspagia, CKD, Rt. Nephrectomy, gerd, HTN, glaucoma, macular degeneration, gout, TIA, depressoin, Iron deficiency, Psoriasis, hyponatremia * Chronically on 4L o2 * Stopped chemotherapy about a year ago as he reports he was feeling worse than the cancer itself * Aware he will ultimately from his cancer * Reports chronic cough and sputum production but this has not gotten any worse * 12-lead EKG in ED shows sinus tachycardia with no signs of ischemia * CXR in ED shows multiple areas of lung cancer but no acute infiltrates * Labs in ED: * WBC 10.19 (likely stress and not infectious) * Hgb 11.0 * Neutrophils 8.39 * INR 1.10 * Sodium 135 (chronic) * Potassium 5.0 * Carbon dioxide 26 * Anion gap 14.0 * BUN 32, Creatinine 1.4, GFR 49 (appears slightly worse than baseline) * Glucose 144 * AST 36, ALT 36, Alk Phos 127 * Troponin <0.017 * Protein 6.1 * Albumin 2.0 * Lactic acid 1.5 * UA negative but 1+ protein and moderate amorphous sediment noted * Negative SARS-CoV-2 RNA * Blood cultures pending * Given two 500ml Fluid boluses, started on 2gm Rocephin and 125mg solumedrol; Given DuoNeb treatment * Sepsis screen: * Unknown bacterial infection - receiving empiric Rocephin, tachycardia and tachypnea. Hypotension after admission * Meets criteria, although it is felt this is 2/2 his chronic progressing lung cancer and not likely sepsis * Patient has had variable blood pressures and tachycardia on prior visits * Blood cultures obtained prior to admission in ED * Will continue to monitor vital signs and treat accordingly * Admitted observation status for management of COPD exacerbation, hypoxia 06/21/20 * Reports continued SOB * Remains on 4L O2 (baseline) * Labs today: * WBC 8.58 * Hemoglobin 9.4 (due to IV fluids) * Platelets 261 * Neutrophils 7.85 * Sodium 136 * Potassium 5.5 * Anion gap 14.5 * BUN 42, Creatinine 1.6, GFR 42 * Magnesium 2.0 * Blood cultures negative * Discontinue Rocephin * Will remain admitted today with likely discharge tomorrow 06/22/20 * Continued SOB although reports better than yesterday * Still feels week * Creatinine increased again today - will start IV fluids * Blood cultures remain negative * Decrease steroids to 60mg daily * Upgraded to inpatient due to need for continued treatment * Labs today: * WBC 9.65 * Hemoglobin 8.7 * Platelets 286,000 * Neutrophils 8.73 * Sodium 135 * Potassium 5.2 * BUN 53, Creatinine 1.8, GFR 36 * Glucose 147 * Calcium 8.2 * Visited with Dr. Sabillon. Shayla Sutton * Social work in to provide information about hospice care and answer questions. Patient does not want formal consult * Review labs in AM and adjust plan then 06/23/20 * Reports improvement in ambulation but continued weakness and SOB * Discussed how this is likely from his metastatic cancer and may not get much better * Renal function improved today * Labs today: * WBC 7.30 * hemoglobin 8.4 * platelet 282,000 * neutrophils 6.14 * sodium 136 * potassium 5.0 * BUN 57 creatinine 1.6 GFR 42 * magnesium 2.3 * Continue current treatment plan. Hoepful for discharge tomorrow - 06/24/20 - Plan Plan:: COPD exacerbation Metastatic cancer to lung Asthma COPD (chronic obstructive pulmonary disease) Chronic dyspnea Port-A-Cath in place Hypotension Former smoker * Access port * Steroids as ordered * IS as directed * O2 as needed - baseline 4L * PRN duonebs * IV fluids as ordered * RT consultation * Blood cultures remain negative * PT/OT * Gabe Kaur PRN for cough History of right nephrectomy CKD (chronic kidney disease) stage 3, GFR 30-59 ml/min * Avoid nephrotoxic meds if able * Monitor labs * IV fluids as ordered Dysphagia, unspecified Weight loss 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 Metastases to the liver Neoplasm of colon, 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 Sabillon - recommends increasing Zoloft * Continue PRN Ativan as ordered Code status: DNR/DNI PCP: Dr. Caldera DVT Prophylaxis: Lovenox Social: Patient resides in a home with his . He was discharged during his last visit (05/31/20-06/03/20) on home health. Disposition: Patient admitted to [facility] observation status for management of COPD exacerbation with hypoxia. Upgraded to inpatient on 06/22/20 due to worsening renal function. Hoepful for discharge on 06/24/20 pending continued improvement. Prognosis: Overall poor prognosis given neoplasm metastasis, weight loss.
[2020-06-23] MEDS ORDERED: guaiFENesin 600 MG Tab.ER PO ONE (12:00)
[2020-06-23] MEDS: LORazepam 0.5 MG Tab PO PRN (18:14)
[2020-06-23] MEDS: guaiFENesin 600 MG Tab.ER PO SCH (20:39)
[2020-06-23] MEDS: Calcium Carbonate 500 MG Tab.Chew PO SCH (20:40)
[2020-06-24] MEDS: Metoprolol Succinate 25 MG Tab.ER PO SCH (08:54)
[2020-06-24] MEDS: Allopurinol 100 MG Tab PO SCH (08:54)
[2020-06-24] MEDS: Multivitamins with Minerals/Folic Acid/Lutein/Zeaxanth Tab PO SCH (08:54)
[2020-06-24] MEDS: guaiFENesin 600 MG Tab.ER PO SCH (08:55)
[2020-06-24] MEDS: methylPREDNISolone Sodium Succinate 40 MG/1 ML SDV IVPUSH SCH (08:55)
[2020-06-24] MEDS: Enoxaparin 40 MG/0.4 ML Syringe SUBCUT SCH (08:55)
[2020-06-24] MEDS: Sertraline 50 MG Tab PO SCH (08:55)
[2020-06-24 08:58] VITALS: BP 117/61; PULSE 100
[2020-06-24] MEDS: Brimonidine 0.2% Ophth Soln 5 ML Bottle EYEBOTH SCH (09:02)
[2020-06-24] MEDS: Sodium Chloride 1 GM Tab PO SCH (09:20)
[2020-06-24] MEDS: LORazepam 0.5 MG Tab PO PRN (11:25)
--- NOTE | 2020-06-24 13:06 | PCM.DCSUM1 ---
Discharge Summary - Hospital Course HPI Initial Comments: This is an 79 year old male who is well known to this service, who presents to ED on 06/20/2020 with shortness of breath via [facility]. Patient has a longstanding history of chronic COPD exacerbations along with lung cancer metastasized to the liver and colon. He has been off chemo for the last several months but is reportedly still receiving radiation. He is aware that he will ultimately succumbed to cancer. Patient reports worsening shortness of breath last night and significant cough but states this has resolved. He has no appetite and has been losing weight. He notes tachycardia but denies any chest pain, shortness of breath, fever, chills, nausea, vomiting. He reports a chronic baseline cough with sputum and notes that this is not changed much. Chronically on 4 L of oxygen via nasal cannula. In the ED temp was 97.4. Pulse 125. Respirations 31. Blood pressure 100/76. Pulse ox 94%. Labs were obtained: BC is elevated at 10.19. Hemoglobin 11.0. Platelets are 301,000. Neutrophils are elevated at 82.3%. INR is 1.10. Sodium is low at 135 and the patient is noted to be chronically hyponatremia. Potassium 5.0. Chloride 100. Carbon dioxide 26. Anion gap 14. BUN is 32. Creatinine 1.4. GFR is 49. Glucose 144. Calcium 9.3. Bilirubin 0.4. AST is 36, ALT 26, alkaline phosphatase 127. Troponin less than 0.017. Protein is 6.1. Albumin 2.0. Lactic acid is 1.5. UA is obtained and is negative however 1+ protein and moderate amorphous sediment are noted. Heart score of 2 RNA is negative. He is given a DuoNeb and 2 500 mL saline boluses. He is also started on 2 g of IV Rocephin given his multiple antibiotic allergies and 125 mg IV push Solu-Medrol. Twelve-lead EKG is obtained showing a sinus tachycardia with no acute changes. Chest x-ray shows multiple areas of prior neoplasm however no infiltrates are noted. He carries a history of glaucoma, macular degeneration, hypertension, COPD, asthma, bowel obstruction, GERD, PEG tube placement, chronic renal insufficiency, nephrectomy, BASSAM, CKD stage III, arthritis, gout, TIA, depression, iron deficiency anemia, colon, liver, and lung cancer, psoriasis. He is a former smoker. His PCP is Dr. Caldera. He is a DNR/DNI. He is subsequently admitted to the medical floor for management of his COPD exacerbation and shortness of breath. Last BM was 3 days ago per patient. Late entry for clarity on sepsis risk: It is not believed that the patient is septic at this time. Patient has a longstanding history of worsening lung cancer with mets to his liver and colon. Patient also has baseline anxiety and depression. Patient has presented in the past for COPD exacerbations with similar symptoms. This leads to tachycardia and tachypnea. Patient had 1 hypotensive blood pressure on admission, however patient does have a history of baseline lower blood pressures. It is believed patient's leukocytosis on admission is due to stress reaction and not an active infection. Again, this is not sepsis related. Diagnosis: Stroke: No - Discharge Data Discharge Date: 06/24/20 (Admit date: 06/20/20) Discharge Disposition: Home, W Home Health Agency 06 Condition: Fair - Referral to Home Health Date of Face to Face Encounter: 06/24/20 Reason for Homebound Status: Resuming prior home healthcare Primary Care Physician: Brendan Caldera MD Skilled Need: Resuming homehealth from prior - Discharge Diagnosis/Problem(s) (1) COPD exacerbation SNOMED Code(s): 347360490 ICD Code: J44.1 - CHRONIC OBSTRUCTIVE PULMONARY DISEASE W (ACUTE) EXACERBATION Status: Acute Priority: High (2) History of right nephrectomy SNOMED Code(s): 31901517532456 ICD Code: Z90.5 - ACQUIRED ABSENCE OF KIDNEY Status: Chronic Priority: Medium (3) Metastatic cancer to lung SNOMED Code(s): 12892123 ICD Code: C78.00 - SECONDARY MALIGNANT NEOPLASM OF UNSPECIFIED LUNG Status: Chronic Priority: Medium Qualifiers: Laterality: unspecified laterality Qualified Code(s): C78.00 - Secondary malignant neoplasm of unspecified lung (4) Dysphagia, unspecified SNOMED Code(s): 65744949, 922045710 ICD Code: R13.10 - DYSPHAGIA, UNSPECIFIED Status: Chronic Priority: Low Qualifiers: Dysphagia type: unspecified Qualified Code(s): R13.10 - Dysphagia, unspecified (5) Weight loss SNOMED Code(s): 49277218, 005057790 ICD Code: R63.4 - ABNORMAL WEIGHT LOSS Status: Chronic Priority: Low Problem Details: (6) Asthma SNOMED Code(s): 996611521 ICD Code: J45.909 - UNSPECIFIED ASTHMA, UNCOMPLICATED Status: Chronic Priority: Medium Qualifiers: Asthma severity: unspecified severity Asthma persistence: unspecified Asthma complication type: unspecified Qualified Code(s): J45.909 - Unspecified asthma, uncomplicated (7) COPD (chronic obstructive pulmonary disease) SNOMED Code(s): 20420408 ICD Code: J44.9 - CHRONIC OBSTRUCTIVE PULMONARY DISEASE, UNSPECIFIED Status: Chronic Priority: Medium Qualifiers: COPD type: unspecified COPD Qualified Code(s): J44.9 - Chronic obstructive pulmonary disease, unspecified (8) 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 SNOMED Code(s): 558049322, 874673370 ICD Code: C18.9 - MALIGNANT NEOPLASM OF COLON, UNSPECIFIED; C78.7 - SECONDARY MALIG NEOPLASM OF LIVER AND INTRAHEPATIC BILE DUCT Status: Chronic Priority: Medium (9) Chronic dyspnea SNOMED Code(s): 414276230 ICD Code: R06.00 - DYSPNEA, UNSPECIFIED Status: Chronic Priority: Medium (10) Dupuytren contracture SNOMED Code(s): 623886688 ICD Code: M72.0 - PALMAR FASCIAL FIBROMATOSIS [DUPUYTREN] Status: Chronic Priority: Low (11) GERD (gastroesophageal reflux disease) SNOMED Code(s): 826519801 ICD Code: K21.9 - GASTRO-ESOPHAGEAL REFLUX DISEASE WITHOUT ESOPHAGITIS Status: Chronic Priority: Medium Qualifiers: Esophagitis presence: with esophagitis (12) Glaucoma SNOMED Code(s): 76461105 ICD Code: H40.9 - UNSPECIFIED GLAUCOMA Status: Chronic Priority: Low Qualifiers: Glaucoma type: unspecified Laterality: unspecified laterality Qualified Code(s): H40.9 - Unspecified glaucoma (13) Gouty arthritis SNOMED Code(s): 15399959 ICD Code: M10.9 - GOUT, UNSPECIFIED Status: Chronic Priority: Low (14) History of TIA (transient ischemic attack) SNOMED Code(s): 421679162 ICD Code: Z86.73 - PRSNL HX OF TIA (TIA), AND CEREB INFRC W/O RESID DEFICITS Status: Chronic Priority: Low (15) History of biliary stent insertion SNOMED Code(s): 101632046 ICD Code: Z98.890 - OTHER SPECIFIED POSTPROCEDURAL STATES Status: Chronic Priority: Low (16) Hypertension SNOMED Code(s): 64799843 ICD Code: I10 - ESSENTIAL (PRIMARY) HYPERTENSION Status: Chronic Priority: Medium Qualifiers: Hypertension type: essential hypertension Qualified Code(s): I10 - Essential (primary) hypertension (17) Hyponatremia SNOMED Code(s): 27986431 ICD Code: E87.1 - HYPO-OSMOLALITY AND HYPONATREMIA Status: Chronic Priority: Medium (18) Macular degeneration SNOMED Code(s): 999248327 ICD Code: H35.30 - UNSPECIFIED MACULAR DEGENERATION Status: Chronic Priority: Low Qualifiers: Macular degeneration type: unspecified type Eye laterality: unspecified Qualified Code(s): H35.30 - Unspecified macular degeneration (19) Metastases to the liver Status: Chronic Priority: Medium (20) Neoplasm of colon, 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 SNOMED Code(s): 88120770, 139399459 ICD Code: D01.0 - CARCINOMA IN SITU OF COLON Status: Chronic Priority: Medium (21) Port-A-Cath in place SNOMED Code(s): 267868214 ICD Code: Z95.828 - PRESENCE OF OTHER VASCULAR IMPLANTS AND GRAFTS Status: Chronic Priority: Medium (22) Psoriasis SNOMED Code(s): 7363954 ICD Code: L40.9 - PSORIASIS, UNSPECIFIED Status: Chronic Priority: Low (23) CKD (chronic kidney disease) stage 3, GFR 30-59 ml/min SNOMED Code(s): 170250304 ICD Code: N18.3 - CHRONIC KIDNEY DISEASE, STAGE 3 (MODERATE) * DO NOT USE * Status: Chronic Priority: Medium Qualifiers: Chronic kidney disease stage 3 subtype: stage 3a (GFR 45-59) Qualified Code(s): N18.31 - Chronic kidney disease, stage 3a (24) Constipation SNOMED Code(s): 25726757 ICD Code: K59.00 - CONSTIPATION, UNSPECIFIED Status: Chronic Priority: Medium Qualifiers: Constipation type: unspecified constipation type Qualified Code(s): K59.00 - Constipation, unspecified (25) Hypotension SNOMED Code(s): 00740643 ICD Code: I95.9 - HYPOTENSION, UNSPECIFIED Status: Acute Priority: High Qualifiers: Hypotension type: unspecified hypotension type Qualified Code(s): I95.9 - Hypotension, unspecified (26) Hypoalbuminemia SNOMED Code(s): 107446144 ICD Code: E88.09 - OTH DISORDERS OF PLASMA-PROTEIN METABOLISM, NEC Status: Acute Priority: High (27) Former smoker SNOMED Code(s): 6744242 ICD Code: Z87.891 - PERSONAL HISTORY OF NICOTINE DEPENDENCE Status: Chronic Priority: Medium (28) Hyperkalemia SNOMED Code(s): 43935260 ICD Code: E87.5 - HYPERKALEMIA Status: Chronic Priority: High - Patient Summary/Data Consults: Consultations 06/20/20 09:41 Consult to Case Management/Life Teacher [CONS] Routine OT Evaluation and Treatment [CONS] Routine PT Evaluation and Treatment [CONS] Routine Respiratory Care Assess and Treatment [CONS] Routine 06/20/20 11:43 Consult to Paper[employer]anger Contractor [CONS] Routine 06/21/20 16:53 Consult to Physician [CONS] Routine Labs Pending at D/C: None Recommended Follow-up Testing/Procedures: Follow-up with PCP within 7-10 days of discharge, sooner if needed. -Recommend re-check CBC, CMP, and magnesium at that time. Recommend hospice consultation after discharge. Hospital Course: Qi is a 79-year-old male who is well-known to our service due to multiple visits who presents to ED on 06/20/2020 via [facility] with shortness of breath. Patient does have a history of metastatic lung liver and colon cancer along with COPD and asthma. He stopped chemotherapy and radiation treatment quite a while ago as he felt that the symptoms of treatment were worse than the symptoms of his cancer. He is chronically on 4 L of oxygen via nasal cannula. He is noted to be short of breath and somewhat dry in the emergency room. He has multiple antibiotic allergies including azithromycin so he was started on Rocephin 2 g. He was also given IV fluids and started on 125 mg Solu-Medrol. Initially there was some concern that the patient may be septic but ultimately it was decided that the patient likely does not have a bacterial infection as he has minimal white count and is on steroids. He is oftentimes tachycardic and tachypneic as he has a baseline anxiety disorder and depression. He did have a single hypotensive episode on admission although this did resolve. He was given IV fluids. He was initially admitted observation status however it became apparent that his symptoms were not improving. He was then increased to inpatient status. It is felt that this is likely less of a COPD exacerbation a nd more of worsening of his chronic cancer symptoms. Antibiotics were stopped as there is no indication. His IV push steroids were decreased. He was started on Mucinex and given a suction catheter as he was having significant oral secretions. Blood cultures were obtained and were negative. He did see Dr. Sabillon, psychiatry, as he reported feeling worsening anxiety and depression. His Zoloft was increased from 25 mg to 50 mg daily and his home Ativan as needed order was continued. There was some [id number] about whether or not the patient would be willing to look into hospice and ultimately he was provided information on this. His was at bedside and did note that she is having difficulty taking care of the patient and they are having some troubles financially. He did see our patient advocate to look into signing up for Medicaid. We also discussed SNF versus [facility] placement and ultimately the patient decided that he wanted to discharge back home and not explore these things further. We discussed discharge medications and the patient stated he did not want steroids on discharge as he feels that they have made him feel worse. We discussed the plan to send steroids and he could pick them up over the weekend if he felt he needed them. He ultimately refused this plan. His blood pressure and heart rate were well controlled here and his metoprolol was cut in half. H e will be discharged on 3 times daily Mucinex as needed and 3 times daily as needed Tessalon Perles. His renal function did slightly decrease and he was given IV fluids the day prior to discharge. Throughout his stay multiple family meetings were held between the patient, his , and the patient's son about his poor prognosis and likely continued worsening of symptoms. Multiple attempts were made to encourage patient to sign up for hospice as it is felt he is rapidly worsening with his metastatic condition. Patient admitted that he does not want to continue to bounce in and out of the hospital. Multiple home and community-based service options were presented to the patient and his for them to explore further. Ultimately it is felt that we have nothing further to offer the patient and that his symptoms are worsening of his metastatic disease. He was sent in order for home portable suction for assistance with secretions as he felt like this is helped him in while here. All home medications were continued with the exception of metoprolol which was decreased as mentioned prior. Prescription was sent for Tessalon Perles and Mucinex as noted prior. Prescription was also sent for increase Zoloft as recommended by Dr. Sabillon. Patient had been receiving home health care at home and this will resume on discharge. Recommend patient follow-up with PCP within 7 to 10 days of discharge or sooner if needed. Recommend patient explore hospice further. Recommend PCP repeat CBC, CMP, and magnesium at that visit. Patient was advised to return the emergency room or contact his primary care provider should symptoms return or worsen. - Patient Instructions Diet: Usual Diet as Tolerated Activity: As Tolerated Driving: Do Not Drive Showering/Bathing: May Shower Notify Provider of: Fever, Increased Pain, Nausea and/or Vomiting Other/Special Instructions: Follow-up with primary care provider within 7-10 days of discharge, sooner if needed. Continue home medications as directed. Consider hospice consultation after discharge. Your metoprolol was decreased on discharge. Be sure to take the new dosing. Resume home healthcare after discharge. Continue to wear your home oxygen at 4L as before. You were prescribed a steroid taper on discharge. Take this as directed. Should symptoms return or worsen contact primary care provider or return to the Emergency Department. - Discharge Plan *PRESCRIPTION DRUG MONITORING PROGRAM REVIEWED*: No *COPY OF PRESCRIPTION DRUG MONITORING REPORT IN PATIENT HEATHER: No Prescriptions/Med Rec: guaiFENesin [Mucinex] 600 mg PO TID PRN #30 tab.er.12h PRN Reason: Excessive mucous Benzonatate [Tessalon Perle] 100 mg PO TID PRN #40 capsule PRN Reason: Cough Metoprolol Succinate [Toprol XL] 25 mg PO DAILY #20 tab.er Sertraline [Zoloft] 50 mg PO DAILY #20 tablet Home Medications: Home Meds Lutein/Minerals/Vit A,C & E [I-Jil] 1 tab PO DAILY 02/25/19 [History] Albuterol Sulfate [Proair Hfa] 2 puff INH Q4HR PRN 12/16/19 [History] Aspirin 325 mg PO BID PRN 12/16/19 [History] Brimonidine [Alphagan P 0.15% Ophth Soln] 1 drop EYEBOTH BID 12/16/19 [History] Furosemide [Lasix] 20 mg PO DAILY 12/16/19 [History] Ondansetron [Zofran] 4 mg PO TID PRN 12/16/19 [History] Sodium Chloride 1 gm PO BID #40 tablet 01/14/20 [Rx] Calcium Carbonate [Tums] 500 mg PO BEDTIME 03/15/20 [History] Albuterol [Proventil] 1 inh NEB Q4HR PRN 05/31/20 [History] Allopurinol [Zyloprim] 50 mg PO DAILY 05/31/20 [History] LORazepam [Ativan] 0.5 mg PO Q6HR PRN 05/31/20 [History] Polyethylene Glycol [Polyox Wsr-301] 1 dose PO DAILY 05/31/20 [History] Psyllium [Metamucil] 1 dose PO DAILY PRN 05/31/20 [History] Sennosides/Docusate Sodium [Senna-Docusate Sodium Tablet] 1 - 2 tab PO DAILY 05/31/20 [History] Benzonatate [Tessalon Perle] 100 mg PO TID PRN #40 capsule 06/24/20 [Rx] Metoprolol Succinate [Toprol XL] 25 mg PO DAILY #20 tab.er 06/24/20 [Rx] Sertraline [Zoloft] 50 mg PO DAILY #20 tablet 06/24/20 [Rx] guaiFENesin [Mucinex] 600 mg PO TID PRN #30 tab.er.12h 06/24/20 [Rx] Oxygen Therapy Mode: Nasal Cannula Oxygen Flow Rate (L/min): 4 Patient Handouts: Chronic Obstructive Pulmonary Disease, Sepsis, Diagnosis, Adult Referrals: Brendan Caldera MD [Primary Care Provider] - 06/29/20 12:20 pm (Hospital follow-up appointment.) Lorenzo Sabillon MD [Physician] - 08/02/20 8:45 am (To follow up with outpatient psychiatrist after hospital discharge. Come to the [facility] at [address] [place] [address] for your appoinment. Bring your insurance cards.) - Discharge Summary/Plan Comment DC Time >30 min.: Yes (60 minute ) - General Info Date of Service: 06/24/20 Admission Dx/Problem (Free Text: COPD exacerbation Functional Status: Reports: Pain Controlled, Tolerating Diet, Ambulating, Urinating, Incentive Spirometry, Other (Acapella ). Denies: New Symptoms - Review of Systems General: Reports: Weakness, Fatigue, Malaise. Denies: Fever, Chills HEENT: Denies: Headaches, Sore Throat Pulmonary: Reports: Shortness of Breath, Cough, Sputum, Wheezing. Denies: Pleuritic Chest Pain Cardiovascular: Reports: Dyspnea on Exertion. Denies: Chest Pain, Palpitations, Lightheadedness Gastrointestinal: Denies: Abdominal Pain, Constipation, Diarrhea, Nausea, Vomiting Genitourinary: Denies: Pain Skin: Denies: Cyanosis Neurological: Reports: Difficulty Walking, Weakness, Gait Disturbance. Denies: Confusion, Numbness, Tingling - Patient Data Vitals - Most Recent: Last Vital Signs Temp 97.5 F 06/24/20 07:24 Pulse 100 06/24/20 08:54 Resp 18 06/24/20 07:24 BP 117/61 06/24/20 08:54 Pulse Ox 100 06/24/20 07:24 Weight - Most Recent: 148 lb 9.6 oz I&O - Last 24 hours: Intake & Output 06/23/20 06/24/20 06/24/20 22:59 06:59 14:59 Intake Total 1240 400 Balance 1240 400 Lab Results - Last 24 hrs: Laboratory Results - last 24 hr 06/24/20 06/24/20 Range/Units 05:45 05:45 WBC 7.73 (4.23-9.07) K/mm3 RBC 3.66 L (4.63-6.08) M/mm3 Hgb 9.4 L (13.7-17.5) gm/dl Hct 30.7 L (40.1-51.0) % MCV 83.9 (79.0-92.2) fl MCH 25.7 (25.7-32.2) pg MCHC 30.6 L (32.2-35.5) g/dl RDW Std Deviation 44.9 H (35.1-43.9) fL Plt Count 336 (163-337) K/mm3 MPV 9.1 L (9.4-12.3) fl Neut % (Auto) 81.4 H (34.0-67.9) % Lymph % (Auto) 8.4 L (21.8-53.1) % [place] % (Auto) 9.7 (5.3-12.2) % Eos % (Auto) 0.1 L (0.8-7.0) Baso % (Auto) 0.0 L (0.1-1.2) % Neut # (Auto) 6.29 H (1.78-5.38) K/mm3 Lymph # (Auto) 0.65 L (1.32-3.57) K/mm3 [place] # (Auto) 0.75 (0.30-0.82) K/mm3 Eos # (Auto) 0.01 L (0.04-0.54) K/mm3 Baso # (Auto) 0.00 L (0.01-0.08) K/mm3 Manual Slide Review Abnormal smear Sodium 135 L (136-145) mEq/L Potassium 5.2 H (3.5-5.1) mEq/L Chloride 100 (98-107) mEq/L Carbon Dioxide 31 (21-32) mEq/L Anion Gap 9.2 (5-15) BUN 50 H (7-18) mg/dL Creatinine 1.3 (0.7-1.3) mg/dL Est Cr Clr Drug Dosing 43.21 mL/min Estimated GFR (MDRD) 53 (>60) mL/min BUN/Creatinine Ratio 38.5 H (14-18) Glucose 77 L (83-115) mg/dL Calcium 8.6 (8.5-10.1) mg/dL Magnesium 2.5 H (1.8-2.4) mg/dl TINO Results - Last 24 hrs: Microbiology 06/20/20 07:18 Aerobic Blood Culture - Preliminary Blood - Venous NO GROWTH AFTER 4 DAYS Anaerobic Blood Culture - Preliminary NO GROWTH AFTER 4 DAYS 06/20/20 07:35 Aerobic Blood Culture - Preliminary Blood - Venous - Lab Draw NO GROWTH AFTER 4 DAYS Anaerobic Blood Culture - Preliminary NO GROWTH AFTER 4 DAYS Med Orders - Current: Current Medications Acetaminophen (Tylenol) 650 mg PO Q4H PRN PRN Reason: Pain (Mild 1-3)/fever Last Admin: 06/22/20 22:47 Dose: 650 mg Documented by: Albuterol/Ipratropium (Duoneb 3.0-0.5 Mg/3 Ml) 3 ml NEB Q4H PRN PRN Reason: Shortness Of Breath/wheezing Allopurinol (Zyloprim) 50 mg PO DAILY [facility] Last Admin: 06/24/20 08:54 Dose: 50 mg Documented by: Benzonatate (Tessalon Perles) 100 mg PO TID PRN PRN Reason: Cough Last Admin: 06/23/20 10:29 Dose: 100 mg Documented by: Brimonidine Tartrate (Alphagan 0.2% Ophth Soln) 0 ml EYEBOTH BID [facility] Last Admin: 06/24/20 09:02 Dose: 1 drop Documented by: Calcium Carbonate/Glycine (Tums) 500 mg PO BEDTIME [facility] Last Admin: 06/23/20 20:40 Dose: 500 mg Documented by: Enoxaparin Sodium (Lovenox) 40 mg SUBCUT DAILY [facility] Last Admin: 06/24/20 08:55 Dose: 40 mg Documented by: Guaifenesin (Mucinex) 1,200 mg PO BID [facility] Last Admin: 06/24/20 08:55 Dose: 1,200 mg Documented by: Lorazepam (Ativan) 0.5 mg PO Q6H PRN PRN Reason: Anxiety Last Admin: 06/24/20 11:25 Dose: 0.5 mg Documented by: Methylprednisolone Sodium Succinate (Solu-Medrol) 60 mg IVPUSH DAILY [facility] Last Admin: 06/24/20 08:55 Dose: 60 mg Documented by: Metoprolol Succinate (Toprol Xl) 25 mg PO DAILY [facility] Last Admin: 06/24/20 08:54 Dose: 25 mg Documented by: Ondansetron HCl (Zofran) 4 mg IV Q6H PRN PRN Reason: Nausea/Vomiting Polyethylene Glycol (Miralax) 17 gm PO DAILY PRN PRN Reason: Constipation Last Admin: 06/20/20 11:56 Dose: 17 gm Documented by: Psyllium Husk (Metamucil Sugar Free) 1 pkt PO DAILY PRN PRN Reason: Constipation Senna/Docusate Sodium (Senna Plus) 2 tab PO DAILY [facility] Last Admin: 06/24/20 08:54 Dose: 2 tab Documented by: Sertraline HCl (Zoloft) 50 mg PO DAILY [facility] Last Admin: 06/24/20 08:55 Dose: 50 mg Documented by: Sodium Chloride (Sodium Chloride) 1 gm PO BID [facility] Last Admin: 06/24/20 09:20 Dose: Not Given Documented by: Vit A/Vit C/Vit E/Selen/Cu/Zn/Lutei (Icaps Mv) 1 tab PO DAILY [facility] Last Admin: 06/24/20 08:54 Dose: 1 tab Documented by: Discontinued Medications Albuterol/Ipratropium (Duoneb 3.0-0.5 Mg/3 Ml) 3 ml NEB ONETIME ONE Stop: 06/20/20 06:41 Last Admin: 06/20/20 06:52 Dose: 3 ml Documented by: Allopurinol (Zyloprim) 50 mg PO DAILY [facility] Allopurinol (Zyloprim) 50 mg PO DAILY [facility] Last Admin: 06/22/20 10:11 Dose: 50 mg Documented by: Enoxaparin Sodium (Lovenox) 40 mg SUBCUT DAILY [facility] Last Admin: 06/22/20 10:05 Dose: 40 mg Documented by: Furosemide (Lasix) 20 mg PO DAILY [facility] Furosemide (Lasix) 20 mg PO DAILY [facility] Last Admin: 06/21/20 09:06 Dose: 20 mg Documented by: Guaifenesin (Mucinex) 1,200 mg PO ONETIME ONE Stop: 06/23/20 12:01 Last Admin: 06/23/20 12:37 Dose: 1,200 mg Documented by: Lactated Ringer's (Ringers, Lactated) 500 mls @ 999 mls/hr IV .BOLUS ONE Stop: 06/20/20 07:10 Last Admin: 06/20/20 07:38 Dose: 999 mls/hr Documented by: Lactated Ringer's (Ringers, Lactated) 500 mls @ 1,000 mls/hr IV .BOLUS ONE Stop: 06/20/20 08:19 Last Admin: 06/20/20 08:14 Dose: Not Given Documented by: Ceftriaxone Sodium 2 gm/ (Sodium Chloride) 100 mls @ 200 mls/hr IV ONETIME ONE Stop: 06/20/20 09:46 Last Admin: 06/20/20 09:34 Dose: 200 mls/hr Documented by: Ceftriaxone Sodium 2 gm/ (Sodium Chloride) 100 mls @ 200 mls/hr IV Q24H [facility] Last Admin: 06/21/20 08:33 Dose: 200 mls/hr Documented by: Lactated Ringer's (Ringers, Lactated) 1,000 mls @ 75 mls/hr IV ASDIRECTED [facility] Stop: 06/21/20 00:49 Last Admin: 06/20/20 11:56 Dose: 75 mls/hr Documented by: Lactated Ringer's (Ringers, Lactated) 1,000 mls @ 100 mls/hr IV ASDIRECTED [facility] Stop: 06/22/20 17:44 Last Admin: 06/22/20 10:49 Dose: 100 mls/hr Documented by: Lorazepam (Ativan) 0.5 mg PO Q6H PRN PRN Reason: Anxiety Lorazepam (Ativan) 0.5 mg PO Q6H PRN PRN Reason: Anxiety Last Admin: 06/22/20 10:02 Dose: 0.5 mg Documented by: Magnesium Oxide (Magnesium Oxide) 400 mg PO ONETIME ONE Stop: 06/20/20 12:32 Last Admin: 06/20/20 14:32 Dose: 400 mg Documented by: Methylprednisolone Sodium Succinate (Solu-Medrol) 125 mg IVPUSH ONETIME ONE Stop: 06/20/20 09:18 Last Admin: 06/20/20 09:32 Dose: 125 mg Documented by: Methylprednisolone Sodium Succinate (Solu-Medrol) 60 mg IVPUSH Q12H [facility] Last Admin: 06/22/20 10:06 Dose: 60 mg Documented by: Metoprolol Succinate (Toprol Xl) 50 mg PO DAILY [facility] Metoprolol Succinate (Toprol Xl) 50 mg PO DAILY [facility] Metoprolol Succinate (Toprol Xl) 25 mg PO DAILY [facility] Last Admin: 06/22/20 10:10 Dose: 25 mg Documented by: Non-Formulary Medication (Aspirin) 325 mg PO BID PRN PRN Reason: Other Non-Formulary Medication (Brimonidine) 1 drop EYEBOTH BID [facility] Non-Formulary Medication (Lorazepam) 0.5 mg PO Q6HR PRN PRN Reason: Anxiety Non-Formulary Medication (Lutein/Minerals/Vit A,C & E) 1 tab PO DAILY [facility] Non-Formulary Medication (Polyethylene Glycol [Polyox [id number]]) 1 dose PO DAILY PRN PRN Reason: Constipation Non-Formulary Medication (Psyllium) 1 dose PO DAILY PRN PRN Reason: Constipation Sertraline HCl (Zoloft) 25 mg PO DAILY [facility] Last Admin: 06/22/20 10:11 Dose: 25 mg Documented by: Sodium Polystyrene Sulfonate (Kayexalate) 15 gm PO ONETIME ONE Stop: 06/21/20 09:31 Last Admin: 06/21/20 11:11 Dose: 15 gm Documented by: Trazodone HCl (Trazodone) 50 mg PO ONETIME ONE Stop: 06/22/20 23:28 Last Admin: 06/22/20 23:41 Dose: 50 mg Documented by: - Exam Quality Assessment: Reports: Supplemental Oxygen (4L ), Central Line/PICC, DVT Prophylaxis. Denies: Urine Catheter General: Reports: Alert, Oriented, Cooperative, No Acute Distress HEENT: Reports: Pupils Equal, Pupils Reactive, Mucous Membr. Moist/[place] Neck: Reports: Supple, Trachea Midline Lungs: Reports: Decreased Breath Sounds, Rhonchi, Wheezing. Denies: Normal Respiratory Effort (Tachypneic) Cardiovascular: Reports: Regular Rate, Regular Rhythm GI/Abdominal Exam: Normal Bowel Sounds, Soft, Non-Tender, No Distention (Male) Exam: Deferred Rectal (Males) Exam: Deferred Back Exam: Reports: Normal Inspection, Full Range of Motion Extremities: Normal Inspection, Normal Range of Motion, Non-Tender, No Pedal Edema, Normal Capillary Refill, Other (Edema to left arm) Skin: Reports: Warm, Dry, Intact Neurological: Reports: No New Focal Deficit Psy/Mental Status: Reports: Alert, Anxious, Depressed
== END 2020-06-24 14:23 | disposition home health service (06) | DRG 191 ==
LOC: JD.ED 05:53 → JD.MS 09:36 → OBSVTOIN 06-22 07:35
PROVIDERS: ADMIT Family Medicine; ATTEND Family Medicine
DX: J44.1 Chronic obstructive pulmonary disease with (acute) exacerbation (principal); C78.00 Secondary malignant neoplasm of unspecified lung; C78.7 Secondary malignant neoplasm of liver and intrahepatic bile duct; C18.9 Malignant neoplasm of colon, unspecified; E87.1 Hypo-osmolality and hyponatremia; H54.7 Unspecified visual loss; F32.1 Major depressive disorder, single episode, moderate; R13.10 Dysphagia, unspecified; R63.4 Abnormal weight loss; M72.0 Palmar fascial fibromatosis [Dupuytren]; K21.9 Gastro-esophageal reflux disease without esophagitis; M19.90 Unspecified osteoarthritis, unspecified site; F32.9 Major depressive disorder, single episode, unspecified; H40.9 Unspecified glaucoma; E61.1 Iron deficiency; M10.9 Gout, unspecified; H35.30 Unspecified macular degeneration; L40.9 Psoriasis, unspecified; Z88.8 Allergy status to other drugs, medicaments and biological substances; Z20.822 Contact with and (suspected) exposure to COVID-19; Z79.82 Long term (current) use of aspirin; Z79.52 Long term (current) use of systemic steroids; N18.31 Chronic kidney disease, stage 3a; C34.90 Malignant neoplasm of unspecified part of unspecified bronchus or lung; K59.00 Constipation, unspecified; I95.9 Hypotension, unspecified; Z92.21 Personal history of antineoplastic chemotherapy; I12.9 Hypertensive chronic kidney disease with stage 1 through stage 4 chronic kidney disease, or unspecified chronic kidney disease; E88.09 Other disorders of plasma-protein metabolism, not elsewhere classified; E87.5 Hyperkalemia; F41.9 Anxiety disorder, unspecified; Z66 Do not resuscitate; Z88.1 Allergy status to other antibiotic agents; Z90.5 Acquired absence of kidney; Z86.73 Personal history of transient ischemic attack (TIA), and cerebral infarction without residual deficits; R06.00 Dyspnea, unspecified; Z98.890 Other specified postprocedural states; Z95.828 Presence of other vascular implants and grafts; Z87.891 Personal history of nicotine dependence; Z88.0 Allergy status to penicillin; Z88.2 Allergy status to sulfonamides; Z79.899 Other long term (current) drug therapy; Z90.49 Acquired absence of other specified parts of digestive tract; Z98.49 Cataract extraction status, unspecified eye; Z99.81 Dependence on supplemental oxygen; Z68.22 Body mass index [BMI] 22.0-22.9, adult
CPT/HCPCS: 36415 ×3; 71045; 80048 ×2; 80053; 81001; 83605; 83735 ×3; 84484; 85025 ×3; 85610; 87040 ×2; 93005; 94640; 94761 ×2; 96365; 96372; 96375; 96376 ×2; 97110; 97116 ×2; 97163; 97165; 97535; 99285; A9270 ×17; G0378 ×4; J0696 ×2; J1650; J2920 ×3; J2930; J7120 ×2; U0002; 94668; 96374; 97162-GP; 97530-GO; 97530-GP; 99220; 99226; 99233; 99239; 99284; J1642; J7620-GY; Q3014